=== PATIENT | male | born 1945 | race Caucasian/White ===

== ENCOUNTER 2016-04-25 13:59 | Outpatient (RCR) | payer MEDICARE, MEDICAID ==
[2016-02-29 14:20] LABS: BASOPHILS % (AUTO) 0 % (0-10); EOSINOPHILS % (AUTO) 1 % (0-10); LYMPHOCYTES # (AUTO) 0.8 X 10^3 (1.0-4.0); LYMPHOCYTES % (AUTO) 13 % (12-44); MEAN CORPUSCULAR HEMOGLOBIN 35 PG (25-34); MEAN CORPUSCULAR HGB CONC 32 G/DL (32-36); MEAN CORPUSCULAR VOLUME 110 FL (80-99); MEAN PLATELET VOLUME 10.9 FL (7.4-10.4); MONOCYTES # (AUTO) 0.7 X 10^3 (0.0-1.0); MONOCYTES % (AUTO) 12 % (0-12); NEUTROPHILS # (AUTO) 4.4 X 10^3 (1.8-7.8); NEUTROPHILS % (AUTO) 74 % (42-75); PLATELET COUNT 814 10^3/uL (130-400); RED BLOOD COUNT 3.07 10^6/uL (4.35-5.85); RED CELL DISTRIBUTION WIDTH 17.9 % (10.0-14.5); WHITE BLOOD COUNT 5.9 10^3/uL (4.3-11.0)
[2016-02-29 15:05] LABS: ALANINE AMINOTRANSFERASE 18 U/L (0-55); ALBUMIN 4.1 G/DL (3.2-4.5); ANION GAP 10 MMOL/L (5-14); ASPARTATE AMINO TRANSFERASE 18 U/L (5-34); BLOOD UREA NITROGEN 34 MG/DL (7-18); BUN/CREATININE RATIO 30; CALCIUM 8.9 MG/DL (8.5-10.1); CARBON DIOXIDE 18 MMOL/L (21-32); CHLORIDE 110 MMOL/L (98-107); CREATININE SERUM 1.13 MG/DL (0.60-1.30); GFR ESTIMATED > 60; GLUCOSE 90 MG/DL (70-105); POTASSIUM 4.2 MMOL/L (3.6-5.0); SODIUM 138 MMOL/L (135-145); TOTAL PROTEIN 7.2 G/DL (6.4-8.2)
[2016-02-29 16:43] LABS: %SAT TOTAL IRON BINDING CAPIC 33 % (15-50); TIBC 368 ug/dL (280-380)
[2016-03-01 08:08] LABS: UIBC 245 ug/dL (55-450)
[2016-03-01 08:09] LABS: FERRITIN 81 ng/mL (25-300)
[2016-03-28 14:19] LABS: BASOPHILS % (AUTO) 0 % (0-10); EOSINOPHILS % (AUTO) 0 % (0-10); LYMPHOCYTES % (AUTO) 13 % (12-44); MEAN CORPUSCULAR HEMOGLOBIN 34 PG (25-34); MEAN CORPUSCULAR HGB CONC 31 G/DL (32-36); MEAN CORPUSCULAR VOLUME 110 FL (80-99); MONOCYTES # (AUTO) 1.1 X 10^3 (0.0-1.0); MONOCYTES % (AUTO) 14 % (0-12); NEUTROPHILS # (AUTO) 5.6 X 10^3 (1.8-7.8); NEUTROPHILS % (AUTO) 72 % (42-75); PLATELET COUNT 755 10^3/uL (130-400); RED BLOOD COUNT 3.12 10^6/uL (4.35-5.85); RED CELL DISTRIBUTION WIDTH 16.7 % (10.0-14.5); WHITE BLOOD COUNT 7.8 10^3/uL (4.3-11.0)
[2016-03-28 14:58] LABS: ALBUMIN 4.1 G/DL (3.2-4.5); BILIRUBIN,TOTAL 1.1 MG/DL (0.1-1.0); CALCIUM 9.2 MG/DL (8.5-10.1); CREATININE SERUM 1.24 MG/DL (0.60-1.30); POTASSIUM 4.2 MMOL/L (3.6-5.0); TOTAL PROTEIN 7.1 G/DL (6.4-8.2)
[~2016-04-25 13:59] MED LIST: ACET650S13 PO; ALBU17AE3 IH; ANAG0.5C3 PO; ANAG1CAP2 PO; APIX2.5T PO; ASP325TEC PO; ASP81TEC PO; ASPI-892 PO; BENZ200C25 PO; CLIN300C11 PO; CPR500T PO; CYANOCOBALAMIN INJ 1000 MCG/ML (CANCER CENTER) ONE; DOXY100C42 PO; ENAL2.5T PO; ENAL5TAB PO; FAMO20TA5 PO; FOLI1TAB24 PO; FRSM20T PO; FURO20TA4 PO; HYDR118S10 PO; HYDR500C PO; HYDR500C2 PO; HYDROXUREA PO; IRON150C13 PO; KCL10CCR PO; LISI10TA2 PO; METO-270 PO; METO25TA PO; METO50TA7 PO; NF-ANAG0.5 PO; NF-HYD500C PO; OSLT75CRX PO; PANT40TA3 PO; PNT40TEC PO; POLY-IRON 150MG PO; PRD20T PO; PRM25T PO; RANI-10 PO; RANI150C11 PO; RNT150T PO; SCR1T1 PO; SENN1TAB76 PO; SUCR1TAB PO; hydro
[2016-04-25 14:25] LABS: BASOPHILS % (AUTO) 0 % (0-10); EOSINOPHILS % (AUTO) 0 % (0-10); LYMPHOCYTES # (AUTO) 0.8 X 10^3 (1.0-4.0); LYMPHOCYTES % (AUTO) 11 % (12-44); MEAN CORPUSCULAR HEMOGLOBIN 34 PG (25-34); MEAN CORPUSCULAR HGB CONC 31 G/DL (32-36); MEAN CORPUSCULAR VOLUME 107 FL (80-99); MEAN PLATELET VOLUME 10.9 FL (7.4-10.4); MONOCYTES # (AUTO) 0.7 X 10^3 (0.0-1.0); MONOCYTES % (AUTO) 11 % (0-12); NEUTROPHILS # (AUTO) 5.4 X 10^3 (1.8-7.8); NEUTROPHILS % (AUTO) 78 % (42-75); PLATELET COUNT 775 10^3/uL (130-400); RED BLOOD COUNT 3.18 10^6/uL (4.35-5.85); RED CELL DISTRIBUTION WIDTH 16.6 % (10.0-14.5)
[2016-04-25] MEDS ORDERED: CYANOCOBALAMIN INJ 1000 MCG/ML (CANCER CENTER) ONE (14:39)
[2016-04-25 15:03] LABS: CREATININE SERUM 1.2 MG/DL (0.60-1.30); POTASSIUM 4.1 MMOL/L (3.6-5.0)
[2016-04-25 16:53] LABS: %SAT TOTAL IRON BINDING CAPIC 22 % (15-50); TIBC 348 ug/dL (280-380)
[2016-04-26 08:14] LABS: FERRITIN 65 ng/mL (25-300); UIBC 270 ug/dL (55-450)
== END 2016-05-29 | disposition home or self-care (01) ==
LOC: ONC 13:59
PROVIDERS: ATTEND Internal Medicine Hematology & Oncology
DX: D69.6 Thrombocytopenia, unspecified (principal); D51.3 Other dietary vitamin B12 deficiency anemia; K58.9 Irritable bowel syndrome, unspecified; R73.9 Hyperglycemia, unspecified; K21.9 Gastro-esophageal reflux disease without esophagitis; Z79.899 Other long term (current) drug therapy; Z98.890 Other specified postprocedural states
CPT/HCPCS: 36415; 80053; 82607; 82728; 83540; 85025; 85045; 96372; 99213

== ENCOUNTER 2016-07-25 13:47 | Outpatient (RCR) | payer MEDICARE, MEDICAID ==
[2016-05-30 15:09] LABS: BASOPHILS % (AUTO) 0 % (0-10); EOSINOPHILS % (AUTO) 1 % (0-10); LYMPHOCYTES # (AUTO) 1.1 X 10^3 (1.0-4.0); LYMPHOCYTES % (AUTO) 16 % (12-44); MEAN CORPUSCULAR HEMOGLOBIN 32 PG (25-34); MEAN CORPUSCULAR HGB CONC 31 G/DL (32-36); MEAN CORPUSCULAR VOLUME 106 FL (80-99); MEAN PLATELET VOLUME 11.4 FL (7.4-10.4); MONOCYTES # (AUTO) 0.9 X 10^3 (0.0-1.0); MONOCYTES % (AUTO) 14 % (0-12); NEUTROPHILS # (AUTO) 4.6 X 10^3 (1.8-7.8); NEUTROPHILS % (AUTO) 70 % (42-75); PLATELET COUNT 624 10^3/uL (130-400); RED CELL DISTRIBUTION WIDTH 17.8 % (10.0-14.5); WHITE BLOOD COUNT 6.6 10^3/uL (4.3-11.0)
[2016-05-30 15:50] LABS: BILIRUBIN,TOTAL 1.2 MG/DL (0.1-1.0); CREATININE SERUM 1.43 MG/DL (0.60-1.30); POTASSIUM 4.5 MMOL/L (3.6-5.0); TOTAL PROTEIN 7.3 G/DL (6.4-8.2)
[2016-05-30 17:00] LABS: %SAT TOTAL IRON BINDING CAPIC 35 % (15-50); TIBC 348 ug/dL (280-380)
[2016-05-31 06:34] LABS: FERRITIN 41 ng/mL (25-300); UIBC 227 ug/dL (55-450)
[2016-06-27 14:43] LABS: BASOPHILS % (AUTO) 0 % (0-10); EOSINOPHILS % (AUTO) 0 % (0-10); LYMPHOCYTES # (AUTO) 0.9 X 10^3 (1.0-4.0); LYMPHOCYTES % (AUTO) 13 % (12-44); MEAN CORPUSCULAR HEMOGLOBIN 33 PG (25-34); MEAN CORPUSCULAR HGB CONC 32 G/DL (32-36); MEAN CORPUSCULAR VOLUME 105 FL (80-99); MEAN PLATELET VOLUME 11.7 FL (7.4-10.4); MONOCYTES # (AUTO) 0.8 X 10^3 (0.0-1.0); MONOCYTES % (AUTO) 11 % (0-12); NEUTROPHILS # (AUTO) 5.1 X 10^3 (1.8-7.8); NEUTROPHILS % (AUTO) 76 % (42-75); PLATELET COUNT 702 10^3/uL (130-400); RED BLOOD COUNT 3.31 10^6/uL (4.35-5.85); RED CELL DISTRIBUTION WIDTH 18.7 % (10.0-14.5); WHITE BLOOD COUNT 6.8 10^3/uL (4.3-11.0)
[2016-06-27 15:19] LABS: ALBUMIN 3.9 G/DL (3.2-4.5); BILIRUBIN,TOTAL 1.4 MG/DL (0.1-1.0); CALCIUM 8.8 MG/DL (8.5-10.1); CREATININE SERUM 1.42 MG/DL (0.60-1.30); TOTAL PROTEIN 7.2 G/DL (6.4-8.2)
[2016-07-25 14:11] LABS: BASOPHILS % (AUTO) 1 % (0-10); EOSINOPHILS % (AUTO) 1 % (0-10); LYMPHOCYTES # (AUTO) 1.1 X 10^3 (1.0-4.0); LYMPHOCYTES % (AUTO) 17 % (12-44); MEAN CORPUSCULAR HEMOGLOBIN 33 PG (25-34); MEAN CORPUSCULAR HGB CONC 31 G/DL (32-36); MEAN CORPUSCULAR VOLUME 107 FL (80-99); MEAN PLATELET VOLUME 11.2 FL (7.4-10.4); MONOCYTES # (AUTO) 0.9 X 10^3 (0.0-1.0); MONOCYTES % (AUTO) 16 % (0-12); NEUTROPHILS % (AUTO) 66 % (42-75); PLATELET COUNT 816 10^3/uL (130-400); RED BLOOD COUNT 3.24 10^6/uL (4.35-5.85); RED CELL DISTRIBUTION WIDTH 18.6 % (10.0-14.5); WHITE BLOOD COUNT 6.1 10^3/uL (4.3-11.0)
[2016-07-25 15:16] LABS: ALBUMIN 3.8 G/DL (3.2-4.5); BILIRUBIN,TOTAL 1.1 MG/DL (0.1-1.0); CREATININE SERUM 1.33 MG/DL (0.60-1.30); POTASSIUM 4.8 MMOL/L (3.6-5.0)
[2016-07-25] MEDS ORDERED: CYANOCOBALAMIN INJ 1000 MCG/ML (CANCER CENTER) INJ ONE (16:05)
== END 2016-08-28 | disposition home or self-care (01) ==
LOC: ONC 13:47
PROVIDERS: ATTEND Internal Medicine Hematology & Oncology
DX: D69.6 Thrombocytopenia, unspecified (principal); D51.3 Other dietary vitamin B12 deficiency anemia; K58.9 Irritable bowel syndrome, unspecified; R73.9 Hyperglycemia, unspecified; K21.9 Gastro-esophageal reflux disease without esophagitis; Z79.899 Other long term (current) drug therapy; Z98.890 Other specified postprocedural states
CPT/HCPCS: 36415; 80053; 82728; 83540; 85025; 96372; 99213

== ENCOUNTER → 2016-09-04 | Outpatient (CLI) | payer MEDICARE, MEDICAID ==
[~2016-09-04] MED LIST changes: -CYANOCOBALAMIN INJ 1000 MCG/ML (CANCER CENTER) ONE
--- NOTE | 2016-09-04 11:37 | Diagnostic Imaging Report ---
PROCEDURE: US left lower extremity venous. TECHNIQUE: Multiple real-time grayscale images were obtained over the left lower extremity in various projections. Additional duplex Doppler and color Doppler images were also obtained. INDICATION: Left leg pain and swelling. COMPARISON: 08/11/2015. TECHNIQUE: The left lower extremity deep venous system was interrogated from the common femoral vein through the popliteal vein. These images were assessed for grayscale appearance, color and spectral Doppler blood flow, compression, and augmentation. FINDINGS: There is no evidence of intraluminal filling defect. Normal compression and augmentation is noted throughout. Soft tissues are unremarkable. IMPRESSION: 1. No sonographic evidence of deep venous thrombosis in the left lower extremity. Dictated by: Dictated on workstation # [id number]
== END ==
LOC: RAD 11:04
PROVIDERS: ATTEND Internal Medicine Hematology & Oncology
DX: R22.42 Localized swelling, mass and lump, left lower limb (principal)

== ENCOUNTER 2016-11-01 14:12 | Outpatient (RCR) | payer MEDICARE, MEDICAID ==
[2016-09-04 10:39] LABS: BASOPHILS % (AUTO) 0 % (0-10); EOSINOPHILS # (AUTO) 0.1 10^3/uL (0.0-0.3); EOSINOPHILS % (AUTO) 1 % (0-10); LYMPHOCYTES # (AUTO) 0.8 X 10^3 (1.0-4.0); LYMPHOCYTES % (AUTO) 12 % (12-44); MEAN CORPUSCULAR HEMOGLOBIN 34 PG (25-34); MEAN CORPUSCULAR HGB CONC 32 G/DL (32-36); MEAN CORPUSCULAR VOLUME 106 FL (80-99); MEAN PLATELET VOLUME 11.5 FL (7.4-10.4); MONOCYTES # (AUTO) 0.6 X 10^3 (0.0-1.0); MONOCYTES % (AUTO) 8 % (0-12); NEUTROPHILS # (AUTO) 5.7 X 10^3 (1.8-7.8); NEUTROPHILS % (AUTO) 79 % (42-75); PLATELET COUNT 785 10^3/uL (130-400); RED BLOOD COUNT 3.46 10^6/uL (4.35-5.85); RED CELL DISTRIBUTION WIDTH 17.5 % (10.0-14.5); WHITE BLOOD COUNT 7.2 10^3/uL (4.3-11.0)
[2016-09-04 11:14] LABS: ALBUMIN 3.9 G/DL (3.2-4.5); BILIRUBIN,TOTAL 0.8 MG/DL (0.1-1.0); CALCIUM 9.2 MG/DL (8.5-10.1); CREATININE SERUM 1.69 MG/DL (0.60-1.30); POTASSIUM 5.2 MMOL/L (3.6-5.0); TOTAL PROTEIN 7.4 G/DL (6.4-8.2)
[2016-10-04 14:25] LABS: BASOPHILS % (AUTO) 1 % (0-10); EOSINOPHILS # (AUTO) 0.1 10^3/uL (0.0-0.3); EOSINOPHILS % (AUTO) 2 % (0-10); LYMPHOCYTES % (AUTO) 16 % (12-44); MEAN CORPUSCULAR HEMOGLOBIN 34 PG (25-34); MEAN CORPUSCULAR HGB CONC 32 G/DL (32-36); MEAN CORPUSCULAR VOLUME 106 FL (80-99); MEAN PLATELET VOLUME 11.3 FL (7.4-10.4); MONOCYTES % (AUTO) 17 % (0-12); NEUTROPHILS # (AUTO) 3.8 X 10^3 (1.8-7.8); NEUTROPHILS % (AUTO) 64 % (42-75); PLATELET COUNT 766 10^3/uL (130-400); RED BLOOD COUNT 3.12 10^6/uL (4.35-5.85); RED CELL DISTRIBUTION WIDTH 18.4 % (10.0-14.5); RETICULOCYTE % 1.72 % (0.50-2.40)
[2016-10-04 15:04] LABS: ALBUMIN 3.6 G/DL (3.2-4.5); BILIRUBIN,TOTAL 0.9 MG/DL (0.1-1.0); CALCIUM 9.2 MG/DL (8.5-10.1); CREATININE SERUM 1.74 MG/DL (0.60-1.30); POTASSIUM 5.1 MMOL/L (3.6-5.0); TOTAL PROTEIN 6.6 G/DL (6.4-8.2)
[~2016-11-01 14:12] MED LIST changes: +CYANOCOBALAMIN INJ 1000 MCG/ML (CANCER CENTER) ONE
[2016-11-01] MEDS ORDERED: CYANOCOBALAMIN INJ 1000 MCG/ML (CANCER CENTER) ONE (14:14)
[2016-11-01 14:22] LABS: BASOPHILS # (AUTO) 0.1 10^3/uL (0.0-0.1); BASOPHILS % (AUTO) 1 % (0-10); EOSINOPHILS # (AUTO) 0.2 10^3/uL (0.0-0.3); EOSINOPHILS % (AUTO) 2 % (0-10); LYMPHOCYTES % (AUTO) 13 % (12-44); MEAN CORPUSCULAR HEMOGLOBIN 34 PG (25-34); MEAN CORPUSCULAR HGB CONC 31 G/DL (32-36); MEAN CORPUSCULAR VOLUME 108 FL (80-99); MEAN PLATELET VOLUME 11.6 FL (7.4-10.4); MONOCYTES # (AUTO) 1.2 X 10^3 (0.0-1.0); MONOCYTES % (AUTO) 15 % (0-12); NEUTROPHILS # (AUTO) 5.4 X 10^3 (1.8-7.8); NEUTROPHILS % (AUTO) 69 % (42-75); PLATELET COUNT 782 10^3/uL (130-400); RED BLOOD COUNT 3.01 10^6/uL (4.35-5.85); RED CELL DISTRIBUTION WIDTH 18.4 % (10.0-14.5); WHITE BLOOD COUNT 7.9 10^3/uL (4.3-11.0)
[2016-11-01 14:40] LABS: ALBUMIN 3.6 GM/DL (3.2-4.5); BILIRUBIN,TOTAL 0.5 MG/DL (0.1-1.0); CREATININE SERUM 1.51 MG/DL (0.60-1.30); POTASSIUM 4.3 MMOL/L (3.6-5.0); TOTAL PROTEIN 7.3 GM/DL (6.4-8.2)
== END 2016-12-03 | disposition home or self-care (01) ==
LOC: ONC 14:12
PROVIDERS: ATTEND Internal Medicine Hematology & Oncology
DX: D69.6 Thrombocytopenia, unspecified (principal); D51.3 Other dietary vitamin B12 deficiency anemia; K58.9 Irritable bowel syndrome, unspecified; R73.9 Hyperglycemia, unspecified; K21.9 Gastro-esophageal reflux disease without esophagitis; Z79.899 Other long term (current) drug therapy; Z98.890 Other specified postprocedural states
CPT/HCPCS: 36415; 80053; 81270; 82728; 83540; 85025; 85045; 96372; 99213

== ENCOUNTER 2017-01-29 10:17 | Outpatient (RCR) | payer MEDICARE, MEDICAID ==
[2016-12-05 14:29] LABS: BASOPHILS % (AUTO) 1 % (0-10); EOSINOPHILS # (AUTO) 0.1 10^3/uL (0.0-0.3); EOSINOPHILS % (AUTO) 1 % (0-10); LYMPHOCYTES # (AUTO) 0.8 X 10^3 (1.0-4.0); LYMPHOCYTES % (AUTO) 10 % (12-44); MEAN CORPUSCULAR HEMOGLOBIN 34 PG (25-34); MEAN CORPUSCULAR HGB CONC 31 G/DL (32-36); MEAN CORPUSCULAR VOLUME 109 FL (80-99); MEAN PLATELET VOLUME 11.3 FL (7.4-10.4); MONOCYTES # (AUTO) 0.9 X 10^3 (0.0-1.0); MONOCYTES % (AUTO) 11 % (0-12); NEUTROPHILS # (AUTO) 5.9 X 10^3 (1.8-7.8); NEUTROPHILS % (AUTO) 77 % (42-75); PLATELET COUNT 684 10^3/uL (130-400); RED CELL DISTRIBUTION WIDTH 18.7 % (10.0-14.5); WHITE BLOOD COUNT 7.7 10^3/uL (4.3-11.0)
[2016-12-05 15:42] LABS: ALBUMIN 3.7 GM/DL (3.2-4.5); BILIRUBIN,TOTAL 0.9 MG/DL (0.1-1.0); CREATININE SERUM 1.6 MG/DL (0.60-1.30); POTASSIUM 5.1 MMOL/L (3.6-5.0); TOTAL PROTEIN 6.9 GM/DL (6.4-8.2)
[2017-01-02 15:06] LABS: BASOPHILS % (AUTO) 1 % (0-10); EOSINOPHILS % (AUTO) 1 % (0-10); LYMPHOCYTES # (AUTO) 0.8 X 10^3 (1.0-4.0); LYMPHOCYTES % (AUTO) 14 % (12-44); MEAN CORPUSCULAR HEMOGLOBIN 33 PG (25-34); MEAN CORPUSCULAR HGB CONC 31 G/DL (32-36); MEAN CORPUSCULAR VOLUME 107 FL (80-99); MEAN PLATELET VOLUME 11.9 FL (7.4-10.4); MONOCYTES # (AUTO) 0.9 X 10^3 (0.0-1.0); MONOCYTES % (AUTO) 15 % (0-12); NEUTROPHILS # (AUTO) 4.2 X 10^3 (1.8-7.8); NEUTROPHILS % (AUTO) 70 % (42-75); PLATELET COUNT 304 10^3/uL (130-400); RED BLOOD COUNT 3.01 10^6/uL (4.35-5.85); RED CELL DISTRIBUTION WIDTH 17.8 % (10.0-14.5); WHITE BLOOD COUNT 6.1 10^3/uL (4.3-11.0)
[2017-01-02 15:50] LABS: ALBUMIN 3.8 GM/DL (3.2-4.5); BILIRUBIN,TOTAL 0.9 MG/DL (0.1-1.0); CALCIUM 8.9 MG/DL (8.5-10.1); CREATININE SERUM 1.86 MG/DL (0.60-1.30); POTASSIUM 4.5 MMOL/L (3.6-5.0); TOTAL PROTEIN 6.8 GM/DL (6.4-8.2)
[2017-01-29] MEDS ORDERED: CYANOCOBALAMIN INJ 1000 MCG/ML (CANCER CENTER) ONE (10:19)
[2017-02-04] MEDS ORDERED: POTA10TA10 PO (00:04)
[2017-02-04] MEDS ORDERED: ANAG0.5C3 PO (00:04)
[2017-02-04] MEDS ORDERED: ONDA4TAB11 PO (02:08)
[2017-02-05] MEDS ORDERED: SUCR1TAB36 PO (11:58)
[2017-02-07] MEDS ORDERED: ASPI-983 PO (08:54)
[2017-02-07] MEDS ORDERED: ONDA4TAB8 PO (08:54)
[2017-02-07] MEDS ORDERED: IRON150C13 PO (10:14)
[2017-02-12] MEDS ORDERED: CIPR500T4 PO (11:17)
[2017-02-12] MEDS ORDERED: METR500T PO (11:17)
== END 2017-02-17 | disposition home or self-care (01) ==
LOC: ONC 10:17
PROVIDERS: ATTEND Internal Medicine Hematology & Oncology
DX: D69.6 Thrombocytopenia, unspecified (principal); D51.3 Other dietary vitamin B12 deficiency anemia; K58.9 Irritable bowel syndrome, unspecified; R73.9 Hyperglycemia, unspecified; K21.9 Gastro-esophageal reflux disease without esophagitis; Z79.899 Other long term (current) drug therapy; Z98.890 Other specified postprocedural states
CPT/HCPCS: 36415; 80053; 82274; 82728; 83540; 85025; 96372

== ENCOUNTER → 2017-02-01 | Outpatient (CLI) | payer MEDICARE, MEDICAID ==
[~2017-02-01] MED LIST changes: -CYANOCOBALAMIN INJ 1000 MCG/ML (CANCER CENTER) ONE
== END ==
LOC: PREOP 05:31
PROVIDERS: ATTEND Surgery
DX: Z01.818 Encounter for other preprocedural examination (principal); R10.13 Epigastric pain; K21.9 Gastro-esophageal reflux disease without esophagitis

== ENCOUNTER 2017-02-03 23:50 | Emergency (ER) | payer MEDICARE, MEDICAID ==
[~2017-02-03] VITALS: Ht 172.7 cm; Wt 59.0 kg
[2017-02-04] MEDS ORDERED: ANAG0.5C3 PO ×2 (00:04)
[2017-02-04] MEDS ORDERED: POTA10TA10 PO ×2 (00:04)
[2017-02-04] MEDS ORDERED: ONDANSETRON 4 MG (ZOFRAN) ORAL DISSOLVE TAB PO ONE (00:45)
--- NOTE | 2017-02-04 00:54 | ED GI ---
General Chief Complaint: Abdominal/GI Problems Stated Complaint: VOMITING Nursing Triage Note: NAUSEA/ABDOMINAL PAIN /P EATING TONIGHT Sepsis Screen: No Definite Risk Source of Information: Patient Exam Limitations: No Limitations History of Present Illness Time Seen By Provider: 00:38 Initial Comments Patient presents to ER by private conveyance with chief complaint that he felt good all day today within his woke up tonight and started having some epigastric pain and nausea with vomiting twice. She is no blood in the nausea or vomiting. He's had no diarrhea. No rash shortness of breath chest pain or history of coronary disease. He is not feeling numbness however he did have some sweats earlier. Allergies and Home Medications Allergies Coded Allergies: No Known Drug Allergies (Verified , 07/21/09) Home Medications Anagrelide HCl 0.5 Mg Capsule, (Reported) Aspirin 81 Mg Tabec, 81 MG PO DAILY, (Reported) Folic Acid 1 Mg Tablet, 1 MG PO DAILY, (Reported) LAST FILLED 12/13/15 #30 Furosemide 20 Mg Tablet, 20 MG PO DAILY, (Reported) Hydroxyurea 500 Mg Capsule, 500 MG PO DAILY, (Reported) Lisinopril 10 Mg Tablet, 10 MG PO DAILY, (Reported) Metoprolol Succinate 25 Mg Tab.er.24h, 25 MG PO DAILY, (Reported) Pantoprazole Sodium 40 Mg Tablet.dr, 40 MG PO DAILY, (Reported) Potassium Chloride 10 Meq Tablet.er, (Reported) Review of Systems Constitutional: No chills, diaphoresis EENTM: No Eye Pain, No Ear Pain Respiratory: Denies Cough, Denies Shortness of Air Cardiovascular: Denies Chest Pain, Denies Palpitations, Denies Syncope Gastrointestinal: See HPI, Abdominal Pain, Denies Constipated, Denies Diarrhea , Nausea Genitourinary: Denies Burning, Denies Discharge Musculoskeletal: No back pain, No joint pain Skin: No pruritus, No rash Psychiatric/Neurological: Denies Headache, Denies Numbness, Denies Paresthesia Past [id number]-[id number] Hx Patient Social History Alcohol Use: Denies Use Recreational Drug Use: No Smoking Status: Never a Smoker 2nd Hand Smoke Exposure: No Recent Foreign Travel: No Contact w/Someone Who Travel: No Recent Infectious Disease Expo: No Recent Hopitalizations: No Immunizations Up To Date Tetanus Booster (TDap): Unknown PED Vaccines UTD: No Seasonal Allergies Seasonal Allergies: No Surgeries History of Surgeries: Yes (Hip surgery 2010 Hemorrhoids, appendix, ulcers) Surgeries: Abdominal, Appendectomy, Cardiac, Joint Replacement, Orthopedic, Rectal Respiratory History of Respiratory Disorde: No Currently Using CPAP: No Currently Using BIPAP: No Cardiovascular History of Cardiac Disorders: Yes (CORONARY ARTERY DISEASE; CARDIAC CATHS --NO INTERVENTION; CHF) Cardiac Disorders: Chronic Edema/Swelling, Coronary Artery Disease, Deep Vein Thrombosis, High Cholesterol, Hypertension, Peripheral Vascular Neurological History of Neurological Disord: No Reproductive System Hx Reproductive Disorders: No Sexually Transmitted Disease: No HIV/AIDS: No Genitourinary History of Genitourinary Disor: No Gastrointestinal History of Gastrointestinal Di: Yes Gastrointestinal Disorders: Gastroesophageal Reflux, Gastrointestinal Bleed, Esophagitis, Hiatal Hernia, Ulcer Musculoskeletal History of Musculoskeletal Dis: Yes Musculoskeletal Disorders: Arthritis Endocrine History of Endocrine Disorders: No HEENT History of HEENT Disorders: No Loss of Vision: Denies Hearing Impairment: Denies Cancer History of Cancer: Yes (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) Cancer: Skin Psychosocial History of Psychiatric Problem: No Integumentary History of Skin or Integumenta: No Blood Transfusions History of Blood Disorders: Yes (ANEMIA, THROMBOCYTOPENIA) Adverse Reaction to a Blood Tr: No Family Medical History Significant Family History: No Pertinent Family Hx Physical Exam Vital Signs VS - Last 72 Hours, by Label 02/04/17 00:04 Temp 97.8 Pulse 55 Resp 18 B/P (MAP) 182/87 Pulse Ox 98 O2 Delivery Room Air Capillary Refill : Less Than 3 Seconds General Appearance: WD/WN, no apparent distress HEENT: PERRL/EOMI, TMs normal, pharynx normal Neck: non-tender, supple, normal inspection Respiratory: chest non-tender, lungs clear, normal breath sounds Cardiovascular: normal peripheral pulses, regular rate, rhythm, no edema Gastrointestinal: normal bowel sounds, soft, no organomegaly, tenderness ( epigastric) Extremities: normal range of motion, normal capillary refill Back: normal inspection, no CVA tenderness Neurologic/Psychiatric: alert, oriented x 3 Skin: normal color, warm/dry Progress/Results/Core Measures Results/Orders Lab Results Laboratory Tests Test 02/04/17 00:30 02/04/17 00:55 Range/Units White Blood Count 13.6 H 4.3-11.0 10^3/uL Red Blood Count 3.28 L 4.35-5.85 10^6/uL Hemoglobin 11.3 L 13.3-17.7 G/DL Hematocrit 35 L 40-54 % Mean Corpuscular Volume 105 H 80-99 FL Mean Corpuscular Hemoglobin 35 H 25-34 PG Mean Corpuscular Hemoglobin Concent 33 32-36 G/DL Red Cell Distribution Width 17.9 H 10.0-14.5 % Platelet Count 437 H 130-400 10^3/uL Mean Platelet Volume 11.9 H 7.4-10.4 FL Neutrophils (%) (Auto) 85 H 42-75 % Lymphocytes (%) (Auto) 5 L 12-44 % Monocytes (%) (Auto) 10 0-12 % Eosinophils (%) (Auto) 0 0-10 % Basophils (%) (Auto) 0 0-10 % Neutrophils # (Auto) 11.5 H 1.8-7.8 X 10^3 Lymphocytes # (Auto) 0.6 L 1.0-4.0 X 10^3 Monocytes # (Auto) 1.3 H 0.0-1.0 X 10^3 Eosinophils # (Auto) 0.0 0.0-0.3 10^3/uL Basophils # (Auto) 0.1 0.0-0.1 10^3/uL Sodium Level 146 H 135-145 MMOL/L Potassium Level 3.7 3.6-5.0 MMOL/L Chloride Level 110 H 98-107 MMOL/L Carbon Dioxide Level 21 21-32 MMOL/L Anion Gap 15 H 5-14 MMOL/L Blood Urea Nitrogen 24 H 7-18 MG/DL Creatinine 1.41 H 0.60-1.30 MG/DL Estimat Glomerular Filtration Rate 49 BUN/Creatinine Ratio 17 Glucose Level 144 H 70-105 MG/DL Calcium Level 9.5 8.5-10.1 MG/DL Magnesium Level 2.2 1.8-2.4 MG/DL Total Bilirubin 1.1 H 0.1-1.0 MG/DL Aspartate Amino Transf (AST/SGOT) 18 5-34 U/L Alanine Aminotransferase (ALT/SGPT) 14 0-55 U/L Alkaline Phosphatase 101 40-136 U/L Troponin I < 0.30 <0.30 NG/ML Total Protein 7.6 6.4-8.2 GM/DL Albumin 4.2 3.2-4.5 GM/DL Lipase 24 8-78 U/L Urine Color YELLOW Urine Clarity CLEAR Urine pH 6 5-9 Urine Specific Cascade 1.015 L 1.016-1.022 Urine Protein 1+ H NEGATIVE Urine Glucose (UA) NEGATIVE NEGATIVE Urine Ketones NEGATIVE NEGATIVE Urine Nitrite NEGATIVE NEGATIVE Urine Bilirubin NEGATIVE NEGATIVE Urine Urobilinogen NORMAL NORMAL MG/DL Urine Leukocyte Esterase NEGATIVE NEGATIVE Urine RBC (Auto) NEGATIVE NEGATIVE Urine RBC RARE /HPF Urine WBC NONE /HPF Urine Crystals NONE /LPF Urine Bacteria NEGATIVE /HPF Urine Casts NONE /LPF Urine Mucus NEGATIVE /LPF Urine Culture Indicated NO My Orders Orders - ALVARO JACOBS Cbc With Automated Diff (02/04/17 00:44) Comprehensive Metabolic Panel (02/04/17 00:44) Lipase (02/04/17 00:44) Magnesium (02/04/17 00:44) Troponin I (02/04/17 00:44) Ua Culture If Indicated (02/04/17 00:44) Chest 1 View, Ap/Pa Only (02/04/17 00:44) Ondansetron Oral Dissolve Tab (Zofran (02/04/17 00:45) Ekg Tracing (02/04/17 00:54) Rx-Ondansetron Po (Rx-Zofran Po) (02/04/17 02:06) Medications Given in ED Current Medications Medications Dose Ordered Sig/Sarbjit Route Start Time Stop Time Status Last Admin Dose Admin Ondansetron HCl 4 mg ONCE ONCE PO 02/04/17 00:45 02/04/17 00:49 DC 02/04/17 00:51 4 MG Vital Signs/I&O Vital Sign - Last 12Hours 02/04/17 00:04 Temp 97.8 Pulse 55 Resp 18 B/P (MAP) 182/87 Pulse Ox 98 O2 Delivery Room Air Blood Pressure Mean: 118 Progress Note : Time: 00:53 Progress Note Mild concern for atypical cardiac symptoms so we'll grab an EKG and a troponin as well however this does look like more likely to be a viral gastroenteritis. We'll check a urine and some basic labs thing about pancreas, or other worsening infections. ECG Initial ECG Impression Date: Feb 04, 2017 Initial ECG Impression Time: 01:05 Initial ECG Rate: 70 Initial ECG Rhythm: Normal Sinus Initial ECG Intervals: Normal Initial ECG Impression: Normal, Nonspecific Changes (premature ventricular contractions.) Initial ECG Comparisson: No Previous ECG Available Comment No ST wave elevation or depression Diagnostic Imaging Diagonstic Imaging: Xray Plain Films/CT/US/NM/MRI: chest Comments No acute cardiopulmonary processes noted. Reviewed: Reviewed by Me Departure Impression Impression: Primary Impression: Gastroenteritis Disposition: HOME, SELF-CARE Condition: Stable Departure-Patient Inst. Decision time for Depature: 02:07 Referrals: [facility] (PCP/Family) Primary Care Physician Patient Instructions: Viral Gastroenteritis Add. Discharge Instructions: Use the nausea medicine called Zofralessandra every 4 hours as needed by placing a tablet under your tongue and allow it to dissolve. Keep plenty of fluids on board get some rest use Tylenol or Motrin as necessary and if your symptoms get worse you can follow-up with her primary care physician. Expect this to last for about 3-5 days tops. All discharge instructions reviewed with patient and/ or family. Voiced understanding. Scripts Ondansetron (Ondansetron Odt) 4 Mg Tab.rapdis 4 MG PO Q6H Y for NAUSEA/VOMITING, #8 TAB 0 Refills Prov: ALVARO JACOBS 02/04/17 Copy Copies To 1: YUNIOR CAMPBELL DO ALVARO JACOBS Feb 04, 2017 00:53
[2017-02-04 01:02] LABS: BASOPHILS # (AUTO) 0.1 10^3/uL (0.0-0.1); BASOPHILS % (AUTO) 0 % (0-10); EOSINOPHILS % (AUTO) 0 % (0-10); LYMPHOCYTES # (AUTO) 0.6 X 10^3 (1.0-4.0); LYMPHOCYTES % (AUTO) 5 % (12-44); MEAN CORPUSCULAR HEMOGLOBIN 35 PG (25-34); MEAN CORPUSCULAR HGB CONC 33 G/DL (32-36); MEAN CORPUSCULAR VOLUME 105 FL (80-99); MEAN PLATELET VOLUME 11.9 FL (7.4-10.4); MONOCYTES # (AUTO) 1.3 X 10^3 (0.0-1.0); MONOCYTES % (AUTO) 10 % (0-12); NEUTROPHILS # (AUTO) 11.5 X 10^3 (1.8-7.8); NEUTROPHILS % (AUTO) 85 % (42-75); PLATELET COUNT 437 10^3/uL (130-400); RED BLOOD COUNT 3.28 10^6/uL (4.35-5.85); RED CELL DISTRIBUTION WIDTH 17.9 % (10.0-14.5); WHITE BLOOD COUNT 13.6 10^3/uL (4.3-11.0)
[2017-02-04 01:23] LABS: ALANINE AMINOTRANSFERASE 14 U/L (0-55); ALBUMIN 4.2 GM/DL (3.2-4.5); ANION GAP 15 MMOL/L (5-14); ASPARTATE AMINO TRANSFERASE 18 U/L (5-34); BILIRUBIN,TOTAL 1.1 MG/DL (0.1-1.0); BLOOD UREA NITROGEN 24 MG/DL (7-18); BUN/CREATININE RATIO 17; CALCIUM 9.5 MG/DL (8.5-10.1); CARBON DIOXIDE 21 MMOL/L (21-32); CHLORIDE 110 MMOL/L (98-107); CREATININE SERUM 1.41 MG/DL (0.60-1.30); GFR ESTIMATED 49; GLUCOSE 144 MG/DL (70-105); LIPASE 24 U/L (8-78); MAGNESIUM 2.2 MG/DL (1.8-2.4); POTASSIUM 3.7 MMOL/L (3.6-5.0); SODIUM 146 MMOL/L (135-145); TOTAL PROTEIN 7.6 GM/DL (6.4-8.2)
[2017-02-04 01:29] LABS: TROPONIN I < 0.30 NG/ML (<0.30)
[2017-02-04 01:54] LABS: BILIRUBIN,URINE NEGATIVE (NEGATIVE); KETONES,URINE NEGATIVE (NEGATIVE); LEUKOCYTE ESTERASE ,URINE NEGATIVE (NEGATIVE); NITRITE,URINE NEGATIVE (NEGATIVE); PH,URINE 6 (5-9); PROTEIN,URINE 1+ (NEGATIVE); UROBILINOGEN,URINE NORMAL (NORMAL)
[2017-02-04] MEDS ORDERED: RX-ONDANSETRON 4 MG ODT (ZOFRAN) PPK #4 PO STA (02:06)
[2017-02-04] MEDS ORDERED: ONDA4TAB11 PO ×2 (02:08)
[2017-02-04 02:14] VITALS: BP 181/96
--- NOTE | 2017-02-04 08:03 | Diagnostic Imaging Report ---
Portable chest. INDICATION: Nausea. Comparison made with prior examination from September 16, 2014. FINDINGS: Chronic interstitial lung changes are stable. There is no focal infiltrate or effusion. There is no pneumothorax. Heart size prominent without evidence of failure. There are multiple surgical clips within the upper abdomen. IMPRESSION: Stable radiographic appearance of the chest with chronic interstitial changes within the lungs. Cardiomegaly is stable. There is no evidence of failure or focal pulmonary infiltrate. Dictated by: Dictated on workstation # [id number]
[2017-02-05] MEDS ORDERED: SUCR1TAB36 PO ×2 (11:58)
== END 2017-02-04 02:14 | disposition home or self-care (01) ==
LOC: EDUNIT# 23:50 → ER 23:52
DX: K52.9 Noninfective gastroenteritis and colitis, unspecified (principal); I25.10 Atherosclerotic heart disease of native coronary artery without angina pectoris; E78.00 Pure hypercholesterolemia, unspecified; I11.0 Hypertensive heart disease with heart failure; I50.9 Heart failure, unspecified; I73.9 Peripheral vascular disease, unspecified; K21.9 Gastro-esophageal reflux disease without esophagitis; M19.90 Unspecified osteoarthritis, unspecified site; Z85.828 Personal history of other malignant neoplasm of skin; Z86.718 Personal history of other venous thrombosis and embolism; Z79.82 Long term (current) use of aspirin; Z87.19 Personal history of other diseases of the digestive system; Z90.49 Acquired absence of other specified parts of digestive tract
CPT/HCPCS: 36415; 71010; 80053; 81000; 83690; 83735; 84484; 85025; 93005

== ENCOUNTER 2017-02-05 09:57 | Day surgery (SDC) | payer MEDICARE, MEDICAID ==
[~2017-02-05] VITALS: Ht 172.7 cm; Wt 59.0 kg
[~2017-02-05 09:57] MED LIST changes: +ONDA4TAB11 PO; +POTA10TA10 PO
[2017-02-05] MEDS ORDERED: HURRICAINE EXT TUBE (BENZOCAINE) XX PRN (10:30)
[2017-02-05] MEDS ORDERED: NS IV 500 ML 500 ML IV PRN (10:30)
[2017-02-05 10:39] VITALS: BP 146/79
--- NOTE | 2017-02-05 11:24 | History & Physicial ---
History of Present Illness History of Present Illness Reason for visit/HPI to undergo an upper endoscopy regarding epigastric pain. Substernal pain and ruled out to be noncardiac in nature. Date of Admission Date Seen by Provider: Feb 05, 2017 Time Seen by Provider: 11:22 I consulted on this patient on 02/05/17 11:22 Attending Physician Monica Tay MD Admitting Physician [facility] Allergies and Home Medications Allergies Coded Allergies: No Known Drug Allergies (Verified , 07/21/09) Home Medications Anagrelide HCl 0.5 Mg Capsule, (Reported) Aspirin 81 Mg Tabec, 81 MG PO DAILY, (Reported) Folic Acid 1 Mg Tablet, 1 MG PO DAILY, (Reported) LAST FILLED 12/13/15 #30 Furosemide 20 Mg Tablet, 20 MG PO DAILY, (Reported) Hydroxyurea 500 Mg Capsule, 500 MG PO DAILY, (Reported) Lisinopril 10 Mg Tablet, 10 MG PO DAILY, (Reported) Metoprolol Succinate 25 Mg Tab.er.24h, 25 MG PO DAILY, (Reported) Ondansetron 4 Mg Tab.rapdis, 4 MG PO Q6H PRN for NAUSEA/VOMITING, #8 Ref 0 Prescribed by: ALVARO JACOBS on 02/04/17 0208 Pantoprazole Sodium 40 Mg Tablet.dr, 40 MG PO DAILY, (Reported) Potassium Chloride 10 Meq Tablet.er, (Reported) Past Klkscem-Erwjuu-Rzghiq Hx Patient Social History Marrital Status: single Employed/Student: unemployed Alcohol Use: Denies Use Recreational Drug Use: No Smoking Status: Never a Smoker 2nd Hand Smoke Exposure: No Recent Foreign Travel: No Contact w/other who traveled: No Recent Hopitalizations: No Recent Infectious Disease Expo: No Immunizations Up To Date Tetanus Booster (TDap): Unknown Pediatric: No Seasonal Allergies Seasonal Allergies: No Surgeries Yes (Hip surgery 2010 Hemorrhoids, appendix, ulcers) Abdominal, Appendectomy, Cardiac, Joint Replacement, Orthopedic, Rectal Respiratory No Currently Using CPAP: No Currently Using BIPAP: No Cardiovascular Yes (CORONARY ARTERY DISEASE; CARDIAC CATHS --NO INTERVENTION; CHF) Chronic Edema/Swelling, Coronary Artery Disease, Deep Vein Thrombosis, High Cholesterol, Hypertension, Peripheral Vascular Neurological No Reproductive System Hx Reproductive Disorders: No Sexually Transmitted Disease: No HIV/AIDS: No Genitourinary No Gastrointestinal Yes Gastroesophageal Reflux, Gastrointestinal Bleed, Esophagitis, Hiatal Hernia, Ulcer Musculoskeletal Yes Arthritis Endocrine History of Endocrine Disorders: No HEENT History of HEENT Disorders: No Loss of Vision: Denies Hearing Impairment: Denies Cancer Yes (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) Skin Psychosocial History of Psychiatric Problem: No Integumentary History of Skin or Integumenta: No Blood Transfusions History of Blood Disorders: Yes (ANEMIA, THROMBOCYTOPENIA) Adverse Reaction to a Blood Tr: No Family Medical History Significant Family History: No Pertinent Family Hx Constitutional: malaise, weakness EENTM: no symptoms reported Respiratory: no symptoms reported, see HPI Cardiovascular: chest pain Gastrointestinal: see HPI Genitourinary: no symptoms reported Musculoskeletal: back pain Skin: no symptoms reported Psychiatric/Neurological: Anxiety Physical Exam Vital Signs Vital Sign - Last 12Hours 02/05/17 10:39 Temp 98.7 Pulse 78 Resp 16 B/P (MAP) 146/79 Pulse Ox 97 O2 Delivery Room Air Capillary Refill : General Appearance: Anxious, Cachetic HEENT: TMs Normal Neck: Normal Inspection Respiratory: Lungs Clear Cardiovascular: Regular Rate, Rhythm Gastrointestinal: Non Tender, Soft Back: Normal Inspection Extremity: Normal Inspection Skin: Warm/Dry Assessment/Plan Assessment and Plan epigastric and substernal pain. Acute cardiac issues ruled out. For upper endoscopy. Previous distal gastrectomy with Billroth II anastomosis Problems: MONICA TAY MD Feb 05, 2017 11:24 am
--- NOTE | 2017-02-05 11:25 | Conscious Sedation/ASA ---
Conscious Sedation Pre-Proced Time Reviewed: 11:24 ASA Class: 3 Airway Mallampati Classification: ([place] appropriate class) I. II. III, IV Lungs Heart ASA score ASA 1: a normal healthy patient ASA 2: a patient with a mild systemic disease (mid diabetes, controlled hypertension, obesity ASA 3: a patient with a severe systemic disease that limits activity (angina , COPD, prior Myocardial infarction) ASA 4: a patient with an incapacitating disease that is a constant threat to life (CHF, renal failure) ASA 5: a moribund patient not expected to survive 24 hrs. (ruptured aneurysm) ASA 6: a declared brain patient whose organs are being harvested. For emergent operations, add the letter E after the classification Grade 1 Sedation Plan: Discussed options with patient/fam Note The patient is an appropriate candidate to undergo the planned procedure, sedation, and anesthesia. The patient immediately re-assessed prior to indication. MONICA TAY MD Feb 05, 2017 11:25 am
[2017-02-05] MEDS ORDERED: fentaNYL INJECTION 100 MCG/2 ML AMP ONE (11:27)
[2017-02-05] MEDS ORDERED: MIDAZOLAM 2 MG/2 ML (VERSED) VIAL ONE ×2 (11:28)
[2017-02-05] MEDS ORDERED: HURRICAINE EXT TUBE (BENZOCAINE) ONE (11:28)
[2017-02-05] MEDS: fentaNYL INJECTION 100 MCG/2 ML AMP IVP PRN ×2 (11:35→11:40)
[2017-02-05] MEDS: MIDAZOLAM 2 MG/2 ML (VERSED) VIAL IVP PRN ×2 (11:36→11:39)
--- NOTE | 2017-02-05 11:56 | Endo Procedure Record ---
Endo Procedure Report Date of Procedure Feb 05, 2017 Surgeon (s) MONICA TAY MD Post Procedure/Op Diagnosis post operative changes consistent with Billroth I reconstruction. Mild distal gastritis Procedure Performed EGD with biopsy Description of Procedure Anesthesia Type: Conscious Sedation Specimen(s) collected/removed mucosa of gastric body Description of the Procedure indication for procedure: This gentleman has been evaluated for substernal and epigastric pain. Once An acute cardiac event was ruled out, it was felt reasonable to perform an upper endoscopy. 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 Informed consent was obtained after reviewing the procedures in detail. Description of the procedure: She was placed supine on the gurney and conscious sedation achieved using Versed and fentanyl. The flexible gastroscope was introduced down the esophagus, past the gastric remnant into the small bowel. Findings: Esophagus: Mild of edematous with a short hiatal hernia Stomach: Postoperative changes consistent with a Billroth I reconstruction. There was minimal inflammation of the body of the stomach and a biopsy for H. pylori obtained. The small bowel itself looked normal. He tolerated the procedure well and was taken back to the nursing area in a stable condition. Impression:Epigastric pain. Postoperative changes in the stomach. Mild gastritis. We will try Carafate Copies To: NATASHA BILLINGSLEY MD Copies To: ANDRES ONTIVEROS MD, XAVIER M MD Feb 05, 2017 11:56 am
[2017-02-05] MEDS ORDERED: SUCR1TAB36 PO ×2 (11:58)
[2017-02-05 12:15] VITALS: BP 148/78
[2017-02-05 12:45] VITALS: BP 154/88
[2017-02-05 13:00] VITALS: BP 154/88
== END 2017-02-05 13:00 | disposition home or self-care (01) ==
LOC: ENDO 09:57
PROVIDERS: ATTEND Surgery
DX: K29.70 Gastritis, unspecified, without bleeding (principal); Z98.890 Other specified postprocedural states; I25.10 Atherosclerotic heart disease of native coronary artery without angina pectoris; I50.9 Heart failure, unspecified; E78.00 Pure hypercholesterolemia, unspecified; I10 Essential (primary) hypertension; I73.9 Peripheral vascular disease, unspecified; Z86.718 Personal history of other venous thrombosis and embolism

== ENCOUNTER 2017-02-06 21:20 | Inpatient (IN) | payer MEDICARE, MEDICAID ==
[~2017-02-06] VITALS: Ht 170.2 cm; Wt 62.3 kg
[~2017-02-06 21:20] MED LIST changes: -METO-270 PO; +METO-387 PO; +SUCR1TAB36 PO
[2017-02-06 21:52] LABS: BASOPHILS % (AUTO) 0 % (0-10); EOSINOPHILS % (AUTO) 0 % (0-10); LYMPHOCYTES # (AUTO) 0.5 X 10^3 (1.0-4.0); LYMPHOCYTES % (AUTO) 2 % (12-44); MEAN CORPUSCULAR HEMOGLOBIN 34 PG (25-34); MEAN CORPUSCULAR HGB CONC 33 G/DL (32-36); MEAN CORPUSCULAR VOLUME 103 FL (80-99); MEAN PLATELET VOLUME 12.3 FL (7.4-10.4); MONOCYTES # (AUTO) 2.1 X 10^3 (0.0-1.0); MONOCYTES % (AUTO) 9 % (0-12); NEUTROPHILS # (AUTO) 21.2 X 10^3 (1.8-7.8); NEUTROPHILS % (AUTO) 89 % (42-75); PLATELET COUNT 354 10^3/uL (130-400); RED BLOOD COUNT 3.57 10^6/uL (4.35-5.85); RED CELL DISTRIBUTION WIDTH 17.9 % (10.0-14.5); WHITE BLOOD COUNT 23.8 10^3/uL (4.3-11.0)
[2017-02-06 22:06] LABS: ALBUMIN 3.5 GM/DL (3.2-4.5); BILIRUBIN,TOTAL 2.6 MG/DL (0.1-1.0); CALCIUM 9.8 MG/DL (8.5-10.1); CREATININE SERUM 1.98 MG/DL (0.60-1.30); POTASSIUM 3.8 MMOL/L (3.6-5.0); TOTAL PROTEIN 7.4 GM/DL (6.4-8.2)
[2017-02-06 22:08] LABS: BILIRUBIN,URINE NEGATIVE (NEGATIVE); KETONES,URINE NEGATIVE (NEGATIVE); LEUKOCYTE ESTERASE ,URINE 1+ (NEGATIVE); NITRITE,URINE NEGATIVE (NEGATIVE); PH,URINE 5 (5-9); PROTEIN,URINE 2+ (NEGATIVE); UROBILINOGEN,URINE 1 MG/DL (NORMAL)
[2017-02-06 22:09] LABS: BAND NEUTROPHILS 4 %; BASOPHILS % (MANUAL) 0 %; EOSINOPHILS % (MANUAL) 0 %; LYMPHOCYTES % (MANUAL) 0 %; NEUTROPHILS % (MANUAL) 92 %; POLYCHROMASIA SLIGHT
[2017-02-06 22:10] LABS: HOWELL-JOLLY BODIES MARKED
[2017-02-06 22:16] LABS: WBC,URINE 0-2 /HPF
[2017-02-06] MEDS ORDERED: fentaNYL INJECTION 100 MCG/2 ML AMP IVP STA (23:23)
[2017-02-06] MEDS ORDERED: metroNIDAZOLE 500MG/100ML IVPB 100 ML IV ONE (23:30)
[2017-02-07] MEDS ORDERED: ONDANSETRON 4 MG/2 ML (SDV) Z0FRAN IVP ONE
[2017-02-07 00:25] VITALS: BP 149/64
[2017-02-07] MEDS ORDERED: CATHETER FLUSH 10 ML SYR IV PRN (01:15)
[2017-02-07] MEDS: fentaNYL INJECTION 100 MCG/2 ML AMP IV PRN ×3 (02:00→23:23)
[2017-02-07] MEDS: CIPROFLOXACIN 400 MG/D5W 200 ML (PRE-MIX) IV SCH ×2 (02:00→12:59)
[2017-02-07] MEDS: D5 1/2 NS W/KCL 20 MEQ/L 1,000 ML IV SCH ×4 (02:00→21:17)
[2017-02-07 04:00] VITALS: BP 139/74
--- NOTE | 2017-02-07 05:06 | ED Abdominal Pain ---
General Chief Complaint: Abdominal/GI Problems Stated Complaint: DIVERTICULITIS Nursing Triage Note: PT TO ED PER EMS FOR C/O ABD PAIN, N/V ET CONSTIPATION. PT REPORTS HE WAS SEEN IN THIS ED X2-3 DAYS AGO BUT DENIES IMPROVEMENT. ALSO REPORTS HE DID NOT F/U W / HIS PCP AFTER BEING SEEN IN THIS ED. NO OTHER C/O VOICED Sepsis Screen: No Definite Risk Source of Information: Patient, Old Records (ALL PMH IS FROM OLD RECORDS) Exam Limitations: Other (PT IS VERY POOR HISTORIAN ABOUT PMH AND DOES NOT KNOW HIS MEDICATIONS OR WHY/WHAT HE TAKES THEM FOR. ) History of Present Illness Time Seen By Provider: 21:45 Initial Comments C/O SEVERE LLQ PAIN SINCE THIS AM C/O NAUSEA AND HAS VOMITED X 8-9 TODAY NO DIARRHEA--NO BM IN 2 DAYS + SWEATS, AND POSSIBLY HAS HAD FEVER, BUT DID NOT CHECK TEMPERATURE NO URINARY SYMPTOMS PT WAS SEEN HERE 02/03/17 FOR EPIGASTRIC PAIN AND NAUSEA/VOMITING--DX WITH GASTROENTERITIS HAD EGD YESTERDAY BY DR. TAY WHICH SHOWED MILD GASTRITIS HAS HISTORY OF GI BLEEDS AND HAD STOMACH RESECTION FOR BLEEDING ULCERS IN THE PAST PCP: [facility] [place] SURGEON: DR. TAY' PICKLING TANK OPERATOR: DR. BILLINGSLEY HEMATOLOGY: DR. TALLEY Allergies and Home Medications Allergies Coded Allergies: No Known Drug Allergies (Verified , 07/21/09) Home Medications Anagrelide HCl 0.5 Mg Capsule, (Reported) Aspirin 81 Mg Tabec, 81 MG PO DAILY, (Reported) Folic Acid 1 Mg Tablet, 1 MG PO DAILY, (Reported) LAST FILLED 12/13/15 #30 Furosemide 20 Mg Tablet, 20 MG PO DAILY, (Reported) Hydroxyurea 500 Mg Capsule, 500 MG PO DAILY, (Reported) Lisinopril 10 Mg Tablet, 10 MG PO DAILY, (Reported) Metoprolol Succinate 25 Mg Tab.er.24h, 25 MG PO DAILY, (Reported) Ondansetron 4 Mg Tab.rapdis, 4 MG PO Q6H PRN for NAUSEA/VOMITING, #8 Ref 0 Prescribed by: ALVARO JACOBS on 02/04/17 0208 Pantoprazole Sodium 40 Mg Tablet.dr, 40 MG PO DAILY, (Reported) Potassium Chloride 10 Meq Tablet.er, (Reported) Sucralfate 1 Gm Tablet, 1 GM PO TID for 10 Days, #30 Ref 0 Prescribed by: MONICA TAY on 02/05/17 1158 Review of Systems Constitutional: see HPI, diaphoresis, fever EENTM: No Symptoms Reported Respiratory: No Symptoms Reported Cardiovascular: No Symptoms Reported Gastrointestinal: See HPI, Abdominal Pain, Constipated, Denies Diarrhea, Nausea , Poor Appetite, Poor Fluid Intake Genitourinary: No Symptoms Reported Musculoskeletal: no symptoms reported Skin: no symptoms reported Psychiatric/Neurological: No Symptoms Reported Endocrine: No Symptoms Reported Hematologic/Lymphatic: No Symptoms Reported Past Msfmynb-Dgozbe-Xodzlt Hx Patient Social History Alcohol Use: Denies Use Recreational Drug Use: No Smoking Status: Never a Smoker 2nd Hand Smoke Exposure: No Recent Foreign Travel: No Contact w/Someone Who Travel: No Recent Infectious Disease Expo: No Recent Hopitalizations: No Physical Abuse: No Sexual Abuse: No Mistreated: No Fear: No Immunizations Up To Date Tetanus Booster (TDap): Unknown PED Vaccines UTD: No Seasonal Allergies Seasonal Allergies: No Surgeries History of Surgeries: Yes ([facility] TOTAL HIP REPLACEMENT 2009; HEMORRHOIDECTOMY; EXPLORAROY LAP; STOMACH RESECTION FOR ULCERS/BILROTH 1; EGD'S/COLONOSCOPIES; CARDIAC CATH X 2--LAST ONE 08/2014) Surgeries: Abdominal, Appendectomy, Cardiac, Joint Replacement, Orthopedic, Rectal Respiratory History of Respiratory Disorde: Yes (ASPIRATION PNEUMONIA/SEPSIS 12/2015) Currently Using CPAP: No Currently Using BIPAP: No Cardiovascular History of Cardiac Disorders: Yes (CORONARY ARTERY DISEASE; CARDIAC CATHS --NO INTERVENTION; CHF; PVD RIGHT LEG) Cardiac Disorders: Chronic Edema/Swelling, Coronary Artery Disease, Deep Vein Thrombosis, High Cholesterol, Hypertension, Peripheral Vascular Neurological History of Neurological Disord: No Reproductive System Hx Reproductive Disorders: No Sexually Transmitted Disease: No HIV/AIDS: No Genitourinary History of Genitourinary Disor: Yes (RENAL CYSTS) Gastrointestinal History of Gastrointestinal Di: Yes Gastrointestinal Disorders: Gastroesophageal Reflux, Gastrointestinal Bleed, Esophagitis, Hiatal Hernia, Ulcer Musculoskeletal History of Musculoskeletal Dis: Yes Musculoskeletal Disorders: Arthritis Endocrine History of Endocrine Disorders: No HEENT History of HEENT Disorders: Yes (POOR DENTITION) Loss of Vision: Denies Hearing Impairment: Denies Cancer History of Cancer: Yes (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) Cancer: Skin Psychosocial History of Psychiatric Problem: No Suicide Risk Score: 0 Integumentary History of Skin or Integumenta: Yes (SKIN CANCER) Blood Transfusions History of Blood Disorders: Yes (ANEMIA, THROMBOCYTOPENIA) Adverse Reaction to a Blood Tr: No Family Medical History Significant Family History: No Pertinent Family Hx Family Medial History: Physical Exam Vital Signs VS - Last 72 Hours, by Label 02/06/17 21:20 Temp 97.5 Pulse 76 Resp 16 B/P (MAP) 149/84 Pulse Ox 95 O2 Delivery Room Air Capillary Refill : Less Than 3 Seconds General Appearance: no apparent distress, thin, other (DIRTY/UNKEMPT/MALODOROUS ; HICCUPS) HEENT: PERRL/EOMI, other (POOR DENTITION) Neck: normal inspection Respiratory: normal breath sounds, no respiratory distress, no accessory muscle use Cardiovascular: regular rate, rhythm, no murmur Gastrointestinal: normal bowel sounds, soft, no organomegaly, No distended, guarding (LLQ), rebound, tenderness (MILD EPIGASTRIC TENDERNESS; SEVERE LLQ TENDERNESS), No hernia, No mass Extremities: normal inspection, normal capillary refill Back: no CVA tenderness Neurologic/Psychiatric: job captain II-XII nml as tested, no motor/sensory deficits, alert, normal mood/affect, oriented x 3 Skin: normal color, warm/dry, No rash Focused Exam Evaluation Lactate Level Laboratory Tests 02/06/17 22:48: Lactic Acid Level 1.56 Lactic Acid Level Laboratory Tests Test 02/06/17 22:48 Lactic Acid Level 1.56 MMOL/L (0.50-2.00) Progress/Results/Core Measures Results/Orders Lab Results Laboratory Tests Test 02/06/17 21:25 02/06/17 21:55 02/06/17 22:48 Range/Units White Blood Count 23.8 H 4.3-11.0 10^3/uL Red Blood Count 3.57 L 4.35-5.85 10^6/uL Hemoglobin 12.2 L 13.3-17.7 G/DL Hematocrit 37 L 40-54 % Mean Corpuscular Volume 103 H 80-99 FL Mean Corpuscular Hemoglobin 34 25-34 PG Mean Corpuscular Hemoglobin Concent 33 32-36 G/DL Red Cell Distribution Width 17.9 H 10.0-14.5 % Platelet Count 354 130-400 10^3/uL Mean Platelet Volume 12.3 H 7.4-10.4 FL Neutrophils (%) (Auto) 89 H 42-75 % Lymphocytes (%) (Auto) 2 L 12-44 % Monocytes (%) (Auto) 9 0-12 % Eosinophils (%) (Auto) 0 0-10 % Basophils (%) (Auto) 0 0-10 % Neutrophils # (Auto) 21.2 H 1.8-7.8 X 10^3 Lymphocytes # (Auto) 0.5 L 1.0-4.0 X 10^3 Monocytes # (Auto) 2.1 H 0.0-1.0 X 10^3 Eosinophils # (Auto) 0.0 0.0-0.3 10^3/uL Basophils # (Auto) 0.0 0.0-0.1 10^3/uL Neutrophils % (Manual) 92 % Lymphocytes % (Manual) 0 % Monocytes % (Manual) 4 % Eosinophils % (Manual) 0 % Basophils % (Manual) 0 % Band Neutrophils 4 % Nucleated Red Blood Cells 1 Polychromasia SLIGHT Macrocytosis MODERATE Rob-Ashdown Bodies MARKED Sodium Level 143 135-145 MMOL/L Potassium Level 3.8 3.6-5.0 MMOL/L Chloride Level 108 H 98-107 MMOL/L Carbon Dioxide Level 23 21-32 MMOL/L Anion Gap 12 5-14 MMOL/L Blood Urea Nitrogen 44 H 7-18 MG/DL Creatinine 1.98 H 0.60-1.30 MG/DL Estimat Glomerular Filtration Rate 33 BUN/Creatinine Ratio 22 Glucose Level 128 H 70-105 MG/DL Calcium Level 9.8 8.5-10.1 MG/DL Total Bilirubin 2.6 H 0.1-1.0 MG/DL Aspartate Amino Transf (AST/SGOT) 19 5-34 U/L Alanine Aminotransferase (ALT/SGPT) 16 0-55 U/L Alkaline Phosphatase 87 40-136 U/L Total Protein 7.4 6.4-8.2 GM/DL Albumin 3.5 3.2-4.5 GM/DL Amylase Level 22 L 25-125 U/L Lipase 4 L 8-78 U/L Urine Color FREDY H Urine Clarity SLIGHTLY CLOUDY Urine pH 5 5-9 Urine Specific [place] 1.015 L 1.016-1.022 Urine Protein 2+ H NEGATIVE Urine Glucose (UA) NEGATIVE NEGATIVE Urine Ketones NEGATIVE NEGATIVE Urine Nitrite NEGATIVE NEGATIVE Urine Bilirubin NEGATIVE NEGATIVE Urine Urobilinogen 1 NORMAL MG/DL Urine Leukocyte Esterase 1+ H NEGATIVE Urine RBC (Auto) 1+ H NEGATIVE Urine RBC NONE /HPF Urine WBC 0-2 /HPF Urine Crystals NONE /LPF Urine Bacteria NONE /HPF Urine Casts NONE /LPF Urine Mucus SMALL H /LPF Urine Culture Indicated NO Lactic Acid Level 1.56 0.50-2.00 MMOL/L My Orders Orders - JAYDA MERRITT DO Saline Lock/Iv-Start (02/06/17 21:46) Amylase (02/06/17 21:46) Cbc With Automated Diff (02/06/17 21:46) Comprehensive Metabolic Panel (02/06/17 21:46) Lipase (02/06/17 21:46) Ua Culture If Indicated (02/06/17 21:46) Manual Differential (02/06/17 21:25) Ct Abdomen/Pelvis Wo (02/06/17 22:25) Lactic Acid Analyzer (02/06/17 22:40) Blood Culture (02/06/17 22:40) Vital Signs/I&O Vital Sign - Last 12Hours 02/06/17 21:20 Temp 97.5 Pulse 76 Resp 16 B/P (MAP) 149/84 Pulse Ox 95 O2 Delivery Room Air Blood Pressure Mean: 92 Progress Note : Progress Note PAIN AND NAUSEA EASED AT TIME OF ADMIT. NO DETERIORATION IN PT'S CONDITION DURING ER STAY Diagnostic Imaging Comments CT ABDOMEN/PELVIS--DIVERTICULOSIS WITH DIVERTICULITIS, REACTIVE ILEUS, OTHER NON -ACUTE FINDINGS--PER [facility] VIA FAX @ [phone] Reviewed: Reviewed by Me Departure Communication (Admissions) Progress Notes 5--SPOKE WITH DR. STOLL, SURGEON BUSINESS DEVELOPMENT ASSOCIATE. ADVISES TO ADMIT TO MEDICINE AND HAVE DR. TAY CONSULTED IN AM 2319--SPOKE WITH DR. VILLARREAL, ACCEPTS PT FOR ADMIT. Impression Impression: Primary Impression: Diverticulitis of intestine Additional Impressions: Renal insufficiency Dehydration Disposition: ADMITTED INPATIENT Condition: Improved Admissions Decision to Admit Reason: Admit from ER (General) Decision to Admit/Date: Feb 06, 2017 Time/Decision to Admit Time: 23:15 Departure-Patient Inst. Referrals: [facility] (PCP) Primary Care Physician JAYDA MERRITT DO Feb 07, 2017 05:06
[2017-02-07] MEDS: ONDANSETRON 4 MG/2 ML (SDV) Z0FRAN IV PRN ×4 (05:22→20:16)
[2017-02-07] MEDS: CATHETER FLUSH 10 ML SYR IV SCH ×3 (05:23→20:16)
[2017-02-07] MEDS: metroNIDAZOLE 500 MG/100 ML IVPB (PRE-MIX) IV SCH ×4 (05:23→23:23)
[2017-02-07 06:48] LABS: BASOPHILS % (AUTO) 0 % (0-10); EOSINOPHILS % (AUTO) 0 % (0-10); LYMPHOCYTES # (AUTO) 0.6 X 10^3 (1.0-4.0); LYMPHOCYTES % (AUTO) 3 % (12-44); MEAN CORPUSCULAR HEMOGLOBIN 34 PG (25-34); MEAN CORPUSCULAR HGB CONC 33 G/DL (32-36); MEAN CORPUSCULAR VOLUME 104 FL (80-99); MEAN PLATELET VOLUME 12.2 FL (7.4-10.4); MONOCYTES # (AUTO) 2.5 X 10^3 (0.0-1.0); MONOCYTES % (AUTO) 11 % (0-12); NEUTROPHILS # (AUTO) 19.6 X 10^3 (1.8-7.8); NEUTROPHILS % (AUTO) 86 % (42-75); PLATELET COUNT 357 10^3/uL (130-400); RED BLOOD COUNT 3.71 10^6/uL (4.35-5.85); RED CELL DISTRIBUTION WIDTH 17.9 % (10.0-14.5); WHITE BLOOD COUNT 22.7 10^3/uL (4.3-11.0)
[2017-02-07 07:09] LABS: ALBUMIN 3.5 GM/DL (3.2-4.5); BILIRUBIN,TOTAL 2.3 MG/DL (0.1-1.0); CALCIUM 9.5 MG/DL (8.5-10.1); CREATININE SERUM 1.67 MG/DL (0.60-1.30); POTASSIUM 3.8 MMOL/L (3.6-5.0); TOTAL PROTEIN 7.4 GM/DL (6.4-8.2)
[2017-02-07 08:17] VITALS: BP 146/77
[2017-02-07] MEDS: PANTOPRAZOLE 40 MG/10 ML (PROTONIX) VIAL IV SCH (08:19)
--- NOTE | 2017-02-07 08:50 | Diagnostic Imaging Report ---
PROCEDURE: CT abdomen and pelvis without contrast. TECHNIQUE: Multiple contiguous axial images were obtained through the abdomen and pelvis without the use of intravenous contrast. INDICATION: Throwing up, can't keep anything down. Lower abdominal pain. CORRELATION STUDY: 01/16/2016. FINDINGS: The lung bases are clear. Multiple surgical clips in the epigastric region. The unenhanced liver, atrophic pancreas, and adrenal glands are unremarkable. The spleen appears to be absent with perhaps a small splenule noted. Multiple hypodense masses, particularly of the left kidney, are present favoring probable cysts but could be localized cystic renal disease. No obstructive uropathy. Asymmetric atrophic changes, particularly of the left kidney, are noted. There is a hyperdense nodule in the superior pole of the left kidney present. An additional cyst with septation is noted. The abdominal aorta is normal in contour. There is diverticulosis with thickening of a segment of bowel with surrounding stranding and inflammatory change, suggestive of colonic diverticulitis of the sigmoid colon. There is the presence of moderate fluid-filled small bowel loops which may be a reactive ileus due to the diverticulitis. The possibility of enteritis or less likely obstruction is not excluded. No free air. The urinary bladder is decompressed. Significant metallic artifact owing to bilateral hip hardware obscures the pelvis. IMPRESSION: 1. The findings are compatible with likely sigmoid colon diverticulitis versus focal colitis. Fluid-filled mildly dilated loops of bowel are present, likely a reactive ileus secondary to these findings. The possibility of enteritis or less likely obstruction is not excluded. 2. Multiple renal nodules including complex cysts and hyperdense nodules are present. Correlation with a postcontrast enhanced or renal specific imaging would be recommended for followup on a nonemergent basis. Neoplasm should not be excluded at this time. 3. 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 4. A preliminary report was provided by [facility]. Dictated by: Dictated on workstation # [id number]
[2017-02-07] MEDS ORDERED: ONDA4TAB8 PO (08:54)
[2017-02-07] MEDS ORDERED: ASPI-983 PO (08:54)
[2017-02-07] MEDS ORDERED: IRON150C13 PO (10:14)
[2017-02-07 12:30] VITALS: BP 146/79
--- NOTE | 2017-02-07 13:24 | History & Physicial (CHS) ---
HPI History of Present Illness: Patient states he started having stomach problems about 3 days ago with nausea, vomiting and abdominal pain and just not feeling well. He denies diarrhea, in fact states he has had a hard time having a bowel movement and states his last BM and flatus that he recalls was about 2 days ago. He has not had fever that he knows of. He does have fairly significant difficulty in reporting his medical conditions and medications, which is typical for him. Exam Limitations: clinical condition Date seen by provider: Feb 07, 2017 Time Seen by Provider: 10:12 Attending Physician Antony San MD PCP [place],[facility] Consult Date of Admission Feb 06, 2017 at 11:20 pm Home Medications Home Medications Reviewed patient Home Medication Reconciliation Form Allergies Coded Allergies: No Known Drug Allergies (Verified , 07/21/09) PHK-Ntpuuj-Hoavbd Hx Patient Social History Alcohol Use: Denies Use Recreational Drug Use: No Smoking Status: Never a Smoker 2nd Hand Smoke Exposure: No Recent Foreign Travel: No Contact w/other who traveled: No Recent Hopitalizations: No Recent Infectious Disease Expo: No Physical Abuse Screen: No Sexual Abuse: No Immunizations Up To Date Tetanus Booster (TDap): Unknown Past Medical History PMHx: HTN Chronic non-ischemic systolic heart failure GERD Thrombocythemia Anemia Intermittent renal insufficiency BPH Posterior tibial vein thrombosis Pernicious anemia/B12 deficiency Rodrigues's esophagus PSurgHx: Right hip replacement Gastrectomy Splenectomy Appendectomy Family Medical History Significant Family History: No Pertinent Family Hx Family History: Review of Systems ([facility]) Constitutional: No dizziness, No fever, malaise EENTM: no symptoms reported Respiratory: No cough, No short of breath Cardiovascular: chest pain (intermittent brief episodes, none currently) Gastrointestinal: see HPI Genitourinary: no symptoms reported Musculoskeletal: No joint pain Skin: No rash Psychiatric/Neurological: No Symptoms Reported Reviewed Test Results Reviewed Test Results Lab Laboratory Tests Test 02/06/17 21:25 02/06/17 21:55 02/06/17 22:48 02/07/17 06:18 Range/Units White Blood Count 23.8 H 22.7 H 4.3-11.0 10^3/uL Red Blood Count 3.57 L 3.71 L 4.35-5.85 10^6/uL Hemoglobin 12.2 L 12.7 L 13.3-17.7 G/DL Hematocrit 37 L 38 L 40-54 % Mean Corpuscular Volume 103 H 104 H 80-99 FL Mean Corpuscular Hemoglobin 34 34 25-34 PG Mean Corpuscular Hemoglobin Concent 33 33 32-36 G/DL Red Cell Distribution Width 17.9 H 17.9 H 10.0-14.5 % Platelet Count 354 357 130-400 10^3/uL Mean Platelet Volume 12.3 H 12.2 H 7.4-10.4 FL Neutrophils (%) (Auto) 89 H 86 H 42-75 % Lymphocytes (%) (Auto) 2 L 3 L 12-44 % Monocytes (%) (Auto) 9 11 0-12 % Eosinophils (%) (Auto) 0 0 0-10 % Basophils (%) (Auto) 0 0 0-10 % Neutrophils # (Auto) 21.2 H 19.6 H 1.8-7.8 X 10^3 Lymphocytes # (Auto) 0.5 L 0.6 L 1.0-4.0 X 10^3 Monocytes # (Auto) 2.1 H 2.5 H 0.0-1.0 X 10^3 Eosinophils # (Auto) 0.0 0.0 0.0-0.3 10^3/uL Basophils # (Auto) 0.0 0.0 0.0-0.1 10^3/uL Neutrophils % (Manual) 92 % Lymphocytes % (Manual) 0 % Monocytes % (Manual) 4 % Eosinophils % (Manual) 0 % Basophils % (Manual) 0 % Band Neutrophils 4 % Nucleated Red Blood Cells 1 Polychromasia SLIGHT Macrocytosis MODERATE Rob-[place] Bodies MARKED Sodium Level 143 142 135-145 MMOL/L Potassium Level 3.8 3.8 3.6-5.0 MMOL/L Chloride Level 108 H 108 H 98-107 MMOL/L Carbon Dioxide Level 23 23 21-32 MMOL/L Anion Gap 12 11 5-14 MMOL/L Blood Urea Nitrogen 44 H 42 H 7-18 MG/DL Creatinine 1.98 H 1.67 H 0.60-1.30 MG/DL Estimat Glomerular Filtration Rate 33 41 BUN/Creatinine Ratio 22 25 Glucose Level 128 H 133 H 70-105 MG/DL Calcium Level 9.8 9.5 8.5-10.1 MG/DL Total Bilirubin 2.6 H 2.3 H 0.1-1.0 MG/DL Aspartate Amino Transf (AST/SGOT) 19 12 5-34 U/L Alanine Aminotransferase (ALT/SGPT) 16 14 0-55 U/L Alkaline Phosphatase 87 87 40-136 U/L Total Protein 7.4 7.4 6.4-8.2 GM/DL Albumin 3.5 3.5 3.2-4.5 GM/DL Amylase Level 22 L 25-125 U/L Lipase 4 L 8-78 U/L Urine Color FREDY H Urine Clarity SLIGHTLY CLOUDY Urine pH 5 5-9 Urine Specific [place] 1.015 L 1.016-1.022 Urine Protein 2+ H NEGATIVE Urine Glucose (UA) NEGATIVE NEGATIVE Urine Ketones NEGATIVE NEGATIVE Urine Nitrite NEGATIVE NEGATIVE Urine Bilirubin NEGATIVE NEGATIVE Urine Urobilinogen 1 NORMAL MG/DL Urine Leukocyte Esterase 1+ H NEGATIVE Urine RBC (Auto) 1+ H NEGATIVE Urine RBC NONE /HPF Urine WBC 0-2 /HPF Urine Crystals NONE /LPF Urine Bacteria NONE /HPF Urine Casts NONE /LPF Urine Mucus SMALL H /LPF Urine Culture Indicated NO Lactic Acid Level 1.56 0.50-2.00 MMOL/L Radiology CT abdomen/pelvis 02/06: "IMPRESSION: 1. The findings are compatible with likely sigmoid colon diverticulitis versus focal colitis. Fluid-filled mildly dilated loops of bowel are present, likely a reactive ileus secondary to these findings. The possibility of enteritis or less likely obstruction is not excluded. 2. Multiple renal nodules including complex cysts and hyperdense nodules are present. Correlation with a postcontrast enhanced or renal specific imaging would be recommended for followup on a nonemergent basis. Neoplasm should not be excluded at this time. 3. 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 4. A preliminary report was provided by [facility]." Physical Exam-([facility]) Physical Exam Vital Signs VS - Last 72 Hours, by Label 02/06/17 02/07/17 02/07/17 02/07/17 21:20 00:15 00:25 04:00 Temp 97.5 98.8 98.7 Pulse 76 75 78 74 Resp 16 18 18 18 B/P (MAP) 149/84 149/64 139/74 Pulse Ox 95 97 98 96 O2 Delivery Room Air Room Air Room Air Room Air 02/07/17 08:17 Temp 98.6 Pulse 76 Resp 22 B/P (MAP) 146/77 Pulse Ox 98 O2 Delivery Room Air Capillary Refill : Less Than 3 Seconds General Appearance: no apparent distress Respiratory: lungs clear, normal breath sounds Cardiovascular: regular rate, rhythm, no edema, no murmur Gastrointestinal: normal bowel sounds, distended, tenderness (diffuse) Extremities: no pedal edema Neurologic/Psychiatric: alert, normal mood/affect Skin: normal color, warm/dry Assessment/Plan Assessment/Plan Admission Dx Diverticulitis with reactive ileus Chronic macrocytic anemia Acute on chronic renal insufficiency Chronic bilirubin elevation History of thrombocythemia History of chronic systolic heart failure, stable Plan Diverticulitis with reactive ileus- with significant leukocytosis. supportive care with anti-emetics, IVF. Cipro/flagyl. Monitor status closely given report of significant time since flatus and frequent vomiting, may need NG for decompression Chronic macrocytic anemia due to vitamin B12 deficiency- on monthly B12 injections per Hematology, stable Acute on chronic renal insufficiency- appears slightly above baseline since May, chart review reveals that at 12/2016 Hematology visit plan was for referral to Nephrology; appears hypovolemic due to vomiting and poor intake, IVF and hold furosemide -Also note of renal cysts on CT scan which were present last year, may need further imaging evaluation non-emergently Chronic bilirubin elevation- unclear etiology, work-up per Hematology with no dilated bile ducts, plan for monitoring History of thrombocythemia- previously on hydroxyurea which is on home med list , but last Hematology note states that was discontinued and changed to Anagrelide due to worsening anemia. Anagrelide changed to 0.5 mg BID at last Hematology visit 12/2016 with goal of platelets less than 400 and hemoglobin over 10. Holding anagrelide for now due to nausea. History of chronic compensated systolic heart failure, stable- continue home metoprolol and aspirin, hold lisinopril d/t renal function and furosemide due to hypovolemia DVT ppx- enoxaparin Diagnosis/Problems: Clinical Quality Measures DVT/VTE Risk/Contraindication: Risk Factor Score Per Nursin RFS Level Per Nursing on Admit: 3=High Copy Copies To 1: ANDRES ONTIVEROS MD,ANTONY Mclain MD Feb 07, 2017 1:24 pm
[2017-02-07] MEDS: ENOXAPARIN 40 MG/0.4 ML (LOVENOX) SYR SQ SCH (14:06)
--- NOTE | 2017-02-07 16:01 | Consultation ---
History of Present Illness History of Present Illness Patient Consulted On(jay/time) 02/07/17 15:57 Date Seen by Provider: Feb 07, 2017 Time Seen by Provider: 15:58 Reason for Visit: LLQ pain with CT changes of sigmoid diverticulitis History of Present Illness See above Allergies and Home Medications Allergies Coded Allergies: No Known Drug Allergies (Verified , 07/21/09) Home Medications Anagrelide HCl 0.5 Mg Capsule, 0.5 MG PO BID, (Reported) Aspirin 81 Mg Tablet.dr, 81 MG PO DAILY, (Reported) Folic Acid 1 Mg Tablet, 1 MG PO DAILY, (Reported) Furosemide 20 Mg Tablet, 20 MG PO DAILY, (Reported) Hydroxyurea 500 Mg Capsule, 500 MG PO DAILY, (Reported) LAST FILLED #90 09-08-16 Iron Polysaccharide Complex 150 Mg Capsule, 150 MG PO BID, (Reported) Lisinopril 10 Mg Tablet, 10 MG PO DAILY, (Reported) LAST FILLED #30 12-19-16 Metoprolol Succinate 25 Mg Tab.er.24h, 25 MG PO DAILY, (Reported) Ondansetron 4 Mg Tab.rapdis, 4 MG PO Q6H PRN for NAUSEA/VOMITING-1ST LINE, ( Reported) Pantoprazole Sodium 40 Mg Tablet.dr, 40 MG PO DAILY, (Reported) Potassium Chloride 10 Meq Tablet.er, 10 MEQ PO DAILY, (Reported) Past Ncxujmc-Sjoxwi-Bdkwkp Hx Patient Social History Alcohol Use: Denies Use Recreational Drug Use: No Smoking Status: Never a Smoker 2nd Hand Smoke Exposure: No Recent Foreign Travel: No Contact w/Someone Who Travel: No Recent Infectious Disease Expo: No Recent Hopitalizations: No Physical Abuse: No Sexual Abuse: No Mistreated: No Fear: No Immunizations Up To Date Tetanus Booster (TDap): Unknown PED Vaccines UTD: No Seasonal Allergies Seasonal Allergies: No Surgeries History of Surgeries: Yes ([employer] TOTAL HIP REPLACEMENT 2009; HEMORRHOIDECTOMY; EXPLORAROY LAP; STOMACH RESECTION FOR ULCERS/BILROTH 1; EGD'S/COLONOSCOPIES; CARDIAC CATH X 2--LAST ONE 08/2014) Surgeries: Abdominal, Appendectomy, Cardiac, Joint Replacement, Orthopedic, Rectal Respiratory History of Respiratory Disorde: Yes (ASPIRATION PNEUMONIA/SEPSIS 12/2015) Currently Using CPAP: No Currently Using BIPAP: No Cardiovascular History of Cardiac Disorders: Yes (CORONARY ARTERY DISEASE; CARDIAC CATHS --NO INTERVENTION; CHF; PVD RIGHT LEG) Cardiac Disorders: Chronic Edema/Swelling, Coronary Artery Disease, Deep Vein Thrombosis, High Cholesterol, Hypertension, Peripheral Vascular Neurological History of Neurological Disord: No Reproductive System Hx Reproductive Disorders: No Sexually Transmitted Disease: No HIV/AIDS: No Genitourinary History of Genitourinary Disor: Yes (RENAL CYSTS) Gastrointestinal History of Gastrointestinal Di: Yes Gastrointestinal Disorders: Gastroesophageal Reflux, Gastrointestinal Bleed, Esophagitis, Hiatal Hernia, Ulcer Musculoskeletal History of Musculoskeletal Dis: Yes Musculoskeletal Disorders: Arthritis Endocrine History of Endocrine Disorders: No HEENT History of HEENT Disorders: Yes (POOR DENTITION) Loss of Vision: Denies Hearing Impairment: Denies Cancer History of Cancer: Yes (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) Cancer: Skin Psychosocial History of Psychiatric Problem: No Suicide Risk Score: 0 Integumentary History of Skin or Integumenta: Yes (SKIN CANCER) Blood Transfusions History of Blood Disorders: Yes (ANEMIA, THROMBOCYTOPENIA) Adverse Reaction to a Blood Tr: No Family Medical History Significant Family History: No Pertinent Family Hx Family Medial History: Physical Exam-General Problems Physical Exam Vital Signs Vital Sign - Last 12Hours 02/06/17 21:20 Temp 97.5 Pulse 76 Resp 16 B/P (MAP) 149/84 Pulse Ox 95 O2 Delivery Room Air Capillary Refill : Less Than 3 Seconds General Appearance: no apparent distress Neck: normal inspection Gastrointestinal: soft, other Comments Upper midline scar with no hernia. Mild LLQ tenderness Assessment/Plan Assessment/Plan Admission Diagnosis/Plan Sigmoid diverticulitis. Will manage with IV antiobiotics & observe Clinical Quality Measures DVT/VTE Risk/Contraindication: Risk Factor Score Per Nursin RFS Level Per Nursing on Admit: 3=High MONICA TAY MD Feb 07, 2017 4:01 pm
[2017-02-07 16:56] VITALS: BP 133/75
[2017-02-07 20:55] VITALS: BP 146/77
[2017-02-08] VITALS: BP 134/78
[2017-02-08] MEDS: ONDANSETRON 4 MG/2 ML (SDV) Z0FRAN IV PRN ×4 (00:04→23:19)
[2017-02-08] MEDS: CIPROFLOXACIN 400 MG/D5W 200 ML (PRE-MIX) IV SCH ×2 (01:12→12:28)
[2017-02-08] MEDS: metroNIDAZOLE 500 MG/100 ML IVPB (PRE-MIX) IV SCH ×4 (05:27→23:19)
[2017-02-08] MEDS: D5 1/2 NS W/KCL 20 MEQ/L 1,000 ML IV SCH ×4 (05:28→23:19)
[2017-02-08] MEDS: CATHETER FLUSH 10 ML SYR IV SCH ×3 (05:28→20:53)
[2017-02-08 06:00] LABS: BASOPHILS % (AUTO) 0 % (0-10); EOSINOPHILS % (AUTO) 0 % (0-10); LYMPHOCYTES # (AUTO) 0.7 X 10^3 (1.0-4.0); LYMPHOCYTES % (AUTO) 4 % (12-44); MEAN CORPUSCULAR HEMOGLOBIN 33 PG (25-34); MEAN CORPUSCULAR HGB CONC 31 G/DL (32-36); MEAN CORPUSCULAR VOLUME 106 FL (80-99); MONOCYTES # (AUTO) 2.1 X 10^3 (0.0-1.0); MONOCYTES % (AUTO) 12 % (0-12); NEUTROPHILS # (AUTO) 14.7 X 10^3 (1.8-7.8); NEUTROPHILS % (AUTO) 84 % (42-75); PLATELET COUNT 419 10^3/uL (130-400); RED BLOOD COUNT 3.35 10^6/uL (4.35-5.85); RED CELL DISTRIBUTION WIDTH 17.7 % (10.0-14.5); WHITE BLOOD COUNT 17.5 10^3/uL (4.3-11.0)
[2017-02-08 06:35] LABS: ALBUMIN 2.9 GM/DL (3.2-4.5); BILIRUBIN,TOTAL 1.3 MG/DL (0.1-1.0); CALCIUM 8.8 MG/DL (8.5-10.1); CREATININE SERUM 1.24 MG/DL (0.60-1.30); POTASSIUM 3.9 MMOL/L (3.6-5.0); TOTAL PROTEIN 6.1 GM/DL (6.4-8.2)
[2017-02-08 08:00] VITALS: BP 136/84
[2017-02-08] MEDS: ASPIRIN E.C. 81 MG (ECOTRIN) TAB PO SCH (08:21)
[2017-02-08] MEDS: PANTOPRAZOLE 40 MG/10 ML (PROTONIX) VIAL IV SCH (08:21)
[2017-02-08] MEDS: METOCLOPRAMIDE INJ 10 MG/2 ML (REGLAN) IVP PRN ×2 (11:22→20:53)
--- NOTE | 2017-02-08 11:49 | Progress Note (SOAP) ---
Subjective Date Seen by Provider: Feb 08, 2017 Time Seen by Provider: 09:15 Subjective/Events-last exam Nausea with slight decrease of pain over the left lower quadrant. Passing flatus. Poor appetite. Review of Systems General: No Chills, No Night Sweats, No Fatigue, No Malaise HEENT: No Head Aches, No Eye Pain, No Ear Pain, No Dysphasia, No Sinus Congestion, No Post Nasal Drip, No Sore Throat Pulmonary: Cough Cardiovascular: No: Chest Pain, Palpitations, Orthopnea, Paroxysmal Noc. Dyspnea, Edema, Lt Headedness Gastrointestinal: Nausea, Abdominal Pain Genitourinary: No Dysuria, No Frequency, No Incontinence, No Hematuria, No Retention Musculoskeletal: No: other, neck pain, shoulder pain, arm pain, back pain, hand pain, leg pain, foot pain Neurological: No: Weakness, Numbness, Incoordination, Change in speech, Confusion, Seizures, Other Objective Exam Vital Signs Date Time Temp Pulse Resp B/P (MAP) Pulse Ox O2 Delivery O2 Flow Rate FiO2 02/08/17 08:00 98.7 70 18 136/84 98 Room Air 02/08/17 00:00 99.2 73 16 134/78 96 Room Air 02/07/17 20:55 100.1 79 20 146/77 97 Room Air 02/07/17 16:56 98.7 76 20 133/75 98 Room Air 02/07/17 12:30 98.2 77 20 146/79 97 Room Air Capillary Refill : Less Than 3 Seconds General Appearance: Anxious HEENT: Normal ENT Inspection Neck: Normal Inspection Respiratory: Lungs Clear Gastrointestinal: non tender, soft Neurologic/Psychiatric: Alert, Oriented x3 Skin: Warm/Dry Results Lab Laboratory Tests 02/08/17 05:25: White Blood Count 17.5H, Red Blood Count 3.35L, Hemoglobin 11.1L, Hematocrit 36L , Mean Corpuscular Volume 106H, Mean Corpuscular Hemoglobin 33, Mean Corpuscular Hemoglobin Concent 31L, Red Cell Distribution Width 17.7H, Platelet Count 419H, Mean Platelet Volume 12.0H, Neutrophils (%) (Auto) 84H, Lymphocytes (%) (Auto) 4L, Monocytes (%) (Auto) 12, Eosinophils (%) (Auto) 0, Basophils (%) (Auto) 0, Neutrophils # (Auto) 14.7H, Lymphocytes # (Auto) 0.7L, Monocytes # ( Auto) 2.1H, Eosinophils # (Auto) 0.0, Basophils # (Auto) 0.0, Sodium Level 139, Potassium Level 3.9, Chloride Level 109H, Carbon Dioxide Level 21, Anion Gap 9, Blood Urea Nitrogen 26H, Creatinine 1.24, Estimat Glomerular Filtration Rate 57 , BUN/Creatinine Ratio 21, Glucose Level 149H, Calcium Level 8.8, Total Bilirubin 1.3H, Aspartate Amino Transf (AST/SGOT) 12, Alanine Aminotransferase ( ALT/SGPT) 11, Alkaline Phosphatase 65, Total Protein 6.1L, Albumin 2.9L, Smear Scan YES 02/08/17 10:09: Troponin I < 0.30 Microbiology 02/06/17 Blood Culture - Preliminary, Resulted No growth Assessment/Plan Assessment/Plan Assess & Plan/Chief Complaint Sigmoid diverticulitis. Will manage with IV antiobiotics & observe More diverticulitis. Symptomatic management and continue IV antibiotics. Clinical Quality Measures DVT/VTE Risk/Contraindication: Risk Factor Score Per Nursin RFS Level Per Nursing on Admit: 3=High MONICA TAY MD Feb 08, 2017 11:49
--- NOTE | 2017-02-08 11:53 | Progress Note (SOAP) ---
Subjective Subjective/Events-last exam Tmax 100.1. Is passing gas but still has a lot of abdominal pain and vomiting. At time of my exam this morning he reports recurrence of his left chest pain and is clutching his left chest. Review of Systems Date Seen by Provider: Feb 08, 2017 Time Seen by Provider: 09:50 Objective Exam Last Set of Vital Signs Vital Signs Date Time Temp Pulse Resp B/P (MAP) Pulse Ox O2 Delivery O2 Flow Rate FiO2 02/08/17 08:00 98.7 70 18 136/84 98 Room Air Capillary Refill : Less Than 3 Seconds I&O Intake and Output 02/09/17 00:00 Intake Total 1400 ml Output Total 450 ml Balance 950 ml Intake Oral 0 ml IV Total 1400 ml Output Urine Total 450 ml Emesis 0 ml General: Alert, Mild Distress Lungs: Clear to Auscultation, Normal Air Movement Heart: Regular Rate, No Murmurs Abdomen: Normal Bowel Sounds, Other (mildly distended, mild to moderate tenderness) Neuro: Normal Speech Psych/Mental Status: Mood NL Results/Procedures Lab Laboratory Tests 02/08/17 05:25: White Blood Count 17.5H, Red Blood Count 3.35L, Hemoglobin 11.1L, Hematocrit 36L , Mean Corpuscular Volume 106H, Mean Corpuscular Hemoglobin 33, Mean Corpuscular Hemoglobin Concent 31L, Red Cell Distribution Width 17.7H, Platelet Count 419H, Mean Platelet Volume 12.0H, Neutrophils (%) (Auto) 84H, Lymphocytes (%) (Auto) 4L, Monocytes (%) (Auto) 12, Eosinophils (%) (Auto) 0, Basophils (%) (Auto) 0, Neutrophils # (Auto) 14.7H, Lymphocytes # (Auto) 0.7L, Monocytes # ( Auto) 2.1H, Eosinophils # (Auto) 0.0, Basophils # (Auto) 0.0, Sodium Level 139, Potassium Level 3.9, Chloride Level 109H, Carbon Dioxide Level 21, Anion Gap 9, Blood Urea Nitrogen 26H, Creatinine 1.24, Estimat Glomerular Filtration Rate 57 , BUN/Creatinine Ratio 21, Glucose Level 149H, Calcium Level 8.8, Total Bilirubin 1.3H, Aspartate Amino Transf (AST/SGOT) 12, Alanine Aminotransferase ( ALT/SGPT) 11, Alkaline Phosphatase 65, Total Protein 6.1L, Albumin 2.9L, Smear Scan YES 9/21/17 10:09: Troponin I < 0.30 Microbiology 02/06/17 Blood Culture - Preliminary, Resulted No growth Radiology CT abdomen/pelvis 02/06: "IMPRESSION: 1. The findings are compatible with likely sigmoid colon diverticulitis versus focal colitis. Fluid-filled mildly dilated loops of bowel are present, likely a reactive ileus secondary to these findings. The possibility of enteritis or less likely obstruction is not excluded. 2. Multiple renal nodules including complex cysts and hyperdense nodules are present. Correlation with a postcontrast enhanced or renal specific imaging would be recommended for followup on a nonemergent basis. Neoplasm should not be excluded at this time. 3. 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 4. A preliminary report was provided by [facility]. Assessment/Plan Assessment/Plan Admission Dx Diverticulitis with reactive ileus Chronic macrocytic anemia Acute on chronic renal insufficiency Chronic bilirubin elevation History of thrombocythemia History of chronic systolic heart failure, stable Plan Diverticulitis with reactive ileus- with significant leukocytosis. supportive care with anti-emetics, IVF. Cipro/flagyl. Monitor status closely given report of significant time since flatus and frequent vomiting, may need NG for decompression 02/08- improving slightly with decreasing WBC and now passing flatus, continue antibiotics and supportive care Chronic macrocytic anemia due to vitamin B12 deficiency- on monthly B12 injections per Hematology, stable Acute on chronic renal insufficiency- appears slightly above baseline since May, chart review reveals that at 12/2016 Hematology visit plan was for referral to Nephrology; appears hypovolemic due to vomiting and poor intake, IVF and hold furosemide -Also note of renal cysts on CT scan which were present last year, may need further imaging evaluation non-emergently Chronic bilirubin elevation- unclear etiology, work-up per Hematology with no dilated bile ducts, plan for monitoring History of thrombocythemia- previously on hydroxyurea which is on home med list , but last Hematology note states that was discontinued and changed to Anagrelide due to worsening anemia. Anagrelide changed to 0.5 mg BID at last Hematology visit 12/2016 with goal of platelets less than 400 and hemoglobin over 10. Holding anagrelide for now due to nausea. History of chronic compensated systolic heart failure, stable- continue home metoprolol and aspirin, hold lisinopril d/t renal function and furosemide due to hypovolemia 02/08- recurrence of chest pain, EKG done with no ST elevation, troponin pending , will consult Cardiology as it appears from his records last visit/evaluation was in 2014 DVT ppx- enoxaparin Diagnosis/Problems: Clinical Quality Measures DVT/VTE Risk/Contraindication: Risk Factor Score Per Nursin RFS Level Per Nursing on Admit: 3=High ANTONY VILLARREAL MD Feb 08, 2017 11:53 am
--- NOTE | 2017-02-08 12:10 | Consultation-Cardiology ---
HPI-Cardiology Cardiology Consultation: Date of Consultation 02/08/17 Date of Admission Attending Physician Alisha San MD Admitting Physician Nirmala,[facility] Consulting Physician Elton MIDDLETON MD HPI: Time Seen by Provider: 12:05 Chief Complaint: Chest pain This is a 71-year-old gentleman who does not have diabetes or active smoking. He presented with abdominal pain 48 hours ago and was found to have diverticulitis. He is being treated with IV antibiotics and fluids. His condition has been improving. This morning he complained of mild substernal chest pain with no radiation. The chest pain lasted for 30 minutes. Intensity was 2/10. He's had these pains previously as well. He had an angiogram done previously which showed mild coronary artery disease in 08/2014. Normal LV function. Review of Systems-Cardiology Review of Systems Constitutional: No As described under HPI, No no symptoms reported, No chills, No fever, No lightheadedness, No malaise, No tiredness, No weight loss, No weight gain, No other Ears/Nose/Throat: No As described under HPI, No no symptoms reported, No chronic hearing loss, No epistaxis, No ear discharge, No ear pain, No loose teeth, No mouth pain, No mouth swelling, No nasal drainage, No nose pain, No recent hearing loss, No throat pain, No throat swelling, No ulcerations, No other Respiratory: No no symptoms reported, No As described under HPI, No cough, No orthopnea, No shortness of breath, No SOB with excertion, No SOB at rest, No stridor, No wheezing, No other Cardiovascular: chest pain Gastrointestinal: abdominal pain Genitourinary: No no symptoms reported, No As described under HPI, No burning, No dysuria, No discharge, No frequency, No flank pain, No hematuria, No incontinence, No pain, No urgency, No other, No urine frequency changes, No urine coloration changes Musculoskeletal: No no symptoms reported, No As describe under HPI, No back pain, No gout, No joint pain, No joint swelling, No muscle pain, No muscle stiffness, No neck pain, No other Skin: No no symptoms reported, No As described under HPI, No change in color, No change in hair/nails, No dryness, No lesions, No lumps, No rash, No other, No skin related problems, No ulcerations, No rash on exposed areas, No ulcerations on exposed areas Psychiatric/Neurological: No no symptoms reported, No As described under HPI, No anxiety, No depression, No emotional problems, No headache, No numbness, No pre-existing deficit, No seizure, No tingling, No tremors, No weakness, No other , No focal weakness, No syncope Hematologic: No no symptoms reported, No As described under HPI, No anemia, No blood clots, No easy bleeding, No easy bruising, No swollen glands, No other, No bleeding abnormalities AGV-[place]-Brvwdw Hx Patient Social History Alcohol Use: Denies Use Recreational Drug Use: No Smoking Status: Never a Smoker 2nd Hand Smoke Exposure: No Recent Foreign Travel: No Recent Infectious Disease Expo: No Hospitalization with Isolation: Denies Physical Abuse Screen: No Sexual Abuse: No Immunizations Up To Date Tetanus Booster (TDap): Unknown Past Medical History PMH As described under Assessment. Allergies and Home Medications Allergies Coded Allergies: No Known Drug Allergies (Verified , 07/21/09) Home Medications Anagrelide HCl 0.5 Mg Capsule, 0.5 MG PO BID, (Reported) Aspirin 81 Mg Tablet.dr, 81 MG PO DAILY, (Reported) Folic Acid 1 Mg Tablet, 1 MG PO DAILY, (Reported) Furosemide 20 Mg Tablet, 20 MG PO DAILY, (Reported) Hydroxyurea 500 Mg Capsule, 500 MG PO DAILY, (Reported) LAST FILLED #90 09-08-16 Iron Polysaccharide Complex 150 Mg Capsule, 150 MG PO BID, (Reported) Lisinopril 10 Mg Tablet, 10 MG PO DAILY, (Reported) LAST FILLED #30 12-19-16 Metoprolol Succinate 25 Mg Tab.er.24h, 25 MG PO DAILY, (Reported) Ondansetron 4 Mg Tab.rapdis, 4 MG PO Q6H PRN for NAUSEA/VOMITING-1ST LINE, ( Reported) Pantoprazole Sodium 40 Mg Tablet.dr, 40 MG PO DAILY, (Reported) Potassium Chloride 10 Meq Tablet.er, 10 MEQ PO DAILY, (Reported) Physical Exam-Cardiology Physical Exam Vital Signs/I&O Vital Sign - Last 12Hours 02/08/17 08:00 Temp 98.7 Pulse 70 Resp 18 B/P (MAP) 136/84 Pulse Ox 98 O2 Delivery Room Air Capillary Refill : Less Than 3 Seconds Constitutional: No appears stated age, No AAO x 3, No apparent distress, No PERRL, No well-developed, No well-nourished, No other HEENT: No PERRL, No normal ENT inspection, No TMs normal, No pharynx normal, No scleral icterus (R), No scleral icterus (L), No pale conjunctivae (R), No pale conjunctivae (L), No photophobia, No TM abnormal (R), No TM abnormal (L), No pharyngeal erythema, No tonsillar exudate, No other, No discharge, No EOMI, No hearing is well preserved, No hard of hearing, No oral hygience is good, No ulceration, No xanthelasmas are seen Neck: No non-tender, No full range of motion, No supple, No normal inspection, No carotid bruit, No limited range of motion, No lymphadenopathy (R), No lymphadenopathy (L), No tender lateral, No tender midline, No thyromegaly, No other, No carotid pulses are 2 + bilaterally, No with good upstrokes Respiratory: No accessory muscle use, No respiratory distress, No chest tender , No chest expansion is symmetric, No chest is bilaterally symmetric, No lungs clear to percussion, No lungs clear to auscultation, No crackles, No rhonchi, No rales, No stridor, No wheezing, No pleural rub, No other Cardiovascular: No regular rate-rhythm, No irregularly irregular, No extra beats, No parasternal heave is noted, No JVD, No edema, No bradycardia, No tachycardia, No point of maximal impulse, No cardiac thrills are palpable, No S1 and S2, No gallop/S3, No gallop/S4, No diastolic murmur, No systolic murmur, No friction rub, No click, No other Gastrointestinal: No tender, No soft, No round, No distended, No pulsatile mass , No organomegaly, No guarding, No rebound, No tenderness, No hernia, No mass, No audible bowel sounds, No abnormal bowel sounds, No abdominal bruits, No spleenomegaly, No other Rectal: deferred Extremities: No normal range of motion, No non-tender, No normal inspection, No pedal edema, No calf tenderness, No normal capillary refill, No pelvis stable , No calf tenderness, No inflammation, No pedal edema, No slow capillary refill , No swelling, No other, No abrasion, No clubbing, No cyanosis, No ecchymosis, No laceration, No no lower extremity edema bilateral, No significant edema, No tenderness, No wound Neurologic/Psychiatric: No product manager financial services II-XII nml as tested, No no motor/sensory deficits, No alert, No normal mood/affect, No oriented x 3, No abnormal cerebellar tests, No abnormal product manager financial services II-XII, No abnormal gait, No aphasia, No EOM palsy, No facial droop, No motor weakness, No sensory deficit, No depressed affect, No disoriented x 3, No other, No grossly intact, No power is 5/5 both on sides Skin: No normal color, No warm/dry, No cyanosis, No cool, No diaphoresis, No damp, No ecchymosis, No jaundice, No mottled, No pallor, No rash, No tattoos/ piercings, No ulcerations, No rash on exposed areas, No ulcerations on exposed areas, No other Data Review Labs Laboratory Tests 02/08/17 05:25: White Blood Count 17.5H, Red Blood Count 3.35L, Hemoglobin 11.1L, Hematocrit 36L , Mean Corpuscular Volume 106H, Mean Corpuscular Hemoglobin 33, Mean Corpuscular Hemoglobin Concent 31L, Red Cell Distribution Width 17.7H, Platelet Count 419H, Mean Platelet Volume 12.0H, Neutrophils (%) (Auto) 84H, Lymphocytes (%) (Auto) 4L, Monocytes (%) (Auto) 12, Eosinophils (%) (Auto) 0, Basophils (%) (Auto) 0, Neutrophils # (Auto) 14.7H, Lymphocytes # (Auto) 0.7L, Monocytes # ( Auto) 2.1H, Eosinophils # (Auto) 0.0, Basophils # (Auto) 0.0, Sodium Level 139, Potassium Level 3.9, Chloride Level 109H, Carbon Dioxide Level 21, Anion Gap 9, Blood Urea Nitrogen 26H, Creatinine 1.24, Estimat Glomerular Filtration Rate 57 , BUN/Creatinine Ratio 21, Glucose Level 149H, Calcium Level 8.8, Total Bilirubin 1.3H, Aspartate Amino Transf (AST/SGOT) 12, Alanine Aminotransferase ( ALT/SGPT) 11, Alkaline Phosphatase 65, Total Protein 6.1L, Albumin 2.9L, Smear Scan YES 02/08/17 10:09: Troponin I < 0.30 Microbiology 02/06/17 Blood Culture - Preliminary, Resulted No growth ECG Impression ECG Initial ECG Rhythm: Normal Sinus Comment Sinus rhythm with inferior T-wave inversions. A/P-Cardiology Assessment/Admission Diagnosis Acute diverticulitis, Chest pain, Hypertension Plan This is 71-year-old gentleman who has been admitted with acute diverticulitis. He is receiving conservative treatment with IV antibiotics and fluids. He complained of chest pain this morning. EKG showed sinus rhythm with inferior T- wave abnormality. First set of cardiac enzymes is negative. We'll repeat another set of cardiac enzymes in 4 hours. Echocardiogram is recommended. We will request another cardiac enzyme set in the morning. Likely nuclear stress test tomorrow. Thank you for your consultation. Please call me if you have any questions. Kaela Middleton MD, FACP, FACC, FSCAI, FHRS, CCDS Interventional Cardiology Cardiac Electrophysiology Vascular Medicine and Endovascular Interventions Clinical Quality Measures DVT/VTE Risk/Contraindication: Risk Factor Score Per Nursin RFS Level Per Nursing on Admit: 3=High Elton MIDDLETON MD Feb 08, 2017 12:10 pm
[2017-02-08] MEDS ORDERED: METOCLOPRAMIDE INJ 10 MG/2 ML (REGLAN) IVP SCH (14:00)
[2017-02-08] MEDS: ENOXAPARIN 40 MG/0.4 ML (LOVENOX) SYR SQ SCH (14:25)
[2017-02-08 16:56] VITALS: BP 148/68
[2017-02-09] VITALS: BP 137/75
[2017-02-09] MEDS: CIPROFLOXACIN 400 MG/D5W 200 ML (PRE-MIX) IV SCH (00:53)
[2017-02-09] MEDS: ONDANSETRON 4 MG/2 ML (SDV) Z0FRAN IV PRN (03:18)
[2017-02-09] MEDS: fentaNYL INJECTION 100 MCG/2 ML AMP IV PRN (03:22)
[2017-02-09 03:26] VITALS: BP 115/68
[2017-02-09] MEDS: metroNIDAZOLE 500 MG/100 ML IVPB (PRE-MIX) IV SCH (05:25)
[2017-02-09] MEDS: CATHETER FLUSH 10 ML SYR IV SCH ×2 (05:25→09:16)
[2017-02-09] MEDS: METOCLOPRAMIDE INJ 10 MG/2 ML (REGLAN) IVP PRN (05:26)
[2017-02-09 06:45] LABS: RED BLOOD COUNT 3.24 10^6/uL (4.35-5.85); RED CELL DISTRIBUTION WIDTH 17.6 % (10.0-14.5); WHITE BLOOD COUNT 14.8 10^3/uL (4.3-11.0)
[2017-02-09] MEDS: D5 1/2 NS W/KCL 20 MEQ/L 1,000 ML IV SCH (06:51)
[2017-02-09 07:06] LABS: ALANINE AMINOTRANSFERASE 9 U/L (0-55); ALBUMIN 2.7 GM/DL (3.2-4.5); ANION GAP 8 MMOL/L (5-14); ASPARTATE AMINO TRANSFERASE 11 U/L (5-34); BILIRUBIN,TOTAL 1.1 MG/DL (0.1-1.0); BLOOD UREA NITROGEN 15 MG/DL (7-18); BUN/CREATININE RATIO 14; CALCIUM 8.6 MG/DL (8.5-10.1); CARBON DIOXIDE 22 MMOL/L (21-32); CHLORIDE 109 MMOL/L (98-107); CREATININE SERUM 1.11 MG/DL (0.60-1.30); GFR ESTIMATED > 60; GLUCOSE 122 MG/DL (70-105); POTASSIUM 3.9 MMOL/L (3.6-5.0); SODIUM 139 MMOL/L (135-145); TOTAL PROTEIN 5.8 GM/DL (6.4-8.2)
[2017-02-09 08:00] VITALS: BP 159/71
[2017-02-09] MEDS ORDERED: REGADENOSON 0.4 MG/5 ML SYR (LEXISCAN) IV ONE ×2 (08:59→09:15)
[2017-02-09 09:12] VITALS: BP 140/79
--- NOTE | 2017-02-09 09:41 | Cardiology Progress Note ---
Cardiology SOAP Progress Note Subjective: mild chest discomfort overnight. Objective: I&O/Vital Signs Vital Sign - Last 12Hours 02/09/17 02/09/17 02/09/17 02/09/17 00:00 00:58 03:26 08:00 Temp 99.3 98.7 98.0 Pulse 70 70 72 76 Resp 17 18 24 B/P (MAP) 137/75 115/68 159/71 Pulse Ox 96 93 98 O2 Delivery Room Air Room Air Room Air 02/09/17 09:12 Pulse 78 Resp 16 B/P (MAP) 140/79 Pulse Ox 98 O2 Delivery Room Air Weight (Pounds): 137 Weight (Ounces): 6.0 Weight (Calculated Kilograms): [id number] Constitutional: No appears stated age, No AAO x 3, No apparent distress, No PERRL, No well-developed, No well-nourished, No other Respiratory: No accessory muscle use, No respiratory distress, No chest tender , No chest expansion is symmetric, No chest is bilaterally symmetric, No lungs clear to percussion, No lungs clear to auscultation, No crackles, No rhonchi, No rales, No stridor, No wheezing, No pleural rub, No other Cardiovascular: No regular rate-rhythm, No irregularly irregular, No extra beats, No parasternal heave is noted, No JVD, No edema, No bradycardia, No tachycardia, No point of maximal impulse, No cardiac thrills are palpable, No S1 and S2, No gallop/S3, No gallop/S4, No diastolic murmur, No systolic murmur, No friction rub, No click, No other Gastrointestional: No tender, No soft, No round, No distended, No pulsatile mass, No organomegaly, No guarding, No rebound, No tenderness, No hernia, No mass, No audible bowel sounds, No abnormal bowel sounds, No abdominal bruits, No spleenomegaly, No other Extremities: No normal range of motion, No non-tender, No normal inspection, No pedal edema, No calf tenderness, No normal capillary refill, No pelvis stable , No calf tenderness, No inflammation, No pedal edema, No slow capillary refill , No swelling, No other, No abrasion, No clubbing, No cyanosis, No ecchymosis, No laceration, No no lower extremity edema bilateral, No significant edema, No tenderness, No wound Neurologic/Psychiatric: No pelts skinner II-XII nml as tested, No no motor/sensory deficits, No alert, No normal mood/affect, No oriented x 3, No abnormal cerebellar tests, No abnormal pelts skinner II-XII, No abnormal gait, No aphasia, No EOM palsy, No facial droop, No motor weakness, No sensory deficit, No depressed affect, No disoriented x 3, No other, No grossly intact, No power is 5/5 both on sides Skin: No normal color, No warm/dry, No cyanosis, No cool, No diaphoresis, No damp, No ecchymosis, No jaundice, No mottled, No pallor, No rash, No tattoos/ piercings, No ulcerations, No rash on exposed areas, No ulcerations on exposed areas, No other Results/Procedures: Labs Laboratory Tests 02/08/17 10:09: Troponin I < 0.30 02/08/17 14:30: Troponin I < 0.30 02/09/17 05:37: White Blood Count 14.8H, Red Blood Count 3.24L, Hemoglobin 10.9L, Hematocrit 34L , Mean Corpuscular Volume 106H, Mean Corpuscular Hemoglobin 34, Mean Corpuscular Hemoglobin Concent 32, Red Cell Distribution Width 17.6H, Platelet Count 452H, Mean Platelet Volume 12.0H, Sodium Level 139, Potassium Level 3.9, Chloride Level 109H, Carbon Dioxide Level 22, Anion Gap 8, Blood Urea Nitrogen 15, Creatinine 1.11, Estimat Glomerular Filtration Rate > 60, BUN/Creatinine Ratio 14, Glucose Level 122H, Calcium Level 8.6, Total Bilirubin 1.1H, Aspartate Amino Transf (AST/SGOT) 11, Alanine Aminotransferase (ALT/SGPT) 9, Alkaline Phosphatase 61, Total Protein 5.8L, Albumin 2.7L Microbiology 02/06/17 Blood Culture - Preliminary, Resulted No growth A/P: Assessment/Dx: Acute diverticulitis, Chest pain, Hypertension Plan: This is 71-year-old gentleman who has been admitted with acute diverticulitis. He is receiving conservative treatment with IV antibiotics and fluids. Chest pain yesterday: EKG showed sinus rhythm with inferior T-wave abnormality. Acute coronary syndrome ruled out with 2 sets of negative serial cardiac enzymes. Echocardiogram shows normal ejection fraction with mild inferior hypokinesis. Nuclear stress test result pending. Thank you for your consultation. Please call me if you have any questions. Kaela Middleton MD, FACP, FACC, FSCAI, FHRS, CCDS Interventional Cardiology Cardiac Electrophysiology Vascular Medicine and Endovascular Interventions Elton MIDDLETON MD Feb 09, 2017 9:41 am
[2017-02-09] MEDS: ASPIRIN E.C. 81 MG (ECOTRIN) TAB PO SCH (10:03)
[2017-02-09] MEDS: PANTOPRAZOLE 40 MG/10 ML (PROTONIX) VIAL IV SCH (10:05)
--- NOTE | 2017-02-09 10:56 | Discharge Summary ---
Diagnosis/Chief Complaint Date of Admission Feb 06, 2017 at 11:20 pm Date of Discharge Feb 09, 2017 at 10:51 am Admission Diagnosis Admission Diagnosis Diverticulitis with reactive ileus Chronic macrocytic anemia Acute on chronic renal insufficiency Chronic bilirubin elevation History of thrombocythemia History of chronic systolic heart failure, stable Discharge Diagnosis Diverticulitis with reactive ileus- with significant leukocytosis. supportive care with anti-emetics, IVF. Cipro/flagyl. Monitor status closely given report of significant time since flatus and frequent vomiting, may need NG for decompression 02/08- improving slightly with decreasing WBC and now passing flatus, continue antibiotics and supportive care 02/09- passed stool since yesterday and feeling slightly improved, but still vomiting frequently, not yet able to tolerate oral antibiotics, transferred to swing bed status for further IV antibiotics Chronic macrocytic anemia due to vitamin B12 deficiency- on monthly B12 injections per Hematology, stable Acute on chronic renal insufficiency- appears slightly above baseline since May, chart review reveals that at 12/2016 Hematology visit plan was for referral to Nephrology; appears hypovolemic due to vomiting and poor intake, IVF and hold furosemide -Also note of renal cysts on CT scan which were present last year, may need further imaging evaluation non-emergently Chronic bilirubin elevation- unclear etiology, work-up per Hematology with no dilated bile ducts, plan for monitoring History of thrombocythemia- previously on hydroxyurea which is on home med list , but last Hematology note states that was discontinued and changed to Anagrelide due to worsening anemia. Anagrelide changed to 0.5 mg BID at last Hematology visit 12/2016 with goal of platelets less than 400 and hemoglobin over 10. Holding anagrelide for now due to nausea. History of chronic compensated systolic heart failure, stable- continue home metoprolol and aspirin, hold lisinopril d/t renal function and furosemide due to hypovolemia 02/08- recurrence of chest pain, EKG done with no ST elevation, troponin pending , will consult Cardiology as it appears from his records last visit/evaluation was in 02/09- seen by Cardiology, echocardiogram with normal EF, some inferior hypokinesis, stress test results pending. Chief Complaint/HPI Chief Complaint/HPI Patient states he started having stomach problems about 3 days ago with nausea, vomiting and abdominal pain and just not feeling well. He denies diarrhea, in fact states he has had a hard time having a bowel movement and states his last BM and flatus that he recalls was about 2 days ago. He has not had fever that he knows of. He does have fairly significant difficulty in reporting his medical conditions and medications, which is typical for him. Discharge Summary-Simple/Stand Consultations Discharge Physical Examination Allergies: Coded Allergies: No Known Drug Allergies (Verified , 07/21/09) Vitals & I&Os Vital Sign - Last 12Hours Date Time Temp Pulse Resp B/P (MAP) Pulse Ox O2 Delivery O2 Flow Rate FiO2 02/09/17 09:12 78 16 140/79 98 Room Air 02/09/17 08:00 98.0 General Appearance: Alert, No Acute Distress Respiratory: Clear to Auscultation, Normal Air Movement Cardiovascular: Regular Rate, No Murmurs Abdominal: Other (hypoactive bowel sounds, distended, moderate diffuse tenderness) Hospital Course See final discharge diagnosis. Labs Laboratory Tests Test 02/08/17 05:25 02/08/17 10:09 02/08/17 14:30 02/09/17 05:37 Range/Units White Blood Count 17.5 H 14.8 H 4.3-11.0 10^3/uL Red Blood Count 3.35 L 3.24 L 4.35-5.85 10^6/uL Hemoglobin 11.1 L 10.9 L 13.3-17.7 G/DL Hematocrit 36 L 34 L 40-54 % Mean Corpuscular Volume 106 H 106 H 80-99 FL Mean Corpuscular Hemoglobin 33 34 25-34 PG Mean Corpuscular Hemoglobin Concent 31 L 32 32-36 G/DL Red Cell Distribution Width 17.7 H 17.6 H 10.0-14.5 % Platelet Count 419 H 452 H 130-400 10^3/uL Mean Platelet Volume 12.0 H 12.0 H 7.4-10.4 FL Neutrophils (%) (Auto) 84 H 42-75 % Lymphocytes (%) (Auto) 4 L 12-44 % Monocytes (%) (Auto) 12 0-12 % Eosinophils (%) (Auto) 0 0-10 % Basophils (%) (Auto) 0 0-10 % Neutrophils # (Auto) 14.7 H 1.8-7.8 X 10^3 Lymphocytes # (Auto) 0.7 L 1.0-4.0 X 10^3 Monocytes # (Auto) 2.1 H 0.0-1.0 X 10^3 Eosinophils # (Auto) 0.0 0.0-0.3 10^3/uL Basophils # (Auto) 0.0 0.0-0.1 10^3/uL Sodium Level 139 139 135-145 MMOL/L Potassium Level 3.9 3.9 3.6-5.0 MMOL/L Chloride Level 109 H 109 H 98-107 MMOL/L Carbon Dioxide Level 21 22 21-32 MMOL/L Anion Gap 9 8 5-14 MMOL/L Blood Urea Nitrogen 26 H 15 7-18 MG/DL Creatinine 1.24 1.11 0.60-1.30 MG/DL Estimat Glomerular Filtration Rate 57 > 60 BUN/Creatinine Ratio 21 14 Glucose Level 149 H 122 H 70-105 MG/DL Calcium Level 8.8 8.6 8.5-10.1 MG/DL Total Bilirubin 1.3 H 1.1 H 0.1-1.0 MG/DL Aspartate Amino Transf (AST/SGOT) 12 11 5-34 U/L Alanine Aminotransferase (ALT/SGPT) 11 9 0-55 U/L Alkaline Phosphatase 65 61 40-136 U/L Total Protein 6.1 L 5.8 L 6.4-8.2 GM/DL Albumin 2.9 L 2.7 L 3.2-4.5 GM/DL Smear Scan YES Troponin I < 0.30 < 0.30 <0.30 NG/ML Radiology Reviewed CT abdomen/pelvis 02/06: "IMPRESSION: 1. The findings are compatible with likely sigmoid colon diverticulitis versus focal colitis. Fluid-filled mildly dilated loops of bowel are present, likely a reactive ileus secondary to these findings. The possibility of enteritis or less likely obstruction is not excluded. 2. Multiple renal nodules including complex cysts and hyperdense nodules are present. Correlation with a postcontrast enhanced or renal specific imaging would be recommended for followup on a nonemergent basis. Neoplasm should not be excluded at this time. 3. 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 4. A preliminary report was provided by [facility]. Discharge Instructions to patient/family Please see electronic discharge instructions given to patient. Discharge Medications Reviewed and agree with Discharge Medication list on patient's Discharge Instruction sheet Clinical Quality Measures DVT/VTE Risk/Contraindication: Risk Factor Score Per Nursin RFS Level Per Nursing on Admit: 3=High Copy Copies To 1: ANDRES ONTIVEROS MD, BETHANY N MD Feb 09, 2017 10:56
--- NOTE | 2017-02-12 07:27 | STRESS TEST ---
DATE OF SERVICE: 02/09/2017 REPORT TITLE: Pharmacological Nuclear Stress Test Report PRIMARY CARE PHYSICIAN: Dr. Sergio Middleton ATTENDING PHYSICIAN: Dr. Alisha San DIAGNOSIS: Chest pain, EKG changes. PROCEDURE DETAILS: This patient was brought to the stress lab after informed consent was taken. A stress test was performed according to the Lexiscan protocol. A 0.4 mg of Lexiscan was given IV. Low intensity exercise was performed. Baseline EKG shows sinus rhythm with heart rate of 78 BPM. Maximum heart rate was 103 BPM. Blood pressure was 150/69 mmHg. There was no chest pain, EKG changes, arrhythmias noted. A 10.13 mCi of Myoview were given for rest imaging and 31.0 mCi of Myoview were given for stress imaging. TID 1.07. EF 49%. There is a predominantly fixed apical defect with mild reversibility. Normal wall motion. SSS4, SRS1, SDS3. IMPRESSION AND CONCLUSION: 1. Pharmacological stress test negative for ischemia. 2. There is a predominantly fixed apical defect with mild reversibility. Clinical correlation is recommended. 3. Low normal LV function is noted. Job ID: [id number] DocumentID: [id number] Dictated Date: 02/09/2017 13:01:20 Clinical Pharmacy Technician Date: 02/09/2017 15:35:42 Dictated By: SERGIO MIDDLETON MD [facility]
[2017-02-12] MEDS ORDERED: METR500T PO ×2 (11:17)
[2017-02-12] MEDS ORDERED: CIPR500T4 PO ×2 (11:17)
[2017-04-06] MEDS ORDERED: DOCU-143 PO (11:43)
[2017-04-06] MEDS ORDERED: AMOX-358 PO (11:43)
[2017-04-06] MEDS ORDERED: FLUC100T PO (11:43)
[2017-04-06] MEDS ORDERED: APIX5TAB PO (11:43)
== END 2017-02-09 10:51 | disposition swing bed (61) | DRG 392 ==
LOC: EDUNIT# 21:22 → ER 21:23 → 4TH 23:20
PROVIDERS: ADMIT Family Medicine; ATTEND Family Medicine
DX: K57.32 Diverticulitis of large intestine without perforation or abscess without bleeding (principal); K56.7 Ileus, unspecified; D53.9 Nutritional anemia, unspecified; E53.8 Deficiency of other specified B group vitamins; N28.9 Disorder of kidney and ureter, unspecified; I12.9 Hypertensive chronic kidney disease with stage 1 through stage 4 chronic kidney disease, or unspecified chronic kidney disease; N18.9 Chronic kidney disease, unspecified; I50.22 Chronic systolic (congestive) heart failure; I25.10 Atherosclerotic heart disease of native coronary artery without angina pectoris; I73.9 Peripheral vascular disease, unspecified; K21.9 Gastro-esophageal reflux disease without esophagitis; R07.2 Precordial pain
CPT/HCPCS: 36415; 71010; 74176; 78452; 80053; 81000; 82150; 83605; 83690; 83735; 84484; 85007; 85025; 85027; 87040; 88305; 93005; 93017; 93306; 96365; 96375

== ENCOUNTER 2017-02-09 10:26 | Inpatient (IN) | payer MEDICARE, MEDICAID ==
[~2017-02-09] VITALS: Ht 170.2 cm; Wt 62.3 kg
[~2017-02-09 10:26] MED LIST changes: +ASPI-983 PO; +METO-270 PO; -METO-387 PO; +ONDA4TAB8 PO
[2017-02-09] MEDS ORDERED: ENOXAPARIN 40 MG/0.4 ML (LOVENOX) SYR SQ SCH (11:02)
[2017-02-09] MEDS ORDERED: CATHETER FLUSH 10 ML SYR IV PRN (11:02)
[2017-02-09] MEDS ORDERED: CIPROFLOXACIN 400 MG/D5W 200 ML (PRE-MIX) IV SCH (11:02)
[2017-02-09] MEDS: ONDANSETRON 4 MG/2 ML (SDV) Z0FRAN IV PRN ×2 (11:17→17:28)
[2017-02-09] MEDS: metroNIDAZOLE 500 MG/100 ML IVPB (PRE-MIX) IV SCH ×3 (12:01→23:01)
[2017-02-09] MEDS: D5 1/2 NS W/KCL 20 MEQ/L 1,000 ML IV SCH ×3 (12:26→20:04)
--- NOTE | 2017-02-09 13:05 | Progress Note (SOAP) ---
Subjective Date Seen by Provider: Feb 09, 2017 Time Seen by Provider: 13:04 Subjective/Events-last exam nausea improved. Left lower quadrant abdominal pain slightly better. Review of Systems General: No Chills, No Night Sweats, No Fatigue, No Malaise HEENT: No Head Aches, No Eye Pain, No Ear Pain, No Dysphasia, No Sinus Congestion, No Post Nasal Drip, No Sore Throat Pulmonary: No Dyspnea, No Cough, No Pleuritic Chest Pain Cardiovascular: No: Chest Pain, Palpitations, Orthopnea, Paroxysmal Noc. Dyspnea, Edema, Lt Headedness Gastrointestinal: Abdominal Pain Genitourinary: No Dysuria, No Frequency, No Incontinence, No Hematuria, No Retention Neurological: No: Weakness, Numbness, Incoordination, Change in speech, Confusion, Seizures, Other Objective Exam Capillary Refill : General Appearance: No Apparent Distress HEENT: Normal ENT Inspection Neck: Normal Inspection Respiratory: Lungs Clear Gastrointestinal: non tender, soft Neurologic/Psychiatric: Alert, Oriented x3 Skin: Warm/Dry Assessment/Plan Assessment/Plan Assess & Plan/Chief Complaint resolving sigmoid diverticulitis. We'll continue IV antibiotics. Encouraged to use incentive spirometry to avoid atelectasis and pneumonia. Final Diagnosis sigmoid diverticulitis Clinical Quality Measures DVT/VTE Risk/Contraindication: Risk Factor Score Per Nursin MONICA TAY MD Feb 09, 2017 1:05 pm
[2017-02-09] MEDS: CATHETER FLUSH 10 ML SYR IV SCH ×2 (13:26→21:37)
[2017-02-09] MEDS: CIPROFLOXACIN 400 MG/D5W 200 ML (PRE-MIX) IV SCH (13:26)
[2017-02-09] MEDS: ENOXAPARIN 40 MG/0.4 ML (LOVENOX) SYR SQ SCH (13:33)
--- NOTE | 2017-02-09 14:08 | Physical Therapy Evaluation ---
PT Evaluation-General Medical Diagnosis Admission Date Feb 09, 2017 at 10:54 Medical Diagnosis: diverticulitis with reactive ileus Onset Date: Feb 06, 2017 Therapy Diagnosis Therapy Diagnosis: debility Height/Weight Height (Feet): 5 Height (Inches): 7.00 Weight (Pounds): 137 Weight (Ounces): 6.0 Precautions Precautions/Isolations: Standard Precautions Referral Physician: Jaswinder Reason for Referral: Evaluation/Treatment Medical History Pertinent Medical History: CAD, GERD, Heart Failure, HTN, PVD, Renal Insufficiency Current History abdominal pain with N&V Reviewed History: Yes Social History Home: Apartment Current Living Status: Other Family Entry Into Home: Level Entry Prior/Core FIM Prior Level of Function Functional [place] Measure 0=Not Assessed/NA 4=Minimal Assistance 1=Total Assistance 5=Supervision or Setup 2=Maximal Assistance 6=Modified [place] 3=Moderate Assistance 7=Complete [place] Bed Mobility: 7 Transfers (B,C,W/C) (FIM): 7 Gait: 7 Locomotion: 7 PT Evaluation-Current Subjective Patient agrees to PT. Pain Numeric Pain Scale: 5-Moderate Pain Location: Lower Location Body Site: Abdomen Pain Description: Ache, Pressure Objective Patient Orientation: Normal For Age Problem Solving: Good Attachments: IV ROM/Strength ROM Lower Extremities bilateral LE WNL Strenght Lower Extremities 5/5 bilateral LE grossly Integumentary/Posture Integumentary refer to nursing notes Bowel Incontinence: No Bladder Incontinence: No Posture WNL Neuromuscular (Tone, Coordination, Reflexes) grossly intact Sensory Vision: Functional Hearing: Functional Sensation Right Lower Extremit: Intact Sensation Left Lower Extremity: Intact Transfers Functional [place] Measure 0=Not Assessed/NA 4=Minimal Assistance 1=Total Assistance 5=Supervision or Setup 2=Maximal Assistance 6=Modified [place] 3=Moderate Assistance 7=Complete [place] Transfers (B, C, W/C) (FIM): 7 Scootin Rollin Supine to/from Sit: 7 Sit to/from Stand: 7 Sit to Lying (QC): 6 Lying to Sitting/Side of Bed(Q: 6 Sit to Stand (QC): 6 Chair/[id number]-[id number] Xfer(QC): 6 Gait Does the Patient Walk?: Yes Mode of Locomotion: Walk Anticipated Mode of Locomotion: Walk Gait (FIM): 7 Distance (FIM): 3=150 ft Distance: 600' Walk 50 ft with 2 Turns(QC): 6 Walk 150 ft (QC): 6 Gait Level of Assist: 7 Gait Assistive Device: None Comments/Gait Description safe and functional Balance Sitting Static: Normal Sitting Dynamic: Normal Standing Static: Normal Standing Dynamic: Normal Treatment Patient performed bilateral LE exercises 25 reps each AP, LAQ, SLR, QS, HS Assessment/Needs 71 y.o. male, is currently at independent LOF with all gross motor skills safely and does not require skilled PT at this time. Patient is safe to ambulate PRN with staff or independently if not attached to IV. Rehab Potential: Good PT Plan Treatment/Plan Treatment Plan: Discontinue PT, goals met Treatment Plan: Education Treatment Duration: Feb 09, 2017 Frequency: 1 time per week Estimated Hrs Per Day: .5 hour per day Patient and/or Family Agrees t: Yes Discharge Recommendations Therapy D/C Recommendations: Home w/ Family Support Time/GCodes Time In: 1245 Time Out: 1315 Total Billed Treatment Time: 30 Total Billed Treatment 1 visit EVLowC 15 min FA 15 min KAITLYN KAISER PT Feb 09, 2017 14:08
--- NOTE | 2017-02-09 15:15 | Occupational Therapy Eval ---
OT Evaluation-General/PLF Medical Diagnosis Admission Date Feb 09, 2017 at 10:54 Medical Diagnosis: diverticulitis with reactive ileus Onset Date: Feb 06, 2017 Therapy Diagnosis Therapy Diagnosis: Decreased self care skills Height/Weight Height (Feet): 5 Height (Inches): 7.00 Weight (Pounds): 137 Weight (Ounces): 6.0 Precautions Precautions/Isolations: Standard Precautions Referral Physician: Jaswinder Medical History Pertinent Medical History: CAD, GERD, Heart Failure, HTN, PVD, Renal Insufficiency Additional Medical History right hip replacement, anemia Reviewed History: Yes Social History Home: Apartment Current Living Status: Other Family Entry Into Home: Level Entry Pt states son and grandson live with him, but he is often alone while they are at work ADL-Prior Level of Function ADL PLOF Comments Pt reports being independent with basic self care and mobility.Has a cane that he uses as needed. DME/Equipment: Tub/Shower Drive Self: Yes OT Current Status Subjective Pt in bed, agrees to treatment. Pt has no c/o pain during session. Mental Status/Objective Patient Orientation: Person, Place, Situation Attachments: IV Current Glasses/Contacts: Yes Hearing Aids: No Dentures/Partials: No Hand Dominance: Right Upper Extremity ROM Grossly WFL Upper Extremity Coordination Intact Upper Extremity Sensation Intact per pt report Upper Extremity Strength Grossly 4/5 ADL-Treatment ADL-Current Pt supine to sit without assistance. Pt is on liquid diet and states he has no difficulty feeding self or managing containers. Pt doffed socks without assistance, but has difficulty donning socks. Pt states this has been difficult for him since he hasn't been feeling well. Pt completes task with minimal assistance and increased time. Pt combed hair with modified independence. Sit to stand with modified independence. Gait to restroom without assistive device. Pt does not have any LOB, but is unsteady at times and holds onto wall or furniture. Pt demonstrated ability to complete toilet transfer with supervision. Pt states he has taken a shower, but had some assistance from nursing. Pt returned to bed with needs met after session. Functional [place] Measure 0=Not Assessed/NA 4=Minimal Assistance 1=Total Assistance 5=Supervision or Setup 2=Maximal Assistance 6=Modified [place] 3=Moderate Assistance 7=Complete IndependenceIRFPAI Quality Coding Scale 6 Independent with activity with or without an assistive device 5 Patient requires set up or clean up by helper. Patient completes activity by themselves 4 Supervision or touching assist (CGA). [place] provide cues , steadying assist 3 The helper provides less than half the effort to complete the activity 2 The helper provides more than half the effort to complete the activity 1 Dependent. The helper does all the effort to complete an activity 7 Patient refused to complete or attempt activity 9 The patient did not perform the activity before the current illness or injury 88 Not attempted due to Medical conditions or safety concerns Eating (FIM): 7 Eating (QC): 6 Grooming (FIM): 6 Lower Body Dressing (FIM): 4 (socks only) Toilet/Commode Transfer (FIM): 5 Toilet Transfer (QC): 5 Education OT Patient Education: Rehab process Teaching Recipient: Patient Teaching Methods: Discussion Response to Teaching: Verbalize Understanding OT Short Term Goals Short Term Goals 1=Demonstrate adherence to instructed precautions during ADL tasks. 2=Patient will verbalize/demonstrate understanding of assistive devices/ modifications for ADL. 3=Patient will improve strength/tolerance for activity to enable patient to perform ADL's. OT Alf Goals Cnc Operator Machinist Goals Time Frame: Feb 16, 2017 Eating (FIM): 7 Eating (QC): 6 Groomin Oral Hygiene (QC): 6 Bathing(FIM): 6 Upper Body Dressing(FIM): 6 Lower Body Dressing(FIM): 6 Toileting(FIM): 6 Toileting Hygiene (QC): 6 Toilet/Commode Transfer(FIM): 6 Toilet/Commode Transfer (QC): 6 Additional Goals: 1-Demonstrate ADL Tasks, 2-Verbalize Understanding, 3- ImproveStrength/Perri 1=Demonstrate adherence to instructed precautions during ADL tasks. 2=Patient will verbalize/demonstrate understanding of assistive devices/ modifications for ADL. 3=Patient will improve strength/tolerance for activity to enable patient to perform ADL's. OT Education/Plan Problem List/Assessment Assessment: Decreased Activ Tolerance, Dependent Transfers, Impaired Self-Care Skills Pt to benefit from skilled OT intervention for ADL training, transfers, and home safety education to improve level of independence and allow safe return home. Discharge Recommendations Plan/Recommendations: Continue POC Treatment Plan/Plan of Care Treatment,Training & Education: Yes Patient would benefit from OT for education, treatment and training to promote independence in ADL's, mobility, safety and/or upper extremity function for ADL' s. Plan of Care: ADL Retraining, Functional Mobility, UE Funct Exercise/Act Treatment Duration: Feb 16, 2017 Frequency: 5 times per week Estimated Hrs Per Day: .5 hour per day Rehab Potential: Good Time/GCodes Start Time: 14:05 Stop Time: 14:29 Total Time Billed (hr/min): 24 Billed Treatment Time 1 visit, EVL(9minutes), ADL(15minutes) CHERRI BAUER OT Feb 09, 2017 15:15
[2017-02-09 17:31] VITALS: BP 121/71
[2017-02-09] MEDS: METOCLOPRAMIDE INJ 10 MG/2 ML (REGLAN) IVP PRN (20:03)
[2017-02-10] MEDS: CIPROFLOXACIN 400 MG/D5W 200 ML (PRE-MIX) IV SCH ×2 (00:05→12:25)
[2017-02-10] MEDS: ONDANSETRON 4 MG/2 ML (SDV) Z0FRAN IV PRN ×3 (00:14→21:27)
[2017-02-10] MEDS: HYDROcodone/APAP 5 MG/325 MG (LORTAB) TAB PO PRN (00:14)
[2017-02-10] MEDS: D5 1/2 NS W/KCL 20 MEQ/L 1,000 ML IV SCH ×4 (05:02→23:32)
[2017-02-10] MEDS: metroNIDAZOLE 500 MG/100 ML IVPB (PRE-MIX) IV SCH ×4 (05:02→23:32)
[2017-02-10] MEDS: CATHETER FLUSH 10 ML SYR IV SCH ×3 (05:02→19:36)
[2017-02-10 06:00] VITALS: BP 127/66
[2017-02-10 06:51] LABS: MEAN PLATELET VOLUME 12.1 FL (7.4-10.4); RED BLOOD COUNT 3.04 10^6/uL (4.35-5.85); RED CELL DISTRIBUTION WIDTH 17.5 % (10.0-14.5); WHITE BLOOD COUNT 19.5 10^3/uL (4.3-11.0)
[2017-02-10 07:08] LABS: ALANINE AMINOTRANSFERASE 8 U/L (0-55); ALBUMIN 2.6 GM/DL (3.2-4.5); ANION GAP 7 MMOL/L (5-14); ASPARTATE AMINO TRANSFERASE 13 U/L (5-34); BILIRUBIN,TOTAL 0.9 MG/DL (0.1-1.0); BLOOD UREA NITROGEN 9 MG/DL (7-18); BUN/CREATININE RATIO 9; CALCIUM 8.5 MG/DL (8.5-10.1); CARBON DIOXIDE 22 MMOL/L (21-32); CHLORIDE 108 MMOL/L (98-107); CREATININE SERUM 1.02 MG/DL (0.60-1.30); GFR ESTIMATED > 60; GLUCOSE 107 MG/DL (70-105); SODIUM 137 MMOL/L (135-145); TOTAL PROTEIN 5.4 GM/DL (6.4-8.2)
[2017-02-10] MEDS: PANTOPRAZOLE 40 MG/10 ML (PROTONIX) VIAL IV SCH (08:53)
[2017-02-10] MEDS: ASPIRIN E.C. 81 MG (ECOTRIN) TAB PO SCH (08:53)
--- NOTE | 2017-02-10 10:52 | Progress Note (SOAP) ---
Subjective Date Seen by Provider: Feb 10, 2017 Time Seen by Provider: 10:40 Subjective/Events-last exam Patient seen with Dr. Contreras. Patient reports doing well today. No BM or flatus today. Reports nausea with breakfast this AM but no vomiting. Patient sitting in bedside chair. Does report LLQ abdominal tenderness/pain. No sweats/chills. Review of Systems General: No Chills, No Night Sweats Gastrointestinal: Nausea, Abdominal Pain, No: Vomiting Objective Exam Vital Signs Date Time Temp Pulse Resp B/P (MAP) Pulse Ox O2 Delivery O2 Flow Rate FiO2 02/10/17 06:00 97.5 63 18 127/66 95 Room Air 02/09/17 17:31 99.9 71 20 121/71 97 Room Air Capillary Refill : General Appearance: No Apparent Distress, WD/WN HEENT: PERRL/EOMI, TMs Normal, Normal ENT Inspection, Pharynx Normal Neck: Full Range of Motion, Normal Inspection, Non Tender, Supple Respiratory: Chest Non Tender, Lungs Clear, Normal Breath Sounds, No Accessory Muscle Use, No Respiratory Distress Cardiovascular: Regular Rate, Rhythm, No Edema Gastrointestinal: soft, tenderness (LLQ) Extremity: Normal Capillary Refill, Normal Inspection, Normal Range of Motion, Non Tender, No Calf Tenderness, No Pedal Edema Neurologic/Psychiatric: Alert, Oriented x3 Skin: Normal Color, Warm/Dry Results Lab Laboratory Tests 02/10/17 06:29: White Blood Count 19.5H, Red Blood Count 3.04L, Hemoglobin 10.1L, Hematocrit 32L , Mean Corpuscular Volume 106H, Mean Corpuscular Hemoglobin 33, Mean Corpuscular Hemoglobin Concent 31L, Red Cell Distribution Width 17.5H, Platelet Count 529H, Mean Platelet Volume 12.1H, Sodium Level 137, Potassium Level 4.0, Chloride Level 108H, Carbon Dioxide Level 22, Anion Gap 7, Blood Urea Nitrogen 9 , Creatinine 1.02, Estimat Glomerular Filtration Rate > 60, BUN/Creatinine Ratio 9, Glucose Level 107H, Calcium Level 8.5, Total Bilirubin 0.9, Aspartate Amino Transf (AST/SGOT) 13, Alanine Aminotransferase (ALT/SGPT) 8, Alkaline Phosphatase 56, Total Protein 5.4L, Albumin 2.6L Assessment/Plan Assessment/Plan Assess & Plan/Chief Complaint A 71 year old male with Sigmoid diverticulitis. WBC increased to 19, no fevers. Continue IV abx, pain, nausea meds. Clear liquid diet. Will await more bowel function before increasing diet. Clinical Quality Measures DVT/VTE Risk/Contraindication: Risk Factor Score Per Nursin RAIMUNDO BONILLA APRN Feb 10, 2017 10:52
--- NOTE | 2017-02-10 13:43 | Cardiology Progress Note ---
Cardiology SOAP Progress Note Subjective: No further chest pain Objective: I&O/Vital Signs Vital Sign - Last 12Hours 02/10/17 02/10/17 06:00 09:00 Temp 97.5 Pulse 63 Resp 18 B/P (MAP) 127/66 Pulse Ox 95 O2 Delivery Room Air Room Air Weight (Pounds): 137 Weight (Ounces): 6.0 Weight (Calculated Kilograms): 62.983749 Constitutional: No appears stated age, No AAO x 3, No apparent distress, No PERRL, No well-developed, No well-nourished, No other Respiratory: No accessory muscle use, No respiratory distress, No chest tender , No chest expansion is symmetric, No chest is bilaterally symmetric, No lungs clear to percussion, No lungs clear to auscultation, No crackles, No rhonchi, No rales, No stridor, No wheezing, No pleural rub, No other Cardiovascular: No regular rate-rhythm, No irregularly irregular, No extra beats, No parasternal heave is noted, No JVD, No edema, No bradycardia, No tachycardia, No point of maximal impulse, No cardiac thrills are palpable, No S1 and S2, No gallop/S3, No gallop/S4, No diastolic murmur, No systolic murmur, No friction rub, No click, No other Gastrointestional: tender Extremities: No normal range of motion, No non-tender, No normal inspection, No pedal edema, No calf tenderness, No normal capillary refill, No pelvis stable , No calf tenderness, No inflammation, No pedal edema, No slow capillary refill , No swelling, No other, No abrasion, No clubbing, No cyanosis, No ecchymosis, No laceration, No no lower extremity edema bilateral, No significant edema, No tenderness, No wound Neurologic/Psychiatric: No buyer agent II-XII nml as tested, No no motor/sensory deficits, No alert, No normal mood/affect, No oriented x 3, No abnormal cerebellar tests, No abnormal buyer agent II-XII, No abnormal gait, No aphasia, No EOM palsy, No facial droop, No motor weakness, No sensory deficit, No depressed affect, No disoriented x 3, No other, No grossly intact, No power is 5/5 both on sides Results/Procedures: Labs Laboratory Tests 9/23/17 06:29: White Blood Count 19.5H, Red Blood Count 3.04L, Hemoglobin 10.1L, Hematocrit 32L , Mean Corpuscular Volume 106H, Mean Corpuscular Hemoglobin 33, Mean Corpuscular Hemoglobin Concent 31L, Red Cell Distribution Width 17.5H, Platelet Count 529H, Mean Platelet Volume 12.1H, Sodium Level 137, Potassium Level 4.0, Chloride Level 108H, Carbon Dioxide Level 22, Anion Gap 7, Blood Urea Nitrogen 9 , Creatinine 1.02, Estimat Glomerular Filtration Rate > 60, BUN/Creatinine Ratio 9, Glucose Level 107H, Calcium Level 8.5, Total Bilirubin 0.9, Aspartate Amino Transf (AST/SGOT) 13, Alanine Aminotransferase (ALT/SGPT) 8, Alkaline Phosphatase 56, Total Protein 5.4L, Albumin 2.6L A/P: Assessment/Dx: Chest pain, acute diverticulitis Plan: Negative myocardial perfusion imaging. Chest pain is very unlikely due to obstructive coronary artery disease. Cardiology will sign off. Thank you for your consultation. Please call me if you have any questions. Kaela Middleton MD, FACP, FACC, FSCAI, FHRS, CCDS Interventional Cardiology Cardiac Electrophysiology Vascular Medicine and Endovascular Interventions Elton MIDDLETON MD Feb 10, 2017 1:43 pm
[2017-02-10] MEDS: ENOXAPARIN 40 MG/0.4 ML (LOVENOX) SYR SQ SCH (14:46)
[2017-02-10 17:45] VITALS: BP 143/75
[2017-02-11] MEDS: CIPROFLOXACIN 400 MG/D5W 200 ML (PRE-MIX) IV SCH ×2 (00:52→13:40)
[2017-02-11] MEDS: ONDANSETRON 4 MG/2 ML (SDV) Z0FRAN IV PRN ×2 (01:05→09:51)
[2017-02-11] MEDS: HYDROcodone/APAP 5 MG/325 MG (LORTAB) TAB PO PRN (03:33)
[2017-02-11] MEDS: CATHETER FLUSH 10 ML SYR IV SCH ×3 (04:43→19:43)
[2017-02-11] MEDS: metroNIDAZOLE 500 MG/100 ML IVPB (PRE-MIX) IV SCH ×4 (05:28→23:19)
[2017-02-11 05:33] VITALS: BP 137/71
[2017-02-11 06:22] LABS: MEAN PLATELET VOLUME 11.5 FL (7.4-10.4); RED BLOOD COUNT 2.88 10^6/uL (4.35-5.85); RED CELL DISTRIBUTION WIDTH 17.5 % (10.0-14.5); WHITE BLOOD COUNT 16.9 10^3/uL (4.3-11.0)
[2017-02-11] MEDS: ASPIRIN E.C. 81 MG (ECOTRIN) TAB PO SCH (08:11)
[2017-02-11] MEDS: PANTOPRAZOLE 40 MG/10 ML (PROTONIX) VIAL IV SCH ×2 (08:11→20:01)
[2017-02-11] MEDS: D5 1/2 NS W/KCL 20 MEQ/L 1,000 ML IV SCH ×3 (09:51→19:43)
--- NOTE | 2017-02-11 10:24 | Progress Note (SOAP) ---
Subjective Date Seen by Provider: Feb 11, 2017 Time Seen by Provider: 10:00 Subjective/Events-last exam doing slightly better. still has nausea however improving. abd pain improving as well. no fever/chills. having BM's. Objective Exam Vital Signs Date Time Temp Pulse Resp B/P (MAP) Pulse Ox O2 Delivery O2 Flow Rate FiO2 02/11/17 05:33 96.6 70 20 137/71 95 Room Air 02/10/17 17:45 98.3 72 18 143/75 96 Room Air I & O 02/12/17 07:00 Intake Total 1000 ml Balance 1000 ml Capillary Refill : Less Than 3 Seconds General Appearance: No Apparent Distress HEENT: PERRL/EOMI Neck: Full Range of Motion Respiratory: Chest Non Tender, Lungs Clear, Normal Breath Sounds Cardiovascular: Regular Rate, Rhythm Gastrointestinal: normal bowel sounds, soft Extremity: Normal Capillary Refill Neurologic/Psychiatric: Alert, Oriented x3 Skin: Normal Color Lymphatic: No Adenopathy Results Lab Laboratory Tests 02/11/17 05:55: White Blood Count 16.9H, Red Blood Count 2.88L, Hemoglobin 9.6L, Hematocrit 31L , Mean Corpuscular Volume 107H, Mean Corpuscular Hemoglobin 33, Mean Corpuscular Hemoglobin Concent 31L, Red Cell Distribution Width 17.5H, Platelet Count 634H, Mean Platelet Volume 11.5H Assessment/Plan Assessment/Plan Assess & Plan/Chief Complaint uncomplicated diverticulitis. advance to DYS3 diet. continue abx. abx likely source of nausea. Clinical Quality Measures DVT/VTE Risk/Contraindication: Risk Factor Score Per Nursin MIKE OTOOLE MD Feb 11, 2017 10:24 am
[2017-02-11] MEDS: ENOXAPARIN 40 MG/0.4 ML (LOVENOX) SYR SQ SCH (13:53)
[2017-02-11 17:18] VITALS: BP 164/80
[2017-02-12] MEDS: CIPROFLOXACIN 400 MG/D5W 200 ML (PRE-MIX) IV SCH (00:38)
[2017-02-12] MEDS: ONDANSETRON 4 MG/2 ML (SDV) Z0FRAN IV PRN (00:42)
[2017-02-12] MEDS: METOCLOPRAMIDE INJ 10 MG/2 ML (REGLAN) IVP PRN (04:30)
[2017-02-12] MEDS: CATHETER FLUSH 10 ML SYR IV SCH (05:15)
[2017-02-12] MEDS: metroNIDAZOLE 500 MG/100 ML IVPB (PRE-MIX) IV SCH (05:15)
[2017-02-12 05:28] VITALS: BP 162/77
[2017-02-12] MEDS: D5 1/2 NS W/KCL 20 MEQ/L 1,000 ML IV SCH (06:22)
[2017-02-12] MEDS: PANTOPRAZOLE 40 MG/10 ML (PROTONIX) VIAL IV SCH (08:35)
[2017-02-12] MEDS: ASPIRIN E.C. 81 MG (ECOTRIN) TAB PO SCH (08:35)
--- NOTE | 2017-02-12 09:28 | Cardiology Progress Note ---
Cardiology SOAP Progress Note Subjective: No further chest pain Objective: I&O/Vital Signs Vital Sign - Last 12Hours 02/12/17 05:28 Temp 97.8 Pulse 74 Resp 20 B/P (MAP) 162/77 Pulse Ox 96 O2 Delivery Room Air Weight (Pounds): 137 Weight (Ounces): 6.0 Weight (Calculated Kilograms): [id number] Constitutional: No appears stated age, No AAO x 3, No apparent distress, No PERRL, No well-developed, No well-nourished, No other Respiratory: No accessory muscle use, No respiratory distress, No chest tender , No chest expansion is symmetric, No chest is bilaterally symmetric, No lungs clear to percussion, No lungs clear to auscultation, No crackles, No rhonchi, No rales, No stridor, No wheezing, No pleural rub, No other Cardiovascular: No regular rate-rhythm, No irregularly irregular, No extra beats, No parasternal heave is noted, No JVD, No edema, No bradycardia, No tachycardia, No point of maximal impulse, No cardiac thrills are palpable, No S1 and S2, No gallop/S3, No gallop/S4, No diastolic murmur, No systolic murmur, No friction rub, No click, No other Gastrointestional: tender Extremities: No normal range of motion, No non-tender, No normal inspection, No pedal edema, No calf tenderness, No normal capillary refill, No pelvis stable , No calf tenderness, No inflammation, No pedal edema, No slow capillary refill , No swelling, No other, No abrasion, No clubbing, No cyanosis, No ecchymosis, No laceration, No no lower extremity edema bilateral, No significant edema, No tenderness, No wound Neurologic/Psychiatric: No cath laboratory technician II-XII nml as tested, No no motor/sensory deficits, No alert, No normal mood/affect, No oriented x 3, No abnormal cerebellar tests, No abnormal cath laboratory technician II-XII, No abnormal gait, No aphasia, No EOM palsy, No facial droop, No motor weakness, No sensory deficit, No depressed affect, No disoriented x 3, No other, No grossly intact, No power is 5/5 both on sides A/P: Assessment/Dx: Chest pain, acute diverticulitis Plan: Small fixed apical defect on myocardial perfusion imaging. Mild reversibility noted. This is a low risk nuclear scan. Cardiology follow-up is recommended as an outpatient. I have discussed with the patient as well as the nurse. My office information will be given to the patient. Follow-up in one to 2 weeks after discharge. Thank you for your consultation. Please call me if you have any questions. Kaela Middleton MD, FACP, FACC, FSCAI, FHRS, CCDS Interventional Cardiology Cardiac Electrophysiology Vascular Medicine and Endovascular Interventions Elton MIDDLETON MD Feb 12, 2017 9:28 am
[2017-02-12] MEDS ORDERED: METR500T PO (11:17)
[2017-02-12] MEDS ORDERED: CIPR500T4 PO (11:17)
--- NOTE | 2017-02-12 11:23 | D/C HH Face to Face Order ---
D/C Face to Face Orders Instructions for Patient Patient Instructions/FollowUp: DR ONTIVEROS 02/19 AT 9:40 Physician to follow Patient: DR ONTIVEROS Discharge Diet for Home: Soft Diet Patient Problems: DIVERTICULITIS WITH REACTIVE ILEUS, NOW RESOLVED ACUTE ON CHRONIC KIDNEY INJURY Goals for Patient: FULL DIET RETURN TO ADL'S Patient Data-Allergies,Ht & Wt Patient Allergies: Coded Allergies: No Known Drug Allergies (Verified , 07/21/09) Height (Feet): 5 Height (Inches): 7.00 Weight (Pounds): 137 Weight (Ounces): 6.0 Home Health Need/Face to Face Date of Face to Face: Feb 12, 2017 Clinical Findings: Generalized weakness and fatigue, Muscle weakness, Unsteady gait I have seen Pt [id number]: Yes Discharged To: Home Diagnosis/Conditions: DIVERTICULITIS REACTIVE ILEUS ACUTE ON CHRONIC KIDNEY INJURY Problems/Diagnosis/Condition: Patient is Homebound due to: Karla fall risk due to instabilty Homebound Status Due to the above stated illness, injury or surgical procedure (medical condition or diagnosis) and associated clinical findings, the patient is homebound because of his/her inability to leave home except with aid of a supportive device and/or person AND leaving the home requires a considerable and taxing effort or is medically contraindicated. Pt req the following assistanc: Aid of another person Home Health Nursing Orders Home Health Services Order: Nursing Services, Rn Radiation Oncology-Evaluate & Treat, Physical Therapy-Evaluate & Treat Home Health Infusion Therapy Line Type: NONE Site Location: Therapy Orders Therapy Orders: Physical Therapy, PT to assess for OT Therapy Specific Orders: Eval assistive deivces, Teach enviro modifications/ safety, Gait training, Increase strength/endurance Certify Stmt I certify that this patient is under my care and that I, a nurse practitioner or a physician; a plumber's assistant working with me, had a face to face encounter that - meets the physician face to face encounter requirements with this patient as dated. Copy Copies To 1: ANDRES ONTIVEROS MD,KRISTIN Tuttle MD Feb 12, 2017 11:17 am
--- NOTE | 2017-02-12 11:24 | Discharge Summary ---
Diagnosis/Chief Complaint Date of Admission Feb 09, 2017 at 10:54 am Date of Discharge February 12, 2017 Admission Diagnosis Admission Diagnosis SEE BELOW Discharge Diagnosis Diverticulitis with reactive ileus- with significant leukocytosis. supportive care with anti-emetics, IVF. Cipro/flagyl. Monitor status closely given report of significant time since flatus and frequent vomiting, may need NG for decompression 02/08- improving slightly with decreasing WBC and now passing flatus, continue antibiotics and supportive care 02/09- passed stool since yesterday and feeling slightly improved, but still vomiting frequently, not yet able to tolerate oral antibiotics, transferred to swing bed status for further IV antibiotics 02/12 - patient tolerated orals over the weekend. Will arrange for him to go home on cipro and flagyl orally. the leukocytosis is reactive and should probably be checked at his follow up visi tnext week with Dr Ontiveros. Chronic macrocytic anemia due to vitamin B12 deficiency- on monthly B12 injections per Hematology, stable Acute on chronic renal insufficiency- appears slightly above baseline since May, chart review reveals that at 12/2016 Hematology visit plan was for referral to Nephrology; appears hypovolemic due to vomiting and poor intake, IVF and hold furosemide -Also note of renal cysts on CT scan which were present last year, may need further imaging evaluation non-emergently Chronic bilirubin elevation- unclear etiology, work-up per Hematology with no dilated bile ducts, plan for monitoring History of thrombocythemia- previously on hydroxyurea which is on home med list , but last Hematology note states that was discontinued and changed to Anagrelide due to worsening anemia. Anagrelide changed to 0.5 mg BID at last Hematology visit 12/2016 with goal of platelets less than 400 and hemoglobin over 10. Holding anagrelide for now due to nausea. History of chronic compensated systolic heart failure, stable- continue home metoprolol and aspirin, hold lisinopril d/t renal function and furosemide due to hypovolemia 02/08- recurrence of chest pain, EKG done with no ST elevation, troponin pending , will consult Cardiology as it appears from his records last visit/evaluation was in 02/09- seen by Cardiology, echocardiogram with normal EF, some inferior hypokinesis, stress test results pending. DISCHARGE - will go home on oral antibiotics and soft diet - to follow up wt Dr Middleton regarding his CAD in 2 weeks - will follow up with Dr Ontiveros in 2 weeks regarding primary issues and the diverticulitis - will order home health to work on strengthening/gait Chief Complaint/HPI Chief Complaint/HPI Patient states he started having stomach problems about 3 days ago with nausea, vomiting and abdominal pain and just not feeling well. He denies diarrhea, in fact states he has had a hard time having a bowel movement and states his last BM and flatus that he recalls was about 2 days ago. He has not had fever that he knows of. He does have fairly significant difficulty in reporting his medical conditions and medications, which is typical for him. Discharge Summary-Simple/Stand Discharge Physical Examination Allergies: Coded Allergies: No Known Drug Allergies (Verified , 07/21/09) Vitals & I&Os Vital Sign - Last 12Hours Date Time Temp Pulse Resp B/P (MAP) Pulse Ox O2 Delivery O2 Flow Rate FiO2 02/12/17 05:28 97.8 74 20 162/77 96 Room Air General Appearance: Alert, Oriented X3, Cooperative, No Acute Distress Respiratory: Clear to Auscultation, Normal Air Movement Cardiovascular: Regular Rate, Normal S1, Normal S2, No Murmurs, Gallops, Rubs Abdominal: Normal Bowel Sounds, Soft, No Tenderness, No Hepatosplenomegaly, No Masses Extremities: No Clubbing, No Cyanosis, No Edema Skin: No Rashes, No Breakdown, No Significant Lesion Hospital Course See final discharge diagnosis. Labs Laboratory Tests Test 02/10/17 06:29 02/11/17 05:55 Range/Units White Blood Count 19.5 H 16.9 H 4.3-11.0 10^3/uL Red Blood Count 3.04 L 2.88 L 4.35-5.85 10^6/uL Hemoglobin 10.1 L 9.6 L 13.3-17.7 G/DL Hematocrit 32 L 31 L 40-54 % Mean Corpuscular Volume 106 H 107 H 80-99 FL Mean Corpuscular Hemoglobin 33 33 25-34 PG Mean Corpuscular Hemoglobin Concent 31 L 31 L 32-36 G/DL Red Cell Distribution Width 17.5 H 17.5 H 10.0-14.5 % Platelet Count 529 H 634 H 130-400 10^3/uL Mean Platelet Volume 12.1 H 11.5 H 7.4-10.4 FL Sodium Level 137 135-145 MMOL/L Potassium Level 4.0 3.6-5.0 MMOL/L Chloride Level 108 H 98-107 MMOL/L Carbon Dioxide Level 22 21-32 MMOL/L Anion Gap 7 5-14 MMOL/L Blood Urea Nitrogen 9 7-18 MG/DL Creatinine 1.02 0.60-1.30 MG/DL Estimat Glomerular Filtration Rate > 60 BUN/Creatinine Ratio 9 Glucose Level 107 H 70-105 MG/DL Calcium Level 8.5 8.5-10.1 MG/DL Total Bilirubin 0.9 0.1-1.0 MG/DL Aspartate Amino Transf (AST/SGOT) 13 5-34 U/L Alanine Aminotransferase (ALT/SGPT) 8 0-55 U/L Alkaline Phosphatase 56 40-136 U/L Total Protein 5.4 L 6.4-8.2 GM/DL Albumin 2.6 L 3.2-4.5 GM/DL Discharge Instructions to patient/family Please see electronic discharge instructions given to patient. Discharge Medications Reviewed and agree with Discharge Medication list on patient's Discharge Instruction sheet Clinical Quality Measures DVT/VTE Risk/Contraindication: Risk Factor Score Per Nursin Copy Copies To 1: ANDRES ONTIVEROS MD, JULIE A MD Feb 12, 2017 11:24
--- NOTE | 2017-02-12 15:44 | Therapy Team Discharge Summary ---
Therapy Discharge Summary Discharge Recommendations Date of Discharge Feb 12, 2017 at 13:45 Therapy D/C Recommendations: Home w/ Family Support, Occupational Therapy Home Care Occupational Therapy Pt. seen on swing bed for OT evaluation. Pt. required assistance to don socks. Able to perform transfers with SBA and some concern for safety. Pt. has discharged today home with home care to continue with strengthening and independence for all tasks. Social work to complete equipment needs. PT Patent Clerk Goals Patent Clerk Goals Rollin OT Patent Clerk Goals Jail Goals Time Frame: Feb 16, 2017 Eating (FIM): 7 (met) Eating (QC): 6 (met) Groomin (not met) Oral Hygiene (QC): 6 (not met) Bathing(FIM): 6 Upper Body Dressing(FIM): 6 (not met) Lower Body Dressing(FIM): 6 (not met) Toileting(FIM): 6 (not met) Toileting Hygiene (QC): 6 (not met) Toilet/Commode Transfer(FIM): 6 (not met) Toilet/Commode Transfer (QC): 6 (not met) Additional Goals: 1-Demonstrate ADL Tasks, 2-Verbalize Understanding, 3- ImproveStrength/Perri 1=Demonstrate adherence to instructed precautions during ADL tasks. 2=Patient will verbalize/demonstrate understanding of assistive devices/ modifications for ADL. 3=Patient will improve strength/tolerance for activity to enable patient to perform ADL's. MEGAN HERNANDEZ OT Feb 12, 2017 15:44
== END 2017-02-12 13:45 | disposition home health service (06) | DRG 392 ==
LOC: 4TH 10:54
PROVIDERS: ADMIT Family Medicine; ATTEND Family Medicine
DX: K57.32 Diverticulitis of large intestine without perforation or abscess without bleeding (principal); K56.7 Ileus, unspecified; I12.9 Hypertensive chronic kidney disease with stage 1 through stage 4 chronic kidney disease, or unspecified chronic kidney disease; N17.9 Acute kidney failure, unspecified; D53.9 Nutritional anemia, unspecified; N18.9 Chronic kidney disease, unspecified; I50.22 Chronic systolic (congestive) heart failure; R07.2 Precordial pain; I25.10 Atherosclerotic heart disease of native coronary artery without angina pectoris; I73.9 Peripheral vascular disease, unspecified; E53.8 Deficiency of other specified B group vitamins; K21.9 Gastro-esophageal reflux disease without esophagitis
CPT/HCPCS: 36415; 80053; 85027; 94664

== ENCOUNTER 2017-03-25 02:22 | Inpatient (IN) | payer MEDICARE, MEDICAID ==
[~2017-03-25] VITALS: Ht 170.2 cm; Wt 70.9 kg
[~2017-03-25 02:22] MED LIST changes: +CIPR500T4 PO; -METO-270 PO; +METO-387 PO; +METR500T PO
[2017-03-25 03:15] LABS: BASOPHILS % (AUTO) 0 % (0-10); BILIRUBIN,URINE NEGATIVE (NEGATIVE); EOSINOPHILS % (AUTO) 0 % (0-10); KETONES,URINE NEGATIVE (NEGATIVE); LEUKOCYTE ESTERASE ,URINE 1+ (NEGATIVE); LYMPHOCYTES # (AUTO) 0.9 X 10^3 (1.0-4.0); LYMPHOCYTES % (AUTO) 7 % (12-44); MEAN CORPUSCULAR HEMOGLOBIN 33 PG (25-34); MEAN CORPUSCULAR HGB CONC 31 G/DL (32-36); MEAN CORPUSCULAR VOLUME 107 FL (80-99); MEAN PLATELET VOLUME 10.9 FL (7.4-10.4); MONOCYTES % (AUTO) 8 % (0-12); NEUTROPHILS # (AUTO) 10.9 X 10^3 (1.8-7.8); NEUTROPHILS % (AUTO) 85 % (42-75); NITRITE,URINE NEGATIVE (NEGATIVE); PH,URINE 5 (5-9); PROTEIN,URINE 1+ (NEGATIVE); RED BLOOD COUNT 3.32 10^6/uL (4.35-5.85); RED CELL DISTRIBUTION WIDTH 18.8 % (10.0-14.5); UROBILINOGEN,URINE 1 MG/DL (NORMAL); WHITE BLOOD COUNT 12.8 10^3/uL (4.3-11.0)
[2017-03-25 03:18] LABS: PLATELET COUNT 1051 10^3/uL (130-400)
[2017-03-25 03:23] LABS: WBC,URINE RARE /HPF
--- NOTE | 2017-03-25 03:29 | ED Abdominal Pain ---
General Chief Complaint: Abdominal/GI Problems Stated Complaint: AB PAIN Nursing Triage Note: ABDOMINAL CRAMPING X3 DAYS Sepsis Screen: No Definite Risk Source of Information: Patient, Old Records (ALL PMH IS FROM OLD RECORDS) Exam Limitations: Other (PT IS AN EXTREMELY POOR HISTORIAN ABOUT CURRENT COMPLAINT AND KNOWS VERY MINIMAL PAST MEDICAL HISTORY) History of Present Illness Time Seen By Provider: 02:42 Initial Comments PT ARRIVES VIA POV FROM HOME--PT STATES HE LIVES WITH HIS SON AND GRANDSON PT C/O ABDOMINAL CRAMPING X 3 DAYS PT STATES "I COULDN'T STAND IT NO MORE" + NAUSEA, NO VOMITING THINKS HIS LAST BM WAS ON SUNDAY AND WAS LOOSE AND DARK PT DOES NOT KNOW IF HE HAS HAD FEVER OR NOT NO URINARY SYMPTOMS PT STATES HE HAS BEEN EATING AND DRINKING NORMALLY NO OTHER INFORMATION IS OBTAINABLE FROM PT PER OLD CHART, PT HAS HISTORY OF DIVERTICULITIS AND WAS ADMITTED IN JAN FOR THAT PROBLEM PT ALSO HAS HISTORY OF ULCERS AND GI BLEEDS AND HAS HAD A STOMACH RESECTION FOR BLEEDING ULCERS PCP: DR. ONTIVEROS/ [facility] HEMATOLOGY: DR. TALLEY MEDIA DEVELOPER: DR BILLINGSLEY SURGEON: DR. TAY Allergies and Home Medications Allergies Coded Allergies: No Known Drug Allergies (Verified , 07/21/09) Home Medications Anagrelide HCl 0.5 Mg Capsule, 0.5 MG PO BID, (Reported) Aspirin 81 Mg Tablet.dr, 81 MG PO DAILY, (Reported) Folic Acid 1 Mg Tablet, 1 MG PO DAILY, (Reported) Furosemide 20 Mg Tablet, 20 MG PO DAILY, (Reported) Hydroxyurea 500 Mg Capsule, 500 MG PO DAILY, (Reported) LAST FILLED #90 09-08-16 Iron Polysaccharide Complex 150 Mg Capsule, 150 MG PO BID, (Reported) Lisinopril 10 Mg Tablet, 10 MG PO DAILY, (Reported) LAST FILLED #30 17 Metoprolol Succinate 25 Mg Tab.er.24h, 25 MG PO DAILY, (Reported) Pantoprazole Sodium 40 Mg Tablet.dr, 40 MG PO DAILY, (Reported) Potassium Chloride 10 Meq Tablet.er, 10 MEQ PO DAILY, (Reported) Review of Systems Constitutional: no symptoms reported, other (VERY LIMITED HISTORIAN) Respiratory: No Symptoms Reported Cardiovascular: No Symptoms Reported Gastrointestinal: See HPI, Abdominal Pain, Nausea, Denies Vomiting Genitourinary: No Symptoms Reported Past Fnrjxqs-Jmxskx-Zhvjmy Hx Patient Social History Alcohol Use: Denies Use Recreational Drug Use: No Smoking Status: Never a Smoker 2nd Hand Smoke Exposure: No Recent Foreign Travel: No Contact w/Someone Who Travel: No Recent Infectious Disease Expo: No Recent Hopitalizations: No Immunizations Up To Date Tetanus Booster (TDap): Unknown PED Vaccines UTD: No Seasonal Allergies Seasonal Allergies: No Surgeries History of Surgeries: Yes (EGD'S / COLONOSCOPIES; STOMACH RESECTION FOR BLEEDING ULCERS/BILROTH 1; RIGHT TOTAL HIP REPLACEMENT 2009; HEMORRHOIDECTOMY; EXPLORATORY LAP; SPLENECTOMY; CARDIAC CATH X 2-LAST ONE 08/2014; ) Surgeries: Abdominal, Appendectomy, Cardiac, Joint Replacement, Orthopedic, Rectal Respiratory History of Respiratory Disorde: Yes (ASPIRATION PNEUMONIA/SEPSIS 12/2015) Currently Using CPAP: No Currently Using BIPAP: No Cardiovascular History of Cardiac Disorders: Yes (CAD, CARDIAC CATHS-NO INTERVENTION; CHF; PVD RIGHT LEG) Cardiac Disorders: Chronic Edema/Swelling, Coronary Artery Disease, Deep Vein Thrombosis, High Cholesterol, Hypertension, Peripheral Vascular Neurological History of Neurological Disord: Yes Reproductive System Hx Reproductive Disorders: No Sexually Transmitted Disease: No HIV/AIDS: No Genitourinary History of Genitourinary Disor: Yes (RENAL CYSTS; INTRERMITTENT RENAL INSUFFICIENCY) Genitourinary Disorders: Benign Prostatic Hyperpl Gastrointestinal History of Gastrointestinal Di: Yes (DIVERTICULITIS 01/2017; CHRONIC BILIRUBIN ELEVATION) Gastrointestinal Disorders: Gastroesophageal Reflux, Rodrigues's Esophagus, Gastrointestinal Bleed, Diverticulosis, Esophagitis, Hiatal Hernia, Ulcer Musculoskeletal History of Musculoskeletal Dis: Yes Musculoskeletal Disorders: Arthritis Endocrine History of Endocrine Disorders: No HEENT History of HEENT Disorders: Yes (POOR DENTITION) Loss of Vision: Denies Hearing Impairment: Denies Cancer History of Cancer: Yes (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) Cancer: Skin Psychosocial History of Psychiatric Problem: No Integumentary History of Skin or Integumenta: Yes (SKIN CANCER) Blood Transfusions History of Blood Disorders: Yes (PERNICIOUS ANEMIA; B12 DEFICIENCY; THROMBOCYTOPENIA; THROMBOCYTOSIS 03/25/2017) Adverse Reaction to a Blood Tr: No Physical Exam Vital Signs VS - Last 72 Hours, by Label 03/25/17 02:32 Temp 98.1 Pulse 85 Resp 18 B/P (MAP) 120/66 Pulse Ox 95 O2 Delivery Room Air Capillary Refill : Less Than 3 Seconds General Appearance: WD/WN, no apparent distress, other (UMKMEPT, DIRTY, MALODOROUS) HEENT: PERRL/EOMI, other (POOR DENTITION) Neck: normal inspection Respiratory: normal breath sounds, no respiratory distress, no accessory muscle use Cardiovascular: regular rate, rhythm, no murmur Gastrointestinal: normal bowel sounds, no organomegaly, no pulsatile mass, distended (SLIGHTLY DISTENDED AND FIRM), tenderness (MILD DIFFUSE TENDERNESS), No hernia, No mass Extremities: normal inspection, no pedal edema, no calf tenderness, normal capillary refill Back: normal inspection, no CVA tenderness Neurologic/Psychiatric: financial administrative assistant II-XII nml as tested, no motor/sensory deficits, alert, normal mood/affect, oriented x 3 (BUT VERY POOR MEMORY) Skin: normal color, warm/dry, No rash Progress/Results/Core Measures Results/Orders Lab Results Laboratory Tests Test 03/25/17 03:05 Range/Units White Blood Count 12.8 H 4.3-11.0 10^3/uL Red Blood Count 3.32 L 4.35-5.85 10^6/uL Hemoglobin 10.9 L 13.3-17.7 G/DL Hematocrit 36 L 40-54 % Mean Corpuscular Volume 107 H 80-99 FL Mean Corpuscular Hemoglobin 33 25-34 PG Mean Corpuscular Hemoglobin Concent 31 L 32-36 G/DL Red Cell Distribution Width 18.8 H 10.0-14.5 % Platelet Count 1051 *H 130-400 10^3/uL Mean Platelet Volume 10.9 H 7.4-10.4 FL Neutrophils (%) (Auto) 85 H 42-75 % Lymphocytes (%) (Auto) 7 L 12-44 % Monocytes (%) (Auto) 8 0-12 % Eosinophils (%) (Auto) 0 0-10 % Basophils (%) (Auto) 0 0-10 % Neutrophils # (Auto) 10.9 H 1.8-7.8 X 10^3 Lymphocytes # (Auto) 0.9 L 1.0-4.0 X 10^3 Monocytes # (Auto) 1.0 0.0-1.0 X 10^3 Eosinophils # (Auto) 0.0 0.0-0.3 10^3/uL Basophils # (Auto) 0.0 0.0-0.1 10^3/uL Urine Color YELLOW Urine Clarity CLEAR Urine pH 5 5-9 Urine Specific Gary 1.020 1.016-1.022 Urine Protein 1+ H NEGATIVE Urine Glucose (UA) NEGATIVE NEGATIVE Urine Ketones NEGATIVE NEGATIVE Urine Nitrite NEGATIVE NEGATIVE Urine Bilirubin NEGATIVE NEGATIVE Urine Urobilinogen 1 NORMAL MG/DL Urine Leukocyte Esterase 1+ H NEGATIVE Urine RBC (Auto) NEGATIVE NEGATIVE Urine RBC NONE /HPF Urine WBC RARE /HPF Urine Squamous Epithelial Cells 2-5 /HPF Urine Crystals NONE /LPF Urine Bacteria NEGATIVE /HPF Urine Casts NONE /LPF Urine Mucus LARGE H /LPF Urine Culture Indicated NO Sodium Level 145 135-145 MMOL/L Potassium Level 4.5 3.6-5.0 MMOL/L Chloride Level 112 H 98-107 MMOL/L Carbon Dioxide Level 21 21-32 MMOL/L Anion Gap 12 5-14 MMOL/L Blood Urea Nitrogen 20 H 7-18 MG/DL Creatinine 1.12 0.60-1.30 MG/DL Estimat Glomerular Filtration Rate > 60 BUN/Creatinine Ratio 18 Glucose Level 142 H 70-105 MG/DL Calcium Level 9.4 8.5-10.1 MG/DL Total Bilirubin 0.8 0.1-1.0 MG/DL Aspartate Amino Transf (AST/SGOT) 15 5-34 U/L Alanine Aminotransferase (ALT/SGPT) 12 0-55 U/L Alkaline Phosphatase 82 40-136 U/L Total Protein 7.6 6.4-8.2 GM/DL Albumin 3.7 3.2-4.5 GM/DL Amylase Level 44 25-125 U/L Lipase 16 8-78 U/L My Orders Orders - JAYDA MERRITT DO Saline Lock/Iv-Start (03/25/17 02:44) Amylase (03/25/17 02:44) Cbc With Automated Diff (03/25/17 02:44) Comprehensive Metabolic Panel (03/25/17 02:44) Lipase (03/25/17 02:44) Ua Culture If Indicated (03/25/17 02:44) Ct Abdomen/Pelvis W (03/25/17 03:48) Vital Signs/I&O Vital Sign - Last 12Hours 03/25/17 02:32 Temp 98.1 Pulse 85 Resp 18 B/P (MAP) 120/66 Pulse Ox 95 O2 Delivery Room Air Blood Pressure Mean: 84 Progress Note : Progress Note VOMITED X 1 ON RETURN FROM XRAY DEPT Diagnostic Imaging Comments CT ABDOMEN/PELVIS--DIVERTICULITIS HAS RESOLVED, BILATERAL RENAL LESIONS-SOME CYSTIC, SOME SOLID--CANNOT R/O CARCINOMA; STRICTURE OF MID SIGMOID COLON WITH TETHERING OF SEVERAL ADJACENT SMALL BOWEL LOOPS SUGGESTING ADHESIONS AND/OR FISTULA FORMATION; NEW FINDING OF COLONIC OBSTRUCTION WITH TRANSITION IN ANTERIOR LLQ, RELATED TO ADDITIONAL STRICTURE OF PROXIMAL SIGMOID., WITH SOMEWHAT OF AN APPLE CORE TYPE APPEARANCE, CANNOT R/O NEOPLASTIC PROCESS. PER [facility] VIA FAX @ [phone] Reviewed: Reviewed by Me Departure Communication (Admissions) Family Conversation DISCUSSED WITH PT'S SON THE CT FINDINGS AND CONCERN FOR NEOPLASTIC PROCESS, AND HE APPEARS TO UNDERSTAND. HE OPTS TO WAIT UNTIL FURTHER EVALUATION BY SURGEON / DEFINITIVE DIAGNOSIS BEFORE INFORMING PT OF POSSIBILITY OF NEOPLASM. Progress Notes 0510--SPOKE WITH DR. OTOOLE, ACCEPTS PT FOR ADMIT Impression Impression: Primary Impression: Bowel obstruction Disposition: ADMITTED INPATIENT Condition: Stable Admissions Decision to Admit Reason: Admit from ER (General) Decision to Admit/Date: Mar 25, 2017 Time/Decision to Admit Time: 05:10 Departure-Patient Inst. Referrals: [facility] (PCP/Family) Primary Care Physician JAYDA MERRITT DO Mar 25, 2017 03:29
[2017-03-25 03:36] LABS: ALANINE AMINOTRANSFERASE 12 U/L (0-55); ALBUMIN 3.7 GM/DL (3.2-4.5); AMYLASE 44 U/L (25-125); ANION GAP 12 MMOL/L (5-14); ASPARTATE AMINO TRANSFERASE 15 U/L (5-34); BILIRUBIN,TOTAL 0.8 MG/DL (0.1-1.0); BLOOD UREA NITROGEN 20 MG/DL (7-18); BUN/CREATININE RATIO 18; CALCIUM 9.4 MG/DL (8.5-10.1); CARBON DIOXIDE 21 MMOL/L (21-32); CHLORIDE 112 MMOL/L (98-107); CREATININE SERUM 1.12 MG/DL (0.60-1.30); GFR ESTIMATED > 60; GLUCOSE 142 MG/DL (70-105); LIPASE 16 U/L (8-78); POTASSIUM 4.5 MMOL/L (3.6-5.0); SODIUM 145 MMOL/L (135-145); TOTAL PROTEIN 7.6 GM/DL (6.4-8.2)
[2017-03-25] MEDS ORDERED: fentaNYL INJECTION 100 MCG/2 ML AMP IVP STA (05:16)
[2017-03-25] MEDS ORDERED: PANTOPRAZOLE 40 MG/10 ML (PROTONIX) VIAL IV ONE (05:30)
[2017-03-25] MEDS ORDERED: ONDANSETRON 4 MG/2 ML (SDV) Z0FRAN IVP ONE (05:30)
[2017-03-25] MEDS ORDERED: D5 1/2 NS 1000 ML IV SOLUTION 1,000 ML IV ONE (05:41)
[2017-03-25] MEDS: D5 1/2 NS 1000 ML IV SOLUTION 1,000 ML IV SCH ×3 (06:55→23:20)
--- NOTE | 2017-03-25 07:57 | Diagnostic Imaging Report ---
PROCEDURE: CT abdomen and pelvis with contrast. TECHNIQUE: Multiple contiguous axial images were obtained through the abdomen and pelvis after administration of intravenous contrast. INDICATION: Abdominal distention. COMPARISON: 02/06/17 and 11/11/14 FINDINGS: There is stable mild cardiac enlargement. The lung bases are clear. The gallbladder is surgically absent. Stable cystic change is seen involving both kidneys. These findings appear stable compared to the 2015 examination suggesting benignity. There is no hydronephrosis. The liver, pancreas and adrenal glands are normal. The spleen is surgically absent. Postoperative changes are seen involving the GE junction. Vascular structures are grossly normal. There is moderate distention of the entire colon and minimal distention of the terminal small bowel. There is a focal stricture involving the descending sigmoid junction. This could be secondary to adhesions, neoplasm or chronic inflammatory change. No distinct mass is identified. There is no free air free fluid. No bowel necrosis is seen. There is no abscess. Distal ureters and urinary bladder are grossly normal. There is slight prostate enlargement. Osseous structures are age-appropriate. IMPRESSION: 1. Mild to moderate colonic obstruction due to a lesion in the descending colon sigmoid junction. Direct visualization is recommended. This could represent neoplasm, adhesion and/or infection. 2. No free air, free fluid or abscess. 3. Stable benign-appearing renal cysts compared to a 2015 examination. There is no solid mass identified. 4. Surgically absent spleen and gallbladder. 5. Slight prostate enlargement. Dictated by: Dictated on workstation # [id number]
[2017-03-25 08:00] VITALS: BP 160/73
[2017-03-25] MEDS ORDERED: INFLUENZA TRIvalent 2017-2018 0.5 ML/45 MCG SYR IM ONE (08:00)
--- NOTE | 2017-03-25 09:43 | History & Physicial ---
History of Present Illness History of Present Illness Reason for visit/HPI This is a 71 year old male who was seen with Dr. Otoole. Patient reports that he started developing lower crampy abdominal pain 3-4 days ago. He reports that last night it became severe enough that he presented to the ER. He does report nausea as well as an episode of vomiting with his pain. He reports that his last BM was 2-3 days ago. He says his bowel movements have been more soft and darker but denies any tarry stool or bright red blood. He does have a history of diverticulitis. His last colonoscopy was last year and a polyp was found and was benign. He was not certain if he had been running a fever or not. Date of Admission Mar 25, 2017 at 05:10 Date Seen by Provider: Mar 25, 2017 Time Seen by Provider: 09:25 I consulted on this patient on 03/25/17 09:38 Attending Physician Mike Otoole MD Admitting Physician [place]irm[place],[facility] Allergies and Home Medications Allergies Coded Allergies: No Known Drug Allergies (Verified , 07/21/09) Home Medications Anagrelide HCl 0.5 Mg Capsule, 0.5 MG PO BID, (Reported) Aspirin 81 Mg Tablet.dr, 81 MG PO DAILY, (Reported) Folic Acid 1 Mg Tablet, 1 MG PO DAILY, (Reported) Furosemide 20 Mg Tablet, 20 MG PO DAILY, (Reported) Hydroxyurea 500 Mg Capsule, 500 MG PO DAILY, (Reported) LAST FILLED #90 09-08-16 Iron Polysaccharide Complex 150 Mg Capsule, 150 MG PO BID, (Reported) Lisinopril 10 Mg Tablet, 10 MG PO DAILY, (Reported) LAST FILLED #30 12-19-16 Metoprolol Succinate 25 Mg Tab.er.24h, 25 MG PO DAILY, (Reported) Pantoprazole Sodium 40 Mg Tablet.dr, 40 MG PO DAILY, (Reported) Potassium Chloride 10 Meq Tablet.er, 10 MEQ PO DAILY, (Reported) Past Pnwjhhs-Pmotmq-Ecnoss Hx Patient Social History Alcohol Use: Denies Use Recreational Drug Use: No Smoking Status: Never a Smoker 2nd Hand Smoke Exposure: No Physical Abuse Screen: No Sexual Abuse: No Recent Foreign Travel: No Contact w/other who traveled: No Recent Hopitalizations: No Recent Infectious Disease Expo: No Immunizations Up To Date Tetanus Booster (TDap): Unknown Pediatric: No Seasonal Allergies Seasonal Allergies: No Surgeries Yes Abdominal, Appendectomy, Cardiac, Joint Replacement, Orthopedic, Rectal Respiratory Yes (ASPIRATION PNEUMONIA/SEPSIS 12/2015) Currently Using CPAP: No Currently Using BIPAP: No Cardiovascular Yes (CAD, CARDIAC CATHS-NO INTERVENTION; CHF; PVD RIGHT LEG) Chronic Edema/Swelling, Coronary Artery Disease, Deep Vein Thrombosis, High Cholesterol, Hypertension, Peripheral Vascular Neurological Yes Reproductive System Hx Reproductive Disorders: No Sexually Transmitted Disease: No HIV/AIDS: No Genitourinary Yes (RENAL CYSTS; INTRERMITTENT RENAL INSUFFICIENCY) Benign Prostatic Hyperpl Gastrointestinal Yes (DIVERTICULITIS 01/2017; CHRONIC BILIRUBIN ELEVATION) Gastroesophageal Reflux, Rodrigues's Esophagus, Gastrointestinal Bleed, Diverticulosis, Esophagitis, Hiatal Hernia, Ulcer Musculoskeletal Yes Arthritis Endocrine History of Endocrine Disorders: No HEENT History of HEENT Disorders: Yes (POOR DENTITION) Loss of Vision: Denies Hearing Impairment: Denies Cancer Yes (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) Skin Psychosocial History of Psychiatric Problem: No Integumentary History of Skin or Integumenta: Yes (SKIN CANCER) Blood Transfusions History of Blood Disorders: Yes Adverse Reaction to a Blood Tr: No Constitutional: no symptoms reported EENTM: no symptoms reported Respiratory: no symptoms reported Cardiovascular: no symptoms reported Gastrointestinal: abdominal pain (Lower crampy abdominal pain), nausea, vomiting Genitourinary: no symptoms reported Musculoskeletal: no symptoms reported Skin: no symptoms reported Psychiatric/Neurological: No Symptoms Reported Physical Exam Vital Signs Vital Sign - Last 12Hours 03/25/17 02:32 Temp 98.1 Pulse 85 Resp 18 B/P (MAP) 120/66 Pulse Ox 95 O2 Delivery Room Air Capillary Refill : Less Than 3 Seconds General Appearance: No Apparent Distress, WD/WN HEENT: PERRL/EOMI Neck: Full Range of Motion, Normal Inspection, Non Tender, Supple Respiratory: Chest Non Tender, Lungs Clear, Normal Breath Sounds, No Accessory Muscle Use, No Respiratory Distress Cardiovascular: Regular Rate, Rhythm, No Edema Gastrointestinal: Soft, Tenderness (Lower abdomen) Extremity: Normal Capillary Refill, Normal Inspection, Normal Range of Motion, Non Tender, No Calf Tenderness, No Pedal Edema Neurologic/Psychiatric: Alert, Oriented x3 Skin: Normal Color, Warm/Dry Assessment/Plan Assessment and Plan A 71 year old male with recurrent diverticulitis WBC 12 VSS IV fluids, pain and nausea medications. IV abx. clear liquid diet. Problems: Clinical Quality Measures DVT/VTE Risk/Contraindication: Risk Factor Score Per Nursin RFS Level Per Nursing on Admit: 2=Moderate Copy Copies To 1: MIKE OTOOLE MD, DUSTIN L APRN Mar 25, 2017 09:43
[2017-03-25] MEDS ORDERED: CATHETER FLUSH 10 ML SYR IV PRN (10:15)
[2017-03-25] MEDS: PANTOPRAZOLE 40 MG/10 ML (PROTONIX) VIAL IV SCH (11:30)
[2017-03-25] MEDS: CIPROFLOXACIN IV 400MG/200ML 200 ML IV SCH ×2 (11:30→20:07)
[2017-03-25] MEDS: ONDANSETRON 4 MG/2 ML (SDV) Z0FRAN IV PRN (11:37)
[2017-03-25 12:00] VITALS: BP 157/76
[2017-03-25] MEDS: metroNIDAZOLE 500MG/100ML IVPB 100 ML IV SCH ×2 (13:13→22:12)
[2017-03-25] MEDS: HYDROcodone/APAP 7.5 MG/325 MG (LORTAB, LORCET PLUS) TABLET PO PRN (13:52)
[2017-03-25 16:00] VITALS: BP 129/63
[2017-03-25 20:00] VITALS: BP 134/70
[2017-03-25] MEDS: fentaNYL INJECTION 100 MCG/2 ML AMP IV PRN ×2 (20:10→23:19)
[2017-03-26 00:10] VITALS: BP 136/66
[2017-03-26 04:20] VITALS: BP 156/76
[2017-03-26] MEDS: metroNIDAZOLE 500MG/100ML IVPB 100 ML IV SCH ×3 (05:10→21:47)
[2017-03-26] MEDS: fentaNYL INJECTION 100 MCG/2 ML AMP IV PRN ×5 (05:10→16:11)
[2017-03-26 05:43] LABS: BASOPHILS % (AUTO) 0 % (0-10); EOSINOPHILS % (AUTO) 1 % (0-10); LYMPHOCYTES % (AUTO) 11 % (12-44); MEAN CORPUSCULAR HEMOGLOBIN 32 PG (25-34); MEAN CORPUSCULAR HGB CONC 31 G/DL (32-36); MEAN CORPUSCULAR VOLUME 106 FL (80-99); MEAN PLATELET VOLUME 11.2 FL (7.4-10.4); MONOCYTES # (AUTO) 1.2 X 10^3 (0.0-1.0); MONOCYTES % (AUTO) 14 % (0-12); NEUTROPHILS # (AUTO) 6.6 X 10^3 (1.8-7.8); NEUTROPHILS % (AUTO) 75 % (42-75); PLATELET COUNT 905 10^3/uL (130-400); RED BLOOD COUNT 2.93 10^6/uL (4.35-5.85); RED CELL DISTRIBUTION WIDTH 18.1 % (10.0-14.5); WHITE BLOOD COUNT 8.8 10^3/uL (4.3-11.0)
[2017-03-26 06:11] LABS: ALANINE AMINOTRANSFERASE 7 U/L (0-55); ALBUMIN 2.9 GM/DL (3.2-4.5); ANION GAP 8 MMOL/L (5-14); ASPARTATE AMINO TRANSFERASE 27 U/L (5-34); BILIRUBIN,TOTAL 1.1 MG/DL (0.1-1.0); BLOOD UREA NITROGEN 12 MG/DL (7-18); BUN/CREATININE RATIO 14; CALCIUM 8.4 MG/DL (8.5-10.1); CARBON DIOXIDE 23 MMOL/L (21-32); CHLORIDE 108 MMOL/L (98-107); CREATININE SERUM 0.84 MG/DL (0.60-1.30); GFR ESTIMATED > 60; GLUCOSE 130 MG/DL (70-105); POTASSIUM 4.3 MMOL/L (3.6-5.0); SODIUM 139 MMOL/L (135-145); TOTAL PROTEIN 5.5 GM/DL (6.4-8.2)
[2017-03-26 08:00] VITALS: BP 156/88
[2017-03-26] MEDS: PANTOPRAZOLE 40 MG/10 ML (PROTONIX) VIAL IV SCH ×2 (08:17→20:06)
[2017-03-26] MEDS: CIPROFLOXACIN IV 400MG/200ML 200 ML IV SCH ×2 (08:18→20:06)
[2017-03-26] MEDS: D5 1/2 NS 1000 ML IV SOLUTION 1,000 ML IV SCH ×3 (10:14→21:47)
[2017-03-26] MEDS: ONDANSETRON 4 MG/2 ML (SDV) Z0FRAN IV PRN ×2 (10:23→21:47)
[2017-03-26 12:00] VITALS: BP 172/83
[2017-03-26 16:00] VITALS: BP 173/86
--- NOTE | 2017-03-26 17:05 | Progress Note (SOAP) ---
Subjective Date Seen by Provider: Mar 26, 2017 Time Seen by Provider: 17:00 Subjective/Events-last exam doing better. still has pain in lower abd quadrants. had nausea/vomiting earlier today however none since having BM. no fever/chills. Objective Exam Vital Signs Date Time Temp Pulse Resp B/P (MAP) Pulse Ox O2 Delivery O2 Flow Rate FiO2 03/26/17 16:00 97.8 75 20 173/86 94 Room Air 03/26/17 12:00 98.7 76 16 172/83 94 Room Air 03/26/17 08:15 Room Air 03/26/17 08:00 98.4 72 18 156/88 94 Room Air 03/26/17 04:20 97.7 68 16 156/76 96 Room Air 03/26/17 00:10 97.9 64 18 136/66 94 Room Air 03/25/17 20:10 Room Air 03/25/17 20:00 98.7 73 18 134/70 96 Room Air I & O 03/27/17 07:00 Intake Total 200 ml Output Total 825 ml Balance -625 ml Capillary Refill : Less Than 3 Seconds General Appearance: No Apparent Distress HEENT: PERRL/EOMI Neck: Full Range of Motion Respiratory: Chest Non Tender, Lungs Clear, Normal Breath Sounds Cardiovascular: Regular Rate, Rhythm Gastrointestinal: normal bowel sounds, soft, tenderness Extremity: Normal Capillary Refill Neurologic/Psychiatric: Alert, Oriented x3 Skin: Normal Color Lymphatic: No Adenopathy Results Lab Laboratory Tests 03/26/17 05:33: White Blood Count 8.8, Red Blood Count 2.93L, Hemoglobin 9.5L, Hematocrit 31L, Mean Corpuscular Volume 106H, Mean Corpuscular Hemoglobin 32, Mean Corpuscular Hemoglobin Concent 31L, Red Cell Distribution Width 18.1H, Platelet Count 905H, Mean Platelet Volume 11.2H, Neutrophils (%) (Auto) 75, Lymphocytes (%) (Auto) 11L, Monocytes (%) (Auto) 14H, Eosinophils (%) (Auto) 1, Basophils (%) (Auto) 0 , Neutrophils # (Auto) 6.6, Lymphocytes # (Auto) 1.0, Monocytes # (Auto) 1.2H, Eosinophils # (Auto) 0.0, Basophils # (Auto) 0.0, Sodium Level 139, Potassium Level 4.3, Chloride Level 108H, Carbon Dioxide Level 23, Anion Gap 8, Blood Urea Nitrogen 12, Creatinine 0.84, Estimat Glomerular Filtration Rate > 60, BUN/ Creatinine Ratio 14, Glucose Level 130H, Calcium Level 8.4L, Total Bilirubin 1.1H, Aspartate Amino Transf (AST/SGOT) 27, Alanine Aminotransferase (ALT/SGPT) 7, Alkaline Phosphatase 61, Total Protein 5.5L, Albumin 2.9L Assessment/Plan Assessment/Plan Assess & Plan/Chief Complaint diverticulitis. continue bowel rest and IV abx. continue clear liquid diet for now. increase ambulation. Clinical Quality Measures DVT/VTE Risk/Contraindication: Risk Factor Score Per Nursin RFS Level Per Nursing on Admit: 2=Moderate MIKE OTOOLE MD Mar 26, 2017 5:05 pm
[2017-03-26 19:56] VITALS: BP 158/87
[2017-03-27] VITALS: BP 133/66
[2017-03-27 03:20] VITALS: BP 154/80
[2017-03-27] MEDS: metroNIDAZOLE 500MG/100ML IVPB 100 ML IV SCH ×3 (05:03→22:16)
[2017-03-27 07:51] VITALS: BP 148/81
[2017-03-27] MEDS: D5 1/2 NS 1000 ML IV SOLUTION 1,000 ML IV SCH ×3 (07:52→20:17)
[2017-03-27] MEDS: CIPROFLOXACIN IV 400MG/200ML 200 ML IV SCH ×2 (08:15→20:09)
[2017-03-27] MEDS: PANTOPRAZOLE 40 MG/10 ML (PROTONIX) VIAL IV SCH ×2 (08:15→20:09)
[2017-03-27] MEDS: lisINopril 10 MG (PRINIVIL) TAB PO SCH (08:15)
[2017-03-27] MEDS: HYDROcodone/APAP 7.5 MG/325 MG (LORTAB, LORCET PLUS) TABLET PO PRN ×3 (09:01→23:57)
[2017-03-27 11:57] VITALS: BP 127/66
[2017-03-27] MEDS ORDERED: POLYETHYLENE GLYCOL 17 GM (MIRALAX) PACK PO ONE ×2 (13:14→14:00)
--- NOTE | 2017-03-27 13:14 | Progress Note (SOAP) ---
Subjective Date Seen by Provider: Mar 27, 2017 Time Seen by Provider: 13:00 Subjective/Events-last exam doing slightly better. reports pain improved. still has nausea however no vomiting. may be related to abx secondary rxn. hx PUD as well. Objective Exam Vital Signs Date Time Temp Pulse Resp B/P (MAP) Pulse Ox O2 Delivery O2 Flow Rate FiO2 03/27/17 11:57 97.7 63 20 127/66 96 Room Air 03/27/17 08:00 95 Room Air 03/27/17 07:51 99.4 82 18 148/81 95 Room Air 03/27/17 03:20 99.1 79 16 154/80 94 Room Air 03/27/17 00:00 98.3 76 16 133/66 95 Room Air 03/26/17 20:00 Room Air 03/26/17 19:56 99.1 73 18 158/87 94 Room Air 03/26/17 16:00 97.8 75 20 173/86 94 Room Air Capillary Refill : Less Than 3 Seconds General Appearance: No Apparent Distress HEENT: PERRL/EOMI Neck: Full Range of Motion Respiratory: Chest Non Tender, Lungs Clear, Normal Breath Sounds Cardiovascular: Regular Rate, Rhythm Gastrointestinal: soft, tenderness Extremity: Normal Capillary Refill Neurologic/Psychiatric: Alert, Oriented x3 Skin: Normal Color Lymphatic: No Adenopathy Assessment/Plan Assessment/Plan Assess & Plan/Chief Complaint diverticulitis and PUD continue bowel rest and IV abx. continue clear liquid diet for now. when appetite improves, increase diet. Clinical Quality Measures DVT/VTE Risk/Contraindication: Risk Factor Score Per Nursin RFS Level Per Nursing on Admit: 2=Moderate MIKE OTOOLE MD Mar 27, 2017 1:14 pm
--- NOTE | 2017-03-27 13:25 | Progress Note-Standard ---
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 pain more episodic and intermittent. did have BM on this admission. no focal tenderness LLQ. will plan for EGD and colonoscopy tomorrow. if no significant finding and continued symptoms, then UGI with SBFT. MIKE OTOOLE MD Mar 27, 2017 1:25 pm
[2017-03-27 15:54] VITALS: BP 118/57
[2017-03-27] MEDS: ONDANSETRON 4 MG/2 ML (SDV) Z0FRAN IV PRN ×2 (17:13→23:58)
[2017-03-27 19:50] VITALS: BP 150/75
[2017-03-27] MEDS: METOCLOPRAMIDE INJ 10 MG/2 ML (REGLAN) IVP PRN (20:09)
[2017-03-27] MEDS ORDERED: POLYETHYLENE GLYCOL 17 GM (MIRALAX) PACK PO NR (21:00)
[2017-03-27] MEDS: fentaNYL INJECTION 100 MCG/2 ML AMP IV PRN (23:58)
[2017-03-28] VITALS: BP 148/75
[2017-03-28] MEDS: D5 1/2 NS 1000 ML IV SOLUTION 1,000 ML IV SCH ×4 (01:32→21:27)
[2017-03-28 04:00] VITALS: BP 172/86
[2017-03-28] MEDS: fentaNYL INJECTION 100 MCG/2 ML AMP IV PRN (04:31)
[2017-03-28] MEDS: METOCLOPRAMIDE INJ 10 MG/2 ML (REGLAN) IVP PRN (04:53)
[2017-03-28] MEDS: metroNIDAZOLE 500MG/100ML IVPB 100 ML IV SCH (05:42)
[2017-03-28] MEDS ORDERED: FLEET ENEMA ADULT 1 EA BTL PR NR (06:48)
[2017-03-28 08:00] VITALS: BP 167/82
[2017-03-28] MEDS: lisINopril 10 MG (PRINIVIL) TAB PO SCH (08:10)
[2017-03-28] MEDS: CIPROFLOXACIN IV 400MG/200ML 200 ML IV SCH (08:11)
[2017-03-28] MEDS: PANTOPRAZOLE 40 MG/10 ML (PROTONIX) VIAL IV SCH ×2 (08:11→21:26)
--- NOTE | 2017-03-28 11:18 | Conscious Sedation/ASA ---
Conscious Sedation Pre-Proced Time Reviewed: 11:00 ASA Class: 2 Airway Mallampati Classification: ([place] appropriate class) I. II. III, IV Lungs Heart ASA score ASA 1: a normal healthy patient ASA 2: a patient with a mild systemic disease (mid diabetes, controlled hypertension, obesity ASA 3: a patient with a severe systemic disease that limits activity (angina , COPD, prior Myocardial infarction) ASA 4: a patient with an incapacitating disease that is a constant threat to life (CHF, renal failure) ASA 5: a moribund patient not expected to survive 24 hrs. (ruptured aneurysm) ASA 6: a declared brain patient whose organs are being harvested. For emergent operations, add the letter E after the classification Grade 2 Sedation Plan: Analgesia, Amnesia, Plan communicated to team members, Discussed options with patient/fam, Discussed risks with patient/fam Note The patient is an appropriate candidate to undergo the planned procedure, sedation, and anesthesia. The patient immediately re-assessed prior to indication. MIKE OTOOLE MD Mar 28, 2017 11:18
--- NOTE | 2017-03-28 11:19 | Progress Note-Pre Operative ---
Pre-Operative Progress Note H&P Reviewed The H&P was reviewed, patient examined and no changes noted. Date Seen by Provider: Mar 28, 2017 Time Seen by Provider: 11:00 Date H&P Reviewed: Mar 28, 2017 Time H&P Reviewed: 11:00 Pre-Operative Diagnosis: recurrent nausea/vomiting/abd pain, weight loss MIKE OTOOLE MD Mar 28, 2017 11:19
[2017-03-28 12:00] VITALS: BP 141/74
[2017-03-28] MEDS ORDERED: LIDOCAINE JELLY 2% (XYLOCAINE) 5 ML TUBE ONE (12:13)
[2017-03-28] MEDS ORDERED: fentaNYL INJECTION 100 MCG/2 ML AMP ONE (12:13)
[2017-03-28] MEDS ORDERED: MIDAZOLAM 2 MG/2 ML (VERSED) VIAL ONE ×4 (12:13→12:14)
[2017-03-28] MEDS ORDERED: HURRICAINE EXT TUBE (BENZOCAINE) ONE (12:14)
[2017-03-28] MEDS ORDERED: NS IV 500 ML 500 ML ONE (12:18)
[2017-03-28] MEDS ORDERED: NS IV 500 ML 500 ML IV PRN (12:25)
[2017-03-28] MEDS: MIDAZOLAM 2 MG/2 ML (VERSED) VIAL IVP PRN ×5 (12:30→13:37)
[2017-03-28] MEDS ORDERED: LIDOCAINE JELLY 2% (XYLOCAINE) 5 ML TUBE MM PRN (12:45)
[2017-03-28] MEDS ORDERED: HURRICAINE EXT TUBE (BENZOCAINE) XX PRN (12:45)
[2017-03-28] MEDS: fentaNYL INJECTION 100 MCG/2 ML AMP IVP PRN ×2 (12:46→13:06)
--- NOTE | 2017-03-28 14:02 | Progress Note-Post Operative ---
Post-Operative Progess Note Surgeon (s)/Technical Business Systems Analyst (s) Surgeon MIKE OTOOLE MD Technical Business Systems Analyst: none Pre-Operative Diagnosis recurrent nausea/vomiting/abd pain, weight loss Post-Operative Diagnosis reflux esophagitis(class C), esophageal candidiasis, small HH(1.5cm), patent gastro-jejunal anastomosis. chronic stage 1 ext and int hemorrhoids, rectosigmoid near-obstructing lesion(neoplasm v. severe diverticulitits) Procedure & Operative Findings Date of Procedure 03/28/17 Procedure Performed/Findings EGD with bx. Sigmoidoscopy with bx and submucosal injection Anesthesia Type CS Estimated Blood Loss Estimated blood loss (mL): minimal Specimens/Packing Specimens Removed Rectosigmoid mass, GE jxn, antrum, distal esophageal brushings. MIKE OTOOLE MD Mar 28, 2017 2:02 pm
[2017-03-28] MEDS ORDERED: FLUCONAZOLE 200 MG/100 ML 100 ML IV NR (14:15)
[2017-03-28] MEDS ORDERED: PIPERACILLIN/TAZOBACTAM 4.5 GM/NS100 ML IVPB IV NR ×2 (14:15)
[2017-03-28] MEDS ORDERED: PIPERACILLIN SODIUM/TAZOBACTAM 4.5 GM in NS (IVPB) 100 ML IV SCH (14:15)
[2017-03-28 16:00] VITALS: BP 165/86
[2017-03-28 20:00] VITALS: BP 159/77
[2017-03-28] MEDS: PIPERACILLIN/TAZOBACTAM 4.5 GM/NS 100 ML IVPB IV SCH ×2 (21:27)
--- NOTE | 2017-03-28 22:40 | OPERATIVE REPORT ---
DATE OF SERVICE: 03/28/2017 ATTENDING PRIMARY CARE PHYSICIAN: [facility]. PREOPERATIVE DIAGNOSES: Recurrent nausea, vomiting, abdominal pain and weight loss. POSTOPERATIVE DIAGNOSES: Reflux esophagitis class C, esophageal candidiasis, small hiatal hernia approximately 1.5 cm in size, intact gastric pouch with widely patent Billroth II gastrojejunal anastomosis. Chronic stage I external and internal hemorrhoids, near-obstructing lesion of the rectosigmoid junction, which may indicate neoplasm versus severe diverticulosis. PROCEDURE: EGD with biopsy and brushings, colonoscopy with biopsies and submucosal injection. SURGEON: Dr. Otoole. ANESTHESIA: Conscious sedation. ESTIMATED BLOOD LOSS: Minimal. FINDINGS: EGD reflux esophagitis class C, distal esophageal candidiasis, small hiatal hernia approximately 1.5 cm in size, mild gastritis, intact gastric pouch with what appears to be a Billroth II gastrojejunal anastomosis, which is widely patent and no strictures. COLONOSCOPY: Chronic stage I external and internal hemorrhoids, not actively edematous nor inflamed and no bleeding. There was a near-obstructing lesion approximately at the rectosigmoid junction, approximately 30 cm from the anal verge. This is white and edematous and this may indicate a neoplastic process versus severe diverticulitis. This was biopsied and injected with black ink. DISPOSITION: The patient tolerated the procedure well. INDICATIONS FOR PROCEDURE: The patient is a 71-year-old male who developed crampy abdominal pain for approximately 3 to 4 days. He reported that this increased in severity and he presented to the Emergency Department. He also had reported nausea as well as an episode of vomiting with the pain. He reports that he is having bowel movements, which had been softer lately. He does have a history of diverticulitis. His last colonoscopy was approximately one year ago where a polyp was identified and found to be benign. A CT scan was performed, which did show thickening of the wall of the sigmoid colon, which may have indicated the diverticulitis; however, a neoplasm could not be ruled out. There were also dilated loops of small bowel consistent with a potential partial small bowel obstruction. He was admitted and treated for diverticulitis; however, he had continued episodes of nausea and anorexia. He was able to pass gas and did have a bowel movement. He continued to have episodic episodes of crampy abdominal pain as well. 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 DESCRIPTION OF PROCEDURE: The patient was brought to the endoscopy suite, laid in the left lateral decubitus position. After adequate IV pain and sedating medications and conscious sedation anesthesia, the mouthpiece was applied. Endoscope was placed in the mouth, visualizing the pharynx and hypopharyngeal region. Vocal cords, epiglottis and vallecula identified and appeared to be normal. The endoscope was then gently intubated at the esophageal opening and esophagus insufflated. The endoscope was then advanced to the first, second and third portions of the esophagus. At the level of the GE junction, a reflux esophagitis class C identified. There was also a yellowish-whitish plaque consistent with an esophageal candidiasis. A biopsy was taken of the GE junction using forceps with visualization of good hemostasis. The plaque-like coating was brushed and sent for fungus. The endoscope was then easily advanced into the gastric pouch and endoscope retroflexed. A small hiatal hernia approximately 1.5 cm in size was identified. There was a small gastric pouch, which was intact. There was a mild gastritis. The gastrojejunal anastomosis appeared normal. The previous surgery appeared to be a Billroth II with the afferent and efferent limbs identified and widely patent. A biopsy was taken of the gastric pouch with forceps for H. pylori with visualization of good hemostasis. Endoscope was then slowly withdrawn while taking a second look and suctioning of residual air with no additional findings. The patient tolerated this portion of the procedure well. For now, we will keep him on Protonix and recommend the necessary lifestyle and diet accommodation including avoidance of caffeinated beverages, spicy, greasy and acidic foods as well as smaller, more frequent meals and avoidance of eating at night. Under the same conscious sedation anesthesia, we then proceeded with the colonoscopy portion of the procedure. A digital rectal examination was performed, which revealed mild chronic stage I external and internal hemorrhoids, not actively edematous nor inflamed and no bleeding. Prostate gland was palpable and appeared normal. The endoscope was then intubated to the anus, rectum and gently insufflated. The endoscope was then advanced to the [facility] [place] in the rectum with no polyps or any neoplasms identified. We then came across what appeared to be the rectosigmoid junction with a near-obstructing lesion identified. This was edematous with a white overlying layer. There were liquid contents coming through this, indicating no complete obstruction. We could not differentiate if this was a neoplastic process versus severe diverticulitis. Multiple biopsies were taken using forceps with visualization of good hemostasis. We also proceeded with submucosal injection around the lesion with black ink. The endoscope was slowly withdrawn while taking a second look and suctioning of residual air with no additional findings. The patient tolerated the procedure well. We will admit him back to the floor and can start Zosyn 4.5 g q.8h. in the event that this is a severe form of diverticulitis. We will also await the biopsy results. We will also restart a clear liquid diet and advance as tolerated for now. Job ID: [id number] DocumentID: [id number] Dictated Date: 03/28/2017 14:14:31 Retail Office Manager Date: 03/28/2017 19:53:49 Dictated By: MIKE OTOOLE MD
[2017-03-29 00:23] VITALS: BP 146/79
[2017-03-29] MEDS: PIPERACILLIN/TAZOBACTAM 4.5 GM/NS 100 ML IVPB IV SCH ×6 (04:23→20:03)
[2017-03-29] MEDS: D5 1/2 NS 1000 ML IV SOLUTION 1,000 ML IV SCH ×2 (04:23→13:19)
[2017-03-29 04:30] VITALS: BP 149/79
[2017-03-29 08:00] VITALS: BP 150/84
[2017-03-29] MEDS: lisINopril 10 MG (PRINIVIL) TAB PO SCH (08:58)
[2017-03-29] MEDS: PANTOPRAZOLE 40 MG/10 ML (PROTONIX) VIAL IV SCH ×2 (08:59→20:03)
[2017-03-29] MEDS: HYDROcodone/APAP 7.5 MG/325 MG (LORTAB, LORCET PLUS) TABLET PO PRN (09:01)
[2017-03-29] MEDS: FLUCONAZOLE 100 MG/50 ML 50 ML IV SCH (10:12)
[2017-03-29 12:00] VITALS: BP 156/75
--- NOTE | 2017-03-29 15:41 | Progress Note-Post Operative ---
Post-Operative Progess Note Surgeon (s)/Development Technologist (s) Surgeon MIKE OTOOLE MD Development Technologist: none Pre-Operative Diagnosis recurrent nausea/vomiting/abd pain, weight loss Post-Operative Diagnosis sigmoid mass/stricture Procedure & Operative Findings Date of Procedure 03/29/17 Procedure Performed/Findings left subclavian central venous cath Anesthesia Type local Estimated Blood Loss Estimated blood loss (mL): minimal Specimens/Packing Specimens Removed none MIKE OTOOLE MD Mar 29, 2017 3:41 pm
[2017-03-29 16:14] VITALS: BP 178/89
--- NOTE | 2017-03-29 16:30 | Diagnostic Imaging Report ---
INDICATION: Status post central line placement. COMPARISON: 02/04/17. FINDINGS: Left subclavian central venous catheter has tip at the superior cavoatrial junction. Right basilar patchy reticular and nodular opacities are present. No pneumothorax. Stable cardiomegaly. Unchanged mild pulmonary vascular redistribution. IMPRESSION: 1. Left subclavian central venous catheter has tip appropriately positioned and there is no pneumothorax. Dictated by: Dictated on workstation # [id number]
[2017-03-29 20:09] VITALS: BP 154/78
--- NOTE | 2017-03-29 22:01 | OPERATIVE REPORT ---
DATE OF SERVICE: 03/29/2017 ATTENDING PRIMARY CARE PHYSIC[facility]. 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 PROCEDURE: Placement of left subclavian central venous catheter. SURGEON: Mike Otoole MD. AUTOMOTIVE ACCESSORY INSTALLER: Sherwin Sosa APRN. ANESTHESIA: Local. ESTIMATED BLOOD LOSS: Minimal. DISPOSITION: The patient tolerated the procedure well. INDICATIONS: The patient is a 71-year-old male with crampy abdominal pain on recurrent basis. He was admitted again for a 3 to 4 day history of crampy abdominal pain as well as vomiting. He has a history of diverticulitis. His last colonoscopy was approximately 1 year ago where a polyp was identified and it found to be benign. A CT scan was performed, which did show a thickening of the wall of sigmoid colon, which may have indicated diverticulitis; however, neoplasm cannot be ruled out. There was also dilated loops of small bowel and consistent with a partial small-bowel obstruction. He was admitted and treated for diverticulitis; however, continued to have episodes of nausea and anorexia. He underwent a colonoscopy, which did show a near obstructing mass versus stricture at the sigmoid colon. This gentleman has not eaten any significant fluid for some amount of time and has lost a significant amount of weight. We will await the biopsy results; however, due to a potential surgery as well as potential greater than 7 days of no alimentation and we will proceed with a placement of the central venous catheter and TPN along with it, but however he can take p.o. at this time. DESCRIPTION OF PROCEDURE: The chest and neck were prepped and draped in standard surgical fashion. A 1% lidocaine was used to anesthetize the overlying skin in the left subclavian region. The left subclavian vein was then cannulated with drawing of venous blood. The guidewire was then inserted without any resistance. The cannulating needle removed and a transverse skin incision made using a #11 blade. A dilator was then introduced over the guidewire. The triple lumen central venous catheter was then placed over the guidewire using the Seldinger technique. The guidewire was then removed. All 3 ports kevyn venous blood and flushed pristine without any resistance. The catheter was then sutured to the skin using 3-0 silk interrupted sutures. The catheter was then cleaned and covered with sterile gauze followed by Op-Site. The patient tolerated the procedure well. We will get a post-procedure chest x-ray and once placement was confirmed, the catheter may be accessed and used at any time. Job ID: [id number] DocumentID: [id number] Dictated Date: 03/29/2017 15:46:24 Railroad Supervisor Of Engines Date: 03/29/2017 22:00:46 Dictated By: MIKE OTOOLE MD MTDD
[2017-03-30] VITALS (7 sets, daily range): BP systolic 116–155; BP diastolic 67–87
[2017-03-30] MEDS: D5 1/2 NS 1000 ML IV SOLUTION 1,000 ML IV SCH ×2 (00:30→09:21)
[2017-03-30] MEDS: PIPERACILLIN/TAZOBACTAM 4.5 GM/NS 100 ML IVPB IV SCH ×6 (04:07→20:57)
[2017-03-30 05:55] LABS: INR 1.1 (0.8-1.4); PROTHROMBIN TIME PATIENT 14.1 SEC (12.2-14.7)
[2017-03-30 06:05] LABS: ALANINE AMINOTRANSFERASE 33 U/L (0-55); ALBUMIN 2.9 GM/DL (3.2-4.5); ANION GAP 10 MMOL/L (5-14); ASPARTATE AMINO TRANSFERASE 22 U/L (5-34); BILIRUBIN,TOTAL 1.6 MG/DL (0.1-1.0); BLOOD UREA NITROGEN 7 MG/DL (7-18); BUN/CREATININE RATIO 7; CALCIUM 8.5 MG/DL (8.5-10.1); CARBON DIOXIDE 22 MMOL/L (21-32); CHLORIDE 105 MMOL/L (98-107); CREATININE SERUM 0.97 MG/DL (0.60-1.30); GFR ESTIMATED > 60; GLUCOSE 124 MG/DL (70-105); MAGNESIUM 1.3 MG/DL (1.8-2.4); PHOSPHORUS 2.9 MG/DL (2.3-4.7); POTASSIUM 3.6 MMOL/L (3.6-5.0); SODIUM 137 MMOL/L (135-145); TOTAL PROTEIN 5.9 GM/DL (6.4-8.2); TRIGLYCERIDES 56 MG/DL (<150)
[2017-03-30] MEDS ORDERED: TPN IV SCH (08:00)
[2017-03-30] MEDS: PANTOPRAZOLE 40 MG/10 ML (PROTONIX) VIAL IV SCH ×2 (09:25→20:57)
[2017-03-30] MEDS: FLUCONAZOLE 100 MG/50 ML 50 ML IV SCH (09:25)
[2017-03-30] MEDS: lisINopril 10 MG (PRINIVIL) TAB PO SCH (09:25)
[2017-03-30] MEDS ORDERED: RT-ALBUTEROL SULF 2.5 MG/3 ML PRE-MIX VIAL IH PRN (10:00)
[2017-03-30] MEDS: MAGNESIUM 1 GM/100 ML IVPB 100 ML IV SCH ×4 (11:05→15:01)
[2017-03-30] MEDS: RT-ALBUTEROL SULF 2.5 MG/3 ML PRE-MIX VIAL IH SCH ×3 (14:36→22:36)
--- NOTE | 2017-03-30 14:42 | Progress Note (SOAP) ---
Subjective Date Seen by Provider: Mar 30, 2017 Time Seen by Provider: 14:30 Subjective/Events-last exam Patient reports doing well. Tolerating diet, but reports he is not eating much and has not had much to eat for approx 1 week. No N/V. Having BMs. No fever/ chills. LLQ abdominal pain. RN reports that O2 stats were in the 80s this AM, otherwise doing well. Review of Systems General: No Chills, No Night Sweats Gastrointestinal: Abdominal Pain, No: Nausea, Vomiting Objective Exam Vital Signs Date Time Temp Pulse Resp B/P (MAP) Pulse Ox O2 Delivery O2 Flow Rate FiO2 03/30/17 12:00 98.5 100 16 138/77 96 Nasal Cannula 2.00 03/30/17 10:18 97 98 36 03/30/17 08:38 98.6 106 16 151/87 84 Room Air 03/30/17 08:00 Nasal Cannula 4.00 03/30/17 04:00 99.0 90 16 155/76 91 Room Air 03/30/17 00:00 99.3 89 18 153/75 90 Room Air 03/29/17 20:09 99.3 89 18 154/78 90 Room Air 03/29/17 20:00 Room Air 03/29/17 16:14 98.5 82 18 178/89 92 Room Air I & O 03/31/17 07:00 Intake Total 400 ml Balance 400 ml Capillary Refill : Less Than 3 SecondsLess Than 3 Seconds General Appearance: No Apparent Distress, WD/WN HEENT: PERRL/EOMI Neck: Full Range of Motion, Normal Inspection, Non Tender, Supple Respiratory: Chest Non Tender, Lungs Clear, Normal Breath Sounds, No Accessory Muscle Use, No Respiratory Distress Cardiovascular: Regular Rate, Rhythm, No Edema Gastrointestinal: normal bowel sounds, soft, tenderness (LLQ) Extremity: Normal Capillary Refill, Normal Inspection, Normal Range of Motion, Non Tender, No Calf Tenderness, No Pedal Edema Neurologic/Psychiatric: Alert, Oriented x3 Skin: Normal Color, Warm/Dry Results Lab Laboratory Tests 03/30/17 05:30: Prothrombin Time 14.1, INR Comment 1.1, Sodium Level 137, Potassium Level 3.6, Chloride Level 105, Carbon Dioxide Level 22, Anion Gap 10, Blood Urea Nitrogen 7 , Creatinine 0.97, Estimat Glomerular Filtration Rate > 60, BUN/Creatinine Ratio 7, Glucose Level 124H, Calcium Level 8.5, Phosphorus Level 2.9, Magnesium Level 1.3L, Total Bilirubin 1.6H, Aspartate Amino Transf (AST/SGOT) 22, Alanine Aminotransferase (ALT/SGPT) 33, Alkaline Phosphatase 136, Total Protein 5.9L, Albumin 2.9L, Prealbumin 11.8L, Triglycerides Level 56 Assessment/Plan Assessment/Plan Assess & Plan/Chief Complaint A 71 year old male with 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 Will continue with medical management. [facility] physican consulted for medical management. IV fluids, pain, nausea meds. TPN to start today. Awaiting biopsy results from endoscopy. Clinical Quality Measures DVT/VTE Risk/Contraindication: Risk Factor Score Per Nursin RFS Level Per Nursing on Admit: 2=Moderate RAIMUNDO BONILLA TEST MANAGER Mar 30, 2017 2:42 pm
--- NOTE | 2017-03-30 16:10 | Diagnostic Imaging Report ---
INDICATION: Hypoxia. Frontal chest obtained at 3:54 p.m. and compared to 03/29/17. FINDINGS: There is cardiomegaly and central vascular congestion. There is infiltrate in the medial portion of both lung bases similar to the prior study. There is no pneumothorax or pleural fluid. IMPRESSION: Cardiomegaly. Unchanged bibasilar infiltrates. No pneumothorax or pleural fluid. Dictated by: Dictated on workstation # [id number]
[2017-03-30] MEDS ORDERED: [UNRECOGNIZED DRUG - OTHER] IV SCH ×11 (17:00)
[2017-03-30] MEDS ORDERED: SODIUM ACETATE IV SCH ×11 (17:00)
[2017-03-30] MEDS ORDERED: SODIUM CHLORIDE IV SCH ×11 (17:00)
[2017-03-30] MEDS: 1/2 NS IV SOLUTION 1,000 ML IV SCH (17:24)
[2017-03-30] MEDS ORDERED: FUROSEMIDE 40 MG/4 ML INJ (LASIX) IVP ONE (21:30)
[2017-03-31] VITALS: BP 116/73
[2017-03-31] MEDS ORDERED: FUROSEMIDE 40 MG/4 ML INJ (LASIX) IVP ONE (02:00)
[2017-03-31] MEDS: RT-ALBUTEROL SULF 2.5 MG/3 ML PRE-MIX VIAL IH SCH ×6 (02:07→22:54)
[2017-03-31] MEDS: HYDROcodone/APAP 7.5 MG/325 MG (LORTAB, LORCET PLUS) TABLET PO PRN (02:36)
[2017-03-31 04:00] VITALS: BP 101/66
[2017-03-31] MEDS: PIPERACILLIN/TAZOBACTAM 4.5 GM/NS 100 ML IVPB IV SCH ×6 (04:23→22:04)
[2017-03-31 06:05] LABS: ALBUMIN 2.8 GM/DL (3.2-4.5); BILIRUBIN,TOTAL 1.2 MG/DL (0.1-1.0); CALCIUM 8.3 MG/DL (8.5-10.1); CREATININE SERUM 1.22 MG/DL (0.60-1.30); MAGNESIUM 2.4 MG/DL (1.8-2.4); PHOSPHORUS 3.2 MG/DL (2.3-4.7); POTASSIUM 3.5 MMOL/L (3.6-5.0)
[2017-03-31 08:00] VITALS: BP 102/67
[2017-03-31] MEDS: POTASSIUM CL 10MEQ/50ML IVPB 50 ML IV SCH ×4 (08:35→10:55)
[2017-03-31] MEDS: FLUCONAZOLE 100 MG/50 ML 50 ML IV SCH (08:41)
[2017-03-31] MEDS: lisINopril 10 MG (PRINIVIL) TAB PO SCH (08:42)
[2017-03-31] MEDS: PANTOPRAZOLE 40 MG/10 ML (PROTONIX) VIAL IV SCH ×2 (08:42→22:03)
--- NOTE | 2017-03-31 10:52 | Progress Note (SOAP) ---
Subjective Subjective/Events-last exam Mr Brown is a 71yo gentleman who presented with recurrent nausea and vomiting. He was taken to endoscopy and found to have a sigmoid mass and stricture. He also has recurrent diverticulitis/diverticulosis. Medicine is consulted due to continued shortness of breath and desats quickly with movement. He does not complain of SOB while sitting in bed when using the Vapotherm. He is eating and drinking well, passing flatus. We gave him some lasix doses last night in the event that fluid overload was an issue, but this has shown minimal improvement in saturations. Review of Systems Date Seen by Provider: Mar 31, 2017 Time Seen by Provider: 10:00 Pulmonary: Dyspnea Cardiovascular: No: Chest Pain Objective Exam Last Set of Vital Signs Vital Signs Date Time Temp Pulse Resp B/P (MAP) Pulse Ox O2 Delivery O2 Flow Rate FiO2 03/31/17 10:24 96 Vapotherm 40.00 75 03/31/17 08:00 99.1 88 20 102/67 Capillary Refill : Less Than 3 SecondsLess Than 3 Seconds I&O Intake and Output 04/01/17 00:00 Intake Total 200 ml Output Total 2025 ml Balance -1825 ml Intake Oral 100 ml IV Total 100 ml Output Urine Total 2025 ml # Bowel Movements 1 General: Alert, Oriented X3, Cooperative, No Acute Distress Lungs: Clear to Auscultation, Normal Air Movement Heart: Regular Rate, Normal S1, Normal S2, No Murmurs, Gallops, Rubs Abdomen: Normal Bowel Sounds, Soft, No Tenderness, No Hepatosplenomegaly, No Masses Extremities: No Clubbing, No Cyanosis, No Edema Psych/Mental Status: Mental Status NL, Mood NL Results/Procedures Lab Laboratory Tests 03/31/17 00:04: Glucometer 214H 03/31/17 04:39: Sodium Level 135, Potassium Level 3.5L, Chloride Level 102, Carbon Dioxide Level 21, Anion Gap 12, Blood Urea Nitrogen 16, Creatinine 1.22, Estimat Glomerular Filtration Rate 58, BUN/Creatinine Ratio 13, Glucose Level 218H, Calcium Level 8.3L, Phosphorus Level 3.2, Magnesium Level 2.4, Total Bilirubin 1.2H, Aspartate Amino Transf (AST/SGOT) 27, Alanine Aminotransferase (ALT/SGPT) 26, Alkaline Phosphatase 106, Total Protein 6.0L, Albumin 2.8L Assessment/Plan Assessment/Plan Plan SUBSEGMENTAL PE'S POSTOPERATIVELY SHORTNESS OF BREATH -CTA positive for PEs - will start lovenox 60mg q12h as treatment -can change to Eliquis or other PO anticoagulant when tolerating PO convincingly -volume overload is minimal, so no further doses of lasix -CXR and CTA not concerning for infection - pt on Zosyn for bowel coverage SIGMOID MASS -awaiting path results MALNUTRITIONAL WEIGHT LOSS, NONINTENTIONAL -on TPN per surgical team HTN -on home meds THROMBOCYTOSIS -likely acute phase reactant, increases risk for stroke GI PROPH: IV Protonix Clinical Quality Measures DVT/VTE Risk/Contraindication: Risk Factor Score Per Nursin RFS Level Per Nursing on Admit: 2=Moderate KRISTIN FAJARDO MD Mar 31, 2017 10:52 am
[2017-03-31] MEDS ORDERED: IOHEXOL 350 MG/ML 150 ML (OMNIPAQUE 350) VIAL IV ONE (11:15)
[2017-03-31] MEDS ORDERED: NS 100 ML (IVPB) BAG IV ONE (11:15)
[2017-03-31 12:00] VITALS: BP 112/74
--- NOTE | 2017-03-31 12:08 | Progress Note ---
Subjective Date Seen by Provider: Mar 31, 2017 Time Seen by Provider: 11:15 Subjective/Events-last exam Patient tolerating diet. Patient having some difficulty breathing and maintaining o2 saturation. He is on Vapotherm at this time. He is having shortness of breath which is not improving. He states he is not having any abdominal pain at this time. He is passing flatus. No other complaints at this time. Objective Exam Vital Signs Date Time Temp Pulse Resp B/P (MAP) Pulse Ox O2 Delivery O2 Flow Rate FiO2 03/31/17 10:24 96 Vapotherm 40.00 75 03/31/17 08:00 99.1 88 20 102/67 94 Vapotherm 75.00 40.00 03/31/17 07:00 95 Vapotherm 40.00 75 03/31/17 04:00 99.2 92 20 101/66 95 Vapotherm 03/31/17 02:07 95 Vapotherm 40.00 75 03/31/17 00:00 98.6 96 20 116/73 95 Vapotherm 03/30/17 22:36 94 Vapotherm 40.00 75 03/30/17 20:44 93 Vapotherm 40.00 75 03/30/17 20:09 93 OxyMask 12.00 03/30/17 20:00 Nasal Cannula 6.00 03/30/17 19:48 91 OxyMask 12.00 03/30/17 19:47 90 High Flow N/C 12.00 03/30/17 19:38 98.6 104 22 116/67 79 High Flow N/C 6.00 03/30/17 18:16 95 Nasal Cannula 8.00 03/30/17 15:43 92 High Flow N/C 10.00 03/30/17 15:39 74 Nasal Cannula 2.00 03/30/17 15:35 99.6 108 16 134/75 Nasal Cannula 2.00 03/30/17 14:36 93 Nasal Cannula 2.00 Capillary Refill : Less Than 3 SecondsLess Than 3 Seconds General Appearance: No Apparent Distress, WD/WN HEENT: PERRL/EOMI Neck: Full Range of Motion, Normal Inspection, Non Tender, Supple Respiratory: Chest Non Tender, Other (slightly labored breathing on vapotherm) Cardiovascular: Regular Rate, Rhythm, No Edema Gastrointestinal: normal bowel sounds, soft (no significant tenderness on exam) Extremity: Normal Capillary Refill, Normal Inspection, Normal Range of Motion, Non Tender, No Calf Tenderness, No Pedal Edema Neurologic/Psychiatric: Alert, Oriented x3 Skin: Normal Color, Warm/Dry Lymphatic: No Adenopathy Results Lab Laboratory Tests 03/31/17 00:04: Glucometer 214H 03/31/17 04:39: Sodium Level 135, Potassium Level 3.5L, Chloride Level 102, Carbon Dioxide Level 21, Anion Gap 12, Blood Urea Nitrogen 16, Creatinine 1.22, Estimat Glomerular Filtration Rate 58, BUN/Creatinine Ratio 13, Glucose Level 218H, Calcium Level 8.3L, Phosphorus Level 3.2, Magnesium Level 2.4, Total Bilirubin 1.2H, Aspartate Amino Transf (AST/SGOT) 27, Alanine Aminotransferase (ALT/SGPT) 26, Alkaline Phosphatase 106, Total Protein 6.0L, Albumin 2.8L Assessment/Plan Assessment/Plan Assessment/Plan A 71 year old male with 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 Hypoxia maintaining adequate oxygenation on vapotherm, cta chest already ordered [facility] physican consulteded for medical management. IV fluids, pain, nausea meds. TPN Awaiting biopsy results from endoscopy. Clinical Quality Measures DVT/VTE Risk/Contraindication: Risk Factor Score Per Nursin RFS Level Per Nursing on Admit: 2=Moderate JULISA STOLL DO Mar 31, 2017 12:08
--- NOTE | 2017-03-31 12:19 | Diagnostic Imaging Report ---
PROCEDURE: CT angiography of the chest with contrast. TECHNIQUE: Multiple contiguous axial images were obtained through the chest after uneventful bolus administration of intravenous contrast. Reconstructed CTA MIP acquisitions were also performed. INDICATION: Severe shortness of air and hypoxia. Postoperative patient. Exam confirms the presence of relatively mild burden of lower greater than upper lobe and right greater than left pulmonary arterial emboli. The intraluminal filling defects are largely nonocclusive; however, within right lower lobe subsegmental branches, much of the clot does appear to be occlusive. Left and right main pulmonary arteries were without thrombus and the undivided pulmonary segment unremarkable. There is no intracardiac chamber mass or thrombus. No abnormal reflux of venous contrast media. There is a small left pleural effusion without evidence for its loculation. There is no pericardial effusion. There is mild aortic ectasia without focal dilatation, dissection, or rupture. There is mild basilar atelectasis. No focal alveolar consolidation. Visualized upper abdomen reveals chronic renal cysts and air and fluid distending the visualized upper bowel loops improved in magnitude from the prior. We note while not protocoled for optimal evaluation of the pulmonary arterial branches the previous study of 03/25/2007, shows the vessels today occluded in the right lower lobe to have been patent, confirming new clot. IMPRESSION: Exam confirms relatively mild burden of acute PE right greater than left, lower greater than upper lobe branches. No central clot or saddle embolus. Small left effusion. No findings of pulmonary hemorrhage or lung infarct. Mild basilar atelectasis. Cardiomegaly without pericardial fluid. Results discussed with the ordering physician. Dictated by: Dictated on workstation # [id number]
[2017-03-31] MEDS: ENOXAPARIN 60 MG/0.6 ML (LOVENOX) SYR SC SCH (12:21)
[2017-03-31 15:38] VITALS: BP 101/63
[2017-03-31] MEDS: 1/2 NS IV SOLUTION 1,000 ML IV SCH (16:36)
[2017-03-31] MEDS ORDERED: SODIUM CHLORIDE IV SCH ×12 (17:00)
[2017-03-31] MEDS ORDERED: [UNRECOGNIZED DRUG - OTHER] IV SCH ×12 (17:00)
[2017-03-31] MEDS ORDERED: SODIUM ACETATE IV SCH ×12 (17:00)
[2017-03-31 19:21] VITALS: BP 108/67
[2017-03-31] MEDS: NS IV 1000 ML 1,000 ML IV SCH (23:21)
[2017-04-01 00:13] VITALS: BP 104/66
[2017-04-01] MEDS: ENOXAPARIN 60 MG/0.6 ML (LOVENOX) SYR SC SCH ×2 (00:16→11:23)
[2017-04-01] MEDS: HYDROcodone/APAP 7.5 MG/325 MG (LORTAB, LORCET PLUS) TABLET PO PRN (00:33)
[2017-04-01 04:59] VITALS: BP 97/61
[2017-04-01] MEDS: PIPERACILLIN/TAZOBACTAM 4.5 GM/NS 100 ML IVPB IV SCH ×6 (05:01→20:08)
[2017-04-01] MEDS: RT-ALBUTEROL SULF 2.5 MG/3 ML PRE-MIX VIAL IH SCH ×6 (05:31→22:07)
[2017-04-01 05:43] LABS: CALCIUM 8.4 MG/DL (8.5-10.1); CREATININE SERUM 1.41 MG/DL (0.60-1.30); PHOSPHORUS 3.8 MG/DL (2.3-4.7); POTASSIUM 4.2 MMOL/L (3.6-5.0)
[2017-04-01 07:55] VITALS: BP 108/61
[2017-04-01] MEDS: FLUCONAZOLE 100 MG/50 ML 50 ML IV SCH (08:09)
[2017-04-01] MEDS: PANTOPRAZOLE 40 MG/10 ML (PROTONIX) VIAL IV SCH ×2 (08:09→20:08)
[2017-04-01] MEDS: NS IV 1000 ML 1,000 ML IV SCH ×3 (08:09→16:57)
[2017-04-01 09:24] LABS: BASOPHILS % (AUTO) 0 % (0-10); EOSINOPHILS % (AUTO) 0 % (0-10); LYMPHOCYTES # (AUTO) 0.8 X 10^3 (1.0-4.0); LYMPHOCYTES % (AUTO) 4 % (12-44); MEAN CORPUSCULAR HEMOGLOBIN 32 PG (25-34); MEAN CORPUSCULAR HGB CONC 31 G/DL (32-36); MEAN CORPUSCULAR VOLUME 103 FL (80-99); MONOCYTES # (AUTO) 2.9 X 10^3 (0.0-1.0); MONOCYTES % (AUTO) 15 % (0-12); NEUTROPHILS # (AUTO) 15.6 X 10^3 (1.8-7.8); NEUTROPHILS % (AUTO) 80 % (42-75); PLATELET COUNT 668 10^3/uL (130-400); RED BLOOD COUNT 2.75 10^6/uL (4.35-5.85); RED CELL DISTRIBUTION WIDTH 17.9 % (10.0-14.5); WHITE BLOOD COUNT 19.4 10^3/uL (4.3-11.0)
[2017-04-01] MEDS: lisINopril 10 MG (PRINIVIL) TAB PO SCH (09:29)
[2017-04-01] MEDS ORDERED: NS IV 1000 ML 1,000 ML IV SCH (09:45)
[2017-04-01 09:50] LABS: HYPOCHROMASIA SLIGHT; LYMPHOCYTES % (MANUAL) 4 %; NEUTROPHILS % (MANUAL) 82 %; POIKILOCYTOSIS MODERATE
[2017-04-01 09:51] LABS: BURR CELLS MODERATE; CRENATED RBC SLIGHT
--- NOTE | 2017-04-01 11:02 | Progress Note (SOAP) ---
Subjective Subjective/Events-last exam Patient states his breathing is about the same today. He is still requiring Vapotherm. He is eating and drinking well, also stooling. Review of Systems Date Seen by Provider: Apr 01, 2017 Time Seen by Provider: 09:30 Pulmonary: Dyspnea Cardiovascular: No: Chest Pain Objective Exam Last Set of Vital Signs Vital Signs Date Time Temp Pulse Resp B/P (MAP) Pulse Ox O2 Delivery O2 Flow Rate FiO2 04/01/17 08:00 99 Vapotherm 30.00 04/01/17 07:55 98.9 95 20 108/61 04/01/17 06:57 70 Capillary Refill : Less Than 3 SecondsLess Than 3 Seconds I&O Intake and Output 04/02/17 00:00 Intake Total 1050 ml Output Total 300 ml Balance 750 ml Intake Oral 100 ml IV Total 950 ml Output Urine Total 300 ml General: Alert, Oriented X3, Cooperative, No Acute Distress Lungs: Clear to Auscultation, Normal Air Movement Heart: Regular Rate, Normal S1, Normal S2, No Murmurs, Gallops, Rubs Abdomen: Normal Bowel Sounds, Soft, No Tenderness Extremities: No Clubbing, No Cyanosis, No Edema Results/Procedures Lab Laboratory Tests 03/31/17 12:06: Glucometer 184H 03/31/17 17:45: Glucometer 188H 03/31/17 22:58: Glucometer 140H 04/01/17 01:23: Glucometer 127H 04/01/17 04:58: White Blood Count 19.4H, Red Blood Count 2.75L, Hemoglobin 8.8L, Hematocrit 28L , Mean Corpuscular Volume 103H, Mean Corpuscular Hemoglobin 32, Mean Corpuscular Hemoglobin Concent 31L, Red Cell Distribution Width 17.9H, Platelet Count 668H, Mean Platelet Volume 12.0H, Neutrophils (%) (Auto) 80H, Lymphocytes (%) (Auto) 4L, Monocytes (%) (Auto) 15H, Eosinophils (%) (Auto) 0, Basophils (% ) (Auto) 0, Neutrophils # (Auto) 15.6H, Lymphocytes # (Auto) 0.8L, Monocytes # ( Auto) 2.9H, Eosinophils # (Auto) 0.0, Basophils # (Auto) 0.0, Neutrophils % ( Manual) 82, Lymphocytes % (Manual) 4, Monocytes % (Manual) 14, Hypochromasia SLIGHT, Poikilocytosis MODERATE, [place] Cells MODERATE, Crenated Cell SLIGHT, Elliptocytes MODERATE, Acanthocytes MODERATE, Sodium Level 137, Potassium Level 4.2, Chloride Level 106, Carbon Dioxide Level 22, Anion Gap 9, Blood Urea Nitrogen 27H, Creatinine 1.41H, Estimat Glomerular Filtration Rate 49, BUN/ Creatinine Ratio 19, Glucose Level 116H, Calcium Level 8.4L, Phosphorus Level 3.8, Magnesium Level 2.0 Microbiology 03/28/17 Fungal Culture - Preliminary, Resulted Yeast Species Assessment/Plan Assessment/Plan Plan SUBSEGMENTAL PE'S POSTOPERATIVELY SHORTNESS OF BREATH -CTA positive for PEs - will start lovenox 60mg q12h as treatment -can change to Eliquis or other PO anticoagulant when tolerating PO convincingly -volume overload is minimal, so no further doses of lasix -CXR and CTA not concerning for infection - pt on Zosyn for bowel coverage 04/01 - continue lovenox for now, can discuss bridging therapy with pharmacy tomorrow SIGMOID MASS -awaiting path results MALNUTRITIONAL WEIGHT LOSS, NONINTENTIONAL -on TPN per surgical team 04/01 - pt pulled his central line. do not believe TPN is indicated in patient taking total PO. ALLISON 04/01 - GFR down, will replace fluids. NS 500ml x2 h, then increase fluids to 150ml/h. recheck BMP at 1600. HTN -on home meds 04/01 - BP down today, could be volume depletio. holding antihypertensives for now. THROMBOCYTOSIS -likely acute phase reactant, increases risk for stroke 04/01 - improved LEUKOCYTOSIS 04/01 - likely related to PE's and stress, no fever to indicate continued infection, no left shift GI PROPH: IV Protonix Clinical Quality Measures DVT/VTE Risk/Contraindication: Risk Factor Score Per Nursin RFS Level Per Nursing on Admit: 2=Moderate KRISTIN FAJARDO MD Apr 01, 2017 11:02 am
[2017-04-01 12:00] VITALS: BP 111/73
--- NOTE | 2017-04-01 13:23 | Progress Note ---
Subjective Date Seen by Provider: Apr 01, 2017 Time Seen by Provider: 13:17 Subjective/Events-last exam Patient states his breathing is maybe a little bit better. She is still on Vapotherm. He had a CTA demonstrating acute pulmonary embolism. He was started on Lovenox. Patient pulled out central line last evening. He is tolerating diet and had bowel movement. He has not had any fever. Patient with no other complaints at this time. Denies nausea vomiting fever sweats chills or chest pain Objective Exam Vital Signs Date Time Temp Pulse Resp B/P (MAP) Pulse Ox O2 Delivery O2 Flow Rate FiO2 04/01/17 12:00 98.9 94 20 111/73 100 Vapotherm 70.00 30.00 04/01/17 11:19 99 Vapotherm 30.00 70 04/01/17 08:00 99 Vapotherm 30.00 04/01/17 07:55 98.9 95 20 108/61 99 Vapotherm 70.00 30.00 04/01/17 06:57 100 Vapotherm 40.00 70 04/01/17 04:59 97.7 87 18 97/61 100 Vapotherm 70.00 40.00 04/01/17 00:16 98.2 04/01/17 00:13 98.2 92 20 104/66 100 Vapotherm 70.00 40.00 03/31/17 22:55 98 Vapotherm 40.00 70 03/31/17 20:45 Vapotherm 70 03/31/17 19:21 98.2 99 24 108/67 99 Vapotherm 65.00 40.00 03/31/17 18:54 90 Vapotherm 40.00 65 03/31/17 15:38 98.0 94 28 101/63 96 Vapotherm 65.00 40.00 03/31/17 14:17 93 Vapotherm 40.00 70 I & O 04/02/17 07:00 Intake Total 1950 ml Balance 1950 ml Capillary Refill : Less Than 3 SecondsLess Than 3 Seconds General Appearance: No Apparent Distress, WD/WN HEENT: PERRL/EOMI Neck: Full Range of Motion, Normal Inspection, Non Tender, Supple Respiratory: Chest Non Tender, Other (slightly labored breathing on vapotherm) Cardiovascular: Regular Rate, Rhythm, No Edema Gastrointestinal: normal bowel sounds, soft (no significant tenderness on exam) Extremity: Normal Capillary Refill, Normal Inspection, Normal Range of Motion, Non Tender, No Calf Tenderness, No Pedal Edema Neurologic/Psychiatric: Alert, Oriented x3 Skin: Normal Color, Warm/Dry Lymphatic: No Adenopathy Results Lab Laboratory Tests 03/31/17 17:45: Glucometer 188H 03/31/17 22:58: Glucometer 140H 04/01/17 01:23: Glucometer 127H 04/01/17 04:58: White Blood Count 19.4H, Red Blood Count 2.75L, Hemoglobin 8.8L, Hematocrit 28L , Mean Corpuscular Volume 103H, Mean Corpuscular Hemoglobin 32, Mean Corpuscular Hemoglobin Concent 31L, Red Cell Distribution Width 17.9H, Platelet Count 668H, Mean Platelet Volume 12.0H, Neutrophils (%) (Auto) 80H, Lymphocytes (%) (Auto) 4L, Monocytes (%) (Auto) 15H, Eosinophils (%) (Auto) 0, Basophils (% ) (Auto) 0, Neutrophils # (Auto) 15.6H, Lymphocytes # (Auto) 0.8L, Monocytes # ( Auto) 2.9H, Eosinophils # (Auto) 0.0, Basophils # (Auto) 0.0, Neutrophils % ( Manual) 82, Lymphocytes % (Manual) 4, Monocytes % (Manual) 14, Hypochromasia SLIGHT, Poikilocytosis MODERATE, [place] Cells MODERATE, Crenated Cell SLIGHT, Elliptocytes MODERATE, Acanthocytes MODERATE, Sodium Level 137, Potassium Level 4.2, Chloride Level 106, Carbon Dioxide Level 22, Anion Gap 9, Blood Urea Nitrogen 27H, Creatinine 1.41H, Estimat Glomerular Filtration Rate 49, BUN/ Creatinine Ratio 19, Glucose Level 116H, Calcium Level 8.4L, Phosphorus Level 3.8, Magnesium Level 2.0 04/01/17 12:38: Glucometer 98 Microbiology 03/28/17 Fungal Culture - Preliminary, Resulted Yeast Species Assessment/Plan Assessment/Plan Assessment/Plan A 71 year old male with 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 Pulmonary embolism on Lovenox [facility] physican consulteded for medical management. IV fluids, pain, nausea meds. Tripple lumen catheter pulled out, patient is eating full meals. Will hold off on replacing at this time and hold tpn. Awaiting biopsy results from endoscopy. Clinical Quality Measures DVT/VTE Risk/Contraindication: Risk Factor Score Per Nursin RFS Level Per Nursing on Admit: 2=Moderate JULISA STOLL DO Apr 01, 2017 13:23
[2017-04-01 15:40] VITALS: BP 113/74
[2017-04-01 16:27] LABS: CALCIUM 8.3 MG/DL (8.5-10.1); CREATININE SERUM 1.4 MG/DL (0.60-1.30); POTASSIUM 4.3 MMOL/L (3.6-5.0)
[2017-04-01] MEDS ORDERED: SODIUM ACETATE IV SCH ×12 (17:00)
[2017-04-01] MEDS ORDERED: [UNRECOGNIZED DRUG - OTHER] IV SCH ×12 (17:00)
[2017-04-01] MEDS ORDERED: SODIUM CHLORIDE IV SCH ×12 (17:00)
[2017-04-01 19:29] VITALS: BP 100/66
[2017-04-02] MEDS: NS IV 1000 ML 1,000 ML IV SCH ×2 (00:15→06:19)
[2017-04-02 00:35] VITALS: BP 96/58
[2017-04-02] MEDS: ENOXAPARIN 60 MG/0.6 ML (LOVENOX) SYR SC SCH ×2 (01:08→12:02)
[2017-04-02] MEDS: RT-ALBUTEROL SULF 2.5 MG/3 ML PRE-MIX VIAL IH SCH ×4 (02:48→13:48)
[2017-04-02] MEDS: PIPERACILLIN/TAZOBACTAM 4.5 GM/NS 100 ML IVPB IV SCH ×6 (03:46→20:26)
[2017-04-02 03:47] VITALS: BP 108/64
[2017-04-02 07:12] LABS: ALBUMIN 2.4 GM/DL (3.2-4.5); BILIRUBIN,TOTAL 0.9 MG/DL (0.1-1.0); CALCIUM 8.2 MG/DL (8.5-10.1); CREATININE SERUM 1.36 MG/DL (0.60-1.30); MAGNESIUM 1.7 MG/DL (1.8-2.4); PHOSPHORUS 3.5 MG/DL (2.3-4.7); TOTAL PROTEIN 5.4 GM/DL (6.4-8.2)
[2017-04-02 08:00] VITALS: BP 106/58
[2017-04-02 08:47] LABS: BASOPHILS % (AUTO) 0 % (0-10); EOSINOPHILS % (AUTO) 0 % (0-10); LYMPHOCYTES # (AUTO) 0.9 X 10^3 (1.0-4.0); LYMPHOCYTES % (AUTO) 6 % (12-44); MEAN CORPUSCULAR HEMOGLOBIN 32 PG (25-34); MEAN CORPUSCULAR HGB CONC 31 G/DL (32-36); MEAN CORPUSCULAR VOLUME 105 FL (80-99); MEAN PLATELET VOLUME 12.1 FL (7.4-10.4); MONOCYTES # (AUTO) 2.2 X 10^3 (0.0-1.0); MONOCYTES % (AUTO) 13 % (0-12); NEUTROPHILS % (AUTO) 82 % (42-75); PLATELET COUNT 758 10^3/uL (130-400); RED BLOOD COUNT 2.67 10^6/uL (4.35-5.85); RED CELL DISTRIBUTION WIDTH 18.4 % (10.0-14.5); WHITE BLOOD COUNT 17.2 10^3/uL (4.3-11.0)
[2017-04-02] MEDS: PANTOPRAZOLE 40 MG/10 ML (PROTONIX) VIAL IV SCH ×2 (08:49→20:26)
[2017-04-02] MEDS: lisINopril 10 MG (PRINIVIL) TAB PO SCH (08:51)
[2017-04-02] MEDS: FLUCONAZOLE 100 MG/50 ML 50 ML IV SCH (08:51)
--- NOTE | 2017-04-02 09:28 | Progress Note (SOAP) ---
Subjective Subjective/Events-last exam Afebrile, no acute events. He states his pain is minimal. He is continuing to require supplemental oxygen, but at decreasing amount. He is more swollen today and his weight is up. Review of Systems Date Seen by Provider: Apr 02, 2017 Time Seen by Provider: 09:00 Objective Exam Last Set of Vital Signs Vital Signs Date Time Temp Pulse Resp B/P (MAP) Pulse Ox O2 Delivery O2 Flow Rate FiO2 04/02/17 09:17 94 Vapotherm 10.00 55 04/02/17 08:00 98.6 95 20 106/58 Capillary Refill : Less Than 3 SecondsLess Than 3 Seconds I&O Intake and Output 04/03/17 00:00 Intake Total 550 ml Output Total 300 ml Balance 250 ml Intake Oral 200 ml IV Total 350 ml Output Urine Total 300 ml General: Alert, No Acute Distress Lungs: Clear to Auscultation Heart: Regular Rate, No Murmurs Abdomen: Normal Bowel Sounds, Other (distended, mild to moderate LLQ ttp) Extremities: Other (1+ edema to lower legs) Neuro: Normal Speech Psych/Mental Status: Mental Status NL Results/Procedures Lab Laboratory Tests 04/01/17 12:38: Glucometer 98 04/01/17 16:02: Sodium Level 137, Potassium Level 4.3, Chloride Level 107, Carbon Dioxide Level 21, Anion Gap 9, Blood Urea Nitrogen 26H, Creatinine 1.40H, Estimat Glomerular Filtration Rate 50, BUN/Creatinine Ratio 19, Glucose Level 101, Calcium Level 8.3L 04/02/17 05:30: Glucometer 137H 04/02/17 06:03: Sodium Level 140, Potassium Level 4.0, Chloride Level 111H, Carbon Dioxide Level 20L, Anion Gap 9, Blood Urea Nitrogen 25H, Creatinine 1.36H, Estimat Glomerular Filtration Rate 52, BUN/Creatinine Ratio 18, Glucose Level 90, Calcium Level 8.2L, White Blood Count 17.2H, Red Blood Count 2.67L, Hemoglobin 8.6L, Hematocrit 28L, Mean Corpuscular Volume 105H, Mean Corpuscular Hemoglobin 32, Mean Corpuscular Hemoglobin Concent 31L, Red Cell Distribution Width 18.4H, Platelet Count 758H, Mean Platelet Volume 12.1H, Neutrophils (%) (Auto) 82H, Lymphocytes (%) (Auto) 6L, Monocytes (%) (Auto) 13H, Eosinophils (%) (Auto) 0, Basophils (%) (Auto) 0, Neutrophils # (Auto) 14.0H, Lymphocytes # (Auto) 0.9L, Monocytes # (Auto) 2.2H, Eosinophils # (Auto) 0.0, Basophils # (Auto) 0.0, Phosphorus Level 3.5, Magnesium Level 1.7L, Total Bilirubin 0.9, Aspartate Amino Transf (AST/SGOT) 38H, Alanine Aminotransferase (ALT/SGPT) 30, Alkaline Phosphatase 71, Total Protein 5.4L, Albumin 2.4L Microbiology 03/28/17 Fungal Culture - Preliminary, Resulted Yeast Species Assessment/Plan Assessment/Plan Plan SUBSEGMENTAL PE'S POSTOPERATIVELY SHORTNESS OF BREATH -CTA positive for PEs - will start lovenox 60mg q12h as treatment -can change to Eliquis or other PO anticoagulant when tolerating PO convincingly -volume overload is minimal, so no further doses of lasix -CXR and CTA not concerning for infection - pt on Zosyn for bowel coverage 04/01 - continue lovenox for now, can discuss bridging therapy with pharmacy tomorrow 04/02- given history of thrombocytosis and following with Hematology outpatient , will consult Heme for recommendations SIGMOID MASS -awaiting path results MALNUTRITIONAL WEIGHT LOSS, NONINTENTIONAL -on TPN per surgical team 04/01 - pt pulled his central line. do not believe TPN is indicated in patient taking total PO. ALLISON 04/01 - GFR down, will replace fluids. NS 500ml x2 h, then increase fluids to 150ml/h. recheck BMP at 1600. 04/02 - Creatinine trending down, increasing swelling, will hold IVF for now and monitor closely HTN -on home meds 04/01 - BP down today, could be volume depletion. holding antihypertensives for now. THROMBOCYTOSIS -likely acute phase reactant, increases risk for stroke 04/01 - improved 04/02- consult Heme as noted above LEUKOCYTOSIS 04/01 - likely related to PE's and stress, no fever to indicate continued infection, no left shift 04/02 - labs pending this am GI PROPH: IV Protonix Clinical Quality Measures DVT/VTE Risk/Contraindication: Risk Factor Score Per Nursin RFS Level Per Nursing on Admit: 2=Moderate ANTONY VILLARREAL MD Apr 02, 2017 9:28 am
[2017-04-02 09:34] LABS: ANISOCYTOSIS SLIGHT; EOSINOPHILS % (MANUAL) 1 %; LYMPHOCYTES % (MANUAL) 1 %; MICROCYTOSIS SLIGHT; NEUTROPHILS % (MANUAL) 85 %; POIKILOCYTOSIS SLIGHT; POLYCHROMASIA SLIGHT; SPHEROCYTES SLIGHT
--- NOTE | 2017-04-02 11:04 | Physical Therapy Evaluation ---
PT Evaluation-General Medical Diagnosis Admission Date Mar 25, 2017 at 05:10 Medical Diagnosis: Bowel Obstruction, Thrombosis Onset Date: Mar 25, 2017 Therapy Diagnosis Therapy Diagnosis: Debility Height/Weight Height (Feet): 5 Height (Inches): 7.00 Weight (Pounds): 150 Weight (Ounces): 0.0 Precautions Precautions/Isolations: Fall Prevention, Standard Precautions Weight Bear Status Right Lower Extremity: Right Full Weight Bearing Left Lower Extremity: Left Full Weight Bearing Referral Physician: Jaswinder Reason for Referral: Evaluation/Treatment Medical History Pertinent Medical History: CAD, Diverticulitis, GERD, Heart Failure, HTN, PVD, Renal Insufficiency Additional Medical History GI bleeding, GI ulcers, stomach resection Social History Home: Apartment Current Living Status: Other Family Entry Into Home: Stairs With Railing PT Steps Into Home: 2 Prior/Core FIM Prior Level of Function Functional [place] Measure 0=Not Assessed/NA 4=Minimal Assistance 1=Total Assistance 5=Supervision or Setup 2=Maximal Assistance 6=Modified [place] 3=Moderate Assistance 7=Complete [place] Bed Mobility: 7 Transfers (B,C,W/C) (FIM): 7 Gait: 7 Locomotion: 7 PT Evaluation-Current Subjective Patient states he is feeling better today. He repeatedly speaks about the Vapotherm being used to help him with breathing. He reports some inability to tell when he is having bowel movements. He states he is still feeling weak. Pain Numeric Pain Scale: 0-No Pain Location: No Pain Reported Pt/Family Goals Patient reports he wants to get whatever is wrong with him figured out so he can go back home. Objective Patient Orientation: Person, Place, Situation Problem Solving: Fair Attachments: Oxygen, Cheng Catheter 10.0 L of O2 ROM/Strength ROM Upper Extremities WNL ROM Lower Extremities WNL Strength Upper Extremities WNL Strength Lower Extremities 4/5 all LE muscle groups; he states that legs are noticeably weaker than normal Integumentary/Posture Integumentary intact Bowel Incontinence: Yes Bladder Incontinence: Cheng Cath Neuromuscular (Tone, Coordination, Reflexes) Tone, coordination, and reflexes are all normal. Sensory Vision: Wears Glasses Hearing: Functional Hand Dominance: Right Sensation Right Upper Extremit: Intact Sensation Left Upper Extremity: Intact Sensation Right Lower Extremit: Intact Sensation Left Lower Extremity: Intact Transfers Functional [place] Measure 0=Not Assessed/NA 4=Minimal Assistance 1=Total Assistance 5=Supervision or Setup 2=Maximal Assistance 6=Modified [place] 3=Moderate Assistance 7=Complete [place] Transfers (B, C, W/C) (FIM): 5 Scootin Rollin Supine to/from Sit: 5 Sit to/from Stand: 5 Patient performed all observed transfers with SBA from PT. Gait Mode of Locomotion: Walk Anticipated Mode of Locomotion: Walk Gait (FIM): 1 Distance (FIM): 1=up to 49 ft Distance: 10' Gait Level of Assist: 5 Gait Persons Needed: 1 Gait Assistive Device: FWW Comments/Gait Description Patient ambulated from bed to chair. He is currently limited by pulmonary issues as well as weakness. Balance Sitting Static: Normal Sitting Dynamic: Normal Standing Static: Normal Standing Dynamic: Normal Assessment/Needs Patient currently limited by LE weakness and aerobic capacity issues. Pt will progress patient activity tolerance as current status improves. Rehab Potential: Good PT Usp Goals Side Panel Padder Goals PT Usp Goals Time Frame: Apr 09, 2017 Transfers (B,C,W/C) (FIM): 6 Gait (FIM): 2 Gait distance (FIM): 1=945-74 ft Distance: 100' Gait Level of Assist: 6 Gait Assistive Device: FWW PT Plan Problem List Problem List: Activity Tolerance, Functional Strength, Safety, Balance, Gait, Bed Mobility Treatment/Plan Treatment Plan: Continue Plan of Care Treatment Plan: Functional Activity Perri, Functional Strength, Gait, Therapeutic Exercise Treatment Duration: Apr 09, 2017 Frequency: 6 times per week Estimated Hrs Per Day: .25 hour per day Patient and/or Family Agrees t: Yes Safety Risks/Education Patient Education: Gait Training, Safety Issues Teaching Recipient: Patient Teaching Methods: Demonstration, Discussion Response to Teaching: Verbalize Understanding, Return Demonstration Discharge Recommendations Therapy D/C Recommendations: Home w/ Family Support Equpiment Recommendations-D/C: Front Wheeled Walker Time/GCodes Time In: 1035 Time Out: 1051 Total Billed Treatment Time: 16 Total Billed Treatment 1 visit EVM 16 min KAITLYN KAISER PT Apr 02, 2017 11:04
--- NOTE | 2017-04-02 11:12 | Oncology Consultation ---
Visit Information Visit Information Date of Admission Mar 25, 2017 at 05:10 Attending Physician Anish Contreras MD Admitting Physician Nirmala,[facility] Chief Complaint Pulmonary emboli (PE) during hospital stay. h/o essential thrombocytosis (ET) and superficial thrombosis of the lower extremity Recent diagnosis of colon mass with nausea and dehydration Interval History Mr. Brown is a 71 year old while man known to me for this ET on Hydrea treatment. He also had chronic anemia at the clinic but stool occult blood tests were negative in the past. He was admitted this time due to lower abdominal pain, nausea vomiting and dehydration. Dr Contreras did GI scope work up which showed a colon mass, biopsy result pending at this point. Over the weekend , he developed hypoxia O2 sat 70s and CTA showed bilateral PE. He was put on Lovenox 60mg bid. We are called to help manage his hypercoagulopathy. Pt has no fever. He is able to eat some and had bowel movement yesterday. Abdominal pain is also better. Last colonoscopy was a year ago and small polyps removed. H/o diverticulitis in the past. I consulted the patient on: 04/02/17 11:05 Time Seen by Provider: 10:30 Constitutional: weakness, weight loss EENTM: see HPI Respiratory: short of breath Cardiovascular: see HPI Gastrointestinal: see HPI Genitourinary: no symptoms reported Musculoskeletal: no symptoms reported Health Status Allergies Coded Allergies: No Known Drug Allergies (Verified , 07/21/09) Home Medications Aspirin (Aspirin EC) 81 Mg Tablet., 81 MG PO DAILY, (Reported) Folic Acid (Folic Acid) 1 Mg Tablet, 1 MG PO DAILY, (Reported) Iron Polysaccharide Complex (Poly-Iron) 150 Mg Capsule, 150 MG PO BID, (Reported ) Lisinopril (Lisinopril) 10 Mg Tablet, 10 MG PO DAILY, (Reported) Metoprolol Succinate (Metoprolol Succinate) 25 Mg Tab.er.24h, 25 MG PO DAILY, ( Reported) Pantoprazole Sodium (Pantoprazole Sodium) 40 Mg Tablet., 40 MG PO DAILY, ( Reported) QHW-Mnzyph-Lgnuka Hx Patient Social History Alcohol Use: Denies Use Recreational Drug Use: No Smoking Status: Never a Smoker 2nd Hand Smoke Exposure: No Recent Foreign Travel: No Contact w/other who traveled: No Recent Infectious Disease Expo: No Recent Hopitalizations: No Physical Abuse Screen: No Sexual Abuse: No Immunizations Up To Date Tetanus Booster (TDap): Unknown Physical Exam Vital Signs Vital Sign - Last 12Hours 03/28/17 03/30/17 03/30/17 00:00 08:00 10:18 Temp 97.6 Pulse 63 Resp 19 B/P (MAP) 148/75 Pulse Ox 94 O2 Delivery Room Air O2 Flow Rate 4.00 FiO2 36 Capillary Refill : Less Than 3 SecondsLess Than 3 Seconds General Appearance: No Apparent Distress, Chronically ill, Thin HEENT: PERRL/EOMI Neck: Non Tender, Supple Respiratory: Chest Non Tender, No Accessory Muscle Use, No Respiratory Distress Cardiovascular: Regular Rate, Rhythm Gastrointestinal: Soft, Tenderness Extremity: Non Tender, No Calf Tenderness, Pedal Edema Neurologic/Psychiatric: Alert, Oriented x3 Data Review Labs Laboratory Tests 04/03/17 05:40 Laboratory Tests 03/31/17 12:06: Glucometer 184H 03/31/17 17:45: Glucometer 188H 03/31/17 22:58: Glucometer 140H 04/01/17 01:23: Glucometer 127H 04/01/17 04:58: White Blood Count 19.4H, Red Blood Count 2.75L, Hemoglobin 8.8L, Hematocrit 28L , Mean Corpuscular Volume 103H, Mean Corpuscular Hemoglobin Concent 31L, Red Cell Distribution Width 17.9H, Platelet Count 668H, Mean Platelet Volume 12.0H, Neutrophils (%) (Auto) 80H, Lymphocytes (%) (Auto) 4L, Monocytes (%) (Auto) 15H , Neutrophils # (Auto) 15.6H, Lymphocytes # (Auto) 0.8L, Monocytes # (Auto) 2.9H , Blood Urea Nitrogen 27H, Creatinine 1.41H, Glucose Level 116H, Calcium Level 8.4L 04/01/17 12:38: 04/01/17 16:02: Blood Urea Nitrogen 26H, Creatinine 1.40H, Calcium Level 8.3L 04/02/17 05:30: Glucometer 137H 04/02/17 06:03: White Blood Count 17.2H, Red Blood Count 2.67L, Hemoglobin 8.6L, Hematocrit 28L , Mean Corpuscular Volume 105H, Mean Corpuscular Hemoglobin Concent 31L, Red Cell Distribution Width 18.4H, Platelet Count 758H, Mean Platelet Volume 12.1H, Neutrophils (%) (Auto) 82H, Lymphocytes (%) (Auto) 6L, Monocytes (%) (Auto) 13H , Neutrophils # (Auto) 14.0H, Lymphocytes # (Auto) 0.9L, Monocytes # (Auto) 2.2H , Chloride Level 111H, Carbon Dioxide Level 20L, Blood Urea Nitrogen 25H, Creatinine 1.36H, Calcium Level 8.2L, Magnesium Level 1.7L, Aspartate Amino Transf (AST/SGOT) 38H, Total Protein 5.4L, Albumin 2.4L 04/02/17 06:52: 04/03/17 05:40: White Blood Count 14.7H, Red Blood Count 2.60L, Hemoglobin 8.4L, Hematocrit 27L , Mean Corpuscular Volume 104H, Mean Corpuscular Hemoglobin Concent 31L, Red Cell Distribution Width 17.6H, Platelet Count 791H, Mean Platelet Volume 11.8H, Neutrophils (%) (Auto) 81H, Lymphocytes (%) (Auto) 7L, Neutrophils # (Auto) 11.8H, Monocytes # (Auto) 1.8H, Chloride Level 109H, Carbon Dioxide Level 20L, Blood Urea Nitrogen 23H, Creatinine 1.32H, Calcium Level 8.3L, Magnesium Level 1.7L, Glucose Level 110H Impression & Plan Impression & Plan IMP: 1. Bilateral PE on Lovenox 60mg bid, clinical improving. 2. Essential thrombocytosis, Plt in 800k ranges. 3. Colon mass, biopsy pending 4. N/V dehydration on IVF. Pt is no longer on TPN due to his confusion and pulled out the central line while he was hypoxia and confusion. 5. Leukocytosis, reactive. His WBC was 8.8 3 days ago. 6. BP low. 7. Renal insufficiency, acute. Plan: 1. If you do plan to take him to surgery, then change Lovenox to Heparin drip. Since he had Lovenox now, I would load him with half loading dose at 40units/kg then 18unit/kg/hr CI, adjust dose according to his PTT levels. If you want to medically treat him and wait for him to be more stabilized from PE and his overall performance, you can keep him on current dose of Lovenox, then convert to Eliquis (in consideration of renal insufficiency) 10mg PO bid then 5mg bid on discharge. 2. I will f/u colon mass biopsy result 3. I would stop Lisinopril since his BP is on the low side. 4. We can watch his Hb. No indication for transfusion at this point. 5. Hold off Hydrea for now. ANNE TALLEY MD Apr 02, 2017 11:12
[2017-04-02 12:00] VITALS: BP 115/64
[2017-04-02 15:44] VITALS: BP 113/70
--- NOTE | 2017-04-02 16:20 | Progress Note (SOAP) ---
Subjective Date Seen by Provider: Apr 02, 2017 Time Seen by Provider: 16:00 Subjective/Events-last exam previous events noted. small bilateral PE. improving considerably on bid lovenox. hx essential thrombocytosis. 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 will eventually need sigmoidectomy vs. LAR. most likely wait 6-12 weeks. Objective Exam Vital Signs Date Time Temp Pulse Resp B/P (MAP) Pulse Ox O2 Delivery O2 Flow Rate FiO2 04/02/17 15:44 98.0 92 18 113/70 100 High Flow N/C 5.00 04/02/17 13:48 High Flow N/C 5.00 04/02/17 12:00 99.1 94 20 115/64 95 Vapotherm 70.00 30.00 04/02/17 09:17 94 Vapotherm 10.00 55 04/02/17 08:00 98.6 95 20 106/58 95 Vapotherm 70.00 30.00 04/02/17 08:00 Vapotherm 10.00 04/02/17 03:47 99.1 92 16 108/64 98 Vapotherm 55.00 10.00 04/02/17 02:48 94 Vapotherm 10.00 60 04/02/17 00:35 98.2 90 18 96/58 98 Vapotherm 70.00 30.00 04/01/17 22:07 96 Vapotherm 10.00 65 04/01/17 20:09 Vapotherm 10.00 65 04/01/17 19:29 99.8 95 18 100/66 100 Vapotherm 70.00 30.00 04/01/17 19:11 98 Vapotherm 10.00 70 I & O 04/03/17 07:00 Intake Total 1070 ml Output Total 300 ml Balance 770 ml Capillary Refill : Less Than 3 SecondsLess Than 3 Seconds General Appearance: No Apparent Distress HEENT: PERRL/EOMI Neck: Full Range of Motion Respiratory: Chest Non Tender, Decreased Breath Sounds, Rhonci Cardiovascular: Regular Rate, Rhythm Gastrointestinal: normal bowel sounds, soft Extremity: Normal Capillary Refill Neurologic/Psychiatric: Alert, Oriented x3 Skin: Normal Color Lymphatic: No Adenopathy Results Lab Laboratory Tests 04/02/17 05:30: Glucometer 137H 04/02/17 06:03: White Blood Count 17.2H, Red Blood Count 2.67L, Hemoglobin 8.6L, Hematocrit 28L , Mean Corpuscular Volume 105H, Mean Corpuscular Hemoglobin 32, Mean Corpuscular Hemoglobin Concent 31L, Red Cell Distribution Width 18.4H, Platelet Count 758H, Mean Platelet Volume 12.1H, Neutrophils (%) (Auto) 82H, Lymphocytes (%) (Auto) 6L, Monocytes (%) (Auto) 13H, Eosinophils (%) (Auto) 0, Basophils (% ) (Auto) 0, Neutrophils # (Auto) 14.0H, Lymphocytes # (Auto) 0.9L, Monocytes # ( Auto) 2.2H, Eosinophils # (Auto) 0.0, Basophils # (Auto) 0.0, Neutrophils % ( Manual) 85, Lymphocytes % (Manual) 1, Monocytes % (Manual) 13, Eosinophils % ( Manual) 1, Nucleated Red Blood Cells 1, Polychromasia SLIGHT, Poikilocytosis SLIGHT, Anisocytosis SLIGHT, Microcytosis SLIGHT, Macrocytosis SLIGHT, Spherocytes SLIGHT, Elliptocytes SLIGHT, Acanthocytes SLIGHT, Sodium Level 140, Potassium Level 4.0, Chloride Level 111H, Carbon Dioxide Level 20L, Anion Gap 9 , Blood Urea Nitrogen 25H, Creatinine 1.36H, Estimat Glomerular Filtration Rate 52, BUN/Creatinine Ratio 18, Glucose Level 90, Calcium Level 8.2L, Phosphorus Level 3.5, Magnesium Level 1.7L, Total Bilirubin 0.9, Aspartate Amino Transf ( AST/SGOT) 38H, Alanine Aminotransferase (ALT/SGPT) 30, Alkaline Phosphatase 71, Total Protein 5.4L, Albumin 2.4L Microbiology 03/28/17 Fungal Culture - Preliminary, Resulted Yeast Species Assessment/Plan Assessment/Plan Assess & Plan/Chief Complaint 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 continue lovenox. allow hematology to decide on mcc anticoagulation. SWB evaluation. while in SWB will plan for central line and TPN. Clinical Quality Measures DVT/VTE Risk/Contraindication: Risk Factor Score Per Nursin RFS Level Per Nursing on Admit: 2=Moderate MIKE OTOOLE MD Apr 02, 2017 16:20
[2017-04-02] MEDS: RT-ALBUTEROL/IPRATROPIUM 3 ML (DUONEB) VIAL INH SCH (19:16)
[2017-04-02 21:00] VITALS: BP 120/77
[2017-04-03] VITALS: BP 118/68
[2017-04-03] MEDS: ENOXAPARIN 60 MG/0.6 ML (LOVENOX) SYR SC SCH ×2 (00:23→13:29)
[2017-04-03] MEDS: RT-ALBUTEROL/IPRATROPIUM 3 ML (DUONEB) VIAL INH SCH ×2 (02:04→09:58)
[2017-04-03 04:15] VITALS: BP 120/64
[2017-04-03] MEDS: PIPERACILLIN/TAZOBACTAM 4.5 GM/NS 100 ML IVPB IV SCH ×4 (04:18→13:30)
[2017-04-03 06:13] LABS: BASOPHILS # (AUTO) 0.1 10^3/uL (0.0-0.1); BASOPHILS % (AUTO) 0 % (0-10); EOSINOPHILS % (AUTO) 0 % (0-10); LYMPHOCYTES % (AUTO) 7 % (12-44); MEAN CORPUSCULAR HEMOGLOBIN 32 PG (25-34); MEAN CORPUSCULAR HGB CONC 31 G/DL (32-36); MEAN CORPUSCULAR VOLUME 104 FL (80-99); MEAN PLATELET VOLUME 11.8 FL (7.4-10.4); MONOCYTES # (AUTO) 1.8 X 10^3 (0.0-1.0); MONOCYTES % (AUTO) 12 % (0-12); NEUTROPHILS # (AUTO) 11.8 X 10^3 (1.8-7.8); NEUTROPHILS % (AUTO) 81 % (42-75); PLATELET COUNT 791 10^3/uL (130-400); RED CELL DISTRIBUTION WIDTH 17.6 % (10.0-14.5); WHITE BLOOD COUNT 14.7 10^3/uL (4.3-11.0)
[2017-04-03 06:36] LABS: CALCIUM 8.3 MG/DL (8.5-10.1); CREATININE SERUM 1.32 MG/DL (0.60-1.30); MAGNESIUM 1.7 MG/DL (1.8-2.4)
[2017-04-03 08:00] VITALS: BP 119/72
[2017-04-03] MEDS: FLUCONAZOLE 100 MG/50 ML 50 ML IV SCH (09:07)
[2017-04-03] MEDS: PANTOPRAZOLE 40 MG/10 ML (PROTONIX) VIAL IV SCH (09:07)
[2017-04-03] MEDS: lisINopril 10 MG (PRINIVIL) TAB PO SCH (09:07)
--- NOTE | 2017-04-03 11:59 | Physical Therapy Daily Note ---
PT Daily Note-Current Subjective Pt sitting in recliner upon arrival. Pt agrees to PT. Pain Numeric Pain Scale: 3 Location Body Site: Abdomen Pain Description: Ache, Tightness Mental Status Patient Orientation: Person, Place, Situation Attachments: Oxygen (1L), Cheng Catheter Transfers Functional [place] Measure 0=Not Assessed/NA 4=Minimal Assistance 1=Total Assistance 5=Supervision or Setup 2=Maximal Assistance 6=Modified [place] 3=Moderate Assistance 7=Complete IndependenceIRFPAI Quality Coding Scale 6 Independent with activity with or without an assistive device 5 Patient requires set up or clean up by helper. Patient completes activity by themselves 4 Supervision or touching assist (CGA). [place] provide cues , steadying assist 3 The helper provides less than half the effort to complete the activity 2 The helper provides more than half the effort to complete the activity 1 Dependent. The helper does all the effort to complete an activity 7 Patient refused to complete or attempt activity 9 The patient did not perform the activity before the current illness or injury 88 Not attempted due to Medical conditions or safety concerns Scootin Sit to/from Stand: 5 Weight Bearing Right Lower Extremity: Right Full Weight Bearing Left Lower Extremity: Left Full Weight Bearing Gait Training Distance (FIM): 3=150 ft Distance: 150' Gait Level of Assist: 5 Gait Persons Needed: 1 Gait Assistive Device: FWW Pt has slow but steady catrina, no LOB. Exercises Seated Therapy Exercises: Ankle pumps, Long arc quads, Hip flexion, Kicking activity Seated Reps: 20 Treatments Pt transfers from recliner to standing using FWW at SBA. Pt ambulates in hallway using FWW at SBA. Pt returns to room to rest in recliner followed by Seated Ex in recliner. Pt rests at end of tx with all needs met. Assessment Current Status: Good Progress Pt suffers from moments of confusion and fatigue. Pts strength and endurance is improving. PT Sensor Technician Goals Sensor Technician Goals PT Sensor Technician Goals Time Frame: Apr 09, 2017 Transfers (B,C,W/C) (FIM): 6 Gait (FIM): 2 Gait distance (FIM): 1=353-17 ft Distance: 100' Gait Level of Assist: 6 Gait Assistive Device: FWW PT Plan Problem List Problem List: Activity Tolerance, Functional Strength, Safety, Balance, Gait, Transfer Treatment/Plan Treatment Plan: Continue Plan of Care Treatment Plan: Functional Activity Perri, Functional Strength, Gait, Therapeutic Exercise Treatment Duration: Apr 09, 2017 Frequency: 6 times per week Estimated Hrs Per Day: .25 hour per day Patient and/or Family Agrees t: Yes Safety Risks/Education Patient Education: Gait Training, Transfer Techniques, Correct Positioning, Safety Issues Teaching Recipient: Patient Teaching Methods: Discussion Response to Teaching: Verbalize Understanding Time/GCodes Time In: 1123 Time Out: 1146 Total Billed Treatment Time: 23 Total Billed Treatment 1, GT (12m), EX (11m) G Codes Necessary: JENNIFER Ellis RELIEF DRILLER Apr 03, 2017 11:59
[2017-04-03 12:00] VITALS: BP 120/67
[2017-04-03] MEDS ORDERED: TPN IV SCH (13:00)
--- NOTE | 2017-04-03 13:15 | Progress Note-Post Operative ---
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 Anesthesia Type local Estimated Blood Loss Estimated blood loss (mL): minimal Specimens/Packing Specimens Removed none MIKE OTOOLE MD Apr 03, 2017 1:15 pm
--- NOTE | 2017-04-03 13:18 | Progress Note (SOAP) ---
Subjective Date Seen by Provider: Apr 03, 2017 Time Seen by Provider: 13:00 Subjective/Events-last exam doing ok. tolerating liquids and small amounts solids. having BM's. pain controlled. Objective Exam Vital Signs Date Time Temp Pulse Resp B/P (MAP) Pulse Ox O2 Delivery O2 Flow Rate FiO2 04/03/17 09:58 98 Nasal Cannula 3.00 04/03/17 08:00 Vapotherm 10.00 04/03/17 08:00 98.7 76 18 119/72 99 High Flow N/C 4.00 04/03/17 04:15 98.2 75 18 120/64 99 High Flow N/C 4.00 04/03/17 02:04 97 High Flow N/C 4.00 04/03/17 00:00 97.4 86 19 118/68 99 High Flow N/C 4.00 04/02/17 21:00 97.9 86 20 120/77 99 High Flow N/C 4.00 04/02/17 20:00 Nasal Cannula 5.00 04/02/17 19:17 98 High Flow N/C 5.00 04/02/17 16:13 95 100 04/02/17 15:44 98.0 92 18 113/70 100 High Flow N/C 5.00 04/02/17 13:48 High Flow N/C 5.00 I & O 04/04/17 07:00 Intake Total 100 ml Balance 100 ml Capillary Refill : Less Than 3 SecondsLess Than 3 Seconds General Appearance: No Apparent Distress HEENT: PERRL/EOMI Neck: Full Range of Motion Respiratory: Chest Non Tender, Lungs Clear Cardiovascular: Regular Rate, Rhythm Gastrointestinal: normal bowel sounds, non tender, soft Extremity: Normal Capillary Refill Neurologic/Psychiatric: Alert, Oriented x3 Skin: Normal Color Lymphatic: No Adenopathy Results Lab Laboratory Tests 04/03/17 05:40: White Blood Count 14.7H, Red Blood Count 2.60L, Hemoglobin 8.4L, Hematocrit 27L , Mean Corpuscular Volume 104H, Mean Corpuscular Hemoglobin 32, Mean Corpuscular Hemoglobin Concent 31L, Red Cell Distribution Width 17.6H, Platelet Count 791H, Mean Platelet Volume 11.8H, Neutrophils (%) (Auto) 81H, Lymphocytes (%) (Auto) 7L, Monocytes (%) (Auto) 12, Eosinophils (%) (Auto) 0, Basophils (%) (Auto) 0, Neutrophils # (Auto) 11.8H, Lymphocytes # (Auto) 1.0, Monocytes # ( Auto) 1.8H, Eosinophils # (Auto) 0.0, Basophils # (Auto) 0.1, Sodium Level 138, Potassium Level 4.0, Chloride Level 109H, Carbon Dioxide Level 20L, Anion Gap 9 , Blood Urea Nitrogen 23H, Creatinine 1.32H, Estimat Glomerular Filtration Rate 53, BUN/Creatinine Ratio 17, Glucose Level 110H, Calcium Level 8.3L, Magnesium Level 1.7L Microbiology 03/28/17 Fungal Culture - Preliminary, Resulted Erica Glabrata Assessment/Plan Assessment/Plan Assess & Plan/Chief Complaint 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 continue lovenox. 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 SWB evaluation. while in SWB will plan for central line and TPN. Clinical Quality Measures DVT/VTE Risk/Contraindication: Risk Factor Score Per Nursin RFS Level Per Nursing on Admit: 2=Moderate MIKE OTOOLE MD Apr 03, 2017 1:18 pm
--- NOTE | 2017-04-03 13:37 | Diagnostic Imaging Report ---
EXAMINATION: Portable upright radiograph of the chest. INDICATION: Central line placement. COMPARISON: 03/30/17. FINDINGS: There is a left subclavian central line with the tip at the upper SVC level. There is no pneumothorax. There is moderate left pleural effusion with left basilar infiltrates or atelectasis. There is moderate cardiomegaly with minimal vascular congestion. The mediastinum and tang appear unremarkable. There are surgical clips seen in the upper abdomen. IMPRESSION: Left basilar infiltrate or atelectasis and moderate left pleural effusion. Cardiomegaly with minimal vascular congestion. Dictated by: Dictated on workstation # [id number]
[2017-04-03 13:40] LABS: INR 1.1 (0.8-1.4); PROTHROMBIN TIME PATIENT 14.1 SEC (12.2-14.7)
[2017-04-03 13:51] LABS: PHOSPHORUS 2.6 MG/DL (2.3-4.7)
--- NOTE | 2017-04-03 15:20 | Occupational Therapy Eval ---
OT Evaluation-General/PLF Medical Diagnosis Admission Date Apr 03, 2017 Medical Diagnosis: Bowel Obstruction, Thrombosis Onset Date: Mar 25, 2017 Therapy Diagnosis Therapy Diagnosis: decr self care, weakness, decr act tolerance, decr funct mobility Height/Weight Height (Feet): 5 Height (Inches): 7.00 Weight (Pounds): 156 Weight (Ounces): 4.8 Precautions Precautions/Isolations: Fall Prevention, Standard Precautions Safety Interventions: Bed Exit Alarm Referral Physician: Jaswinder Referral Reason: Evaluation/Treatment Medical History Pertinent Medical History: Arthritis, CAD, Diverticulitis, GERD, Heart Failure , HTN, PVD, Renal Insufficiency Additional Medical History Ulcers and GI bleeds, stomach resection for ulcers. R THR. Pneumonia. Chronic edema. BPH. Rodrigues's esophagus. Anemia. Hiatal hernia. Skin cancer Current History Pt admitted to acute care with abdominal pain and cramping. Found to have bowel obstruction and diverticulitis. Also PE Reviewed History: Yes Social History Home: Apartment Current Living Status: Other Family (son and grandson) Entry Into Home: Stairs With Railing Steps Into Home: 2 ADL-Prior Level of Function ADL PLOF Comments Pt reported that he was previously able to manage his basic self care. He is retired and still drives. OT Current Status Subjective Pt seen in room, up in bed, agreeable to OT. Pt reported some discomfort in L upper arm from IV inserted today but did not rate pain Appearance Alert, cooperative Mental Status/Objective Attachments: Central Line, Rivera Catheter, IV, Oxygen (1L/min nc) Current Glasses/Contacts: Yes Hearing Aids: No Dentures/Partials: Yes Hand Dominance: Right Upper Extremity ROM Grossly WFL but pt reluctant to move at L shoulder due to recent procedure Upper Extremity Sensation Pt reported no problems Upper Extremity Strength Grossly 4/5 bilat ADL-Treatment ADL-Current Pt was reluctant to get up today because he had a procedure on L upper arm this morning and it was sore. Functional [place] Measure 0=Not Assessed/NA 4=Minimal Assistance 1=Total Assistance 5=Supervision or Setup 2=Maximal Assistance 6=Modified [place] 3=Moderate Assistance 7=Complete IndependenceIRFPAI Quality Coding Scale 6 Independent with activity with or without an assistive device 5 Patient requires set up or clean up by helper. Patient completes activity by themselves 4 Supervision or touching assist (CGA). [place] provide cues , steadying assist 3 The helper provides less than half the effort to complete the activity 2 The helper provides more than half the effort to complete the activity 1 Dependent. The helper does all the effort to complete an activity 7 Patient refused to complete or attempt activity 9 The patient did not perform the activity before the current illness or injury 88 Not attempted due to Medical conditions or safety concerns Eating (FIM): 5 (Per pt report) Eating (QC): 5 Grooming (FIM): 5 (Per pt report) Oral Hygiene (QC): 5 (dentures. per pt report) Toileting (FIM): 1 (Pt dependant with [facility]. Reported he tries to wipe but has nurses finish) Toileting Hygiene (QC): 1 Toilet/Commode Transfer (FIM): 4 (CGA to BSC per pt report) Toilet Transfer (QC): 4 (CGA per pt report) Pt left up in bed, all needs met. Education OT Patient Education: Purpose of tx/functional activities, Rehab process Teaching Recipient: Patient Teaching Methods: Discussion Response to Teaching: Verbalize Understanding OT Senior Care Goals [place] Consultant Goals Time Frame: Apr 17, 2017 Eating (FIM): 6 Eating (QC): 6 Groomin Oral Hygiene (QC): 6 Bathing(FIM): 5 Upper Body Dressing(FIM): 5 Lower Body Dressing(FIM): 5 Toileting(FIM): 6 Toileting Hygiene (QC): 6 Toilet/Commode Transfer(FIM): 6 Toilet/Commode Transfer (QC): 6 Shower Transfer(FIM): 5 Additional Goals: 1-Demonstrate ADL Tasks, 2-Verbalize Understanding, 3- ImproveStrength/Perri 1=Demonstrate adherence to instructed precautions during ADL tasks. 2=Patient will verbalize/demonstrate understanding of assistive devices/ modifications for ADL. 3=Patient will improve strength/tolerance for activity to enable patient to perform ADL's. OT Education/Plan Problem List/Assessment Assessment: Decreased Activ Tolerance, Decreased UE Strength, Dependent Transfers, Impaired Self-Care Skills, Restricted Funct UE ROM Pt would benefit from skilled OT to increase his independence in basic self care and to decrease caregiver burden Discharge Recommendations Plan/Recommendations: Continue POC Treatment Plan/Plan of Care Treatment,Training & Education: Yes Patient would benefit from OT for education, treatment and training to promote independence in ADL's, mobility, safety and/or upper extremity function for ADL' s. Plan of Care: ADL Retraining, Functional Mobility, UE Funct Exercise/Act Treatment Duration: Apr 17, 2017 Frequency: 5 times per week Estimated Hrs Per Day: .5 hour per day Agreement: Yes Rehab Potential: Good Time/GCodes Start Time: 14:45 Stop Time: 15:00 Total Time Billed (hr/min): 15 Billed Treatment Time visit, 15 minutes evaluation moderate intensity SRIDEVI LIVE OT Apr 03, 2017 15:20
--- NOTE | 2017-04-03 23:30 | OPERATIVE REPORT ---
DATE OF SERVICE: 04/03/2017 ATTENDING PRIMARY CARE PHYSICIAN: [facility]. PREPROCEDURE DIAGNOSIS: Near obstructing sigmoid colonic stricture versus neoplasm. POSTPROCEDURE DIAGNOSIS: Near obstructing sigmoid colonic stricture versus neoplasm. PROCEDURE: Placement of left subclavian central venous catheter. SURGEON: Mike Otoole MD ANESTHESIA: Local. ESTIMATED BLOOD LOSS: Minimal. DISPOSITION: The patient tolerated the procedure well. INDICATIONS: The patient is a 71-year-old male with crampy abdominal pain on a recurrent basis. He has been having this issue over the past year. At this time around he was admitted due to this pain as well as nausea and vomiting. He does have a history of diverticulitis. Last colonoscopy was one year ago where a polyp was identified and found to be benign. A CT scan was performed on this admission, which did show thickening of the wall of the sigmoid colon which may indicate diverticulitis; however, due to the characteristics of the lesion, neoplasm could not be ruled out as well. There are also dilated loops of small bowel consistent with a partial small-bowel obstruction most likely secondary to large bowel partial obstruction. A central venous catheter was placed. He was placed on TPN; however, he also does have history of essential thrombocytosis and did develop shortness of breath and a CT scan of the chest was performed, which did show small bilateral pulmonary emboli. During this time frame, he did have an episode of delirium and he did inadvertently removed his central venous catheter. He continues to be weak and required nutrition. We will hold off on colonic resection right now, for he is not completely obstructed as well as a recent pulmonary embolism. He is currently on anticoagulation with therapeutic Lovenox. He will continue with anticoagulation for the next 3 months and in the time being we will place another central venous catheter and continue with antibiotics as well as continue nutritional support with TPN. DESCRIPTION OF PROCEDURE: The chest and neck were prepped and draped in standard surgical fashion. A 1% lidocaine was used to anesthetize the overlying skin in the left subclavian region. The left subclavian vein was then cannulated withdrawing the venous blood. A guidewire was then inserted without any resistance. The needle was then removed and a small incision made using an 11 blade. A track was then created using a venous dilator. A triple lumen central venous catheter was then placed over the guidewire using the Seldinger technique. The guidewire was removed and all three ports kevyn venous blood and flushed and saline pushed in without any resistance. The catheter was then sutured to the skin using 3-0 silk sutures. The catheter was then cleaned and covered with sterile gauze followed by Op-Site. The patient tolerated the procedure well. We will get a post-procedure chest x-ray. Job ID: [id number] DocumentID: [id number] Dictated Date: 04/03/2017 13:24:42 Hardware Developer Date: 04/03/2017 22:55:17 Dictated By: MIKE OTOOLE MD
--- NOTE | 2017-04-04 08:01 | DISCHARGE SUMMARY ---
DATE OF SERVICE: ATTENDING PRIMARY CARE PHYSICIAN: [facility]. ADMISSION DIAGNOSES: Abdominal pain and nausea and vomiting. DISCHARGE DIAGNOSES: Diverticular stricture, pulmonary embolism. OTHER DIAGNOSES: Coronary artery disease, congestive heart failure, peripheral vascular disease, essential thrombocytosis, history of deep venous thrombosis, hypercholesterolemia, hypertension, renal insufficiency, history of diverticulosis and diverticulitis, history of peptic ulcer disease, history of Rodrigues's esophagus. PRINCIPAL PROCEDURE: EGD with biopsy sigmoidoscopy with biopsy. COMPLICATIONS: Pulmonary embolism. DISPOSITION: Swing bed status in stable condition. INDICATIONS: The patient is a 71-year-old male who we have seen before in the past. He has had intermittent episodes of lower quadrant abdominal pain and he did undergo a colonoscopy by us in the past and was found to have diverticulosis. He did have another colonoscopy by another surgeon and a polyp was identified and biopsied and found to be benign. He also was admitted for diverticulitis identified by physical examination history as well as CT scan 2 months previous. He developed similar symptoms of left lower quadrant abdominal pain followed by nausea and vomiting and dehydration. PAST MEDICAL HISTORY: Coronary artery disease, CHF, peripheral vascular disease, history of DVT, hypercholesterolemia, hypertension, renal insufficiency, history of peptic ulcer disease, history of gastroesophageal reflux disease and Rodrigues's esophagus, history of diverticulosis and diverticulitis. PAST SURGERIES: Exploratory laparotomy, gastrectomy, and Billroth II reconstruction, and cardiac catheterization. ALLERGIES: No known drug allergies. MEDICATIONS: Anagrelide 0.5 mg b.i.d., aspirin 81 mg daily, folic acid 1 mg daily, furosemide 20 mg daily, hydroxyurea 500 mg daily, iron 150 mg b.i.d., lisinopril 10 mg daily, metoprolol 25 mg daily, Protonix 40 mg daily, and potassium 10 mEq daily. SOCIAL HISTORY: Negative smoke. Negative alcohol. FAMILY HISTORY: Noncontributory. The patient was admitted and managed conservatively with bowel rest as well as IV antibiotics. His white count normalized and he was afebrile. CT scan was again performed on this admission, which did show thickening of the sigmoid colon, which may represent a chronic diverticulitis; however, neoplastic process could not be ruled out. He also continued to have nausea and vomiting. On 03/29/2017, he underwent an EGD as well as a sigmoidoscopy and biopsy. FINDINGS: An EGD included a reflux esophagitis class C, esophageal candidiasis as well as a small hiatal hernia approximately 1.5 cm in size. There was an intact gastric pouch with a widely patent what appeared to be Billroth II gastrojejunal anastomosis. Colonoscopy showed chronic stage I external and internal hemorrhoids. There was a near obstructing lesion at the rectosigmoid junction, which may have indicated chronic diverticular stricture versus a neoplastic process. Multiple biopsies were taken, which were benign. We continued with the conservative management. Because he had not eaten appropriately for the past 2 months, his nutritional status was poor and we decided to proceed with TPN. A left subclavian central venous catheter was placed. He was started on TPN. While in the hospital, he did develop a mild shortness of breath and his oxygen saturations were checked, which were low at approximately 70%. A chest CT scan was performed, which did show bilateral small pulmonary emboli. He was treated with anticoagulation with Lovenox b.i.d. as well as high flow humidified oxygen. He responded with this conservative therapy and his oxygen weaned to a minimal amount. He was also ambulating well. His nausea and vomiting also improved while on antibiotics and he was able to tolerate liquids and some solids as well as have bowel movements. At this time, we will proceed with transfer to swing bed status. We will continue with supplementing his nutritional status, especially his protein stores with the TPN. He may also continue diet as tolerated as well as incorporate a high-protein liquid shakes. We will also continue with Lovenox therapy for now. Oncology was consulted with recommendation to proceed with Eliquis 10 mg b.i.d. which we will also start. We will also continue to wean his oxygen to off. This documentation will also serve as a history and physical for his swing bed status history and physical. Job ID: [id number] DocumentID: [id number] Dictated Date: 04/03/2017 18:30:24 Construction Engineer Date: 04/04/2017 08:00:30 Dictated By: MIKE OTOOLE MD
[2017-04-04] MEDS ORDERED: RT-ALBUTEROL/IPRATROPIUM 3 ML (DUONEB) VIAL ONE (14:17)
[2017-04-04] MEDS ORDERED: PIPERACILLIN/TAZO 4.5 GM VIAL (ZOSYN) IV ONE (21:12)
[2017-04-04] MEDS ORDERED: NS (IVPB) 100 ML ONE (21:12)
== END 2017-04-03 13:53 | disposition swing bed (61) | DRG 388 ==
LOC: EDUNIT# 02:22 → ER 02:25 → 4TH 05:10
PROVIDERS: ADMIT Surgery; ATTEND Surgery
PROC: 0DB48ZX Excision of Esophagogastric Junction, Via Natural or Artificial Opening Endoscopic, Diagnostic (ICD-10-PCS; 2017-03-28 12:15)
PROC: 0D5N8ZZ Destruction of Sigmoid Colon, Via Natural or Artificial Opening Endoscopic (ICD-10-PCS; 2017-03-28 12:15)
PROC: 0DBN8ZX Excision of Sigmoid Colon, Via Natural or Artificial Opening Endoscopic, Diagnostic (ICD-10-PCS; 2017-03-28 12:15)
PROC: 02HV33Z Insertion of Infusion Device into Superior Vena Cava, Percutaneous Approach (ICD-10-PCS; principal; 2017-03-29)
PROC: 0JH60XZ Insertion of Tunneled Vascular Access Device into Chest Subcutaneous Tissue and Fascia, Open Approach (ICD-10-PCS; principal; 2017-03-29)
PROC: 02HV33Z Insertion of Infusion Device into Superior Vena Cava, Percutaneous Approach (ICD-10-PCS; 2017-04-03)
PROC: 0JH60XZ Insertion of Tunneled Vascular Access Device into Chest Subcutaneous Tissue and Fascia, Open Approach (ICD-10-PCS; 2017-04-03)
DX: K56.609 Unspecified intestinal obstruction, unspecified as to partial versus complete obstruction (principal); K57.92 Diverticulitis of intestine, part unspecified, without perforation or abscess without bleeding; I26.99 Other pulmonary embolism without acute cor pulmonale; B37.81 Candidal esophagitis; E46 Unspecified protein-calorie malnutrition; N17.9 Acute kidney failure, unspecified; I13.0 Hypertensive heart and chronic kidney disease with heart failure and stage 1 through stage 4 chronic kidney disease, or unspecified chronic kidney disease; I50.9 Heart failure, unspecified; N18.9 Chronic kidney disease, unspecified; K21.0 Gastro-esophageal reflux disease with esophagitis; I25.10 Atherosclerotic heart disease of native coronary artery without angina pectoris; I73.9 Peripheral vascular disease, unspecified; E78.00 Pure hypercholesterolemia, unspecified; Z23 Encounter for immunization; N40.0 Benign prostatic hyperplasia without lower urinary tract symptoms; K22.70 Barrett's esophagus without dysplasia; M19.91 Primary osteoarthritis, unspecified site; D47.3 Essential (hemorrhagic) thrombocythemia; D51.0 Vitamin B12 deficiency anemia due to intrinsic factor deficiency; K64.0 First degree hemorrhoids; K44.9 Diaphragmatic hernia without obstruction or gangrene; R41.0 Disorientation, unspecified; Z90.81 Acquired absence of spleen; Z90.3 Acquired absence of stomach [part of]; Z87.11 Personal history of peptic ulcer disease; Z86.718 Personal history of other venous thrombosis and embolism; Z96.641 Presence of right artificial hip joint; Z86.010 Personal history of colon polyps
CPT/HCPCS: 36415; 71010; 71275; 74177; 80048; 80053; 81000; 82150; 82378; 82962; 83690; 83735; 84100; 84134; 84478; 85007; 85025; 85027; 85610; 87101; 87106; 94640; 94664; 94760; 96374; 96375

== ENCOUNTER 2017-04-03 09:28 | Inpatient (IN) | payer MEDICARE, MEDICAID ==
[~2017-04-03] VITALS: Ht 170.2 cm; Wt 70.9 kg
[~2017-04-03 09:28] MED LIST changes: +ENOXAPARIN 60 MG/0.6 ML (LOVENOX) SYR SC SCH
[2017-04-03] MEDS ORDERED: PIPERACILLIN SODIUM/TAZOBACTAM 4.5 GM in NS (IVPB) 100 ML IV SCH (14:00)
[2017-04-03] MEDS ORDERED: ONDANSETRON 4 MG/2 ML (SDV) Z0FRAN IV PRN (14:00)
[2017-04-03] MEDS ORDERED: HYDROcodone/APAP 7.5 MG/325 MG (LORTAB, LORCET PLUS) TABLET PO PRN (14:00)
[2017-04-03] MEDS ORDERED: fentaNYL INJECTION 100 MCG/2 ML AMP IV PRN (14:00)
[2017-04-03] MEDS ORDERED: METOCLOPRAMIDE INJ 10 MG/2 ML (REGLAN) IVP PRN (14:00)
[2017-04-03] MEDS ORDERED: TPN IV SCH (14:00)
[2017-04-03] MEDS ORDERED: RT-ALBUTEROL SULF 2.5 MG/3 ML PRE-MIX VIAL IH PRN (14:00)
[2017-04-03] MEDS ORDERED: INFLUENZA TRIvalent 2017-2018 0.5 ML/45 MCG SYR IM ONE (14:45)
--- NOTE | 2017-04-03 15:35 | Progress Note (SOAP) ---
Subjective Subjective/Events-last exam Afebrile, no acute events. Oxygen weaned to 4 lpm nasal cannula. He is sitting up in chair this morning and reports continued improvement in pain and breathing. Review of Systems Date Seen by Provider: Apr 03, 2017 Time Seen by Provider: 10:45 Objective Exam Last Set of Vital Signs Capillary Refill : I&O Intake and Output 04/04/17 00:00 Intake Total 480 ml Output Total 400 ml Balance 80 ml Intake Oral 480 ml Output Urine Total 400 ml Daily Weight Change Yes, Unsure # of pounds Yes, Unsure # of pounds General: Alert, No Acute Distress Lungs: Clear to Auscultation, Normal Air Movement Heart: Regular Rate Abdomen: Normal Bowel Sounds, Other (distended, tender) Neuro: Normal Speech Assessment/Plan Assessment/Plan Admission Dx Sigmoid mass s/p biopsy and subsegmental PE, transferred to swing bed for continued therapy. Plan Plan SUBSEGMENTAL PE'S POSTOPERATIVELY SHORTNESS OF BREATH -CTA positive for PEs - will start lovenox 60mg q12h as treatment -can change to Eliquis or other PO anticoagulant when tolerating PO convincingly -volume overload is minimal, so no further doses of lasix -CXR and CTA not concerning for infection - pt on Zosyn for bowel coverage 04/01 - continue lovenox for now, can discuss bridging therapy with pharmacy tomorrow 04/02- given history of thrombocytosis and following with Hematology outpatient , will consult Heme for recommendations 04/03- appreciate Hematology recommendations SIGMOID MASS -awaiting path results MALNUTRITIONAL WEIGHT LOSS, NONINTENTIONAL -on TPN per surgical team 04/01 - pt pulled his central line. do not believe TPN is indicated in patient taking total PO. 04/[address] Diane COOPER 04/01 - GFR down, will replace fluids. NS 500ml x2 h, then increase fluids to 150ml/h. recheck BMP at 1600. 04/02 - Creatinine trending down, increasing swelling, will hold IVF for now and monitor closely 04/03- continues to trend toward normal HTN -on home meds 04/01 - BP down today, could be volume depletion. holding antihypertensives for now. THROMBOCYTOSIS -likely acute phase reactant, increases risk for stroke 04/01 - improved 04/02- consult Heme as noted above LEUKOCYTOSIS 04/01 - likely related to PE's and stress, no fever to indicate continued infection, no left shift 04/02 - labs pending this am 04/03- improving, antimicrobials per Dr. Contreras- on zosyn and fluconazole Clinical Quality Measures DVT/VTE Risk/Contraindication: Risk Factor Score Per Nursin ANTONY VILLARREAL MD Apr 03, 2017 3:35 pm
[2017-04-03] MEDS: RT-ALBUTEROL/IPRATROPIUM 3 ML (DUONEB) VIAL INH SCH ×2 (15:44→19:44)
--- NOTE | 2017-04-03 16:03 | Physical Therapy Evaluation ---
PT Evaluation-General Medical Diagnosis Admission Date Apr 03, 2017 at 13:54 Medical Diagnosis: Diverticular Stricture, Malnutrition Onset Date: Apr 02, 2017 Therapy Diagnosis Therapy Diagnosis: weakness Height/Weight Height (Feet): 5 Height (Inches): 7.00 Weight (Pounds): 156 Weight (Ounces): 4.8 Precautions Precautions/Isolations: Fall Prevention, Standard Precautions Weight Bear Status Right Lower Extremity: Right Full Weight Bearing Left Lower Extremity: Left Full Weight Bearing Referral Reason for Referral: Evaluation/Treatment Medical History Pertinent Medical History: CAD, Diverticulitis, GERD, Heart Failure, HTN, PVD, Renal Insufficiency Social History Home: Single Level Current Living Status: Other Family Entry Into Home: Stairs With Railing PT Steps Into Home: 2 Prior/Core FIM Prior Level of Function Functional [place] Measure 0=Not Assessed/NA 4=Minimal Assistance 1=Total Assistance 5=Supervision or Setup 2=Maximal Assistance 6=Modified [place] 3=Moderate Assistance 7=Complete [place] Bed Mobility: 7 Transfers (B,C,W/C) (FIM): 7 Gait: 7 Locomotion: 7 PT Evaluation-Current Subjective Patient is on the toilet upon PT entering the room. He states he is doing well and agrees to PT. Pain Numeric Pain Scale: 0-No Pain Location: No Pain Reported Pt/Family Goals Patient wishes to return to good health and return home. Objective Patient Orientation: Normal For Age Problem Solving: Good Attachments: Oxygen, Cheng Catheter, IV 2.0 L of O2 ROM/Strength ROM Upper Extremities WNL ROM Lower Extremities WNL Strength Upper Extremities WNL Strenght Lower Extremities L LE- 4/5 gross movements of L LE R LE -5/5 all gross movements Integumentary/Posture Integumentary intact Bladder Incontinence: Cheng Cath Neuromuscular (Tone, Coordination, Reflexes) Tone, coordination, reflexes all normal Sensory Vision: Wears Glasses Hearing: Functional Sensation Right Upper Extremit: Intact Sensation Left Upper Extremity: Intact Sensation Right Lower Extremit: Intact Sensation Left Lower Extremity: Intact Transfers Functional [place] Measure 0=Not Assessed/NA 4=Minimal Assistance 1=Total Assistance 5=Supervision or Setup 2=Maximal Assistance 6=Modified [place] 3=Moderate Assistance 7=Complete [place] Transfers (B, C, W/C) (FIM): 5 Scootin Rollin Supine to/from Sit: 5 Sit to/from Stand: 5 Sit to Lying (QC): 5 Sit to Stand (QC): 5 Patient can perform all transfers with SBA from PT. Gait Does the Patient Walk?: Yes Mode of Locomotion: Walk Anticipated Mode of Locomotion: Walk Gait (FIM): 5 Distance: 200' Walk 50 ft with 2 Turns(QC): 5 Walk 150 ft (QC): 5 Gait Level of Assist: 5 Gait Persons Needed: 1 Gait Assistive Device: FWW Comments/Gait Description Patient walks with normal gait pattern with SBA from PT. Balance Sitting Static: Normal Sitting Dynamic: Normal Standing Static: Normal Standing Dynamic: Normal Assessment/Needs Patient health status has improved over the past day or so. He shows good tolerance for therapeutic exercise and gait. PT will progress patient per his health and tolerance. Rehab Potential: Good PT Police Artist Goals Police Artist Goals PT [facility] Goals Time Frame: Apr 10, 2017 Transfers (B,C,W/C) (FIM): 6 Sit to Lying (QC): 6 Lying-Sitting on Side/Bed(QC): 6 Sit to Stand (QC): 6 Rollin Does the Patient Walk: Yes Gait (FIM): 6 Distance: >300 ft Walk 50ft with 2 Turns (QC): 6 Walk 150 ft (QC): 6 Gait Level of Assist: 6 Gait Assistive Device: FWW PT Plan Problem List Problem List: Activity Tolerance, Functional Strength, Safety, Balance, Gait Treatment/Plan Treatment Plan: Continue Plan of Care Treatment Plan: Functional Activity Perri, Functional Strength, Gait, Safety, Therapeutic Exercise Treatment Duration: Apr 10, 2017 Frequency: 6 times per week Estimated Hrs Per Day: .25 hour per day Patient and/or Family Agrees t: Yes Safety Risks/Education Patient Education: Gait Training, Safety Issues Teaching Recipient: Patient Teaching Methods: Demonstration, Discussion Response to Teaching: Verbalize Understanding, Return Demonstration Discharge Recommendations Therapy D/C Recommendations: Home w/ Family Support Time/GCodes Time In: 1530 Time Out: 1550 Total Billed Treatment Time: 20 Total Billed Treatment 1 visit EVMod 20 min KAITLYN KAISER PT Apr 03, 2017 16:03
--- NOTE | 2017-04-03 16:18 | Oncology Progress Note ---
Subjective Time Seen by Provider: 16:00 Subjective/Events-last exam Pt is feeling better. He is up to chair. He had triple lumen central line placed for TPN today. Dr Contreras decided to hold off any surgery and wait for 10-12 weeks. Pathology of colon mass showed inflammation. NO malignancy He is in swing bed. Physical Exam Vital Signs Capillary Refill : General Appearance: No Apparent Distress, Thin HEENT: PERRL/EOMI Neck: Non Tender, Supple Respiratory: No Accessory Muscle Use, No Respiratory Distress Cardiovascular: Regular Rate, Rhythm Gastrointestinal: Soft Extremity: Non Tender Neurologic/Psychiatric: Alert, Oriented x3 Impression & Plan Impression & Plan A/P: 1. Bilateral PE on Lovenox 60mg bid for 4 days now, clinical improving. He was started on Eliquis 10mg bid today for 3 more days then 5mg bid for 6 months. D/ C Lovenox tomorrow. 2. 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 Hold off Hydrea for now. 3. Colon mass, biopsy showed no malignancy. He may be OK for just medical management. But Dr Contreras will make the final call. 4. N/V dehydration on IVF. Better. However, his I/O showed only 400-500 input every day. He has significant weight loss. I agree with Dr Contreras that Pt needs to be on TPN before he losses more weight and hard to regain back. 5. Leukocytosis, reactive. His WBC is better. 6. Renal insufficiency, acute. Improving. Clinical Quality Measures DVT/VTE Risk/Contraindication: Risk Factor Score Per Nursin ANNE TALLEY MD Apr 03, 2017 16:18
[2017-04-03] MEDS ORDERED: [UNRECOGNIZED DRUG - OTHER] IV SCH ×12 (17:00)
[2017-04-03] MEDS ORDERED: SODIUM ACETATE IV SCH ×12 (17:00)
[2017-04-03] MEDS ORDERED: SODIUM CHLORIDE IV SCH ×12 (17:00)
[2017-04-03] MEDS: AA 4.25% W/LYTES IN D5W IV SOL 1,000 ML IV SCH (17:09)
[2017-04-03 18:02] VITALS: BP 123/67
[2017-04-03] MEDS: PANTOPRAZOLE 40 MG/10 ML (PROTONIX) VIAL IV SCH (19:39)
[2017-04-03] MEDS: PIPERACILLIN SODIUM/TAZOBACTAM 4.5 GM in NS (IVPB) 100 ML IV SCH (19:39)
[2017-04-03] MEDS: CATHETER FLUSH 10 ML SYR IV PRN (19:40)
[2017-04-03] MEDS ORDERED: APIXABAN 5 MG (ELIQUIS) TABLET PO SCH (21:00)
[2017-04-03] MEDS: ENOXAPARIN 60 MG/0.6 ML (LOVENOX) SYR SC SCH (23:15)
[2017-04-04] MEDS: RT-ALBUTEROL/IPRATROPIUM 3 ML (DUONEB) VIAL INH SCH ×4 (03:09→21:57)
[2017-04-04] MEDS: PIPERACILLIN SODIUM/TAZOBACTAM 4.5 GM in NS (IVPB) 100 ML IV SCH ×3 (04:11→21:38)
[2017-04-04 05:54] VITALS: BP 140/86
[2017-04-04 06:15] LABS: BASOPHILS # (AUTO) 0.1 10^3/uL (0.0-0.1); BASOPHILS % (AUTO) 0 % (0-10); EOSINOPHILS # (AUTO) 0.1 10^3/uL (0.0-0.3); EOSINOPHILS % (AUTO) 1 % (0-10); LYMPHOCYTES % (AUTO) 8 % (12-44); MEAN CORPUSCULAR HEMOGLOBIN 32 PG (25-34); MEAN CORPUSCULAR HGB CONC 31 G/DL (32-36); MEAN CORPUSCULAR VOLUME 104 FL (80-99); MEAN PLATELET VOLUME 11.4 FL (7.4-10.4); MONOCYTES # (AUTO) 1.5 X 10^3 (0.0-1.0); MONOCYTES % (AUTO) 12 % (0-12); NEUTROPHILS % (AUTO) 79 % (42-75); PLATELET COUNT 818 10^3/uL (130-400); RED CELL DISTRIBUTION WIDTH 16.9 % (10.0-14.5); WHITE BLOOD COUNT 12.6 10^3/uL (4.3-11.0)
[2017-04-04 06:29] LABS: CALCIUM 8.1 MG/DL (8.5-10.1); CREATININE SERUM 1.21 MG/DL (0.60-1.30); MAGNESIUM 1.7 MG/DL (1.8-2.4); POTASSIUM 3.8 MMOL/L (3.6-5.0)
[2017-04-04] MEDS: FLUCONAZOLE 100 MG/50 ML 50 ML IV SCH (08:59)
[2017-04-04] MEDS: MAGNESIUM 1 GM/100 ML IVPB 100 ML IV SCH ×3 (08:59→10:33)
[2017-04-04] MEDS: lisINopril 10 MG (PRINIVIL) TAB PO SCH (08:59)
[2017-04-04] MEDS: PANTOPRAZOLE 40 MG/10 ML (PROTONIX) VIAL IV SCH ×2 (09:00→21:38)
[2017-04-04] MEDS ORDERED: APIXABAN 5 MG (ELIQUIS) TABLET PO SCH (09:00)
[2017-04-04] MEDS: ENOXAPARIN 60 MG/0.6 ML (LOVENOX) SYR SC SCH (12:09)
--- NOTE | 2017-04-04 12:09 | Physical Therapy Daily Note ---
PT Daily Note-Current Subjective Pt sitting in recliner ending with OT tx. Pt agrees to tx. Pain Numeric Pain Scale: 0-No Pain Mental Status Patient Orientation: Person, Place, Time, Situation Attachments: Oxygen (1L), Cheng Catheter, IV Transfers Functional Bryan Measure 0=Not Assessed/NA 4=Minimal Assistance 1=Total Assistance 5=Supervision or Setup 2=Maximal Assistance 6=Modified [place] 3=Moderate Assistance 7=Complete IndependenceIRFPAI Quality Coding Scale 6 Independent with activity with or without an assistive device 5 Patient requires set up or clean up by helper. Patient completes activity by themselves 4 Supervision or touching assist (CGA). [place] provide cues , steadying assist 3 The helper provides less than half the effort to complete the activity 2 The helper provides more than half the effort to complete the activity 1 Dependent. The helper does all the effort to complete an activity 7 Patient refused to complete or attempt activity 9 The patient did not perform the activity before the current illness or injury 88 Not attempted due to Medical conditions or safety concerns Sit to/from Stand: 4 Sit to Stand (QC): 4 Weight Bearing Right Lower Extremity: Right Full Weight Bearing Left Lower Extremity: Left Full Weight Bearing Gait Training Does the Patient Walk?: Yes Distance (FIM): 3=150 ft Distance: 150' Walk 50 ft with 2 Turns(QC): 5 Walk 150 ft (QC): 5 Gait Level of Assist: 5 Gait Persons Needed: 1 Gait Assistive Device: FWW Slow, but steady gait. Didn't need a rest break. Treatments Pt transitioned to standing using FWW. Pt then ambulated hallways using FWW at SBA. Pt returned to room to rest in recliner at end of tx with all needs met. Assessment Current Status: Good Progress Pt fatigued by end of walk, but is improving with strength and endurance. PT Impregnation Operator Goals Fci Goals PT [facility]ci Goals Time Frame: Apr 10, 2017 Transfers (B,C,W/C) (FIM): 6 Sit to Lying (QC): 6 Lying-Sitting on Side/Bed(QC): 6 Sit to Stand (QC): 6 Rollin Does the Patient Walk: Yes Gait (FIM): 6 Distance: >300 ft Walk 50ft with 2 Turns (QC): 6 Walk 150 ft (QC): 6 Gait Level of Assist: 6 Gait Assistive Device: FWW PT Plan Problem List Problem List: Activity Tolerance, Functional Strength, Safety, Gait, Transfer Treatment/Plan Treatment Plan: Continue Plan of Care Treatment Plan: Functional Activity Perri, Functional Strength, Gait, Safety, Therapeutic Exercise Treatment Duration: Apr 10, 2017 Frequency: 6 times per week Estimated Hrs Per Day: .25 hour per day Patient and/or Family Agrees t: Yes Safety Risks/Education Patient Education: Gait Training, Transfer Techniques, Correct Positioning, Safety Issues Teaching Recipient: Patient Teaching Methods: Discussion Response to Teaching: Verbalize Understanding Time/GCodes Time In: 1143 Time Out: 1159 Total Billed Treatment Time: 16 Total Billed Treatment 1 visit, GT (16m) JENNIFER AREVALO TRACK LAYER HEAD Apr 04, 2017 12:09
--- NOTE | 2017-04-04 13:12 | Occupational Ther Daily Note ---
OT Current Status-Daily Note Subjective Pt sitting in chair, agrees to treatment. Pt has no c/o pain. Mental Status/Objective Functional Circle Measure 0=Not Assessed/NA 4=Minimal Assistance 1=Total Assistance 5=Supervision or Setup 2=Maximal Assistance 6=Modified Circle 3=Moderate Assistance 7=Complete Circle ADL-Treatment Pt agrees to ADLs this am. Sponge bath completed while seated in chair. Pt able to bathe upper body with set up and increased time. Pt washes upper legs with set up, but requires assist to wash lower legs and feet. Pt unable to reach feet to doff/don socks, requires total assist to complete. Pt donned clean hospital gown with minimal assistance secondary to IV. Pt combed hair with minimal assistance to reach back of head. Pt sitting in chair with needs met and PUMP TECHNICIAN present after session. Functional Circle Measure 0=Not Assessed/NA 4=Minimal Assistance 1=Total Assistance 5=Supervision or Setup 2=Maximal Assistance 6=Modified Circle 3=Moderate Assistance 7=Complete IndependenceIRFPAI Quality Coding Scale 6 Independent with activity with or without an assistive device 5 Patient requires set up or clean up by helper. Patient completes activity by themselves 4 Supervision or touching assist (CGA). [place] provide cues , steadying assist 3 The helper provides less than half the effort to complete the activity 2 The helper provides more than half the effort to complete the activity 1 Dependent. The helper does all the effort to complete an activity 7 Patient refused to complete or attempt activity 9 The patient did not perform the activity before the current illness or injury 88 Not attempted due to Medical conditions or safety concerns SWB evaluation has been completed, but was documented on the acute chart. Will transition to SWB chart when evaluating therapist is available. OT Short Term Goals Short Term Goals 1=Demonstrate adherence to instructed precautions during ADL tasks. 2=Patient will verbalize/demonstrate understanding of assistive devices/ modifications for ADL. 3=Patient will improve strength/tolerance for activity to enable patient to perform ADL's. OT Mcc Goals Mcc Goals 1=Demonstrate adherence to instructed precautions during ADL tasks. 2=Patient will verbalize/demonstrate understanding of assistive devices/ modifications for ADL. 3=Patient will improve strength/tolerance for activity to enable patient to perform ADL's. OT Education/Plan Discharge Recommendations Plan/Recommendations: Continue POC Treatment Plan/Plan of Care Patient would benefit from OT for education, treatment and training to promote independence in ADL's, mobility, safety and/or upper extremity function for ADL' s. Treatment Duration: Apr 17, 2017 Frequency: 5 times per week Estimated Hrs Per Day: .5 hour per day Rehab Potential: Good Time/GCodes Start Time: 11:27 Stop Time: 11:43 Total Time Billed (hr/min): 16 Billed Treatment Time 1 visit, ADL(16minutes) CHERRI BAUER OT Apr 04, 2017 13:11
[2017-04-04 17:14] VITALS: BP 109/70
[2017-04-04] MEDS: AA 4.25% W/LYTES IN D5W IV SOL 1,000 ML IV SCH (17:24)
[2017-04-04] MEDS: APIXABAN 5 MG (ELIQUIS) TABLET PO SCH (21:39)
[2017-04-05] MEDS: RT-ALBUTEROL/IPRATROPIUM 3 ML (DUONEB) VIAL INH SCH ×4 (03:03→22:00)
[2017-04-05] MEDS: PIPERACILLIN SODIUM/TAZOBACTAM 4.5 GM in NS (IVPB) 100 ML IV SCH ×3 (04:10→19:49)
[2017-04-05 05:04] VITALS: BP 125/84
[2017-04-05] MEDS: CATHETER FLUSH 10 ML SYR IV PRN (09:18)
[2017-04-05] MEDS: PANTOPRAZOLE 40 MG/10 ML (PROTONIX) VIAL IV SCH ×2 (09:19→19:50)
[2017-04-05] MEDS: APIXABAN 5 MG (ELIQUIS) TABLET PO SCH ×2 (09:19→19:50)
[2017-04-05] MEDS: lisINopril 10 MG (PRINIVIL) TAB PO SCH (09:19)
[2017-04-05] MEDS: FLUCONAZOLE 100 MG/50 ML 50 ML IV SCH (09:22)
--- NOTE | 2017-04-05 11:31 | Physical Therapy Daily Note ---
PT Daily Note-Current Subjective Patient is standing up with nursing as he had just toileted upon PT entering the room. He states he is feeling pretty good today and agrees to PT. Pain Numeric Pain Scale: 0-No Pain Location: No Pain Reported Appearance Patient appears healthy on this date. He is left post tx seated in his chair with call light and phone in reach. Mental Status Patient Orientation: Normal For Age Attachments: IV Transfers Functional Mobile Measure 0=Not Assessed/NA 4=Minimal Assistance 1=Total Assistance 5=Supervision or Setup 2=Maximal Assistance 6=Modified [place] 3=Moderate Assistance 7=Complete IndependenceIRFPAI Quality Coding Scale 6 Independent with activity with or without an assistive device 5 Patient requires set up or clean up by helper. Patient completes activity by themselves 4 Supervision or touching assist (CGA). [place] provide cues , steadying assist 3 The helper provides less than half the effort to complete the activity 2 The helper provides more than half the effort to complete the activity 1 Dependent. The helper does all the effort to complete an activity 7 Patient refused to complete or attempt activity 9 The patient did not perform the activity before the current illness or injury 88 Not attempted due to Medical conditions or safety concerns Transfers (B, C, W/C) (FIM): 5 Sit to/from Stand: 5 Patient sits back into chair safely with SBA from PT. Weight Bearing Right Lower Extremity: Right Full Weight Bearing Left Lower Extremity: Left Full Weight Bearing Gait Training Does the Patient Walk?: Yes Gait (FIM): 6 Distance: >600' Gait Level of Assist: 6 Gait Assistive Device: FWW Patient ambulates safely with FWW and mod I assistance. Exercises Seated Therapy Exercises: Long arc quads, Hip flexion Seated Reps: 25 Assessment Current Status: Good Progress Patient continues to progress his tolerance for gait distance and exercise. He is reporting feeling healthier with every visit. PT will continue to progress interventions per patient tolerance. PT Correction Goals Permastone Applicator Goals PT Correction Goals Time Frame: Apr 10, 2017 Transfers (B,C,W/C) (FIM): 6 Sit to Lying (QC): 6 Lying-Sitting on Side/Bed(QC): 6 Sit to Stand (QC): 6 Rollin Does the Patient Walk: Yes Gait (FIM): 6 Distance: >300 ft Walk 50ft with 2 Turns (QC): 6 Walk 150 ft (QC): 6 Gait Level of Assist: 6 Gait Assistive Device: FWW PT Plan Problem List Problem List: Activity Tolerance, Functional Strength, Safety, Balance, Gait, Transfer Treatment/Plan Treatment Plan: Continue Plan of Care Treatment Plan: Functional Activity Perri, Functional Strength, Gait, Safety, Therapeutic Exercise Treatment Duration: Apr 10, 2017 Frequency: 6 times per week Estimated Hrs Per Day: .25 hour per day Patient and/or Family Agrees t: Yes Time/GCodes Time In: 1044 Time Out: 1103 Total Billed Treatment Time: 19 Total Billed Treatment 1 visit FA 19 min KAITLYN KAISER PT Apr 05, 2017 11:31
[2017-04-05 15:14] VITALS: BP 125/84
--- NOTE | 2017-04-05 15:37 | Occupational Ther Daily Note ---
OT Current Status-Daily Note Subjective Pt sleeping in bed. Woke to name. Pt agreed to therapy. Pt stated that he had been up walking with therapy and was tired out. Mental Status/Objective Functional Saline Measure 0=Not Assessed/NA 4=Minimal Assistance 1=Total Assistance 5=Supervision or Setup 2=Maximal Assistance 6=Modified Saline 3=Moderate Assistance 7=Complete Saline Attachments: IV ADL-Treatment Functional Saline Measure 0=Not Assessed/NA 4=Minimal Assistance 1=Total Assistance 5=Supervision or Setup 2=Maximal Assistance 6=Modified Saline 3=Moderate Assistance 7=Complete IndependenceIRFPAI Quality Coding Scale 6 Independent with activity with or without an assistive device 5 Patient requires set up or clean up by helper. Patient completes activity by themselves 4 Supervision or touching assist (CGA). [place] provide cues , steadying assist 3 The helper provides less than half the effort to complete the activity 2 The helper provides more than half the effort to complete the activity 1 Dependent. The helper does all the effort to complete an activity 7 Patient refused to complete or attempt activity 9 The patient did not perform the activity before the current illness or injury 88 Not attempted due to Medical conditions or safety concerns Other Treatment Pt completed 6 UE exercises while lying in supine. Pt tolerated well though decreased ROM with shldr extension. Pt fatigued during exercises and kept closing eyes. After therapy, pt lying in bed with respiratory in room. Call light/phone in reach. All needs met in room. OT Short Term Goals Short Term Goals 1=Demonstrate adherence to instructed precautions during ADL tasks. 2=Patient will verbalize/demonstrate understanding of assistive devices/ modifications for ADL. 3=Patient will improve strength/tolerance for activity to enable patient to perform ADL's. OT Penitentiary Goals Cabin Cleaner Goals 1=Demonstrate adherence to instructed precautions during ADL tasks. 2=Patient will verbalize/demonstrate understanding of assistive devices/ modifications for ADL. 3=Patient will improve strength/tolerance for activity to enable patient to perform ADL's. OT Education/Plan Discharge Recommendations Plan/Recommendations: Continue POC Treatment Plan/Plan of Care Patient would benefit from OT for education, treatment and training to promote independence in ADL's, mobility, safety and/or upper extremity function for ADL' s. Treatment Duration: Apr 17, 2017 Frequency: 5 times per week Estimated Hrs Per Day: .5 hour per day Rehab Potential: Good Time/GCodes Start Time: 15:00 Stop Time: 15:15 Total Time Billed (hr/min): 15 Billed Treatment Time 1 visit-EX 1 (15 min) MISSY MARCUM Apr 05, 2017 15:37
[2017-04-05] MEDS: AA 4.25% W/LYTES IN D5W IV SOL 1,000 ML IV SCH (16:07)
[2017-04-05 18:00] VITALS: BP 124/68
[2017-04-06] MEDS: RT-ALBUTEROL/IPRATROPIUM 3 ML (DUONEB) VIAL INH SCH ×2 (02:55→09:09)
[2017-04-06] MEDS: PIPERACILLIN SODIUM/TAZOBACTAM 4.5 GM in NS (IVPB) 100 ML IV SCH (04:06)
[2017-04-06 06:11] VITALS: BP 135/65
--- NOTE | 2017-04-06 10:07 | Physician Progress Note ---
Progress Note Assessment/Plan Time Seen by Provider: 10:00 Events since last exam Pt is doing better, possible going home today. Assessment/Plan A/P: 1. Bilateral PE on Lovenox 60mg bid for 4 days now, clinical improving. He was started on Eliquis 10mg bid. Please change to 5mg bid on discharge. You can start tomorrow for 6 months. 2. 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 Hold off Hydrea for now. See me at the cancer center after Thanksgi Holiday. Please call [facility] for f/u appointment. 3. Colon mass, biopsy showed no malignancy. He may be OK for just medical management. But Dr Contreras will make the final call. 4. N/V dehydration, improved. 5. Leukocytosis, reactive. His WBC is better. Watch for now. 6. Renal insufficiency, acute. Improving. Vitals Last set of Vitals Signs Vital Signs Date Time Temp Pulse Resp B/P (MAP) Pulse Ox O2 Delivery O2 Flow Rate FiO2 04/06/17 09:09 92 Room Air 04/06/17 06:11 97.7 87 16 135/65 04/05/17 15:14 21 04/05/17 09:00 0.50 I&O I&O Intake and Output 04/07/17 00:00 Intake Total 100 ml Output Total 800 ml Balance -700 ml Intake Oral 0 ml IV Total 100 ml Output Urine Total 800 ml # Bowel Movements 1 Clinical Quality Measures DVT/VTE Risk/Contraindication: Risk Factor Score Per Nursin ANNE TALLEY MD Apr 06, 2017 10:07
[2017-04-06] MEDS: APIXABAN 5 MG (ELIQUIS) TABLET PO SCH (10:44)
[2017-04-06] MEDS: PANTOPRAZOLE 40 MG/10 ML (PROTONIX) VIAL IV SCH (10:44)
[2017-04-06] MEDS: lisINopril 10 MG (PRINIVIL) TAB PO SCH (10:44)
[2017-04-06] MEDS: FLUCONAZOLE 100 MG/50 ML 50 ML IV SCH (10:45)
--- NOTE | 2017-04-06 11:09 | Progress Note (SOAP) ---
Subjective Date Seen by Provider: Apr 05, 2017 Time Seen by Provider: 18:00 Subjective/Events-last exam doing well. no complaints. tolerating diet having BM's. no SOB Objective Exam Vital Signs Date Time Temp Pulse Resp B/P (MAP) Pulse Ox O2 Delivery O2 Flow Rate FiO2 04/06/17 09:09 92 Room Air 04/06/17 06:11 97.7 87 16 135/65 95 Room Air 04/06/17 02:55 92 Room Air 04/05/17 22:00 92 Room Air 04/05/17 20:54 Room Air 04/05/17 18:00 98.4 90 18 124/68 95 Room Air 04/05/17 15:14 85 94 21 04/05/17 15:08 94 Room Air Capillary Refill : General Appearance: No Apparent Distress HEENT: PERRL/EOMI Neck: Full Range of Motion Respiratory: Chest Non Tender, Lungs Clear, Normal Breath Sounds Cardiovascular: Regular Rate, Rhythm Gastrointestinal: normal bowel sounds, non tender, soft Extremity: Normal Capillary Refill Neurologic/Psychiatric: Alert, Oriented x3 Skin: Normal Color Lymphatic: No Adenopathy Assessment/Plan Assessment/Plan Assess & Plan/Chief Complaint diverticular stricture. diet as tolerated. stool softener. increase ambulation. continue TPN for now. Clinical Quality Measures DVT/VTE Risk/Contraindication: Risk Factor Score Per Nursin MIKE OTOOLE MD Apr 06, 2017 11:09 am
--- NOTE | 2017-04-06 11:11 | Progress Note (SOAP) ---
Subjective Date Seen by Provider: Apr 06, 2017 Time Seen by Provider: 11:00 Subjective/Events-last exam doing well. ambulating better. tolerating diet and having BM's. no SOB. Objective Exam Vital Signs Date Time Temp Pulse Resp B/P (MAP) Pulse Ox O2 Delivery O2 Flow Rate FiO2 04/06/17 09:09 92 Room Air 04/06/17 06:11 97.7 87 16 135/65 95 Room Air 04/06/17 02:55 92 Room Air 04/05/17 22:00 92 Room Air 04/05/17 20:54 Room Air 04/05/17 18:00 98.4 90 18 124/68 95 Room Air 04/05/17 15:14 85 94 21 04/05/17 15:08 94 Room Air Capillary Refill : General Appearance: No Apparent Distress HEENT: PERRL/EOMI Neck: Full Range of Motion Respiratory: Chest Non Tender, Lungs Clear, Normal Breath Sounds Cardiovascular: Regular Rate, Rhythm Gastrointestinal: normal bowel sounds, non tender, soft Extremity: Normal Capillary Refill Neurologic/Psychiatric: Alert, Oriented x3 Skin: Normal Color Lymphatic: No Adenopathy Assessment/Plan Assessment/Plan Assess & Plan/Chief Complaint diverticular stricture. diet as tolerated. stool softener. increase ambulation. home with home health. Clinical Quality Measures DVT/VTE Risk/Contraindication: Risk Factor Score Per Nursin MIKE OTOOLE MD Apr 06, 2017 11:11 am
--- NOTE | 2017-04-06 11:25 | Occupational Ther Daily Note ---
OT Current Status-Daily Note Subjective Pt sitting in chair, agrees to treatment. Pt states he might be going home today. Mental Status/Objective Functional Green Measure 0=Not Assessed/NA 4=Minimal Assistance 1=Total Assistance 5=Supervision or Setup 2=Maximal Assistance 6=Modified Green 3=Moderate Assistance 7=Complete Green Attachments: IV ADL-Treatment Pt would like a sponge bath this morning. Pt completed sponge bath while seated in chair. Upper body bathing completed with set up. Pt able to wash tracy area and bilateral upper legs with SBA. Pt requires assist to doff/don socks and wash lower legs/feet. Don hospital gown with assist secondary to IVs. Pt performed sit to stand with supervision for repositioning in chair. Pt brushed hair with setup. Pt sitting in chair with PT present for treatment after session. Functional Green Measure 0=Not Assessed/NA 4=Minimal Assistance 1=Total Assistance 5=Supervision or Setup 2=Maximal Assistance 6=Modified Green 3=Moderate Assistance 7=Complete IndependenceIRFPAI Quality Coding Scale 6 Independent with activity with or without an assistive device 5 Patient requires set up or clean up by helper. Patient completes activity by themselves 4 Supervision or touching assist (CGA). [place] provide cues , steadying assist 3 The helper provides less than half the effort to complete the activity 2 The helper provides more than half the effort to complete the activity 1 Dependent. The helper does all the effort to complete an activity 7 Patient refused to complete or attempt activity 9 The patient did not perform the activity before the current illness or injury 88 Not attempted due to Medical conditions or safety concerns Grooming (FIM): 5 Bathing (FIM): 4 OT Short Term Goals Short Term Goals 1=Demonstrate adherence to instructed precautions during ADL tasks. 2=Patient will verbalize/demonstrate understanding of assistive devices/ modifications for ADL. 3=Patient will improve strength/tolerance for activity to enable patient to perform ADL's. OT Mcfp Goals Cement Mason Goals 1=Demonstrate adherence to instructed precautions during ADL tasks. 2=Patient will verbalize/demonstrate understanding of assistive devices/ modifications for ADL. 3=Patient will improve strength/tolerance for activity to enable patient to perform ADL's. OT Education/Plan Discharge Recommendations Plan/Recommendations: Continue POC Treatment Plan/Plan of Care Patient would benefit from OT for education, treatment and training to promote independence in ADL's, mobility, safety and/or upper extremity function for ADL' s. Treatment Duration: Apr 17, 2017 Frequency: 5 times per week Estimated Hrs Per Day: .5 hour per day Rehab Potential: Good Time/GCodes Start Time: 10:53 Stop Time: 11:15 Total Time Billed (hr/min): 22 Billed Treatment Time 1 visit, ADL(22minutes) CHERRI BAUER OT Apr 06, 2017 11:25
[2017-04-06] MEDS ORDERED: APIX5TAB PO (11:43)
[2017-04-06] MEDS ORDERED: AMOX-358 PO (11:43)
[2017-04-06] MEDS ORDERED: FLUC100T PO (11:43)
[2017-04-06] MEDS ORDERED: DOCU-143 PO (11:43)
--- NOTE | 2017-04-06 11:49 | Physical Therapy Daily Note ---
PT Daily Note-Current Subjective Patient is seated in chair upon PT entering the room. He states he is leaving this afternoon when someone gets here to pick him up. He agrees to PT. Pain Numeric Pain Scale: 0-No Pain Location: No Pain Reported Appearance Patient appears healthy. He is left seated in chair post tx with call light and phone in reach. Mental Status Patient Orientation: Normal For Age Attachments: IV Transfers Functional Oliver Measure 0=Not Assessed/NA 4=Minimal Assistance 1=Total Assistance 5=Supervision or Setup 2=Maximal Assistance 6=Modified [place] 3=Moderate Assistance 7=Complete IndependenceIRFPAI Quality Coding Scale 6 Independent with activity with or without an assistive device 5 Patient requires set up or clean up by helper. Patient completes activity by themselves 4 Supervision or touching assist (CGA). [place] provide cues , steadying assist 3 The helper provides less than half the effort to complete the activity 2 The helper provides more than half the effort to complete the activity 1 Dependent. The helper does all the effort to complete an activity 7 Patient refused to complete or attempt activity 9 The patient did not perform the activity before the current illness or injury 88 Not attempted due to Medical conditions or safety concerns Transfers (B, C, W/C) (FIM): 6 Scootin Roll Left to Right (QC): 6 Supine to/from Sit: 6 Sit to/from Stand: 6 Sit to Lying (QC): 6 Sit to Stand (QC): 6 Chair/[id number]-Bwfpt Xfer(QC): 6 Bed to/from Chair: 6 Patient can perform all transfers independently. Weight Bearing Right Lower Extremity: Right Full Weight Bearing Left Lower Extremity: Left Full Weight Bearing Gait Training Does the Patient Walk?: Yes Gait (FIM): 6 Distance: >500' Walk 50 ft with 2 Turns(QC): 6 Walk 150 ft (QC): 6 Gait Level of Assist: 6 Gait Assistive Device: FWW Patient ambulates mod I with FWW. Assessment Current Status: Good Progress Patient has improved significantly since admission to the hospital. He performs transfers and walks safely. PT intervention is no longer necessary at this point. PT Long-Term Goals Long-Term Goals PT Long-Term Goals Time Frame: Apr 10, 2017 Transfers (B,C,W/C) (FIM): 6 Sit to Lying (QC): 6 Lying-Sitting on Side/Bed(QC): 6 Sit to Stand (QC): 6 Rollin Does the Patient Walk: Yes Gait (FIM): 6 Distance: >300 ft Walk 50ft with 2 Turns (QC): 6 Walk 150 ft (QC): 6 Gait Level of Assist: 6 Gait Assistive Device: FWW PT Plan Problem List Problem List: Activity Tolerance, Functional Strength, Safety, Balance, Gait, Transfer Treatment/Plan Treatment Plan: Discontinue PT, goals met Treatment Plan: Functional Activity Perri, Functional Strength, Gait, Safety, Therapeutic Exercise Treatment Duration: Apr 10, 2017 Frequency: 6 times per week Estimated Hrs Per Day: .25 hour per day Patient and/or Family Agrees t: Yes Discontinue PT Safety Risks/Education Patient Education: Gait Training, Reviewed Precautions, Safety Issues Teaching Recipient: Patient Teaching Methods: Demonstration, Discussion Response to Teaching: Verbalize Understanding, Return Demonstration Discharge Recommendations Therapy D/C Recommendations: Home w/ Family Support Equpiment Recommendations-D/C: Front Wheeled Walker Time/GCodes Time In: 1117 Time Out: 1133 Total Billed Treatment Time: 16 Total Billed Treatment 1 visit GT 16 min KAITLYN KAISER PT Apr 06, 2017 11:49
--- NOTE | 2017-04-06 11:49 | D/C HH Face to Face Order ---
D/C Face to Face Orders Instructions for Patient Patient Instructions/FollowUp: yolanda 2 weeks. willian 2 weeks. loan 04/16/17 3pm. Physician to follow Patient: willian otoole xun Discharge Diet for Home: Low Residue, Soft Diet Patient Problems: diverticular stricture. PE. protein-jo malnutrition. Patient Data-Allergies,Ht & Wt Patient Allergies: Coded Allergies: No Known Drug Allergies (Verified , 07/21/09) Height (Feet): 5 Height (Inches): 7.00 Weight (Pounds): 156 Weight (Ounces): 4.8 Home Health Need/Face to Face Date of Face to Face: Apr 06, 2017 Clinical Findings: Generalized weakness and fatigue, Instability, Muscle weakness, Shortness of breath I have seen Pt [id number]: Yes Discharged To: Home Diagnosis/Conditions: diverticular stricture. PE. protein-jo malnutrition. Problems/Diagnosis/Condition: Patient is Homebound due to: Muscle weakness, Shortness of breath/distress Homebound Status Due to the above stated illness, injury or surgical procedure (medical condition or diagnosis) and associated clinical findings, the patient is homebound because of his/her inability to leave home except with aid of a supportive device and/or person AND leaving the home requires a considerable and taxing effort or is medically contraindicated. Pt req the following assistanc: Walker Home Health Nursing Orders Home Health Services Order: Nursing Services, Physical Therapy-Evaluate & Treat Home Health Infusion Therapy Line Type: Saline Lock Site Location: Forearm Therapy Orders Therapy Orders: Physical Therapy Certify Stmt I certify that this patient is under my care and that I, a nurse practitioner or a physician; a facilities assistant working with me, had a face to face encounter that - meets the physician face to face encounter requirements with this patient as dated. MIKE OTOOLE MD Apr 06, 2017 11:49 am
--- NOTE | 2017-04-06 12:03 | Therapy Team Discharge Summary ---
Therapy Discharge Summary Discharge Recommendations Date of Discharge Therapy D/C Recommendations: Home w/ Family Support Physical Therapy Patient was admitted to [facility] due to diverticular stricture and malnutrition. Upon admission, patient was on 2.0 L of oxygen and had a rivera catheter inserted. Patient performed all transfers with SBA from PT. Patient was able to ambulate 200 ft with SBA from PT for safe ambulation. Ambulation distance was limited to 200' due to weakness and exhaustion. Patient is expecting to discharge from the hospital on this date. Patient has improved significantly since admission. Patient has met all goals for PT. He can perform all transfers and bed mobility with mod I. Patient walks with a safe gait pattern with a FWW. He is no longer limited in ambulation distance by weakness or exhaustion. Patient no longer uses O2 through a nasal cannula and no toilets and performs all bowel movements independently. This patient lives at home with his son and grandson. PT determines that this patient is safe to discharge home with family support. PT Fdc Goals Fdc Goals PT Rabbit Fancier Goals Time Frame: Apr 10, 2017 Transfers (B,C,W/C) (FIM): 6 (met 04/06/17) Sit to Lying (QC): 6 (met 04/06/17) Lying-Sitting on Side/Bed(QC): 6 (met 04/06/17) Sit to Stand (QC): 6 (met 04/06/17) Rollin (met 04/06/17) Does the Patient Walk: Yes Gait (FIM): 6 (met 04/06/17) Distance: >300 ft Walk 50ft with 2 Turns (QC): 6 (met 04/06/17) Walk 150 ft (QC): 6 (met 04/06/17) Gait Level of Assist: 6 (met 04/06/17) Gait Assistive Device: FWW OT Rabbit Fancier Goals Rabbit Fancier Goals 1=Demonstrate adherence to instructed precautions during ADL tasks. 2=Patient will verbalize/demonstrate understanding of assistive devices/ modifications for ADL. 3=Patient will improve strength/tolerance for activity to enable patient to perform ADL's. KAITLYN KAISER PT Apr 06, 2017 12:03
--- NOTE | 2017-04-06 13:19 | Occupational Therapy Eval ---
OT Evaluation-General/PLF Medical Diagnosis Admission Date Apr 03, 2017 at 13:54 Medical Diagnosis: Bowel Obstruction, Thrombosis Onset Date: Mar 25, 2017 Therapy Diagnosis Therapy Diagnosis: decr self care, weakness, decr act tolerance, decr funct mobility Height/Weight Height (Feet): 5 Height (Inches): 7.00 Weight (Pounds): 156 Weight (Ounces): 4.8 Precautions Precautions/Isolations: Fall Prevention, Standard Precautions Safety Interventions: Bed Exit Alarm Referral Physician: Diane Referral Reason: Evaluation/Treatment Medical History Pertinent Medical History: Arthritis, CAD, Diverticulitis, GERD, Heart Failure , HTN, PVD, Renal Insufficiency Additional Medical History Ulcers and GI bleeds, stomach resection for ulcers. R THR. Pneumonia. Chronic edema. BPH. Rodrigues's esophagus. Anemia. Hiatal hernia. Skin cancer. Current History Pt admitted to acute care with abdominal pain and cramping. Found to have bowel obstruction and diverticulitis. Also PE Reviewed History: Yes Social History Home: Single Level Current Living Status: Other Family (son and grandson) Entry Into Home: Stairs With Railing Steps Into Home: 2 ADL-Prior Level of Function ADL PLOF Comments Pt reported that he was previously able to manage his basic self care. He is retired and still drives OT Current Status Subjective Pt seen in room, up in bed, agreeable to OT. Pt reported some discomfort in L upper arm from IV inserted today but did not rate pain Appearance Alert, cooperative Mental Status/Objective Attachments: Central Line, Rivera Catheter, IV, Oxygen (1L/min nc) Current Glasses/Contacts: Yes Hearing Aids: No Dentures/Partials: Yes Hand Dominance: Right Upper Extremity ROM Grossly WFL but pt reluctant to move at L shoulder due to recent procedure Upper Extremity Sensation Pt reported no problems Upper Extremity Strength Grossly 4/5 bilat ADL-Treatment ADL-Current Pt was reluctant to get up today because he had a procedure on L upper arm this morning and it was sore Functional [place] Measure 0=Not Assessed/NA 4=Minimal Assistance 1=Total Assistance 5=Supervision or Setup 2=Maximal Assistance 6=Modified [place] 3=Moderate Assistance 7=Complete IndependenceIRFPAI Quality Coding Scale 6 Independent with activity with or without an assistive device 5 Patient requires set up or clean up by helper. Patient completes activity by themselves 4 Supervision or touching assist (CGA). [place] provide cues , steadying assist 3 The helper provides less than half the effort to complete the activity 2 The helper provides more than half the effort to complete the activity 1 Dependent. The helper does all the effort to complete an activity 7 Patient refused to complete or attempt activity 9 The patient did not perform the activity before the current illness or injury 88 Not attempted due to Medical conditions or safety concerns Eating (QC): 5 (Per pt report) Grooming (FIM): 5 Oral Hygiene (QC): 5 (Per pt report) Bathing (FIM): 5 (dentures, per pt report) Toileting (FIM): 1 (Pt dependant with rivera care. Reports he tries to wipe but has nurses finish) Toileting Hygiene (QC): 1 Toilet/Commode Transfer (FIM): 4 (CGA to BSC per pt report) Toilet Transfer (QC): 4 (CGA per pt report) Pt left up in bed, all needs met Education OT Patient Education: Purpose of tx/functional activities, Rehab process Teaching Recipient: Patient Teaching Methods: Discussion Response to Teaching: Verbalize Understanding OT Leasing Director Goals Leasing Director Goals Time Frame: Apr 17, 2017 Eating (FIM): 6 Eating (QC): 6 Groomin Oral Hygiene (QC): 6 Bathing(FIM): 5 Upper Body Dressing(FIM): 5 Lower Body Dressing(FIM): 5 Toileting(FIM): 6 Toileting Hygiene (QC): 6 Toilet/Commode Transfer(FIM): 6 Toilet/Commode Transfer (QC): 6 Additional Goals: 1-Demonstrate ADL Tasks, 2-Verbalize Understanding, 3- ImproveStrength/Perri 1=Demonstrate adherence to instructed precautions during ADL tasks. 2=Patient will verbalize/demonstrate understanding of assistive devices/ modifications for ADL. 3=Patient will improve strength/tolerance for activity to enable patient to perform ADL's. OT Education/Plan Problem List/Assessment Assessment: Decreased Activ Tolerance, Decreased UE Strength, Dependent Transfers, Impaired Self-Care Skills Pt would benefit from skilled OT to increase his independence in basic self care and to decrease caregiver burden Discharge Recommendations Plan/Recommendations: Continue POC Treatment Plan/Plan of Care Treatment,Training & Education: Yes Patient would benefit from OT for education, treatment and training to promote independence in ADL's, mobility, safety and/or upper extremity function for ADL' s. Plan of Care: ADL Retraining, Functional Mobility, UE Funct Exercise/Act Treatment Duration: Apr 17, 2017 Frequency: 5 times per week Estimated Hrs Per Day: .5 hour per day Rehab Potential: Good Time/GCodes Start Time: 14:45 Stop Time: 15:00 Total Time Billed (hr/min): 15 Billed Treatment Time visit, 15 minutes evaluation moderate intensity This evaluation was completed on April 03, 2017 at 15:20 and was saved in the acute care chart instead of swing bed chart SRIDEVI LIVE OT Apr 06, 2017 13:19
[2017-04-06 14:30] VITALS: BP 135/65
--- NOTE | 2017-04-07 05:05 | DISCHARGE SUMMARY ---
DATE OF SERVICE: ATTENDING PRIMARY CARE PHYSICIAN: [facility]. ADMISSION DIAGNOSES: Symptomatic diverticular stricture, pulmonary embolism. DISCHARGE DIAGNOSES: Symptomatic diverticular stricture, pulmonary embolism. OTHER DIAGNOSES: Coronary artery disease, congestive heart failure, peripheral vascular disease, essential thrombocytosis, history of deep vein thrombosis, hypercholesterolemia, hypertension, renal insufficiency, history of diverticulosis and diverticulitis, history of peptic ulcer disease, history of Rodrigues's esophagus. PRINCIPAL PROCEDURE: None. COMPLICATIONS: None. DISPOSITION: To home with home health care. HISTORY OF PRESENT ILLNESS: The patient is a 71-year-old male who we have seen before in the past. He has had intermittent episodes of left lower quadrant abdominal pain and has undergone a colonoscopy by us in the past and was found to have diverticulosis. He underwent another colonoscopy by another surgeon. A polyp was identified, biopsied and found to be benign. He was admitted for diverticulitis identified on physical examination as well as a CT scan 2 months previous. He has had similar episodes of left lower abdominal quadrant pain followed by nausea and vomiting. He was admitted and started on IV hydration as well as IV antibiotics. He continued to have persistent nausea and vomiting as well as dilated loops of small bowel consistent with some form of partial obstruction. He underwent an EGD and colonoscopy on 03/29/2017 which showed a reflux esophagitis class C, esophageal candidiasis as well as a small hiatal hernia approximately 1.5 cm in size. There is an intact pouch with a widely patent Billroth II gastrojejunal anastomosis. Colonoscopy showed a chronic mild stage I external and internal hemorrhoids; however, there was a near obstructing lesion of the rectosigmoid junction. This was biopsied and found to be benign. During that hospital stay, he did develop hypoxemia and a CT scan was performed which did show a bilateral small pulmonary emboli. He was treated appropriately with anticoagulation and improved, and his oxygen saturations had improved significantly. PAST MEDICAL HISTORY: Coronary artery disease, CHF, peripheral vascular disease, history of DVT, hypercholesterolemia, hypertension, renal insufficiency, history of peptic ulcer disease, history of GERD and Rodrigues's esophagus, history of diverticulosis and diverticulitis. PAST SURGICAL HISTORY: Exploratory laparotomy, gastrectomy and Billroth II reconstruction, cardiac catheterization. ALLERGIES: No known drug allergies. MEDICATIONS: Anagrelide 0.5 mg b.i.d., aspirin 81 mg daily, folic acid 1 mg daily, furosemide 20 mg daily, hydroxyurea 500 mg daily, iron 150 mg daily, lisinopril 10 mg daily, metoprolol 25 mg daily, Protonix 40 mg daily, potassium 10 mEq daily. SOCIAL HISTORY: Negative for smoking, negative alcohol. FAMILY HISTORY: Noncontributory. The patient was admitted to swing bed status and managed conservatively. His gastrointestinal tract had improved and he was able to tolerate soft foods as well as liquids without any nausea nor vomiting and was having normal bowel movements. During the swing bed status we also bolstered his protein stores with TPN. We also continued to treat his pulmonary emboli with therapeutic Lovenox as well as switching him to Eliquis 10 mg b.i.d. He is now doing well and ambulating well. He does not have any shortness of breath. He does live alone and he was evaluated for home health care. HOMEGOING INSTRUCTIONS: Home with home health care. DIET: Soft low residue diet. MEDICATIONS: Resume previous home medications: Eliquis 5 mg b.i.d., Augmentin 875 mg p.o. b.i.d. 7 days, fluconazole 100 mg p.o. daily for 7 days. We will have him follow up in the office in approximately 2 weeks. Job ID: [id number] DocumentID: [id number] Dictated Date: 04/06/2017 11:18:19 Structural Engineering Project Manager Date: 04/07/2017 05:04:53 Dictated By: MIKE OTOOLE MD
--- NOTE | 2017-04-09 16:09 | Therapy Team Discharge Summary ---
Therapy Discharge Summary Discharge Recommendations Date of Discharge Apr 06, 2017 at 14:30 Therapy D/C Recommendations: Home w/ Family Support, Occupational Therapy Home Care Occupational Therapy Pt was seen for skilled OT to increase his independence in basic self care to allow him to safely return home to live with family. He was admitted to [facility] after acute hospitalization for abdominal pain and PE. He needed a lot of help with toileting initially but could transfer on/off toilet with min assist. He needed setup for eating and grooming. By discharge he needed min assist with bathing and lower body dressing and setup with grooming. He was discharged home with home health OT. See tx plan for goals met. DC OT Decreased Activ Tolerance, Decreased UE Strength, Dependent Transfers, Impaired Self-Care Skills PT Alf Goals Accredited Farm Manager Goals PT Accredited Farm Manager Goals Time Frame: Apr 10, 2017 Transfers (B,C,W/C) (FIM): 6 (met 04/06/17) Sit to Lying (QC): 6 (met 04/06/17) Lying-Sitting on Side/Bed(QC): 6 (met 04/06/17) Sit to Stand (QC): 6 (met 04/06/17) Rollin (met 04/06/17) Does the Patient Walk: Yes Gait (FIM): 6 (met 04/06/17) Distance: >300 ft Walk 50ft with 2 Turns (QC): 6 (met 04/06/17) Walk 150 ft (QC): 6 (met 04/06/17) Gait Level of Assist: 6 (met 04/06/17) Gait Assistive Device: FWW OT Accredited Farm Manager Goals Accredited Farm Manager Goals Time Frame: Apr 17, 2017 Eating (FIM): 6 (not met) Eating (QC): 6 (not met) Groomin (not met) Oral Hygiene (QC): 6 (not met) Bathing(FIM): 5 (not met) Upper Body Dressing(FIM): 5 Lower Body Dressing(FIM): 5 (not met) Toileting(FIM): 6 (not met) Toileting Hygiene (QC): 6 (not met) Toilet/Commode Transfer(FIM): 6 (not met) Toilet/Commode Transfer (QC): 6 (not met) Additional Goals: 1-Demonstrate ADL Tasks, 2-Verbalize Understanding, 3- ImproveStrength/Perri 1=Demonstrate adherence to instructed precautions during ADL tasks. 2=Patient will verbalize/demonstrate understanding of assistive devices/ modifications for ADL. 3=Patient will improve strength/tolerance for activity to enable patient to perform ADL's. SRIDEVI LIVE OT Apr 09, 2017 16:09
== END 2017-04-06 14:30 | disposition home health service (06) | DRG 949 ==
LOC: 4TH 13:54
PROVIDERS: ADMIT Surgery; ATTEND Surgery
DX: Z48.815 Encounter for surgical aftercare following surgery on the digestive system (principal); I26.99 Other pulmonary embolism without acute cor pulmonale; E46 Unspecified protein-calorie malnutrition; K63.9 Disease of intestine, unspecified; I13.0 Hypertensive heart and chronic kidney disease with heart failure and stage 1 through stage 4 chronic kidney disease, or unspecified chronic kidney disease; I50.9 Heart failure, unspecified; N18.9 Chronic kidney disease, unspecified; D47.3 Essential (hemorrhagic) thrombocythemia; B37.81 Candidal esophagitis; K21.0 Gastro-esophageal reflux disease with esophagitis; I25.10 Atherosclerotic heart disease of native coronary artery without angina pectoris; I73.9 Peripheral vascular disease, unspecified; E78.00 Pure hypercholesterolemia, unspecified; N40.0 Benign prostatic hyperplasia without lower urinary tract symptoms; K22.70 Barrett's esophagus without dysplasia; M19.91 Primary osteoarthritis, unspecified site; D51.0 Vitamin B12 deficiency anemia due to intrinsic factor deficiency; K64.0 First degree hemorrhoids; K44.9 Diaphragmatic hernia without obstruction or gangrene; Z90.81 Acquired absence of spleen; Z90.3 Acquired absence of stomach [part of]; Z87.11 Personal history of peptic ulcer disease; Z86.718 Personal history of other venous thrombosis and embolism; Z96.641 Presence of right artificial hip joint; Z86.010 Personal history of colon polyps
CPT/HCPCS: 36415; 80048; 83735; 85025; 94640; 94760

== ENCOUNTER 2017-05-03 14:58 | Outpatient (RCR) | payer MEDICARE, MEDICAID ==
[2017-02-26 15:26] LABS: ABSOLUTE RETIC # 36 10e9/L (24-90); BASOPHILS % (AUTO) 0 % (0-10); EOSINOPHILS # (AUTO) 0.1 10^3/uL (0.0-0.3); EOSINOPHILS % (AUTO) 1 % (0-10); HEMATOCRIT 34 % (40-54); HEMOGLOBIN 10.7 G/DL (13.3-17.7); LYMPHOCYTES # (AUTO) 1.3 X 10^3 (1.0-4.0); LYMPHOCYTES % (AUTO) 11 % (12-44); MEAN CORPUSCULAR HEMOGLOBIN 33 PG (25-34); MEAN CORPUSCULAR HGB CONC 31 G/DL (32-36); MEAN CORPUSCULAR VOLUME 105 FL (80-99); MONOCYTES # (AUTO) 1.8 X 10^3 (0.0-1.0); MONOCYTES % (AUTO) 16 % (0-12); NEUTROPHILS # (AUTO) 8.4 X 10^3 (1.8-7.8); NEUTROPHILS % (AUTO) 73 % (42-75); PLATELET COUNT 216 10^3/uL (130-400); RED BLOOD COUNT 3.28 10^6/uL (4.35-5.85); RED CELL DISTRIBUTION WIDTH 17.1 % (10.0-14.5); RETICULOCYTE % 1.11 % (0.50-2.40); WHITE BLOOD COUNT 11.6 10^3/uL (4.3-11.0)
[2017-02-26 15:47] LABS: ALBUMIN 3.5 GM/DL (3.2-4.5); BILIRUBIN,TOTAL 0.7 MG/DL (0.1-1.0); CALCIUM 9.7 MG/DL (8.5-10.1); CREATININE SERUM 1.47 MG/DL (0.60-1.30); POTASSIUM 4.3 MMOL/L (3.6-5.0)
[2017-03-12 15:10] LABS: BASOPHILS # (AUTO) 0.1 10^3/uL (0.0-0.1); BASOPHILS % (AUTO) 1 % (0-10); EOSINOPHILS % (AUTO) 0 % (0-10); HEMATOCRIT 30 % (40-54); HEMOGLOBIN 9.2 G/DL (13.3-17.7); LYMPHOCYTES # (AUTO) 1.5 X 10^3 (1.0-4.0); LYMPHOCYTES % (AUTO) 13 % (12-44); MEAN CORPUSCULAR HEMOGLOBIN 33 PG (25-34); MEAN CORPUSCULAR HGB CONC 31 G/DL (32-36); MEAN CORPUSCULAR VOLUME 106 FL (80-99); MEAN PLATELET VOLUME 12.2 FL (7.4-10.4); MONOCYTES # (AUTO) 1.3 X 10^3 (0.0-1.0); MONOCYTES % (AUTO) 12 % (0-12); NEUTROPHILS # (AUTO) 8.1 X 10^3 (1.8-7.8); NEUTROPHILS % (AUTO) 74 % (42-75); PLATELET COUNT 489 10^3/uL (130-400); RED BLOOD COUNT 2.82 10^6/uL (4.35-5.85); RED CELL DISTRIBUTION WIDTH 18.5 % (10.0-14.5); WHITE BLOOD COUNT 10.9 10^3/uL (4.3-11.0)
[2017-03-12 15:29] LABS: ALBUMIN 3.2 GM/DL (3.2-4.5); BILIRUBIN,TOTAL 0.6 MG/DL (0.1-1.0); CREATININE SERUM 1.31 MG/DL (0.60-1.30); POTASSIUM 4.3 MMOL/L (3.6-5.0); TOTAL PROTEIN 6.7 GM/DL (6.4-8.2)
[2017-04-16 15:47] LABS: BASOPHILS % (AUTO) 0 % (0-10); EOSINOPHILS % (AUTO) 0 % (0-10); HEMATOCRIT 30 % (40-54); HEMOGLOBIN 9.6 G/DL (13.3-17.7); LYMPHOCYTES # (AUTO) 0.5 X 10^3 (1.0-4.0); LYMPHOCYTES % (AUTO) 3 % (12-44); MEAN CORPUSCULAR HEMOGLOBIN 32 PG (25-34); MEAN CORPUSCULAR HGB CONC 32 G/DL (32-36); MEAN CORPUSCULAR VOLUME 101 FL (80-99); MEAN PLATELET VOLUME 11.3 FL (7.4-10.4); MONOCYTES # (AUTO) 1.2 X 10^3 (0.0-1.0); MONOCYTES % (AUTO) 7 % (0-12); NEUTROPHILS # (AUTO) 14.6 X 10^3 (1.8-7.8); NEUTROPHILS % (AUTO) 89 % (42-75); WHITE BLOOD COUNT 16.4 10^3/uL (4.3-11.0)
[2017-04-16 15:57] LABS: PLATELET COUNT 1224 10^3/uL (130-400)
[2017-04-16 16:19] LABS: ALBUMIN 3.3 GM/DL (3.2-4.5); BILIRUBIN,TOTAL 1.1 MG/DL (0.1-1.0); CALCIUM 9.5 MG/DL (8.5-10.1); CREATININE SERUM 1.47 MG/DL (0.60-1.30); POTASSIUM 2.9 MMOL/L (3.6-5.0); TOTAL PROTEIN 7.3 GM/DL (6.4-8.2)
[2017-04-26 15:14] LABS: BASOPHILS % (AUTO) 0 % (0-10); EOSINOPHILS % (AUTO) 1 % (0-10); HEMATOCRIT 33 % (40-54); HEMOGLOBIN 10.5 G/DL (13.3-17.7); LYMPHOCYTES # (AUTO) 0.9 X 10^3 (1.0-4.0); LYMPHOCYTES % (AUTO) 10 % (12-44); MEAN CORPUSCULAR HEMOGLOBIN 31 PG (25-34); MEAN CORPUSCULAR HGB CONC 32 G/DL (32-36); MEAN CORPUSCULAR VOLUME 99 FL (80-99); MEAN PLATELET VOLUME 11.7 FL (7.4-10.4); MONOCYTES # (AUTO) 0.9 X 10^3 (0.0-1.0); MONOCYTES % (AUTO) 11 % (0-12); NEUTROPHILS # (AUTO) 6.8 X 10^3 (1.8-7.8); NEUTROPHILS % (AUTO) 78 % (42-75); RED BLOOD COUNT 3.34 10^6/uL (4.35-5.85); RED CELL DISTRIBUTION WIDTH 18.2 % (10.0-14.5); WHITE BLOOD COUNT 8.7 10^3/uL (4.3-11.0)
[2017-04-26 15:18] LABS: PLATELET COUNT 1092 10^3/uL (130-400)
[2017-04-26 15:32] LABS: ALANINE AMINOTRANSFERASE 11 U/L (0-55); ALBUMIN 3.3 GM/DL (3.2-4.5); ALKALINE PHOSPHATASE 78 U/L (40-136); BUN/CREATININE RATIO 12; CALCIUM 9.1 MG/DL (8.5-10.1); CARBON DIOXIDE 30 MMOL/L (21-32); CHLORIDE 101 MMOL/L (98-107); CREATININE SERUM 1.12 MG/DL (0.60-1.30); GFR ESTIMATED > 60; GLUCOSE 140 MG/DL (70-105); SODIUM 142 MMOL/L (135-145); TOTAL PROTEIN 7.7 GM/DL (6.4-8.2)
[2017-04-26 15:37] LABS: POTASSIUM 2.1 MMOL/L (3.6-5.0)
[~2017-05-03 14:58] MED LIST changes: +AMOX-358 PO; +APIX5TAB PO; +CYANOCOBALAMIN INJ 1000 MCG/ML (CANCER CENTER) ONE; +DOCU-143 PO; -ENOXAPARIN 60 MG/0.6 ML (LOVENOX) SYR SC SCH; +FERRIC CARBOXYMALTOSE (CANCER) 750 MG in NS (IVPB) CANCER CENTER 250 ML IV SCH; +FLUC100T PO; +NS IV 500 ML (CANCER CENTER) 500 ML ONE
[2017-05-03 15:30] LABS: BASOPHILS % (AUTO) 0 % (0-10); EOSINOPHILS % (AUTO) 0 % (0-10); HEMATOCRIT 31 % (40-54); HEMOGLOBIN 9.7 G/DL (13.3-17.7); LYMPHOCYTES # (AUTO) 0.8 X 10^3 (1.0-4.0); LYMPHOCYTES % (AUTO) 8 % (12-44); MEAN CORPUSCULAR HEMOGLOBIN 32 PG (25-34); MEAN CORPUSCULAR HGB CONC 32 G/DL (32-36); MEAN CORPUSCULAR VOLUME 99 FL (80-99); MEAN PLATELET VOLUME 11.3 FL (7.4-10.4); MONOCYTES % (AUTO) 10 % (0-12); NEUTROPHILS # (AUTO) 8.2 X 10^3 (1.8-7.8); NEUTROPHILS % (AUTO) 81 % (42-75); RED BLOOD COUNT 3.08 10^6/uL (4.35-5.85); RED CELL DISTRIBUTION WIDTH 18.7 % (10.0-14.5)
[2017-05-03 15:35] LABS: PLATELET COUNT 1071 10^3/uL (130-400)
[2017-05-03 15:56] LABS: ALANINE AMINOTRANSFERASE 8 U/L (0-55); ALKALINE PHOSPHATASE 80 U/L (40-136); BILIRUBIN,TOTAL 1.6 MG/DL (0.1-1.0); BUN/CREATININE RATIO 11; CALCIUM 8.3 MG/DL (8.5-10.1); CARBON DIOXIDE 32 MMOL/L (21-32); CHLORIDE 103 MMOL/L (98-107); CREATININE SERUM 0.98 MG/DL (0.60-1.30); GFR ESTIMATED > 60; GLUCOSE 131 MG/DL (70-105); SODIUM 142 MMOL/L (135-145); TOTAL PROTEIN 6.6 GM/DL (6.4-8.2)
[2017-05-03 16:14] LABS: POTASSIUM 2.1 MMOL/L (3.6-5.0)
[2017-05-03] MEDS ORDERED: POTASSIUM CHL IV ONE (16:23)
[2017-05-03] MEDS ORDERED: MAGNESIUM SULFATE IV ONE (16:23)
[2017-05-03] MEDS ORDERED: [UNRECOGNIZED DRUG - OTHER] IV ONE (16:23)
== END 2017-05-27 | disposition home or self-care (01) ==
LOC: ONC 14:58
PROVIDERS: ATTEND Internal Medicine Hematology & Oncology
DX: D69.6 Thrombocytopenia, unspecified (principal); D51.3 Other dietary vitamin B12 deficiency anemia; K58.9 Irritable bowel syndrome, unspecified; R73.9 Hyperglycemia, unspecified; K21.9 Gastro-esophageal reflux disease without esophagitis; Z79.899 Other long term (current) drug therapy; Z98.890 Other specified postprocedural states
CPT/HCPCS: 36415; 80053; 82728; 83540; 85025; 85045; 96360; 96361; 96365; 96372; 99213

== ENCOUNTER 2017-06-14 14:56 | Inpatient (IN) | payer MEDICARE, MEDICAID ==
[~2017-06-14] VITALS: Ht 175.3 cm; Wt 64.9 kg
[~2017-06-14 14:56] MED LIST changes: -CYANOCOBALAMIN INJ 1000 MCG/ML (CANCER CENTER) ONE; -FERRIC CARBOXYMALTOSE (CANCER) 750 MG in NS (IVPB) CANCER CENTER 250 ML IV SCH; -NS IV 500 ML (CANCER CENTER) 500 ML ONE
[2017-06-14 15:10] VITALS: BP 139/67
[2017-06-14] MEDS ORDERED: diphenhydrAMINE 25 MG TAB (BENADRYL) PO PRN (15:15)
[2017-06-14] MEDS ORDERED: ALPRAZolam 0.25 MG (XANAX) TAB PO PRN (15:15)
[2017-06-14] MEDS ORDERED: MILK OF MAGNESIA 400 MG/5 ML 30 ML UDC PO PRN (15:15)
[2017-06-14] MEDS ORDERED: SENNA W/DOCUSATE (SENOKOT S) TABLET PO PRN (15:15)
[2017-06-14] MEDS ORDERED: ONDANSETRON 4 MG/2 ML (SDV) Z0FRAN IV PRN (15:15)
[2017-06-14] MEDS ORDERED: PATIENT MAY USE OWN MEDS, ALL PO SCH (15:15)
[2017-06-14] MEDS ORDERED: ACETAMINOPHEN 325 MG TABLET/CAPLET (TYLENOL) PO PRN (15:15)
[2017-06-14] MEDS ORDERED: HYDR500C2 PO (15:45)
[2017-06-14] MEDS ORDERED: APIX5TAB PO (15:45)
[2017-06-14] MEDS ORDERED: DOCU-143 PO (15:55)
--- NOTE | 2017-06-14 15:57 | Oncology History & Physical ---
Visit Information Visit Information Date of Admission Jun 14, 2017 at 15:00 Attending Physician Vahid Talley MD Admitting Physician [facility] Chief Complaint Weak, both leg swelling, not able to eat much at home, loose stools Interval History Mr. Brown is a 71 year old while man came to the cancer center for f/u thrombocythemia on Hydrea treatment. He also has colonic stricture and required two in-pt admissions over last 2 months due to n/v and dehydration. We noticed his potassium was low in the cancer center clinic 2.4 and told his grandson ( his nurse behavioral health care) to cotton picker the potassium medication last month but he did not do it. When he came to the clinic today, his potassium was 1.9. He is weak and has both leg swelling. He also has loose stools. He has not been eat much at home. His grandson was not able to take adequate care for the patient. He was living on meals on wheels. He is in poor personal hygiene. I consulted the patient on: 06/14/17 15:48 Time Seen by Provider: 15:15 Constitutional: weakness EENTM: blurred vision Respiratory: no symptoms reported Cardiovascular: edema Gastrointestinal: constipation, diarrhea, nausea Genitourinary: no symptoms reported Musculoskeletal: muscle weakness Skin: no symptoms reported Psychiatric/Neurological: No Symptoms Reported Health Status Allergies Coded Allergies: No Known Drug Allergies (Verified , 06/14/17) Home Medications Apixaban (Eliquis) 5 Mg Tablet, 5 MG PO BID, (Reported) LAST FILLED #60 05-11-17 Aspirin (Aspirin EC) 81 Mg Tablet.dr, 81 MG PO DAILY, (Reported) Docusate Sodium (Colace) 100 Mg Capsule, 100 MG PO DAILY PRN for CONSTIPATION- 1ST LINE, (Reported) Folic Acid (Folic Acid) 1 Mg Tablet, 1 MG PO DAILY, (Reported) LAST FILLED #30 05-11-17 Hydroxyurea (Hydroxyurea) 500 Mg Capsule, 500 MG PO BID, (Reported) LAST FILLED #90 04-25-17 Iron Polysaccharide Complex (Poly-Iron) 150 Mg Capsule, 150 MG PO BID, (Reported ) Metoprolol Succinate (Metoprolol Succinate) 25 Mg Tab.er.24h, 25 MG PO DAILY, ( Reported) Pantoprazole Sodium (Pantoprazole Sodium) 40 Mg Tablet.dr, 40 MG PO DAILY, ( Reported) Potassium Chloride (Potassium Chloride) 10 Meq Tablet.er, 10 MEQ PO BID, ( Reported) [id number]-[id number] Hx Patient Social History Marrital Status: single Alcohol Use: Denies Use Smoking Status: Former Smoker 2nd Hand Smoke Exposure: No Recent Hopitalizations: No Immunizations Up To Date Tetanus Booster (TDap): Unknown Data Review Labs Laboratory Tests 06/15/17 05:40 Laboratory Tests 06/15/17 05:40: Potassium Level 2.2*L, Chloride Level 109H, Blood Urea Nitrogen 31H, Glucose Level 112H, Calcium Level 7.9L, Total Protein 5.1L, Albumin 2.6L Physical Exam Vital Signs Vital Sign - Last 12Hours 06/14/17 15:10 Temp 97.6 Pulse 66 Resp 18 B/P (MAP) 139/67 (91) Pulse Ox 99 O2 Delivery Room Air Capillary Refill : General Appearance: No Apparent Distress, Thin Neck: Non Tender, Supple Respiratory: Chest Non Tender, Lungs Clear, No Accessory Muscle Use, No Respiratory Distress Cardiovascular: Regular Rate, Rhythm, No Gallop, No JVD, Bradycardia Gastrointestinal: Non Tender, Soft Extremity: Non Tender, No Calf Tenderness, Pedal Edema, Swelling Neurologic/Psychiatric: Alert, Oriented x3 Lymphatic: No Adenopathy Impression & Plan Impression & Plan IMP: 1. Severe hypokalemia serum K 1.9 2. Hypomagnesemia 3. Colonic stricture, not a surgical candidate for surgery per Dr Contreras last evaluation due patient poor nutrition and performance status. 4. Home/social issues. Pt does not have adequate care for his needs at home 5. 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 6. Thrombocythemia on Hydrea 7. h/o splenectomy 8. Malnutrition, low serum albumin and protein Plan: 1. Admit to in-pt for IV potassium as well as PO potassium 2. Telemetry monitoring 3. receiving worker consultation for his home situation and placement 4. Replace Mg++ IV 5. Anticipate to stay in-pt for 3 days. VAHID TALLEY MD Jun 14, 2017 15:57
[2017-06-14] MEDS: D5 1/2 NS 1000 ML IV SOLUTION 1,000 ML IV SCH (16:00)
[2017-06-14] MEDS: MAGNESIUM 1 GM/100 ML IVPB 100 ML IV SCH ×3 (16:02→18:03)
[2017-06-14] MEDS: KCL 10 MEQ TAB (MICRO K) PO SCH (16:02)
[2017-06-14] MEDS: POTASSIUM CL 10MEQ/50ML IVPB 50 ML IV SCH ×4 (16:02→18:09)
[2017-06-14] MEDS ORDERED: POTA10TA10 PO (16:04)
[2017-06-14] MEDS ORDERED: DOCUSATE SODIUM 100 MG (COLACE) CAP PO PRN (16:30)
[2017-06-14] MEDS ORDERED: KCL 10 MEQ TAB (MICRO K) PO SCH (17:30)
[2017-06-14] MEDS ORDERED: INFLUENZA TRIvalent 2017-2018 0.5 ML/45 MCG SYR IM ONE (17:45)
[2017-06-14] MEDS: IRON POLYSAC 150 MG CAP (NIFEREX) PO SCH (18:03)
[2017-06-14 20:00] VITALS: BP 122/71
[2017-06-14] MEDS: APIXABAN 5 MG (ELIQUIS) TABLET PO SCH (20:52)
[2017-06-14] MEDS ORDERED: HYDROXYUREA 500 MG CAP (HYDREA) PO SCH (21:00)
[2017-06-14] MEDS ORDERED: KCL 20 MEQ TAB (K-DUR) PO SCH (21:00)
[2017-06-15] VITALS: BP 139/76
[2017-06-15 04:00] VITALS: BP 116/59
[2017-06-15] MEDS: D5 1/2 NS 1000 ML IV SOLUTION 1,000 ML IV SCH (05:30)
[2017-06-15] MEDS: IRON POLYSAC 150 MG CAP (NIFEREX) PO SCH (05:31)
[2017-06-15] MEDS: KCL 10 MEQ TAB (MICRO K) PO SCH (05:31)
[2017-06-15 06:41] LABS: ALANINE AMINOTRANSFERASE 11 U/L (0-55); ALBUMIN 2.6 GM/DL (3.2-4.5); ALKALINE PHOSPHATASE 75 U/L (40-136); BILIRUBIN,TOTAL 0.8 MG/DL (0.1-1.0); BUN/CREATININE RATIO 28; CALCIUM 7.9 MG/DL (8.5-10.1); CARBON DIOXIDE 21 MMOL/L (21-32); CHLORIDE 109 MMOL/L (98-107); CREATININE SERUM 1.09 MG/DL (0.60-1.30); GFR ESTIMATED > 60; GLUCOSE 112 MG/DL (70-105); SODIUM 141 MMOL/L (135-145); TOTAL PROTEIN 5.1 GM/DL (6.4-8.2)
[2017-06-15 06:44] LABS: POTASSIUM 2.2 MMOL/L (3.6-5.0)
[2017-06-15] MEDS ORDERED: INFLUENZA TRIvalent 2017-2018 0.5 ML/45 MCG SYR IM ONE (07:00)
[2017-06-15] MEDS ORDERED: PANTOPRAZOLE 40 MG (PROTONIX) TAB PO SCH (07:00)
[2017-06-15 07:20] VITALS: BP 113/63
[2017-06-15] MEDS ORDERED: D5 1/2 NS 1000 ML IV SOLUTION 1,000 ML IV SCH (08:15)
[2017-06-15] MEDS: APIXABAN 5 MG (ELIQUIS) TABLET PO SCH (08:35)
[2017-06-15] MEDS: POTASSIUM CL 10MEQ/50ML IVPB 50 ML IV SCH ×6 (08:35→14:33)
[2017-06-15] MEDS ORDERED: ASPIRIN E.C. 81 MG (ECOTRIN) TAB PO SCH (09:00)
[2017-06-15] MEDS ORDERED: FOLIC ACID 1 MG TAB PO SCH (09:00)
[2017-06-15 11:57] VITALS: BP 107/66
--- NOTE | 2017-06-15 13:09 | Oncology Progress Note ---
Subjective Time Seen by Provider: 09:00 Subjective/Events-last exam Pt is feeling better. Wants to go home. 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 Data Review Labs Physical Exam Vital Signs Vital Sign - Last 12Hours 06/14/17 15:10 Temp 97.6 Pulse 66 Resp 18 B/P (MAP) 139/67 (91) Pulse Ox 99 O2 Delivery Room Air Capillary Refill : General Appearance: No Apparent Distress HEENT: PERRL/EOMI Neck: Non Tender, Supple Respiratory: No Accessory Muscle Use, No Respiratory Distress Cardiovascular: Regular Rate, Rhythm Gastrointestinal: Non Tender, Soft Extremity: Pedal Edema Neurologic/Psychiatric: Alert, Oriented x3 Impression & Plan Impression & Plan IMP: 1. Severe hypokalemia serum K. Slowly improving. Will need 6 more runs today. 2. Hypomagnesemia, s/p 3 g replacement yesterday. 3. Colonic stricture, not a surgical candidate for surgery per Dr Contreras last evaluation due patient poor nutrition and performance status. 4. Home/social issues. Pt does not have adequate care for his needs at home 5. 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 6. Thrombocythemia on Hydrea 7. h/o splenectomy 8. Malnutrition, low serum albumin and protein Plan: 1. Possible home today with home health care if social research assistant can figure out a solution at home. 2. Telemetry monitoring for now. 3. Slow down IVF. 4. see me at cancer center in 1-2 weeks. Clinical Quality Measures DVT/VTE Risk/Contraindication: Risk Factor Score Per Nursin RFS Level Per Nursing on Admit: 3=High ANNE TALLEY MD Jun 15, 2017 13:09
[2017-06-15 16:29] VITALS: BP 107/66
--- NOTE | 2017-06-18 16:56 | Oncology Discharge Summary ---
Diagnosis/Chief Complaint Date of Admission Jun 14, 2017 at 15:00 Date of Discharge Jun 15, 2017 at 16:32 Discharge Diagnosis 1. Severe hypokalemia serum K 1.9. s/p IV replacement. 2. Hypomagnesemia, s/p 3 g replacement 3. Colonic stricture, not a surgical candidate for surgery per Dr Contreras last evaluation due patient poor nutrition and performance status. 4. Home/social issues. 5. 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 6. Thrombocythemia on Hydrea 7. h/o splenectomy 8. Malnutrition, low serum albumin and protein Reason Hospital Visit Mr. Brown is a 71 year old while man came to the [facility] for f/u thrombocythemia on Hydrea treatment. He also has colonic stricture and required two in-pt admissions over last 2 months due to n/v and dehydration. We noticed his potassium was low in the [facility] clinic 2.4 and told his grandson ( his housekeeper child care) to roller picker the potassium medication last month but he did not do it. When he came to the clinic again, his potassium was 1.9. He is weak and has both leg swelling. He also has loose stools. He has not been eat much at home. His grandson was not able to take adequate care for the patient. He was living on meals on wheels. He was in poor personal hygiene. We admitted him for IV K and Mg++ replacement. He had 100meq IV KCI and 40mg oral KCL. He also got 3g magnesium IV. He was feeling good next day and wanted to go home. breakdown worker set up home health for him on discharge. Discharge condition: Stable and improved. F/u with Dr Talley at [facility] in 2 weeks. Discharge Summary Discharge Instructions to patient/family Please see electronic discharge instructions given to patient. Discharge Medications Reviewed and agree with Discharge Medication list on patient's Discharge Instruction sheet Clinical Quality Measures DVT/VTE Risk/Contraindication: Risk Factor Score Per Nursin RFS Level Per Nursing on Admit: 3=High ANNE TALLEY MD Jun 18, 2017 16:56
== END 2017-06-15 16:32 | disposition home health service (06) | DRG 641 ==
LOC: 4TH 15:00
PROVIDERS: ADMIT Internal Medicine Hematology & Oncology; ATTEND Internal Medicine Hematology & Oncology
DX: E87.6 Hypokalemia (principal); E83.42 Hypomagnesemia; E46 Unspecified protein-calorie malnutrition; K56.690 Other partial intestinal obstruction; D47.3 Essential (hemorrhagic) thrombocythemia; R00.1 Bradycardia, unspecified; R19.7 Diarrhea, unspecified; D51.0 Vitamin B12 deficiency anemia due to intrinsic factor deficiency; R60.0 Localized edema; Z79.899 Other long term (current) drug therapy; Z90.3 Acquired absence of stomach [part of]; Z90.81 Acquired absence of spleen; Z87.891 Personal history of nicotine dependence; Z74.1 Need for assistance with personal care
CPT/HCPCS: 36415; 80053

== ENCOUNTER 2017-10-18 13:45 | Emergency (ER) | payer MEDICARE, MEDICAID ==
[~2017-10-18] VITALS: Ht 167.6 cm; Wt 63.5 kg
[~2017-10-18 13:45] MED LIST changes: +POTA-51 PO; +POTA10CA43 PO; +SODI650T PO
[2017-10-18] MEDS ORDERED: RX-MUPIROCIN (BACTROBAN) 2% OINT 22 GM TUBE TOP STA (14:31)
[2017-10-18 14:44] VITALS: BP 103/65
[2017-10-18] MEDS ORDERED: DOXY100T2 PO (14:45)
--- NOTE | 2017-10-18 14:45 | ED Integumentary General ---
General Chief Complaint: Bite-Animal/Human/Insect Stated Complaint: SPIDER BITE Nursing Triage Note: patient here for a spider bite that he has had for 3 days History of Present Illness Date Seen by Provider: October 18, 2017 Time Seen by Provider: 14:15 Initial Comments 72-year-old male comes by ambulance for concerns over a spider bite on his left posterior shoulder. The patient and his family reports that it has been present for the last 3 days but has grown substantially in size. He's had no pre-arrival treatment. The patient and family deny seeing a spider. Noted to have poor personal hygiene with strong body and urine odor present. Discussed with grandchildren that he may need assistance in bathing. Timing/Duration: getting worse Location: torso (Left upper back) Possible Cause: insect sting Associated Symptoms: denies symptoms Allergies and Home Medications Allergies Coded Allergies: No Known Drug Allergies (Verified , 06/14/17) Home Medications Apixaban 5 Mg Tablet, 5 MG PO BID, (Reported) Aspirin 81 Mg Tablet.dr, 81 MG PO DAILY, (Reported) Docusate Sodium 100 Mg Capsule, 100 MG PO DAILY PRN for CONSTIPATION-1ST LINE, ( Reported) Doxycycline Hyclate 100 Mg Tablet, 100 MG PO BID Prescribed by: JANELLE CONTRERAS on 10/18/17 1445 Folic Acid 1 Mg Tablet, 1 MG PO DAILY, (Reported) LAST FILLED #30 05-11-17 Hydroxyurea 500 Mg Capsule, 500 MG PO BID, (Reported) LAST FILLED #90 04-25-17 Iron Polysaccharide Complex 150 Mg Capsule, 150 MG PO BID, (Reported) Metoprolol Succinate 25 Mg Tab.er.24h, 25 MG PO DAILY, (Reported) Pantoprazole Sodium 40 Mg Tablet.dr, 40 MG PO DAILY, (Reported) Potassium Chloride 20 Meq Tablet.er, 20 MEQ PO BID Prescribed by: EVELYN KONG on 06/24/17 152 Sodium Bicarbonate 650 Mg Tablet, 650 MG PO QIDACHS Prescribed by: EVELYN KONG on 06/24/17 1529 Patient Home Medication List Home Medication List Reviewed: Yes Constitutional: no symptoms reported, see HPI Skin: see HPI, change in color, lesions All Other Systems Reviewed Negative Unless Noted: Yes Past Infxlvr-Lwoqvp-Sqmcpo Hx Past Med/Social Hx: Reviewed Nursing Past Med/Soc Hx Patient Social History 2nd Hand Smoke Exposure: No Recent Foreign Travel: No Contact w/Someone Who Travel: No Recent Infectious Disease Expo: No Recent Hopitalizations: No Immunizations Up To Date Tetanus Booster (TDap): Unknown PED Vaccines UTD: No Seasonal Allergies Seasonal Allergies: No Past Medical History Surgeries: Yes Abdominal, Appendectomy, Cardiac, Joint Replacement, Orthopedic, Rectal Respiratory: Yes (ASPIRATION PNEUMONIA/SEPSIS 12/2015) Currently Using CPAP: No Currently Using BIPAP: No Cardiac: Yes (CAD, CARDIAC CATHS-NO INTERVENTION; CHF; PVD RIGHT LEG) Chronic Edema/Swelling, Coronary Artery Disease, Deep Vein Thrombosis, High Cholesterol, Hypertension, Peripheral Vascular Neurological: Yes Reproductive Disorders: No Sexually Transmitted Disease: No HIV/AIDS: No Genitourinary: Yes (RENAL CYSTS; INTRERMITTENT RENAL INSUFFICIENCY) Benign Prostatic Hyperpl Gastrointestinal: Yes (DIVERTICULITIS 01/2017; CHRONIC BILIRUBIN ELEVATION) Gastroesophageal Reflux, Rodrigues's Esophagus, Gastrointestinal Bleed, Diverticulosis, Esophagitis, Hiatal Hernia, Ulcer Musculoskeletal: Yes Arthritis Endocrine: No HEENT: Yes (POOR DENTITION) Loss of Vision: Denies Hearing Impairment: Denies Cancer: Yes (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) Skin Psychosocial: No Integumentary: Yes (SKIN CANCER) Blood Disorders: Yes Adverse Reaction/Blood Tranf: No Family Medical History No Pertinent Family Hx Physical Exam Vital Signs Vital Signs - First Documented 10/18/17 13:45 Temp 97.9 Pulse 65 Resp 18 B/P (MAP) 103/65 (78) Pulse Ox 94 Capillary Refill : Less Than 3 Seconds General Appearance: WD/WN, no apparent distress Cardiovascular: normal peripheral pulses, regular rate, rhythm Respiratory: chest non-tender, lungs clear Gastrointestinal: normal bowel sounds, non tender, soft, distended Extremities: normal range of motion, non-tender Neurologic/Psychiatric: no motor/sensory deficits, alert, normal mood/affect Skin: normal color, warm/dry, other (2 cm x 2 cm excoriated lesion to the left posterior shoulder. Mild erythema and surrounding area. No induration or fluctuance noted. No active drainage or odor from wound site.) Progress/Results/Core Measures Results/Orders My Orders Orders - JANELLE CONTRERAS Rx-Mupirocin 2% Oint (Rx-Bactroban) (10/18/17 14:31) Vital Signs/I&O 10/18/17 10/18/17 13:45 14:44 Temp 97.9 97.9 Pulse 65 65 Resp 18 18 B/P (MAP) 103/65 (78) 103/65 (78) Pulse Ox 94 94 Blood Pressure Mean: 78 Progress Progress Note : Time: 14:15 Progress Note Initial evaluation completed. 1430 wound cleansed with peroxide and Bactroban ointment applied. Covered with sterile Band-Aid. Discharge instructions and return precautions reviewed. Departure Impression Primary Impression: Spider bite wound Qualified Codes: T63.301A - Toxic effect of unspecified spider venom, accidental (unintentional), initial encounter Disposition: HOME, SELF-CARE Condition: Improved Departure-Patient Inst. Decision time for Depature: 14:35 Referrals: [facility] [place] Primary Care Physician Patient Instructions: Insect Bites and Stings (DC) Add. Discharge Instructions: Clean area to left upper back with peroxide after showering. Apply antibiotic ointment 3 times a day and keep covered with Band-Aid. Take antibiotic as prescribed. Keep pressure off this area Return to the emergency department for urgent health care needs All discharge instructions reviewed with patient and/or family. Voiced understanding. Scripts Doxycycline Hyclate (Doxycycline Hyclate) 100 Mg Tablet 100 MG PO BID, #14 TAB 0 Refills Prov: JANELLE CONTRERAS 10/18/17 JANELLE CONTRERAS October 18, 2017 14:45
--- OUTSIDE RECORDS SUMMARY | 2017-10-18 17:38 | XMS REPORT ---
Author Author ANDRES ONTIVEROS [facility] Address [address] [place] [address] Care Team Providers Care Engineering Scientist Name Role Phone ANDRES ONTIVEROS Unavailable PROBLEMS Type Condition ICD9-CM Code NUG79-VS Code Onset Dates Condition Status SNOMED Code Problem Acute deep vein thrombosis (DVT) of tibial vein of right lower extremity I82.441 Active 899682683717982 Problem GERD (gastroesophageal reflux disease) K21.9 Active 229937119 Problem Renal insufficiency N28.9 Active 088440325 Problem BPH (benign prostatic hyperplasia) N40.0 Active 280456463 Problem Chronic systolic congestive heart failure I50.22 Active 386682657 Problem Thrombocythemia D47.3 Active 5527000 Problem Peripheral vascular disease I73.9 Active 205248488 Problem Diverticulitis of large intestine without perforation or abscess without bleeding K57.32 Active 3019606 Problem Sprain of foot, left, initial encounter S93.602A Active 95248477 Problem Anemia D64.9 Active 034595846 Problem 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 438168979 Problem Arthritis M19.90 Active 6005885 ALLERGIES No Known Allergies ENCOUNTERS Encounter Location Date Diagnosis [facility] [address] [address] September, Medicare annual wellness visit, initial Z00.00 ; Peripheral vascular disease I73.9 ; Chronic systolic congestive heart failure I50.22 ; GERD (gastroesophageal reflux disease) K21.9 ; Thrombocythemia D47.3 ; Renal insufficiency N28.9 ; Arthritis M19.90 and BPH (benign prostatic hyperplasia) N40.0 [facility] [id number] [address] Aug, [facility] [id number] [place] [address] Jul, Injury of chest wall, initial encounter S29.9XXA ; Hypokalemia E87.6 ; Thrombocythemia D47.3 ; Peripheral vascular disease I73.9 and Chronic systolic congestive heart failure I50.22 [place] [id number] [place] [address] Jul, [place] [address] [address] Jul, [place] [address] [address] Jun, [address] [address] Jun, Chronic systolic congestive heart failure I50.22 and BPH ( benign prostatic hyperplasia) N40.[address] [address] Apr, Weight loss, abnormal R63.[address] [address] Feb, Diverticulitis of large intestine without perforation or abscess without bleeding K57.32 [place] [id number] [place] [address] Jan, [place] [id number] [place] [address] Oct, Leg edema, right R60.[address] [address] 02 Oct, 2016 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 [address] September, 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 [place] [id number] [place] [address] Aug, Arthritis M19.90 [address] [address] Aug, [facility] [id number] [place] [address] Aug, Osteopenia of left foot M85.872 [facility] [id number] [place] [address] 14 Jun, 2016 Chronic systolic congestive heart failure I50.22 [facility] [id number] [place] [address] May, Left foot pain M79.672 and Sprain of foot, left, initial encounter S93.602A [place] [id number] [place] [address] Feb, Chronic systolic congestive heart failure I50.22 [facility] [id number] [place] [address] Jan, [facility] [id number] [place] [address]- [address] Dec, [facility] [id number] [place] [address] September, Chronic systolic congestive heart failure I50.22 and Acute deep vein thrombosis (DVT) of tibial vein of right lower extremity I82.441 [place] [address] [place] [address] Aug, Acute deep vein thrombosis (DVT) of tibial vein of right lower extremity I82.441 and Chronic systolic congestive heart failure I50.22 [facility] [address] [place] [address] Jul, DVT (deep venous thrombosis) I82.409 [facility] [address] [place] [address]- [address] Jul, Acute deep vein thrombosis (DVT) of tibial vein of right lower extremity I82.441 and Thrombocythemia D47.3 [place] [address] [place] [address] Jul, Acute deep vein thrombosis (DVT) of tibial vein of right lower extremity I82.441 and Renal insufficiency N28.9 [facility] [id number] [place] [address] Jul, Right ankle pain M25.571 and Leg edema, right R60.0 [facility] [id number] [place] [address]- [address] Jul, Gastroenteritis K52.9 [facility] [id number] [place] [address]- [address] September, Neuropathy 355.9 ; Onychomycosis 110.1 and Xerosis of skin 706.8 [facility] [id number] [place] [address]- [address] Aug, [facility] [id number] [place] [address]- [address] Aug, [facility] [id number] [place] [address]- [address] Aug, [facility] [id number] [place] [address]- [address] Jun, [facility] [id number] [address] Jun, [facility] [id number] [place] [address]- [address] Jun, [facility] [id number] [place] [address] 315794- 18[address] Jun, [facility] [id number] [place] [address] 678163- [address] Mar, [facility] [id number] Mar, [facility] [id number] [place] [address] Dec, [facility] [place] [facility] [address] [id number] [place] [address] Dec, [facility] [place] [facility] [address] [id number] [place] [address] Nov, [facility] [place] [facility] [address] [id number] [place] [address] Nov, [facility] [place] [facility] [address] [id number] [place] [address] Nov, [facility] [place] [facility] [address] [id number] [place] [address] Nov, [facility] [place] [facility] [address] [id number] [place] [address] Nov, [facility] [place] [facility] [address] [id number] [place] [address] Nov, [facility] [place] [facility] [address] [id number] [place] [address] Oct, [facility] [place] [facility] [address] [id number] [place] [address] Oct, [facility] [place] [facility] [address] [id number] [place] [address]- [address] Oct, [facility] [place] [facility] [address] [id number] [place] [address] Oct, [facility] [place] [facility] [address] [id number] [place] [address] September, [facility] [place] [facility] [address] [id number] [place] [address] September, [facility] [place] [facility] [address] [id number] [place] [address] September, [facility] [place] [facility] [address] [id number] [place] [address] Dec, [facility] [place] [facility] [address] [id number] [address] Dec, [facility] [address] [address] Nov, [facility] [id number] [address] Mar, [facility] [address] [address] Mar, [facility] [address] [address] Mar, [facility] [address], [place] [address] Apr, [facility] [address] [address] Mar, [facility] [id number] [address] Nov, IMMUNIZATIONS No Known Immunizations SOCIAL HISTORY Never Assessed REASON FOR VISIT [facility] follow [facility] - state he had an infection in his abdomen was in hospital for 1 week- Muna Vasquez RN PLAN OF CARE Activity Details Follow Up 4 Weeks Reason: VITAL SIGNS Height 68 in 2017-02-19 Weight 134 lbs 2017-02-19 Temperature 97.8 degrees Fahrenheit 2017-02-19 Heart Rate 62 bpm 2017-02-19 Respiratory Rate 16 2017-02-19 BMI 20.37 kg/m2 2017-02-19 Blood pressure systolic 102 mmHg 2017-02-19 Blood pressure diastolic 72 mmHg 2017-02-19 MEDICATIONS Medication Instructions Dosage Frequency Start Date End Date Duration Status Lasix 20 MG Orally Once a day 1 tablet 24h Active Poly Iron PN by oral route 2 times a day 150 mg 12h Active Anagrelide HCl 0.5 MG Orally Twice a day 1 capsule 12h Active Folic Acid 1 MG Orally Once a day 1 tablet 24h Active Klor-Con 10 10 MEQ Orally Once a day 1 tablet with food 24h Active Toprol XL 25 MG Orally Once a day 1 tablet 24h Active Lisinopril 10 MG Orally Once a day 1 tablet 24h Active Hydroxyurea 500 MG Orally Once a day 1 capsule 24h Active Protonix 40 MG Orally Once a day 1 tablet 24h Active Aspirin 81 mg 1 Tablet by Oral route 1 time per day September, Active RESULTS Name Result Date Reference Range CBC 2017-02-19 WBC 14.1 3.4-10.8 RBC 3.11 4.14-5.80 Hemoglobin 10.1 12.6-17.7 Hematocrit 32.2 37.5-51.0 MCV 104 79-97 MCH 32.5 26.6-33.0 MCHC 31.4 31.5-35.7 RDW 18.5 12.3-15.4 Platelets 925 150-379 Neutrophils 77 Not Estab. Lymphs 9 Not Estab. Monocytes 13 Not Estab. Eos 0 Not Estab. Basos 0 Not Estab. Immature Cells Neutrophils (Absolute) 10.9 1.4-7.0 Lymphs (Absolute) 1.2 0.7-3.1 Monocytes(Absolute) 1.9 0.1-0.9 Eos (Absolute) 0.0 0.0-0.4 Baso (Absolute) 0.0 0.0-0.2 Immature Granulocytes 1 Not Estab. Immature Grans (Abs) 0.1 0.0-0.1 NRBC 1 0 - 0 Hematology Comments: Note: BMP 2017-02-19 Glucose, Serum 96 65-99 BUN 18 8-27 Creatinine, Serum 1.22 0.76-1.27 eGFR If NonAfricn Am 59 >59 eGFR If Africn Am 68 >59 BUN/Creatinine Ratio 15 10-24 Sodium, Serum 139 134-144 Potassium, Serum 4.7 3.5-5.2 Chloride, Serum 96 96-106 Carbon Dioxide, Total 26 18-29 Calcium, Serum 9.3 8.6-10.2 PROCEDURES Procedure Date Ordered Result Body Site LAB NOT BILLED BY [facility] Feb 19, 2017 VENIPUNCT, ROUTINE* Feb 19, 2017 [facility] VISIT ESTABLISHED PATIENT Feb 19, 2017 INSTRUCTIONS MEDICATIONS ADMINISTERED No Known Medications MEDICAL (GENERAL) HISTORY Type Description Date Medical History stress test 09/14/14 Dr Ayala EF 48% Medical History acid reflux Medical History Thrombocythemia Medical History Anemia Medical History Rodrigues's esophagus Surgical History right hip replacement Surgical History pins placed in left hip(thigh) Surgical History gastrectomy Surgical History splenectomy Hospitalization History GI Bleed, aspiration pneumonia--[facility] 01/17/16 Hospitalization History diverticulitis 03/2017 Hospitalization History low potassium 06/2017
--- OUTSIDE RECORDS SUMMARY | 2017-10-18 17:39 | XMS REPORT ---
Author Author ANDRES ONTIVEROS Organization [facility] Address [address] [place] [address] Care Team Providers Care Channel Sales Director Name Role Phone ANDRES ONTIVEROS Unavailable PROBLEMS Type Condition ICD9-CM Code [id number] Code Onset Dates Condition Status SNOMED Code Problem Thrombocythemia D47.3 Active 3457751 Problem Renal insufficiency N28.9 Active 565111589 Problem Acute deep vein thrombosis (DVT) of tibial vein of right lower extremity I82.441 Active 332306173397335 Problem Chronic systolic congestive heart failure I50.22 Active 467530359 Problem BPH (benign prostatic hyperplasia) N40.0 Active 030990758 Problem Diverticulitis of large intestine without perforation or abscess without bleeding K57.32 Active 1196684 Problem 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 109105819 Problem Anemia D64.9 Active 597498907 Problem GERD (gastroesophageal reflux disease) K21.9 Active 060052023 Problem Arthritis M19.90 Active 6443057 Problem Sprain of foot, left, initial encounter S93.602A Active 49387106 ALLERGIES No Information ENCOUNTERS Encounter Location Date Diagnosis [facility] [id number] [place] [address] 40777- 2753 Aug, Medicare annual wellness visit, initial Z00.00 [facility] [id number] [place] [address] 07183- 7611 Jul, [facility] [id number] [place] [address] 43864- 5836 Jul, [facility] [id number] [place] [address] 09578- 5148 Jun, [facility] [id number] [place] [address] 61521- 0112 Jun, Chronic systolic congestive heart failure I50.22 and BPH ( benign prostatic hyperplasia) N40.0 [place] [id number] [place] [address] 72397- 9856 Apr, Weight loss, abnormal R63.4 [place] [id number] [place] [address] 00629- 5585 Feb, Diverticulitis of large intestine without perforation or abscess without bleeding K57.32 [place] [id number] [place] [address] 70533- 9013 Jan, [place] [id number] [place] [address] 73631- 5628 Oct, Leg edema, right R60.0 [place] [address] [address]- 2120 Oct, 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 [place] [address] 79667- 0200 September, 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 [place] [id number] [place] [address] 72480- 7346 Aug, Arthritis M19.90 [place] [id number] [place] [address] 46591- 0698 Aug, [facility] [place] [id number] [place] [address] 77367 -1032 Aug, Osteopenia of left foot M85.872 [place] [id number] [place] [address] 57970- 8547 14 Jun, 2016 Chronic systolic congestive heart failure I50.22 [facility] [place] [id number] [place] [address] 73021 -2924 May, Left foot pain M79.672 and Sprain of foot, left, initial encounter S93.602A [place] [id number] [place] [address] 94874- 6637 Feb, Chronic systolic congestive heart failure I50.22 [facility] [address] [address] Jan, [facility] [id number] [place] [address] 81853- 9624 Dec, [facility] [id number] [place] [address] 02193- 8166 September, Chronic systolic congestive heart failure I50.22 and Acute deep vein thrombosis (DVT) of tibial vein of right lower extremity I82.441 [facility] [id number] [place] [address] 32981- 0768 Aug, Acute deep vein thrombosis (DVT) of tibial vein of right lower extremity I82.441 and Chronic systolic congestive heart failure I50.22 [place] [id number] [place] [address] 58592- 3649 Jul, DVT (deep venous thrombosis) I82.409 [place] [id number] [place] [address] 70252- 1232 Jul, Acute deep vein thrombosis (DVT) of tibial vein of right lower extremity I82.441 and Thrombocythemia D47.3 [place] [id number] [place] [address] 21429- 2590 Jul, Acute deep vein thrombosis (DVT) of tibial vein of right lower extremity I82.441 and Renal insufficiency N28.9 [facility] [id number] [place] [address] 82147 -6123 Jul, Right ankle pain M25.571 and Leg edema, right R60.0 [facility] [id number] [place] [address] 11478- 7997 Jul, Gastroenteritis K52.9 [facility] [id number] [place] [address] 96885- 1310 September, Neuropathy 355.9 ; Onychomycosis 110.1 and Xerosis of skin 706.8 [place] [id number] [id number] [place] [address]- [address]858 29 Aug, 2014 [facility] [place] [facility] [address] [id number] [place] [address]- 2466 Aug, 2014 [facility] [place] [facility] [address] [id number] [place] [address]- 2546 Aug, [facility] [place] [facility] [address] [id number] [place] [address]- 5796 Jun, 2014 [facility] [place] [facility] [address] [id number] [place] [address]- 0126 Jun, 2014 [facility] [place] [facility] [address] [id number] [place] [address]- 5866 Jun, [facility] [place] [facility] [address] [id number] [place] [address]- 4516 Jun, [facility] [place] [facility] [address] [id number] [place] [address]- 7610 Mar, [facility] [place] [facility] [address] [id number] [place] [address]- 2033 Mar, [facility] [place] [facility] [address] [id number] [place] [address]- 1854 Dec, [facility] [place] [facility] [address] [id number] [place] [address]- 1156 Dec, [facility] [place] [facility] [address] [id number] [place] [address]- 0326 Nov, [facility] [place] [facility] [address] [id number] [place] [address]- 2546 Nov, [facility] [place] [facility] [address] [id number] [place] [address]- 2546 Nov, [facility] [place] [facility] [address] [id number] [place] [address]- 7166 Nov, [facility] [place] [facility] [address] [id number] [place] [address]- 6205 Nov, [facility] [place] [facility] [address] [id number] [place] [address]- 9758 Nov, [facility] [place] [facility] [address] [id number] [place] [address]- 9949 Oct, [facility] [place] [facility] [address] [id number] [place] [address]- 2462 Oct, [facility] [place] [facility] [address] [id number] [place] [address]- 9714 Oct, [facility] [place] [facility] [address] [id number] [place] [address]- 3461 Oct, [facility] [place] [facility] [address] [id number] [place] [address]- 8021 September, [facility] [place] [facility] [address] [id number] [place] [address]- 2298 September, [facility] [place] [facility] [address] [id number] [place] [address]- 9254 September, [facility] [place] [facility] [address] [id number] [place] [address]- 5819 Dec, [facility] [place] [facility] [address] [id number] [place] [address]- 3314 Dec, [facility] [place] [facility] [address] [id number] [place] [address]- 8541 Nov, [facility] [place] [facility] [address] [id number] [place] [address]- 4093 Mar, [facility] [place] [facility] [address] [id number] [place] [address]- 2689 Mar, [facility] [place] [facility] [address] [id number] [place] [address]- 8271 Mar, [facility] [place] [facility] [address] [id number] [place] [address]- 1068 Apr, [facility] [place] [facility] [address] [id number] [place] [address]- 4711 Mar, [facility] [address] [facility] [id number] [address] Nov, IMMUNIZATIONS No Known Immunizations SOCIAL HISTORY Never Assessed REASON FOR VISIT PLAN OF CARE VITAL SIGNS MEDICATIONS Medication Instructions Dosage Frequency Start Date End Date Duration Status Naprosyn 500 mg Orally Twice a day 1 tablet 12h September, 30 days Active RESULTS No Results PROCEDURES No Known procedures INSTRUCTIONS MEDICATIONS ADMINISTERED No Known Medications MEDICAL (GENERAL) HISTORY Type Description Date Medical History stress test 09/14/14 Dr Ayala EF 48% Medical History acid reflux Medical History Thrombocythemia Medical History Anemia Medical History Rodrigues's esophagus Surgical History right hip replacement Surgical History pins placed in left hip(thigh) Surgical History gastrectomy Surgical History splenectomy Hospitalization History GI Bleed, aspiration pneumonia--[facility] 01/17/16 Hospitalization History diverticulitis 03/2017
--- OUTSIDE RECORDS SUMMARY | 2017-10-18 17:39 | XMS REPORT ---
Author KALPESH Rudolph [facility] eClinicalWorks Address Unknown Phone Unavailable Care Team Providers Care Spanish Linguist Name Role Phone KALPESH IZAGUIRRE CP Unavailable Allergies No Known Allergies Problems Problem Type Condition Code Onset Dates Condition Status Problem Acute deep vein thrombosis (DVT) of tibial vein of right lower extremity I82.441 Active Problem Thrombocythemia D47.3 Active Problem GERD (gastroesophageal reflux disease) K21.9 Active Problem BPH (benign prostatic hyperplasia) N40.0 Active Problem Chronic systolic congestive heart failure I50.22 Active Problem Anemia D64.9 Active Problem Renal insufficiency N28.9 Active Medications No Known Medications Results No Known Results Summary Purpose eClinicalWorks Submission
--- OUTSIDE RECORDS SUMMARY | 2017-10-18 17:39 | XMS REPORT ---
Author Author ANDRES ONTIVEROS [facility] Address [address] [place] [address] Care Team Providers Care Tire Layer Name Role Phone ANDRES ONTIVEROS Unavailable PROBLEMS Type Condition ICD9-CM Code [id number] Code Onset Dates Condition Status SNOMED Code Problem Thrombocythemia D47.3 Active 5205073 Problem Renal insufficiency N28.9 Active 636785543 Problem Acute deep vein thrombosis (DVT) of tibial vein of right lower extremity I82.441 Active 035967441773994 Problem Chronic systolic congestive heart failure I50.22 Active 698958709 Problem BPH (benign prostatic hyperplasia) N40.0 Active 169680039 Problem Diverticulitis of large intestine without perforation or abscess without bleeding K57.32 Active 9674043 Problem 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 777771982 Problem Anemia D64.9 Active 584638001 Problem GERD (gastroesophageal reflux disease) K21.9 Active 578507590 Problem Arthritis M19.90 Active 1302684 Problem Sprain of foot, left, initial encounter S93.602A Active 69644021 ALLERGIES No Known Allergies SOCIAL HISTORY Never Assessed PLAN OF CARE Activity Details Follow Up 4 Weeks, prn Reason: VITAL SIGNS Height 68 in 2016-09-22 Weight 148 lbs 2016-09-22 Temperature 97.6 degrees Fahrenheit 2016-09-22 Heart Rate 58 bpm 2016-09-22 Respiratory Rate 18 2016-09-22 BMI 22.50 kg/m2 2016-09-22 Blood pressure systolic 110 mmHg 2016-09-22 Blood pressure diastolic 66 mmHg 2016-09-22 MEDICATIONS Medication Instructions Dosage Frequency Start Date End Date Duration Status Lisinopril 10 MG Orally Once a day 1 tablet 24h Active Allopurinol 100 mg Orally Once a day 1 tablet 24h September, Jan, 30 day(s) Active Folic Acid 1 MG Orally Once a day 1 tablet 24h Active Naprosyn 500 mg Orally 2 times a day, pc 1 September, September, 14 days Active Aspirin 81 mg 1 Tablet by Oral route 1 time per day September, Active Lasix 20 MG Orally Once a day 1 tablet 24h Active Toprol XL 25 MG Orally Once a day 1 tablet 24h Active Poly Iron PN by oral route 2 times a day 150 mg 12h Active Protonix 40 MG Orally Once a day 1 tablet 24h Active RESULTS No Results PROCEDURES Procedure Date Ordered Result Body Site [facility] VISIT ESTABLISHED PATIENT September 22, 2016 IMMUNIZATIONS No Known Immunizations MEDICAL (GENERAL) HISTORY Type Description Date Medical History stress test 09/14/14 Dr Ayala EF 48% Medical History acid reflux Medical History Thrombocythemia Medical History Anemia Medical History Rodrigues's esophagus Surgical History right hip replacement Surgical History pins placed in left hip(thigh) Surgical History gastrectomy Surgical History splenectomy Hospitalization History GI Bleed, aspiration pneumonia--[facility] 01/17/16
--- OUTSIDE RECORDS SUMMARY | 2017-10-18 17:39 | XMS REPORT ---
Author Author ANDRES ONTIVEROS [facility] eClinicalWorks Address Unknown Phone Unavailable Care Team Providers Care Nuclear Medicine Chief Technologist Name Role Phone ANDRES ONTIVEROS CP Unavailable Allergies, Adverse Reactions, Alerts Substance Reaction Event Type N.K.D.A. Info Not Available Non Drug Allergy Problems Problem Type Condition Code Onset Dates Condition Status Assessment Chronic systolic congestive heart failure I50.22 Active Problem Acute deep vein thrombosis (DVT) of tibial vein of right lower extremity I82.441 Active Problem Thrombocythemia D47.3 Active Problem GERD (gastroesophageal reflux disease) K21.9 Active Problem BPH (benign prostatic hyperplasia) N40.0 Active Problem Chronic systolic congestive heart failure I50.22 Active Problem Anemia D64.9 Active Problem Renal insufficiency N28.9 Active Medications Medication Code System Code Instructions Start Date End Date Status Dosage Aspirin [facility] [address]-96 81 mg October 17, 2013 1 Tablet by Oral route 1 time per day Protonix [facility] [address]-94 40 MG Orally Once a day 1 tablet Lasix [facility] [address]-89 20 MG Orally Once a day 1 tablet Poly Iron PN NDC 0 by oral route 2 times a day 150 mg Toprol XL [facility] [address]-17 25 MG Orally Once a day 1 tablet Lisinopril [facility] [address]-04 10 MG Orally Once a day 1 tablet Folic Acid [facility] [address]-40 1 MG Orally Once a day 1 tablet Procedures Procedure Coding System Code Date Office Visit, Est Pt., Level 2 CPT-4 85122 Mar 14, 2016 [facility] VISIT ESTABLISHED PATIENT CPT-4 G0467 Mar 14, 2016 Vital Signs Date/Time: Mar 14, 2016 Cardiac Monitoring Heart Rate 64 bpm Weight 148.4 lbs Height 68 in BMI 22.56 Index Blood Pressure Diastolic 72 mmHg Blood Pressure Systolic 142 mmHg Results No Known Results Summary Purpose eClinicalWorks Submission
--- OUTSIDE RECORDS SUMMARY | 2017-10-18 17:40 | XMS REPORT ---
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 Unknown Non Drug Allergy May, Unknown SOCIAL HISTORY No smoking Hx information available PLAN OF CARE Activity Details Follow Up prn Reason: VITAL SIGNS Height 68 in 2016-06-05 Weight 156.0 lbs 2016-06-05 Temperature 98.1 degrees Fahrenheit 2016-06-05 Heart Rate 64 bpm 2016-06-05 Respiratory Rate 18 2016-06-05 BMI 23.72 kg/m2 2016-06-05 Blood pressure systolic 130 mmHg 2016-06-05 Blood pressure diastolic 72 mmHg 2016-06-05 MEDICATIONS Medication Instructions Dosage Frequency Start Date End Date Duration Status Lasix 20 MG Orally Once a day 1 tablet 24h Active Toprol XL 25 MG Orally Once a day 1 tablet 24h Active Aspirin 81 mg 1 Tablet by Oral route 1 time per day September, Active Poly Iron PN by oral route 2 times a day 150 mg 12h Active Protonix 40 MG Orally Once a day 1 tablet 24h Active Lisinopril 10 MG Orally Once a day 1 tablet 24h Active Folic Acid 1 MG Orally Once a day 1 tablet 24h Active RESULTS Name Result Date Reference Range Xray : Foot, Left 3 views (IN HOUSE) 2016-06-05 PROCEDURES Procedure Date Ordered Related Diagnosis Body Site X-RAY EXAM OF FOOT Jun 05, 2016 [facility] VISIT ESTABLISHED PATIENT Jun 05, 2016 Office Visit, Est Pt., Level 3 Jun 05, 2016 IMMUNIZATIONS No Known Immunizations
--- OUTSIDE RECORDS SUMMARY | 2017-10-18 17:40 | XMS REPORT ---
Author Author YUNIOR CAMPBELL [facility] Address [address] [place] [address] Care Team Providers Care Board Certified Family Physician Name Role Phone YUNIOR CAMPBELL Unavailable PROBLEMS Type Condition ICD9-CM Code [id number] Code Onset Dates Condition Status SNOMED Code Problem Chronic systolic congestive heart failure I50.22 Active 055375455 Problem GERD (gastroesophageal reflux disease) K21.9 Active 500665263 Problem Acute deep vein thrombosis (DVT) of tibial vein of right lower extremity I82.441 Active 807849023807769 Problem Renal insufficiency N28.9 Active 488960291 Problem BPH (benign prostatic hyperplasia) N40.0 Active 758573384 Problem Thrombocythemia D47.3 Active 7595709 Problem Anemia D64.9 Active 258832929 ALLERGIES No Known Allergies SOCIAL HISTORY No smoking Hx information available PLAN OF CARE VITAL SIGNS MEDICATIONS Medication Instructions Dosage Frequency Start Date End Date Duration Status Aspirin 81 mg 1 Tablet by Oral route 1 time per day September, Active Toprol XL 25 MG Orally Once a day 1 tablet 24h Active Lisinopril 10 MG Orally Once a day 1 tablet 24h Active Protonix 40 MG Orally Once a day 1 tablet 24h Active Folic Acid 1 MG Orally Once a day 1 tablet 24h Active Clindamycin HCl 300 MG Orally every 6 hrs for 5 days 1 capsule Active Lasix 20 MG Orally Once a day 1 tablet 24h Active Hydroxyurea 500 MG Orally Once a day 1 tablet 24h Active Poly Iron PN by oral route 2 times a day 150 mg 12h Active RESULTS No Results PROCEDURES No Known procedures IMMUNIZATIONS No Known Immunizations
--- OUTSIDE RECORDS SUMMARY | 2017-10-18 17:40 | XMS REPORT ---
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 571234447 Problem Arthritis M19.90 Active 8800606 Problem GERD (gastroesophageal reflux disease) K21.9 Active 072649533 Problem Renal insufficiency N28.9 Active 713555949 Problem Sprain of foot, left, initial encounter S93.602A Active 53028620 Problem Anemia D64.9 Active 050519241 ALLERGIES No Known Allergies SOCIAL HISTORY Never Assessed PLAN OF CARE Activity Details Follow Up 4 Months Reason: VITAL SIGNS Height 68 in 2016-07-04 Weight 154.4 lbs 2016-07-04 Temperature 98.1 degrees Fahrenheit 2016-07-04 Heart Rate 64 bpm 2016-07-04 Respiratory Rate 18 2016-07-04 BMI 23.47 kg/m2 2016-07-04 Blood pressure systolic 132 mmHg 2016-07-04 Blood pressure diastolic 72 mmHg 2016-07-04 MEDICATIONS Medication Instructions Dosage Frequency Start Date End Date Duration Status Lasix 20 MG Orally Once a day 1 tablet 24h Active Toprol XL 25 MG Orally Once a day 1 tablet 24h Active Protonix 40 MG Orally Once a day 1 tablet 24h Active Aspirin 81 mg 1 Tablet by Oral route 1 time per day September, Active Lisinopril 10 MG Orally Once a day 1 tablet 24h Active Folic Acid 1 MG Orally Once a day 1 tablet 24h Active Poly Iron PN by oral route 2 times a day 150 mg 12h Active RESULTS No Results PROCEDURES Procedure Date Ordered Result Body [facility] ESTABL[facility] PATIENT Jul 04, 2016 IMMUNIZATIONS No Known Immunizations MEDICAL (GENERAL) HISTORY Type Description Date Medical History stress test 09/14/14 Dr Ayala EF 48% Medical History acid reflux Medical History Thrombocythemia Medical History Anemia Medical History Rodrigues's esophagus Surgical History right hip replacement Surgical History pins placed in left hip(thigh) Surgical History gastrectomy Surgical History splenectomy Hospitalization History GI Bleed, aspiration pneumonia--[facility] 01/17/16
--- OUTSIDE RECORDS SUMMARY | 2017-10-18 17:41 | XMS REPORT ---
Author Author ANDRES ONTIVEROS Organization [facility] [place] Address [address] [place] [address] Care Team Providers Care Product Director Name Role Phone ANDRES ONTIVEROS Unavailable PROBLEMS Type Condition ICD9-CM Code [id number] Code Onset Dates Condition Status SNOMED Code Problem Thrombocythemia D47.3 Active 0506358 Problem Renal insufficiency N28.9 Active 312598315 Problem Acute deep vein thrombosis (DVT) of tibial vein of right lower extremity I82.441 Active 979737903149899 Problem Chronic systolic congestive heart failure I50.22 Active 293904175 Problem BPH (benign prostatic hyperplasia) N40.0 Active 585881429 Problem Diverticulitis of large intestine without perforation or abscess without bleeding K57.32 Active 6361390 Problem 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 045700907 Problem Anemia D64.9 Active 926700540 Problem GERD (gastroesophageal reflux disease) K21.9 Active 559542559 Problem Arthritis M19.90 Active 0517080 Problem Sprain of foot, left, initial encounter S93.602A Active 46653783 ALLERGIES No Known Allergies ENCOUNTERS Encounter Location Date Diagnosis [place] [id number] [place] [address]000- 1765 Aug, Medicare annual wellness visit, initial Z00.00 [facility] [place] [address] [place] [address] 47471- 4322 Jul, [facility] [place] [address] [place] [id number] [place] [address] 51985- 8296 Jul, [facility] [place] [address] [place] [address] 13758- 8564 Jun, [facility] [place] [address] [place] [address] 43742- 6222 Jun, Chronic systolic congestive heart failure I50.22 and BPH ( benign prostatic hyperplasia) N40.0 [place] [address] [place] [id number] [place] [address] 80583- 8587 Apr, Weight loss, abnormal R63.4 [place] [address] [place] [id number] [place] [address] 21692- 8302 Feb, Diverticulitis of large intestine without perforation or abscess without bleeding K57.32 [place] [address] 53567- 7583 Jan, [place] [address] 81048- 0414 Oct, Leg edema, right R60.0 [place] [address] 84897- 7784 Oct, 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 [place] [address] [address] [place] [id number] [place] [address] 99625 -4528 Aug, Osteopenia of left foot M85.872 [place] [address] [place] [id number] [place] [address] 81358- 2743 14 Jun, 2016 Chronic systolic congestive heart failure I50.[address] [facility] [address] [address] -[address] May, Left foot pain M79.672 and Sprain of foot, left, initial encounter S93.602A [place] [address] 22245- 2232 Feb, Chronic systolic congestive heart failure I50.22 [facility] [place] [address] [place] [id number] [place] [address] 84443- 4973 Jan, [facility] [place] [address] [place] [address] [id number] [place] [address] 40268- 9570 Dec, [facility] [place] [address] [place] [id number] [place] [address] 88273- 9084 September, Chronic systolic congestive heart failure I50.22 and Acute deep vein thrombosis (DVT) of tibial vein of right lower extremity I82.441 [facility] [place] [address] [place] [id number] [place] [address] 42968- 1565 Aug, Acute deep vein thrombosis (DVT) of tibial vein of right lower extremity I82.441 and Chronic systolic congestive heart failure I50.22 [facility] [place] [address] [place] [id number] [place] [address] 61215- 4931 Jul, DVT (deep venous thrombosis) I82.409 [place] [address] [place] [id number] [place] [address] 82410- 6558 Jul, Acute deep vein thrombosis (DVT) of tibial vein of right lower extremity I82.441 and Thrombocythemia D47.3 [facility] [place] [address] [place] [id number] [place] [address] 14311- 5195 Jul, Acute deep vein thrombosis (DVT) of tibial vein of right lower extremity I82.441 and Renal insufficiency N28.9 [facility] [address] [place] [id number] [place] [address] 90792 -2243 Jul, Right ankle pain M25.571 and Leg edema, right R60.0 [facility] [place] [address] [address] [id number] [place] [address] 07777- 6417 Jul, Gastroenteritis K52.9 [facility] [place] [address] [address] [id number] [place] [address] 23593- 3495 September, Neuropathy 355.9 ; Onychomycosis 110.1 and Xerosis of skin 706.8 [facility] [place] [facility] [address] [id number] [place] [address]- 9093 Aug, [facility] [place] [facility] [address] [id number] [place] [address]- 2958 Aug, [facility] [place] [facility] [address] [id number] [place] [address]- 3941 Aug, [facility] [place] [facility] [address] [id number] [place] [address]- 3212 Jun, [facility] [place] [facility] [address] [id number] [place] [address]- 9333 Jun, 2014 [facility] [place] [facility] [address] [id number] [place] [address]- 3458 Jun, [facility] [place] [facility] [address] [id number] [place] [address]- 5202 Jun, [facility] [place] [facility] [address] [id number] [place] [address]- 6746 Mar, [facility] [place] [facility] [address] [id number] [place] [address]- 4085 Mar, [facility] [place] [facility] [address] [id number] [place] [address]- 5763 Dec, [facility] [place] [facility] [address] [id number] [place] [address]- 6934 Dec, [facility] [place] [facility] [address] [id number] [place] [address]- 3719 Nov, [facility] [place] [facility] [address] [id number] [place] [address]- 0908 Nov, [facility] [place] [facility] [address] [id number] [place] [address]- 6462 Nov, [facility] [place] [facility] [address] [id number] [place] 8267 Nov, [facility] [place] [facility] [address] [id number] [place] [address]- 0803 Nov, [facility] [place] [facility] [address] [id number] [place] [address]- 2407 Nov, [facility] [place] [facility] [address] [id number] [place] [address]- 9292 Oct, [facility] [place] [facility] [address] [id number] [place] [address]- 4495 Oct, [facility] [place] [facility] [address] [id number] [place] [address]- 9373 Oct, [facility] [place] [facility] [address] [id number] [place] [address]- 0565 Oct, [facility] [place] [facility] [address] [id number] [place] [address]- 2349 September, [facility] [place] [facility] [address] [id number] [place] [address]- 6338 September, [facility] [place] [facility] [address] [id number] [place] [address]- 3577 September, [facility] [place] [facility] [address] [id number] [place] [address]- 3357 Dec, [facility] [place] [facility] [address] [id number] [place] [address]- 4920 Dec, [facility] [place] [facility] [address] [id number] [place] [address]- 5429 Nov, [facility] [place] [facility] [address] [id number] [place] [address]- 8068 Mar, [facility] [place] [facility] [address] [id number] [place] [address]- 8131 Mar, [facility] [place] [facility] [address] [id number] [place] [address]- 2062 Mar, [facility] [place] [facility] [address] [id number] [place] [address]- 7073 Apr, [facility] [place] [facility] [address] [id number] [place] [address]- 6730 Mar, [facility] [place] [address] [id number] [address]- 9207 Nov, IMMUNIZATIONS No Known Immunizations SOCIAL HISTORY Never Assessed REASON FOR VISIT ankle pain f/u, left, reports pain with swelling. Swelling up to just below knee 2-3+. CBrumback RN PLAN OF CARE Activity Details Follow Up prn Reason: VITAL SIGNS Height 68 in 2016-10-20 Weight 146.6 lbs 2016-10-20 Temperature 97.9 degrees Fahrenheit 2016-10-20 Heart Rate 70 bpm 2016-10-20 Respiratory Rate 18 2016-10-20 BMI 22.29 kg/m2 2016-10-20 Blood pressure systolic 110 mmHg 2016-10-20 Blood pressure diastolic 62 mmHg 2016-10-20 MEDICATIONS Medication Instructions Dosage Frequency Start Date End Date Duration Status Poly Iron PN by oral route 2 times a day 150 mg 12h Active Toprol XL 25 MG Orally Once a day 1 tablet 24h Active Lasix 20 MG Orally Once a day 1 tablet 24h Active Allopurinol 100 mg Orally Once a day 1 tablet 24h September, 2 Jan, 2017 30 day(s) Active Aspirin 81 mg 1 Tablet by Oral route 1 time per day September, Active Folic Acid 1 MG Orally Once a day 1 tablet 24h Active Lisinopril 10 MG Orally Once a day 1 tablet 24h Active Protonix 40 MG Orally Once a day 1 tablet 24h Active RESULTS Name Result Date Reference Range URIC ACID, SERUM 2016-10-20 Uric Acid, Serum 7.7 3.7-8.6 BMP 2016-10-20 Glucose, Serum 68 65-99 BUN 29 8-27 Creatinine, Serum 1.21 0.76-1.27 eGFR If NonAfricn Am 59 >59 eGFR If Africn Am 69 >59 BUN/Creatinine Ratio 24 10-24 Sodium, Serum 142 134-144 Potassium, Serum 5.2 3.5-5.2 Chloride, Serum 106 96-106 Carbon Dioxide, Total 20 18-29 Calcium, Serum 9.2 8.6-10.2 PROCEDURES Procedure Date Ordered Result Body Site LAB NOT BILLED BY [facility] October 20, 2016 [facility] VISIT ESTABLISHED PATIENT October 20, 2016 VENLUCIA, ROUTINE* October 20, 2016 INSTRUCTIONS MEDICATIONS ADMINISTERED No Known Medications MEDICAL (GENERAL) HISTORY Type Description Date Medical History stress test 09/14/14 Dr Ayala EF 48% Medical History acid reflux Medical History Thrombocythemia Medical History Anemia Medical History Rodrigues's esophagus Surgical History right hip replacement Surgical History pins placed in left hip(thigh) Surgical History gastrectomy Surgical History splenectomy Hospitalization History GI Bleed, aspiration pneumonia--[facility] 01/17/16 Hospitalization History diverticulitis 03/2017
--- OUTSIDE RECORDS SUMMARY | 2017-10-18 17:42 | XMS REPORT ---
Author ANDRES Rutherford [facility] [place] eClinicalWorks Address Unknown Phone Unavailable Care Team Providers Care Command And Control Specialist Name Role Phone ANDRES ONTIVEROS Unavailable Allergies, Adverse Reactions, Alerts Substance Reaction Event Type N.K.D.A. Info Not Available Non Drug Allergy Problems Problem Type Condition Code Onset Dates Condition Status Assessment Acute deep vein thrombosis (DVT) of tibial vein of right lower extremity I82.441 Active Assessment Chronic systolic congestive heart failure I50.22 [...] Instructions Start Date End Date Status Dosage Lisinopril [facility] [address]-00 10 MG Orally Once a day 1 tablet Hydroxyurea [facility] [address]-51 500 MG Orally Once a day 1 tablet Folic Acid [facility] [address]-03 1 MG Orally Once a day 1 tablet Toprol XL [facility] [address]-07 25 MG Orally Once a day 1 tablet Protonix [facility] [address]-04 40 MG Orally Once a day 1 tablet Poly Iron PN ND 0 by oral route 2 times a day 150 mg Cyanocobalamin [facility] [address]-75 1000 MCG/ML Injection once monthly 1 Potassium Chloride Neha ER [facility] [address]-01 10 MEQ Orally Once a day 1 tablet Lasix [facility] [address]-66 20 MG Orally Once a day 1 tablet Eliquis [facility] [address]-68 2.5 MG Orally 2 times a day 1 tablet Procedures Procedure Coding System Code Date Office Visit, Est Pt., Level 3 CPT-4 86752 August 23, 2015 [facility] VISIT ESTABLISHED PATIENT CPT-4 G0467 August 23, 2015 Vital Signs Date/Time: August 23, 2015 Temperature 98.1 F Weight 149.2 lbs Height 68 in BMI 22.68 Index Blood Pressure Diastolic 82 mmHg Blood Pressure Systolic 142 mmHg Cardiac Monitoring Heart Rate 72 bpm Results No Known Results Summary Purpose eClinicalWorks Submission
== END 2017-10-18 14:54 | disposition home or self-care (01) ==
LOC: EDUNIT# 13:45 → ER 13:47
DX: T63.301A Toxic effect of unspecified spider venom, accidental (unintentional), initial encounter (principal); I25.10 Atherosclerotic heart disease of native coronary artery without angina pectoris; I11.0 Hypertensive heart disease with heart failure; I50.9 Heart failure, unspecified; E78.00 Pure hypercholesterolemia, unspecified; I73.9 Peripheral vascular disease, unspecified; K21.9 Gastro-esophageal reflux disease without esophagitis; Z85.828 Personal history of other malignant neoplasm of skin; Z90.89 Acquired absence of other organs; Z79.82 Long term (current) use of aspirin; Z86.718 Personal history of other venous thrombosis and embolism; Z87.19 Personal history of other diseases of the digestive system; Z79.01 Long term (current) use of anticoagulants
CPT/HCPCS: 99283

== ENCOUNTER 2017-10-22 13:40 | Outpatient (RCR) | payer MEDICARE, MEDICAID ==
[~2017-10-22 13:40] MED LIST changes: +DOXY100T2 PO
[2017-10-22 14:02] LABS: BASOPHILS % (AUTO) 0 % (0-10); EOSINOPHILS % (AUTO) 0 % (0-10); HEMATOCRIT 25 % (40-54); LYMPHOCYTES # (AUTO) 0.7 X 10^3 (1.0-4.0); LYMPHOCYTES % (AUTO) 5 % (12-44); MEAN CORPUSCULAR HEMOGLOBIN 37 PG (25-34); MEAN CORPUSCULAR HGB CONC 36 G/DL (32-36); MEAN CORPUSCULAR VOLUME 104 FL (80-99); MEAN PLATELET VOLUME 13.1 FL (7.4-10.4); MONOCYTES # (AUTO) 0.5 X 10^3 (0.0-1.0); MONOCYTES % (AUTO) 4 % (0-12); NEUTROPHILS # (AUTO) 12.1 X 10^3 (1.8-7.8); NEUTROPHILS % (AUTO) 91 % (42-75); PLATELET COUNT 202 10^3/uL (130-400); RED BLOOD COUNT 2.41 10^6/uL (4.35-5.85); WHITE BLOOD COUNT 13.3 10^3/uL (4.3-11.0)
[2017-10-22 14:20] LABS: ALBUMIN 1.9 GM/DL (3.2-4.5); BILIRUBIN,TOTAL 0.7 MG/DL (0.1-1.0); CREATININE SERUM 1.71 MG/DL (0.60-1.30); TOTAL PROTEIN 5.2 GM/DL (6.4-8.2)
[2017-10-22 14:23] LABS: CALCIUM 5.2 MG/DL (8.5-10.1); POTASSIUM 1.6 MMOL/L (3.6-5.0)
[2017-10-22] MEDS ORDERED: CYANOCOBALAMIN INJ 1000 MCG/ML (CANCER CENTER) ONE (14:31)
[2017-10-22 14:47] LABS: SMEAR SCAN COMMENT YES
[2017-10-30] MEDS ORDERED: POTA20LI3 PO (15:08)
[2017-11-16] MEDS ORDERED: QUET25TA73 PO (11:04)
[2017-11-16] MEDS ORDERED: HYDR-34 PO (11:04)
[2017-11-16] MEDS ORDERED: IRON150C3 PO (11:04)
[2017-11-16] MEDS ORDERED: ACID1TAB PO (11:04)
[2017-11-16] MEDS ORDERED: CHOL4PAC3 PO (11:04)
[2017-11-16] MEDS ORDERED: METR500T21 PO (11:04)
[2017-11-16] MEDS ORDERED: ZINC28PA TOP (11:04)
[2017-11-16] MEDS ORDERED: ENOX40DI8 SC (11:04)
[2017-12-03] MEDS ORDERED: DONE5TAB30 PO (08:45)
[2017-12-03] MEDS ORDERED: QUET25TA PO (08:45)
[2017-12-03] MEDS ORDERED: ENOX40DI13 SQ (08:45)
== END 2017-12-03 | disposition home or self-care (01) ==
LOC: ONC 13:40
PROVIDERS: ATTEND Internal Medicine Hematology & Oncology
DX: D69.6 Thrombocytopenia, unspecified (principal); D51.3 Other dietary vitamin B12 deficiency anemia; K58.9 Irritable bowel syndrome, unspecified; K21.9 Gastro-esophageal reflux disease without esophagitis; I25.10 Atherosclerotic heart disease of native coronary artery without angina pectoris; I11.0 Hypertensive heart disease with heart failure; I50.9 Heart failure, unspecified; E78.5 Hyperlipidemia, unspecified; Z79.899 Other long term (current) drug therapy
CPT/HCPCS: 36415; 80053; 85025; 96372

== ENCOUNTER 2017-10-30 06:37 | Inpatient (IN) | payer MEDICARE, MEDICAID ==
[~2017-10-30] VITALS: Ht 167.6 cm; Wt 72.3 kg
[2017-10-30] VITALS (22 sets, daily range): BP systolic 83–112; BP diastolic 60–86
--- OUTSIDE RECORDS SUMMARY | 2017-10-30 06:54 | XMS REPORT ---
Author Author ANDRES ONTIVEROS Organization [facility] Address [address] [place] [address] Care Team Providers Care Real Estate Broker Associate Name Role Phone ANDRES ONTIVEROS Unavailable PROBLEMS Type Condition ICD9-CM Code QPO91-MW Code Onset Dates Condition Status SNOMED Code Problem Acute deep vein thrombosis (DVT) of tibial vein of right lower extremity I82.441 Active 311437951852559 Problem GERD (gastroesophageal reflux disease) K21.9 Active 819710964 Problem Renal insufficiency N28.9 Active 509141034 Problem BPH (benign prostatic hyperplasia) N40.0 Active 375995209 Problem Chronic systolic congestive heart failure I50.22 Active 493721720 Problem Thrombocythemia D47.3 Active 9656252 Problem Peripheral vascular disease I73.9 Active 630546490 Problem Diverticulitis of large intestine without perforation or abscess without bleeding K57.32 Active 4667821 Problem Sprain of foot, left, initial encounter S93.602A Active 57712822 Problem Anemia D64.9 Active 564529321 Problem 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 481425883 Problem Arthritis M19.90 Active 0067628 ALLERGIES No Known Allergies ENCOUNTERS Encounter Location Date Diagnosis [facility] [address] [address]- [address] Oct, Medicare annual wellness visit, initial Z00.00 ; Peripheral vascular disease I73.9 ; Chronic systolic congestive heart failure I50.22 ; GERD (gastroesophageal reflux disease) K21.9 ; Thrombocythemia D47.3 ; Renal insufficiency N28.9 ; Arthritis M19.90 and BPH (benign prostatic hyperplasia) N40.0 [facility] [address] [place] [id number] [address]- 1624 Oct, [facility] [address] [place] [address] 01785- 8922 Aug, [place] [address] [place] [id number] [place] [address] 53283- 8129 Jul, Injury of chest wall, initial encounter S29.9XXA ; Hypokalemia E87.6 ; Thrombocythemia D47.3 ; Peripheral vascular disease I73.9 and Chronic systolic congestive heart failure I50.22 [place] [address] [address]- [address]12 Jul, [place] [address] 15165- 3642 Jul, [place] [address] 60262- 4264 Jun, [place] [address] 51993- 8199 Jun, Chronic systolic congestive heart failure I50.22 and BPH ( benign prostatic hyperplasia) N40.0 [place] [address] 0[address]40- 2021 Apr, Weight loss, abnormal R63.4 [place] [address] 37265- 4686 02 Feb, 2017 Diverticulitis of large intestine without perforation or abscess without bleeding K57.32 [place] [address] 84734- 7271 Jan, [place] [address] 67385- 6841 Oct, Leg edema, right R60.[address] [address]- 9124 Oct, 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 [address] [place] [address] 80175 -9916 Aug, Osteopenia of left foot M85.872 [facility] [address] [place] [id number] [place] [address] 70876- 8636 Jun, Chronic systolic congestive heart failure I50.22 [facility] [address] [address] May, Left foot pain M79.672 and Sprain of foot, left, initial encounter S93.602A [place] [address] [address]- 1656 Feb, Chronic systolic congestive heart failure I50.22 [place] [address] [address]- 2022 Jan, [facility] [address] [place] [address] 71138- 0069 Dec, [facility] [address] [address]- 6171 September, Chronic systolic congestive heart failure I50.22 and Acute deep vein thrombosis (DVT) of tibial vein of right lower extremity I82.441 [place] [address] [address]- 6780 Aug, Acute deep vein thrombosis (DVT) of tibial vein of right lower extremity I82.441 and Chronic systolic congestive heart failure I50.22 [place] [address] [address]- 2021 Jul, DVT (deep venous thrombosis) I82.409 [facility] [address] [address]- 7295 Jul, Acute deep vein thrombosis (DVT) of tibial vein of right lower extremity I82.441 and Thrombocythemia D47.3 [facility] [address] [place] [id number] [place] [address] 14385- 5357 Jul, Acute deep vein thrombosis (DVT) of tibial vein of right lower extremity I82.441 and Renal insufficiency N28.9 [facility] [address] [address] Jul, Right ankle pain M25.571 and Leg edema, right R60.0 [facility] [address] [place] [id number] [place] [address] 94725- 0078 Jul, Gastroenteritis K52.9 [facility] [address] [place] [id number] [place] [address] 10861- 0259 September, Neuropathy 355.9 ; Onychomycosis 110.1 and Xerosis of skin 706.8 [facility] [address] [place] [id number] [place] [address] 23744- 9759 Aug, [facility] [id number] [place] [address] 83056- 9427 Aug, [facility] [address] [id number] [place] [address] 61819- 7784 Aug, [facility] [address] [place] [id number] [address]- 0615 Jun, [facility] [address] [id number] [place] [address] 54497- 6940 Jun, [facility] [address] [address] 2544 Jun, [facility] [address] [id number] [place] [address] 66014- 7056 Jun, [facility] [address] [address]- 7[address] Mar, [facility] [address] [id number] [place] [address] 37404- 7692 Mar, [facility] [place] [facility] [address] [id number] [place] [address]- 0345 Dec, [facility] [place] [facility] [address] [id number] [place] [address]- 6403 Dec, [facility] [place] [facility] [address] [id number] [place] [address]- 0689 Nov, [facility] [place] [facility] [address] [id number] [place] [address]- 5284 Nov, [facility] [place] [facility] [address] [id number] [place] [address]- 9149 Nov, [facility] [place] [facility] [address] [id number] [place] [address]- 7648 Nov, [facility] [place] [facility] [address] [id number] [place] [address]- 0907 Nov, [facility] [place] [facility] [address] [id number] [place] [address]- 0967 Nov, [facility] [place] [facility] [address] [id number] [place] [address]- 1008 Oct, [facility] [place] [facility] [address] [id number] [place] [address]- 3551 Oct, [facility] [place] [facility] [address] [id number] [place] [address]- 8176 Oct, [facility] [place] [facility] [address] [id number] [place] [address]- 9905 Oct, [facility] [place] [facility] [address] [id number] [place] [address]- 4967 September, [facility] [place] [facility] [address] [id number] [place] [address]- 6085 September, [facility] [place] [facility] [address] [id number] [place] [address]- 2721 September, [facility] [place] [facility] [address] [place] [id number] [address]- 0152 Dec, [facility] [address] [address]- 9584 Dec, [facility] [address] [address]- 7426 Nov, [facility] [address] [address]- 6432 Mar, [facility] [address] [address]- 0170 Mar, [facility] [address] [address]- 7260 Mar, [facility] [address] [address]- 0187 Apr, [facility] [address] [address]- 3469 Mar, [facility] [id number] [address]- 5191 Nov, IMMUNIZATIONS No Known Immunizations SOCIAL HISTORY Never Assessed REASON FOR VISIT Hospital f/u from at for Diverticulitus-Trice REBOLLAR PLAN OF CARE Activity Details Follow Up prn Reason: VITAL SIGNS Height 68 in 2017-04-30 Weight 121.4 lbs 2017-04-30 Temperature 98.0 degrees Fahrenheit 2017-04-30 Heart Rate 78 bpm 2017-04-30 Respiratory Rate 16 2017-04-30 BMI 18.46 kg/m2 2017-04-30 Blood pressure systolic 98 mmHg 2017-04-30 Blood pressure diastolic 62 mmHg 2017-04-30 MEDICATIONS Medication Instructions Dosage Frequency Start Date End Date Duration Status Klor-Con 10 10 MEQ Orally Once a day 1 tablet with food 24h Unknown Anagrelide HCl 0.5 MG Orally Twice a day 1 capsule 12h Unknown Hydroxyurea 500 MG Orally Once a day 1 capsule 24h Active Protonix 40 MG Orally Once a day 1 tablet 24h Active Stool Softener Active Lisinopril 10 MG Orally Once a day 1 tablet 24h Active Aspirin 81 mg 1 Tablet by Oral route 1 time per day September, Active Lasix 20 MG Orally Once a day 1 tablet 24h Unknown Poly Iron PN by oral route 2 times a day 150 mg 12h Active Folic Acid 1 MG Orally Once a day 1 tablet 24h Active Naprosyn 500 mg Orally Twice a day 1 tablet 12h September, 30 days Not-Taking Toprol XL 25 MG Orally Once a day 1 tablet 24h Unknown RESULTS No Results PROCEDURES Procedure Date Ordered Result Body Site [facility] VISIT ESTABLISHED PATIENT Apr 30, 2017 INSTRUCTIONS MEDICATIONS ADMINISTERED No Known Medications MEDICAL (GENERAL) HISTORY Type Description Date Medical History stress test 09/14/14 Dr Ayala EF 48% Medical History acid reflux Medical History Thrombocythemia Medical History Anemia Medical History Rodrigues's esophagus Surgical History right hip replacement Surgical History pins placed in left hip(thigh) Surgical History gastrectomy Surgical History splenectomy Hospitalization History GI Bleed, aspiration pneumonia--[facility] 01/17/16 Hospitalization History diverticulitis 03/2017 Hospitalization History low potassium 06/2017
--- NOTE | 2017-10-30 07:07 | ED General ---
General Chief Complaint: Trauma-Non Activation Stated Complaint: FALL Nursing Triage Note: patient brought in by ems after he fell in bathroom. patietn was found to be altered mentally and have a distented abdomen Nursing Sepsis Screen: No Definite Risk Source of Information: Patient, Family, Old Records Exam Limitations: No Limitations History of Present Illness Date Seen by Provider: Oct 30, 2017 Time Seen by Provider: 06:38 Initial Comments This 72-year-old gentleman presents to the emergency room via EMS after having difficulty ambulating in the home. EMS was under the impression that the patient had a fall but he denies falling. He states he would have fallen if his family hadn't helped support him. He is alert to person, place and age. He is disoriented to month. He is alert but appears weak and somewhat lethargic. He was hypotensive for EMS with a blood pressure of 76/52. Mucous membranes are dry. Blood pressure responded well to IV fluids. Blood pressure was 92/55 after 300 mL of normal saline. Patient has a distended abdomen and reported nausea area and EMS gave Zofran 4 mg IV. Patient thinks he may have been vomiting at home recently. Patient has been weak lately and has been requiring full assist assistance for ambulation from family. He has had multiple admissions within the last year for various problems including bowel obstruction from a colonic stricture and hypokalemia. [facility]. Documentation reviewed noted that patient has poor hygiene and inability to care for himself. However, he refused placement in a nursing or assisted care facility. It was noted that family also is unable to care for his needs. Patient arrives disheveled and infested with bedbugs and other bugs. Patient was seen the end of September in the ER for a suspected spider bite on the posterior left shoulder. Allergies and Home Medications Allergies Coded Allergies: No Known Drug Allergies (Verified , 06/14/17) Home Medications Apixaban 5 Mg Tablet, 5 MG PO BID, (Reported) Aspirin 81 Mg Tablet.dr, 81 MG PO DAILY, (Reported) Docusate Sodium 100 Mg Capsule, 100 MG PO DAILY PRN for CONSTIPATION-1ST LINE, ( Reported) Doxycycline Hyclate 100 Mg Tablet, 100 MG PO BID Prescribed by: JANELLE CONTRERAS on 10/18/17 8281 Folic Acid 1 Mg Tablet, 1 MG PO DAILY, (Reported) LAST FILLED #30 05-11-17 Hydroxyurea 500 Mg Capsule, 500 MG PO BID, (Reported) LAST FILLED #90 04-25-17 Iron Polysaccharide Complex 150 Mg Capsule, 150 MG PO BID, (Reported) Metoprolol Succinate 25 Mg Tab.er.24h, 25 MG PO DAILY, (Reported) Pantoprazole Sodium 40 Mg Tablet.dr, 40 MG PO DAILY, (Reported) Potassium Chloride 20 Meq Tablet.er, 20 MEQ PO BID Prescribed by: EVELYN KONG on 06/24/17 1529 Sodium Bicarbonate 650 Mg Tablet, 650 MG PO QIDACHS Prescribed by: EVELYN KONG on 06/24/17 1529 Patient Home Medication List Home Medication List Reviewed: Yes Review of Systems Constitutional: see HPI EENTM: see HPI Respiratory: no symptoms reported Cardiovascular: no symptoms reported Gastrointestinal: see HPI Genitourinary: no symptoms reported Musculoskeletal: see HPI Skin: see HPI Psychiatric/Neurological: No Symptoms Reported Hematologic/Lymphatic: No Symptoms Reported Past Zptmmpe-Pqhugx-Oowpov Hx Patient Social History Alcohol Use: Denies Use Recreational Drug Use: No 2nd Hand Smoke Exposure: No Recent Foreign Travel: No Contact w/Someone Who Travel: No Recent Infectious Disease Expo: No Recent Hopitalizations: No Physical Abuse: No Sexual Abuse: No Immunizations Up To Date Tetanus Booster (TDap): Unknown PED Vaccines UTD: No Seasonal Allergies Seasonal Allergies: No Past Medical History Surgeries: Yes Abdominal, Appendectomy, Cardiac, Joint Replacement, Orthopedic, Rectal Respiratory: Yes (ASPIRATION PNEUMONIA/SEPSIS 12/2015) Currently Using CPAP: No Currently Using BIPAP: No Cardiac: Yes (CAD, CARDIAC CATHS-NO INTERVENTION; CHF; PVD RIGHT LEG) Chronic Edema/Swelling, Coronary Artery Disease, Deep Vein Thrombosis, High Cholesterol, Hypertension, Peripheral Vascular Neurological: Yes Reproductive Disorders: No Sexually Transmitted Disease: No HIV/AIDS: No Genitourinary: Yes (RENAL CYSTS; INTRERMITTENT RENAL INSUFFICIENCY) Benign Prostatic Hyperpl Gastrointestinal: Yes (DIVERTICULITIS 01/2017; CHRONIC BILIRUBIN ELEVATION, colonic stricture with obstruction) Gastroesophageal Reflux, Rodrigues's Esophagus, Gastrointestinal Bleed, Diverticulosis, Esophagitis, Hiatal Hernia, Ulcer Musculoskeletal: Yes Arthritis Endocrine: No HEENT: Yes (POOR DENTITION) Loss of Vision: Denies Hearing Impairment: Denies Cancer: Yes (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) Skin Did You Recieve Any Treatments: Yes What Type of Treatment Did You: Surgical Intervention Psychosocial: No Nursing Suicide Risk Score: 0 Integumentary: Yes (SKIN CANCER) Blood Disorders: Yes (thrombocythemia) Adverse Reaction/Blood Tranf: No Family Medical History No Pertinent Family Hx Physical Exam-Suspected Sepsis Physical Exam Vital Signs Vital Signs - First Documented 10/30/17 10/30/17 10/30/17 06:41 06:53 07:25 Temp 98.2 Pulse 67 Resp 16 B/P (MAP) 82/57 (65) Pulse Ox 92 O2 Delivery Nasal Cannula O2 Flow Rate 2.00 Capillary Refill : Less Than 3 Seconds Blood Pressure Mean: 65 General Appearance: No Apparent Distress, WD/WN, Cachetic, Obese (disheveled and infested with bedbugs) HEENT: PERRL/EOMI, Normal ENT Inspection, Other (mucous membranes dry) Neck: Normal Inspection, Supple Respiratory: Lungs Clear, Normal Breath Sounds, No Accessory Muscle Use, No Respiratory Distress Cardiovascular: Regular Rate, Rhythm, Diastolic Murmur, Other (diffuse pitting edema of the hands and lower extremities bilaterally) Gastrointestinal: Non Tender, Soft, Abnormal Bowel Sounds (tympanic bowel sounds), Distended Extremity: Normal Capillary Refill, Pedal Edema Neurologic/Psychiatric: Alert, Oriented x3, No Motor/Sensory Deficits, Normal Mood/Affect, customer assistant II-XII Norm as Tested Skin: normal color, warm/dry Focused Exam Lactate Level 10/30/17 06:50: Lactic Acid Level 2.44*H Lactic Acid Level Laboratory Tests Test 10/30/17 06:50 Lactic Acid Level 2.44 MMOL/L (0.50-2.00) *H Progress/Results/Core Measures Suspected Sepsis Recent Fever Within 48 Hours: No Infection Criteria Present: None New/Unexplained Altered Menta: No Sepsis Screen: No Definite Risk SIRS Temperature:98.2 Pulse: 67 Respiratory Rate: 16 Laboratory Tests 10/30/17 06:50: White Blood Count 6.2 Blood Pressure 82 /57 Mean: 65 10/30/17 06:50: Lactic Acid Level 2.44*H Laboratory Tests 10/30/17 06:50: Creatinine 2.54H, INR Comment 1.3, Platelet Count 101L, Total Bilirubin 0.8 Results/Orders Lab Results Laboratory Tests Test 10/30/17 06:50 10/30/17 08:05 Range/Units White Blood Count 6.2 4.3-11.0 10^3/uL Red Blood Count 1.69 L 4.35-5.85 10^6/uL Hemoglobin 6.4 *L 13.3-17.7 G/DL Hematocrit 18 *L 40-54 % Mean Corpuscular Volume 104 H 80-99 FL Mean Corpuscular Hemoglobin 38 H 25-34 PG Mean Corpuscular Hemoglobin Concent 36 32-36 G/DL Red Cell Distribution Width 18.0 H 10.0-14.5 % Platelet Count 101 L 130-400 10^3/uL Mean Platelet Volume 7.4-10.4 FL Neutrophils (%) (Auto) 84 H 42-75 % Lymphocytes (%) (Auto) 8 L 12-44 % Monocytes (%) (Auto) 8 0-12 % Eosinophils (%) (Auto) 0 0-10 % Basophils (%) (Auto) 0 0-10 % Neutrophils # (Auto) 5.2 1.8-7.8 X 10^3 Lymphocytes # (Auto) 0.5 L 1.0-4.0 X 10^3 Monocytes # (Auto) 0.5 0.0-1.0 X 10^3 Eosinophils # (Auto) 0.0 0.0-0.3 10^3/uL Basophils # (Auto) 0.0 0.0-0.1 10^3/uL Neutrophils % (Manual) 88 % Lymphocytes % (Manual) 6 % Monocytes % (Manual) 4 % Eosinophils % (Manual) 0 % Basophils % (Manual) 0 % Band Neutrophils 2 % Poikilocytosis SLIGHT Anisocytosis SLIGHT Macrocytosis SLIGHT Rob-Gramling Bodies SLIGHT Prothrombin Time 16.3 H 12.2-14.7 SEC INR Comment 1.3 0.8-1.4 Activated Partial Thromboplast Time 28 24-35 SEC Sodium Level 147 H 135-145 MMOL/L Potassium Level 1.5 *L 3.6-5.0 MMOL/L Chloride Level 106 98-107 MMOL/L Carbon Dioxide Level 25 21-32 MMOL/L Anion Gap 16 H 5-14 MMOL/L Blood Urea Nitrogen 60 H 7-18 MG/DL Creatinine 2.54 H 0.60-1.30 MG/DL Estimat Glomerular Filtration Rate 25 BUN/Creatinine Ratio 24 Glucose Level 109 H 70-105 MG/DL Lactic Acid Level 2.44 *H 0.50-2.00 MMOL/L Calcium Level 4.4 *L 8.5-10.1 MG/DL Magnesium Level < 0.7 *L 1.8-2.4 MG/DL Total Bilirubin 0.8 0.1-1.0 MG/DL Aspartate Amino Transf (AST/SGOT) 51 H 5-34 U/L Alanine Aminotransferase (ALT/SGPT) 39 0-55 U/L Alkaline Phosphatase 89 40-136 U/L Ammonia 21 11-32 UMOL/L C-Reactive Protein High Sensitivity 2.22 H 0.00-0.50 MG/DL B-Type Natriuretic Peptide 904.5 H <100.0 PG/ML Total Protein 4.6 L 6.4-8.2 GM/DL Albumin 1.8 L 3.2-4.5 GM/DL My Orders Orders - KYLIE MOREJON MD Cbc With Automated Diff (10/30/17 06:47) Comprehensive Metabolic Panel (10/30/17 06:47) Lactic Acid Analyzer (10/30/17 06:47) Blood Culture (10/30/17 06:47) Sputum Culture (10/30/17 06:47) Ua Culture If Indicated (10/30/17 06:47) Protime With Inr (10/30/17 06:47) Partial Thromboplastin Time (10/30/17 06:47) Chest 1 View, Ap/Pa Only (10/30/17 06:47) O2 (10/30/17 06:47) Saline Lock/Iv-Start (10/30/17 06:47) Saline Lock/Iv-Start (10/30/17 06:47) Vital Signs Adult Sepsis Patie Q1H (10/30/17 06:47) Remove Rings In Anticipation O (10/30/17 06:47) Saline Lock/Iv-Start (10/30/17 06:47) Ammonia (10/30/17 06:47) BNP (10/30/17 06:47) Hs C Reactive Protein (10/30/17 06:47) Saline Lock/Iv-Start (10/30/17 07:23) Ns Iv 1000 Ml (Sodium Chloride 0.9%) (10/30/17 07:23) Manual Differential (10/30/17 06:50) Red Cells Leukocytes Reduced (10/30/17 07:36) Type And Screen (10/30/17 07:36) Potassium Cl 10meq/50ml Ivpb (Kcl 10 Meq (10/30/17 08:15) Magnesium (10/30/17 08:16) Piperacillin Sodium/Tazobactam (Zosyn Vi (10/30/17 08:30) Medications Given in ED Current Medications Medications Dose Ordered Sig/Sarbjit Route Start Time Stop Time Status Last Admin Dose Admin Potassium Chloride 50 ml @ 50 mls/hr ONCE ONCE IV 10/30/17 08:15 10/30/17 09:14 10/30/17 08:19 50 MLS/HR Sodium Chloride 1,000 ml @ 0 mls/hr Q0M ONCE IV 10/30/17 07:23 10/30/17 07:25 DC 10/30/17 07:29 1,000 MLS/HR Vital Signs/I&O 10/30/17 10/30/17 10/30/17 06:41 06:53 07:25 Temp 98.2 Pulse 67 72 Resp 16 16 B/P (MAP) 82/57 (65) 83/60 (68) Pulse Ox 92 100 O2 Delivery Nasal Cannula Nasal Cannula O2 Flow Rate 2.00 Capillary Refill : Less Than 3 Seconds Blood Pressure Mean: 65 Progress Note #1: Time: 07:15 Progress Note Patient seen and examined. Septic workup is underway as he was initially hypotensive. The remaining portion of the 1 L normal saline bolus started by EMS is infusing. CT of the abdomen and pelvis is anticipated after review of creatinine. Progress Note #2: Time: 08:03 Progress Note Patient's labs have been reviewed. He has severe anemia. He reports no loss of blood, hematochezia, or melena recently. He states his last bowel movement was last night. 2 units of blood have been ordered to give with 2 to hold. Patient received 2 L of IV normal saline boluses. Patient was also found to be severely hypokalemic. Potassium replacement will be started in the ER. Abdomen is distended but does not appear tender and patient reports bowel movements. I will allow the primary care team to assess him and determine if imaging is appropriate. Patient will be admitted to the ICU for his severe electrolyte abnormalities and anemia. I did address CODE STATUS with the patient and he wishes to be a full code at this time. Case has been reviewed with Dr. Hernandez who requested Hydrea be held but requested no other orders at this time. She agrees with transfusion. Dr. Kong excepts admission. UA was collected and results pending at the time of admission. Progress Note #3: Time: 08:40 Progress Note Patient was found to have a significantly low magnesium as well. Magnesium orders were added to the admission set. A PICC line was also ordered. Dr. Kong was provided with an update. UA was still pending. Diagnostic Imaging Diagonstic Imaging: Xray Plain Films/CT/US/NM/MRI: chest Comments Chest x-ray viewed by me and report reviewed. Compared with prior. See report below: NAME: TERI DUGAN [facility] REC#: [id number] PT STATUS: DIS IN : 1945 PHYSICIAN: MIKE OTOOLE MD ADMIT DATE: 03/25/17 Signed Date of Exam:04/03/17 CHEST 1 VIEW, AP/PA ONLY EXAMINATION: Portable upright radiograph of the chest. INDICATION: Central line placement. COMPARISON: 03/30/17. FINDINGS: There is a left subclavian central line with the tip at the upper SVC level. There is no pneumothorax. There is moderate left pleural effusion with left basilar infiltrates or atelectasis. There is moderate cardiomegaly with minimal vascular congestion. The mediastinum and tang appear unremarkable. There are surgical clips seen in the upper abdomen. IMPRESSION: Left basilar infiltrate or atelectasis and moderate left pleural effusion. Cardiomegaly with minimal vascular congestion. Dictated by: Dictated on workstation # [id number] Dict: 04/03/17 1313 Trans: 04/03/17 1425 [facility] [id number] Interpreted by: AMANDA MICHAEL MD Electronically signed by: AMANDA MICHAEL MD 04/03/17 1429 Departure Communication (Admissions) Time/Spoke to Admitting Phy: 08:05 Dr. Hernandez Time/Spoke to Consulting Phy: 07:50 Dr. Kogn Impression Primary Impression: Severe anemia Additional Impressions: Acute hypokalemia Hypocalcemia Generalized weakness Thrombocytopenia Hypotension Qualified Codes: I95.9 - Hypotension, unspecified Hypoalbuminemia Acute renal failure Qualified Codes: N17.9 - Acute kidney failure, unspecified bedbug infestation Hypomagnesemia Disposition: 09 ADMITTED INPATIENT Condition: Improved Admissions Decision to Admit Reason: Admit from ER (General) Decision to Admit/Date: Oct 30, 2017 Time/Decision to Admit Time: 06:45 Departure-Patient Inst. Referrals: [facility] (PCP/Family) Primary Care Physician KYLIE MOREJON MD Oct 30, 2017 07:07
--- NOTE | 2017-10-30 07:12 | Diagnostic Imaging Report ---
INDICATION: Fall Portable upright AP view of the chest is obtained. Since 04/03/2017, there is continued mild cardiomegaly. There is blunting of left costophrenic sulcus similar to previous study. There is no evidence of pneumothorax or new infiltrate. IMPRESSION: Small amount of pleural fluid and/or thickening is similar to previous study. No definite acute abnormality or adverse change is appreciated. Dictated by: Dictated on workstation # [id number]
[2017-10-30 07:23] LABS: BASOPHILS % (AUTO) 0 % (0-10); EOSINOPHILS % (AUTO) 0 % (0-10); LYMPHOCYTES # (AUTO) 0.5 X 10^3 (1.0-4.0); LYMPHOCYTES % (AUTO) 8 % (12-44); MEAN CORPUSCULAR HEMOGLOBIN 38 PG (25-34); MEAN CORPUSCULAR HGB CONC 36 G/DL (32-36); MEAN CORPUSCULAR VOLUME 104 FL (80-99); MONOCYTES # (AUTO) 0.5 X 10^3 (0.0-1.0); MONOCYTES % (AUTO) 8 % (0-12); NEUTROPHILS # (AUTO) 5.2 X 10^3 (1.8-7.8); NEUTROPHILS % (AUTO) 84 % (42-75); PLATELET COUNT 101 10^3/uL (130-400); RED BLOOD COUNT 1.69 10^6/uL (4.35-5.85); WHITE BLOOD COUNT 6.2 10^3/uL (4.3-11.0)
[2017-10-30] MEDS ORDERED: NS IV 1000 ML 1,000 ML IV ONE (07:23)
[2017-10-30 07:26] LABS: INR 1.3 (0.8-1.4); PROTHROMBIN TIME PATIENT 16.3 SEC (12.2-14.7)
[2017-10-30 07:30] LABS: HEMATOCRIT 18 % (40-54); HEMOGLOBIN 6.4 G/DL (13.3-17.7)
[2017-10-30 07:50] LABS: ALBUMIN 1.8 GM/DL (3.2-4.5); BILIRUBIN,TOTAL 0.8 MG/DL (0.1-1.0); CREATININE SERUM 2.54 MG/DL (0.60-1.30); TOTAL PROTEIN 4.6 GM/DL (6.4-8.2)
[2017-10-30 07:54] LABS: CALCIUM 4.4 MG/DL (8.5-10.1); POTASSIUM 1.5 MMOL/L (3.6-5.0)
[2017-10-30] MEDS ORDERED: POTASSIUM CL 10MEQ/50ML IVPB 50 ML IV ONE (08:15)
[2017-10-30 08:23] LABS: ANISOCYTOSIS SLIGHT; BAND NEUTROPHILS 2 %; BASOPHILS % (MANUAL) 0 %; EOSINOPHILS % (MANUAL) 0 %; HOWELL-JOLLY BODIES SLIGHT; LYMPHOCYTES % (MANUAL) 6 %; MONOCYTES % (MANUAL) 4 %; NEUTROPHILS % (MANUAL) 88 %; POIKILOCYTOSIS SLIGHT
[2017-10-30] MEDS ORDERED: PIPERACILLIN SODIUM/TAZOBACTAM 4.5 GM in D5W 100 ML IVPB 100 ML IV ONE (08:30)
[2017-10-30 08:36] LABS: BILIRUBIN,URINE NEGATIVE (NEGATIVE); CLARITY,URINE CLEAR; COLOR,URINE YELLOW; GLUCOSE, URINE (UA) NEGATIVE (NEGATIVE); KETONES,URINE NEGATIVE (NEGATIVE); LEUKOCYTE ESTERASE ,URINE NEGATIVE (NEGATIVE); NITRITE,URINE NEGATIVE (NEGATIVE); PH,URINE 6 (5-9); PROTEIN,URINE 2+ (NEGATIVE); UROBILINOGEN,URINE NORMAL (NORMAL)
[2017-10-30 08:44] LABS: BACTERIA,URINE TRACE /HPF; WBC,URINE 0-2 /HPF
[2017-10-30] MEDS ORDERED: ONDANSETRON 4 MG/2 ML (SDV) Z0FRAN IVP PRN (09:15)
[2017-10-30] MEDS: POTASSIUM CL 10 MEQ/50 ML IVPB (PRE-MIX) IV SCH ×8 (10:07→16:45)
[2017-10-30] MEDS: MAGNESIUM 1 GM/100 ML IVPB IV SCH ×4 (10:07→14:15)
--- NOTE | 2017-10-30 11:54 | History & Physicial ([facility]) ---
HPI History of Present Illness: This 72-year-old gentleman presents to the emergency room via EMS after having difficulty ambulating in the home. EMS was under the impression that the patient had a fall but he denies falling. He states he would have fallen if his family hadn't helped support him. He is alert to person, place and age. He is disoriented to month. He is alert but appears weak and somewhat lethargic. He was hypotensive for EMS with a blood pressure of 76/52. Mucous membranes are dry. Blood pressure responded well to IV fluids. Blood pressure was 92/55 after 300 mL of normal saline. Patient has a distended abdomen and reported nausea area and EMS gave Zofran 4 mg IV. Patient thinks he may have been vomiting at home recently. Patient has been weak lately and has been requiring full assist assistance for ambulation from family. He has had multiple admissions within the last year for various problems including bowel obstruction from a colonic stricture and hypokalemia. [facility]. Documentation reviewed noted that patient has poor hygiene and inability to care for himself. However, he refused placement in a nursing or assisted care facility. It was noted that family also is unable to care for his needs. Patient arrives disheveled and infested with bedbugs and other bugs. Patient was seen the end of September in the ER for a suspected spider bite on the posterior left shoulder. Pt admitted to the ICU for further treatment. Source: patient, family, RN/MD, RN notes reviewed, old records Exam Limitations: clinical condition Date seen by provider: Oct 30, 2017 Time Seen by Provider: 16:30 Attending Physician Nadia Rodriguez DO [facility] [place] Consult Hematology Date of Admission Oct 30, 2017 at 08:18 Home Medications Home Medications Reviewed patient Home Medication Reconciliation performed by pharmacy medication reconciliations photographic equipment technician and/or nursing. Patients Allergies have been reviewed. Allergies Coded Allergies: No Known Drug Allergies (Verified , 06/14/17) SXL-Xfsawx-Sqhiwe Hx Patient Social History Marrital Status: single Living Status: lives with son and grandson Employed/Student: unemployed Alcohol Use: Denies Use Recreational Drug Use: No Smoking Status: Never a Smoker 2nd Hand Smoke Exposure: No Recent Foreign Travel: No Contact w/other who traveled: No Recent Hopitalizations: No Recent Infectious Disease Expo: No Physical Abuse Screen: No Sexual Abuse: No Immunizations Up To Date Tetanus Booster (TDap): Unknown Past Medical History PMHx: HTN Chronic non-ischemic systolic heart failure GERD Thrombocythemia Anemia Intermittent renal insufficiency BPH Posterior tibial vein thrombosis Pernicious anemia/B12 deficiency Rodrigues's esophagus Pulmonary embolism Sigmoid lesion nearly obstructive, biopsied 03/2017 PSurgHx: Right hip replacement Gastrectomy Splenectomy Appendectomy Multiple EGD/colonoscopies Sigmoid lesion biopsy Family Medical History Significant Family History: No Pertinent Family Hx Review of Systems ([facility]) Constitutional: see HPI EENTM: see HPI Respiratory: no symptoms reported Cardiovascular: no symptoms reported Gastrointestinal: see HPI Genitourinary: see HPI Musculoskeletal: no symptoms reported Skin: see HPI Psychiatric/Neurological: See HPI, Weakness Reviewed Test Results Reviewed Test Results Lab Microbiology 10/30/17 Blood Culture - Preliminary, Resulted No growth 10/30/17 Blood Culture - Preliminary, Resulted No growth 10/30/17 MRSA Screen - Final, Complete MRSA not isolated 10/30/17 06:50: Lactic Acid Level 2.44*H 10/30/17 09:04: Lactic Acid Level 1.41 Laboratory Tests Test 10/30/17 06:50 10/30/17 08:05 10/30/17 09:04 10/30/17 10:45 Range/Units White Blood Count 6.2 4.3-11.0 10^3/uL Red Blood Count 1.69 L 4.35-5.85 10^6/uL Hemoglobin 6.4 *L 13.3-17.7 G/DL Hematocrit 18 *L 40-54 % Mean Corpuscular Volume 104 H 80-99 FL Mean Corpuscular Hemoglobin 38 H 25-34 PG Mean Corpuscular Hemoglobin Concent 36 32-36 G/DL Red Cell Distribution Width 18.0 H 10.0-14.5 % Platelet Count 101 L 130-400 10^3/uL Mean Platelet Volume 7.4-10.4 FL Neutrophils (%) (Auto) 84 H 42-75 % Lymphocytes (%) (Auto) 8 L 12-44 % Monocytes (%) (Auto) 8 0-12 % Eosinophils (%) (Auto) 0 0-10 % Basophils (%) (Auto) 0 0-10 % Neutrophils # (Auto) 5.2 1.8-7.8 X 10^3 Lymphocytes # (Auto) 0.5 L 1.0-4.0 X 10^3 Monocytes # (Auto) 0.5 0.0-1.0 X 10^3 Eosinophils # (Auto) 0.0 0.0-0.3 10^3/uL Basophils # (Auto) 0.0 0.0-0.1 10^3/uL Neutrophils % (Manual) 88 % Lymphocytes % (Manual) 6 % Monocytes % (Manual) 4 % Eosinophils % (Manual) 0 % Basophils % (Manual) 0 % Band Neutrophils 2 % Poikilocytosis SLIGHT Anisocytosis SLIGHT Macrocytosis SLIGHT [place] Bodies SLIGHT Prothrombin Time 16.3 H 12.2-14.7 SEC INR Comment 1.3 0.8-1.4 Activated Partial Thromboplast Time 28 24-35 SEC Sodium Level 147 H 135-145 MMOL/L Potassium Level 1.5 *L 3.6-5.0 MMOL/L Chloride Level 106 98-107 MMOL/L Carbon Dioxide Level 25 21-32 MMOL/L Anion Gap 16 H 5-14 MMOL/L Blood Urea Nitrogen 60 H 7-18 MG/DL Creatinine 2.54 H 0.60-1.30 MG/DL Estimat Glomerular Filtration Rate 25 BUN/Creatinine Ratio 24 Glucose Level 109 H 70-105 MG/DL Lactic Acid Level 2.44 *H 1.41 0.50-2.00 MMOL/L Calcium Level 4.4 *L 8.5-10.1 MG/DL Magnesium Level < 0.7 *L 1.8-2.4 MG/DL Total Bilirubin 0.8 0.1-1.0 MG/DL Aspartate Amino Transf (AST/SGOT) 51 H 5-34 U/L Alanine Aminotransferase (ALT/SGPT) 39 0-55 U/L Alkaline Phosphatase 89 40-136 U/L Ammonia 21 11-32 UMOL/L C-Reactive Protein High Sensitivity 2.22 H 0.00-0.50 MG/DL B-Type Natriuretic Peptide 904.5 H <100.0 PG/ML Total Protein 4.6 L 6.4-8.2 GM/DL Albumin 1.8 L 3.2-4.5 GM/DL Urine Color YELLOW Urine Clarity CLEAR Urine pH 6 5-9 Urine Specific [place] 1.010 L 1.016-1.022 Urine Protein 2+ H NEGATIVE Urine Glucose (UA) NEGATIVE NEGATIVE Urine Ketones NEGATIVE NEGATIVE Urine Nitrite NEGATIVE NEGATIVE Urine Bilirubin NEGATIVE NEGATIVE Urine Urobilinogen NORMAL NORMAL MG/DL Urine Leukocyte Esterase NEGATIVE NEGATIVE Urine RBC (Auto) 4+ H NEGATIVE Urine RBC 2-5 H /HPF Urine WBC 0-2 /HPF Urine Squamous Epithelial Cells 2-5 /HPF Urine Crystals NONE /LPF Urine Bacteria TRACE /HPF Urine Casts NONE /LPF Urine Mucus NEGATIVE /LPF Urine Culture Indicated NO Stool Occult Blood Immunoassay POSITIVE H NEGATIVE Test 10/30/17 16:45 10/31/17 03:20 10/31/17 15:30 Range/Units Phosphorus Level 5.9 H 5.8 H 2.3-4.7 MG/DL White Blood Count 5.8 4.3-11.0 10^3/uL Red Blood Count 2.63 L 4.35-5.85 10^6/uL Hemoglobin 8.9 #L 13.3-17.7 G/DL Hematocrit 25 L 40-54 % Mean Corpuscular Volume 96 80-99 FL Mean Corpuscular Hemoglobin 34 25-34 PG Mean Corpuscular Hemoglobin Concent 35 32-36 G/DL Red Cell Distribution Width 19.0 H 10.0-14.5 % Platelet Count 98 L 130-400 10^3/uL Mean Platelet Volume 7.4-10.4 FL Neutrophils (%) (Auto) 82 H 42-75 % Lymphocytes (%) (Auto) 10 L 12-44 % Monocytes (%) (Auto) 8 0-12 % Eosinophils (%) (Auto) 0 0-10 % Basophils (%) (Auto) 0 0-10 % Neutrophils # (Auto) 4.8 1.8-7.8 X 10^3 Lymphocytes # (Auto) 0.6 L 1.0-4.0 X 10^3 Monocytes # (Auto) 0.5 0.0-1.0 X 10^3 Eosinophils # (Auto) 0.0 0.0-0.3 10^3/uL Basophils # (Auto) 0.0 0.0-0.1 10^3/uL Sodium Level 149 H 146 H 135-145 MMOL/L Potassium Level 1.3 *L 1.7 *L 3.6-5.0 MMOL/L Chloride Level 109 H 109 H 98-107 MMOL/L Carbon Dioxide Level 24 24 21-32 MMOL/L Anion Gap 16 H 13 5-14 MMOL/L Blood Urea Nitrogen 63 H 62 H 7-18 MG/DL Creatinine 2.43 H 2.37 H 0.60-1.30 MG/DL Estimat Glomerular Filtration Rate 26 27 BUN/Creatinine Ratio 26 26 Glucose Level 82 156 H 70-105 MG/DL Calcium Level 4.5 *L 4.8 *L 8.5-10.1 MG/DL Magnesium Level 1.1 L 1.8-2.4 MG/DL Radiology Date of Exam: 10/30/17 CHEST 1 VIEW, AP/PA ONLY INDICATION: Fall Portable upright AP view of the chest is obtained. Since 04/03/2017, there is continued mild cardiomegaly. There is blunting of left costophrenic sulcus similar to previous study. There is no evidence of pneumothorax or new infiltrate. IMPRESSION: Small amount of pleural fluid and/or thickening is similar to previous study. No definite acute abnormality or adverse change is appreciated. Date of Exam: 10/30/17 CHEST 1 VIEW, AP/PA ONLY INDICATION: Line placement. TECHNIQUE: Single view chest 1:46 PM. CORRELATION STUDY: 10/30/2017 FINDINGS: Since prior study, right-sided central line has been placed tip projects near the cavoatrial junction. Heart size and mediastinum remain enlarged and prominent. Vasculature appears slightly increased. Continued pleural effusions along with consolidation in the lung bases left greater than right. Likely component of interstitial edema as well. Prominent gas-distended bowel in the upper abdomen. Multiple surgical clips are present. IMPRESSION: 1. Right-sided central line has been placed tip projected over the expected location of the cavoatrial junction. 2. Vasculature appears perhaps slightly increased from earlier in the day. Physical Exam-([facility]) Physical Exam Vital Signs VS - Last 72 Hours, by Label 10/30/17 10/30/17 10/30/17 10/30/17 06:41 06:53 07:25 09:00 Temp 98.2 Pulse 67 72 70 Resp 16 16 18 B/P (MAP) 82/57 (65) 83/60 (68) 100/65 Pulse Ox 92 100 98 O2 Delivery Nasal Cannula Nasal Cannula Room Air O2 Flow Rate 2.00 10/30/17 10/30/17 10/30/17 10/30/17 09:29 09:30 10:00 11:00 Temp 95.5 Pulse 68 72 65 Resp 12 11 10 B/P (MAP) 92/60 (71) 112/83 (93) 100/75 (83) Pulse Ox 100 O2 Delivery Nasal Cannula Nasal Cannula Nasal Cannula Nasal Cannula O2 Flow Rate 2.00 2.00 2.00 2.00 10/30/17 10/30/17 10/30/17 10/30/17 11:08 11:32 13:00 13:00 Temp 97.2 Pulse 69 68 71 Resp 12 10 B/P (MAP) 100/72 (81) 104/86 (92) Pulse Ox 99 97 O2 Delivery Nasal Cannula Nasal Cannula Nasal Cannula O2 Flow Rate 2.00 2.00 2.00 10/30/17 10/30/17 10/30/17 10/30/17 14:00 14:13 14:13 14:29 Temp 97.2 97.2 97.0 Pulse 70 63 63 67 Resp 01 30 12 12 B/P (MAP) 99/81 (87) 97/70 (79) 97/70 93/69 Pulse Ox 90 95 95 98 O2 Delivery Nasal Cannula Room Air Room Air Room Air O2 Flow Rate 2.00 95.00 10/30/17 10/30/17 10/30/17 10/30/17 15:00 15:04 16:00 16:43 Temp 97.2 Pulse 68 58 73 Resp 10 13 12 B/P (MAP) 93/79 (84) 98/74 (82) 94/65 Pulse Ox 89 98 95 96 O2 Delivery Room Air Room Air Room Air Room Air 10/30/17 10/30/17 10/30/17 10/30/17 17:00 17:12 17:27 18:00 Temp 97.2 97.3 Pulse 65 67 63 57 Resp 10 12 12 14 B/P (MAP) 95/75 (82) 103/65 101/67 96/66 (76) Pulse Ox 98 97 98 97 O2 Delivery Room Air Room Air Room Air Room Air 10/30/17 10/30/17 10/30/17 10/30/17 19:00 19:00 19:52 20:00 Temp 97.6 97.6 Pulse 58 60 59 Resp 7 13 B/P (MAP) 96/61 (73) 97/69 Pulse Ox 97 98 O2 Delivery Room Air Room Air Room Air 10/30/17 10/30/17 10/30/17 10/30/17 20:00 20:00 21:00 22:00 Pulse 61 68 63 Resp 8 12 8 B/P (MAP) 99/63 (75) 100/68 (79) 106/71 (83) Pulse Ox 95 98 96 96 O2 Delivery Room Air Room Air Room Air Room Air 10/30/17 10/31/17 10/31/17 10/31/17 23:10 00:00 00:00 00:15 Temp 97.8 Pulse 6 65 Resp 10 9 B/P (MAP) 98/66 (77) 94/61 (72) Pulse Ox 97 98 97 O2 Delivery Room Air Room Air Room Air 10/31/17 10/31/17 10/31/17 10/31/17 01:00 01:00 02:00 03:00 Pulse 65 65 65 60 Resp 11 11 8 B/P (MAP) 87/55 (66) 99/62 (74) 94/61 (72) Pulse Ox 97 96 94 O2 Delivery Room Air Room Air Room Air 10/31/17 10/31/17 10/31/17 10/31/17 04:00 04:00 04:00 05:00 Temp 97.3 Pulse 58 69 Resp 9 17 B/P (MAP) 104/67 (79) 107/69 (82) Pulse Ox 98 92 95 O2 Delivery Room Air Room Air Room Air 10/31/17 10/31/17 10/31/17 10/31/17 06:00 07:00 07:00 07:59 Temp 97.0 Pulse 57 60 68 Resp 9 9 B/P (MAP) 103/65 (78) 95/67 (76) Pulse Ox 94 92 96 O2 Delivery Room Air Room Air Room Air 10/31/17 10/31/17 10/31/17 10/31/17 08:00 08:00 09:00 10:24 Pulse 62 105 69 Resp 11 14 15 B/P (MAP) 96/68 (77) 105/69 (81) 88/64 (72) Pulse Ox 95 98 98 O2 Delivery Room Air Room Air Room Air Room Air 10/31/17 10/31/17 10/31/17 10/31/17 11:00 11:20 12:10 13:00 Pulse 58 59 56 Resp 10 8 8 B/P (MAP) 92/59 (70) 96/62 (73) 99/60 (73) Pulse Ox 96 96 96 O2 Delivery Room Air Room Air Room Air Room Air 10/31/17 10/31/17 10/31/17 10/31/17 13:00 13:16 14:00 15:00 Temp 97.0 Pulse 56 64 68 Resp 14 14 B/P (MAP) 96/68 (77) 90/63 (72) Pulse Ox 99 96 O2 Delivery Room Air Room Air 10/31/17 10/31/17 10/31/17 10/31/17 16:00 16:27 16:39 17:00 Temp 96.8 Pulse 56 55 Resp 9 9 B/P (MAP) 96/61 (73) 82/51 (61) Pulse Ox 90 95 O2 Delivery Room Air Room Air Room Air 10/31/17 10/31/17 10/31/17 10/31/17 18:00 19:00 20:00 20:32 Temp 97.5 Pulse 63 72 Resp 14 B/P (MAP) 95/65 (75) Pulse Ox 96 O2 Delivery Room Air Capillary Refill : Less Than 3 Seconds General Appearance: WD/WN, no apparent distress Eyes: Bilateral Eye EOMI, Bilateral Eye Conjunctivae Pale HEENT: normal ENT inspection; No scleral icterus (R), No scleral icterus (L); pale conjunctivae (R), pale conjunctivae (L); No photophobia Neck: non-tender, full range of motion, supple, normal inspection Respiratory: chest non-tender, no accessory muscle use, decreased breath sounds , rhonchi Cardiovascular: regular rate, rhythm, no gallop, systolic murmur, other ( peripheral edema) Gastrointestinal: normal bowel sounds, non tender, soft, no pulsatile mass, distended Rectal: heme positive stool Back: no CVA tenderness, no vertebral tenderness Extremities: normal range of motion, non-tender, no calf tenderness, slow capillary refill, swelling Neurologic/Psychiatric: medical scientist II-XII nml as tested, alert, normal mood/affect, oriented x 3, motor weakness Skin: warm/dry, pallor Assessment/Plan Assessment/Plan Admission Dx Hypokalemia Hypomagnesemia Severe Anemia Sepsis Bilateral PNA Hypocalcemia Acute Renal Insufficiency GI Bleed Sigmoid Stricture Thrombocythemia Personal Hx of PE Protein Calorie Malnutrition Chronic Combined Systolic and Diastolic Heart Failure, without evidence of decompensation Risk for Falls Generalized Weakness Admission Status: Inpatient Order (span 2 midnights) Reason for Inpatient Admission: treatment and stabilization of admission conditions (1) GI bleed Status: Chronic Assessment & Plan: 10/30 -heme positive stools -known hx of gastric bleed and colon stricture -no active bleeding noted, will hold on imaging for now due to acute renal failure Qualifiers: Qualified Codes: K92.2 - Gastrointestinal hemorrhage, unspecified (2) Sepsis Status: Acute Assessment & Plan: suspected secondary to PNA Qualifiers: Qualified Codes: A41.9 - Sepsis, unspecified organism (3) PNA (pneumonia) Status: Acute Qualifiers: (4) Hypokalemia Status: Acute Assessment & Plan: 10/30 1.5 on admission -replace aggressively with IV replacement -recheck in AM (5) Hypomagnesemia Status: Acute Assessment & Plan: 10/30 -<0.5 on admission -replace and recheck in AM (6) Hypocalcemia Status: Acute Assessment & Plan: 10/30 -4.4 on admission (7) Acute renal failure Status: Acute Assessment & Plan: 10/30 -Cr 2.54 on admission -GFR 25 -BUN 60 -fluid resuscitation, recheck in AM, avoid nephrotoxic medications when possible Qualifiers: Qualified Codes: N17.9 - Acute kidney failure, unspecified (8) Severe anemia Status: Acute Assessment & Plan: 10/30 -6.4 on admission -transfuse 2 units and recheck in AM (9) Hypotension Status: Acute Assessment & Plan: 10/30 -responding to fluid resuscitation -will utilize pressors if needed Qualifiers: Qualified Codes: I95.9 - Hypotension, unspecified (10) Hypoalbuminemia Status: Acute Assessment & Plan: 10/30 -1.8 on admission (11) Generalized weakness Status: Chronic Assessment & Plan: 10/30 -family reports that he is getting harder to take care of at home and they don' t feel that they can do it anymore, but patient does not want to go to a [facility] per family report and pt's previous chart notes -based on pt's condition at admission, he cannot appropriately be taken care of at home, and placement will need to be pursued at discharge (12) Thrombocythemia Status: Chronic Assessment & Plan: 10/30 -[facility] -consult to Dr. Hernandez (13) History of pulmonary embolism Status: Chronic Permanent Comment: 03/2017 Last Edited By: Alisha San on Jun 22, 2017 14: 28 (14) Chronic combined systolic and diastolic CHF (congestive heart failure) Status: Chronic Permanent Comment: Cardiac Cath 2014 with nonischemic cardiomyopathy and EF 40% Echocardiogram 01/2017 with aortic root mildly dilated, grade 1 diastolic dysfunction, EF 55-65% and hypokinesis inferior myocardium Stress test 01/2017 negative for ischemia, had predominantly fixed apical defect with mild reversability and low normal LV function Last Edited By: Alisha San on Jun 22, 2017 14:23 (15) At risk for falls Status: Chronic (16) Sigmoid stricture Status: Chronic Assessment & Plan: -pt not a surgical candidate until more medically stable, which he has been unable to achieve (17) Protein calorie malnutrition Status: Chronic Assessment & Plan: 10/30 -prealbumin 10 in Jun -will recheck Qualifiers: Qualified Codes: E44.0 - Moderate protein-calorie malnutrition (18) DVT prophylaxis Status: Acute Assessment & Plan: 10/30 -hold anticoagulation today, pt with significant anemia and receiving transfusion Clinical Quality Measures DVT/VTE Risk/Contraindication: Risk Factor Score Per Nursin RFS Level Per Nursing on Admit: 4+=Very High Copy Copies To 1: [facility]/NADIA FOY DO Oct 30, 2017 11:54
[2017-10-30] MEDS ORDERED: NS (IVPB) 250 ML IV ONE (13:00)
--- NOTE | 2017-10-30 14:02 | Diagnostic Imaging Report ---
INDICATION: Line placement. TECHNIQUE: Single view chest 1:46 PM. CORRELATION STUDY: 10/30/2017 FINDINGS: Since prior study, right-sided central line has been placed tip projects near the cavoatrial junction. Heart size and mediastinum remain enlarged and prominent. Vasculature appears slightly increased. Continued pleural effusions along with consolidation in the lung bases left greater than right. Likely component of interstitial edema as well. Prominent gas-distended bowel in the upper abdomen. Multiple surgical clips are present. IMPRESSION: 1. Right-sided central line has been placed tip projected over the expected location of the cavoatrial junction. 2. Vasculature appears perhaps slightly increased from earlier in the day. Dictated by: Dictated on workstation # [id number]
[2017-10-30] MEDS ORDERED: POTA20LI3 PO (15:08)
--- NOTE | 2017-10-30 16:28 | Oncology Consultation ---
Visit Information Visit Information Date of Admission Oct 30, 2017 at 08:18 Attending Physician Nadia Rodriguez DO [facility] Chief Complaint Anemia Hb 6.8. general weakness. Interval History This 72-year-old gentleman know to me at the cancer center for treatment of thrombocythemia on Hydrea and pernicious anemia on B12 injection. He presents to the emergency room via EMS after having difficulty ambulating in the home. He is alert but appears weak and somewhat lethargic. He was hypotensive with a blood pressure of 76/52. Patient has a distended abdomen and reported nausea. He has had multiple admissions within the last year for various problems including bowel obstruction from a colonic stricture and hypokalemia. We have tried multiple times to help patient poor hygiene and inability to care for himself. However, he refused placement in a nursing or assisted care facility. It was noted that family also is unable to care for his needs. Patient infested with bedbugs and other bugs. At ER, he was noticed Hb 6.8, acute elevated Cr and BUN. His stool occult blood was positive. I consulted the patient on: 10/30/17 16:26 Time Seen by Provider: 15:30 Constitutional: weakness EENTM: see HPI Respiratory: no symptoms reported Gastrointestinal: nausea, vomiting Skin: dryness Psychiatric/Neurological: No Symptoms Reported Health Status Allergies Coded Allergies: No Known Drug Allergies (Verified , 06/14/17) Home Medications Aspirin (Aspirin EC) 81 Mg Tablet.dr, 81 MG PO DAILY, (Reported) Hydroxyurea (Hydroxyurea) 500 Mg Capsule, 500 MG PO DAILY, (Reported) Iron Polysaccharide Complex (Poly-Iron) 150 Mg Capsule, 150 MG PO BID, (Reported ) Pantoprazole Sodium (Pantoprazole Sodium) 40 Mg Tablet.dr, 40 MG PO DAILY, ( Reported) LAST FILLED 06-14-17 #90 Potassium Chloride (Potassium Chloride) 20 Meq/15 Ml Liquid, 15 ML PO DAILY, ( Reported) LAST FILLED 08-22-17 #473 DILUTE IN GLASS OF WATER AND DRINK DAILY [id number] Hx Patient Social History Alcohol Use: Denies Use Recreational Drug Use: No Smoking Status: Never a Smoker 2nd Hand Smoke Exposure: No Recent Foreign Travel: No Contact w/other who traveled: No Recent Infectious Disease Expo: No Recent Hopitalizations: No Physical Abuse Screen: No Sexual Abuse: No Immunizations Up To Date Tetanus Booster (TDap): Unknown Family Medical History Significant Family History: No Pertinent Family Hx Physical Exam Vital Signs Vital Signs - First Documented 10/30/17 10/30/17 10/30/17 06:41 06:53 07:25 Temp 98.2 Pulse 67 Resp 16 B/P (MAP) 82/57 (65) Pulse Ox 92 O2 Delivery Nasal Cannula O2 Flow Rate 2.00 Capillary Refill : Less Than 3 Seconds General Appearance: No Apparent Distress, Thin HEENT: PERRL/EOMI Neck: Non Tender, Supple Respiratory: Lungs Clear Cardiovascular: Regular Rate, Rhythm, No Edema Gastrointestinal: Soft, Distended Extremity: Non Tender, No Calf Tenderness, No Pedal Edema Neurologic/Psychiatric: Alert, Oriented x3 Data Review Labs Laboratory Tests 10/31/17 03:20 10/31/17 15:30 Laboratory Tests 10/30/17 06:50: Red Blood Count 1.69L, Hemoglobin 6.4*L, Hematocrit 18*L, Mean Corpuscular Volume 104H, Mean Corpuscular Hemoglobin 38H, Red Cell Distribution Width 18.0H , Platelet Count 101L, Neutrophils (%) (Auto) 84H, Lymphocytes (%) (Auto) 8L, Lymphocytes # (Auto) 0.5L, Prothrombin Time 16.3H, Sodium Level 147H, Potassium Level 1.5*L, Anion Gap 16H, Blood Urea Nitrogen 60H, Creatinine 2.54H, Glucose Level 109H, Lactic Acid Level 2.44*H, Calcium Level 4.4*L, Magnesium Level < 0.7 *L, Aspartate Amino Transf (AST/SGOT) 51H, C-Reactive Protein High Sensitivity 2.22H, B-Type Natriuretic Peptide 904.5H, Total Protein 4.6L, Albumin 1.8L 10/30/17 08:05: Urine Specific [place] 1.010L, Urine Protein 2+H, Urine RBC (Auto) 4+H, Urine RBC 2-5H 10/30/17 09:04: 10/30/17 10:45: Stool Occult Blood Immunoassay POSITIVEH 10/30/17 16:45: Phosphorus Level 5.9H 10/31/17 03:20: Phosphorus Level 5.8H, Red Blood Count 2.63L, Hemoglobin 8.9#L, Hematocrit 25L, Red Cell Distribution Width 19.0H, Platelet Count 98L, Neutrophils (%) (Auto) 82H, Lymphocytes (%) (Auto) 10L, Lymphocytes # (Auto) 0.6L, Sodium Level 149H, Potassium Level 1.3*L, Chloride Level 109H, Anion Gap 16H, Blood Urea Nitrogen 63H, Creatinine 2.43H, Calcium Level 4.5*L, Magnesium Level 1.1L 10/31/17 15:30: Sodium Level 146H, Potassium Level 1.7*L, Chloride Level 109H, Blood Urea Nitrogen 62H, Creatinine 2.37H, Calcium Level 4.8*L, Glucose Level 156H Impression & Plan Impression & Plan IMP: 1. Severe hypokalemia on IV replacement 2. Anemia, multi-factorials, GI bleeding, bug infection, Hydrea, 3. h/o partial gastrectomy, pernicious anemia 4. bedbug infection 5. colonic strictures, s/p multiple biopsies no malignancy 6. Malnutrition 7. Thrombocythemia in the past Plt over 1 million. Now becoming thrombocytopenia Plt 101,000. Watch for now. Plan: 1. Protonix and Carafate 2. Transfuse 2 units of RBC. Hold of Hydrea unless Plt above 500,000 3. A dose of B12 injection 4. Replace electrolytes 5. Disinfection of bugs 6. 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 ANNE TALLEY MD Oct 30, 2017 16:28
[2017-10-31] VITALS (24 sets, daily range): BP systolic 82–107; BP diastolic 51–77
[2017-10-31 03:48] LABS: BASOPHILS % (AUTO) 0 % (0-10); EOSINOPHILS % (AUTO) 0 % (0-10); HEMATOCRIT 25 % (40-54); HEMOGLOBIN 8.9 G/DL (13.3-17.7); LYMPHOCYTES # (AUTO) 0.6 X 10^3 (1.0-4.0); LYMPHOCYTES % (AUTO) 10 % (12-44); MEAN CORPUSCULAR HEMOGLOBIN 34 PG (25-34); MEAN CORPUSCULAR HGB CONC 35 G/DL (32-36); MEAN CORPUSCULAR VOLUME 96 FL (80-99); MONOCYTES # (AUTO) 0.5 X 10^3 (0.0-1.0); MONOCYTES % (AUTO) 8 % (0-12); NEUTROPHILS # (AUTO) 4.8 X 10^3 (1.8-7.8); NEUTROPHILS % (AUTO) 82 % (42-75); PLATELET COUNT 98 10^3/uL (130-400); RED BLOOD COUNT 2.63 10^6/uL (4.35-5.85); WHITE BLOOD COUNT 5.8 10^3/uL (4.3-11.0)
[2017-10-31 04:37] LABS: CREATININE SERUM 2.43 MG/DL (0.60-1.30); MAGNESIUM 1.1 MG/DL (1.8-2.4); PHOSPHORUS 5.8 MG/DL (2.3-4.7)
[2017-10-31 05:01] LABS: CALCIUM 4.5 MG/DL (8.5-10.1); POTASSIUM 1.3 MMOL/L (3.6-5.0)
[2017-10-31] MEDS: MAGNESIUM 1 GM/100 ML IVPB 100 ML IV SCH ×5 (05:15→16:28)
[2017-10-31] MEDS ORDERED: CALCIUM GLUC. 10% 4.65 MEQ/10 ML VIAL ONE (05:32)
[2017-10-31] MEDS ORDERED: NS (IVPB) 50 ML ONE (05:33)
[2017-10-31] MEDS ORDERED: CALCIUM GLUC. 10% 4.65 MEQ/10 ML VIAL IV ONE (05:45)
[2017-10-31] MEDS: POTASSIUM CL 10MEQ/50ML IVPB 50 ML IV SCH ×7 (05:48→22:34)
[2017-10-31] MEDS: KCL 20 MEQ TAB (K-DUR) PO SCH (05:49)
[2017-10-31] MEDS: POTASSIUM CL 10 MEQ/50 ML IVPB (PRE-MIX) IV SCH ×6 (05:55→13:15)
[2017-10-31] MEDS: PANTOPRAZOLE 40 MG (PROTONIX) TAB PO SCH (07:13)
--- NOTE | 2017-10-31 08:54 | Diagnostic Imaging Report ---
INDICATION: Anemia and renal failure and hypokalemia. Frontal chest obtained at 3:41 a.m. and compared to 10/30/2017 FINDINGS: The heart is enlarged and appears similar to the prior study. The right-sided PICC line is unchanged. There is bibasilar infiltrate which is unchanged compared to the prior study. There is a small amount of pleural fluid in the left costophrenic angle. This appears mildly decreased compared to yesterday. IMPRESSION: Cardiomegaly. Unchanged bibasilar infiltrates. Mild decrease in left pleural fluid compared to the prior study. Dictated by: Dictated on workstation # [id number]
[2017-10-31] MEDS: CEFEPIME INJECTION 2,000 MG in NS (IVPB) 50 ML IV SCH (13:14)
[2017-10-31 15:53] LABS: CREATININE SERUM 2.37 MG/DL (0.60-1.30)
[2017-10-31 15:56] LABS: CALCIUM 4.8 MG/DL (8.5-10.1); POTASSIUM 1.7 MMOL/L (3.6-5.0)
[2017-10-31] MEDS ORDERED: CATHETER FLUSH 10 ML SYR IV PRN (16:30)
--- NOTE | 2017-10-31 16:31 | Physician Progress Note ---
Progress Note Assessment/Plan Time Seen by Provider: 16:00 Events since last exam Pt had two units of RBC transfusion yesterday and Hb is up properly from 6.4 to 8.9. Still severe electrolytes abnormality despite of IV replacement of K+, Mg++. CXR showed bilateral pneumonia. He is still very weak but alert orientated. He wants to go home. Assessment/Plan IMP: 1. Severe hypokalemia on IV replacement 2. Anemia, multi-factorials, GI bleeding, bug infection, Hydrea, 3. h/o partial gastrectomy, pernicious anemia 4. bedbug infection 5. colonic strictures, s/p multiple biopsies no malignancy 6. Malnutrition 7. Thrombocythemia in the past Plt over 1 million. Now becoming thrombocytopenia Plt 91k today. Most likely due to the infection, acute renal failure 8. Bilateral pneumonia. Plan: 1. Continue Protonix and Carafate 2. Hold of Hydrea unless Plt above 500,000 3. A dose of B12 injection 4. Replace electrolytes 5. Disinfection of bugs 6. drug worker consult. Vitals Last set of Vitals Signs Vital Signs Date Time Temp Pulse Resp B/P (MAP) Pulse Ox O2 Delivery O2 Flow Rate FiO2 10/31/17 13:16 97.0 10/31/17 13:00 56 10/31/17 12:10 8 96/62 (73) 96 Room Air 10/30/17 14:13 95.00 I&O I&O Intake and Output 10/31/17 00:00 Intake Total 1887 ml Output Total 775 ml Balance 1112 ml Intake Oral 537 ml IV Total 1350 ml Output Urine Total 775 ml # Bowel Movements 2 Daily Weight Change Unsure Labs Laboratory Tests 10/30/17 16:45: Phosphorus Level 5.9H 10/31/17 03:20: Phosphorus Level 5.8H, White Blood Count 5.8, Red Blood Count 2.63L, Hemoglobin 8.9#L, Hematocrit 25L, Mean Corpuscular Volume 96, Mean Corpuscular Hemoglobin 34, Mean Corpuscular Hemoglobin Concent 35, Red Cell Distribution Width 19.0H, Platelet Count 98L, Mean Platelet Volume , Neutrophils (%) (Auto) 82H, Lymphocytes (%) (Auto) 10L, Monocytes (%) (Auto) 8, Eosinophils (%) (Auto) 0, Basophils (%) (Auto) 0, Neutrophils # (Auto) 4.8, Lymphocytes # (Auto) 0.6L, Monocytes # (Auto) 0.5, Eosinophils # (Auto) 0.0, Basophils # (Auto) 0.0, Sodium Level 149H, Potassium Level 1.3*L, Chloride Level 109H, Carbon Dioxide Level 24, Anion Gap 16H, Blood Urea Nitrogen 63H, Creatinine 2.43H, Estimat Glomerular Filtration Rate 26, BUN/Creatinine Ratio 26, Glucose Level 82, Calcium Level 4.5*L, Magnesium Level 1.1L 10/31/17 15:30: Sodium Level 146H, Potassium Level 1.7*L, Chloride Level 109H, Carbon Dioxide Level 24, Anion Gap 13, Blood Urea Nitrogen 62H, Creatinine 2.37H, Estimat Glomerular Filtration Rate 27, BUN/Creatinine Ratio 26, Glucose Level 156H, Calcium Level 4.8*L Microbiology 10/30/17 Blood Culture - Preliminary, Resulted No growth 10/30/17 MRSA Screen - Final, Complete MRSA not isolated Focused Exam Lactate Level 10/30/17 06:50: Lactic Acid Level 2.44*H 10/30/17 09:04: Lactic Acid Level 1.41 Clinical Quality Measures DVT/VTE Risk/Contraindication: Risk Factor Score Per Nursin RFS Level Per Nursing on Admit: 4+=Very High ANNE TALLEY MD Oct 31, 2017 16:31
[2017-10-31] MEDS ORDERED: KCL 20 MEQ POWDER FOR ORAL SOLUTION PO NR (18:30)
--- NOTE | 2017-10-31 22:22 | Progress Note (SOAP) ---
Subjective Subjective/Events-last exam No acute events overnight. Pt's electrolytes remain extremely unbalanced. His hemoglobin has risen nicely after transfusion of 2 units yesterday. Review of Systems Date Seen by Provider: Oct 31, 2017 Time Seen by Provider: 11:00 General: No Chills, No Night Sweats HEENT: No Head Aches, No Dysphasia Pulmonary: Dyspnea; No Cough Cardiovascular: Edema; No: Chest Pain, Palpitations Gastrointestinal: No: Nausea, Vomiting, Abdominal Pain Genitourinary: No Hematuria Musculoskeletal: No: neck pain, back pain Neurological: Weakness; No: Numbness, Incoordination, Change in speech, Seizures Focused Exam Lactate Level 10/30/17 06:50: Lactic Acid Level 2.44*H 10/30/17 09:04: Lactic Acid Level 1.41 Objective Exam Last Set of Vital Signs Vital Signs Date Time Temp Pulse Resp B/P (MAP) Pulse Ox O2 Delivery O2 Flow Rate FiO2 10/31/17 20:32 97.5 10/31/17 20:00 Room Air 10/31/17 19:00 72 10/31/17 18:00 14 95/65 (75) 96 10/30/17 14:13 95.00 Capillary Refill : Less Than 3 Seconds I&O Intake and Output 10/31/17 00:00 Intake Total 1887 ml Output Total 775 ml Balance 1112 ml Intake Oral 537 ml IV Total 1350 ml Output Urine Total 775 ml # Bowel Movements 2 Daily Weight Change Unsure General: Alert, Oriented X3, Cooperative, No Acute Distress HEENT: Atraumatic, EOMI, Mucous Memb Moist/[place] Neck: Supple, No Thyromegaly Lungs: Other (diminished, coarse) Heart: Regular Rate, Normal S1, Normal S2, Other (systolic murmur) Abdomen: Normal Bowel Sounds, Soft, No Tenderness Extremities: No Clubbing, No Cyanosis Skin: No Rashes, No Significant Lesion, Other (scattered bites from bed bugs) Neuro: Normal Speech, Normal Tone, Sensation Intact, Cranial Nerves 3-12 NL Psych/Mental Status: Mental Status NL, Mood NL Results/Procedures Lab Laboratory Tests 10/31/17 03:20: White Blood Count 5.8, Red Blood Count 2.63L, Hemoglobin 8.9#L, Hematocrit 25L, Mean Corpuscular Volume 96, Mean Corpuscular Hemoglobin 34, Mean Corpuscular Hemoglobin Concent 35, Red Cell Distribution Width 19.0H, Platelet Count 98L, Mean Platelet Volume , Neutrophils (%) (Auto) 82H, Lymphocytes (%) (Auto) 10L, Monocytes (%) (Auto) 8, Eosinophils (%) (Auto) 0, Basophils (%) (Auto) 0, Neutrophils # (Auto) 4.8, Lymphocytes # (Auto) 0.6L, Monocytes # (Auto) 0.5, Eosinophils # (Auto) 0.0, Basophils # (Auto) 0.0, Sodium Level 149H, Potassium Level 1.3*L, Chloride Level 109H, Carbon Dioxide Level 24, Anion Gap 16H, Blood Urea Nitrogen 63H, Creatinine 2.43H, Estimat Glomerular Filtration Rate 26, BUN/ Creatinine Ratio 26, Glucose Level 82, Calcium Level 4.5*L, Phosphorus Level 5.8H, Magnesium Level 1.1L 10/31/17 15:30: Sodium Level 146H, Potassium Level 1.7*L, Chloride Level 109H, Carbon Dioxide Level 24, Anion Gap 13, Blood Urea Nitrogen 62H, Creatinine 2.37H, Estimat Glomerular Filtration Rate 27, BUN/Creatinine Ratio 26, Glucose Level 156H, Calcium Level 4.8*L Microbiology 10/30/17 Blood Culture - Preliminary, Resulted No growth 10/30/17 MRSA Screen - Final, Complete MRSA not isolated Radiology Date of Exam: 10/31/17 CHEST 1 VIEW, AP/PA ONLY INDICATION: Anemia and renal failure and hypokalemia. Frontal chest obtained at 3:41 a.m. and compared to 10/30/2017 FINDINGS: The heart is enlarged and appears similar to the prior study. The right-sided PICC line is unchanged. There is bibasilar infiltrate which is unchanged compared to the prior study. There is a small amount of pleural fluid in the left costophrenic angle. This appears mildly decreased compared to yesterday. IMPRESSION: Cardiomegaly. Unchanged bibasilar infiltrates. Mild decrease in left pleural fluid compared to the prior study. Assessment/Plan Assessment/Plan (1) Hypokalemia Status: Acute Assessment & Plan: 10/30 -1.5 -replaced with 80 mEq 10/31 -1.3 this AM -replace with additional 80 mEq -recheck this afternoon (2) Hypomagnesemia Status: Acute Assessment & Plan: 10/30 -undetectable on admission -4 grams 10/31 -1.1 this AM -2 grams IVPB -recheck in AM (3) Hypocalcemia Status: Acute Assessment & Plan: 10/30 -4.4 on admission 10/31 -4.5 this AM -difficult to replace based on pt's other severe electrolyte abnormalities, mainly his potassium -will likely need to aggressively replace his potassium and bring it to a more normal level before attempting additional calcium replacement, as it is counterproductive to attempt replacement of both at once (4) Acute renal failure Status: Acute Assessment & Plan: 10/30 -Cr 2.54 on admission -GFR 25 -BUN 60 10/31 -Cr 2.54 --> 2.43 -GFR 25 --> 26 -BUN 60 --> 63 Qualifiers: Qualified Codes: N17.9 - Acute kidney failure, unspecified (5) Hypoalbuminemia Status: Acute Assessment & Plan: 10/30 1.8 (6) Hypotension Status: Acute Assessment & Plan: 10/30 -responded to fluid boluses 10/31 -maintaining his pressure today Qualifiers: Qualified Codes: I95.9 - Hypotension, unspecified (7) Severe anemia Status: Acute Assessment & Plan: 10/30 6.4 on admission transfused 2 units PRBC 10/31 -6.4 -->8.9 (8) Thrombocythemia Status: Chronic Assessment & Plan: Consult to Dr. Hernandez (9) History of pulmonary embolism Status: Chronic Permanent Comment: 03/2017 Last Edited By: Alisha San on Jun 22, 2017 14: 28 Assessment & Plan: 10/31 -home eliquis on hold today -will likely restart tomorrow if Hgb remains stable (10) At risk for falls Status: Chronic Assessment & Plan: 10/31 -pt's living conditions not suitable for him to return home; will need placement at discharge (11) Sigmoid stricture Status: Chronic Assessment & Plan: 10/31 -biopsied by Dr. Contreras in Nov -not a surgical candidate given his overall poor health -consider CT scan to evaluate if stricture has become obstructing (12) Chronic combined systolic and diastolic CHF (congestive heart failure) Status: Chronic Permanent Comment: Cardiac Cath 2014 with nonischemic cardiomyopathy and EF 40% Echocardiogram 01/2017 with aortic root mildly dilated, grade 1 diastolic dysfunction, EF 55-65% and hypokinesis inferior myocardium Stress test 01/2017 negative for ischemia, had predominantly fixed apical defect with mild reversability and low normal LV function Last Edited By: Alisha San on Jun 22, 2017 14:23 (13) Generalized weakness Status: Chronic (14) Sepsis Status: Acute Assessment & Plan: 10/31 -likely secondary to bilateral PNA Qualifiers: Qualified Codes: A41.9 - Sepsis, unspecified organism (15) Protein calorie malnutrition Status: Chronic Assessment & Plan: 10/30 -prealbumin 10 in Jun 26 -will recheck in AM Qualifiers: Qualified Codes: E44.0 - Moderate protein-calorie malnutrition (16) GI bleed Status: Chronic Assessment & Plan: 10/31 -heme positive stools on admission -n chi bleeding noted -CT abd/pelvis in AM Qualifiers: Qualified Codes: K92.2 - Gastrointestinal hemorrhage, unspecified (17) DVT prophylaxis Status: Acute Assessment & Plan: 10/31 -chemical prophylaxis currently on hold due to need for transfusion on admission -will likely restart in AM if Hgb remains stable (18) PNA (pneumonia) Status: Acute Assessment & Plan: 10/31 -CXR this AM reports bibasilar infiltrates -Cefepime, Vanc Qualifiers: Clinical Quality Measures DVT/VTE Risk/Contraindication: Risk Factor Score Per Nursin RFS Level Per Nursing on Admit: 4+=Very High Copy Copies To 1: [facility]/EVELYN FOY DO Oct 31, 2017 22:22
[2017-10-31] MEDS: CATHETER FLUSH 10 ML SYR IV SCH (22:34)
[2017-11-01] VITALS (22 sets, daily range): BP systolic 94–149; BP diastolic 65–107
[2017-11-01] MEDS: POTASSIUM CL 10MEQ/50ML IVPB 50 ML IV SCH ×8 (00:11→23:58)
[2017-11-01] MEDS: KCL 20 MEQ TAB (K-DUR) PO SCH (03:35)
[2017-11-01] MEDS: MAGNESIUM 1 GM/100 ML IVPB 100 ML IV SCH (03:35)
[2017-11-01 03:44] LABS: BASOPHILS % (AUTO) 0 % (0-10); EOSINOPHILS % (AUTO) 0 % (0-10); HEMATOCRIT 26 % (40-54); HEMOGLOBIN 9.2 G/DL (13.3-17.7); LYMPHOCYTES # (AUTO) 0.5 X 10^3 (1.0-4.0); LYMPHOCYTES % (AUTO) 6 % (12-44); MEAN CORPUSCULAR HEMOGLOBIN 35 PG (25-34); MEAN CORPUSCULAR HGB CONC 36 G/DL (32-36); MEAN CORPUSCULAR VOLUME 96 FL (80-99); MONOCYTES # (AUTO) 0.6 X 10^3 (0.0-1.0); MONOCYTES % (AUTO) 8 % (0-12); NEUTROPHILS # (AUTO) 7.2 X 10^3 (1.8-7.8); NEUTROPHILS % (AUTO) 87 % (42-75); PLATELET COUNT 88 10^3/uL (130-400); RED BLOOD COUNT 2.66 10^6/uL (4.35-5.85); RED CELL DISTRIBUTION WIDTH 20.4 % (10.0-14.5); WHITE BLOOD COUNT 8.3 10^3/uL (4.3-11.0)
[2017-11-01 04:00] LABS: CREATININE SERUM 2.3 MG/DL (0.60-1.30); MAGNESIUM 1.9 MG/DL (1.8-2.4); PHOSPHORUS 5.3 MG/DL (2.3-4.7)
[2017-11-01 04:02] LABS: POTASSIUM 2.2 MMOL/L (3.6-5.0)
[2017-11-01 04:13] LABS: CALCIUM 5.1 MG/DL (8.5-10.1)
[2017-11-01] MEDS ORDERED: KCL 20 MEQ POWDER FOR ORAL SOLUTION ONE (05:11)
[2017-11-01] MEDS ORDERED: CALCIUM GLUC. 10% 4.65 MEQ/10 ML VIAL ONE ×2 (05:12→05:32)
[2017-11-01] MEDS ORDERED: CALCIUM GLUCONATE 10% INJ 4.65 MEQ in NS (IVPB) 50 ML IV ONE ×2 (05:30→06:00)
[2017-11-01] MEDS ORDERED: KCL 20 MEQ POWDER FOR ORAL SOLUTION PO ONE ×2 (05:30→09:00)
[2017-11-01] MEDS ORDERED: MAGNESIUM 1 GM/100 ML IVPB 100 ML IV ONE (05:30)
[2017-11-01] MEDS ORDERED: NS (IVPB) 100 ML ONE (05:33)
[2017-11-01] MEDS: CATHETER FLUSH 10 ML SYR IV SCH ×3 (05:59→20:42)
[2017-11-01] MEDS: PANTOPRAZOLE 40 MG (PROTONIX) TAB PO SCH ×2 (06:00→08:05)
[2017-11-01 07:20] LABS: CHLORIDE URINE RANDOM 34 MMOL/L (110-250); POTASSIUM URINE RANDOM 11 MMOL/L (25-125); SODIUM URINE RANDOM 35 MMOL/L (50-200)
[2017-11-01] MEDS: ASPIRIN E.C. 81 MG (ECOTRIN) TAB PO SCH (08:05)
[2017-11-01] MEDS: IRON POLYSAC 150 MG CAP (NIFEREX) PO SCH ×2 (08:05→20:41)
--- NOTE | 2017-11-01 08:59 | Diagnostic Imaging Report ---
INDICATION: Severe anemia, hyperkalemia, renal failure.. TECHNIQUE: Single view chest 3:30 AM. CORRELATION STUDY: 10/31/2017 FINDINGS: Right-sided central line unchanged, tip over the low SVC. Bilateral pulmonary infiltrates at the lung base along with effusion overall slightly increased. Heart size is enlarged. Vascular stable. Prominent gas distention in the visualized bowel in the upper abdomen. IMPRESSION: 1. There appears to be slight progressing severity of consolidation of the lung base along with bilateral pleural effusions. Dictated by: Dictated on workstation # [id number]
[2017-11-01] MEDS ORDERED: IRON POLYSACCHARIDE COMPLEX 150 MG PO SCH (09:00)
--- NOTE | 2017-11-01 11:34 | Progress Note (SOAP) ---
Subjective Subjective/Events-last exam Pt is without complaints today. Resting in bed. Right arm noted to be red and swollen near where PICC is inserted, although no redness at actual insertion site is observed. Pt reports he isn't sure when that happened, denies pain. Nurse noted it this AM on assessment, no abnormalities of right arm previously documented or noted. Review of Systems Date Seen by Provider: Nov 01, 2017 Time Seen by Provider: 10:52 General: No Chills, No Night Sweats, No Fatigue, No Malaise, No Appetite, No Other HEENT: No Head Aches, No Visual Changes, No Dysphasia Pulmonary: Dyspnea, Cough; No Pleuritic Chest Pain Cardiovascular: Edema; No: Chest Pain, Palpitations, Orthopnea, Paroxysmal Noc. Dyspnea Gastrointestinal: Abdominal Pain, Diarrhea; No: Nausea, Vomiting, Constipation Musculoskeletal: No: neck pain, back pain Neurological: No: Numbness, Incoordination, Change in speech, Confusion, Seizures Focused Exam Lactate Level 10/30/17 06:50: Lactic Acid Level 2.44*H 10/30/17 09:04: Lactic Acid Level 1.41 Objective Exam Last Set of Vital Signs Vital Signs Date Time Temp Pulse Resp B/P (MAP) Pulse Ox O2 Delivery O2 Flow Rate FiO2 11/01/17 10:00 68 29 94/68 (77) 96 Room Air 11/01/17 08:00 97.1 10/30/17 14:13 95.00 Capillary Refill : Less Than 3 Seconds I&O Intake and Output 10/31/17 23:59 Intake Total 1830 ml Output Total 1125 ml Balance 705 ml Intake Oral 930 ml IV Total 900 ml Output Urine Total 1125 ml # Bowel Movements 1 General: Alert, Oriented X3, Cooperative, No Acute Distress HEENT: Atraumatic, EOMI, Mucous Memb Moist/[place] Neck: Supple, No Thyromegaly Lungs: Other (diminished bilaterally) Heart: Regular Rate, Normal S1, Normal S2 Abdomen: Normal Bowel Sounds, Soft, Other (mild distension and tenderness) Extremities: No Clubbing, No Cyanosis, Other (edema in bilateral lower extremities, right arm with redness and edema at elbow, extending up to the PICC insertion site) Skin: Other (scattered bites, coccyx wound covered, stage one wound on left shoulder healing well, cellulitis as noted above at right elbow) Neuro: Normal Speech, Normal Tone, Sensation Intact, Cranial Nerves 3-12 NL Psych/Mental Status: Mental Status NL, Mood NL Results/Procedures Lab Laboratory Tests 10/31/17 15:30: Sodium Level 146H, Potassium Level 1.7*L, Chloride Level 109H, Carbon Dioxide Level 24, Anion Gap 13, Blood Urea Nitrogen 62H, Creatinine 2.37H, Estimat Glomerular Filtration Rate 27, BUN/Creatinine Ratio 26, Glucose Level 156H, Calcium Level 4.8*L 11/01/17 03:30: Sodium Level 145, Potassium Level 2.2*L, Chloride Level 110H, Carbon Dioxide Level 21, Anion Gap 14, Blood Urea Nitrogen 62H, Creatinine 2.30H, Estimat Glomerular Filtration Rate 28, BUN/Creatinine Ratio 27, Glucose Level 120H, Calcium Level 5.1*L, White Blood Count 8.3, Red Blood Count 2.66L, Hemoglobin 9.2L, Hematocrit 26L, Mean Corpuscular Volume 96, Mean Corpuscular Hemoglobin 35H, Mean Corpuscular Hemoglobin Concent 36, Red Cell Distribution Width 20.4H, Platelet Count 88L, Mean Platelet Volume , Neutrophils (%) (Auto) 87H, Lymphocytes (%) (Auto) 6L, Monocytes (%) (Auto) 8, Eosinophils (%) (Auto) 0, Basophils (%) (Auto) 0, Neutrophils # (Auto) 7.2, Lymphocytes # (Auto) 0.5L, Monocytes # (Auto) 0.6, Eosinophils # (Auto) 0.0, Basophils # (Auto) 0.0, Phosphorus Level 5.3H, Magnesium Level 1.9 11/01/17 06:45: Urine Random Sodium 35L, Urine Random Potassium 11L, Urine Random Chloride 34L Microbiology 10/30/17 Blood Culture - Preliminary, Resulted No growth 10/30/17 MRSA Screen - Final, Complete MRSA not isolated Radiology Date of Exam: 10/31/17 CHEST 1 VIEW, AP/PA ONLY INDICATION: Anemia and renal failure and hypokalemia. Frontal chest obtained at 3:41 a.m. and compared to 10/30/2017 FINDINGS: The heart is enlarged and appears similar to the prior study. The right-sided PICC line is unchanged. There is bibasilar infiltrate which is unchanged compared to the prior study. There is a small amount of pleural fluid in the left costophrenic angle. This appears mildly decreased compared to yesterday. IMPRESSION: Cardiomegaly. Unchanged bibasilar infiltrates. Mild decrease in left pleural fluid compared to the prior study. Assessment/Plan Assessment/Plan (1) Hypokalemia Status: Acute Assessment & Plan: 10/30 -1.5 -replaced with 80 mEq 10/31 -1.3 this AM -replace with additional 80 mEq -recheck this afternoon 11/01 -2.2 this AM -continue replacement -consider renal tubular acidosis as potential cause; possibly secondary to autoimmune hepatitis as pt has elevated liver enzymes and no other obvious cause , but clearly is spilling potassium at the renal level; will add sodium bicarb to see if this helps to correct potassium further -recheck this afternoon and continue replacement as needed (2) Hypomagnesemia Status: Resolved Assessment & Plan: 10/30 -undetectable on admission -4 grams 10/31 -1.1 this AM -2 grams IVPB -recheck in AM 11/01 1.9 --> resolved (3) Hypocalcemia Status: Acute Assessment & Plan: 10/30 -4.4 on admission 10/31 -4.5 this AM -difficult to replace based on pt's other severe electrolyte abnormalities, mainly his potassium -will likely need to aggressively replace his potassium and bring it to a more normal level before attempting additional calcium replacement, as it is counterproductive to attempt replacement of both at once 11/01 -5.1 this AM -continue to feel that it is more imperative that pt's potassium be replaced before attempting to correct his calcium, and doing both at once is counterproductive -given 1 dose overnight by eICU -will continue to aggressively attempt to bring potassium to a more normal range , then attempt calcium correction with continued potassium replacement, as correcting one before the other seems like it may be more successful in the long run, and the previous efforts to correct both at once have led to minimal success in correction of either at this point (4) Acute renal failure Status: Acute Assessment & Plan: 10/30 -Cr 2.54 on admission -GFR 25 -BUN 60 10/31 -Cr 2.54 --> 2.43 -GFR 25 --> 26 -BUN 60 --> 63 11/01 -Cr 2.54 --> 2.43 --> 2.30 -GFR 25 --> 26 -BUN 60 --> 63 --> 63 Qualifiers: Qualified Codes: N17.9 - Acute kidney failure, unspecified (5) Hypoalbuminemia Status: Acute Assessment & Plan: 10/30 1.8 (6) Hypotension Status: Resolved Assessment & Plan: 10/30 -responded to fluid boluses 10/31 -maintaining his pressure today Qualifiers: Qualified Codes: I95.9 - Hypotension, unspecified (7) Severe anemia Status: Acute Assessment & Plan: 10/30 6.4 on admission transfused 2 units PRBC 10/31 -6.4 -->8.9 11/01 -6.4 --> 8.9 --> 9.2 -s/p 2 units PRBC on 10/30 -heme positive stool -CT abd pending -maintaining Hgb (8) Thrombocythemia Status: Chronic Assessment & Plan: Consult to Dr. Hernandez 11/01 -plan is to hold hydroxyurea for some time -will continue to attempt to correct electrolytes -Dr. Hernadnez availble if needed, will check on patient on Sunday -platelets 101 --> 98 --> 88 (9) History of pulmonary embolism Status: Chronic Permanent Comment: 03/2017 Last Edited By: Alisha San on Jun 22, 2017 14: 28 Assessment & Plan: 10/31 -home eliquis on hold today -will likely restart tomorrow if Hgb remains stable 11/01 -pt appears not to have been taking his eliquis at home -renal dosing lovenox started today (10) At risk for falls Status: Chronic Assessment & Plan: 10/31 -pt's living conditions not suitable for him to return home; will need placement at discharge 11/01 -pt spoke with social work and reported is willing to go to facility at discharge; they have begun seeking potential placement -pt reports his biggest goal is "to be clean" -expect that patient will do quite well with placement in a skilled facility where he is taken care of -family informed at admission that patient would not be able to return home, as he was not being adequately cared for, they were - for the most part - in agreement, son had some reservations because he did not think patient would be willing to go; discussed with son that patient would require placement at discharge and could not return home (11) Sigmoid stricture Status: Chronic Assessment & Plan: 10/31 -biopsied by Dr. Contreras in Nov -not a surgical candidate given his overall poor health -consider CT scan to evaluate if stricture has become obstructing 11/01 -some abd distension and discomfort, passing loose stool -CT abd/pelvis ordered for today; no contrast due to renal function (12) Chronic combined systolic and diastolic CHF (congestive heart failure) Status: Chronic Permanent Comment: Cardiac Cath 2014 with nonischemic cardiomyopathy and EF 40% Echocardiogram 01/2017 with aortic root mildly dilated, grade 1 diastolic dysfunction, EF 55-65% and hypokinesis inferior myocardium Stress test 01/2017 negative for ischemia, had predominantly fixed apical defect with mild reversability and low normal LV function Last Edited By: Alisha San on Jun 22, 2017 14:23 Assessment & Plan: 11/01 -appears stable, may consider repeat echo depending on pt's clinical course (13) Generalized weakness Status: Chronic Assessment & Plan: 11/01 -see above under "at risk for falls" (14) Sepsis Status: Acute Assessment & Plan: 10/31 -likely secondary to bilateral PNA Qualifiers: Qualified Codes: A41.9 - Sepsis, unspecified organism (15) Protein calorie malnutrition Status: Chronic Assessment & Plan: 10/30 -prealbumin 10 in Jun 26 -will recheck in AM 11/01 -prealbumin pending Qualifiers: Qualified Codes: E44.0 - Moderate protein-calorie malnutrition (16) GI bleed Status: Chronic Assessment & Plan: 10/31 -heme positive stools on admission -n chi bleeding noted -CT abd/pelvis in AM Qualifiers: Qualified Codes: K92.2 - Gastrointestinal hemorrhage, unspecified (17) DVT prophylaxis Status: Acute Assessment & Plan: 10/31 -chemical prophylaxis currently on hold due to need for transfusion on admission -will likely restart in AM if Hgb remains stable 11/01 -stable Hgb -lovenox with renal dosing (18) PNA (pneumonia) Status: Acute Assessment & Plan: 10/31 -CXR this AM reports bibasilar infiltrates -Cefepime, Vanc 11/01 -above in error -- Cefepime and Levaquin, with renal dosing -abx day 2 Qualifiers: (19) Hyperphosphatemia Status: Acute Assessment & Plan: 11/01 5.9 --> 5.8 --> 5.3 -continue to trend (20) Cellulitis of right upper extremity Status: Acute Assessment & Plan: 11/01 -right elbow with significant edema and redness that was not previously noted -near, but does not appear to include, PICC insertion site -bruising noted and PICC team reports that there was a first attempt made in right arm for PICC placement and that it could be hematoma formation from that; this is certainly a reasonable consideration, however given pt's precarious state overall, will have right PICC pulled, as risk for spread of infection is too high and bacteremia would likely cause significant deterioration, which pt would very likely not recover from -pt with multiple superficial bites from bed bug infestation, and easily could have gotten wound infection from this, as pt was brought in covered in feces and dirt -will have PICC pulled and cultured as a precaution, and placed in other arm -will continue with cefepime for now; if signs of worsening infection noted, will add vancomycin Clinical Quality Measures DVT/VTE Risk/Contraindication: Risk Factor Score Per Nursin RFS Level Per Nursing on Admit: 4+=Very High Copy Copies To 1: [facility]/EVELYN FOY DO Nov 01, 2017 11:34
[2017-11-01] MEDS: SODIUM BICARBONATE 650 MG TABLET (NON-FORMULARY) PO SCH ×4 (11:58→20:41)
[2017-11-01] MEDS: ENOXAPARIN 30 MG/0.3 ML (LOVENOX) SYR SC SCH (11:59)
[2017-11-01] MEDS: CEFEPIME INJECTION 2,000 MG in NS (IVPB) 50 ML IV SCH (11:59)
[2017-11-01 13:36] LABS: CREATININE SERUM 2.29 MG/DL (0.60-1.30); POTASSIUM 2.7 MMOL/L (3.6-5.0)
[2017-11-01 13:40] LABS: CALCIUM 5.5 MG/DL (8.5-10.1)
[2017-11-01] MEDS ORDERED: KCL 20 MEQ TAB (K-DUR) PO NR (14:00)
--- NOTE | 2017-11-01 15:39 | Diagnostic Imaging Report ---
INDICATION: PICC line placement. EXAMINATION: Single view of the chest was obtained at 3:12 p.m. COMPARISON: Correlation is made with prior study from earlier the same day. FINDINGS: The right upper extremity PICC line remains in place with tip overlying the SVC. A new left-sided PICC line has been placed. It appears to be entering the upper portion of the right atrium. This could be pulled back approximately 2 cm. No pneumothorax is seen. Bilateral infiltrates and effusions persist. IMPRESSION: Left upper extremity PICC line placement, as described. Dictated by: Dictated on workstation # [id number]
--- NOTE | 2017-11-01 16:30 | Diagnostic Imaging Report ---
INDICATION: PICC line adjustment. EXAMINATION: Single view of the chest was obtained. FINDINGS: The distal tips of both PICC catheters in the lower SVC are in good position. Bilateral infiltrates and pleural fluid unchanged. IMPRESSION: The tips of both PICC lines are in good position in lower SVC. No adverse change. Bilateral infiltrates and effusions noted. Dictated by: Dictated on workstation # [id number]
[2017-11-01] MEDS: LEVOFLOXACIN 750 MG/150 ML IV 150 ML IV SCH (17:42)
--- NOTE | 2017-11-01 19:56 | Diagnostic Imaging Report ---
INDICATION: GI bleed, known stricture, rule out obstruction, abdomen distended, no known cancer. EXAMINATION: CT abdomen and pelvis without contrast, 11/01/2017. COMPARISON: . FINDINGS: There are moderate to large bilateral pleural effusions. Bibasilar atelectasis or infiltrate is also noted. Tiny nodules in the visualized right middle lobe are also seen and too small to characterize. These could be followed as warranted. Within the abdomen, examination is very limited due to lack of contrast.. Multiple foci of air in the upper abdomen are noted, Some of which are suspicious for free air. Others are similar in appearance to previous CT imaging and could lie within small bowel loops. This is very difficult to ascertain given the lack of contrast but some foci do appear to likely represent free air and clinical exclusion of visceral rupture would be recommended. The colon is markedly distended other foci of air in the mid and lower abdomen into the pelvis could lie within bowel loops; however, it is very difficult to ascertain given the diffuse haziness in the peritoneum and lack of enteric contrast. Other foci of free air are difficult to exclude. The abdominal viscera are poorly evaluated. Spleen is not seen but wasn't visualized on previous imaging. Left kidney appears atrophied with the anterior aspect of the left kidney not seen at all compared to prior, likely Obscured by the ascites and lack of contrast. Atherosclerotic disease is noted. There is diffuse degenerative disease with postoperative changes in both hips. Hyperdense material noted in the distal esophagus likely recently swallowed material but of uncertain etiology. There are hyperdense areas in the upper abdomen consistent with likely prior surgery. IMPRESSION: 1. Ascites possible although fat stranding throughout the peritoneum is more likely. With possible tiny foci of free air in the upper abdomen difficult to ascertain, as noted above. Clinical correlation with symptoms and history recommended. If clinically warranted post-enteric contrast imaging or perhaps lateral decubitus imaging of the abdomen would provide better characterization of this finding. 2. Abdominal viscera are very limited in evaluation. 3. Other findings as above with likely anasarca, not mentioned above. 4. Bilateral pleural effusions and bibasilar dependent atelectasis. 5. Diffusely dilated loops of large bowel which could be due to an obstructive process although the very distal colon is decompressed, correlate with clinical symptoms. 6. Large amount of stool throughout the colon consistent with constipation. Findings called to Dr. Rodriguez by Dr. Reed at 11/01/2017 at 7:35 p.m. Dictated by: Dictated on workstation # [id number]
[2017-11-01 23:02] LABS: CREATININE SERUM 2.13 MG/DL (0.60-1.30); MAGNESIUM 2.1 MG/DL (1.8-2.4); POTASSIUM 2.7 MMOL/L (3.6-5.0)
[2017-11-01 23:11] LABS: CALCIUM 5.4 MG/DL (8.5-10.1)
[2017-11-01] MEDS ORDERED: CALCIUM CHLORIDE 1 GM/10 ML (IMS) SYR ONE (23:31)
[2017-11-01] MEDS ORDERED: CALCIUM CHLORIDE 1 GM/10 ML (IMS) SYR INJ ONE (23:45)
[2017-11-02] VITALS (23 sets, daily range): BP systolic 90–151; BP diastolic 54–112
[2017-11-02] MEDS: POTASSIUM CL 10MEQ/50ML IVPB 50 ML IV SCH ×10 (00:30→04:30)
[2017-11-02 04:10] LABS: BASOPHILS % (AUTO) 0 % (0-10); EOSINOPHILS % (AUTO) 0 % (0-10); HEMATOCRIT 25 % (40-54); HEMOGLOBIN 8.7 G/DL (13.3-17.7); LYMPHOCYTES # (AUTO) 0.4 X 10^3 (1.0-4.0); LYMPHOCYTES % (AUTO) 5 % (12-44); MEAN CORPUSCULAR HEMOGLOBIN 34 PG (25-34); MEAN CORPUSCULAR HGB CONC 35 G/DL (32-36); MEAN CORPUSCULAR VOLUME 98 FL (80-99); MONOCYTES # (AUTO) 0.6 X 10^3 (0.0-1.0); MONOCYTES % (AUTO) 8 % (0-12); NEUTROPHILS # (AUTO) 7.4 X 10^3 (1.8-7.8); NEUTROPHILS % (AUTO) 87 % (42-75); PLATELET COUNT 91 10^3/uL (130-400); RED BLOOD COUNT 2.55 10^6/uL (4.35-5.85); RED CELL DISTRIBUTION WIDTH 21.5 % (10.0-14.5); WHITE BLOOD COUNT 8.4 10^3/uL (4.3-11.0)
[2017-11-02 04:27] LABS: CALCIUM 6.5 MG/DL (8.5-10.1); CREATININE SERUM 2.05 MG/DL (0.60-1.30); PHOSPHORUS 4.4 MG/DL (2.3-4.7); POTASSIUM 3.6 MMOL/L (3.6-5.0)
[2017-11-02] MEDS: MAGNESIUM 1 GM/100 ML IVPB 100 ML IV SCH (04:31)
[2017-11-02] MEDS: KCL 20 MEQ TAB (K-DUR) PO SCH (04:31)
[2017-11-02] MEDS: CATHETER FLUSH 10 ML SYR IV SCH ×3 (06:29→21:10)
[2017-11-02] MEDS: PANTOPRAZOLE 40 MG (PROTONIX) TAB PO SCH ×2 (06:29→08:20)
--- NOTE | 2017-11-02 07:10 | Progress Note (SOAP) ---
Subjective Subjective/Events-last exam No complaints today. Reports he is doing pretty well. Had 2 large stools last night. Mild abdominal tenderness with palpation, but eating well. Denies chest pain or shortness of breath. No acute events overnight. Review of Systems Date Seen by Provider: Nov 02, 2017 Time Seen by Provider: 10:36 General: No Chills, No Night Sweats, No Fatigue, No Malaise, No Appetite, No Other HEENT: No Head Aches, No Visual Changes, No Eye Pain, No Ear Pain, No Dysphasia , No Sinus Congestion, No Post Nasal Drip, No Sore Throat, No Other Pulmonary: No Dyspnea, No Cough, No Pleuritic Chest Pain, No Other Cardiovascular: Edema; No: Chest Pain, Palpitations, Orthopnea, Paroxysmal Noc. Dyspnea, Lt Headedness, Other Gastrointestinal: Abdominal Pain, Diarrhea Musculoskeletal: No: other, neck pain, shoulder pain, arm pain, back pain, hand pain, leg pain, foot pain Neurological: No: Weakness, Numbness, Incoordination, Change in speech, Confusion, Seizures, Other Focused Exam Lactate Level 10/30/17 09:04: Lactic Acid Level 1.41 11/01/17 22:30: Lactic Acid Level 1.39 Objective Exam Last Set of Vital Signs Vital Signs Date Time Temp Pulse Resp B/P (MAP) Pulse Ox O2 Delivery O2 Flow Rate FiO2 11/02/17 06:00 80 13 110/82 (91) 98 Room Air 11/01/17 19:39 98.0 10/30/17 14:13 95.00 Capillary Refill : Less Than 3 Seconds I&O Intake and Output 11/02/17 00:00 Intake Total 2130 ml Output Total 1150 ml Balance 980 ml Intake Oral 1400 ml IV Total 730 ml Output Urine Total 1150 ml General: Alert, Oriented X3, Cooperative, No Acute Distress HEENT: Atraumatic, EOMI, Mucous Memb Moist/[place] Neck: Supple, No Thyromegaly Lungs: Other (diminished) Heart: Normal S1, Normal S2, Other (irregularly irregular) Abdomen: Normal Bowel Sounds, Soft, Other (distended with mild tenderness on palpation) Extremities: No Clubbing, No Cyanosis Skin: Other (bruising and edema at left elbow, hematoma vs cellulitis; wounds as previously documented covered with mepilex) Neuro: Normal Speech, Normal Tone, Sensation Intact, Cranial Nerves 3-12 NL Psych/Mental Status: Mental Status NL, Mood NL Results/Procedures Lab Laboratory Tests 11/01/17 13:07: Sodium Level 147H, Potassium Level 2.7L, Chloride Level 113H, Carbon Dioxide Level 25, Anion Gap 9, Blood Urea Nitrogen 60H, Creatinine 2.29H, Estimat Glomerular Filtration Rate 28, BUN/Creatinine Ratio 26, Glucose Level 125H, Calcium Level 5.5*L, Magnesium Level 2.0 11/01/17 22:30: Sodium Level 146H, Potassium Level 2.7L, Chloride Level 113H, Carbon Dioxide Level 21, Anion Gap 12, Blood Urea Nitrogen 62H, Creatinine 2.13H, Estimat Glomerular Filtration Rate 31, BUN/Creatinine Ratio 29, Glucose Level 106H, Calcium Level 5.4*L, Magnesium Level 2.1, Lactic Acid Level 1.39 11/02/17 03:50: Sodium Level 146H, Potassium Level 3.6, Chloride Level 114H, Carbon Dioxide Level 21, Anion Gap 11, Blood Urea Nitrogen 60H, Creatinine 2.05H, Estimat Glomerular Filtration Rate 32, BUN/Creatinine Ratio 29, Glucose Level 88, Calcium Level 6.5L, Magnesium Level 2.0, White Blood Count 8.4, Red Blood Count 2.55L, Hemoglobin 8.7L, Hematocrit 25L, Mean Corpuscular Volume 98, Mean Corpuscular Hemoglobin 34, Mean Corpuscular Hemoglobin Concent 35, Red Cell Distribution Width 21.5H, Platelet Count 91L, Mean Platelet Volume , Neutrophils (%) (Auto) 87H, Lymphocytes (%) (Auto) 5L, Monocytes (%) (Auto) 8, Eosinophils (%) (Auto) 0, Basophils (%) (Auto) 0, Neutrophils # (Auto) 7.4, Lymphocytes # (Auto) 0.4L, Monocytes # (Auto) 0.6, Eosinophils # (Auto) 0.0, Basophils # (Auto) 0.0, Phosphorus Level 4.4 Microbiology 10/30/17 Blood Culture - Preliminary, Resulted No growth 10/30/17 MRSA Screen - Final, Complete MRSA not isolated Radiology Date of Exam: 10/31/17 CHEST 1 VIEW, AP/PA ONLY INDICATION: Anemia and renal failure and hypokalemia. Frontal chest obtained at 3:41 a.m. and compared to 10/30/2017 FINDINGS: The heart is enlarged and appears similar to the prior study. The right-sided PICC line is unchanged. There is bibasilar infiltrate which is unchanged compared to the prior study. There is a small amount of pleural fluid in the left costophrenic angle. This appears mildly decreased compared to yesterday. IMPRESSION: Cardiomegaly. Unchanged bibasilar infiltrates. Mild decrease in left pleural fluid compared to the prior study. Assessment/Plan Assessment/Plan (1) Hypokalemia Status: Resolved Assessment & Plan: 10/30 -1.5 -replaced with 80 mEq 10/31 -1.3 this AM -replace with additional 80 mEq -recheck this afternoon 11/01 -2.2 this AM -continue replacement -consider renal tubular acidosis as potential cause; possibly secondary to autoimmune hepatitis as pt has elevated liver enzymes and no other obvious cause , but clearly is spilling potassium at the renal level; will add sodium bicarb to see if this helps to correct potassium further -recheck this afternoon and continue replacement as needed 11/02 3.6 -- RESOLVED -will continue to need daily supplementation, and additional replacement if calcium is going to be administered (2) Hypomagnesemia Status: Resolved Assessment & Plan: 10/30 -undetectable on admission -4 grams 10/31 -1.1 this AM -2 grams IVPB -recheck in AM 11/01 1.9 --> resolved 11/02 2.0, remains WNL (3) Hypocalcemia Status: Acute Assessment & Plan: 10/30 -4.4 on admission 10/31 -4.5 this AM -difficult to replace based on pt's other severe electrolyte abnormalities, mainly his potassium -will likely need to aggressively replace his potassium and bring it to a more normal level before attempting additional calcium replacement, as it is counterproductive to attempt replacement of both at once 11/01 -5.1 this AM -continue to feel that it is more imperative that pt's potassium be replaced before attempting to correct his calcium, and doing both at once is counterproductive -given 1 dose overnight by eICU -will continue to aggressively attempt to bring potassium to a more normal range , then attempt calcium correction with continued potassium replacement, as correcting one before the other seems like it may be more successful in the long run, and the previous efforts to correct both at once have led to minimal success in correction of either at this point 11/02 -improved, now 6.5 -now that potassium has normalized, calcium can be corrected more easily, but additional potassium will be needed if calcium is supplemented to keep him in normal range (4) Acute renal failure Status: Acute Assessment & Plan: 10/30 -Cr 2.54 on admission -GFR 25 -BUN 60 10/31 -Cr 2.54 --> 2.43 -GFR 25 --> 26 -BUN 60 --> 63 11/01 -Cr 2.54 --> 2.43 --> 2.30 -GFR 25 --> 26 -BUN 60 --> 63 --> 63 11/02 -improving slowly -Cr 2.54 --> 2.43 --> 2.30 --> 2.05 Qualifiers: Qualified Codes: N17.9 - Acute kidney failure, unspecified (5) Hypoalbuminemia Status: Acute Assessment & Plan: 10/30 1.8 11/02 -will replace q8h x24 hours (6) Hypotension Status: Resolved Assessment & Plan: 10/30 -responded to fluid boluses 10/31 -maintaining his pressure today Qualifiers: Qualified Codes: I95.9 - Hypotension, unspecified (7) Severe anemia Status: Acute Assessment & Plan: 10/30 6.4 on admission transfused 2 units PRBC 10/31 -6.4 -->8.9 11/01 -6.4 --> 8.9 --> 9.2 -s/p 2 units PRBC on 10/30 -heme positive stool -CT abd pending -maintaining Hgb 11/02 -6.4 --> 8.9 --> 9.2 --> 8.7 -s/p 2 units PRBC on 10/30 (8) Thrombocythemia Status: Chronic Assessment & Plan: Consult to Dr. Hernandez 11/01 -plan is to hold hydroxyurea for some time -will continue to attempt to correct electrolytes -Dr. Hernandez availble if needed, will check on patient on Sunday -platelets 101 --> 98 --> 88 11/02 -platelets 101 --> 98 --> 88 --> 91 (9) History of pulmonary embolism Status: Chronic Permanent Comment: 03/2017 Last Edited By: Alisha San on Jun 22, 2017 14: 28 Assessment & Plan: 10/31 -home eliquis on hold today -will likely restart tomorrow if Hgb remains stable 11/01 -pt appears not to have been taking his eliquis at home -renal dosing lovenox started today (10) At risk for falls Status: Chronic Assessment & Plan: 10/31 -pt's living conditions not suitable for him to return home; will need placement at discharge 11/01 -pt spoke with social work and reported is willing to go to facility at discharge; they have begun seeking potential placement -pt reports his biggest goal is "to be clean" -expect that patient will do quite well with placement in a skilled facility where he is taken care of -family informed at admission that patient would not be able to return home, as he was not being adequately cared for, they were - for the most part - in agreement, son had some reservations because he did not think patient would be willing to go; discussed with son that patient would require placement at discharge and could not return home 11/02 -PT to eval and treat (11) Sigmoid stricture Status: Chronic Assessment & Plan: 10/31 -biopsied by Dr. Contreras in Nov -not a surgical candidate given his overall poor health -consider CT scan to evaluate if stricture has become obstructing 11/01 -some abd distension and discomfort, passing loose stool -CT abd/pelvis ordered for today; no contrast due to renal function 11/02 -abnormal CT abd/pelvis although difficulty defining many structures due to lack of contrast -consult to Dr. Contreras, who has seen pt in the past for this -if CT with contrast needed for further evaluation, will buffer renal function with steroids, fluid and sodium bicarb (12) Chronic combined systolic and diastolic CHF (congestive heart failure) Status: Chronic Permanent Comment: Cardiac Cath 2014 with nonischemic cardiomyopathy and EF 40% Echocardiogram 01/2017 with aortic root mildly dilated, grade 1 diastolic dysfunction, EF 55-65% and hypokinesis inferior myocardium Stress test 01/2017 negative for ischemia, had predominantly fixed apical defect with mild reversability and low normal LV function Last Edited By: Alisha San on Jun 22, 2017 14:23 Assessment & Plan: 11/01 -appears stable, may consider repeat echo depending on pt's clinical course (13) Generalized weakness Status: Chronic Assessment & Plan: 11/01 -see above under "at risk for falls (14) Sepsis Status: Acute Assessment & Plan: 10/31 -likely secondary to bilateral PNA Qualifiers: Qualified Codes: A41.9 - Sepsis, unspecified organism (15) Protein calorie malnutrition Status: Chronic Assessment & Plan: 10/30 -prealbumin 10 in Feb 10/31 -will recheck in AM 11/01 -prealbumin pending 11/02 prealbumin now 7.5; consider TPN for additional nutrition Qualifiers: Qualified Codes: E44.0 - Moderate protein-calorie malnutrition (16) GI bleed Status: Chronic Assessment & Plan: 10/31 -heme positive stools on admission -n chi bleeding noted -CT abd/pelvis in AM 11/02 -abnormal CT, consult to Dr. Contreras Qualifiers: Qualified Codes: K92.2 - Gastrointestinal hemorrhage, unspecified (17) DVT prophylaxis Status: Acute Assessment & Plan: 10/31 -chemical prophylaxis currently on hold due to need for transfusion on admission -will likely restart in AM if Hgb remains stable 11/01 -stable Hgb -lovenox with renal dosing (18) PNA (pneumonia) Status: Acute Assessment & Plan: 10/31 -CXR this AM reports bibasilar infiltrates -Cefepime, Vanc 11/01 -above in error -- Cefepime and Levaquin, with renal dosing -abx day 2 11/02 -Cefepime and Levaquin day 3 -bilateral pleural effusions per CT Qualifiers: (19) Hyperphosphatemia Status: Resolved Assessment & Plan: 11/01 5.9 --> 5.8 --> 5.3 -continue to trend 11/02 4.4 today - RESOLVED (20) Cellulitis of right upper extremity Status: Acute Assessment & Plan: 11/01 -right elbow with significant edema and redness that was not previously noted -near, but does not appear to include, PICC insertion site -bruising noted and PICC team reports that there was a first attempt made in right arm for PICC placement and that it could be hematoma formation from that; this is certainly a reasonable consideration, however given pt's precarious state overall, will have right PICC pulled, as risk for spread of infection is too high and bacteremia would likely cause significant deterioration, which pt would very likely not recover from -pt with multiple superficial bites from bed bug infestation, and easily could have gotten wound infection from this, as pt was brought in covered in feces and dirt -will have PICC pulled and cultured as a precaution, and placed in other arm -will continue with cefepime for now; if signs of worsening infection noted, will add vancomycin 11/02 -no change in abx for now, pt maintaining on current regimen and no spreading of cellulitis noted; more bruising, favoring possible hematoma from original PICC attempt (21) Bilateral pleural effusion Status: Acute Assessment & Plan: 11/02 -noted on CT done yesterday evening -pt stable on room air -Dr. Contreras consulted, will get his opinion on drainage vs diuretic management. Clinical Quality Measures DVT/VTE Risk/Contraindication: Risk Factor Score Per Nursin RFS Level Per Nursing on Admit: 4+=Very High Copy Copies To 1: [facility]/EVELYN FOY DO Nov 02, 2017 07:10
[2017-11-02] MEDS: SODIUM BICARBONATE 650 MG TABLET (NON-FORMULARY) PO SCH ×4 (08:20→21:10)
[2017-11-02] MEDS: ASPIRIN E.C. 81 MG (ECOTRIN) TAB PO SCH (08:20)
[2017-11-02] MEDS: IRON POLYSAC 150 MG CAP (NIFEREX) PO SCH ×2 (08:20→21:10)
--- NOTE | 2017-11-02 08:21 | Diagnostic Imaging Report ---
INDICATION: Hypokalemia, renal failure. Portable chest 3:48 AM FINDINGS: Left upper extremity PICC line tip projects over the SVC. There is some infiltrate or atelectasis at both lung bases with small effusions. IMPRESSION: Basilar consolidations and effusions appear unchanged from the previous day. Dictated by: Dictated on workstation # [id number]
[2017-11-02] MEDS ORDERED: TPN IV SCH (11:15)
--- NOTE | 2017-11-02 13:05 | Physical Therapy Evaluation ---
PT Evaluation-General Medical Diagnosis Admission Date Oct 30, 2017 at 08:18 Medical Diagnosis: hypokalemia, severe anemia and acute renal failure Onset Date: Oct 30, 2017 Therapy Diagnosis Therapy Diagnosis: impaired mobility, strength, endurance Height/Weight Height (Feet): 5 Height (Inches): 6.00 Weight (Pounds): 155 Weight (Ounces): 0.0 Precautions Precautions/Isolations: Contact Isolation, Fall Prevention Referral Physician: Nadia Rodriguez DO Reason for Referral: Evaluation/Treatment Medical History Pertinent Medical History: Arthritis, CAD, Diverticulitis, GERD, Heart Failure , HTN, PVD, Renal Insufficiency Additional Medical History Past Medical History PMHx: HTN Chronic non-ischemic systolic heart failure GERD Thrombocythemia Anemia Intermittent renal insufficiency BPH Posterior tibial vein thrombosis Pernicious anemia/B12 deficiency Rodrigues's esophagus Pulmonary embolism Sigmoid lesion nearly obstructive, biopsied 03/2017 PSurgHx: Right hip replacement Gastrectomy Splenectomy Appendectomy Multiple EGD/colonoscopies Sigmoid lesion biopsy Current History went to ER via EMS after having difficulty ambulating at home Social History Home: Single Level Current Living Status: Entry Into Home: Stairs Without Railing PT Steps Into Home: 2 patient lives with his son and grandson Prior/Core FIM Prior Level of Function Functional [place] Measure 0=Not Assessed/NA 4=Minimal Assistance 1=Total Assistance 5=Supervision or Setup 2=Maximal Assistance 6=Modified [place] 3=Moderate Assistance 7=Complete [place] Bed Mobility: 6 Transfers (B,C,W/C) (FIM): 6 Gait: 6 PT Evaluation-Current Subjective Patient in bed pre tx, agrees to PT, no complaints of pain. Pt/Family Goals "to get stronger and be able to walk better" Objective Patient Orientation: Person, Place, Situation Attachments: Cheng Catheter, IV ROM/Strength ROM Lower Extremities WNL Strength Lower Extremities 3/5 gross bilateral lower extremities Integumentary/Posture Integumentary Patient has swelling/edema in both upper and lower extremities. Neuromuscular (Tone, Coordination, Reflexes) NT Sensory Vision: Functional Hearing: Functional Sensation Right Lower Extremit: Impaired Sensation Left Lower Extremity: Impaired Sensation Lower Extremities Patient has decreased light touch sensation in toes both sides. Transfers Functional [place] Measure 0=Not Assessed/NA 4=Minimal Assistance 1=Total Assistance 5=Supervision or Setup 2=Maximal Assistance 6=Modified [place] 3=Moderate Assistance 7=Complete [place] Transfers (B, C, W/C) (FIM): 2 Scootin Rollin Supine to/from Sit: 2 Sit to/from Stand: 3 bed t/f WC(FIM only if WC use): 3 Patient needs max assist for bed mobility and supine to sit. Mod assist for sit to stand and stand pivot . Patient was able to take a few steps over to chair. Gait Mode of Locomotion: Walk Anticipated Mode of Locomotion: Walk Gait (FIM): 1 Distance: 3' Gait Level of Assist: 3 Gait Persons Needed: 1 Gait Assistive Device: Handheld Assist Balance Sitting Static: Fair Sitting Dynamic: Fair Standing Static: Poor Standing Dynamic: Poor Treatment seated exercises x15 (AP, LAQ) Assessment/Needs Patient has impaired mobility, strength, endurance. He was able to take a few steps to a chair with CAN [employer]PER. Rehab Potential: Fair PT Short Term Goals Short Term Goals Time Frame: Nov 09, 2017 Transfers (B,C,W/C) (FIM): 4 Gait (FIM): 1 Gait Distance Comment: 20' Gait Level of Assist: 4 Gait Assistive Device: FWW PT Plan Problem List Problem List: Activity Tolerance, Functional Strength, Safety, Balance, Gait, Transfer, Bed Mobility Treatment/Plan Treatment Plan: Continue Plan of Care Treatment Plan: Bed Mobility, Education, Functional Activity Perri, Functional Strength, Gait, Safety, Therapeutic Exercise, Transfers Treatment Duration: Nov 09, 2017 Frequency: 6 times per week Estimated Hrs Per Day: .25 hour per day (15-30') Patient and/or Family Agrees t: Yes Safety Risks/Education Patient Education: Gait Training, Transfer Techniques, Correct Positioning, Safety Issues Teaching Recipient: Patient Teaching Methods: Demonstration, Discussion Response to Teaching: Reinforcement Needed Discharge Recommendations Plan Patient will perform bed mobility and transfer training, balance and endurance training, functional strengthening, gait training, and education, to improve functional mobility and independence at home. Therapy D/C Recommendations: Home w/ Family Support, Fdc (TCU/NH) Time/GCodes Time In: 1140 Time Out: 1157 Total Billed Treatment Time: 17 Total Billed Treatment 1 visit MARCELINO 17' ALISON LAUREANO PT Nov 02, 2017 13:05
[2017-11-02] MEDS: ENOXAPARIN 30 MG/0.3 ML (LOVENOX) SYR SC SCH (13:39)
[2017-11-02] MEDS: CEFEPIME INJECTION 2,000 MG in NS (IVPB) 50 ML IV SCH (13:40)
[2017-11-02] MEDS: ALBUMIN 25% 25 GM/100 ML 100 ML IV SCH ×2 (13:51→21:10)
--- NOTE | 2017-11-02 15:49 | CONSULTATION REPORT ---
DATE OF SERVICE: 11/02/2017 ATTENDING ASTRONOMY DEPARTMENT CHAIR: [facility]. HISTORY OF PRESENT ILLNESS: The patient is a 72-year-old male known to us. He has had episodes of abdominal distention as well as intermittent episodes of left lower quadrant abdominal pain. He did undergo colonoscopy by us and was found to have diverticulosis. He had another colonoscopy done by another surgeon where a polyp was identified, biopsied and found to be benign. He was admitted for diverticulitis in 03/2017 as well as partial colonic obstruction. A CT scan was performed which did show similar findings. He also had developed abdominal distention as well as nausea and vomiting and dehydration. He was medically managed at that time. He did undergo an EGD and a sigmoidoscopy on that admission. The EGD showed a reflux esophagitis class C, esophageal candidiasis and small hiatal hernia 1.5 cm in size. There was an intact gastric pouch and a widely patent what appeared to be Billroth II gastrojejunal anastomosis. Colonoscopy showed chronic stage I external and internal hemorrhoids and there was a near obstructing lesion at the rectosigmoid junction which may have indicated a chronic diverticular stricture versus a neoplastic process. Multiple biopsies were taken which were benign. We continued conservative management as well as TPN. While in the hospital, he did develop shortness of breath and was found to have bilateral small pulmonary emboli. He was treated with Lovenox. Due to his recent pulmonary embolism as well as anticoagulation, we decided to proceed with conservative therapy for now and await approximately 3 months for reevaluation and then elective colonic sigmoid resection. He presented again with feelings of fatigue and abdominal distention. CT scan again showed dilatation of the colon as well as an area of stricture of the sigmoid colon. He was admitted, started on IV fluids and antibiotics as well as treated for his other medical problems. Since being admitted, he has felt better and has had multiple loose bowel movements and was started on a diet, which he is tolerating without any difficulty. In lieu of his previous history and the progression of this strictured portion of the colon, he will need exploration and removal of the segment and either reanastomosis versus a colostomy versus a decompressive loop colostomy depending on what his medical condition will permit. PAST MEDICAL HISTORY: Coronary artery disease, CHF, peripheral vascular disease, history of DVT, hypercholesterolemia, hypertension, renal insufficiency, history of peptic ulcer disease, history of gastroesophageal reflux disease and Rodrigues's esophagus, history of diverticulosis and diverticulitis, history of pulmonary embolism in 03/2017. PAST SURGICAL HISTORY: Exploratory laparotomy, gastrectomy, Billroth II reconstruction, cardiac catheterization. ALLERGIES: No known drug allergies. MEDICATIONS: Anagrelide 0.5 mg b.i.d., aspirin 81 mg daily, folic acid 1 mg daily, furosemide 20 mg daily, hydroxyurea 500 mg daily, iron 150 mg b.i.d., lisinopril 10 mg daily, metoprolol 25 mg daily, Protonix 40 mg daily, potassium 10 mEq daily. SOCIAL HISTORY: Negative smoke, negative alcohol. FAMILY HISTORY: Noncontributory. REVIEW OF SYSTEMS: This is a thin-appearing male who is awake and alert and answers all questions appropriately. He is not experiencing any shortness of breath or difficulty breathing. He is tolerating diet; however, does have abdominal distention; however, states that his abdomen is mostly all the time distended. He does not have any abdominal pain. No nausea, vomiting with multiple episodes of diarrhea since admission. No red blood or coffee or dark liquid stools. No fever, chills with continued weight loss that has been occurring now for the past year. All other review of systems negative. PHYSICAL EXAMINATION: VITAL SIGNS: Temperature 97.7, blood pressure 112/81, pulse 76, respirations 20, pulse ox 96% on room air. CHEST: A few scattered rales and rhonchi bilaterally. HEART: Regular, no murmurs. EXTREMITIES: No lower extremity edema, negative Homans sign. He does have a slight upper extremity swelling. HEENT: No scleral icterus. NECK: No cervical lymphadenopathy. ABDOMEN: Distended; however, soft and no abdominal pain or peritoneal signs. SKIN: Warm, dry. LABORATORY DATA: WBC 8.4, hemoglobin 8.7, hematocrit 25, platelets 91. BUN 60, creatinine 2.05. ASSESSMENT AND PLAN: A 72-year-old male with near obstructing diverticular stricture. We have tried conservative management and he does have multiple medical comorbidities as well as history of a deep venous thrombosis as well as pulmonary embolism. He also does have a history of coronary artery disease as well as other pulmonary problems and renal insufficiency. He is a high risk for surgery; however, due to his current status and a potential for large bowel obstruction, he will need a surgery, which may encompass resection and anastomosis if feasible in a timely manner versus a resection and colostomy versus a decompressive loop colostomy which will all depend on this overall medical condition and the duration of the procedure that his body can tolerate. We will try to bolster his nutritional status with p.o. intake as well as TPN and proceed with the surgery after proper clearances early next week. Job ID: [id number] DocumentID: [id number] Dictated Date: 11/02/2017 14:34:54 [employer] Date: 11/02/2017 15:15:18 Dictated By: MIKE OTOOLE MD MTDD
[2017-11-02] MEDS: POTASSIUM CHLORIDE IV SCH ×9 (17:10)
[2017-11-02] MEDS: [UNRECOGNIZED DRUG - OTHER] IV SCH ×9 (17:10)
[2017-11-02] MEDS: SODIUM ACETATE IV SCH ×9 (17:10)
[2017-11-03] VITALS (24 sets, daily range): BP systolic 103–138; BP diastolic 46–99
[2017-11-03 03:56] LABS: BASOPHILS % (AUTO) 0 % (0-10); EOSINOPHILS % (AUTO) 0 % (0-10); HEMATOCRIT 22 % (40-54); HEMOGLOBIN 7.4 G/DL (13.3-17.7); LYMPHOCYTES # (AUTO) 0.7 X 10^3 (1.0-4.0); LYMPHOCYTES % (AUTO) 9 % (12-44); MEAN CORPUSCULAR HEMOGLOBIN 35 PG (25-34); MEAN CORPUSCULAR HGB CONC 34 G/DL (32-36); MEAN CORPUSCULAR VOLUME 101 FL (80-99); MONOCYTES # (AUTO) 0.7 X 10^3 (0.0-1.0); MONOCYTES % (AUTO) 9 % (0-12); NEUTROPHILS # (AUTO) 6.3 X 10^3 (1.8-7.8); NEUTROPHILS % (AUTO) 82 % (42-75); PLATELET COUNT 87 10^3/uL (130-400); RED BLOOD COUNT 2.13 10^6/uL (4.35-5.85); RED CELL DISTRIBUTION WIDTH 20.9 % (10.0-14.5); WHITE BLOOD COUNT 7.7 10^3/uL (4.3-11.0)
[2017-11-03 04:17] LABS: ALBUMIN 2.2 GM/DL (3.2-4.5); BILIRUBIN,TOTAL 1.4 MG/DL (0.1-1.0); CALCIUM 6.9 MG/DL (8.5-10.1); CREATININE SERUM 1.81 MG/DL (0.60-1.30); PHOSPHORUS 4.1 MG/DL (2.3-4.7); POTASSIUM 2.6 MMOL/L (3.6-5.0); TOTAL PROTEIN 4.5 GM/DL (6.4-8.2)
[2017-11-03] MEDS: ZINC OXIDE 16% OINT (BUTT PASTE) 113 GM TUBE TOP PRN (04:37)
[2017-11-03] MEDS: KCL 20 MEQ TAB (K-DUR) PO SCH (05:07)
[2017-11-03] MEDS: MAGNESIUM 1 GM/100 ML IVPB 100 ML IV SCH (05:07)
[2017-11-03] MEDS: POTASSIUM CL 10MEQ/50ML IVPB 50 ML IV SCH ×7 (05:08→16:58)
[2017-11-03] MEDS: ALBUMIN 25% 25 GM/100 ML 100 ML IV SCH (05:19)
[2017-11-03] MEDS: CATHETER FLUSH 10 ML SYR IV SCH ×3 (05:19→20:00)
[2017-11-03] MEDS: PANTOPRAZOLE 40 MG (PROTONIX) TAB PO SCH ×2 (05:21→10:48)
--- NOTE | 2017-11-03 08:14 | Diagnostic Imaging Report ---
Indication: Dyspnea, acute renal failure, severe anemia, hypokalemia. Discussion: Single portable upright view of the chest was obtained, comparison 11/02/2017. Small to moderate bilateral pleural effusions are stable. Bibasilar opacities are unchanged, atelectasis and/or pneumonia. Left upper extremity PICC line is stable. Stable mild cardiomegaly. Prominent gas filled colonic bowel loops are incompletely viewed. Impression: 1. Stable bilateral pleural effusions and associated opacities. Dictated by: Dictated on workstation # [id number]
--- NOTE | 2017-11-03 09:48 | Progress Note (SOAP) ---
Subjective Date Seen by Provider: Nov 03, 2017 Time Seen by Provider: 09:25 Subjective/Events-last exam Hypokalemia continues with a potassium level of 2.6. Hemoglobin decreased to 7.7, blood transfusion anticipated. Pulmonary infiltrates improving. On IV antibiotics Review of Systems General: No Chills, No Night Sweats, No Fatigue, No Malaise HEENT: No Head Aches, No Eye Pain, No Ear Pain, No Dysphasia, No Sinus Congestion, No Post Nasal Drip, No Sore Throat Pulmonary: Cough Cardiovascular: No: Chest Pain, Palpitations, Orthopnea, Paroxysmal Noc. Dyspnea, Edema, Lt Headedness Gastrointestinal: Diarrhea, Other Genitourinary: No Dysuria, No Frequency, No Incontinence, No Hematuria, No Retention Musculoskeletal: back pain Neurological: Weakness Focused Exam Lactate Level 11/01/17 22:30: Lactic Acid Level 1.39 Objective Exam Vital Signs Date Time Temp Pulse Resp B/P (MAP) Pulse Ox O2 Delivery O2 Flow Rate FiO2 11/03/17 08:00 97.2 11/03/17 06:00 90 9 119/85 (96) 97 Room Air 11/03/17 05:00 91 22 116/81 (93) 86 Room Air 11/03/17 04:15 98.1 11/03/17 04:00 69 12 126/90 (102) 92 Room Air 11/03/17 04:00 Room Air 11/03/17 03:00 92 13 122/83 (96) 92 Room Air 11/03/17 02:00 97 22 117/80 (92) 94 Room Air 11/03/17 01:00 90 11 121/73 (89) 93 Room Air 11/03/17 01:00 90 11/03/17 00:00 88 10 118/84 (95) 98 Room Air 11/03/17 00:00 Room Air 11/02/17 23:45 98.0 11/02/17 23:00 85 10 122/82 (95) 93 Room Air 11/02/17 22:00 99 18 111/84 (93) 98 Room Air 11/02/17 21:00 87 10 112/74 (87) 95 Room Air 11/02/17 20:00 94 13 121/81 (94) 92 Room Air 11/02/17 20:00 97.6 6/15/18 20:00 Room Air 11/02/17 19:00 91 11/02/17 19:00 94 17 120/85 (97) 95 Room Air 11/02/17 18:00 76 12 115/96 (102) 95 Room Air 11/02/17 17:00 75 10 115/91 (99) 96 Room Air 11/02/17 16:00 98.1 11/02/17 16:00 99 19 124/85 (98) 96 Room Air 11/02/17 16:00 Room Air 11/02/17 15:00 80 10 103/86 (92) 95 Room Air 11/02/17 14:00 81 18 107/79 (88) 95 Room Air 11/02/17 13:00 83 11/02/17 13:00 82 13 90/68 (75) 96 Room Air 11/02/17 12:00 98.0 11/02/17 12:00 79 36 95/80 (85) 96 Room Air 11/02/17 12:00 Room Air 11/02/17 11:00 71 11 98/77 (84) 96 Room Air 11/02/17 10:00 76 20 96 Room Air I & O 11/03/17 07:00 Intake Total 1980 ml Output Total 2500 ml Balance -520 ml Capillary Refill : Less Than 3 Seconds General Appearance: Chronically ill Neck: Normal Inspection Respiratory: Decreased Breath Sounds Cardiovascular: Regular Rate, Rhythm Gastrointestinal: soft, distended, other Neurologic/Psychiatric: Alert, Oriented x3 Skin: Pallor Other comments Conjunctiva pale consistent with decreased hemoglobin. Abdomen distended but soft. Upper midline scar resulting from gastric surgery for complicated peptic ulcer disease. Results Lab Laboratory Tests 11/02/17 13:17: Prealbumin 7.3L 11/02/17 15:16: Glucometer 131H 11/02/17 23:42: Glucometer 164H 11/03/17 03:30: White Blood Count 7.7, Red Blood Count 2.13L, Hemoglobin 7.4L, Hematocrit 22L, Mean Corpuscular Volume 101H, Mean Corpuscular Hemoglobin 35H, Mean Corpuscular Hemoglobin Concent 34, Red Cell Distribution Width 20.9H, Platelet Count 87L, Mean Platelet Volume , Neutrophils (%) (Auto) 82H, Lymphocytes (%) (Auto) 9L, Monocytes (%) (Auto) 9, Eosinophils (%) (Auto) 0, Basophils (%) (Auto) 0, Neutrophils # (Auto) 6.3, Lymphocytes # (Auto) 0.7L, Monocytes # (Auto) 0.7, Eosinophils # (Auto) 0.0, Basophils # (Auto) 0.0, Sodium Level 149H, Potassium Level 2.6L, Chloride Level 117H, Carbon Dioxide Level 21, Anion Gap 11, Blood Urea Nitrogen 56H, Creatinine 1.81H, Estimat Glomerular Filtration Rate 37, BUN/ Creatinine Ratio 31, Glucose Level 140H, Calcium Level 6.9L, Phosphorus Level 4.1, Magnesium Level 2.0, Total Bilirubin 1.4H, Aspartate Amino Transf (AST/SGOT ) 22, Alanine Aminotransferase (ALT/SGPT) 27, Alkaline Phosphatase 95, Total Protein 4.5L, Albumin 2.2L Microbiology 11/01/17 Blood Culture - Preliminary, Resulted No growth 11/02/17 C. difficile GDH Antigen & Toxins - Final, Complete 10/30/17 MRSA Screen - Final, Complete MRSA not isolated Assessment/Plan Assessment/Plan Assess & Plan/Chief Complaint Gentleman with a sigmoid stricture and proximal bowel dilatation. Risk of cecal perforation high. Electrolyte abnormalities and malnutrition. Anemia, awaiting blood transfusion. Cardiac evaluation in progress Final Diagnosis Sigmoid stricture. Pneumonia. Hypokalemia. Debilitation. Clinical Quality Measures DVT/VTE Risk/Contraindication: Risk Factor Score Per Nursin RFS Level Per Nursing on Admit: 4+=Very High MONICA TAY MD Nov 03, 2017 09:48
[2017-11-03] MEDS: SODIUM BICARBONATE 650 MG TABLET (NON-FORMULARY) PO SCH ×4 (10:48→20:00)
[2017-11-03] MEDS: ASPIRIN E.C. 81 MG (ECOTRIN) TAB PO SCH (10:48)
[2017-11-03] MEDS: IRON POLYSAC 150 MG CAP (NIFEREX) PO SCH ×2 (10:48→20:00)
[2017-11-03] MEDS: ENOXAPARIN 30 MG/0.3 ML (LOVENOX) SYR SC SCH (11:00)
[2017-11-03] MEDS: CEFEPIME INJECTION 2,000 MG in NS (IVPB) 50 ML IV SCH (13:07)
--- NOTE | 2017-11-03 13:41 | Progress Note (SOAP) ---
Subjective Subjective/Events-last exam Patient has no new complaints. Taking po and receiving TPN. Review of Systems Date Seen by Provider: Nov 03, 2017 Time Seen by Provider: 09:10 Focused Exam Lactate Level 11/01/17 22:30: Lactic Acid Level 1.39 Objective Exam Last Set of Vital Signs Vital Signs Date Time Temp Pulse Resp B/P (MAP) Pulse Ox O2 Delivery O2 Flow Rate FiO2 11/03/17 12:04 Room Air 11/03/17 12:00 96.8 11/03/17 12:00 87 13 138/93 (108) 98 10/30/17 14:13 95.00 Capillary Refill : Less Than 3 Seconds I&O Intake and Output 11/03/17 00:00 Intake Total 1730 ml Output Total 2125 ml Balance -395 ml Intake Oral 1630 ml IV Total 100 ml Output Urine Total 2125 ml # Bowel Movements 6 General: Alert, Cooperative, Other (cachetic) Lungs: Clear to Auscultation Heart: Regular Rate Abdomen: Other (distended) Psych/Mental Status: Mood NL Results/Procedures Lab Laboratory Tests 11/02/17 15:16: Glucometer 131H 11/02/17 23:42: Glucometer 164H 11/03/17 03:30: White Blood Count 7.7, Red Blood Count 2.13L, Hemoglobin 7.4L, Hematocrit 22L, Mean Corpuscular Volume 101H, Mean Corpuscular Hemoglobin 35H, Mean Corpuscular Hemoglobin Concent 34, Red Cell Distribution Width 20.9H, Platelet Count 87L, Mean Platelet Volume , Neutrophils (%) (Auto) 82H, Lymphocytes (%) (Auto) 9L, Monocytes (%) (Auto) 9, Eosinophils (%) (Auto) 0, Basophils (%) (Auto) 0, Neutrophils # (Auto) 6.3, Lymphocytes # (Auto) 0.7L, Monocytes # (Auto) 0.7, Eosinophils # (Auto) 0.0, Basophils # (Auto) 0.0, Sodium Level 149H, Potassium Level 2.6L, Chloride Level 117H, Carbon Dioxide Level 21, Anion Gap 11, Blood Urea Nitrogen 56H, Creatinine 1.81H, Estimat Glomerular Filtration Rate 37, BUN/ Creatinine Ratio 31, Glucose Level 140H, Calcium Level 6.9L, Phosphorus Level 4.1, Magnesium Level 2.0, Total Bilirubin 1.4H, Aspartate Amino Transf (AST/SGOT ) 22, Alanine Aminotransferase (ALT/SGPT) 27, Alkaline Phosphatase 95, Total Protein 4.5L, Albumin 2.2L Microbiology 11/01/17 Blood Culture - Preliminary, Resulted No growth 11/02/17 C. difficile GDH Antigen & Toxins - Final, Complete 10/30/17 MRSA Screen - Final, Complete MRSA not isolated Radiology Date of Exam: 10/31/17 CHEST 1 VIEW, AP/PA ONLY INDICATION: Anemia and renal failure and hypokalemia. Frontal chest obtained at 3:41 a.m. and compared to 10/30/2017 FINDINGS: The heart is enlarged and appears similar to the prior study. The right-sided PICC line is unchanged. There is bibasilar infiltrate which is unchanged compared to the prior study. There is a small amount of pleural fluid in the left costophrenic angle. This appears mildly decreased compared to yesterday. IMPRESSION: Cardiomegaly. Unchanged bibasilar infiltrates. Mild decrease in left pleural fluid compared to the prior study. Assessment/Plan Assessment/Plan (1) Hypokalemia Status: Resolved Assessment & Plan: 10/30 -1.5 -replaced with 80 mEq 10/31 -1.3 this AM -replace with additional 80 mEq -recheck this afternoon 11/01 -2.2 this AM -continue replacement -consider renal tubular acidosis as potential cause; possibly secondary to autoimmune hepatitis as pt has elevated liver enzymes and no other obvious cause , but clearly is spilling potassium at the renal level; will add sodium bicarb to see if this helps to correct potassium further -recheck this afternoon and continue replacement as needed 11/02 3.6 -- RESOLVED -will continue to need daily supplementation, and additional replacement if calcium is going to be administered 11/03 - K down to 2.6 - replaced w/ 50mEq KCL (2) Hypomagnesemia Status: Resolved Assessment & Plan: 10/30 -undetectable on admission -4 grams 10/31 -1.1 this AM -2 grams IVPB -recheck in AM 11/01 1.9 --> resolved 11/02 2.0, remains WNL (3) Hypocalcemia Status: Acute Assessment & Plan: 10/30 -4.4 on admission 10/31 -4.5 this AM -difficult to replace based on pt's other severe electrolyte abnormalities, mainly his potassium -will likely need to aggressively replace his potassium and bring it to a more normal level before attempting additional calcium replacement, as it is counterproductive to attempt replacement of both at once 11/01 -5.1 this AM -continue to feel that it is more imperative that pt's potassium be replaced before attempting to correct his calcium, and doing both at once is counterproductive -given 1 dose overnight by eICU -will continue to aggressively attempt to bring potassium to a more normal range , then attempt calcium correction with continued potassium replacement, as correcting one before the other seems like it may be more successful in the long run, and the previous efforts to correct both at once have led to minimal success in correction of either at this point 11/02 -improved, now 6.5 -now that potassium has normalized, calcium can be corrected more easily, but additional potassium will be needed if calcium is supplemented to keep him in normal range 11/03/17 - Ca 6.9 (4) Acute renal failure Status: Acute Assessment & Plan: 10/30 -Cr 2.54 on admission -GFR 25 -BUN 60 10/31 -Cr 2.54 --> 2.43 -GFR 25 --> 26 -BUN 60 --> 63 11/01 -Cr 2.54 --> 2.43 --> 2.30 -GFR 25 --> 26 -BUN 60 --> 63 --> 63 11/02 -improving slowly -Cr 2.54 --> 2.43 --> 2.30 --> 2.05 11/03/17 - continues to improve; today Cr 1.81 Qualifiers: Qualified Codes: N17.9 - Acute kidney failure, unspecified (5) Hypoalbuminemia Status: Acute Assessment & Plan: 10/30 1.8 11/02 -will replace q8h x24 hours (6) Severe anemia Status: Acute Assessment & Plan: 10/30 6.4 on admission transfused 2 units PRBC 10/31 -6.4 -->8.9 11/01 -6.4 --> 8.9 --> 9.2 -s/p 2 units PRBC on 10/30 -heme positive stool -CT abd pending -maintaining Hgb 11/02 -6.4 --> 8.9 --> 9.2 --> 8.7 -s/p 2 units PRBC on 10/3011/03/17 - Hb continues to trend down - 7.4 today - plan to transfuse tomorrow prior to surgery (7) Thrombocythemia Status: Chronic Assessment & Plan: Consult to Dr. Hernandez 11/01 -plan is to hold hydroxyurea for some time -will continue to attempt to correct electrolytes -Dr. Hernandez availble if needed, will check on patient on Sunday -platelets 101 --> 98 --> 88 11/02 -platelets 101 --> 98 --> 88 --> 91 11/03/17 - plt 87 (8) History of pulmonary embolism Status: Chronic Permanent Comment: 03/2017 Last Edited By: Alisha San on Jun 22, 2017 14: 28 Assessment & Plan: 10/31 -home eliquis on hold today -will likely restart tomorrow if Hgb remains stable 11/01 -pt appears not to have been taking his eliquis at home -renal dosing lovenox started today (9) At risk for falls Status: Chronic Assessment & Plan: 10/31 -pt's living conditions not suitable for him to return home; will need placement at discharge 11/01 -pt spoke with social work and reported is willing to go to facility at discharge; they have begun seeking potential placement -pt reports his biggest goal is "to be clean" -expect that patient will do quite well with placement in a skilled facility where he is taken care of -family informed at admission that patient would not be able to return home, as he was not being adequately cared for, they were - for the most part - in agreement, son had some reservations because he did not think patient would be willing to go; discussed with son that patient would require placement at discharge and could not return home 11/02 -PT to eval and treat (10) Sigmoid stricture Status: Chronic Assessment & Plan: 10/31 -biopsied by Dr. Contreras in Nov -not a surgical candidate given his overall poor health -consider CT scan to evaluate if stricture has become obstructing 11/01 -some abd distension and discomfort, passing loose stool -CT abd/pelvis ordered for today; no contrast due to renal function 11/02 -abnormal CT abd/pelvis although difficulty defining many structures due to lack of contrast -consult to Dr. Contreras, who has seen pt in the past for this -if CT with contrast needed for further evaluation, will buffer renal function with steroids, fluid and sodium bicarb 11/03/17 - Dr. Contreras plans to take patient to OR Sunday or Sunday; Dr. Oglesby covering this weekend. (11) Chronic combined systolic and diastolic CHF (congestive heart failure) Status: Chronic Permanent Comment: Cardiac Cath 2014 with nonischemic cardiomyopathy and EF 40% Echocardiogram 01/2017 with aortic root mildly dilated, grade 1 diastolic dysfunction, EF 55-65% and hypokinesis inferior myocardium Stress test 01/2017 negative for ischemia, had predominantly fixed apical defect with mild reversability and low normal LV function Last Edited By: Alisha San on Jun 22, 2017 14:23 Assessment & Plan: 11/01 -appears stable, may consider repeat echo depending on pt's clinical course (12) Generalized weakness Status: Chronic Assessment & Plan: 11/01 -see above under "at risk for falls (13) Sepsis Status: Acute Assessment & Plan: 10/31 -likely secondary to bilateral PNA Qualifiers: Qualified Codes: A41.9 - Sepsis, unspecified organism (14) Protein calorie malnutrition Status: Chronic Assessment & Plan: 10/30 -prealbumin 10 in Jun 26 -will recheck in AM 11/01 -prealbumin pending 11/02 prealbumin now 7.5; consider TPN for additional nutrition 11/03/17 - pt has been started on TPN Qualifiers: Qualified Codes: E44.0 - Moderate protein-calorie malnutrition (15) GI bleed Status: Chronic Assessment & Plan: 10/31 -heme positive stools on admission -n chi bleeding noted -CT abd/pelvis in AM 11/02 -abnormal CT, consult to Dr. Contreras Qualifiers: Qualified Codes: K92.2 - Gastrointestinal hemorrhage, unspecified (16) DVT prophylaxis Status: Acute Assessment & Plan: 10/31 -chemical prophylaxis currently on hold due to need for transfusion on admission -will likely restart in AM if Hgb remains stable 11/01 -stable Hgb -lovenox with renal dosing (17) PNA (pneumonia) Status: Acute Assessment & Plan: 10/31 -CXR this AM reports bibasilar infiltrates -Cefepime, Vanc 11/01 -above in error -- Cefepime and Levaquin, with renal dosing -abx day 2 11/02 -Cefepime and Levaquin day 3 -bilateral pleural effusions per CT Qualifiers: (18) Cellulitis of right upper extremity Status: Acute Assessment & Plan: 11/01 -right elbow with significant edema and redness that was not previously noted -near, but does not appear to include, PICC insertion site -bruising noted and PICC team reports that there was a first attempt made in right arm for PICC placement and that it could be hematoma formation from that; this is certainly a reasonable consideration, however given pt's precarious state overall, will have right PICC pulled, as risk for spread of infection is too high and bacteremia would likely cause significant deterioration, which pt would very likely not recover from -pt with multiple superficial bites from bed bug infestation, and easily could have gotten wound infection from this, as pt was brought in covered in feces and dirt -will have PICC pulled and cultured as a precaution, and placed in other arm -will continue with cefepime for now; if signs of worsening infection noted, will add vancomycin 11/02 -no change in abx for now, pt maintaining on current regimen and no spreading of cellulitis noted; more bruising, favoring possible hematoma from original PICC attempt (19) Bilateral pleural effusion Status: Acute Assessment & Plan: 11/02 -noted on CT done yesterday evening -pt stable on room air -Dr. Contreras consulted, will get his opinion on drainage vs diuretic management. (20) Hypotension Status: Resolved Assessment & Plan: 10/30 -responded to fluid boluses 10/31 -maintaining his pressure today Qualifiers: Qualified Codes: I95.9 - Hypotension, unspecified (21) Hyperphosphatemia Status: Resolved Assessment & Plan: 11/01 5.9 --> 5.8 --> 5.3 -continue to trend 11/02 4.4 today - RESOLVED Clinical Quality Measures DVT/VTE Risk/Contraindication: Risk Factor Score Per Nursin RFS Level Per Nursing on Admit: 4+=Very High YUNIOR CAMPBELL DO Nov 03, 2017 13:41
--- NOTE | 2017-11-03 13:43 | Physical Therapy Daily Note ---
PT Daily Note-Current Subjective Pt in bed without c/o. Agreeable to up to chair. Mental Status Patient Orientation: Person, Place, Time, Situation multiple lines Transfers Functional [place] Measure 0=Not Assessed/NA 4=Minimal Assistance 1=Total Assistance 5=Supervision or Setup 2=Maximal Assistance 6=Modified [place] 3=Moderate Assistance 7=Complete IndependenceIRFPAI Quality Coding Scale 6 Independent with activity with or without an assistive device 5 Patient requires set up or clean up by helper. Patient completes activity by themselves 4 Supervision or touching assist (CGA). [place] provide cues , steadying assist 3 The helper provides less than half the effort to complete the activity 2 The helper provides more than half the effort to complete the activity 1 Dependent. The helper does all the effort to complete an activity 7 Patient refused to complete or attempt activity 9 The patient did not perform the activity before the current illness or injury 88 Not attempted due to Medical conditions or safety concerns Supine to/from Sit: 3 Sit to/from Stand: 4 Bed to/from Chair: 4 Mod assist to get to EOB. Bed height up to ease sit->stand. Max VCS for sequencing, safety with bed->chair. Weight Bearing Right Lower Extremity: Right Full Weight Bearing Left Lower Extremity: Left Full Weight Bearing Treatments Transfer training, up to chair with FWW. Pt in chair with needs met, nursing addressing IV. Assessment Current Status: Good Progress Pt tolerated very well. Skilled VCS for safe use of FWW. PT Short Term Goals Short Term Goals Time Frame: Nov 09, 2017 Transfers (B,C,W/C) (FIM): 4 Gait (FIM): 1 Gait Distance Comment: 20' Gait Level of Assist: 4 Gait Assistive Device: FWW PT Plan Problem List Problem List: Activity Tolerance, Functional Strength, Safety, Balance, Gait, Transfer, Bed Mobility Treatment/Plan Treatment Plan: Continue Plan of Care Treatment Plan: Bed Mobility, Education, Functional Activity Perri, Functional Strength, Gait, Safety, Therapeutic Exercise, Transfers Treatment Duration: Nov 09, 2017 Frequency: 6 times per week Estimated Hrs Per Day: .25 hour per day (15-30') Patient and/or Family Agrees t: Yes Safety Risks/Education Patient Education: Transfer Techniques Teaching Recipient: Patient Teaching Methods: Discussion Response to Teaching: Reinforcement Needed Time/GCodes Time In: 1303 Time Out: 1320 Total Billed Treatment Time: 17 Total Billed Treatment 1, FA x 17' G Codes Necessary: VICKIE Sinha DPFifi Nov 03, 2017 13:43
[2017-11-03] MEDS ORDERED: KCL 20 MEQ TAB (K-DUR) PO ONE (15:30)
[2017-11-03] MEDS: LEVOFLOXACIN 750 MG/150 ML IV 150 ML IV SCH (15:33)
[2017-11-03] MEDS: SODIUM ACETATE IV SCH ×9 (17:46)
[2017-11-03] MEDS: POTASSIUM CHLORIDE IV SCH ×9 (17:46)
[2017-11-03] MEDS: [UNRECOGNIZED DRUG - OTHER] IV SCH ×9 (17:46)
[2017-11-04] VITALS (30 sets, daily range): BP systolic 101–143; BP diastolic 58–98
[2017-11-04 04:51] LABS: BASOPHILS % (AUTO) 0 % (0-10); EOSINOPHILS % (AUTO) 0 % (0-10); HEMATOCRIT 23 % (40-54); HEMOGLOBIN 7.6 G/DL (13.3-17.7); LYMPHOCYTES # (AUTO) 0.6 X 10^3 (1.0-4.0); LYMPHOCYTES % (AUTO) 7 % (12-44); MEAN CORPUSCULAR HEMOGLOBIN 34 PG (25-34); MEAN CORPUSCULAR HGB CONC 33 G/DL (32-36); MEAN CORPUSCULAR VOLUME 103 FL (80-99); MONOCYTES # (AUTO) 1.1 X 10^3 (0.0-1.0); MONOCYTES % (AUTO) 12 % (0-12); NEUTROPHILS # (AUTO) 7.1 X 10^3 (1.8-7.8); NEUTROPHILS % (AUTO) 80 % (42-75); PLATELET COUNT 105 10^3/uL (130-400); RED BLOOD COUNT 2.22 10^6/uL (4.35-5.85); RED CELL DISTRIBUTION WIDTH 21.6 % (10.0-14.5); WHITE BLOOD COUNT 8.9 10^3/uL (4.3-11.0)
[2017-11-04 05:13] LABS: ALBUMIN 2.2 GM/DL (3.2-4.5); BILIRUBIN,TOTAL 1.3 MG/DL (0.1-1.0); CALCIUM 7.8 MG/DL (8.5-10.1); CREATININE SERUM 1.45 MG/DL (0.60-1.30); MAGNESIUM 1.7 MG/DL (1.8-2.4); PHOSPHORUS 3.3 MG/DL (2.3-4.7); POTASSIUM 3.2 MMOL/L (3.6-5.0); TOTAL PROTEIN 4.6 GM/DL (6.4-8.2)
[2017-11-04] MEDS: POTASSIUM CL 10MEQ/50ML IVPB 50 ML IV SCH ×5 (05:19→07:12)
[2017-11-04] MEDS: KCL 20 MEQ TAB (K-DUR) PO SCH (05:19)
[2017-11-04] MEDS: MAGNESIUM 1 GM/100 ML IVPB 100 ML IV SCH ×3 (05:19→06:34)
[2017-11-04] MEDS: CATHETER FLUSH 10 ML SYR IV SCH ×3 (05:27→20:15)
[2017-11-04] MEDS: PANTOPRAZOLE 40 MG (PROTONIX) TAB PO SCH (05:29)
[2017-11-04] MEDS: ZINC OXIDE 16% OINT (BUTT PASTE) 113 GM TUBE TOP PRN (05:33)
--- NOTE | 2017-11-04 07:29 | Diagnostic Imaging Report ---
Indication: Dyspnea, severe anemia, hypokalemia. Discussion: Single portable upright view of the chest was obtained, comparison 11/03/2017. Heart borders remain obscured. Left PICC line is stable. Small bilateral pleural effusions with associated opacities are stable. No pneumothorax. Low lung volumes overall. Gas-filled colon is again partially visualized. Impression: 1. Stable chest including bilateral pleural effusions and bibasilar opacities. Dictated by: Dictated on workstation # [id number]
[2017-11-04] MEDS: ASPIRIN E.C. 81 MG (ECOTRIN) TAB PO SCH (08:44)
[2017-11-04] MEDS: SODIUM BICARBONATE 650 MG TABLET (NON-FORMULARY) PO SCH ×4 (08:45→20:15)
[2017-11-04] MEDS: IRON POLYSAC 150 MG CAP (NIFEREX) PO SCH ×2 (08:45→20:15)
--- NOTE | 2017-11-04 09:34 | Progress Note (SOAP) ---
Subjective Subjective/Events-last exam Pt has no new complaints. Abdomen continues to be distended. Review of Systems Date Seen by Provider: Nov 04, 2017 Time Seen by Provider: 09:10 Focused Exam Lactate Level 11/01/17 22:30: Lactic Acid Level 1.39 Objective Exam Last Set of Vital Signs Vital Signs Date Time Temp Pulse Resp B/P (MAP) Pulse Ox O2 Delivery O2 Flow Rate FiO2 11/04/17 08:44 98.0 11/04/17 07:00 97 11/04/17 06:00 11 118/89 (99) 96 Room Air 10/30/17 14:13 95.00 Capillary Refill : Less Than 3 Seconds I&O Intake and Output 11/04/17 00:00 Intake Total 2350 ml Output Total 2600 ml Balance -250 ml Intake Oral 1650 ml IV Total 700 ml Output Urine Total 2600 ml # Bowel Movements 3 General: Alert, Oriented X3, Cooperative Lungs: Clear to Auscultation Heart: Regular Rate Abdomen: Other (distended) Psych/Mental Status: Mood NL Results/Procedures Lab Laboratory Tests 11/03/17 13:33: Glucometer 199H 11/03/17 13:55: Potassium Level 2.9L 11/03/17 18:27: Glucometer 156H 11/03/17 23:23: Glucometer 142H 11/04/17 04:45: White Blood Count 8.9, Red Blood Count 2.22L, Hemoglobin 7.6L, Hematocrit 23L, Mean Corpuscular Volume 103H, Mean Corpuscular Hemoglobin 34, Mean Corpuscular Hemoglobin Concent 33, Red Cell Distribution Width 21.6H, Platelet Count 105L, Mean Platelet Volume , Neutrophils (%) (Auto) 80H, Lymphocytes (%) (Auto) 7L, Monocytes (%) (Auto) 12, Eosinophils (%) (Auto) 0, Basophils (%) (Auto) 0, Neutrophils # (Auto) 7.1, Lymphocytes # (Auto) 0.6L, Monocytes # (Auto) 1.1H, Eosinophils # (Auto) 0.0, Basophils # (Auto) 0.0, Sodium Level 151H, Potassium Level 3.2L, Chloride Level 120H, Carbon Dioxide Level 22, Anion Gap 9, Blood Urea Nitrogen 56H, Creatinine 1.45H, Estimat Glomerular Filtration Rate 48, BUN/ Creatinine Ratio 39, Glucose Level 135H, Calcium Level 7.8L, Phosphorus Level 3.3, Magnesium Level 1.7L, Total Bilirubin 1.3H, Aspartate Amino Transf (AST/ SGOT) 19, Alanine Aminotransferase (ALT/SGPT) 24, Alkaline Phosphatase 90, Total Protein 4.6L, Albumin 2.2L Microbiology 11/01/17 Blood Culture - Preliminary, Resulted No growth 11/02/17 C. difficile GDH Antigen & Toxins - Final, Complete 10/30/17 MRSA Screen - Final, Complete MRSA not isolated Radiology Date of Exam: 10/31/17 CHEST 1 VIEW, AP/PA ONLY INDICATION: Anemia and renal failure and hypokalemia. Frontal chest obtained at 3:41 a.m. and compared to 10/30/2017 FINDINGS: The heart is enlarged and appears similar to the prior study. The right-sided PICC line is unchanged. There is bibasilar infiltrate which is unchanged compared to the prior study. There is a small amount of pleural fluid in the left costophrenic angle. This appears mildly decreased compared to yesterday. IMPRESSION: Cardiomegaly. Unchanged bibasilar infiltrates. Mild decrease in left pleural fluid compared to the prior study. Assessment/Plan Assessment/Plan (1) Sigmoid stricture Status: Chronic Assessment & Plan: 10/31 -biopsied by Dr. Contreras in Nov -not a surgical candidate given his overall poor health -consider CT scan to evaluate if stricture has become obstructing 11/01 -some abd distension and discomfort, passing loose stool -CT abd/pelvis ordered for today; no contrast due to renal function 11/02 -abnormal CT abd/pelvis although difficulty defining many structures due to lack of contrast -consult to Dr. Contreras, who has seen pt in the past for this -if CT with contrast needed for further evaluation, will buffer renal function with steroids, fluid and sodium bicarb 11/03/17 - Dr. Contreras plans to take patient to OR Sunday or Sunday; Dr. Oglesby covering this weekend. (2) Hypokalemia Status: Acute Assessment & Plan: 10/30 -1.5 -replaced with 80 mEq 10/31 -1.3 this AM -replace with additional 80 mEq -recheck this afternoon 11/01 -2.2 this AM -continue replacement -consider renal tubular acidosis as potential cause; possibly secondary to autoimmune hepatitis as pt has elevated liver enzymes and no other obvious cause , but clearly is spilling potassium at the renal level; will add sodium bicarb to see if this helps to correct potassium further -recheck this afternoon and continue replacement as needed 11/02 3.6 -- NORMALIZED -will continue to need daily supplementation, and additional replacement if calcium is going to be administered 11/03 - K down to 2.6 - replaced w/ 50mEq KCL 11/04 - K 3.2 - replaced this am (3) Hypomagnesemia Status: Acute Assessment & Plan: 10/30 -undetectable on admission -4 grams 10/31 -1.1 this AM -2 grams IVPB -recheck in AM 11/01 1.9 --> resolved 11/02 2.0, remains WNL 11/04 - Mg 1.7 - replaced w/ 2g IV (4) Hypocalcemia Status: Acute Assessment & Plan: 10/30 -4.4 on admission 10/31 -4.5 this AM -difficult to replace based on pt's other severe electrolyte abnormalities, mainly his potassium -will likely need to aggressively replace his potassium and bring it to a more normal level before attempting additional calcium replacement, as it is counterproductive to attempt replacement of both at once 11/01 -5.1 this AM -continue to feel that it is more imperative that pt's potassium be replaced before attempting to correct his calcium, and doing both at once is counterproductive -given 1 dose overnight by eICU -will continue to aggressively attempt to bring potassium to a more normal range , then attempt calcium correction with continued potassium replacement, as correcting one before the other seems like it may be more successful in the long run, and the previous efforts to correct both at once have led to minimal success in correction of either at this point 11/02 -improved, now 6.5 -now that potassium has normalized, calcium can be corrected more easily, but additional potassium will be needed if calcium is supplemented to keep him in normal range 11/03/17 - Ca 6.9 11/04 - Ca improved to 7.3 (5) Acute renal failure Status: Acute Assessment & Plan: 10/30 -Cr 2.54 on admission -GFR 25 -BUN 60 10/31 -Cr 2.54 --> 2.43 -GFR 25 --> 26 -BUN 60 --> 63 11/01 -Cr 2.54 --> 2.43 --> 2.30 -GFR 25 --> 26 -BUN 60 --> 63 --> 63 11/02 -improving slowly -Cr 2.54 --> 2.43 --> 2.30 --> 2.05 11/03/17 - continues to improve; today Cr 1.81 11/04/17 - continues to improve; today Cr. 1.45 Qualifiers: Qualified Codes: N17.9 - Acute kidney failure, unspecified (6) Hypoalbuminemia Status: Acute Assessment & Plan: 10/30 1.8 11/02 -will replace q8h x24 hours 10/30 1.8 11/02 -will replace q8h x24 hours (7) Severe anemia Status: Acute Assessment & Plan: 10/30 6.4 on admission transfused 2 units PRBC 10/31 -6.4 -->8.9 11/01 -6.4 --> 8.9 --> 9.2 -s/p 2 units PRBC on 10/30 -heme positive stool -CT abd pending -maintaining Hgb 11/02 -6.4 --> 8.9 --> 9.2 --> 8.7 -s/p 2 units PRBC on 10/3011/03/17 - Hb continues to trend down - 7.4 today - plan to transfuse tomorrow prior to surgery 11/04/17 - 2 U prbc ordered for today; Hb 7.6 (8) Thrombocythemia Status: Chronic Assessment & Plan: Consult to Dr. Hernandez 11/01 -plan is to hold hydroxyurea for some time -will continue to attempt to correct electrolytes -Dr. Hernandez availble if needed, will check on patient on Sunday -platelets 101 --> 98 --> 88 11/04 -platelets 101 --> 98 --> 88 --> 91 -->87 -->105 (9) History of pulmonary embolism Status: Chronic Permanent Comment: 03/2017 Last Edited By: Alisha San on Jun 22, 2017 14: 28 Assessment & Plan: 10/31 -home eliquis on hold today -will likely restart tomorrow if Hgb remains stable 11/01 -pt appears not to have been taking his eliquis at home -renal dosing lovenox started today (10) At risk for falls Status: Chronic Assessment & Plan: 10/31 -pt's living conditions not suitable for him to return home; will need placement at discharge 11/01 -pt spoke with social work and reported is willing to go to facility at discharge; they have begun seeking potential placement -pt reports his biggest goal is "to be clean" -expect that patient will do quite well with placement in a skilled facility where he is taken care of -family informed at admission that patient would not be able to return home, as he was not being adequately cared for, they were - for the most part - in agreement, son had some reservations because he did not think patient would be willing to go; discussed with son that patient would require placement at discharge and could not return home 11/02 -PT to eval and treat (11) Chronic combined systolic and diastolic CHF (congestive heart failure) Status: Chronic Permanent Comment: Cardiac Cath 2014 with nonischemic cardiomyopathy and EF 40% Echocardiogram 01/2017 with aortic root mildly dilated, grade 1 diastolic dysfunction, EF 55-65% and hypokinesis inferior myocardium Stress test 01/2017 negative for ischemia, had predominantly fixed apical defect with mild reversability and low normal LV function Echo 11/03/17 - EF 40-45%; Pulmonary hypertension w/ pulm pressure 60-65mmHg Last Edited By: Yunior Currie on Nov 04, 2017 09:36 Assessment & Plan: 11/01 -appears stable, may consider repeat echo depending on pt's clinical course 11/04/17 - Echo completed; results as above (12) Generalized weakness Status: Chronic Assessment & Plan: 11/01 -see above under "at risk for falls (13) Sepsis Status: Acute Assessment & Plan: 10/31 -likely secondary to bilateral PNA Qualifiers: Qualified Codes: A41.9 - Sepsis, unspecified organism (14) Protein calorie malnutrition Status: Chronic Assessment & Plan: 10/30 -prealbumin 10 in b 10/31 -will recheck in AM 11/01 -prealbumin pending 11/02 prealbumin now 7.5; consider TPN for additional nutrition 11/03/17 - pt has been started on TPN Qualifiers: Qualified Codes: E44.0 - Moderate protein-calorie malnutrition (15) GI bleed Status: Chronic Assessment & Plan: 10/31 -heme positive stools on admission -n chi bleeding noted -CT abd/pelvis in AM 11/02 -abnormal CT, consult to Dr. Contreras 11/04 - Hb generally stable at 7.6; transfuse 2U prbc in anticipation of surgery. Qualifiers: Qualified Codes: K92.2 - Gastrointestinal hemorrhage, unspecified (16) DVT prophylaxis Status: Acute Assessment & Plan: 10/31 -chemical prophylaxis currently on hold due to need for transfusion on admission -will likely restart in AM if Hgb remains stable 11/01 -stable Hgb -lovenox with renal dosing (17) PNA (pneumonia) Status: Acute Assessment & Plan: 10/31 -CXR this AM reports bibasilar infiltrates -Cefepime, Vanc 11/01 -above in error -- Cefepime and Levaquin, with renal dosing -abx day 2 11/02 -Cefepime and Levaquin day 3 -bilateral pleural effusions per CT Qualifiers: (18) Cellulitis of right upper extremity Status: Acute Assessment & Plan: 11/01 -right elbow with significant edema and redness that was not previously noted -near, but does not appear to include, PICC insertion site -bruising noted and PICC team reports that there was a first attempt made in right arm for PICC placement and that it could be hematoma formation from that; this is certainly a reasonable consideration, however given pt's precarious state overall, will have right PICC pulled, as risk for spread of infection is too high and bacteremia would likely cause significant deterioration, which pt would very likely not recover from -pt with multiple superficial bites from bed bug infestation, and easily could have gotten wound infection from this, as pt was brought in covered in feces and dirt -will have PICC pulled and cultured as a precaution, and placed in other arm -will continue with cefepime for now; if signs of worsening infection noted, will add vancomycin 11/02 -no change in abx for now, pt maintaining on current regimen and no spreading of cellulitis noted; more bruising, favoring possible hematoma from original PICC attempt (19) Bilateral pleural effusion Status: Acute (20) Hypotension Status: Resolved Qualifiers: Qualified Codes: I95.9 - Hypotension, unspecified (21) Hyperphosphatemia Status: Resolved Assessment & Plan: 11/01 5.9 --> 5.8 --> 5.3 -continue to trend 11/02 4.4 today - RESOLVED (22) Hypernatremia Status: Acute Assessment & Plan: 11/04/17 - electrolyte adjustment in TPN Clinical Quality Measures DVT/VTE Risk/Contraindication: Risk Factor Score Per Nursin RFS Level Per Nursing on Admit: 4+=Very High YUNIOR CURRIE DO Nov 04, 2017 09:34
[2017-11-04] MEDS: CEFEPIME INJECTION 2,000 MG in NS (IVPB) 50 ML IV SCH (12:05)
[2017-11-04] MEDS: ENOXAPARIN 30 MG/0.3 ML (LOVENOX) SYR SC SCH (12:05)
[2017-11-04] MEDS ORDERED: NS IV 500 ML 500 ML ONE (12:35)
--- NOTE | 2017-11-04 13:05 | Progress Note (SOAP) ---
Subjective Date Seen by Provider: Nov 04, 2017 Time Seen by Provider: 13:03 Subjective/Events-last exam Hypokalemia and anemis of blood loss continue. Transfusion to be initiated. Passing liquid stools. Review of Systems General: Malaise HEENT: No Head Aches, No Eye Pain, No Ear Pain, No Dysphasia, No Sinus Congestion, No Post Nasal Drip, No Sore Throat Pulmonary: Cough Cardiovascular: No: Chest Pain, Palpitations, Orthopnea, Paroxysmal Noc. Dyspnea, Edema, Lt Headedness Gastrointestinal: Diarrhea Genitourinary: No Dysuria, No Frequency, No Incontinence, No Hematuria, No Retention Musculoskeletal: No: other, neck pain, shoulder pain, arm pain, back pain, hand pain, leg pain, foot pain Neurological: Weakness Focused Exam Lactate Level 11/01/17 22:30: Lactic Acid Level 1.39 Objective Exam Vital Signs Date Time Temp Pulse Resp B/P (MAP) Pulse Ox O2 Delivery O2 Flow Rate FiO2 11/04/17 12:56 97.9 100 12 115/76 97 Room Air 11/04/17 08:44 98.0 11/04/17 08:00 Room Air 11/04/17 07:00 97 11/04/17 06:00 96 11 118/89 (99) 96 Room Air 11/04/17 05:00 100 16 129/90 (103) 95 Room Air 11/04/17 04:00 Room Air 11/04/17 04:00 101 20 123/80 (94) 96 Room Air 11/04/17 03:00 93 12 113/82 (92) 95 Room Air 11/04/17 02:00 86 13 112/79 (90) 98 Room Air 11/04/17 01:00 108 24 143/88 (106) 92 Room Air 11/04/17 01:00 108 11/04/17 00:00 Room Air 11/04/17 00:00 98 19 101/71 (81) 95 Room Air 11/03/17 23:23 97.8 11/03/17 23:00 92 16 116/79 (91) 97 Room Air 11/03/17 22:00 93 22 109/76 (87) 94 Room Air 11/03/17 21:00 93 18 103/64 (77) 98 Room Air 11/03/17 20:00 88 17 106/76 (86) 98 Room Air 11/03/17 20:00 Room Air 11/03/17 19:00 96 11/03/17 19:00 96 15 111/73 (86) 93 Room Air 11/03/17 18:00 89 26 120/98 (105) 94 Room Air 11/03/17 17:00 88 17 106/85 (92) 99 Room Air 11/03/17 16:58 Room Air 11/03/17 16:58 97.7 11/03/17 16:00 92 20 120/76 (91) 97 Room Air 11/03/17 15:00 82 27 110/91 (97) 95 Room Air 11/03/17 14:00 93 21 127/90 (102) 96 Room Air I & O 11/04/17 07:00 Intake Total 2250 ml Output Total 2300 ml Balance -50 ml Capillary Refill : Less Than 3 Seconds General Appearance: No Apparent Distress HEENT: Normal ENT Inspection Neck: Normal Inspection Respiratory: Lungs Clear Cardiovascular: Regular Rate, Rhythm Gastrointestinal: non tender, soft Extremity: Non Tender Neurologic/Psychiatric: Oriented x3 Results Lab Laboratory Tests 11/03/17 13:33: Glucometer 199H 11/03/17 13:55: Potassium Level 2.9L 11/03/17 18:27: Glucometer 156H 11/03/17 23:23: Glucometer 142H 11/04/17 04:45: White Blood Count 8.9, Red Blood Count 2.22L, Hemoglobin 7.6L, Hematocrit 23L, Mean Corpuscular Volume 103H, Mean Corpuscular Hemoglobin 34, Mean Corpuscular Hemoglobin Concent 33, Red Cell Distribution Width 21.6H, Platelet Count 105L, Mean Platelet Volume , Neutrophils (%) (Auto) 80H, Lymphocytes (%) (Auto) 7L, Monocytes (%) (Auto) 12, Eosinophils (%) (Auto) 0, Basophils (%) (Auto) 0, Neutrophils # (Auto) 7.1, Lymphocytes # (Auto) 0.6L, Monocytes # (Auto) 1.1H, Eosinophils # (Auto) 0.0, Basophils # (Auto) 0.0, Sodium Level 151H, Potassium Level 3.2L, Chloride Level 120H, Carbon Dioxide Level 22, Anion Gap 9, Blood Urea Nitrogen 56H, Creatinine 1.45H, Estimat Glomerular Filtration Rate 48, BUN/ Creatinine Ratio 39, Glucose Level 135H, Calcium Level 7.8L, Phosphorus Level 3.3, Magnesium Level 1.7L, Total Bilirubin 1.3H, Aspartate Amino Transf (AST/ SGOT) 19, Alanine Aminotransferase (ALT/SGPT) 24, Alkaline Phosphatase 90, Total Protein 4.6L, Albumin 2.2L Microbiology 11/01/17 Blood Culture - Preliminary, Resulted No growth 11/02/17 C. difficile GDH Antigen & Toxins - Final, Complete 10/30/17 MRSA Screen - Final, Complete MRSA not isolated Assessment/Plan Assessment/Plan Assess & Plan/Chief Complaint Gentleman with a sigmoid stricture and proximal bowel dilatation. Risk of cecal perforation high. Electrolyte abnormalities and malnutrition. Anemia, awaiting blood transfusion. Cardiac evaluation in progress Sigmoid stricture, awaiting resection. Final Diagnosis Sigmoid stricture Clinical Quality Measures DVT/VTE Risk/Contraindication: Risk Factor Score Per Nursin RFS Level Per Nursing on Admit: 4+=Very High MONICA TAY MD Nov 04, 2017 1:05 pm
[2017-11-04] MEDS: SODIUM ACETATE IV SCH ×9 (16:47)
[2017-11-04] MEDS: POTASSIUM CHLORIDE IV SCH ×9 (16:47)
[2017-11-04] MEDS: [UNRECOGNIZED DRUG - OTHER] IV SCH ×9 (16:47)
[2017-11-05] VITALS (23 sets, daily range): BP systolic 107–122; BP diastolic 77–105
[2017-11-05 03:38] LABS: BASOPHILS % (AUTO) 0 % (0-10); EOSINOPHILS # (AUTO) 0.1 10^3/uL (0.0-0.3); EOSINOPHILS % (AUTO) 1 % (0-10); HEMATOCRIT 29 % (40-54); HEMOGLOBIN 10.1 G/DL (13.3-17.7); LYMPHOCYTES # (AUTO) 0.6 X 10^3 (1.0-4.0); LYMPHOCYTES % (AUTO) 9 % (12-44); MEAN CORPUSCULAR HEMOGLOBIN 32 PG (25-34); MEAN CORPUSCULAR HGB CONC 35 G/DL (32-36); MEAN CORPUSCULAR VOLUME 93 FL (80-99); MONOCYTES # (AUTO) 1.4 X 10^3 (0.0-1.0); MONOCYTES % (AUTO) 19 % (0-12); NEUTROPHILS # (AUTO) 5.2 X 10^3 (1.8-7.8); NEUTROPHILS % (AUTO) 72 % (42-75); PLATELET COUNT 107 10^3/uL (130-400); RED BLOOD COUNT 3.15 10^6/uL (4.35-5.85); RED CELL DISTRIBUTION WIDTH 26.6 % (10.0-14.5); WHITE BLOOD COUNT 7.3 10^3/uL (4.3-11.0)
[2017-11-05 03:56] LABS: CALCIUM 7.8 MG/DL (8.5-10.1); CREATININE SERUM 1.2 MG/DL (0.60-1.30); MAGNESIUM 1.9 MG/DL (1.8-2.4)
[2017-11-05] MEDS: POTASSIUM CL 10MEQ/50ML IVPB 50 ML IV SCH ×8 (04:02→18:33)
[2017-11-05] MEDS: MAGNESIUM 1 GM/100 ML IVPB 100 ML IV SCH (04:02)
[2017-11-05] MEDS: KCL 20 MEQ TAB (K-DUR) PO SCH (04:03)
[2017-11-05] MEDS: CATHETER FLUSH 10 ML SYR IV SCH ×3 (04:18→20:02)
[2017-11-05] MEDS: PANTOPRAZOLE 40 MG (PROTONIX) TAB PO SCH (04:24)
--- NOTE | 2017-11-05 08:30 | Diagnostic Imaging Report ---
Clinical indication: Patient with severe anemia and hypokalemia and acute renal failure. Exam: Portable chest x-ray upright view. Comparison: Portable chest x-ray dated 11/04/2017. Findings: There is no significant change to the bilateral lung infiltrates and consolidation in the left lung base. There are stable bilateral pleural effusions. There is no significant pneumothorax. Pulmonary vasculature and cardiac silhouette within normal limits for portable projection. Again seen left PICC line with tip overlying the superior vena cava in its midportion. Surgical clips are again seen overlying the upper abdominal region. Again seen nonspecific air distended loops of colon overlying the upper abdomen. Impression: 1: Stable chest x-ray exam with bilateral lung infiltrate/consolidation (left side more than the right) and bilateral pleural effusions. 2: The remainder of this exam shows no significant interval change compared to the prior study of comparison. Dictated by: Dictated on workstation # [id number]
[2017-11-05] MEDS: SODIUM BICARBONATE 650 MG TABLET (NON-FORMULARY) PO SCH ×4 (09:21→20:02)
[2017-11-05] MEDS: IRON POLYSAC 150 MG CAP (NIFEREX) PO SCH ×2 (09:21→20:02)
[2017-11-05] MEDS: ASPIRIN E.C. 81 MG (ECOTRIN) TAB PO SCH (09:21)
[2017-11-05] MEDS: POLYETHYLENE GLYCOL 17 GM (MIRALAX) PACK PO SCH ×2 (09:22→20:02)
[2017-11-05] MEDS ORDERED: POTASSIUM CL 10MEQ/50ML IVPB 50 ML IV ONE (09:30)
[2017-11-05] MEDS ORDERED: ENOXAPARIN 40 MG/0.4 ML (LOVENOX) SYR SC SCH (11:00)
--- NOTE | 2017-11-05 11:33 | Physical Therapy Daily Note ---
PT Daily Note-Current Subjective Patient incontinent BM requiring dependent assist to cleanse. Pain Numeric Pain Scale: 0-No Pain Location: No Pain Reported Mental Status Patient Orientation: Normal For Age Attachments: Cheng Catheter, IV Transfers Functional [place] Measure 0=Not Assessed/NA 4=Minimal Assistance 1=Total Assistance 5=Supervision or Setup 2=Maximal Assistance 6=Modified [place] 3=Moderate Assistance 7=Complete IndependenceIRFPAI Quality Coding Scale 6 Independent with activity with or without an assistive device 5 Patient requires set up or clean up by helper. Patient completes activity by themselves 4 Supervision or touching assist (CGA). [place] provide cues , steadying assist 3 The helper provides less than half the effort to complete the activity 2 The helper provides more than half the effort to complete the activity 1 Dependent. The helper does all the effort to complete an activity 7 Patient refused to complete or attempt activity 9 The patient did not perform the activity before the current illness or injury 88 Not attempted due to Medical conditions or safety concerns Transfers (B, C, W/C) (FIM): 2 Scootin Rollin Supine to/from Sit: 2 Sit to/from Stand: 2 Bed to/from Chair: 2 Patient is very weak and unsafe with all mobility. Sit to stand x 3 sets to assist with cleanse and to improve strength and mobility Weight Bearing Right Lower Extremity: Right Full Weight Bearing Left Lower Extremity: Left Full Weight Bearing Assessment Patient is very weak and unsafe with all mobility. Incontinent BM multiple times/day. Patient to have surgery this week for colon resection. PT Short Term Goals Short Term Goals Time Frame: Nov 09, 2017 Transfers (B,C,W/C) (FIM): 4 Gait (FIM): 1 Gait Distance Comment: 20' Gait Level of Assist: 4 Gait Assistive Device: FWW PT Plan Treatment/Plan Treatment Plan: Continue Plan of Care Treatment Plan: Bed Mobility, Education, Functional Activity Perri, Functional Strength, Gait, Safety, Therapeutic Exercise, Transfers Treatment Duration: Nov 09, 2017 Frequency: 6 times per week Estimated Hrs Per Day: .25 hour per day (15-30') Patient and/or Family Agrees t: Yes Time/GCodes Time In: 1055 Time Out: 1120 Total Billed Treatment Time: 25 Total Billed Treatment 1 visit FA x 2 25 min KAITLYN KAISER PT Nov 05, 2017 11:33
[2017-11-05] MEDS: CEFEPIME INJECTION 2,000 MG in NS (IVPB) 50 ML IV SCH (12:39)
--- NOTE | 2017-11-05 13:40 | Physician Progress Note ---
Progress Note Assessment/Plan Date Seen by Provider: Nov 05, 2017 Time Seen by Provider: 15:00 Events since last exam Pt had 2 more units of RBC and Hb is up to from 7.910.7 today, proper response. He may go to OR today or tomorrow per Dr Contreras for symptomatic colonic stricture. Plt is slowly coming up to 102k today. He has chronic diarrhea but worse since the admission and antibiotics Assessment/Plan IMP: 1. Severe hypokalemia on IV replacement 2. Anemia, multi-factorials, GI bleeding, bug infection, Hydrea, 3. h/o partial gastrectomy, pernicious anemia 4. bedbug infection 5. colonic strictures, s/p multiple biopsies no malignancy. symptomatic, awaiting for Dr Contreras OR [facility]. 6. Malnutrition, low albumin. 7. Thrombocythemia in the past Plt over 1 million. Now becoming thrombocytopenia , most likely due to the infection, acute renal failure and history of Hydrea treatment. Hydrea is on hold now. 8. Bilateral pneumonia. 9. Bilateral large pleural effusion per recent CT scan Plan: 1. Pt blood counts are good enough to surgery as long as HB above 10 and Plt above 100k. Transfusion support if needed. 2. Hold off Hydrea. 3. Please check PT INR before the surgery. 4. Replace electrolytes 5. I will be on vacation starting 11/06-11/11/2017. Please contact cancer center if you have any more questions. 6. stool O+P and C.diff Vitals Last set of Vitals Signs Vital Signs Date Time Temp Pulse Resp B/P (MAP) Pulse Ox O2 Delivery O2 Flow Rate FiO2 11/05/17 12:00 98.9 Room Air 11/05/17 12:00 99 11/05/17 07:00 101 11/05/17 06:00 14 10/30/17 14:13 95.00 I&O I&O Intake and Output 11/05/17 00:00 Intake Total 1700 ml Output Total 2600 ml Balance -900 ml Intake Oral 1050 ml IV Total 450 ml Other 200 ml Output Urine Total 2600 ml # Bowel Movements 6 Labs Laboratory Tests 11/05/17 03:25: White Blood Count 7.3, Red Blood Count 3.15L, Hemoglobin 10.1#L, Hematocrit 29L , Mean Corpuscular Volume 93, Mean Corpuscular Hemoglobin 32, Mean Corpuscular Hemoglobin Concent 35, Red Cell Distribution Width 26.6H, Platelet Count 107L, Mean Platelet Volume , Neutrophils (%) (Auto) 72, Lymphocytes (%) (Auto) 9L, Monocytes (%) (Auto) 19H, Eosinophils (%) (Auto) 1, Basophils (%) (Auto) 0, Neutrophils # (Auto) 5.2, Lymphocytes # (Auto) 0.6L, Monocytes # (Auto) 1.4H, Eosinophils # (Auto) 0.1, Basophils # (Auto) 0.0, Sodium Level 152H, Potassium Level 3.0L, Chloride Level 121H, Carbon Dioxide Level 21, Anion Gap 10, Blood Urea Nitrogen 50H, Creatinine 1.20, Estimat Glomerular Filtration Rate 59, BUN/ Creatinine Ratio 42, Glucose Level 120H, Calcium Level 7.8L, Phosphorus Level 3.0, Magnesium Level 1.9, Triglycerides Level 37 11/05/17 12:00: Potassium Level 3.1L Microbiology 11/01/17 Blood Culture - Preliminary, Resulted No growth 11/02/17 C. difficile GDH Antigen & Toxins - Final, Complete 10/30/17 MRSA Screen - Final, Complete MRSA not isolated Clinical Quality Measures DVT/VTE Risk/Contraindication: Risk Factor Score Per Nursin RFS Level Per Nursing on Admit: 4+=Very High ANNE TALLEY MD Nov 05, 2017 13:39
--- NOTE | 2017-11-05 13:50 | Progress Note (SOAP) ---
Subjective Date Seen by Provider: Nov 05, 2017 Time Seen by Provider: 13:00 Subjective/Events-last exam doing ok. status unchanged. still has abd distention but copious diarrhea. overall poor nutritional status. will get cardiology clearance. will need decompressive surgery either way. Objective Exam Vital Signs Date Time Temp Pulse Resp B/P (MAP) Pulse Ox O2 Delivery O2 Flow Rate FiO2 11/05/17 12:00 98.9 Room Air 11/05/17 12:00 99 Room Air 11/05/17 08:18 99 Room Air 11/05/17 08:18 99.3 Room Air 11/05/17 07:00 101 11/05/17 06:00 96 14 116/80 (92) 97 Room Air 11/05/17 05:00 97 11 116/83 (94) 98 Room Air 11/05/17 04:00 98.0 97 17 111/89 (96) 99 Room Air 11/05/17 03:55 99 Room Air 11/05/17 03:00 103 13 120/88 (99) 97 Room Air 11/05/17 02:00 97 13 113/80 (91) 97 Room Air 11/05/17 01:00 98 14 113/84 (94) 98 Room Air 11/05/17 01:00 101 11/05/17 00:00 98.3 94 12 107/81 (90) 99 Room Air 11/05/17 00:00 96 Room Air 11/04/17 23:00 99 13 114/83 (93) 95 Room Air 11/04/17 22:00 103 15 130/90 (103) 97 Room Air 11/04/17 21:00 96 17 107/80 (89) 97 Room Air 11/04/17 20:00 97 14 126/98 (107) 97 Room Air 11/04/17 19:50 97 Room Air 11/04/17 19:00 100 11/04/17 19:00 98.2 101 14 104/75 (85) 100 Room Air 11/04/17 18:00 92 13 117/58 (77) 97 Room Air 11/04/17 17:00 102 16 112/81 (91) 100 Room Air 11/04/17 16:47 98.2 101 20 110/73 98 Room Air 11/04/17 16:00 104 30 110/73 (85) 99 Room Air 11/04/17 16:00 Room Air 11/04/17 15:40 99.3 96 16 111/77 96 Room Air 11/04/17 15:25 98.8 96 16 101/76 95 Room Air 11/04/17 15:17 98.6 96 16 101/76 96 Room Air 11/04/17 15:00 101 19 101/76 (84) 96 Room Air 11/04/17 14:00 88 12 117/88 (98) 97 Room Air I & O 11/05/17 07:00 Intake Total 1440 ml Output Total 3050 ml Balance -1610 ml Capillary Refill : Less Than 3 Seconds General Appearance: No Apparent Distress HEENT: PERRL/EOMI Neck: Full Range of Motion Respiratory: Chest Non Tender, Lungs Clear, Normal Breath Sounds Cardiovascular: Regular Rate, Rhythm Gastrointestinal: normal bowel sounds, non tender, soft, distended Extremity: Normal Capillary Refill Neurologic/Psychiatric: Alert, Oriented x3 Skin: Normal Color Lymphatic: No Adenopathy Results Lab Laboratory Tests 11/05/17 03:25: White Blood Count 7.3, Red Blood Count 3.15L, Hemoglobin 10.1#L, Hematocrit 29L , Mean Corpuscular Volume 93, Mean Corpuscular Hemoglobin 32, Mean Corpuscular Hemoglobin Concent 35, Red Cell Distribution Width 26.6H, Platelet Count 107L, Mean Platelet Volume , Neutrophils (%) (Auto) 72, Lymphocytes (%) (Auto) 9L, Monocytes (%) (Auto) 19H, Eosinophils (%) (Auto) 1, Basophils (%) (Auto) 0, Neutrophils # (Auto) 5.2, Lymphocytes # (Auto) 0.6L, Monocytes # (Auto) 1.4H, Eosinophils # (Auto) 0.1, Basophils # (Auto) 0.0, Sodium Level 152H, Potassium Level 3.0L, Chloride Level 121H, Carbon Dioxide Level 21, Anion Gap 10, Blood Urea Nitrogen 50H, Creatinine 1.20, Estimat Glomerular Filtration Rate 59, BUN/ Creatinine Ratio 42, Glucose Level 120H, Calcium Level 7.8L, Phosphorus Level 3.0, Magnesium Level 1.9, Triglycerides Level 37 11/05/17 12:00: Potassium Level 3.1L Microbiology 11/01/17 Blood Culture - Preliminary, Resulted No growth 11/02/17 C. difficile GDH Antigen & Toxins - Final, Complete 10/30/17 MRSA Screen - Final, Complete MRSA not isolated Assessment/Plan Assessment/Plan Assess & Plan/Chief Complaint sigmoid diverticular stricture. not fully obstructed but worsening. poor nutritional status and surgical candidate however will need colonic decompessive surgery. Clinical Quality Measures DVT/VTE Risk/Contraindication: Risk Factor Score Per Nursin RFS Level Per Nursing on Admit: 4+=Very High MIKE OTOOLE MD Nov 05, 2017 1:50 pm
[2017-11-05] MEDS: LEVOFLOXACIN 750 MG/150 ML IV 150 ML IV SCH (15:39)
[2017-11-05] MEDS ORDERED: KCL 20 MEQ TAB (K-DUR) PO ONE (16:45)
[2017-11-05] MEDS ORDERED: KCL 20 MEQ TAB (K-DUR) PO NR (16:45)
[2017-11-05] MEDS: POTASSIUM ACETATE IV SCH ×9 (16:49)
[2017-11-05] MEDS: POTASSIUM CHLORIDE IV SCH ×9 (16:49)
[2017-11-05] MEDS: [UNRECOGNIZED DRUG - OTHER] IV SCH ×9 (16:49)
--- NOTE | 2017-11-05 17:28 | Consultation-Cardiology ---
HPI-Cardiology Cardiology Consultation Date of Consultation 11/05/17 Date of Admission Time Seen by Provider: 17:22 Indication: Congestive heart failure HPI 72 years old gentleman with history of mild coronary artery disease, congestive heart failure with chronic left ventricular systolic dysfunction nonischemic cardiomyopathy, admitted to the hospital with generalized weakness, sigmoid stricture. Had rectal tube, still complaining of abdominal distention, seen by Dr. CONTRERAS, he is scheduled for surgery for tomorrow and I was called for preoperative cardiac evaluation. He still reporting occasional episodes of chest pain. Peripheral edema. Shortness of breath on exertion, very limited exercise ability was generalized weakness. Home Medications & Allergies Allergies: Coded Allergies: No Known Drug Allergies (Verified , 06/14/17) Home Medication List Reviewed: Yes QLQ-[id number]-Dvnjsr Hx Patient Social History Marital Status: single Living Status: lives with son and grandson Employed/Student: unemployed Alcohol Use: Denies Use Recreational Drug Use: No Smoking Status: Never a Smoker 2nd Hand Smoke Exposure: No Recent Foreign Travel: No Recent Infectious Disease Expo: No Recent Hopitalizations: No Physical Abuse Screen: No Sexual Abuse: No Immunizations Up To Date Tetanus Booster (TDap): Unknown Past Medical History Past medical history as described below Family Medical History Significant Family History: No Pertinent Family Hx Family Medical Hx Noncontributory to his current condition Constitutional: see HPI, malaise, weakness, weight loss EENTM: see HPI, no symptoms reported Respiratory: see HPI; No cough; dyspnea on exertion; No hemoptysis; orthopnea; No phlegm; short of breath; No stridor, No wheezing, No other Cardiovascular: see HPI, chest pain, edema; No Hx of Intervention, No palpitations, No syncope, No vascular heart diseas, No other Gastrointestinal: see HPI, other (Rectal tube) Genitourinary: see HPI, other (Cheng catheter) Musculoskeletal: see HPI, muscle weakness Skin: see HPI Psychiatric/Neurological: No Symptoms Reported, See HPI Reviewed Test Results Reviewed Test Results Lab Laboratory Tests Test 11/05/17 03:25 11/05/17 12:00 11/05/17 13:47 11/05/17 13:52 Range/Units White Blood Count 7.3 4.3-11.0 10^3/uL Red Blood Count 3.15 L 4.35-5.85 10^6/uL Hemoglobin 10.1 #L 13.3-17.7 G/DL Hematocrit 29 L 40-54 % Mean Corpuscular Volume 93 80-99 FL Mean Corpuscular Hemoglobin 32 25-34 PG Mean Corpuscular Hemoglobin Concent 35 32-36 G/DL Red Cell Distribution Width 26.6 H 10.0-14.5 % Platelet Count 107 L 130-400 10^3/uL Mean Platelet Volume 7.4-10.4 FL Neutrophils (%) (Auto) 72 42-75 % Lymphocytes (%) (Auto) 9 L 12-44 % Monocytes (%) (Auto) 19 H 0-12 % Eosinophils (%) (Auto) 1 0-10 % Basophils (%) (Auto) 0 0-10 % Neutrophils # (Auto) 5.2 1.8-7.8 X 10^3 Lymphocytes # (Auto) 0.6 L 1.0-4.0 X 10^3 Monocytes # (Auto) 1.4 H 0.0-1.0 X 10^3 Eosinophils # (Auto) 0.1 0.0-0.3 10^3/uL Basophils # (Auto) 0.0 0.0-0.1 10^3/uL Sodium Level 152 H 135-145 MMOL/L Potassium Level 3.0 L 3.1 L 3.6-5.0 MMOL/L Chloride Level 121 H 98-107 MMOL/L Carbon Dioxide Level 21 21-32 MMOL/L Anion Gap 10 5-14 MMOL/L Blood Urea Nitrogen 50 H 7-18 MG/DL Creatinine 1.20 0.60-1.30 MG/DL Estimat Glomerular Filtration Rate 59 BUN/Creatinine Ratio 42 Glucose Level 120 H 70-105 MG/DL Calcium Level 7.8 L 8.5-10.1 MG/DL Phosphorus Level 3.0 2.3-4.7 MG/DL Magnesium Level 1.9 1.8-2.4 MG/DL Triglycerides Level 37 <150 MG/DL Lab Scanned Report Transfusion Reaction Form [id number] Radiology Date of Exam: 10/31/17 CHEST 1 VIEW, AP/PA ONLY INDICATION: Anemia and renal failure and hypokalemia. Frontal chest obtained at 3:41 a.m. and compared to 10/30/2017 FINDINGS: The heart is enlarged and appears similar to the prior study. The right-sided PICC line is unchanged. There is bibasilar infiltrate which is unchanged compared to the prior study. There is a small amount of pleural fluid in the left costophrenic angle. This appears mildly decreased compared to yesterday. IMPRESSION: Cardiomegaly. Unchanged bibasilar infiltrates. Mild decrease in left pleural fluid compared to the prior study. Physical Exam Vital Signs Vital Signs - First Documented 10/30/17 10/30/17 10/30/17 06:41 06:53 07:25 Temp 98.2 Pulse 67 Resp 16 B/P (MAP) 82/57 (65) Pulse Ox 92 O2 Delivery Nasal Cannula O2 Flow Rate 2.00 Capillary Refill : Less Than 3 Seconds General Appearance: WD/WN, Moderate Distress Eyes: Bilateral Eye Normal Inspection, Bilateral Eye PERRL, Bilateral Eye EOMI HEENT: PERRL/EOMI, TMs Normal, Normal ENT Inspection, Pharynx Normal Neck: Full Range of Motion, Normal Inspection, Non Tender, Supple Respiratory: Chest Non Tender, No Accessory Muscle Use, No Respiratory Distress , Crackles Cardiovascular: No Gallop, No JVD, No Murmur, Normal Peripheral Pulses, Systolic Murmur, Gallop/S3 Gastrointestinal: Soft, Abnormal Bowel Sounds, Distended Back: Normal Inspection Extremity: Normal Capillary Refill, Normal Inspection, Normal Range of Motion, Non Tender, No Calf Tenderness, Pedal Edema Neurologic/Psychiatric: Alert, Oriented x3, Normal Mood/Affect Skin: Normal Color, Warm/Dry Lymphatic: No Adenopathy A/P-Cardiology Admission Diagnosis Colon Stricture Chest pain nonspecific etiology Coronary artery disease Congestive heart failure Assessment/Plan Colonic/sigmoid stricture, abdominal distention, symptomatic, had multiple biopsies in the past, no malignancy was reported. Managed by Dr. Contreras and scheduled for surgery possibly tomorrow Chest pain nonspecific etiology, still having occasional episodes on and off, cardiac catheterization was done in August 2014 showing mild disease nonobstructive disease. Unlikely to be cardiac in nature. had a stress test done on February 09, 2017 showing no significant ischemia Coronary artery disease, last cardiac catheterization was done on September 16, 2014 which showed mild coronary artery disease nonobstructive disease. Continue medical therapy Congestive heart failure, last echocardiogram was done yesterday showing ejection fraction 40-45 percent. Anasarca with poor nutritional state. Electrolyte imbalance with hypokalemia, hypomagnesemia, hypo-calcemic, followed and managed by primary care physician Anemia, multifactorial, followed and managed by Dr. Hernandez, better today. History of Superficial venous thrombosis Mild bilateral carotid stenosis, last ultrasound was done in March 2016. Continue to monitor. Hypertension, continue to monitor blood pressure Hyperlipidemia, at this time he is at poor nutritional status. Followed and managed by primary care physician Bedbug infestation Generalized weakness and debility, poor oral intake. Bilateral pulmonary infiltrate and bilateral pulmonary edema, followed and managed by primary care physician Preoperative cardiac evaluation, patient is considered at intermediate risk for perioperative cardiovascular complications, decision regarding the surgery, risks versus benefit is deferred to the surgeon Clinical Quality Measures DVT/VTE Risk/Contraindication: Risk Factor Score Per Nursin RFS Level Per Nursing on Admit: 4+=Very High NATASHA BILLINGSLEY MD Nov 05, 2017 17:28
[2017-11-05] MEDS: POTASSIUM CHLORIDE INJ 20 MEQ in LACTATED RINGERS 1,000 ML IV SCH (18:33)
--- NOTE | 2017-11-05 19:46 | Progress Note-Pre Operative ---
Pre-Operative Progress Note H&P Reviewed The H&P was reviewed, patient examined and no changes noted. Date Seen by Provider: Nov 05, 2017 Time Seen by Provider: 18:00 Date H&P Reviewed: Nov 05, 2017 Time H&P Reviewed: 18:00 Pre-Operative Diagnosis: Near obstructing sigmoid diverticular stricture MIKE OTOOLE MD Nov 05, 2017 19:46
--- NOTE | 2017-11-05 21:51 | Progress Note (SOAP) ---
Subjective Subjective/Events-last exam Remains tachycardic and hypokalemic. He states he is feeling fairly well and is wanting to eat pancakes this morning. Review of Systems Date Seen by Provider: Nov 05, 2017 Time Seen by Provider: 10:10 Objective Exam Last Set of Vital Signs Vital Signs Date Time Temp Pulse Resp B/P (MAP) Pulse Ox O2 Delivery O2 Flow Rate FiO2 11/05/17 20:00 102 12 113/77 (89) 94 Room Air 11/05/17 19:00 99.8 10/30/17 14:13 95.00 Capillary Refill : Less Than 3 Seconds I&O Intake and Output 11/05/17 00:00 Intake Total 1700 ml Output Total 2600 ml Balance -900 ml Intake Oral 1050 ml IV Total 450 ml Other 200 ml Output Urine Total 2600 ml # Bowel Movements 6 General: Alert, No Acute Distress Lungs: Clear to Auscultation, Normal Air Movement Heart: Regular Rate (frequent PVC) Abdomen: Other (distended, mild ttp, hypoactive, high pitched bowel sounds) Neuro: Normal Speech Psych/Mental Status: Mood NL Results/Procedures Lab Laboratory Tests 11/05/17 03:25: White Blood Count 7.3, Red Blood Count 3.15L, Hemoglobin 10.1#L, Hematocrit 29L , Mean Corpuscular Volume 93, Mean Corpuscular Hemoglobin 32, Mean Corpuscular Hemoglobin Concent 35, Red Cell Distribution Width 26.6H, Platelet Count 107L, Mean Platelet Volume , Neutrophils (%) (Auto) 72, Lymphocytes (%) (Auto) 9L, Monocytes (%) (Auto) 19H, Eosinophils (%) (Auto) 1, Basophils (%) (Auto) 0, Neutrophils # (Auto) 5.2, Lymphocytes # (Auto) 0.6L, Monocytes # (Auto) 1.4H, Eosinophils # (Auto) 0.1, Basophils # (Auto) 0.0, Sodium Level 152H, Potassium Level 3.0L, Chloride Level 121H, Carbon Dioxide Level 21, Anion Gap 10, Blood Urea Nitrogen 50H, Creatinine 1.20, Estimat Glomerular Filtration Rate 59, BUN/ Creatinine Ratio 42, Glucose Level 120H, Calcium Level 7.8L, Phosphorus Level 3.0, Magnesium Level 1.9, Triglycerides Level 37 11/05/17 12:00: Potassium Level 3.1L 6/18/18 13:47: Lab Scanned Report Transfusion Reaction Form 11/05/17 13:52: Microbiology 11/01/17 Blood Culture - Preliminary, Resulted No growth 11/02/17 C. difficile GDH Antigen & Toxins - Final, Complete 10/30/17 MRSA Screen - Final, Complete MRSA not isolated Radiology Date of Exam: 10/31/17 CHEST 1 VIEW, AP/PA ONLY INDICATION: Anemia and renal failure and hypokalemia. Frontal chest obtained at 3:41 a.m. and compared to 10/30/2017 FINDINGS: The heart is enlarged and appears similar to the prior study. The right-sided PICC line is unchanged. There is bibasilar infiltrate which is unchanged compared to the prior study. There is a small amount of pleural fluid in the left costophrenic angle. This appears mildly decreased compared to yesterday. IMPRESSION: Cardiomegaly. Unchanged bibasilar infiltrates. Mild decrease in left pleural fluid compared to the prior study. Assessment/Plan Assessment/Plan (1) Sigmoid stricture Status: Chronic Assessment & Plan: 10/31 -biopsied by Dr. Contreras in Nov -not a surgical candidate given his overall poor health -consider CT scan to evaluate if stricture has become obstructing 11/01 -some abd distension and discomfort, passing loose stool -CT abd/pelvis ordered for today; no contrast due to renal function 11/02 -abnormal CT abd/pelvis although difficulty defining many structures due to lack of contrast -consult to Dr. Contreras, who has seen pt in the past for this -if CT with contrast needed for further evaluation, will buffer renal function with steroids, fluid and sodium bicarb 11/03/17 - Dr. Contreras plans to take patient to OR Sunday or Sunday; Dr. Oglesby covering this weekend. (2) Hypokalemia Status: Acute Assessment & Plan: 10/30 -1.5 -replaced with 80 mEq 10/31 -1.3 this AM -replace with additional 80 mEq -recheck this afternoon 11/01 -2.2 this AM -continue replacement -consider renal tubular acidosis as potential cause; possibly secondary to autoimmune hepatitis as pt has elevated liver enzymes and no other obvious cause , but clearly is spilling potassium at the renal level; will add sodium bicarb to see if this helps to correct potassium further -recheck this afternoon and continue replacement as needed 11/02 3.6 -- NORMALIZED -will continue to need daily supplementation, and additional replacement if calcium is going to be administered 11/03 - K down to 2.6 - replaced w/ 50mEq KCL 11/04 - K 3.2 - replaced this am 11/05 - Replaced again this am, recheck mid-day to try to catch drop sooner (3) Hypomagnesemia Status: Acute Assessment & Plan: 10/30 -undetectable on admission -4 grams 10/31 -1.1 this AM -2 grams IVPB -recheck in AM 11/01 1.9 --> resolved 11/02 2.0, remains WNL 11/04 - Mg 1.7 - replaced w/ 2g IV (4) Hypocalcemia Status: Acute Assessment & Plan: 10/30 -4.4 on admission 10/31 -4.5 this AM -difficult to replace based on pt's other severe electrolyte abnormalities, mainly his potassium -will likely need to aggressively replace his potassium and bring it to a more normal level before attempting additional calcium replacement, as it is counterproductive to attempt replacement of both at once 11/01 -5.1 this AM -continue to feel that it is more imperative that pt's potassium be replaced before attempting to correct his calcium, and doing both at once is counterproductive -given 1 dose overnight by eICU -will continue to aggressively attempt to bring potassium to a more normal range , then attempt calcium correction with continued potassium replacement, as correcting one before the other seems like it may be more successful in the long run, and the previous efforts to correct both at once have led to minimal success in correction of either at this point 11/02 -improved, now 6.5 -now that potassium has normalized, calcium can be corrected more easily, but additional potassium will be needed if calcium is supplemented to keep him in normal range 11/03/17 - Ca 6.9 11/04 - Ca improved to 7.3 (5) Acute renal failure Status: Acute Assessment & Plan: 10/30 -Cr 2.54 on admission -GFR 25 -BUN 60 10/31 -Cr 2.54 --> 2.43 -GFR 25 --> 26 -BUN 60 --> 63 11/01 -Cr 2.54 --> 2.43 --> 2.30 -GFR 25 --> 26 -BUN 60 --> 63 --> 63 11/02 -improving slowly -Cr 2.54 --> 2.43 --> 2.30 --> 2.05 11/03/17 - continues to improve; today Cr 1.81 11/04/17 - continues to improve; today Cr. 1.45 Qualifiers: Qualified Codes: N17.9 - Acute kidney failure, unspecified (6) Hypoalbuminemia Status: Acute Assessment & Plan: 10/30 1.8 11/02 -will replace q8h x24 hours 10/30 1.8 11/02 -will replace q8h x24 hours (7) Severe anemia Status: Acute Assessment & Plan: 10/30 6.4 on admission transfused 2 units PRBC 10/31 -6.4 -->8.9 11/01 -6.4 --> 8.9 --> 9.2 -s/p 2 units PRBC on 10/30 -heme positive stool -CT abd pending -maintaining Hgb 11/02 -6.4 --> 8.9 --> 9.2 --> 8.7 -s/p 2 units PRBC on 10/3011/03/17 - Hb continues to trend down - 7.4 today - plan to transfuse tomorrow prior to surgery 11/04/17 - 2 U prbc ordered for today; Hb 7.6 (8) Thrombocythemia Status: Chronic Assessment & Plan: Consult to Dr. Hernandez 11/01 -plan is to hold hydroxyurea for some time -will continue to attempt to correct electrolytes -Dr. Hernandez availble if needed, will check on patient on Sunday -platelets 101 --> 98 --> 88 11/04 -platelets 101 --> 98 --> 88 --> 91 -->87 -->105 (9) History of pulmonary embolism Status: Chronic Permanent Comment: 03/2017 Last Edited By: Antony Villarreal on Jun 22, 2017 2: 28 pm Assessment & Plan: 10/31 -home eliquis on hold today -will likely restart tomorrow if Hgb remains stable 11/01 -pt appears not to have been taking his eliquis at home -renal dosing lovenox started today (10) At risk for falls Status: Chronic Assessment & Plan: 10/31 -pt's living conditions not suitable for him to return home; will need placement at discharge 11/01 -pt spoke with social work and reported is willing to go to facility at discharge; they have begun seeking potential placement -pt reports his biggest goal is "to be clean" -expect that patient will do quite well with placement in a skilled facility where he is taken care of -family informed at admission that patient would not be able to return home, as he was not being adequately cared for, they were - for the most part - in agreement, son had some reservations because he did not think patient would be willing to go; discussed with son that patient would require placement at discharge and could not return home 11/02 -PT to eval and treat (11) Chronic combined systolic and diastolic CHF (congestive heart failure) Status: Chronic Permanent Comment: Cardiac Cath 2014 with nonischemic cardiomyopathy and EF 40% Echocardiogram 01/2017 with aortic root mildly dilated, grade 1 diastolic dysfunction, EF 55-65% and hypokinesis inferior myocardium Stress test 01/2017 negative for ischemia, had predominantly fixed apical defect with mild reversability and low normal LV function Echo 11/03/17 - EF 40-45%; Pulmonary hypertension w/ pulm pressure 60-65mmHg Last Edited By: Nicole Currie on Nov 04, 2017 9:36 am Assessment & Plan: 11/01 -appears stable, may consider repeat echo depending on pt's clinical course 11/05/17- Cardiology consult preop (12) Generalized weakness Status: Chronic Assessment & Plan: 11/01 -see above under "at risk for falls (13) Sepsis Status: Acute Assessment & Plan: 10/31 -likely secondary to bilateral PNA Qualifiers: Qualified Codes: A41.9 - Sepsis, unspecified organism (14) Protein calorie malnutrition Status: Chronic Assessment & Plan: 10/30 -prealbumin 10 in Jun 26 -will recheck in AM 11/01 -prealbumin pending 11/02 prealbumin now 7.5; consider TPN for additional nutrition 11/03/17 - pt has been started on TPN Qualifiers: Qualified Codes: E44.0 - Moderate protein-calorie malnutrition (15) GI bleed Status: Chronic Assessment & Plan: 10/31 -heme positive stools on admission -n chi bleeding noted -CT abd/pelvis in AM 11/02 -abnormal CT, consult to Dr. Contreras 11/04 - Hb generally stable at 7.6; transfuse 2U prbc in anticipation of surgery. Qualifiers: Qualified Codes: K92.2 - Gastrointestinal hemorrhage, unspecified (16) DVT prophylaxis Status: Acute Assessment & Plan: 10/31 -chemical prophylaxis currently on hold due to need for transfusion on admission -will likely restart in AM if Hgb remains stable 11/01 -stable Hgb -lovenox with renal dosing (17) PNA (pneumonia) Status: Acute Qualifiers: (18) Cellulitis of right upper extremity Status: Acute Assessment & Plan: 11/01 -right elbow with significant edema and redness that was not previously noted -near, but does not appear to include, PICC insertion site -bruising noted and PICC team reports that there was a first attempt made in right arm for PICC placement and that it could be hematoma formation from that; this is certainly a reasonable consideration, however given pt's precarious state overall, will have right PICC pulled, as risk for spread of infection is too high and bacteremia would likely cause significant deterioration, which pt would very likely not recover from -pt with multiple superficial bites from bed bug infestation, and easily could have gotten wound infection from this, as pt was brought in covered in feces and dirt -will have PICC pulled and cultured as a precaution, and placed in other arm -will continue with cefepime for now; if signs of worsening infection noted, will add vancomycin 11/02 -no change in abx for now, pt maintaining on current regimen and no spreading of cellulitis noted; more bruising, favoring possible hematoma from original PICC attempt (19) Bilateral pleural effusion Status: Acute (20) Hypotension Status: Resolved Qualifiers: Qualified Codes: I95.9 - Hypotension, unspecified (21) Hyperphosphatemia Status: Resolved Assessment & Plan: 11/01 5.9 --> 5.8 --> 5.3 -continue to trend 11/02 4.4 today - RESOLVED (22) Hypernatremia Status: Acute Assessment & Plan: 11/04/17 - electrolyte adjustment in TPN Clinical Quality Measures DVT/VTE Risk/Contraindication: Risk Factor Score Per Nursin RFS Level Per Nursing on Admit: 4+=Very High ANTONY VILLARREAL MD Nov 05, 2017 9:51 pm
[2017-11-06] VITALS (20 sets, daily range): BP systolic 92–133; BP diastolic 61–93
[2017-11-06] MEDS: POTASSIUM CHLORIDE INJ 20 MEQ in LACTATED RINGERS 1,000 ML IV SCH ×2 (04:25→06:19)
[2017-11-06] MEDS: CATHETER FLUSH 10 ML SYR IV SCH ×3 (04:26→22:05)
[2017-11-06] MEDS: POTASSIUM CL 10MEQ/50ML IVPB 50 ML IV SCH ×6 (06:19→15:30)
[2017-11-06] MEDS: MAGNESIUM 1 GM/100 ML IVPB 100 ML IV SCH ×3 (06:19→10:03)
[2017-11-06] MEDS: KCL 20 MEQ TAB (K-DUR) PO SCH (06:19)
[2017-11-06] MEDS: PANTOPRAZOLE 40 MG (PROTONIX) TAB PO SCH (06:19)
[2017-11-06 07:24] LABS: BASOPHILS % (AUTO) 0 % (0-10); EOSINOPHILS % (AUTO) 1 % (0-10); HEMATOCRIT 29 % (40-54); HEMOGLOBIN 9.6 G/DL (13.3-17.7); LYMPHOCYTES # (AUTO) 0.7 X 10^3 (1.0-4.0); LYMPHOCYTES % (AUTO) 11 % (12-44); MEAN CORPUSCULAR HEMOGLOBIN 31 PG (25-34); MEAN CORPUSCULAR HGB CONC 33 G/DL (32-36); MEAN CORPUSCULAR VOLUME 95 FL (80-99); MONOCYTES # (AUTO) 1.2 X 10^3 (0.0-1.0); MONOCYTES % (AUTO) 20 % (0-12); NEUTROPHILS % (AUTO) 68 % (42-75); PLATELET COUNT 126 10^3/uL (130-400); RED BLOOD COUNT 3.06 10^6/uL (4.35-5.85); RED CELL DISTRIBUTION WIDTH 26.9 % (10.0-14.5); WHITE BLOOD COUNT 5.9 10^3/uL (4.3-11.0)
[2017-11-06 07:48] LABS: BUN/CREATININE RATIO 43; CALCIUM 7.9 MG/DL (8.5-10.1); CARBON DIOXIDE 21 MMOL/L (21-32); CHLORIDE 124 MMOL/L (98-107); CREATININE SERUM 1.03 MG/DL (0.60-1.30); GFR ESTIMATED > 60; GLUCOSE 66 MG/DL (70-105); MAGNESIUM 1.6 MG/DL (1.8-2.4); PHOSPHORUS 2.8 MG/DL (2.3-4.7); SODIUM 154 MMOL/L (135-145)
[2017-11-06] MEDS: ASPIRIN E.C. 81 MG (ECOTRIN) TAB PO SCH (08:17)
[2017-11-06] MEDS: IRON POLYSAC 150 MG CAP (NIFEREX) PO SCH ×2 (08:17→20:25)
[2017-11-06] MEDS: POLYETHYLENE GLYCOL 17 GM (MIRALAX) PACK PO SCH ×2 (08:17→20:20)
[2017-11-06] MEDS: SODIUM BICARBONATE 650 MG TABLET (NON-FORMULARY) PO SCH (08:17)
[2017-11-06 08:42] LABS: BAND NEUTROPHILS 2 %; NEUTROPHILS % (MANUAL) 69 %
[2017-11-06 08:43] LABS: BASOPHILS % (MANUAL) 0 %; EOSINOPHILS % (MANUAL) 0 %; LYMPHOCYTES % (MANUAL) 15 %; MONOCYTES % (MANUAL) 14 %
[2017-11-06 08:44] LABS: ANISOCYTOSIS MODERATE; HOWELL-JOLLY BODIES SLIGHT; PAPPENHEIMER BODIES MODERATE
--- NOTE | 2017-11-06 08:49 | Diagnostic Imaging Report ---
INDICATION: Severe anemia, hypokalemia, acute renal failure. TECHNIQUE: Single view chest at 3:01 AM. CORRELATION STUDY: 11/05/2017. FINDINGS: The heart size is enlarged with the presence of vascular congestion, less severe from the prior study. Bilateral pleural effusions along with consolidation and/or edema about the mid and lower lung montero persists, generally stable. The previously noted left-sided central line has been removed. There is rather pronounced gaseous distention of what appears to be predominantly colon in the upper abdomen. There are surgical clips in the epigastric region. IMPRESSION: Cardiac enlargement and vascular congestion but overall less severe than on the prior study. Continued combination of infiltrate and/or edema along with effusions at the lung bases, left greater than right. Dictated by: Dictated on workstation # [id number]
--- NOTE | 2017-11-06 10:07 | Physical Therapy Progress Note ---
Therapy Progress Note Patient to have surgery on this date. Hold PT until further orders. KAITLYN KAISER PT Nov 06, 2017 10:07
[2017-11-06] MEDS ORDERED: ONDANSETRON 4 MG/2 ML (SDV) Z0FRAN ONE (10:33)
[2017-11-06] MEDS ORDERED: LIDOCAINE PF 2% 5 ML (XYLOCAINE) VIAL ONE ×2 (10:33→14:04)
[2017-11-06] MEDS ORDERED: LACTATED RINGERS 0 ML IV ONE (10:33)
[2017-11-06] MEDS ORDERED: fentaNYL INJECTION 100 MCG/2 ML AMP ONE (10:33)
[2017-11-06] MEDS ORDERED: SUCCINYLCHOLINE INJ 100 MG/5 ML SYR ONE (10:33)
[2017-11-06] MEDS ORDERED: ROCURONIUM 10 MG/ML 5 ML SYRINGE IV ONE ×2 (10:33→12:51)
[2017-11-06] MEDS ORDERED: proPOfol 200 MG/20 ML (DIPRIVAN) VIAL IV ONE (10:33)
[2017-11-06] MEDS ORDERED: MIDAZOLAM 2 MG/2 ML (VERSED) VIAL ONE (10:34)
--- NOTE | 2017-11-06 11:20 | Progress Note (SOAP) ---
Subjective Subjective/Events-last exam Afebrile, no acute events. He states he is feeling okay and denies significant abdominal pain. Continues to have liquid stools. Review of Systems Date Seen by Provider: Nov 06, 2017 Time Seen by Provider: 08:00 Objective Exam Last Set of Vital Signs Vital Signs Date Time Temp Pulse Resp B/P (MAP) Pulse Ox O2 Delivery O2 Flow Rate FiO2 11/06/17 09:00 94 18 111/86 (94) 11/06/17 08:20 98.0 11/06/17 08:00 100 11/06/17 07:00 Room Air Capillary Refill : Less Than 3 Seconds I&O Intake and Output 11/06/17 00:00 Intake Total 2590 ml Output Total 2600 ml Balance -10 ml Intake Oral 1190 ml IV Total 1400 ml Output Urine Total 2600 ml # Bowel Movements 7 General: Alert, No Acute Distress Psych/Mental Status: Mental Status NL Results/Procedures Lab Laboratory Tests 11/05/17 12:00: Potassium Level 3.1L 11/05/17 13:47: Lab Scanned Report Transfusion Reaction Form 11/05/17 13:52: Transferrin 88L, Prealbumin 9.5L 11/06/17 07:01: Potassium Level 3.0L, White Blood Count 5.9, Red Blood Count 3.06L, Hemoglobin 9.6L, Hematocrit 29L, Mean Corpuscular Volume 95, Mean Corpuscular Hemoglobin 31 , Mean Corpuscular Hemoglobin Concent 33, Red Cell Distribution Width 26.9H, Platelet Count 126L, Mean Platelet Volume , Neutrophils (%) (Auto) 68, Lymphocytes (%) (Auto) 11L, Monocytes (%) (Auto) 20H, Eosinophils (%) (Auto) 1, Basophils (%) (Auto) 0, Neutrophils # (Auto) 4.0, Lymphocytes # (Auto) 0.7L, Monocytes # (Auto) 1.2H, Eosinophils # (Auto) 0.0, Basophils # (Auto) 0.0, Neutrophils % (Manual) 69, Lymphocytes % (Manual) 15, Monocytes % (Manual) 14, Eosinophils % (Manual) 0, Basophils % (Manual) 0, Band Neutrophils 2, Anisocytosis MODERATE, Pappenheimer Bodies MODERATE, Rob-[place] Bodies SLIGHT , Sodium Level 154H, Chloride Level 124H, Carbon Dioxide Level 21, Anion Gap 9, Blood Urea Nitrogen 44H, Creatinine 1.03, Estimat Glomerular Filtration Rate > 60, BUN/Creatinine Ratio 43, Glucose Level 66L, Calcium Level 7.9L, Phosphorus Level 2.8, Magnesium Level 1.6L Microbiology 11/01/17 Blood Culture - Preliminary, Resulted No growth 11/05/17 C. difficile GDH Antigen & Toxins - Final, Complete 10/30/17 MRSA Screen - Final, Complete MRSA not isolated Radiology Date of Exam: 10/31/17 CHEST 1 VIEW, AP/PA ONLY INDICATION: Anemia and renal failure and hypokalemia. Frontal chest obtained at 3:41 a.m. and compared to 10/30/2017 FINDINGS: The heart is enlarged and appears similar to the prior study. The right-sided PICC line is unchanged. There is bibasilar infiltrate which is unchanged compared to the prior study. There is a small amount of pleural fluid in the left costophrenic angle. This appears mildly decreased compared to yesterday. IMPRESSION: Cardiomegaly. Unchanged bibasilar infiltrates. Mild decrease in left pleural fluid compared to the prior study. Assessment/Plan Assessment/Plan (1) Sigmoid stricture Status: Chronic Assessment & Plan: 10/31 -biopsied by Dr. Contreras in Nov -not a surgical candidate in past given his overall poor health -consider CT scan to evaluate if stricture has become obstructing 11/02 -abnormal CT abd/pelvis although difficulty defining many structures due to lack of contrast -consult to Dr. Contreras, who has seen pt in the past for this 11/03/17 - Dr. Contreras plans to take patient to OR Sunday or Sunday; Dr. Oglesby covering this weekend. 11/06/17- plan for surgery today (2) Hypokalemia Status: Acute Assessment & Plan: 10/30- 1.5 on admission, aggressive replacement 10/31 -1.3 this AM -replace with additional 80 mEq -recheck this afternoon 11/01 -2.2 this AM -continue replacement -consider renal tubular acidosis as potential cause; possibly secondary to autoimmune hepatitis as pt has elevated liver enzymes and no other obvious cause , but clearly is spilling potassium at the renal level; will add sodium bicarb to see if this helps to correct potassium further -recheck this afternoon and continue replacement as needed 11/02 3.6 -- NORMALIZED -will continue to need daily supplementation, and additional replacement if calcium is going to be administered 11/03 - K down to 2.6 - replaced w/ 50mEq KCL 11/04 - K 3.2 - replaced this am 11/05 - Replaced again this am, recheck mid-day to try to catch drop sooner 11/06- low again this am, in spite of over 100 mEq yesterday. Suspect due to lower GI losses and poor intake. RTA less likely given he has not had anion gap acidosis and sodium bicarb has not helped, will d/c for now and continue to replace K. (3) Hypomagnesemia Status: Acute Assessment & Plan: 10/30 -undetectable on admission -4 grams 11/05 replacing daily as needed (4) Hypocalcemia Status: Acute Assessment & Plan: 10/30 -4.4 on admission 10/31 -4.5 this AM -difficult to replace based on pt's other severe electrolyte abnormalities, mainly his potassium -will likely need to aggressively replace his potassium and bring it to a more normal level before attempting additional calcium replacement, as it is counterproductive to attempt replacement of both at once 11/01 -5.1 this AM -continue to feel that it is more imperative that pt's potassium be replaced before attempting to correct his calcium, and doing both at once is counterproductive -given 1 dose overnight by eICU -will continue to aggressively attempt to bring potassium to a more normal range , then attempt calcium correction with continued potassium replacement, as correcting one before the other seems like it may be more successful in the long run, and the previous efforts to correct both at once have led to minimal success in correction of either at this point 11/02 -improved, now 6.5 -now that potassium has normalized, calcium can be corrected more easily, but additional potassium will be needed if calcium is supplemented to keep him in normal range 11/05/17 continues to improve (5) Acute renal failure Status: Acute Assessment & Plan: 10/30 -Cr 2.54 on admission -GFR 25 -BUN 60 11/06- continues to improve with fluids Qualifiers: Qualified Codes: N17.9 - Acute kidney failure, unspecified (6) Hypoalbuminemia Status: Acute Assessment & Plan: 10/30 1.8 11/02 -will replace q8h x24 hours 10/30 1.8 11/02 -will replace q8h x24 hours 11/06 chronic poor nutrition, on TPN now and taking oral (7) Severe anemia Status: Acute Assessment & Plan: 10/30 6.4 on admission transfused 2 units PRBC 10/31 -6.4 -->8.9 11/01 -6.4 --> 8.9 --> 9.2 -s/p 2 units PRBC on 10/30 -heme positive stool -CT abd pending -maintaining Hgb 11/02 -6.4 --> 8.9 --> 9.2 --> 8.7 -s/p 2 units PRBC on 10/3011/03/17 - Hb continues to trend down - 7.4 today - plan to transfuse tomorrow prior to surgery 11/04/17 - 2 U prbc ordered for today; Hb 7.6 (8) Thrombocythemia Status: Chronic Assessment & Plan: Consult to Dr. Hernandez 11/01- platelets currently low -plan is to hold hydroxyurea for some time -will continue to attempt to correct electrolytes -Dr. Hernandez availble if needed, will check on patient on Sunday (9) History of pulmonary embolism Status: Chronic Permanent Comment: 03/2017 Last Edited By: Antony Villarreal on Jun 22, 2017 2: 28 pm Assessment & Plan: 10/31 -home eliquis on hold today -will likely restart tomorrow if Hgb remains stable 11/01 -pt appears not to have been taking his eliquis at home -renal dosing lovenox started today (10) At risk for falls Status: Chronic Assessment & Plan: 10/31 -pt's living conditions not suitable for him to return home; will need placement at discharge 11/01 -pt spoke with social work and reported is willing to go to facility at discharge; they have begun seeking potential placement -pt reports his biggest goal is "to be clean" -expect that patient will do quite well with placement in a skilled facility where he is taken care of -family informed at admission that patient would not be able to return home, as he was not being adequately cared for, they were - for the most part - in agreement, son had some reservations because he did not think patient would be willing to go; discussed with son that patient would require placement at discharge and could not return home 11/02 -PT to eval and treat (11) Chronic combined systolic and diastolic CHF (congestive heart failure) Status: Chronic Permanent Comment: Cardiac Cath 2014 with nonischemic cardiomyopathy and EF 40% Echocardiogram 01/2017 with aortic root mildly dilated, grade 1 diastolic dysfunction, EF 55-65% and hypokinesis inferior myocardium Stress test 01/2017 negative for ischemia, had predominantly fixed apical defect with mild reversability and low normal LV function Echo 11/03/17 - EF 40-45%; Pulmonary hypertension w/ pulm pressure 60-65mmHg Last Edited By: Nicole Currie on Nov 04, 2017 9:36 am Assessment & Plan: 11/01 -appears stable, may consider repeat echo depending on pt's clinical course 11/05/17- Cardiology consult preop (12) Generalized weakness Status: Chronic Assessment & Plan: 11/01 -see above under "at risk for falls (13) Sepsis Status: Acute Assessment & Plan: 10/31 -likely secondary to bilateral PNA 11/06- afebrile, unclear if true pneumonia, 7 day course of antibiotics will be completed, continue if desired after surgery based on surgery recommendations Qualifiers: Qualified Codes: A41.9 - Sepsis, unspecified organism (14) Protein calorie malnutrition Status: Chronic Assessment & Plan: 10/30 -prealbumin 10 in b 10/31 -will recheck in AM 11/01 -prealbumin pending 11/02 prealbumin now 7.5; consider TPN for additional nutrition 11/03/17 - pt has been started on TPN Qualifiers: Qualified Codes: E44.0 - Moderate protein-calorie malnutrition (15) GI bleed Status: Chronic Assessment & Plan: 10/31 -heme positive stools on admission -n chi bleeding noted -CT abd/pelvis in AM 11/02 -abnormal CT, consult to Dr. Contreras 11/04 - Hb generally stable at 7.6; transfuse 2U prbc in anticipation of surgery. Qualifiers: Qualified Codes: K92.2 - Gastrointestinal hemorrhage, unspecified (16) PNA (pneumonia) Status: Acute Qualifiers: (17) Cellulitis of right upper extremity Status: Resolved Assessment & Plan: 11/01 -right elbow with significant edema and redness that was not previously noted -near, but does not appear to include, PICC insertion site -bruising noted and PICC team reports that there was a first attempt made in right arm for PICC placement and that it could be hematoma formation from that; this is certainly a reasonable consideration, however given pt's precarious state overall, will have right PICC pulled, as risk for spread of infection is too high and bacteremia would likely cause significant deterioration, which pt would very likely not recover from -pt with multiple superficial bites from bed bug infestation, and easily could have gotten wound infection from this, as pt was brought in covered in feces and dirt -will have PICC pulled and cultured as a precaution, and placed in other arm -will continue with cefepime for now; if signs of worsening infection noted, will add vancomycin 11/02 -no change in abx for now, pt maintaining on current regimen and no spreading of cellulitis noted; more bruising, favoring possible hematoma from original PICC attempt (18) Bilateral pleural effusion Status: Acute (19) Hypotension Status: Resolved Qualifiers: Qualified Codes: I95.9 - Hypotension, unspecified (20) Hyperphosphatemia Status: Resolved (21) Hypernatremia Status: Acute Assessment & Plan: 11/04/17 - electrolyte adjustment in TPN 11/06- persistent worsening, will stop sodium bicarb and start D5W at 100 mls/hr , recheck in 4 hours (22) DVT prophylaxis Status: Acute Assessment & Plan: 10/31 -chemical prophylaxis currently on hold due to need for transfusion on admission -will likely restart in AM if Hgb remains stable 11/01 -stable Hgb -lovenox with renal dosing Clinical Quality Measures DVT/VTE Risk/Contraindication: Risk Factor Score Per Nursin RFS Level Per Nursing on Admit: 4+=Very High ANTONY VILLARREAL MD Nov 06, 2017 11:20 am
[2017-11-06] MEDS ORDERED: HEParin (CENTRAL IV FLUSH) 500 UNIT/5 ML SYR ONE (11:27)
[2017-11-06] MEDS ORDERED: ceFAZolin 1,000 MG (ANCEF) VIAL ONE (11:47)
[2017-11-06] MEDS ORDERED: PHENYLEPHRINE 100 MCG/ML 10 ML (ANESTHESIA) SYR ONE (11:55)
[2017-11-06] MEDS ORDERED: SEVOFLURANE (ULTANE) 15 ML INHAL SOLN ONE ×13 (11:56→14:28)
[2017-11-06] MEDS ORDERED: metroNIDAZOLE 500MG/100ML IVPB 100 ML IV ONE (12:00)
[2017-11-06] MEDS ORDERED: ceFAZolin INJECTION 1,000 MG in NS (IVPB) 50 ML IV ONE (12:00)
[2017-11-06] MEDS ORDERED: metroNIDAZOLE 500MG/100ML IVPB 100 ML ONE (12:20)
[2017-11-06] MEDS: LACTATED RINGERS 1,000 ML IV PRN ×2 (13:10→14:10)
[2017-11-06] MEDS ORDERED: PHENYLEPHRINE INJ 10 MG/ML (NEO-SYNEPHRINE 1%) ONE (13:59)
--- NOTE | 2017-11-06 14:01 | Progress Note-Post Operative ---
Post-Operative Progess Note Surgeon (s)/Dial Marker (s) Surgeon MIKE OTOOLE MD Dial Marker: dakota helton [employer] PUNCHER Pre-Operative Diagnosis Near obstructing sigmoid diverticular stricture Post-Operative Diagnosis same with adherent small bowel Procedure & Operative Findings Date of Procedure 11/06/17 Procedure Performed/Findings exploratory laparotomy, sigmoid colon and en-block small bowel resection with primary anastamosis, lysis of adhesions(90 minutes), enterorraphy, right subclavian central venous catheter placement. Anesthesia Type GET Estimated Blood Loss Estimated blood loss (mL): 250ml Specimens/Packing Specimens Removed sigmoid colon and en-bloc small bowel. MIKE OTOOLE MD Nov 06, 2017 2:01 pm
[2017-11-06] MEDS ORDERED: GLYCOPYRROLATE 0.2 MG/ML (ROBINUL) 2 ML VIAL ONE (14:07)
[2017-11-06] MEDS ORDERED: NEOSTIGMINE 1 MG/ML 5 ML SYRINGE ONE (14:07)
[2017-11-06] MEDS ORDERED: ROPIVACAINE 5MG/ML 30ML VIAL ONE (14:10)
[2017-11-06] MEDS ORDERED: fentaNYL INJECTION 100 MCG/2 ML AMP IVP PRN (14:15)
[2017-11-06] MEDS ORDERED: ONDANSETRON 4 MG/2 ML (SDV) Z0FRAN IVP PRN ×2 (14:15→15:00)
[2017-11-06] MEDS ORDERED: HYDROcodone/APAP 7.5 MG/325 MG (LORTAB, LORCET PLUS) TABLET PO PRN (14:15)
[2017-11-06] MEDS ORDERED: MEPERIDINE (DEMEROL) INJ 50 MG/ML IVP PRN (15:00)
[2017-11-06] MEDS ORDERED: morphine INJ 10 MG/ML 1ML (SYR OR VIAL) IVP PRN (15:00)
--- NOTE | 2017-11-06 15:17 | Diagnostic Imaging Report ---
INDICATION: Line placement. COMPARISON: 11/06/2017. FINDINGS: There is a right subclavian central venous catheter in place with its tip in the superior vena cava. There is cardiomegaly and moderate central pulmonary venous congestion. There are bibasilar infiltrates and bilateral pleural effusions. There is no pneumothorax. Nasogastric tube is also in place. IMPRESSION: Interval placement of a right subclavian central venous catheter which is in satisfactory position. Bibasilar infiltrates and bilateral pleural effusions. Cardiomegaly and some venous congestion. Dictated by: Dictated on workstation # [id number]
[2017-11-06] MEDS: POTASSIUM ACETATE IV SCH ×9 (16:23)
[2017-11-06] MEDS: LEVOFLOXACIN 750 MG/150 ML IV 150 ML IV SCH (16:23)
[2017-11-06] MEDS: POTASSIUM CHLORIDE IV SCH ×9 (16:23)
[2017-11-06] MEDS: CEFEPIME INJECTION 2,000 MG in NS (IVPB) 50 ML IV SCH (16:23)
[2017-11-06] MEDS: [UNRECOGNIZED DRUG - OTHER] IV SCH ×9 (16:23)
[2017-11-06 16:29] LABS: BUN/CREATININE RATIO 44; CALCIUM 7.5 MG/DL (8.5-10.1); CARBON DIOXIDE 22 MMOL/L (21-32); CHLORIDE 123 MMOL/L (98-107); CREATININE SERUM 0.94 MG/DL (0.60-1.30); GFR ESTIMATED > 60; GLUCOSE 82 MG/DL (70-105); POTASSIUM 4.8 MMOL/L (3.6-5.0); SODIUM 150 MMOL/L (135-145)
[2017-11-06] MEDS: D5W 1000 ML IV SOLUTION 1,000 ML IV SCH ×2 (17:04→23:57)
[2017-11-06] MEDS ORDERED: TPN IV SCH (20:45)
[2017-11-06 22:19] LABS: BUN/CREATININE RATIO 43; CALCIUM 7.6 MG/DL (8.5-10.1); CARBON DIOXIDE 20 MMOL/L (21-32); CHLORIDE 121 MMOL/L (98-107); CREATININE SERUM 1.03 MG/DL (0.60-1.30); GFR ESTIMATED > 60; GLUCOSE 201 MG/DL (70-105); POTASSIUM 4.8 MMOL/L (3.6-5.0); SODIUM 148 MMOL/L (135-145)
[2017-11-07] VITALS (23 sets, daily range): BP systolic 88–122; BP diastolic 56–89
--- NOTE | 2017-11-07 01:47 | OPERATIVE REPORT ---
DATE OF SERVICE: 11/06/2017 ATTENDING PRIMARY GREEN INSPECTOR: [facility]. PREOPERATIVE DIAGNOSIS: Near obstructing diverticular stricture. POSTOPERATIVE DIAGNOSIS: Near obstructing diverticular stricture with encroaching and adherent small bowel, extensive adhesions, reducible ventral abdominal incisional hernia, ascites. No obvious malignancy identified. PROCEDURE: Exploratory laparotomy, lysis of adhesions, sigmoid colon resection with en bloc, small bowel resection with anastomosis, enterorrhaphy, primary repair ventral abdominal incisional hernia, placement of right subclavian central venous catheter. SURGEON: Anish Contreras MD. NUCLEAR DESIGN ENGINEER: Sherwin Sosa APRN. ANESTHESIA: General endotracheal. ESTIMATED BLOOD LOSS: 250 mL. FINDINGS: Extensive adhesions from previous midline laparotomy incision. The cause of his obstruction was identified from previous black ink marking; however, this was also palpable. It appeared to be benign diverticular stricture, which may or may not have perforated at some point with adherent small bowel. The sigmoid colon as well as small bowel segment was excised and reanastomosed. Small reducible ventral abdominal incisional hernia. DISPOSITION: The patient tolerated the procedure well. INDICATIONS: The patient is a 72-year-old male known to us. He has had episodes of abdominal distention and intermittent episodes of left lower quadrant abdominal pain. He underwent a colonoscopy and was found to have diverticulosis. He had another colonoscopy done by another surgeon where a polyp was identified, biopsied and found to be benign. He was admitted for diverticulitis in 03/2017 as well as partial colonic obstruction. A CT scan was performed, which did show similar findings. He also developed abdominal distention and nausea and vomiting as well as dehydration. He was medically managed at that time and he did undergo an EGD as well as a repeat attempted colonoscopy. EGD showed reflux esophagitis class C, esophageal candidiasis and a small hiatal hernia approximately 1.5 cm in size. There was an intact gastric pouch and a widely patent Billroth II gastrojejunal anastomosis. Colonoscopy showed chronic stage I external and internal hemorrhoids and there was a near obstructing lesion of the rectosigmoid junction and we were unable to pass the scope through this area. Multiple biopsies were taken which were benign. We can continue conservative management and TPN; however, during that hospital admission, he did develop shortness of breath and was found to have bilateral small pulmonary emboli and treated with Lovenox. Due to his recent pulmonary embolism as well as anticoagulation as well as multiple medical comorbidities, the patient elected to proceed with conservative therapy and await for reevaluation and elective colon, sigmoid resection. He presented again with feelings of fatigue and abdominal distention. Again, a CT scan was performed, which did show dilatation of the colon and the area of stricture of the sigmoid colon. He was again admitted, placed on IV antibiotics and treated for his other medical conditions and correction of electrolytes. After admission, he did feel better and did have multiple loose bowel movements and he was able to also tolerate a diet. Due to the progression and history of a strictured portion of his colon as well as inability to rule out malignancy and pending full colonic obstruction, the risks and benefits of surgery explained to the patient as well as the high risk nature. The family was in full understanding as well as the patient wanted to proceed with surgery. DESCRIPTION OF PROCEDURE: The patient was brought to the operating room, laid supine on the table. After adequate IV pain and sedative medications and general endotracheal intubation, the chest and neck were prepped and draped in standard surgical fashion. We first proceeded with placement of right subclavian central venous catheter. The right subclavian vein was then cannulated with drawing of venous blood. The guidewire was then inserted without any resistance. The cannulating needle removed and a small skin incision made using a 11 blade. A tract was then created using a venous dilator. A triple lumen central venous catheter was then placed over the guidewire using Seldinger technique. The guidewire removed and all three ports kevyn venous blood and saline pushed in without any resistance. The catheter was then sutured to the skin using 3-0 silk sutures and then covered with a sterile Op-Site. We then proceeded with placing the patient in modified lithotomy position and the abdomen and perineum were prepped and draped in standard surgical fashion. We first proceeded with a lower midline laparotomy incision using a 10 blade. The subcutaneous tissue was then opened using electrocautery. The fascia was then opened using electrocautery and the peritoneal lining was then opened using Metzenbaum scissors entering the peritoneal cavity. The peritoneal lining and fascia were then opened to the length of the skin incision using electrocautery under direct visualization. A 4-quadrant abdominal exploration was performed. There was a significant amount of clear ascites identified, which was suctioned out. There was no obvious adenopathy. There were also extensive adhesions from his previous laparotomy. There were no ischemic changes throughout the small bowel or colon. Upon further exploration, it appeared that he did have a diverticular stricture, which may have perforated at some point with adherent omentum as well as densely adherent small bowel loops. We then proceeded with extensive lysis of adhesions which took approximately 90 minutes to free up some of the small bowel loops, which were adherent to the diverticular stricture. A small enterotomy was identified and enterorrhaphy was performed using full thickness 3-0 nylon interrupted sutures. One loop of small bowel was densely adherent and that could not be dissected off of the diverticular stricture. We then proceeded with en bloc resection of this loop of small bowel. The mesentery was scored proximally, distally with electrocautery. We then proceeded with a staple and transection of the bowel using a SHEILA 360 mm stapler with 3.5 mm thickness loads. The mesentery was then cut and cauterized using Sonicision. The proximal and distal ends were then tagged. We then proceeded with sigmoid colon resection. We first proceeded with distal resection using the same SHEILA stapler and proceeded proximally to an area that appeared to be well perfused as well as the least amount of edema of the descending colon and proceeded to staple and transect with a SHEILA stapler. The specimen was then removed and sent to pathology. Before this, the mesoappendix was dissected using Sonicision identifying and sparing the left ureter. Good hemostasis was also observed. We then proceeded with small bowel anastomosis. We proceeded with a [id number]-jw-[id number] anastomosis using the same SHEILA 60 stapler with 3.5 mm thickness loads. The small bowel loops were aligned and sutured on the antimesenteric border using 3-0 silk sutures. The staple ends were then cut with Sarah scissors and we proceeded with the staple anastomosis. The open end was then reapproximated using 3-0 silk interrupted sutures. This end was then stapled using the same stapler with visualization of good hemostasis. The mesentery was then reapproximated using running 3-0 Vicryl suture. In a similar manner, we then proceeded with a stapled [id number]-rz-wlld anastomosis of the descending colon to the sigmoid colon remnant. The two ends were placed side to side and sutured along the antimesenteric border for stabilization using 3-0 silk sutures. The staple ends were then cut at the corners using Sarah scissors and through these openings we proceeded with our stapled anastomosis using the SHEILA 60 stapler. The open end was then reapproximated using interrupted 3-0 silk sutures and stapled together with the same stapler. Good hemostasis was observed. The peritoneal cavity and the pelvis was then copiously irrigated with 2 liters of warm saline. Good hemostasis was observed. A 19-Kinyarwanda Josias-Castaneda drain was then placed into the pelvis and near the anastomosis and brought up along the small incision of the left upper abdominal quadrant. The fascia and peritoneal lining were then closed proximally and distally using #1 looped PDS suture and tied in the middle. During this process the subcutaneous tissue was dissected off the area of the hernia to good strong fascia. The fascia was when sutured together vertically with the the running #1PDS suture. The skin edges were then approximated using morales. The wound was then cleaned and covered with a sterile island dressing. The patient tolerated the procedure well. We will send him back to the ICU and await bowel function before oral alimentation. We will continue with the TPN. He will also need to proceed with strict DVT prophylaxis with calf SCDs, early ambulation as well as restarting Lovenox later today. Job ID: [id number] DocumentID: [id number] Dictated Date: 11/06/2017 14:23:07 Civil Engineering Director Date: 11/07/2017 01:46:39 Dictated By: ANISH CONTRERAS MD [facility]
[2017-11-07] MEDS ORDERED: ALBUMIN 5% 12.5 GM/250 ML 250 ML IV SCH (02:00)
[2017-11-07] MEDS ORDERED: ALBUMIN 5% 12.5 GM/250 ML 500 ML IV ONE (02:45)
[2017-11-07 04:41] LABS: BASOPHILS % (AUTO) 0 % (0-10); EOSINOPHILS % (AUTO) 0 % (0-10); HEMATOCRIT 25 % (40-54); HEMOGLOBIN 8.1 G/DL (13.3-17.7); LYMPHOCYTES # (AUTO) 0.3 X 10^3 (1.0-4.0); LYMPHOCYTES % (AUTO) 4 % (12-44); MEAN CORPUSCULAR HEMOGLOBIN 32 PG (25-34); MEAN CORPUSCULAR HGB CONC 33 G/DL (32-36); MEAN CORPUSCULAR VOLUME 98 FL (80-99); MONOCYTES # (AUTO) 1.4 X 10^3 (0.0-1.0); MONOCYTES % (AUTO) 14 % (0-12); NEUTROPHILS # (AUTO) 8.1 X 10^3 (1.8-7.8); NEUTROPHILS % (AUTO) 82 % (42-75); PLATELET COUNT 108 10^3/uL (130-400); RED BLOOD COUNT 2.54 10^6/uL (4.35-5.85); RED CELL DISTRIBUTION WIDTH 27.3 % (10.0-14.5); WHITE BLOOD COUNT 9.8 10^3/uL (4.3-11.0)
[2017-11-07 04:50] LABS: BUN/CREATININE RATIO 44; CALCIUM 7.9 MG/DL (8.5-10.1); CARBON DIOXIDE 18 MMOL/L (21-32); CHLORIDE 121 MMOL/L (98-107); CREATININE SERUM 1.09 MG/DL (0.60-1.30); GFR ESTIMATED > 60; GLUCOSE 249 MG/DL (70-105); MAGNESIUM 1.8 MG/DL (1.8-2.4); PHOSPHORUS 3.7 MG/DL (2.3-4.7); POTASSIUM 4.5 MMOL/L (3.6-5.0); SODIUM 149 MMOL/L (135-145)
[2017-11-07] MEDS: POTASSIUM CL 10MEQ/50ML IVPB 50 ML IV SCH (04:57)
[2017-11-07] MEDS: MAGNESIUM 1 GM/100 ML IVPB 100 ML IV SCH (04:58)
[2017-11-07] MEDS: CATHETER FLUSH 10 ML SYR IV SCH ×3 (04:59→22:31)
[2017-11-07] MEDS: KCL 20 MEQ TAB (K-DUR) PO SCH (04:59)
--- NOTE | 2017-11-07 08:34 | Diagnostic Imaging Report ---
INDICATION: Severe anemia. Hypokalemia. COMPARISON: 11/06/2017. FINDINGS: A single frontal radiographic view of the chest was obtained and again demonstrates large bilateral pleural effusions and associated bibasilar airspace disease, left greater than right. There is no pneumothorax. Overall, the aeration appears stable. The cardiac silhouette is stable. The pulmonary vasculature is mildly prominent. A right-sided subclavian central venous catheter is seen with the tip in the low SVC. The gastric tube has since been removed. The bony structures are stable. IMPRESSION: 1. Stable large bilateral effusions with associated bibasilar airspace disease, left greater than right. 2. Pulmonary vascular congestion. Dictated by: Dictated on workstation # [id number]
[2017-11-07] MEDS: POLYETHYLENE GLYCOL 17 GM (MIRALAX) PACK PO SCH ×2 (09:34→21:17)
[2017-11-07] MEDS: PANTOPRAZOLE 40 MG/10 ML (PROTONIX) VIAL IV SCH (09:34)
[2017-11-07] MEDS: IRON POLYSAC 150 MG CAP (NIFEREX) PO SCH ×2 (09:34→21:27)
[2017-11-07] MEDS: ASPIRIN E.C. 81 MG (ECOTRIN) TAB PO SCH (09:34)
[2017-11-07] MEDS: LEVOFLOXACIN 750 MG/150 ML IV 150 ML IV SCH (09:34)
[2017-11-07] MEDS: D5W 1000 ML IV SOLUTION 1,000 ML IV SCH (12:12)
[2017-11-07] MEDS: CEFEPIME INJECTION 2,000 MG in NS (IVPB) 50 ML IV SCH (12:12)
--- NOTE | 2017-11-07 14:03 | Cardiology Progress Note ---
Subjective Date Seen by Provider: Nov 07, 2017 Time Seen by Provider: 14:01 Subjective/Events-last exam Patient is laying down in bed, denied any chest pain or shortness of breath. Denied any palpitation, still complaining of fatigue and loss of energy recovering from surgery Review of Systems General: No Chills, No Night Sweats; Fatigue, Malaise; No Appetite, No Other HEENT: No Head Aches, No Visual Changes, No Eye Pain, No Ear Pain, No Dysphasia , No Sinus Congestion, No Post Nasal Drip, No Sore Throat, No Other Pulmonary: No Dyspnea, No Cough, No Pleuritic Chest Pain, No Other Cardiovascular: Edema; No: Chest Pain, Palpitations, Orthopnea, Paroxysmal Noc. Dyspnea, Lt Headedness, Other Objective-Cardiology Exam Last Set of Vital Signs Vital Signs 11/07/17 11/07/17 12:13 13:00 Temp 99.0 Pulse 93 Resp 18 B/P (MAP) 99/78 (85) Pulse Ox 94 O2 Delivery Room Air Capillary Refill : Less Than 3 Seconds I&O Intake and Output 11/07/17 00:00 Intake Total 5620 ml Output Total 1815 ml Balance 3805 ml Intake Oral 50 ml IV Total 5570 ml Output Urine Total 1505 ml Drainage Total 310 ml # Bowel Movements 2 General: Alert, No Acute Distress HEENT: Atraumatic, EOMI, Mucous Memb Moist/Parole Neck: Supple, No Thyromegaly Lungs: Clear to Auscultation, Normal Air Movement Heart: Regular Rate (frequent PVC), Normal S1, Normal S2 Abdomen: Other (recovering from surgery) Extremities: No Clubbing, No Cyanosis Skin: Other (upper and lower extremity edema) Neuro: Normal Speech Psych/Mental Status: Mental Status NL Results Lab Laboratory Tests 11/06/17 16:00 11/06/17 21:45 11/07/17 04:20 A/P-Cardiology Admission Diagnosis Colon Stricture Chest pain nonspecific etiology Coronary artery disease Congestive heart failure Assessment/Plan Colonic/sigmoid stricture, abdominal distention, symptomatic, had multiple biopsies in the past, status post surgical repair and lysis of adhesions. Recovering slowly. Chest pain nonspecific etiology, still having occasional episodes on and off, cardiac catheterization was done in August 2014 showing mild disease nonobstructive disease. Unlikely to be cardiac in nature. had a stress test done on February 09, 2017 showing no significant ischemia Coronary artery disease, last cardiac catheterization was done on September 16, 2014 which showed mild coronary artery disease nonobstructive disease. Continue medical therapy Congestive heart failure, last echocardiogram showed ejection fraction 40-45 percent. Anasarca with poor nutritional state. Borderline hypotensive, cannot tolerate aggressive diuresis at this time. Electrolyte imbalance with hypokalemia, hypomagnesemia, hypo-calcemic, followed and managed by primary care physician Anemia, multifactorial, followed and managed by Dr. Hernandez History of Superficial venous thrombosis Mild bilateral carotid stenosis, last ultrasound was done in March 2016. Continue to monitor. Hypertension, continue to monitor blood pressure Hyperlipidemia, at this time he is at poor nutritional status. Followed and managed by primary care physician Bedbug infestation Generalized weakness and debility, poor oral intake. Bilateral pulmonary infiltrate and bilateral pulmonary edema, followed and managed by primary care physician Preoperative cardiac evaluation, patient is considered at intermediate risk for perioperative cardiovascular complications, decision regarding the surgery, risks versus benefit is deferred to the surgeon Clinical Quality Measures DVT/VTE Risk/Contraindication: Risk Factor Score Per Nursin RFS Level Per Nursing on Admit: 4+=Very High NATASHA BILLINGSLEY MD Nov 07, 2017 14:03
--- NOTE | 2017-11-07 14:08 | Physical Therapy Daily Note ---
PT Daily Note-Current Subjective Pt laying Supine in bed upon arrival. Pt reports feeling a little better today. Pt agrees to PT for Supine Ex. Pain Comment: Pt shows through facial grimaces during Ex but not rated. Mental Status Patient Orientation: Person, Place, Situation Attachments: Cheng Catheter, IV Transfers Functional [place] Measure 0=Not Assessed/NA 4=Minimal Assistance 1=Total Assistance 5=Supervision or Setup 2=Maximal Assistance 6=Modified [place] 3=Moderate Assistance 7=Complete IndependenceIRFPAI Quality Coding Scale 6 Independent with activity with or without an assistive device 5 Patient requires set up or clean up by helper. Patient completes activity by themselves 4 Supervision or touching assist (CGA). Cable provide cues , steadying assist 3 The helper provides less than half the effort to complete the activity 2 The helper provides more than half the effort to complete the activity 1 Dependent. The helper does all the effort to complete an activity 7 Patient refused to complete or attempt activity 9 The patient did not perform the activity before the current illness or injury 88 Not attempted due to Medical conditions or safety concerns Weight Bearing Right Lower Extremity: Right Full Weight Bearing Left Lower Extremity: Left Full Weight Bearing Exercises Supine Ex: Ankle pumps, Quad Set, Glut sets, Heel Slides, Hip abd/add Supine Reps: 15 Treatments Pt completes Supine Ex in bed. Pt takes a couple rest breaks as needed. Dr Ayala checks on pt during tx. Pt resting at end of tx with all needs met, including call light in hand. Assessment Current Status: Good Progress Pt will continue to improve as pt heals. PT Short Term Goals Short Term Goals Time Frame: Nov 09, 2017 Transfers (B,C,W/C) (FIM): 4 Gait (FIM): 1 Gait Distance Comment: 20' Gait Level of Assist: 4 Gait Assistive Device: FWW PT Plan Problem List Problem List: Activity Tolerance, Functional Strength, Safety, Balance, Gait, Transfer Treatment/Plan Treatment Plan: Continue Plan of Care Treatment Plan: Bed Mobility, Education, Functional Activity Perri, Functional Strength, Gait, Safety, Therapeutic Exercise, Transfers Treatment Duration: Nov 09, 2017 Frequency: 6 times per week Estimated Hrs Per Day: .25 hour per day (15-30') Patient and/or Family Agrees t: Yes Safety Risks/Education Patient Education: Transfer Techniques, Correct Positioning, Safety Issues Teaching Recipient: Patient Teaching Methods: Discussion Response to Teaching: Verbalize Understanding Time/GCodes Time In: 1310 Time Out: 1333 Total Billed Treatment Time: 23 Total Billed Treatment 1, EX x2 (23m) G Codes Necessary: JENNIFER Ellis TACTICAL DEBRIEFER Nov 07, 2017 14:08
--- NOTE | 2017-11-07 14:42 | Progress Note (SOAP) ---
Subjective Subjective/Events-last exam Afebrile. Blood pressure lower after surgery. He states he is feeling okay, but tired. Review of Systems Date Seen by Provider: Nov 07, 2017 Time Seen by Provider: 11:50 Objective Exam Last Set of Vital Signs Vital Signs Date Time Temp Pulse Resp B/P (MAP) Pulse Ox O2 Delivery O2 Flow Rate FiO2 11/07/17 13:00 93 18 99/78 (85) 94 Room Air 11/07/17 12:13 99.0 Capillary Refill : Less Than 3 Seconds I&O Intake and Output 11/07/17 00:00 Intake Total 5620 ml Output Total 1815 ml Balance 3805 ml Intake Oral 50 ml IV Total 5570 ml Output Urine Total 1505 ml Drainage Total 310 ml # Bowel Movements 2 General: No Acute Distress, Other (drowsy) Lungs: Clear to Auscultation, Normal Air Movement Heart: Regular Rate, No Murmurs Abdomen: Normal Bowel Sounds Neuro: Normal Speech Results/Procedures Lab Laboratory Tests 11/06/17 16:00: Sodium Level 150H, Potassium Level 4.8, Chloride Level 123H, Carbon Dioxide Level 22, Anion Gap 5, Blood Urea Nitrogen 41H, Creatinine 0.94, Estimat Glomerular Filtration Rate > 60, BUN/Creatinine Ratio 44, Glucose Level 82, Calcium Level 7.5L 11/06/17 21:45: Sodium Level 148H, Potassium Level 4.8, Chloride Level 121H, Carbon Dioxide Level 20L, Anion Gap 7, Blood Urea Nitrogen 44H, Creatinine 1.03, Estimat Glomerular Filtration Rate > 60, BUN/Creatinine Ratio 43, Glucose Level 201H, Calcium Level 7.6L 11/07/17 04:20: Sodium Level 149H, Potassium Level 4.5, Chloride Level 121H, Carbon Dioxide Level 18L, Anion Gap 10, Blood Urea Nitrogen 48H, Creatinine 1.09, Estimat Glomerular Filtration Rate > 60, BUN/Creatinine Ratio 44, Glucose Level 249H, Calcium Level 7.9L, White Blood Count 9.8, Red Blood Count 2.54L, Hemoglobin 8.1L, Hematocrit 25L, Mean Corpuscular Volume 98, Mean Corpuscular Hemoglobin 32 , Mean Corpuscular Hemoglobin Concent 33, Red Cell Distribution Width 27.3H, Platelet Count 108L, Mean Platelet Volume , Neutrophils (%) (Auto) 82H, Lymphocytes (%) (Auto) 4L, Monocytes (%) (Auto) 14H, Eosinophils (%) (Auto) 0, Basophils (%) (Auto) 0, Neutrophils # (Auto) 8.1H, Lymphocytes # (Auto) 0.3L, Monocytes # (Auto) 1.4H, Eosinophils # (Auto) 0.0, Basophils # (Auto) 0.0, Phosphorus Level 3.7, Magnesium Level 1.8 Microbiology 11/01/17 Blood Culture - Final, Complete No growth 11/05/17 C. difficile GDH Antigen & Toxins - Final, Complete 10/30/17 MRSA Screen - Final, Complete MRSA not isolated Radiology Date of Exam: 10/31/17 CHEST 1 VIEW, AP/PA ONLY INDICATION: Anemia and renal failure and hypokalemia. Frontal chest obtained at 3:41 a.m. and compared to 10/30/2017 FINDINGS: The heart is enlarged and appears similar to the prior study. The right-sided PICC line is unchanged. There is bibasilar infiltrate which is unchanged compared to the prior study. There is a small amount of pleural fluid in the left costophrenic angle. This appears mildly decreased compared to yesterday. IMPRESSION: Cardiomegaly. Unchanged bibasilar infiltrates. Mild decrease in left pleural fluid compared to the prior study. Assessment/Plan Assessment/Plan (1) Sigmoid stricture Status: Chronic Assessment & Plan: 10/31 -biopsied by Dr. Contreras in Nov -not a surgical candidate in past given his overall poor health -consider CT scan to evaluate if stricture has become obstructing 11/02 -abnormal CT abd/pelvis although difficulty defining many structures due to lack of contrast -consult to Dr. Contreras, who has seen pt in the past for this 11/03/17 - Dr. Contreras plans to take patient to OR Sunday or Sunday; Dr. Oglesby covering this weekend. 11/06/17- plan for surgery today 11/07/17- POD#1 post sigmoid resection, small bowel resection with anastomosis, enterorraphy (2) Hypokalemia Status: Resolved Assessment & Plan: 10/30- 1.5 on admission, aggressive replacement 10/31 -1.3 this AM -replace with additional 80 mEq -recheck this afternoon 11/01 -2.2 this AM -continue replacement -consider renal tubular acidosis as potential cause; possibly secondary to autoimmune hepatitis as pt has elevated liver enzymes and no other obvious cause , but clearly is spilling potassium at the renal level; will add sodium bicarb to see if this helps to correct potassium further -recheck this afternoon and continue replacement as needed 11/02 3.6 -- NORMALIZED -will continue to need daily supplementation, and additional replacement if calcium is going to be administered 11/03 - K down to 2.6 - replaced w/ 50mEq KCL 11/04 - K 3.2 - replaced this am 11/05 - Replaced again this am, recheck mid-day to try to catch drop sooner 11/06- low again this am, in spite of over 100 mEq yesterday. Suspect due to lower GI losses and poor intake. RTA less likely given he has not had anion gap acidosis and sodium bicarb has not helped, will d/c for now and continue to replace K. (3) Hypomagnesemia Status: Resolved Assessment & Plan: 10/30 -undetectable on admission -4 grams 11/05 replacing daily as needed (4) Hypocalcemia Status: Resolved Assessment & Plan: 10/30 -4.4 on admission 10/31 -4.5 this AM -difficult to replace based on pt's other severe electrolyte abnormalities, mainly his potassium -will likely need to aggressively replace his potassium and bring it to a more normal level before attempting additional calcium replacement, as it is counterproductive to attempt replacement of both at once 11/01 -5.1 this AM -continue to feel that it is more imperative that pt's potassium be replaced before attempting to correct his calcium, and doing both at once is counterproductive -given 1 dose overnight by eICU -will continue to aggressively attempt to bring potassium to a more normal range , then attempt calcium correction with continued potassium replacement, as correcting one before the other seems like it may be more successful in the long run, and the previous efforts to correct both at once have led to minimal success in correction of either at this point 11/02 -improved, now 6.5 -now that potassium has normalized, calcium can be corrected more easily, but additional potassium will be needed if calcium is supplemented to keep him in normal range 11/05/17 continues to improve- normal based on correction for albumin (5) Acute renal failure Status: Resolved Assessment & Plan: 10/30 -Cr 2.54 on admission -GFR 25 -BUN 60 6/19- continues to improve with fluids Qualifiers: Qualified Codes: N17.9 - Acute kidney failure, unspecified (6) Hypoalbuminemia Status: Acute Assessment & Plan: 10/30 1.8 11/02 -will replace q8h x24 hours 10/30 1.8 11/02 -will replace q8h x24 hours 11/06 chronic poor nutrition, on TPN now and taking oral (7) Severe anemia Status: Acute Assessment & Plan: 10/30 6.4 on admission transfused 2 units PRBC 11/04/17 - 2 U prbc ordered for today; Hb 7.6 (8) Thrombocythemia Status: Chronic Assessment & Plan: Consult to Dr. Hernandez 11/01- platelets currently low -plan is to hold hydroxyurea for some time -will continue to attempt to correct electrolytes -Dr. Hernandez availble if needed, will check on patient on Sunday (9) History of pulmonary embolism Status: Chronic Permanent Comment: 03/2017 Last Edited By: Antony Villarreal on Jun 22, 2017 2: 28 pm Assessment & Plan: 10/31 -home eliquis on hold today -will likely restart tomorrow if Hgb remains stable 11/01 -pt appears not to have been taking his eliquis at home -renal dosing lovenox started today (10) At risk for falls Status: Chronic Assessment & Plan: 10/31 -pt's living conditions not suitable for him to return home; will need placement at discharge 11/01 -pt spoke with social work and reported is willing to go to facility at discharge; they have begun seeking potential placement -pt reports his biggest goal is "to be clean" -expect that patient will do quite well with placement in a skilled facility where he is taken care of -family informed at admission that patient would not be able to return home, as he was not being adequately cared for, they were - for the most part - in agreement, son had some reservations because he did not think patient would be willing to go; discussed with son that patient would require placement at discharge and could not return home 11/02 -PT to eval and treat (11) Chronic combined systolic and diastolic CHF (congestive heart failure) Status: Chronic Permanent Comment: Cardiac Cath 2014 with nonischemic cardiomyopathy and EF 40% Echocardiogram 01/2017 with aortic root mildly dilated, grade 1 diastolic dysfunction, EF 55-65% and hypokinesis inferior myocardium Stress test 01/2017 negative for ischemia, had predominantly fixed apical defect with mild reversability and low normal LV function Echo 11/03/17 - EF 40-45%; Pulmonary hypertension w/ pulm pressure 60-65mmHg Last Edited By: Nicole Currie on Nov 04, 2017 9:36 am Assessment & Plan: 11/01 -appears stable, may consider repeat echo depending on pt's clinical course 11/05/17- Cardiology consult preop (12) Generalized weakness Status: Chronic Assessment & Plan: 11/01 -see above under at risk for falls (13) Sepsis Status: Acute Assessment & Plan: 10/31 -likely secondary to bilateral PNA 11/06- afebrile, unclear if true pneumonia, 7 day course of antibiotics will be completed, continue if desired after surgery based on surgery recommendations Qualifiers: Qualified Codes: A41.9 - Sepsis, unspecified organism (14) Protein calorie malnutrition Status: Chronic Assessment & Plan: 10/30 -prealbumin 10 in Jun 26 -will recheck in AM 11/01 -prealbumin pending 11/02 prealbumin now 7.5; consider TPN for additional nutrition 11/03/17 - pt has been started on TPN Qualifiers: Qualified Codes: E44.0 - Moderate protein-calorie malnutrition (15) GI bleed Status: Chronic Assessment & Plan: 10/31 -heme positive stools on admission -n chi bleeding noted -CT abd/pelvis in AM 11/02 -abnormal CT, consult to Dr. Contreras 11/04 - Hb generally stable at 7.6; transfuse 2U prbc in anticipation of surgery. Qualifiers: Qualified Codes: K92.2 - Gastrointestinal hemorrhage, unspecified (16) PNA (pneumonia) Status: Acute Qualifiers: (17) Cellulitis of right upper extremity Status: Resolved Assessment & Plan: 11/01 -right elbow with significant edema and redness that was not previously noted -near, but does not appear to include, PICC insertion site -bruising noted and PICC team reports that there was a first attempt made in right arm for PICC placement and that it could be hematoma formation from that; this is certainly a reasonable consideration, however given pt's precarious state overall, will have right PICC pulled, as risk for spread of infection is too high and bacteremia would likely cause significant deterioration, which pt would very likely not recover from -pt with multiple superficial bites from bed bug infestation, and easily could have gotten wound infection from this, as pt was brought in covered in feces and dirt -will have PICC pulled and cultured as a precaution, and placed in other arm -will continue with cefepime for now; if signs of worsening infection noted, will add vancomycin 11/02 -no change in abx for now, pt maintaining on current regimen and no spreading of cellulitis noted; more bruising, favoring possible hematoma from original PICC attempt (18) Bilateral pleural effusion Status: Acute (19) Hypotension Status: Resolved Qualifiers: Qualified Codes: I95.9 - Hypotension, unspecified (20) Hyperphosphatemia Status: Resolved (21) Hypernatremia Status: Acute Assessment & Plan: 11/04/17 - electrolyte adjustment in TPN 11/06- persistent worsening, will stop sodium bicarb and start D5W at 100 mls/hr , recheck in 4 hours 11/07- improved to 149 with D5W yesterday, per pharmacy will add free water at 50 ml/hr in TPN (22) DVT prophylaxis Status: Acute Assessment & Plan: 10/31 -chemical prophylaxis currently on hold due to need for transfusion on admission -will likely restart in AM if Hgb remains stable 11/01 -stable Hgb -lovenox with renal dosing Clinical Quality Measures DVT/VTE Risk/Contraindication: Risk Factor Score Per Nursin RFS Level Per Nursing on Admit: 4+=Very High ANTONY VILLARREAL MD Nov 07, 2017 2:42 pm
--- NOTE | 2017-11-07 16:57 | Progress Note (SOAP) ---
Subjective Date Seen by Provider: Nov 07, 2017 Time Seen by Provider: 16:00 Subjective/Events-last exam doing ok. pain controlled. NGT pulled last night. no abdominal distention, no nausea/vomiting. having multiple loose stools. Objective Exam Vital Signs Date Time Temp Pulse Resp B/P (MAP) Pulse Ox O2 Delivery O2 Flow Rate FiO2 11/07/17 16:16 98.1 11/07/17 16:00 93 12 114/79 (91) 94 Room Air 11/07/17 15:00 94 13 122/81 (95) 95 Room Air 11/07/17 14:00 91 15 108/72 (84) 96 Room Air 11/07/17 13:00 93 18 99/78 (85) 94 Room Air 11/07/17 13:00 89 11/07/17 12:13 99.0 Room Air 11/07/17 12:00 82 13 104/89 (94) 92 Room Air 11/07/17 11:00 93 28 109/88 (95) 97 Room Air 11/07/17 10:00 90 13 97/63 (74) 96 Room Air 11/07/17 09:00 106 24 113/62 (79) 100 Room Air 11/07/17 08:12 99.1 Room Air 11/07/17 08:00 85 15 98/56 (70) 98 Room Air 11/07/17 07:01 80 11/07/17 07:00 77 11 101/63 (76) 99 Room Air 11/07/17 06:00 89 18 91/66 (74) Room Air 11/07/17 05:00 78 17 98/61 (73) Room Air 11/07/17 04:00 70 13 97/58 (71) 99 Room Air 11/07/17 04:00 99 Room Air 11/07/17 03:00 65 13 102/62 (75) 99 Room Air 11/07/17 02:00 72 10 88/57 (67) 100 Room Air 11/07/17 01:00 78 11/07/17 01:00 78 10 88/70 (76) 98 Room Air 11/07/17 00:00 99 Room Air 11/07/17 00:00 69 15 97/65 (76) 100 Room Air 11/06/17 23:00 70 15 96/78 (84) 97 Room Air 11/06/17 22:00 71 15 92/61 (71) 97 Room Air 11/06/17 21:00 66 14 105/72 (83) 100 Room Air 11/06/17 20:00 67 14 109/78 (88) 97 Room Air 11/06/17 20:00 99 Room Air 11/06/17 19:00 97.3 68 16 109/87 (94) 98 Room Air 11/06/17 19:00 66 11/06/17 18:00 67 14 102/72 (82) 100 Room Air 11/06/17 17:00 53 8 105/64 (78) 97 Room Air I & O 11/07/17 07:00 Intake Total 4560 ml Output Total 1875 ml Balance 2685 ml Capillary Refill : Less Than 3 Seconds General Appearance: No Apparent Distress HEENT: PERRL/EOMI Neck: Full Range of Motion Respiratory: Chest Non Tender, Normal Breath Sounds Cardiovascular: Regular Rate, Rhythm Gastrointestinal: soft, tenderness, other (wound clean/dry, minimal SS drain output) Extremity: Normal Capillary Refill Neurologic/Psychiatric: Alert, Oriented x3 Skin: Normal Color Lymphatic: No Adenopathy Results Lab Laboratory Tests 11/06/17 21:45: Sodium Level 148H, Potassium Level 4.8, Chloride Level 121H, Carbon Dioxide Level 20L, Anion Gap 7, Blood Urea Nitrogen 44H, Creatinine 1.03, Estimat Glomerular Filtration Rate > 60, BUN/Creatinine Ratio 43, Glucose Level 201H, Calcium Level 7.6L 11/07/17 04:20: Sodium Level 149H, Potassium Level 4.5, Chloride Level 121H, Carbon Dioxide Level 18L, Anion Gap 10, Blood Urea Nitrogen 48H, Creatinine 1.09, Estimat Glomerular Filtration Rate > 60, BUN/Creatinine Ratio 44, Glucose Level 249H, Calcium Level 7.9L, White Blood Count 9.8, Red Blood Count 2.54L, Hemoglobin 8.1L, Hematocrit 25L, Mean Corpuscular Volume 98, Mean Corpuscular Hemoglobin 32 , Mean Corpuscular Hemoglobin Concent 33, Red Cell Distribution Width 27.3H, Platelet Count 108L, Mean Platelet Volume , Neutrophils (%) (Auto) 82H, Lymphocytes (%) (Auto) 4L, Monocytes (%) (Auto) 14H, Eosinophils (%) (Auto) 0, Basophils (%) (Auto) 0, Neutrophils # (Auto) 8.1H, Lymphocytes # (Auto) 0.3L, Monocytes # (Auto) 1.4H, Eosinophils # (Auto) 0.0, Basophils # (Auto) 0.0, Phosphorus Level 3.7, Magnesium Level 1.8 Microbiology 11/01/17 Blood Culture - Final, Complete No growth 11/05/17 C. difficile GDH Antigen & Toxins - Final, Complete 10/30/17 MRSA Screen - Final, Complete MRSA not isolated Assessment/Plan Assessment/Plan Assess & Plan/Chief Complaint sigmoid diverticular stricture s/p sigmoid colectomy and en-bloc small bowel resection with anastomosis. having bowel function. no nausea/vomiting or abd distention. clear liquid diet. restart lovenox. PT and ambulate as much as possible. continue TPN due to significant malnutrition. Clinical Quality Measures DVT/VTE Risk/Contraindication: Risk Factor Score Per Nursin RFS Level Per Nursing on Admit: 4+=Very High MIKE OTOOLE MD Nov 07, 2017 4:57 pm
[2017-11-07] MEDS ORDERED: [UNRECOGNIZED DRUG - OTHER] IV SCH ×10 (17:00)
[2017-11-07] MEDS ORDERED: POTASSIUM CHLORIDE IV SCH ×10 (17:00)
[2017-11-07] MEDS ORDERED: POTASSIUM ACETATE IV SCH ×10 (17:00)
[2017-11-07] MEDS: ENOXAPARIN 40 MG/0.4 ML (LOVENOX) SYR SC SCH (21:27)
[2017-11-07 22:10] LABS: BUN/CREATININE RATIO 49; CALCIUM 8.2 MG/DL (8.5-10.1); CARBON DIOXIDE 21 MMOL/L (21-32); CHLORIDE 122 MMOL/L (98-107); CREATININE SERUM 0.97 MG/DL (0.60-1.30); GFR ESTIMATED > 60; GLUCOSE 138 MG/DL (70-105); SODIUM 150 MMOL/L (135-145)
[2017-11-08] VITALS (20 sets, daily range): BP systolic 100–139; BP diastolic 60–102
[2017-11-08 04:35] LABS: BASOPHILS % (AUTO) 0 % (0-10); EOSINOPHILS % (AUTO) 0 % (0-10); HEMATOCRIT 23 % (40-54); HEMOGLOBIN 7.5 G/DL (13.3-17.7); LYMPHOCYTES # (AUTO) 0.9 X 10^3 (1.0-4.0); LYMPHOCYTES % (AUTO) 8 % (12-44); MEAN CORPUSCULAR HEMOGLOBIN 32 PG (25-34); MEAN CORPUSCULAR HGB CONC 32 G/DL (32-36); MEAN CORPUSCULAR VOLUME 99 FL (80-99); MONOCYTES # (AUTO) 1.7 X 10^3 (0.0-1.0); MONOCYTES % (AUTO) 15 % (0-12); NEUTROPHILS # (AUTO) 8.9 X 10^3 (1.8-7.8); NEUTROPHILS % (AUTO) 78 % (42-75); PLATELET COUNT 138 10^3/uL (130-400); RED BLOOD COUNT 2.35 10^6/uL (4.35-5.85); RED CELL DISTRIBUTION WIDTH 27.5 % (10.0-14.5); WHITE BLOOD COUNT 11.4 10^3/uL (4.3-11.0)
[2017-11-08 04:50] LABS: BUN/CREATININE RATIO 51; CALCIUM 8.1 MG/DL (8.5-10.1); CARBON DIOXIDE 20 MMOL/L (21-32); CHLORIDE 121 MMOL/L (98-107); CREATININE SERUM 0.94 MG/DL (0.60-1.30); GFR ESTIMATED > 60; GLUCOSE 120 MG/DL (70-105); MAGNESIUM 1.7 MG/DL (1.8-2.4); PHOSPHORUS 3.5 MG/DL (2.3-4.7); POTASSIUM 3.7 MMOL/L (3.6-5.0); SODIUM 150 MMOL/L (135-145)
[2017-11-08] MEDS: CATHETER FLUSH 10 ML SYR IV SCH ×3 (05:15→21:16)
[2017-11-08] MEDS: MAGNESIUM 1 GM/100 ML IVPB 100 ML IV SCH (05:15)
[2017-11-08] MEDS: POTASSIUM CL 10MEQ/50ML IVPB 50 ML IV SCH (05:15)
[2017-11-08] MEDS: KCL 20 MEQ TAB (K-DUR) PO SCH (05:16)
--- NOTE | 2017-11-08 07:37 | Cardiology Progress Note ---
Subjective Date Seen by Provider: Nov 08, 2017 Time Seen by Provider: 07:34 Subjective/Events-last exam Patient is laying down in bed, feeling better, denied any chest pain, no shortness of breath. Review of Systems General: No Chills, No Night Sweats, No Fatigue, No Malaise, No Appetite, No Other HEENT: No Head Aches, No Visual Changes, No Eye Pain, No Ear Pain, No Dysphasia , No Sinus Congestion, No Post Nasal Drip, No Sore Throat, No Other Pulmonary: No Dyspnea, No Cough, No Pleuritic Chest Pain, No Other Cardiovascular: No: Chest Pain, Palpitations, Orthopnea, Paroxysmal Noc. Dyspnea, Edema, Lt Headedness, Other Objective-Cardiology Exam Last Set of Vital Signs Vital Signs 11/07/17 11/08/17 16:16 06:00 Temp 98.1 Pulse 90 Resp 12 B/P (MAP) 129/94 (106) Pulse Ox 96 O2 Delivery Nasal Cannula O2 Flow Rate 2.00 Capillary Refill : Less Than 3 Seconds I&O Intake and Output 11/08/17 00:00 Intake Total 1274.5376 ml Output Total 2350 ml Balance -1075.4624 ml Intake Oral 0 ml IV Total 1274.5376 ml Output Urine Total 1250 ml Drainage Total 1100 ml # Bowel Movements 10 General: Alert, Cooperative, No Acute Distress, Other (drowsy) HEENT: Atraumatic, EOMI, Mucous Memb Moist/[place] Neck: Supple, No JVD, No Thyromegaly Lungs: Clear to Auscultation, Normal Air Movement Heart: Regular Rate, Normal S1, Normal S2, No Murmurs Abdomen: Normal Bowel Sounds Extremities: No Clubbing, No Cyanosis Skin: No Rashes, Other (upper and lower extremity edema) Neuro: Normal Speech Psych/Mental Status: Mental Status NL Results Lab Laboratory Tests 11/07/17 21:45 11/08/17 04:30 A/P-Cardiology Admission Diagnosis Colon Stricture Chest pain nonspecific etiology Coronary artery disease Congestive heart failure Assessment/Plan Colonic/sigmoid stricture, had multiple biopsies in the past, status post surgical repair and lysis of adhesions. Recovering slowly. Chest pain nonspecific etiology, cardiac catheterization was done in August 2014 showing mild disease nonobstructive disease. Unlikely to be cardiac in nature. had a stress test done on February 09, 2017 showing no significant ischemia Coronary artery disease, last cardiac catheterization was done on September 16, 2014 which showed mild coronary artery disease nonobstructive disease. Continue medical therapy Congestive heart failure, last echocardiogram showed ejection fraction 40-45 percent. Anasarca with poor nutritional state. Borderline hypotensive, cannot tolerate aggressive diuresis at this time. Anemia, multifactorial, worse today, consider transfusion, followed and managed by Dr. Hernandez History of Superficial venous thrombosis Mild bilateral carotid stenosis, last ultrasound was done in March 2016. Continue to monitor. Hypertension, continue to monitor blood pressure Hyperlipidemia, at this time he is at poor nutritional status. Followed and managed by primary care physician Bedbug infestation Generalized weakness and debility, poor oral intake. Bilateral pulmonary infiltrate and bilateral pulmonary edema, followed and managed by primary care physician Preoperative cardiac evaluation, patient is considered at intermediate risk for perioperative cardiovascular complications, decision regarding the surgery, risks versus benefit is deferred to the surgeon Clinical Quality Measures DVT/VTE Risk/Contraindication: Risk Factor Score Per Nursin RFS Level Per Nursing on Admit: 4+=Very High NATASHA BILLINGSLEY MD Nov 08, 2017 07:37
[2017-11-08] MEDS: POLYETHYLENE GLYCOL 17 GM (MIRALAX) PACK PO SCH ×2 (09:17→21:16)
[2017-11-08] MEDS: IRON POLYSAC 150 MG CAP (NIFEREX) PO SCH ×2 (09:17→21:16)
[2017-11-08] MEDS: ASPIRIN E.C. 81 MG (ECOTRIN) TAB PO SCH (09:17)
[2017-11-08] MEDS: PANTOPRAZOLE 40 MG/10 ML (PROTONIX) VIAL IV SCH (09:17)
--- NOTE | 2017-11-08 09:19 | Diagnostic Imaging Report ---
INDICATION: Acute renal failure. EXAMINATION: Portable chest at 3:29 AM. FINDINGS: The right subclavian central line tip projects over the SVC. There are bilateral pleural effusions with bibasilar infiltrate or atelectasis. IMPRESSION: Basilar consolidation with effusion. No change from the previous day. Dictated by: Dictated on workstation # [id number]
--- NOTE | 2017-11-08 09:29 | Physical Therapy Daily Note ---
PT Daily Note-Current Subjective Patient in bed pre tx, agrees to PT, states he has very little pain at rest. Patient has a lot of edema in arms and legs. He has had a BM in the bed. Appearance Patient in recliner post tx with nurse call, tray, chair alarm on, legs elevated. Nurse in the room. Mental Status Patient Orientation: Person, Place, Situation Attachments: Drains, Cheng Catheter, IV Transfers Functional [place] Measure 0=Not Assessed/NA 4=Minimal Assistance 1=Total Assistance 5=Supervision or Setup 2=Maximal Assistance 6=Modified [place] 3=Moderate Assistance 7=Complete IndependenceIRFPAI Quality Coding Scale 6 Independent with activity with or without an assistive device 5 Patient requires set up or clean up by helper. Patient completes activity by themselves 4 Supervision or touching assist (CGA). [place] provide cues , steadying assist 3 The helper provides less than half the effort to complete the activity 2 The helper provides more than half the effort to complete the activity 1 Dependent. The helper does all the effort to complete an activity 7 Patient refused to complete or attempt activity 9 The patient did not perform the activity before the current illness or injury 88 Not attempted due to Medical conditions or safety concerns Transfers (B, C, W/C) (FIM): 3 Scootin Rollin Supine to/from Sit: 3 Sit to/from Stand: 3 Bed to/from Chair: 4 Patient requires mod assist for most bed mobility and sit to stand but performs a stand pivot transfer with CGA. Patient had to perform several sit to stands and transfers to get him cleaned and put on the commode and then to the recliner. Weight Bearing Right Lower Extremity: Right Full Weight Bearing Left Lower Extremity: Left Full Weight Bearing Gait Training Gait (FIM): 1 Distance: 3' Gait Level of Assist: 4 Gait Persons Needed: 1 Gait Assistive Device: FWW Exercises Seated Therapy Exercises: Ankle pumps, Long arc quads, Hip flexion Seated Reps: 15 Treatments bed mobility and transfers, ambulation, functional strengthening, patient was toileted Assessment Current Status: Poor Progress Patient is very weak and has poor endurance. He was exhausted just from standing while getting cleaned up from BM and he stated that he had to sit down now. PT Short Term Goals Short Term Goals Time Frame: Nov 09, 2017 Transfers (B,C,W/C) (FIM): 4 Gait (FIM): 1 Gait Distance Comment: 20' Gait Level of Assist: 4 Gait Assistive Device: FWW PT Plan Problem List Problem List: Activity Tolerance, Functional Strength, Safety, Balance, Gait, Transfer, Bed Mobility, ROM Treatment/Plan Treatment Plan: Continue Plan of Care Treatment Plan: Bed Mobility, Education, Functional Activity Perri, Functional Strength, Gait, Safety, Therapeutic Exercise, Transfers Treatment Duration: Nov 09, 2017 Frequency: 6 times per week Estimated Hrs Per Day: .25 hour per day (15-30') Patient and/or Family Agrees t: Yes Safety Risks/Education Patient Education: Gait Training, Transfer Techniques, Correct Positioning, Safety Issues Teaching Recipient: Patient Teaching Methods: Demonstration, Discussion Response to Teaching: Reinforcement Needed Time/GCodes Time In: 0840 Time Out: 0915 Total Billed Treatment Time: 35 Total Billed Treatment 1 visit FA 35' ALISON LAUREANO PT Nov 08, 2017 09:29
--- NOTE | 2017-11-08 10:58 | Progress Note (SOAP) ---
Subjective Subjective/Events-last exam Afebrile, denies pain, states he is feeling a little better and wanting to try to eat some. Review of Systems Date Seen by Provider: Nov 08, 2017 Time Seen by Provider: 08:23 Objective Exam Last Set of Vital Signs Vital Signs Date Time Temp Pulse Resp B/P (MAP) Pulse Ox O2 Delivery O2 Flow Rate FiO2 11/08/17 09:42 Nasal Cannula 2.00 11/08/17 09:31 86 20 109/71 (84) 96 11/08/17 08:00 98.0 Capillary Refill : Less Than 3 Seconds I&O Intake and Output 11/08/17 00:00 Intake Total 1274.5376 ml Output Total 2350 ml Balance -1075.4624 ml Intake Oral 0 ml IV Total 1274.5376 ml Output Urine Total 1250 ml Drainage Total 1100 ml # Bowel Movements 10 General: Alert, No Acute Distress Lungs: Clear to Auscultation, Normal Air Movement Heart: Regular Rate, No Murmurs Abdomen: Normal Bowel Sounds, Soft Neuro: Normal Speech Results/Procedures Lab Laboratory Tests 11/07/17 21:45: Sodium Level 150H, Potassium Level 4.0, Chloride Level 122H, Carbon Dioxide Level 21, Anion Gap 7, Blood Urea Nitrogen 48H, Creatinine 0.97, Estimat Glomerular Filtration Rate > 60, BUN/Creatinine Ratio 49, Glucose Level 138H, Calcium Level 8.2L 11/08/17 04:30: Sodium Level 150H, Potassium Level 3.7, Chloride Level 121H, Carbon Dioxide Level 20L, Anion Gap 9, Blood Urea Nitrogen 48H, Creatinine 0.94, Estimat Glomerular Filtration Rate > 60, BUN/Creatinine Ratio 51, Glucose Level 120H, Calcium Level 8.1L, White Blood Count 11.4H, Red Blood Count 2.35L, Hemoglobin 7.5L, Hematocrit 23L, Mean Corpuscular Volume 99, Mean Corpuscular Hemoglobin 32 , Mean Corpuscular Hemoglobin Concent 32, Red Cell Distribution Width 27.5H, Platelet Count 138, Mean Platelet Volume , Neutrophils (%) (Auto) 78H, Lymphocytes (%) (Auto) 8L, Monocytes (%) (Auto) 15H, Eosinophils (%) (Auto) 0, Basophils (%) (Auto) 0, Neutrophils # (Auto) 8.9H, Lymphocytes # (Auto) 0.9L, Monocytes # (Auto) 1.7H, Eosinophils # (Auto) 0.0, Basophils # (Auto) 0.0, Phosphorus Level 3.5, Magnesium Level 1.7L Microbiology 11/01/17 Blood Culture - Final, Complete No growth 11/05/17 C. difficile GDH Antigen & Toxins - Final, Complete 10/30/17 MRSA Screen - Final, Complete MRSA not isolated Radiology Date of Exam: 10/31/17 CHEST 1 VIEW, AP/PA ONLY INDICATION: Anemia and renal failure and hypokalemia. Frontal chest obtained at 3:41 a.m. and compared to 10/30/2017 FINDINGS: The heart is enlarged and appears similar to the prior study. The right-sided PICC line is unchanged. There is bibasilar infiltrate which is unchanged compared to the prior study. There is a small amount of pleural fluid in the left costophrenic angle. This appears mildly decreased compared to yesterday. IMPRESSION: Cardiomegaly. Unchanged bibasilar infiltrates. Mild decrease in left pleural fluid compared to the prior study. Assessment/Plan Assessment/Plan (1) Sigmoid stricture Status: Chronic Assessment & Plan: 10/31 -biopsied by Dr. Contreras in Nov -not a surgical candidate in past given his overall poor health -consider CT scan to evaluate if stricture has become obstructing 11/02 -abnormal CT abd/pelvis although difficulty defining many structures due to lack of contrast -consult to Dr. Contreras, who has seen pt in the past for this 11/03/17 - Dr. Contreras plans to take patient to OR Sunday or Sunday; Dr. Oglesby covering this weekend. 11/06/17- plan for surgery today 11/07/17- POD#1 post sigmoid resection, small bowel resection with anastomosis, enterorraphy (2) Hypokalemia Status: Resolved (3) Hypomagnesemia Status: Resolved (4) Hypocalcemia Status: Resolved (5) Acute renal failure Status: Resolved Qualifiers: Qualified Codes: N17.9 - Acute kidney failure, unspecified (6) Hypoalbuminemia Status: Acute Assessment & Plan: 10/30 1.8 11/02 -will replace q8h x24 hours 10/30 1.8 11/02 -will replace q8h x24 hours 11/06 chronic poor nutrition, on TPN now and taking oral (7) Severe anemia Status: Acute Assessment & Plan: 10/30 6.4 on admission transfused 2 units PRBC 11/04/17 - 2 U prbc ordered for today; Hb 7.6 (8) Thrombocythemia Status: Chronic Assessment & Plan: Consult to Dr. Hernandez 11/01- platelets currently low -plan is to hold hydroxyurea for some time -will continue to attempt to correct electrolytes -Dr. Hernandez consulted (9) History of pulmonary embolism Status: Chronic Permanent Comment: 03/2017 Last Edited By: Antony Villarreal on Jun 22, 2017 14: 28 Assessment & Plan: 10/31 -home eliquis on hold today -will likely restart tomorrow if Hgb remains stable 11/01 -pt appears not to have been taking his eliquis at home -renal dosing lovenox started today (10) At risk for falls Status: Chronic Assessment & Plan: 10/31 -pt's living conditions not suitable for him to return home; will need placement at discharge 11/01 -pt spoke with social work and reported is willing to go to facility at discharge; they have begun seeking potential placement -pt reports his biggest goal is "to be clean" -expect that patient will do quite well with placement in a skilled facility where he is taken care of -family informed at admission that patient would not be able to return home, as he was not being adequately cared for, they were - for the most part - in agreement, son had some reservations because he did not think patient would be willing to go; discussed with son that patient would require placement at discharge and could not return home 11/02 -PT to eval and treat (11) Chronic combined systolic and diastolic CHF (congestive heart failure) Status: Chronic Permanent Comment: Cardiac Cath 2014 with nonischemic cardiomyopathy and EF 40% Echocardiogram 01/2017 with aortic root mildly dilated, grade 1 diastolic dysfunction, EF 55-65% and hypokinesis inferior myocardium Stress test 01/2017 negative for ischemia, had predominantly fixed apical defect with mild reversability and low normal LV function Echo 11/03/17 - EF 40-45%; Pulmonary hypertension w/ pulm pressure 60-65mmHg Last Edited By: Nicole Currie on Nov 04, 2017 09:36 Assessment & Plan: 11/01 -appears stable, may consider repeat echo depending on pt's clinical course 11/05/17- Cardiology consult preop (12) Generalized weakness Status: Chronic Assessment & Plan: 11/01 -see above under at risk for falls (13) Sepsis Status: Acute Assessment & Plan: 10/31 -likely secondary to bilateral PNA 11/06- afebrile, unclear if true pneumonia, 7 day course of antibiotics will be completed, continue if desired after surgery based on surgery recommendations Qualifiers: Qualified Codes: A41.9 - Sepsis, unspecified organism (14) Protein calorie malnutrition Status: Chronic Assessment & Plan: 10/30 -prealbumin 10 in Jun 26 -will recheck in AM 11/01 -prealbumin pending 11/02 prealbumin now 7.5; consider TPN for additional nutrition 11/03/17 - pt has been started on TPN Qualifiers: Qualified Codes: E44.0 - Moderate protein-calorie malnutrition (15) GI bleed Status: Chronic Assessment & Plan: 10/31 -heme positive stools on admission -n chi bleeding noted -CT abd/pelvis in AM 11/02 -abnormal CT, consult to Dr. Contreras 11/04 - Hb generally stable at 7.6; transfuse 2U prbc in anticipation of surgery. Qualifiers: Qualified Codes: K92.2 - Gastrointestinal hemorrhage, unspecified (16) PNA (pneumonia) Status: Acute Qualifiers: (17) Cellulitis of right upper extremity Status: Resolved (18) Bilateral pleural effusion Status: Acute (19) Hypotension Status: Resolved Qualifiers: Qualified Codes: I95.9 - Hypotension, unspecified (20) Hyperphosphatemia Status: Resolved (21) Hypernatremia Status: Acute Assessment & Plan: 11/04/17 - electrolyte adjustment in TPN 11/06- persistent worsening, will stop sodium bicarb and start D5W at 100 mls/hr , recheck in 4 hours 11/07- improved to 149 with D5W yesterday, per pharmacy will add free water at 50 ml/hr in TPN 11/08- remains at 150, but received albumin which is similar to NS yesterday, will slightly increase TPN free water rate (22) DVT prophylaxis Status: Acute Assessment & Plan: 10/31 -chemical prophylaxis currently on hold due to need for transfusion on admission -will likely restart in AM if Hgb remains stable 11/01 -stable Hgb -lovenox with renal dosing Clinical Quality Measures DVT/VTE Risk/Contraindication: Risk Factor Score Per Nursin RFS Level Per Nursing on Admit: 4+=Very High ANTONY VILLARREAL MD Nov 08, 2017 10:58
--- NOTE | 2017-11-08 13:32 | Anesthesia-General Post-Op ---
General Patient Condition Mental Status/LOC: Same as Preop Cardiovascular: Satisfactory Nausea/Vomiting: Absent Respiratory: Satisfactory Pain: Controlled Complications: Absent Post Op Complications Complications None Follow Up Care/Instructions Patient Instructions None needed. Anesthesia/Patient Condition Patient Condition Post date note 11/07/17: Patient is doing well, no complaints, stable vital signs, no apparent adverse anesthesia problems. No complications reported per nursing. LINDA FOY CRNA Nov 08, 2017 13:32
[2017-11-08] MEDS ORDERED: MAGNESIUM 1 GM/100 ML IVPB 100 ML IV ONE (15:15)
--- NOTE | 2017-11-08 15:44 | Progress Note (SOAP) ---
Subjective Date Seen by Provider: Nov 08, 2017 Time Seen by Provider: 15:00 Subjective/Events-last exam doing ok. awake and alert. had copious diarrhea last night however improving. tolerating clears but still minimal appetite. no fever/chills. pain controlled. Objective Exam Vital Signs Date Time Temp Pulse Resp B/P (MAP) Pulse Ox O2 Delivery O2 Flow Rate FiO2 11/08/17 13:00 80 11/08/17 12:32 Nasal Cannula 2.00 11/08/17 12:00 98.3 77 12 128/69 (88) 99 Nasal Cannula 2.00 11/08/17 11:00 82 13 132/96 (108) 98 Nasal Cannula 2.00 11/08/17 10:00 82 19 122/102 (109) 99 Nasal Cannula 2.00 11/08/17 09:42 Nasal Cannula 2.00 11/08/17 09:31 86 20 109/71 (84) 96 Nasal Cannula 2.00 11/08/17 09:26 91 Nasal Cannula 2.00 11/08/17 09:00 Nasal Cannula 2.00 11/08/17 09:00 89 13 109/87 (94) 98 Room Air 11/08/17 08:00 98.0 93 22 124/74 (91) 95 Room Air 11/08/17 07:00 90 15 115/89 (98) 97 Nasal Cannula 2.00 11/08/17 07:00 92 11/08/17 06:00 90 12 129/94 (106) 96 Nasal Cannula 2.00 11/08/17 05:00 89 15 117/101 (106) 92 Nasal Cannula 2.00 11/08/17 04:00 90 15 118/90 (99) 97 Nasal Cannula 2.00 11/08/17 04:00 Nasal Cannula 2.00 11/08/17 03:00 82 11 116/92 (100) 100 Nasal Cannula 2.00 11/08/17 02:00 88 12 116/89 (98) 98 Nasal Cannula 2.00 11/08/17 01:00 86 15 118/92 (101) 98 Nasal Cannula 2.00 11/08/17 01:00 96 11/08/17 01:00 89 11/08/17 00:00 Nasal Cannula 2.00 11/08/17 00:00 83 19 108/91 (97) 97 Nasal Cannula 2.00 11/07/17 23:00 87 14 110/73 (85) 100 Nasal Cannula 2.00 11/07/17 22:00 80 14 110/72 (85) 100 Nasal Cannula 2.00 11/07/17 21:00 87 36 104/68 (80) 93 Nasal Cannula 2.00 11/07/17 20:00 Nasal Cannula 2.00 11/07/17 20:00 88 12 104/68 (80) 100 Nasal Cannula 2.00 11/07/17 19:00 77 11 99 Nasal Cannula 2.00 11/07/17 19:00 77 11/07/17 18:00 93 14 114/74 (87) 100 Room Air 11/07/17 17:00 90 14 116/74 (88) 99 Room Air 11/07/17 16:16 Nasal Cannula 2.00 11/07/17 16:16 98.1 11/07/17 16:00 93 12 114/79 (91) 94 Room Air I & O 11/08/17 07:00 Intake Total 1374.5376 ml Output Total 2260 ml Balance -885.4624 ml Capillary Refill : Less Than 3 Seconds General Appearance: No Apparent Distress HEENT: PERRL/EOMI Neck: Full Range of Motion Respiratory: Chest Non Tender, Decreased Breath Sounds Cardiovascular: Regular Rate, Rhythm Gastrointestinal: normal bowel sounds, soft, other (incision clean/dry) Extremity: Normal Capillary Refill Neurologic/Psychiatric: Alert, Oriented x3 Skin: Normal Color Lymphatic: No Adenopathy Results Lab Laboratory Tests 11/07/17 21:45: Sodium Level 150H, Potassium Level 4.0, Chloride Level 122H, Carbon Dioxide Level 21, Anion Gap 7, Blood Urea Nitrogen 48H, Creatinine 0.97, Estimat Glomerular Filtration Rate > 60, BUN/Creatinine Ratio 49, Glucose Level 138H, Calcium Level 8.2L 11/08/17 04:30: Sodium Level 150H, Potassium Level 3.7, Chloride Level 121H, Carbon Dioxide Level 20L, Anion Gap 9, Blood Urea Nitrogen 48H, Creatinine 0.94, Estimat Glomerular Filtration Rate > 60, BUN/Creatinine Ratio 51, Glucose Level 120H, Calcium Level 8.1L, White Blood Count 11.4H, Red Blood Count 2.35L, Hemoglobin 7.5L, Hematocrit 23L, Mean Corpuscular Volume 99, Mean Corpuscular Hemoglobin 32 , Mean Corpuscular Hemoglobin Concent 32, Red Cell Distribution Width 27.5H, Platelet Count 138, Mean Platelet Volume , Neutrophils (%) (Auto) 78H, Lymphocytes (%) (Auto) 8L, Monocytes (%) (Auto) 15H, Eosinophils (%) (Auto) 0, Basophils (%) (Auto) 0, Neutrophils # (Auto) 8.9H, Lymphocytes # (Auto) 0.9L, Monocytes # (Auto) 1.7H, Eosinophils # (Auto) 0.0, Basophils # (Auto) 0.0, Phosphorus Level 3.5, Magnesium Level 1.7L Microbiology 11/01/17 Blood Culture - Final, Complete No growth 11/05/17 C. difficile GDH Antigen & Toxins - Final, Complete 10/30/17 MRSA Screen - Final, Complete MRSA not isolated Assessment/Plan Assessment/Plan Assess & Plan/Chief Complaint sigmoid diverticular stricture s/p sigmoid colectomy and en-bloc small bowel resection with anastomosis. having bowel function. no nausea/vomiting or abd distention. clear liquid diet. restart lovenox. PT and ambulate as much as possible. continue TPN due to significant malnutrition. increase diet to DYS3 diet. transfer to floor. Clinical Quality Measures DVT/VTE Risk/Contraindication: Risk Factor Score Per Nursin RFS Level Per Nursing on Admit: 4+=Very High MIKE OTOOLE MD Nov 08, 2017 15:44
[2017-11-08] MEDS ORDERED: POTASSIUM PHOSPHATE IV SCH ×10 (17:00)
[2017-11-08] MEDS ORDERED: [UNRECOGNIZED DRUG - OTHER] IV SCH ×10 (17:00)
[2017-11-08] MEDS ORDERED: POTASSIUM ACETATE IV SCH ×10 (17:00)
[2017-11-08] MEDS: ENOXAPARIN 40 MG/0.4 ML (LOVENOX) SYR SC SCH (21:16)
[2017-11-09] VITALS: BP 120/77
[2017-11-09 04:01] VITALS: BP 122/77
[2017-11-09] MEDS: CATHETER FLUSH 10 ML SYR IV SCH ×2 (05:20→14:28)
[2017-11-09 05:37] LABS: BASOPHILS % (AUTO) 0 % (0-10); EOSINOPHILS % (AUTO) 0 % (0-10); HEMATOCRIT 25 % (40-54); HEMOGLOBIN 8.2 G/DL (13.3-17.7); LYMPHOCYTES # (AUTO) 0.8 X 10^3 (1.0-4.0); LYMPHOCYTES % (AUTO) 7 % (12-44); MEAN CORPUSCULAR HEMOGLOBIN 32 PG (25-34); MEAN CORPUSCULAR HGB CONC 32 G/DL (32-36); MEAN CORPUSCULAR VOLUME 99 FL (80-99); MONOCYTES # (AUTO) 1.7 X 10^3 (0.0-1.0); MONOCYTES % (AUTO) 15 % (0-12); NEUTROPHILS # (AUTO) 8.9 X 10^3 (1.8-7.8); NEUTROPHILS % (AUTO) 78 % (42-75); PLATELET COUNT 145 10^3/uL (130-400); RED BLOOD COUNT 2.56 10^6/uL (4.35-5.85); RED CELL DISTRIBUTION WIDTH 26.4 % (10.0-14.5); WHITE BLOOD COUNT 11.4 10^3/uL (4.3-11.0)
[2017-11-09 05:47] LABS: INR 1.3 (0.8-1.4); PROTHROMBIN TIME PATIENT 16.1 SEC (12.2-14.7)
[2017-11-09 06:24] LABS: ALANINE AMINOTRANSFERASE 45 U/L (0-55); ALBUMIN 1.9 GM/DL (3.2-4.5); ALKALINE PHOSPHATASE 127 U/L (40-136); BILIRUBIN,TOTAL 0.5 MG/DL (0.1-1.0); BUN/CREATININE RATIO 57; CARBON DIOXIDE 19 MMOL/L (21-32); CHLORIDE 118 MMOL/L (98-107); CREATININE SERUM 0.83 MG/DL (0.60-1.30); GFR ESTIMATED > 60; GLUCOSE 111 MG/DL (70-105); MAGNESIUM 1.7 MG/DL (1.8-2.4); SODIUM 146 MMOL/L (135-145); TOTAL PROTEIN 4.4 GM/DL (6.4-8.2); TRIGLYCERIDES 85 MG/DL (<150)
[2017-11-09] MEDS ORDERED: MAGNESIUM 1 GM/100 ML IVPB 100 ML IV ONE (06:45)
[2017-11-09] MEDS: POTASSIUM CL 10MEQ/50ML IVPB 50 ML IV SCH ×4 (07:33→10:44)
[2017-11-09 08:00] VITALS: BP 133/75
[2017-11-09] MEDS: IRON POLYSAC 150 MG CAP (NIFEREX) PO SCH (09:18)
[2017-11-09] MEDS: PANTOPRAZOLE 40 MG/10 ML (PROTONIX) VIAL IV SCH (09:18)
[2017-11-09] MEDS: POLYETHYLENE GLYCOL 17 GM (MIRALAX) PACK PO SCH (09:18)
[2017-11-09] MEDS: ASPIRIN E.C. 81 MG (ECOTRIN) TAB PO SCH (09:18)
--- NOTE | 2017-11-09 10:00 | Physical Therapy Daily Note ---
PT Daily Note-Current Subjective Patient agrees to PT. Pain Numeric Pain Scale: 5-Moderate Pain Location: Lower Location Body Site: Abdomen Pain Description: Acute Mental Status Patient Orientation: Normal For Age Attachments: Drains, Cheng Catheter, IV Transfers Functional [place] Measure 0=Not Assessed/NA 4=Minimal Assistance 1=Total Assistance 5=Supervision or Setup 2=Maximal Assistance 6=Modified [place] 3=Moderate Assistance 7=Complete IndependenceIRFPAI Quality Coding Scale 6 Independent with activity with or without an assistive device 5 Patient requires set up or clean up by helper. Patient completes activity by themselves 4 Supervision or touching assist (CGA). Lena provide cues , steadying assist 3 The helper provides less than half the effort to complete the activity 2 The helper provides more than half the effort to complete the activity 1 Dependent. The helper does all the effort to complete an activity 7 Patient refused to complete or attempt activity 9 The patient did not perform the activity before the current illness or injury 88 Not attempted due to Medical conditions or safety concerns Transfers (B, C, W/C) (FIM): 4 Sit to/from Stand: 4 Weight Bearing Right Lower Extremity: Right Full Weight Bearing Left Lower Extremity: Left Full Weight Bearing Gait Training Gait (FIM): 1 Distance (FIM): 1=up to 49 ft Distance: 45' Gait Level of Assist: 3 Gait Assistive Device: FWW slow, slightly unsteady Exercises Seated Therapy Exercises: Ankle pumps, Long arc quads, Hip flexion Seated Reps: 15 (x 2 sets) Assessment Patient improving with treatment plan. PT will increase activity as tolerated by patient. PT Short Term Goals Short Term Goals Time Frame: Nov 09, 2017 Transfers (B,C,W/C) (FIM): 4 Gait (FIM): 1 Gait Distance Comment: 20' Gait Level of Assist: 4 Gait Assistive Device: FWW PT Plan Treatment/Plan Treatment Plan: Continue Plan of Care Treatment Plan: Bed Mobility, Education, Functional Activity Perri, Functional Strength, Gait, Safety, Therapeutic Exercise, Transfers Treatment Duration: Nov 09, 2017 Frequency: 6 times per week Estimated Hrs Per Day: .25 hour per day (15-30') Patient and/or Family Agrees t: Yes Time/GCodes Time In: 904 Time Out: 927 Total Billed Treatment Time: 23 Total Billed Treatment 1 visit EX 8 min GT 15 min KAITLYN KAISER PT Nov 09, 2017 10:00
--- NOTE | 2017-11-09 10:01 | Diagnostic Imaging Report ---
INDICATION: Anemia and hypokalemia. Comparison made with prior examination 11/08/2017. FINDINGS: There are bibasilar infiltrates and bilateral pleural effusions. There is cardiomegaly and some venous congestion. There is no pneumothorax. Mediastinum is unremarkable. The central venous catheter is in satisfactory position. IMPRESSION: Bibasilar infiltrates and bilateral pleural effusions. Cardiomegaly and some central pulmonary venous congestion. Dictated by: Dictated on workstation # [id number]
--- NOTE | 2017-11-09 10:30 | Progress Note (SOAP) ---
Subjective Subjective/Events-last exam Afebrile, no acute events. Transferred to floor. Sitting up in chair this morning. Continues with loose stools. Review of Systems Date Seen by Provider: Nov 09, 2017 Time Seen by Provider: 09:22 Objective Exam Last Set of Vital Signs Vital Signs Date Time Temp Pulse Resp B/P (MAP) Pulse Ox O2 Delivery O2 Flow Rate FiO2 11/09/17 08:00 97.1 86 20 133/75 (94) 91 Room Air 11/08/17 16:00 2.00 Capillary Refill : Less Than 3 Seconds I&O Intake and Output 11/09/17 00:00 Intake Total 1480 ml Output Total 2745 ml Balance -1265 ml Intake Oral 880 ml IV Total 600 ml Output Urine Total 1625 ml Drainage Total 1120 ml # Bowel Movements 9 General: Alert, No Acute Distress Lungs: Clear to Auscultation, Normal Air Movement Heart: Regular Rate, No Murmurs Abdomen: Normal Bowel Sounds, Soft Neuro: Normal Speech Psych/Mental Status: Mood NL Results/Procedures Lab Laboratory Tests 11/09/17 05:25: White Blood Count 11.4H, Red Blood Count 2.56L, Hemoglobin 8.2L, Hematocrit 25L , Mean Corpuscular Volume 99, Mean Corpuscular Hemoglobin 32, Mean Corpuscular Hemoglobin Concent 32, Red Cell Distribution Width 26.4H, Platelet Count 145, Mean Platelet Volume , Neutrophils (%) (Auto) 78H, Lymphocytes (%) (Auto) 7L, Monocytes (%) (Auto) 15H, Eosinophils (%) (Auto) 0, Basophils (%) (Auto) 0, Neutrophils # (Auto) 8.9H, Lymphocytes # (Auto) 0.8L, Monocytes # (Auto) 1.7H, Eosinophils # (Auto) 0.0, Basophils # (Auto) 0.0, Prothrombin Time 16.1H, INR Comment 1.3, Sodium Level 146H, Potassium Level 3.0L, Chloride Level 118H, Carbon Dioxide Level 19L, Anion Gap 9, Blood Urea Nitrogen 47H, Creatinine 0.83 , Estimat Glomerular Filtration Rate > 60, BUN/Creatinine Ratio 57, Glucose Level 111H, Calcium Level 8.0L, Phosphorus Level 3.0, Magnesium Level 1.7L, Total Bilirubin 0.5, Aspartate Amino Transf (AST/SGOT) 51H, Alanine Aminotransferase (ALT/SGPT) 45, Alkaline Phosphatase 127, Total Protein 4.4L, Albumin 1.9L, Triglycerides Level 85 Microbiology 11/01/17 Blood Culture - Final, Complete No growth 11/05/17 C. difficile GDH Antigen & Toxins - Final, Complete 10/30/17 MRSA Screen - Final, Complete MRSA not isolated Radiology Date of Exam: 10/31/17 CHEST 1 VIEW, AP/PA ONLY INDICATION: Anemia and renal failure and hypokalemia. Frontal chest obtained at 3:41 a.m. and compared to 10/30/2017 FINDINGS: The heart is enlarged and appears similar to the prior study. The right-sided PICC line is unchanged. There is bibasilar infiltrate which is unchanged compared to the prior study. There is a small amount of pleural fluid in the left costophrenic angle. This appears mildly decreased compared to yesterday. IMPRESSION: Cardiomegaly. Unchanged bibasilar infiltrates. Mild decrease in left pleural fluid compared to the prior study. Assessment/Plan Assessment/Plan (1) Sigmoid stricture Status: Chronic Assessment & Plan: 10/31 -biopsied by Dr. Contreras in Nov -not a surgical candidate in past given his overall poor health -consider CT scan to evaluate if stricture has become obstructing 11/02 -abnormal CT abd/pelvis although difficulty defining many structures due to lack of contrast -consult to Dr. Contreras, who has seen pt in the past for this 11/03/17 - Dr. Contreras plans to take patient to OR Sunday or Sunday; Dr. Oglesby covering this weekend. 11/06/17- plan for surgery today 11/07 s/p sigmoid resection, small bowel resection with anastomosis, enterorraphy - management per Dr. Contreras (2) Hypokalemia Status: Acute Assessment & Plan: 11/09- Initially on admit had severe difficult to replace hypokalemia, had resolved, recurrent today, will replace and recheck. (3) Hypomagnesemia Status: Acute Assessment & Plan: Replacing daily as needed (4) Hypocalcemia Status: Resolved (5) Acute renal failure Status: Resolved Qualifiers: Qualified Codes: N17.9 - Acute kidney failure, unspecified (6) Hypoalbuminemia Status: Acute Assessment & Plan: 10/30 1.8 11/02 -will replace q8h x24 hours 10/30 1.8 11/02 -will replace q8h x24 hours 11/06 chronic poor nutrition, on TPN now and taking oral (7) Severe anemia Status: Acute Assessment & Plan: 10/30 6.4 on admission transfused 2 units PRBC 11/04/17 - 2 U prbc ordered for today; Hb 7.6 11/09 stable (8) Thrombocythemia Status: Chronic Assessment & Plan: Consult to Dr. Hernandez 11/01- platelets currently low -plan is to hold hydroxyurea for some time -will continue to attempt to correct electrolytes -Dr. Hernandez consulted (9) History of pulmonary embolism Status: Chronic Permanent Comment: 03/2017 Last Edited By: Antony Villarreal on Jun 22, 2017 2: 28 pm Assessment & Plan: 10/31 -home eliquis on hold today -will likely restart tomorrow if Hgb remains stable 11/01 -pt appears not to have been taking his eliquis at home -renal dosing lovenox started today (10) At risk for falls Status: Chronic Assessment & Plan: 10/31 -pt's living conditions not suitable for him to return home; will need placement at discharge 11/01 -pt spoke with social work and reported is willing to go to facility at discharge; they have begun seeking potential placement -pt reports his biggest goal is "to be clean" -expect that patient will do quite well with placement in a skilled facility where he is taken care of -family informed at admission that patient would not be able to return home, as he was not being adequately cared for, they were - for the most part - in agreement, son had some reservations because he did not think patient would be willing to go; discussed with son that patient would require placement at discharge and could not return home 11/02 -PT to eval and treat (11) Chronic combined systolic and diastolic CHF (congestive heart failure) Status: Chronic Permanent Comment: Cardiac Cath 2014 with nonischemic cardiomyopathy and EF 40% Echocardiogram 01/2017 with aortic root mildly dilated, grade 1 diastolic dysfunction, EF 55-65% and hypokinesis inferior myocardium Stress test 01/2017 negative for ischemia, had predominantly fixed apical defect with mild reversability and low normal LV function Echo 11/03/17 - EF 40-45%; Pulmonary hypertension w/ pulm pressure 60-65mmHg Last Edited By: Nicole Currie on Nov 04, 2017 9:36 am Assessment & Plan: 11/01 -appears stable, may consider repeat echo depending on pt's clinical course 11/05/17- Cardiology consult preop (12) Generalized weakness Status: Chronic Assessment & Plan: 11/01 -see above under at risk for falls (13) Sepsis Status: Acute Assessment & Plan: 10/31 -likely secondary to bilateral PNA 11/06- afebrile, CXR stable, no hypoxia, 7 day course of antibiotics will be completed, continue if desired based on surgery recommendations Qualifiers: Qualified Codes: A41.9 - Sepsis, unspecified organism (14) Protein calorie malnutrition Status: Chronic Assessment & Plan: 10/30 -prealbumin 10 in b 10/31 -will recheck in AM 11/01 -prealbumin pending 11/02 prealbumin now 7.5; consider TPN for additional nutrition 11/03/17 - pt has been started on TPN Qualifiers: Qualified Codes: E44.0 - Moderate protein-calorie malnutrition (15) GI bleed Status: Chronic Assessment & Plan: 10/31 -heme positive stools on admission -n chi bleeding noted -CT abd/pelvis in AM 11/02 -abnormal CT, consult to Dr. Contreras 11/04 - Hb generally stable at 7.6; transfuse 2U prbc in anticipation of surgery. Qualifiers: Qualified Codes: K92.2 - Gastrointestinal hemorrhage, unspecified (16) PNA (pneumonia) Status: Acute Qualifiers: (17) Cellulitis of right upper extremity Status: Resolved (18) Bilateral pleural effusion Status: Acute (19) Hypotension Status: Resolved Qualifiers: Qualified Codes: I95.9 - Hypotension, unspecified (20) Hyperphosphatemia Status: Resolved (21) Hypernatremia Status: Acute Assessment & Plan: 11/04/17 - electrolyte adjustment in TPN 11/06- persistent worsening, will stop sodium bicarb and start D5W at 100 mls/hr , recheck in 4 hours 11/07- improved to 149 with D5W yesterday, per pharmacy will add free water at 50 ml/hr in TPN 11/08- remains at 150, but received albumin which is similar to NS yesterday, will slightly increase TPN free water rate 11/08- improving, continue current TPN and monitor (22) DVT prophylaxis Status: Acute Assessment & Plan: 10/31 -chemical prophylaxis currently on hold due to need for transfusion on admission -will likely restart in AM if Hgb remains stable 11/01 -stable Hgb -lovenox with renal dosing Clinical Quality Measures DVT/VTE Risk/Contraindication: Risk Factor Score Per Nursin RFS Level Per Nursing on Admit: 4+=Very High ANTONY VILLARREAL MD Nov 09, 2017 10:30 am
[2017-11-09 12:00] VITALS: BP 137/83
--- NOTE | 2017-11-09 12:54 | Progress Note (SOAP) ---
Subjective Date Seen by Provider: Nov 09, 2017 Time Seen by Provider: 12:30 Subjective/Events-last exam doing better. tolerating regular diet and having more solid and less frequent stools. MILAGRO drain SS. no abdominal pain. bilateral extremity swelling due to malnutrition/hypoproteinemia. Objective Exam Vital Signs Date Time Temp Pulse Resp B/P (MAP) Pulse Ox O2 Delivery O2 Flow Rate FiO2 11/09/17 08:00 97.1 86 20 133/75 (94) 91 Room Air 11/09/17 04:01 97.6 80 17 122/77 (92) 91 Room Air 11/09/17 00:00 98.5 89 17 120/77 (91) 92 Room Air 11/08/17 20:25 97.9 81 18 111/68 (82) 93 Room Air 11/08/17 16:55 96.4 73 18 100/60 (73) 93 Room Air 11/08/17 16:00 81 11 106/84 (91) 100 Nasal Cannula 2.00 11/08/17 15:00 88 15 123/84 (97) 97 Nasal Cannula 2.00 11/08/17 14:00 80 12 139/88 (105) 98 Nasal Cannula 2.00 11/08/17 13:00 80 11/08/17 13:00 80 10 117/79 (92) 98 Nasal Cannula 2.00 I & O 11/09/17 07:00 Intake Total 2230 ml Output Total 2905 ml Balance -675 ml Capillary Refill : Less Than 3 Seconds General Appearance: No Apparent Distress HEENT: PERRL/EOMI Neck: Full Range of Motion Respiratory: Chest Non Tender, Lungs Clear Cardiovascular: Regular Rate, Rhythm Gastrointestinal: normal bowel sounds, non tender, soft, other (wound clean/dry ) Extremity: Normal Capillary Refill Neurologic/Psychiatric: Alert, Oriented x3 Skin: Normal Color Lymphatic: No Adenopathy Results Lab Laboratory Tests 11/09/17 05:25: White Blood Count 11.4H, Red Blood Count 2.56L, Hemoglobin 8.2L, Hematocrit 25L , Mean Corpuscular Volume 99, Mean Corpuscular Hemoglobin 32, Mean Corpuscular Hemoglobin Concent 32, Red Cell Distribution Width 26.4H, Platelet Count 145, Mean Platelet Volume , Neutrophils (%) (Auto) 78H, Lymphocytes (%) (Auto) 7L, Monocytes (%) (Auto) 15H, Eosinophils (%) (Auto) 0, Basophils (%) (Auto) 0, Neutrophils # (Auto) 8.9H, Lymphocytes # (Auto) 0.8L, Monocytes # (Auto) 1.7H, Eosinophils # (Auto) 0.0, Basophils # (Auto) 0.0, Prothrombin Time 16.1H, INR Comment 1.3, Sodium Level 146H, Potassium Level 3.0L, Chloride Level 118H, Carbon Dioxide Level 19L, Anion Gap 9, Blood Urea Nitrogen 47H, Creatinine 0.83 , Estimat Glomerular Filtration Rate > 60, BUN/Creatinine Ratio 57, Glucose Level 111H, Calcium Level 8.0L, Phosphorus Level 3.0, Magnesium Level 1.7L, Total Bilirubin 0.5, Aspartate Amino Transf (AST/SGOT) 51H, Alanine Aminotransferase (ALT/SGPT) 45, Alkaline Phosphatase 127, Total Protein 4.4L, Albumin 1.9L, Triglycerides Level 85 11/09/17 11:18: Glucometer 176H Microbiology 11/01/17 Blood Culture - Final, Complete No growth 11/05/17 C. difficile GDH Antigen & Toxins - Final, Complete 10/30/17 MRSA Screen - Final, Complete MRSA not isolated Assessment/Plan Assessment/Plan Assess & Plan/Chief Complaint sigmoid diverticular stricture s/p sigmoid colectomy and en-bloc small bowel resection with anastomosis.. restart lovenox. PT and ambulate as much as possible. continue TPN due to significant malnutrition and hypoproteinemia. increase to regular diet. increase functional capacity with nutritional supplementation as well as PT and ambulation. ok for SNF transfer when criteria met. Clinical Quality Measures DVT/VTE Risk/Contraindication: Risk Factor Score Per Nursin RFS Level Per Nursing on Admit: 4+=Very High MIKE OTOOLE MD Nov 09, 2017 12:54
--- NOTE | 2017-11-09 15:00 | Discharge Summary ---
Diagnosis/Chief Complaint Date of Admission Oct 30, 2017 at 08:18 Date of Discharge Nov 09, 2017 at 14:46 Admission Diagnosis Admission Diagnosis Hypokalemia Hypomagnesemia Severe Anemia Sepsis Bilateral PNA Hypocalcemia Acute Renal Insufficiency GI Bleed Sigmoid Stricture Thrombocythemia Personal Hx of PE Protein Calorie Malnutrition Chronic Combined Systolic and Diastolic Heart Failure, without evidence of decompensation Risk for Falls Generalized Weakness Discharge Diagnosis 1) Sigmoid stricture Status: Chronic Assessment & Plan: 10/31 -biopsied by Dr. Contreras in Nov -not a surgical candidate in past given his overall poor health -consider CT scan to evaluate if stricture has become obstructing 11/02 -abnormal CT abd/pelvis although difficulty defining many structures due to lack of contrast -consult to Dr. Contreras, who has seen pt in the past for this 11/03/17 - Dr. Contreras plans to take patient to OR Sunday or Sunday; Dr. Oglesby covering this weekend. 11/06/17- plan for surgery today 11/07 s/p sigmoid resection, small bowel resection with anastomosis, enterorraphy - management per Dr. Contreras (2) Hypokalemia Status: Acute Assessment & Plan: 11/09- Initially on admit had severe difficult to replace hypokalemia, had resolved, recurrent today, will replace and recheck. (3) Hypomagnesemia Status: Acute Assessment & Plan: Replacing daily as needed (4) Hypocalcemia Status: Resolved (5) Acute renal failure Status: Resolved Qualifiers: Qualified Codes: N17.9 - Acute kidney failure, unspecified (6) Hypoalbuminemia Status: Acute Assessment & Plan: 10/30 1.8 11/02 -will replace q8h x24 hours 10/30 1.8 11/02 -will replace q8h x24 hours 11/06 chronic poor nutrition, on TPN now and taking oral (7) Severe anemia Status: Acute Assessment & Plan: 10/30 6.4 on admission transfused 2 units PRBC 11/04/17 - 2 U prbc ordered for today; Hb 7.6 11/09 stable (8) Thrombocythemia Status: Chronic Assessment & Plan: Consult to Dr. Hernandez 11/01- platelets currently low -plan is to hold hydroxyurea for some time -will continue to attempt to correct electrolytes -Dr. Hernandez consulted (9) History of pulmonary embolism Status: Chronic Permanent Comment: 03/2017 Last Edited By: Alisha San on Jun 22, 2017 14: 28 Assessment & Plan: 10/31 -home eliquis on hold today -will likely restart tomorrow if Hgb remains stable 11/01 -pt appears not to have been taking his eliquis at home -renal dosing lovenox started today (10) At risk for falls Status: Chronic Assessment & Plan: 10/31 -pt's living conditions not suitable for him to return home; will need placement at discharge 11/01 -pt spoke with social work and reported is willing to go to facility at discharge; they have begun seeking potential placement -pt reports his biggest goal is "to be clean" -expect that patient will do quite well with placement in a skilled facility where he is taken care of -family informed at admission that patient would not be able to return home, as he was not being adequately cared for, they were - for the most part - in agreement, son had some reservations because he did not think patient would be willing to go; discussed with son that patient would require placement at discharge and could not return home 11/02 -PT to eval and treat 11/09 Discharged to Swing bed for continued management (11) Chronic combined systolic and diastolic CHF (congestive heart failure) Status: Chronic Permanent Comment: Cardiac Cath 2014 with nonischemic cardiomyopathy and EF 40% Echocardiogram 01/2017 with aortic root mildly dilated, grade 1 diastolic dysfunction, EF 55-65% and hypokinesis inferior myocardium Stress test 01/2017 negative for ischemia, had predominantly fixed apical defect with mild reversability and low normal LV function Echo 11/03/17 - EF 40-45%; Pulmonary hypertension w/ pulm pressure 60-65mmHg Last Edited By: Nicole Currie on Nov 04, 2017 09:36 Assessment & Plan: 11/01 -appears stable, may consider repeat echo depending on pt's clinical course 11/05/17- Cardiology consult preop (12) Generalized weakness Status: Chronic Assessment & Plan: 11/01 -see above under at risk for falls (13) Sepsis Status: Acute Assessment & Plan: 10/31 -likely secondary to bilateral PNA 11/06- afebrile, CXR stable, no hypoxia, 7 day course of antibiotics will be completed, continue if desired based on surgery recommendations Qualifiers: Qualified Codes: A41.9 - Sepsis, unspecified organism (14) Protein calorie malnutrition Status: Chronic Assessment & Plan: 10/30 -prealbumin 10 in Jun 26 -will recheck in AM 11/01 -prealbumin pending 11/02 prealbumin now 7.5; consider TPN for additional nutrition 11/03/17 - pt has been started on TPN Qualifiers: Qualified Codes: E44.0 - Moderate protein-calorie malnutrition (15) GI bleed Status: Chronic Assessment & Plan: 10/31 -heme positive stools on admission -n chi bleeding noted -CT abd/pelvis in AM 11/02 -abnormal CT, consult to Dr. Contreras 11/04 - Hb generally stable at 7.6; transfuse 2U prbc in anticipation of surgery. Qualifiers: Qualified Codes: K92.2 - Gastrointestinal hemorrhage, unspecified (16) PNA (pneumonia) (17) Cellulitis of right upper extremity (18) Bilateral pleural effusion (19) Hypotension- resolved (20) Hyperphosphatemia Status: Resolved (21) Hypernatremia Status: Acute Assessment & Plan: 11/04/17 - electrolyte adjustment in TPN 11/06- persistent worsening, will stop sodium bicarb and start D5W at 100 mls/hr , recheck in 4 hours 11/07- improved to 149 with D5W yesterday, per pharmacy will add free water at 50 ml/hr in TPN 11/08- remains at 150, but received albumin which is similar to NS yesterday, will slightly increase TPN free water rate 11/08- improving, continue current TPN and monitor Chief Complaint/HPI Chief Complaint/HPI This 72-year-old gentleman presents to the emergency room via EMS after having difficulty ambulating in the home. EMS was under the impression that the patient had a fall but he denies falling. He states he would have fallen if his family hadn't helped support him. He is alert to person, place and age. He is disoriented to month. He is alert but appears weak and somewhat lethargic. He was hypotensive for EMS with a blood pressure of 76/52. Mucous membranes are dry. Blood pressure responded well to IV fluids. Blood pressure was 92/55 after 300 mL of normal saline. Patient has a distended abdomen and reported nausea area and EMS gave Zofran 4 mg IV. Patient thinks he may have been vomiting at home recently. Patient has been weak lately and has been requiring full assist assistance for ambulation from family. He has had multiple admissions within the last year for various problems including bowel obstruction from a colonic stricture and hypokalemia. [facility]. Documentation reviewed noted that patient has poor hygiene and inability to care for himself. However, he refused placement in a nursing or assisted care facility. It was noted that family also is unable to care for his needs. Patient arrives disheveled and infested with bedbugs and other bugs. Patient was seen the end of September in the ER for a suspected spider bite on the posterior left shoulder. Pt admitted to the ICU for further treatment. Discharge Summary-Simple/Stand Consultations Hematology Discharge Physical Examination Allergies: Coded Allergies: No Known Drug Allergies (Verified , 06/14/17) Vitals & I&Os Vital Sign - Last 12Hours Date Time Temp Pulse Resp B/P (MAP) Pulse Ox O2 Delivery O2 Flow Rate FiO2 11/09/17 12:00 97.3 76 20 137/83 (101) 93 Room Air 11/08/17 16:00 2.00 Intake and Output 11/09/17 00:00 Intake Total 1380 ml Output Total 1470 ml Balance -90 ml Hospital Course See final discharge diagnosis. Labs Laboratory Tests Test 11/07/17 21:45 11/08/17 04:30 11/09/17 05:25 11/09/17 11:18 Range/Units Sodium Level 150 H 150 H 146 H 135-145 MMOL/L Potassium Level 4.0 3.7 3.0 L 3.6-5.0 MMOL/L Chloride Level 122 H 121 H 118 H 98-107 MMOL/L Carbon Dioxide Level 21 20 L 19 L 21-32 MMOL/L Anion Gap 7 9 9 5-14 MMOL/L Blood Urea Nitrogen 48 H 48 H 47 H 7-18 MG/DL Creatinine 0.97 0.94 0.83 0.60-1.30 MG/DL Estimat Glomerular Filtration Rate > 60 > 60 > 60 BUN/Creatinine Ratio 49 51 57 Glucose Level 138 H 120 H 111 H 70-105 MG/DL Calcium Level 8.2 L 8.1 L 8.0 L 8.5-10.1 MG/DL White Blood Count 11.4 H 11.4 H 4.3-11.0 10^3/uL Red Blood Count 2.35 L 2.56 L 4.35-5.85 10^6/uL Hemoglobin 7.5 L 8.2 L 13.3-17.7 G/DL Hematocrit 23 L 25 L 40-54 % Mean Corpuscular Volume 99 99 80-99 FL Mean Corpuscular Hemoglobin 32 32 25-34 PG Mean Corpuscular Hemoglobin Concent 32 32 32-36 G/DL Red Cell Distribution Width 27.5 H 26.4 H 10.0-14.5 % Platelet Count 138 145 130-400 10^3/uL Mean Platelet Volume 7.4-10.4 FL Neutrophils (%) (Auto) 78 H 78 H 42-75 % Lymphocytes (%) (Auto) 8 L 7 L 12-44 % Monocytes (%) (Auto) 15 H 15 H 0-12 % Eosinophils (%) (Auto) 0 0 0-10 % Basophils (%) (Auto) 0 0 0-10 % Neutrophils # (Auto) 8.9 H 8.9 H 1.8-7.8 X 10^3 Lymphocytes # (Auto) 0.9 L 0.8 L 1.0-4.0 X 10^3 Monocytes # (Auto) 1.7 H 1.7 H 0.0-1.0 X 10^3 Eosinophils # (Auto) 0.0 0.0 0.0-0.3 10^3/uL Basophils # (Auto) 0.0 0.0 0.0-0.1 10^3/uL Phosphorus Level 3.5 3.0 2.3-4.7 MG/DL Magnesium Level 1.7 L 1.7 L 1.8-2.4 MG/DL Prothrombin Time 16.1 H 12.2-14.7 SEC INR Comment 1.3 0.8-1.4 Total Bilirubin 0.5 0.1-1.0 MG/DL Aspartate Amino Transf (AST/SGOT) 51 H 5-34 U/L Alanine Aminotransferase (ALT/SGPT) 45 0-55 U/L Alkaline Phosphatase 127 40-136 U/L Total Protein 4.4 L 6.4-8.2 GM/DL Albumin 1.9 L 3.2-4.5 GM/DL Triglycerides Level 85 <150 MG/DL Glucometer 176 H 70-110 MG/DL Radiology Reviewed Date of Exam: 10/31/17 CHEST 1 VIEW, AP/PA ONLY INDICATION: Anemia and renal failure and hypokalemia. Frontal chest obtained at 3:41 a.m. and compared to 10/30/2017 FINDINGS: The heart is enlarged and appears similar to the prior study. The right-sided PICC line is unchanged. There is bibasilar infiltrate which is unchanged compared to the prior study. There is a small amount of pleural fluid in the left costophrenic angle. This appears mildly decreased compared to yesterday. IMPRESSION: Cardiomegaly. Unchanged bibasilar infiltrates. Mild decrease in left pleural fluid compared to the prior study. Discharge Instructions to patient/family Please see electronic discharge instructions given to patient. Discharge Medications Reviewed and agree with Discharge Medication list on patient's Discharge Instruction sheet Clinical Quality Measures DVT/VTE Risk/Contraindication: Risk Factor Score Per Nursin RFS Level Per Nursing on Admit: 4+=Very High Copy Copies To 1: NJ Roberts BETHANY N MD Nov 09, 2017 15:00
[2017-11-09] MEDS ORDERED: [UNRECOGNIZED DRUG - OTHER] IV SCH ×10 (17:00)
[2017-11-09] MEDS ORDERED: POTASSIUM ACETATE IV SCH ×10 (17:00)
[2017-11-09] MEDS ORDERED: POTASSIUM PHOSPHATE IV SCH ×10 (17:00)
--- NOTE | 2017-11-09 18:38 | Progress Note-Cardiology ---
Cardiology SOAP Progress Note Subjective: Notes gen malaise and weakness No cp or palp or syncope Objective: I&O/Vital Signs 11/09/17 11/09/17 08:00 12:00 Temp 97.1 97.3 Pulse 86 76 Resp 20 20 B/P (MAP) 133/75 (94) 137/83 (101) Pulse Ox 91 93 O2 Delivery Room Air Room Air 11/09/17 00:00 Intake Total 1380 ml Output Total 1470 ml Balance -90 ml Weight (Pounds): 159 Weight (Ounces): 8.0 Weight (Calculated Kilograms): 72.348245 Constitutional: AAO x 3, well-developed, well-nourished Respiratory: No accessory muscle use, No respiratory distress; other (good bilat air entry, but diminished at the bases) Cardiovascular: regular rate-rhythm, S1 and S2, systolic murmur (soft AMERICA at card base) Gastrointestional: No tender; soft; No guarding, No rebound; audible bowel sounds Extremities: No clubbing, No cyanosis; significant edema (involving both upper and lower lims) Neurologic/Psychiatric: grossly intact (power is 4-5/5 bilat) Skin: normal color, warm/dry Results/Procedures: Labs Laboratory Tests 11/09/17 05:25: White Blood Count 11.4H, Red Blood Count 2.56L, Hemoglobin 8.2L, Hematocrit 25L , Mean Corpuscular Volume 99, Mean Corpuscular Hemoglobin 32, Mean Corpuscular Hemoglobin Concent 32, Red Cell Distribution Width 26.4H, Platelet Count 145, Mean Platelet Volume , Neutrophils (%) (Auto) 78H, Lymphocytes (%) (Auto) 7L, Monocytes (%) (Auto) 15H, Eosinophils (%) (Auto) 0, Basophils (%) (Auto) 0, Neutrophils # (Auto) 8.9H, Lymphocytes # (Auto) 0.8L, Monocytes # (Auto) 1.7H, Eosinophils # (Auto) 0.0, Basophils # (Auto) 0.0, Prothrombin Time 16.1H, INR Comment 1.3, Sodium Level 146H, Potassium Level 3.0L, Chloride Level 118H, Carbon Dioxide Level 19L, Anion Gap 9, Blood Urea Nitrogen 47H, Creatinine 0.83 , Estimat Glomerular Filtration Rate > 60, BUN/Creatinine Ratio 57, Glucose Level 111H, Calcium Level 8.0L, Phosphorus Level 3.0, Magnesium Level 1.7L, Total Bilirubin 0.5, Aspartate Amino Transf (AST/SGOT) 51H, Alanine Aminotransferase (ALT/SGPT) 45, Alkaline Phosphatase 127, Total Protein 4.4L, Albumin 1.9L, Triglycerides Level 85 11/09/17 11:18: Glucometer 176H Microbiology 11/01/17 Blood Culture - Final, Complete No growth 11/05/17 C. difficile GDH Antigen & Toxins - Final, Complete 10/30/17 MRSA Screen - Final, Complete MRSA not isolated A/P: Assessment: Sigmoid diverticular stricture; s/p sigmoid colectomy and en-bloc small bowel resection with anastomosis.. Chronic nonspecific chest pain; cardiac catheterization was done in August 2014 showing mild disease nonobstructive disease; had a stress test done on February 09, 2017 showing no significant ischemia Chronic systolic congestive heart failure, last echocardiogram of 11/04/17 showed ejection fraction 40-45 percent, mod MR, mod to severe TR, PASP 60-65 mmHg Anasarca due to poor nutritional state. Anemia, multifactorial, managed by Med and Heme/Onc Svce Mild bilateral carotid stenosis, last ultrasound was done in March 2016 H/o hyperlipidemia, at this time he is in poor nutritional status Electrolyte abnormalities, being corrected by the Med Svce Plan: * I examined him and reviewed his records. He suffers from multiple comorbidities and management is complex * Continue current regimen * Monitor labs ELENA JERONIMO MD FACP [facility] Nov 09, 2017 18:38
== END 2017-11-09 14:46 | disposition swing bed (61) | DRG 329 ==
LOC: EDUNIT# 06:37 → ER 06:38 → ICU 08:18 → 4TH 11-08 16:50
PROVIDERS: ADMIT Family Medicine; ATTEND Family Medicine
PROC: 0DQ80ZZ Repair Small Intestine, Open Approach (ICD-10-PCS; 2017-11-06)
PROC: 0WQF0ZZ Repair Abdominal Wall, Open Approach (ICD-10-PCS; 2017-11-06)
PROC: 0DBN0ZZ Excision of Sigmoid Colon, Open Approach (ICD-10-PCS; principal; 2017-11-06 11:28)
PROC: 0DB80ZZ Excision of Small Intestine, Open Approach (ICD-10-PCS; 2017-11-06 11:28)
DX: K56.51 Intestinal adhesions [bands], with partial obstruction (principal); A41.9 Sepsis, unspecified organism; J18.9 Pneumonia, unspecified organism; N17.9 Acute kidney failure, unspecified; R64 Cachexia; K92.2 Gastrointestinal hemorrhage, unspecified; E44.0 Moderate protein-calorie malnutrition; I11.0 Hypertensive heart disease with heart failure; I50.42 Chronic combined systolic (congestive) and diastolic (congestive) heart failure; L03.113 Cellulitis of right upper limb; E87.1 Hypo-osmolality and hyponatremia; S36.439A Laceration of unspecified part of small intestine, initial encounter; K43.2 Incisional hernia without obstruction or gangrene; E87.6 Hypokalemia; E83.42 Hypomagnesemia; E83.51 Hypocalcemia; D50.0 Iron deficiency anemia secondary to blood loss (chronic); D51.0 Vitamin B12 deficiency anemia due to intrinsic factor deficiency; D64.89 Other specified anemias; T45.1X5A Adverse effect of antineoplastic and immunosuppressive drugs, initial encounter; I95.9 Hypotension, unspecified; E88.09 Other disorders of plasma-protein metabolism, not elsewhere classified; B88.8 Other specified infestations; I25.10 Atherosclerotic heart disease of native coronary artery without angina pectoris; I73.9 Peripheral vascular disease, unspecified; K22.70 Barrett's esophagus without dysplasia; K44.9 Diaphragmatic hernia without obstruction or gangrene; N40.0 Benign prostatic hyperplasia without lower urinary tract symptoms; D47.3 Essential (hemorrhagic) thrombocythemia
CPT/HCPCS: 36415; 36569; 71045; 74176; 76937; 80048; 80051; 80053; 81000; 82140; 82274; 82330; 82962; 83605; 83735; 83880; 84100; 84132; 84134; 84466; 84478; 85007; 85025; 85027; 85610; 85730; 86141; 86850; 86900; 86901; 86920; 87040; 87081; 87324; 87328; 87329; 87449; 93306; 96365

== ENCOUNTER 2017-11-11 11:40 | Inpatient (IN) | payer MEDICARE, MEDICAID ==
[~2017-11-11] VITALS: Ht 167.6 cm; Wt 58.3 kg
[~2017-11-11 11:40] MED LIST changes: +POTA20LI3 PO
[2017-11-11] MEDS ORDERED: VANCOMYCIN INJECTION 1,500 MG in NS IV 500 ML 500 ML IV ONE (11:50)
[2017-11-11 12:00] VITALS: BP 126/84
[2017-11-11] MEDS ORDERED: PHARMACY TO DOSE IV SCH (12:00)
[2017-11-11] MEDS ORDERED: HYDROcodone/APAP 7.5 MG/325 MG (LORTAB, LORCET PLUS) TABLET PO PRN (12:00)
[2017-11-11] MEDS ORDERED: ONDANSETRON 4 MG/2 ML (SDV) Z0FRAN IVP PRN (12:00)
--- NOTE | 2017-11-11 12:19 | History & Physicial (CHS) ---
HPI History of Present Illness: 72 year old male who was admitted to swing bed for continued management after sigmoid resection, small bowel resection with anastamosis and enterorraphy 11/[address] Contreras. Originally hospitalized with anemia, hypotension, profound electrolyte imbalances, acute renal failure on 10/30. Over the last 24 hours patient has developed altered mental status, hypoxia requiring supplemental oxygen, and CXR that showed persistent bilateral infiltrate, with worsening on right compared to CXR 11/09. CXR this AM also showed bilateral effusions. When seen at the time of exam, patient restless, pulling at things and reaching into the air, saying "the shadows are telling him things" and thinking that he was in a racecar driving with his dad. Unable to be redirected, and has become altered enough that he is currently requiring a sitter for safety. Based on his change in clinical status, he has been admitted back to inpatient for management, due to his acuity of illness. Source: RN/MD, RN notes reviewed, old records Exam Limitations: clinical condition Date seen by provider: Nov 11, 2017 Time Seen by Provider: 11:05 Attending Physician Nadia Rodriguez DO [facility] [place] Consult General Surgery - continued post op management Date of Admission Nov 11, 2017 at 11:40 Home Medications Home Medications Reviewed patient Home Medication Reconciliation performed by pharmacy medication reconciliations dictaphone technician and/or nursing. Patients Allergies have been reviewed. Allergies Coded Allergies: No Known Drug Allergies (Verified , 06/14/17) [id number]-[id number] Hx Patient Social History Marrital Status: Living Status: lived at home with son and grandson, plan for discharge is SNF placement Employed/Student: retired Alcohol Use: Denies Use Recreational Drug Use: No Smoking Status: Never a Smoker 2nd Hand Smoke Exposure: No Recent Foreign Travel: No Contact w/other who traveled: No Recent Hopitalizations: Yes (admitted 10/30/17, discharged to swing 11/09/17) Immunizations Up To Date Tetanus Booster (TDap): Unknown Past Medical History PMHx: HTN Chronic non-ischemic systolic heart failure GERD Thrombocythemia Anemia Intermittent renal insufficiency BPH Posterior tibial vein thrombosis Pernicious anemia/B12 deficiency Rodrigues's esophagus Pulmonary embolism Sigmoid lesion nearly obstructive, biopsied 03/2017 PSurgHx: Right hip replacement Gastrectomy Splenectomy Appendectomy Multiple EGD/colonoscopies Sigmoid lesion biopsy Small bowel resection with anastamosis, enterorraphy - 11/06/17 per Kido Family Medical History Significant Family History: No Pertinent Family Hx Review of Systems ([facility]) Constitutional: see HPI EENTM: no symptoms reported Respiratory: see HPI Cardiovascular: no symptoms reported Gastrointestinal: no symptoms reported Genitourinary: no symptoms reported Musculoskeletal: no symptoms reported Skin: no symptoms reported Psychiatric/Neurological: See HPI Reviewed Test Results Reviewed Test Results Lab Test 11/10/17 05:10 11/10/17 05:18 11/11/17 05:00 Range/Units White Blood Count 12.2 H 11.4 H 4.3-11.0 10^3/uL Red Blood Count 2.60 L 2.36 L 4.35-5.85 10^6/uL Hemoglobin 8.2 L 7.5 L 13.3-17.7 G/DL Hematocrit 26 L 23 L 40-54 % Mean Corpuscular Volume 99 99 80-99 FL Mean Corpuscular Hemoglobin 32 32 25-34 PG Mean Corpuscular Hemoglobin Concent 32 32 32-36 G/DL Red Cell Distribution Width 27.0 H 26.9 H 10.0-14.5 % Platelet Count 169 187 130-400 10^3/uL Mean Platelet Volume 13.5 H 7.4-10.4 FL Sodium Level 147 H 144 135-145 MMOL/L Potassium Level 3.3 L 4.5 3.6-5.0 MMOL/L Chloride Level 117 H 116 H 98-107 MMOL/L Carbon Dioxide Level 20 L 21 21-32 MMOL/L Anion Gap 10 7 5-14 MMOL/L Blood Urea Nitrogen 42 H 38 H 7-18 MG/DL Creatinine 0.72 0.63 0.60-1.30 MG/DL Estimat Glomerular Filtration Rate > 60 > 60 BUN/Creatinine Ratio 58 60 Glucose Level 116 H 89 70-105 MG/DL Calcium Level 7.9 L 7.9 L 8.5-10.1 MG/DL Phosphorus Level 2.5 2.9 2.3-4.7 MG/DL Magnesium Level 1.9 1.6 L 1.8-2.4 MG/DL Glucometer 142 H 70-110 MG/DL Radiology Date of Exam: 11/11/17 CHEST 1 VIEW, AP/PA ONLY Indication: Dyspnea Portable chest shows normal heart size and vascularity. There is bilateral airspace disease consistent with infiltrates. There are bilateral pleural effusions. Slightly more consolidation in the right lung infiltrate compared to 11/09/2017 study. Impression: There are bilateral infiltrates and effusions with slightly more infiltrate in the right lung compared to the prior exam. Physical Exam-([facility]) Physical Exam Vital Signs VS - Last 72 Hours, by Label 11/11/17 11/11/17 11/11/17 11/11/17 12:00 12:50 12:59 14:43 Temp 96.9 Pulse 81 81 85 Resp 20 B/P (MAP) 126/84 (98) Pulse Ox 98 95 93 O2 Delivery Nasal Cannula Nasal Cannula O2 Flow Rate 3.00 3.00 FiO2 32 11/11/17 11/11/17 11/11/17 15:32 15:42 18:48 Temp 96.2 Pulse 86 Resp 16 B/P (MAP) 132/83 (99) Pulse Ox 95 93 O2 Delivery Nasal Cannula Nasal Cannula O2 Flow Rate 3.00 3.00 Capillary Refill : General Appearance: mild distress Eyes: Bilateral Eye Normal Inspection, Bilateral Eye EOMI HEENT: No scleral icterus (R), No scleral icterus (L), No photophobia Neck: non-tender, full range of motion, supple, normal inspection Respiratory: chest non-tender, no accessory muscle use, decreased breath sounds Cardiovascular: regular rate, rhythm, no gallop, no JVD, JVD, tachycardia Gastrointestinal: normal bowel sounds, non tender, soft, no organomegaly, no pulsatile mass; No distended, No guarding, No rebound Extremities: normal range of motion, non-tender, normal inspection, no pedal edema, no calf tenderness, slow capillary refill, swelling (upper extremities with mild edema) Neurologic/Psychiatric: sheet writer II-XII nml as tested, disoriented x 3 Skin: warm/dry, pallor Assessment/Plan Assessment/Plan Admission Dx Sepsis HCAP with worsening right infiltrate Bilateral Pleural Effusion Altered Mental Status Hypoxia requiring Supplemental Oxygen s/p small bowel resection with anastamosis, enterorraphy Anemia Thrombocythemia Hx of Pulmonary Embolism Chronic Combined Systolic and Diastolic Heart Failure Pulmonary Hypertension Protein Calorie Malnutrition Weakness Admission Status: Inpatient Order (span 2 midnights) Reason for Inpatient Admission: treatment of inpatient conditions, which will require a minimum of two midnights; pts delirium and general fragile state put him at extremely high risk for decompensation (1) Sepsis Status: Acute Assessment & Plan: 11/11 -secondary to HCAP -see below for details Qualifiers: Qualified Codes: A41.9 - Sepsis, unspecified organism (2) HCAP (healthcare-associated pneumonia) Status: Acute Assessment & Plan: 11/11 -CXR this AM with bilateral infiltrates and effusions, right infiltrate worse than on previous CXR 11/09 -Cefepime, Levaquin and Vanc started -WBC 11.4 this AM -Hypoxia requiring supplemental oxygen -will follow closely, patient at high risk for decompensation -of note, patient did receive cefepime 10/31-11/06, levaquin 11/01-11/06, flagyl and ancef 11/06 (3) Bilateral pleural effusion Status: Acute Assessment & Plan: 11/11 -persistent, also noted on CXR and CT from initial admission -lasix 40 mg IVP x1 this AM (4) Altered mental status Status: Acute Assessment & Plan: 11/11 -seroquel 25 mg PO this AM -suspect secondary to HCAP, as pt has acutely decompensated -start seroquel 25 mg at HS tonight -haldol 5 mg q4H prn agitation -sitter as needed for safety -pt at high risk for decompensation Qualifiers: Qualified Codes: R41.0 - Disorientation, unspecified (5) Hypoxia Status: Acute Assessment & Plan: 11/11 -early this AM sats reportedly 88% on room air and patient placed on 3L NC; yesterday sats 90-91% on room air per documentation review -suspect secondary to HCAP, possibly also effusions, treatment as above (6) S/P small bowel resection Status: Acute Assessment & Plan: 11/11 -POD 5 s/p sigmoid stricture resection, small bowel resection with anastamosis, enterorraphy per Dr. Contreras -abdominal incision closed with morales, edges well approximated and without drainage or signs of infection; drain in place -consult to general surgery for continued post op management -as patient did have recent abdominal surgery, if he does not show improvement with HCAP treatment as outlined above, may want to consider adding Flagyl (7) Hyperchloremia Status: Acute Assessment & Plan: 11/11 -117 --> 116 -on TPN -continue to monitor (8) Hypocalcemia Status: Acute Assessment & Plan: 11/11 -7.9 --> 7.9 -on TPN -continue to monitor (9) Hypomagnesemia Status: Acute Assessment & Plan: 11/11 -1.6 -replaced -on TPN, will continue to monitor (10) Protein calorie malnutrition Status: Chronic Assessment & Plan: 11/11 -significant loss of functional capacity, muscle wasting, profoundly inadequate intake on admission -prealbumin 7.5 on 11/02, TPN started and continues Qualifiers: Qualified Codes: E43 - Unspecified severe protein-calorie malnutrition (11) History of pulmonary embolism Status: Chronic Permanent Comment: 03/2017 Last Edited By: Alisha San on Jun 22, 2017 14: 28 Assessment & Plan: 11/11 -occurred while hospitalized in March -pt was on Eliquis BID, but stopped taking at some point prior to admission -routine DVT prophylaxis (12) Pulmonary hypertension Status: Chronic Permanent Comment: per echo 11/05/17 Last Edited By: Nadia Rodriguez on Nov 11, 2017 19:51 (13) Chronic combined systolic and diastolic CHF (congestive heart failure) Status: Chronic Permanent Comment: Cardiac Cath 2014 with nonischemic cardiomyopathy and EF 40% Echocardiogram 01/2017 with aortic root mildly dilated, grade 1 diastolic dysfunction, EF 55-65% and hypokinesis inferior myocardium Stress test 01/2017 negative for ischemia, had predominantly fixed apical defect with mild reversability and low normal LV function Echo 11/03/17 - EF 40-45%; Pulmonary hypertension w/ pulm pressure 60-65mmHg Last Edited By: Nicole Currie on Nov 04, 2017 09:36 (14) DVT prophylaxis Status: Acute Assessment & Plan: 11/11 -Lovenox 40 mg SQ daily Copy Copies To 1: [facility]/NADIA FOY DO Nov 11, 2017 12:19
[2017-11-11 12:50] VITALS: BP 126/84
[2017-11-11] MEDS ORDERED: RT-ALBUTEROL/IPRATROPIUM 3 ML (DUONEB) VIAL INH PRN (13:15)
[2017-11-11] MEDS ORDERED: [UNRECOGNIZED DRUG - OTHER] IV SCH ×10 (13:17)
[2017-11-11] MEDS ORDERED: POTASSIUM PHOSPHATE IV SCH ×10 (13:17)
[2017-11-11] MEDS ORDERED: POTASSIUM ACETATE IV SCH ×10 (13:17)
[2017-11-11] MEDS: CEFEPIME INJECTION 2,000 MG in NS (IVPB) 50 ML IV SCH ×2 (14:38→21:32)
[2017-11-11] MEDS: RT-ALBUTEROL/IPRATROPIUM 3 ML (DUONEB) VIAL INH SCH ×3 (14:43→22:44)
--- NOTE | 2017-11-11 15:22 | Progress Note ---
Subjective Date Seen by Provider: Nov 11, 2017 Time Seen by Provider: 08:55 Subjective/Events-last exam Patient with slight confusion. Pain controlled. No family at bedside wbc down today 11.4 Objective Exam Vital Signs Date Time Temp Pulse Resp B/P (MAP) Pulse Ox O2 Delivery O2 Flow Rate FiO2 11/11/17 14:43 93 Nasal Cannula 3.00 11/11/17 12:59 85 11/11/17 12:50 81 95 32 11/11/17 12:00 96.9 81 20 126/84 (98) 98 Nasal Cannula 3.00 Capillary Refill : General Appearance: No Apparent Distress HEENT: Normal ENT Inspection Neck: Supple Respiratory: No Accessory Muscle Use, No Respiratory Distress Cardiovascular: Regular Rate, Rhythm Gastrointestinal: soft, tenderness (incisional, jaya more serous) Extremity: Normal Inspection Neurologic/Psychiatric: Alert (slight confusion) Skin: Warm/Dry Lymphatic: No Adenopathy Assessment/Plan Assessment/Plan Assessment/Plan s/p sigmoid resection for benign stricture planning placement this week continue medical management. Clinical Quality Measures DVT/VTE Risk/Contraindication: Risk Factor Score Per Nursin RFS Level Per Nursing on Admit: 4+=Very High JULISA STOLL DO Nov 11, 2017 15:22
[2017-11-11 15:32] VITALS: BP 132/83
[2017-11-11] MEDS: POTASSIUM ACETATE IV SCH ×9 (17:00)
[2017-11-11] MEDS: [UNRECOGNIZED DRUG - OTHER] IV SCH ×9 (17:00)
[2017-11-11] MEDS: POTASSIUM PHOSPHATE IV SCH ×9 (17:00)
[2017-11-11] MEDS: IRON POLYSAC 150 MG CAP (NIFEREX) PO SCH (17:00)
[2017-11-11 19:52] VITALS: BP 110/74
[2017-11-11] MEDS: QUEtiapine 25 MG (SEROquel) TAB IMMEDIATE RELEASE PO SCH (20:49)
[2017-11-11] MEDS: ENOXAPARIN 40 MG/0.4 ML (LOVENOX) SYR SC SCH (20:49)
[2017-11-12] VITALS (10 sets, daily range): BP systolic 97–133; BP diastolic 57–81
[2017-11-12] MEDS: HALOPERIDOL 5 MG/ML (HALDOL) AMP IV PRN (00:22)
[2017-11-12] MEDS: RT-ALBUTEROL/IPRATROPIUM 3 ML (DUONEB) VIAL INH SCH ×6 (02:28→21:33)
[2017-11-12] MEDS: fentaNYL INJECTION 100 MCG/2 ML AMP IVP PRN (03:36)
[2017-11-12] MEDS: CEFEPIME INJECTION 2,000 MG in NS (IVPB) 50 ML IV SCH (05:55)
[2017-11-12] MEDS: IRON POLYSAC 150 MG CAP (NIFEREX) PO SCH ×2 (05:55→16:54)
[2017-11-12 06:08] LABS: BASOPHILS % (AUTO) 0 % (0-10); EOSINOPHILS % (AUTO) 0 % (0-10); HEMATOCRIT 22 % (40-54); LYMPHOCYTES # (AUTO) 0.8 X 10^3 (1.0-4.0); LYMPHOCYTES % (AUTO) 7 % (12-44); MEAN CORPUSCULAR HEMOGLOBIN 31 PG (25-34); MEAN CORPUSCULAR HGB CONC 31 G/DL (32-36); MEAN CORPUSCULAR VOLUME 100 FL (80-99); MONOCYTES # (AUTO) 1.3 X 10^3 (0.0-1.0); MONOCYTES % (AUTO) 12 % (0-12); NEUTROPHILS # (AUTO) 8.2 X 10^3 (1.8-7.8); NEUTROPHILS % (AUTO) 80 % (42-75); PLATELET COUNT 183 10^3/uL (130-400); RED BLOOD COUNT 2.15 10^6/uL (4.35-5.85); RED CELL DISTRIBUTION WIDTH 27.7 % (10.0-14.5); WHITE BLOOD COUNT 10.3 10^3/uL (4.3-11.0)
[2017-11-12 06:20] LABS: BUN/CREATININE RATIO 59; CALCIUM 7.8 MG/DL (8.5-10.1); CARBON DIOXIDE 24 MMOL/L (21-32); CHLORIDE 112 MMOL/L (98-107); CREATININE SERUM 0.64 MG/DL (0.60-1.30); GFR ESTIMATED > 60; GLUCOSE 114 MG/DL (70-105); PHOSPHORUS 3.3 MG/DL (2.3-4.7); POTASSIUM 4.7 MMOL/L (3.6-5.0); SODIUM 143 MMOL/L (135-145)
[2017-11-12 06:26] LABS: HEMOGLOBIN 6.7 G/DL (13.3-17.7)
[2017-11-12 06:27] LABS: BAND NEUTROPHILS 0 %; BASOPHILS % (MANUAL) 0 %; EOSINOPHILS % (MANUAL) 0 %; LYMPHOCYTES % (MANUAL) 8 %; METAMYELOCYTES % 1 %; MONOCYTES % (MANUAL) 10 %; MYELOCYTES % 1 %; NEUTROPHILS % (MANUAL) 80 %
[2017-11-12 06:28] LABS: ANISOCYTOSIS MARKED; ELLIPT/OVALOCYTES SLIGHT; HYPOCHROMASIA MODERATE; MICROCYTOSIS SLIGHT; POIKILOCYTOSIS SLIGHT; POLYCHROMASIA SLIGHT; TARGET CELLS SLIGHT; TEAR DROP CELLS SLIGHT
[2017-11-12] MEDS ORDERED: NS IV 500 ML 500 ML IV ONE (07:30)
[2017-11-12] MEDS: PANTOPRAZOLE 40 MG/10 ML (PROTONIX) VIAL IV SCH (08:03)
--- NOTE | 2017-11-12 09:24 | Progress Note-Hospitalist ---
Subjective HPI/CC On Admission Date Seen by Provider: Nov 12, 2017 Time Seen by Provider: 09:30 Subjective/Events-last exam Patient appears to be at the end-stage of his life Sitting up in chair but confused and very cachectic Will have palliative care nurse evaluate and recommend DO NOT RESUSCITATE and it appears he is a hospice candidate Patient does not wake up during my interview or exam. Checked meds and labs Review of Systems Neurological: Confusion Objective Exam Vital Signs Vital Signs Date Time Temp Pulse Resp B/P (MAP) Pulse Ox O2 Delivery O2 Flow Rate FiO2 11/12/17 09:30 96.0 11/12/17 09:26 77 118/76 11/12/17 09:14 20 96 3.00 11/12/17 08:45 Nasal Cannula 11/11/17 12:50 32 Capillary Refill : Less Than 3 Seconds General Appearance: No Apparent Distress, WD/WN, Cachetic Neck: Normal Inspection, Non Tender Respiratory: Crackles, Decreased Breath Sounds Cardiovascular: Regular Rate, Rhythm, No Edema Extremity: Pedal Edema Neurologic/Psychiatric: Disoriented Skin: Normal Color, Warm/Dry Results/Procedures Lab Laboratory Tests 11/12/17 05:45 Patient resulted labs reviewed. Assessment/Plan Assessment and Plan Assess & Plan/Chief Complaint Assessment: End-stage life status Previous colon resection Confusion Poor social situation Plan: Palliative care consult Recommend DO NOT RESUSCITATE Patient obviously a hospice candidate we'll try to arrange Diagnosis/Problems Diagnosis/Problems (1) HCAP (healthcare-associated pneumonia) Status: Acute (2) Altered mental status Status: Acute Qualifiers: Altered mental status type: delirium Qualified Codes: R41.0 - Disorientation, unspecified (3) Hypoxia Status: Acute (4) Chronic combined systolic and diastolic CHF (congestive heart failure) Status: Chronic Permanent Comment: Cardiac Cath 2014 with nonischemic cardiomyopathy and EF 40% Echocardiogram 01/2017 with aortic root mildly dilated, grade 1 diastolic dysfunction, EF 55-65% and hypokinesis inferior myocardium Stress test 01/2017 negative for ischemia, had predominantly fixed apical defect with mild reversability and low normal LV function Echo 11/03/17 - EF 40-45%; Pulmonary hypertension w/ pulm pressure 60-65mmHg Last Edited By: Nicole Currie on Nov 04, 2017 09:36 (5) Poor prognosis Status: Chronic (6) End of life care Status: Acute (7) Cachexia Status: Chronic (8) Anemia Status: Acute Qualifiers: Anemia type: iron deficiency Iron deficiency anemia type: chronic blood loss Qualified Codes: D50.0 - Iron deficiency anemia secondary to blood loss ( chronic) (9) Transfusion of blood during current hospitalisation Status: Acute Clinical Quality Measures DVT/VTE Risk/Contraindication: Risk Factor Score Per Nursin RFS Level Per Nursing on Admit: 4+=Very High MARIA DEL ROSARIO MO DO Nov 12, 2017 09:24
[2017-11-12] MEDS: ASPIRIN E.C. 81 MG (ECOTRIN) TAB PO SCH (09:51)
[2017-11-12] MEDS ORDERED: LEVOFLOXACIN 750 MG/150 ML IV 150 ML IV SCH (10:30)
[2017-11-12] MEDS ORDERED: PIPERACILLIN/TAZOBACTAM 3.375 GM in D5W 100 ML IVPB 100 ML IV ONE (11:00)
[2017-11-12] MEDS: VANCOMYCIN INJECTION 1,000 MG in NS (IVPB) 250 ML IV SCH (11:22)
--- NOTE | 2017-11-12 13:55 | Physical Therapy Evaluation ---
PT Evaluation-General Medical Diagnosis Admission Date Nov 11, 2017 at 11:40 Medical Diagnosis: anemia; sepsis Onset Date: Nov 11, 2017 Therapy Diagnosis Therapy Diagnosis: weakness Height/Weight Height (Feet): 5 Height (Inches): 6.00 Weight (Pounds): 131 Weight (Ounces): 7.0 Precautions Precautions/Isolations: Fall Prevention, Standard Precautions, Pressure Ulcer Referral Physician: Michael Reason for Referral: Evaluation/Treatment Medical History Pertinent Medical History: Arthritis, CAD, Diverticulitis, GERD, Heart Failure , HTN, PVD, Renal Insufficiency Current History Pt has had a fairly complicated medical stay that started with an acute admission, transfer to [facility] status and then return to acute status--due to AMS. Reviewed History: Yes Social History Home: Single Level Current Living Status: Other Family pt is a poor historian and unable to report. Prior/Core FIM Prior Level of Function Functional [place] Measure 0=Not Assessed/NA 4=Minimal Assistance 1=Total Assistance 5=Supervision or Setup 2=Maximal Assistance 6=Modified [place] 3=Moderate Assistance 7=Complete [place] Bed Mobility: 6 Transfers (B,C,W/C) (FIM): 6 Gait: 6 Prior records indicate he was living with his son and grandson PT Evaluation-Current Subjective No verbalization. He does follow cues. Objective Patient Orientation: Confused Problem Solving: Poor Attachments: Cheng Catheter, IV ROM/Strength ROM Lower Extremities wFL Strength Lower Extremities grossly 3/5 throughout Integumentary/Posture Integumentary refer to nursing notes. Bowel Incontinence: Yes Bladder Incontinence: Cheng Cath Posture rounded shoulders Neuromuscular (Tone, Coordination, Reflexes) impaired Sensory Vision: Functional Hearing: Functional Hand Dominance: Right Sensation Right Lower Extremit: Intact Sensation Left Lower Extremity: Intact Transfers Functional [place] Measure 0=Not Assessed/NA 4=Minimal Assistance 1=Total Assistance 5=Supervision or Setup 2=Maximal Assistance 6=Modified [place] 3=Moderate Assistance 7=Complete [place] Transfers (B, C, W/C) (FIM): 2 sit to stand with max assist; pt remained standing x 4 minutes with mod assist; pericare performed with additional assist as pt had been incont of bowel. Gait Mode of Locomotion: Both Anticipated Mode of Locomotion: Both Gait (FIM): 0 (unable this visit) Balance Sitting Static: Fair Sitting Dynamic: Fair Standing Static: Poor Standing Dynamic: Poor Treatment standing at edge of chair while tracy care performed Assessment/Needs Pt presents with gross functional weakness with impaired ability to problem solve and mobilize without heavy assist. he will benefit from PT to work on functional mobility to maximize his participation within his environment and self care. Rehab Potential: Poor PT Bottle Washer Goals Bottle Washer Goals PT Snf Goals Time Frame: Nov 19, 2017 Transfers (B,C,W/C) (FIM): 4 Gait (FIM): 2 Gait distance (FIM): 1=up to 49 ft Gait Assistive Device: FWW PT Plan Problem List Problem List: Activity Tolerance, Functional Strength, Safety, Balance, Gait, Transfer, Bed Mobility Treatment/Plan Treatment Plan: Continue Plan of Care Treatment Plan: Bed Mobility, Education, Functional Activity Perri, Functional Strength, Gait, Safety, Therapeutic Exercise, Transfers Treatment Duration: Nov 19, 2017 Frequency: 5 times per week Estimated Hrs Per Day: .25 hour per day Patient and/or Family Agrees t: Yes Safety Risks/Education Patient Education: Safety Issues Teaching Recipient: Patient Teaching Methods: Discussion Response to Teaching: Reinforcement Needed Discharge Recommendations Therapy D/C Recommendations: Detention (TCU/NH) Time/GCodes Time In: 1005 Time Out: 1020 Total Billed Treatment Time: 15 Total Billed Treatment vsiit EVM 15 MISSY ALCALA PT Nov 12, 2017 13:55
--- NOTE | 2017-11-12 16:37 | Progress Note (SOAP) ---
Subjective Date Seen by Provider: Nov 12, 2017 Time Seen by Provider: 16:30 Subjective/Events-last exam doing ok, confusion yesterday, Hb low however no clinical bleed. given 1 unit today. tolerating diet and having BM's daily. Objective Exam Vital Signs Date Time Temp Pulse Resp B/P (MAP) Pulse Ox O2 Delivery O2 Flow Rate FiO2 11/12/17 14:44 97 Nasal Cannula 3.00 11/12/17 13:00 76 11/12/17 12:11 96.6 88 16 110/70 (83) 100 Nasal Cannula 3.00 11/12/17 12:05 96.6 88 110/70 11/12/17 10:41 95 Nasal Cannula 3.00 11/12/17 09:30 96.0 11/12/17 09:26 77 118/76 11/12/17 09:25 77 118/76 11/12/17 09:14 99 20 121/57 96 3.00 11/12/17 08:45 99 Nasal Cannula 3.00 11/12/17 07:56 96.8 85 18 122/79 (93) 98 Nasal Cannula 3.00 11/12/17 07:00 94 Nasal Cannula 3.00 11/12/17 07:00 86 11/12/17 04:30 97.0 95 18 133/81 (98) 92 Nasal Cannula 3.00 11/12/17 01:09 98 11/12/17 00:32 96.7 92 19 126/78 (94) 91 Nasal Cannula 3.00 11/11/17 22:45 92 Nasal Cannula 3.00 11/11/17 20:49 Nasal Cannula 3.00 11/11/17 19:52 97.5 99 16 110/74 (86) 96 Nasal Cannula 3.00 11/11/17 18:48 93 Nasal Cannula 3.00 I & O 11/12/17 07:00 Intake Total 3260 ml Output Total 6890 ml Balance -3630 ml Capillary Refill : Less Than 3 Seconds General Appearance: No Apparent Distress HEENT: PERRL/EOMI Neck: Full Range of Motion Respiratory: Chest Non Tender, Normal Breath Sounds Cardiovascular: Regular Rate, Rhythm Gastrointestinal: normal bowel sounds, non tender, soft Extremity: Normal Capillary Refill Neurologic/Psychiatric: Alert, Oriented x3 Skin: Normal Color Lymphatic: No Adenopathy Results Lab Laboratory Tests 11/12/17 05:45: White Blood Count 10.3, Red Blood Count 2.15L, Hemoglobin 6.7*L, Hematocrit 22L , Mean Corpuscular Volume 100H, Mean Corpuscular Hemoglobin 31, Mean Corpuscular Hemoglobin Concent 31L, Red Cell Distribution Width 27.7H, Platelet Count 183, Mean Platelet Volume , Neutrophils (%) (Auto) 80H, Lymphocytes (%) ( Auto) 7L, Monocytes (%) (Auto) 12, Eosinophils (%) (Auto) 0, Basophils (%) (Auto ) 0, Neutrophils # (Auto) 8.2H, Lymphocytes # (Auto) 0.8L, Monocytes # (Auto) 1.3H, Eosinophils # (Auto) 0.0, Basophils # (Auto) 0.0, Neutrophils % (Manual) 80, Lymphocytes % (Manual) 8, Monocytes % (Manual) 10, Eosinophils % (Manual) 0 , Basophils % (Manual) 0, Metamyelocytes % 1, Myelocytes % 1, Band Neutrophils 0 , Polychromasia SLIGHT, Hypochromasia MODERATE, Poikilocytosis SLIGHT, Anisocytosis MARKED, Microcytosis SLIGHT, Macrocytosis MODERATE, Target Cells SLIGHT, Tear Drop Cells SLIGHT, Elliptocytes SLIGHT, Sodium Level 143, Potassium Level 4.7, Chloride Level 112H, Carbon Dioxide Level 24, Anion Gap 7, Blood Urea Nitrogen 38H, Creatinine 0.64, Estimat Glomerular Filtration Rate > 60, BUN/Creatinine Ratio 59, Glucose Level 114H, Calcium Level 7.8L, Phosphorus Level 3.3, Magnesium Level 2.0 Assessment/Plan Assessment/Plan Assess & Plan/Chief Complaint s/p sigmoid colon resection and en-bloc SB resection. malnutrition. hypoproteinemia causing interstitial edema and ascites. continue PT and nutritional supplementation. Clinical Quality Measures DVT/VTE Risk/Contraindication: Risk Factor Score Per Nursin RFS Level Per Nursing on Admit: 4+=Very High MIKE OTOOLE MD Nov 12, 2017 16:37
[2017-11-12] MEDS: POTASSIUM ACETATE IV SCH ×9 (16:41)
[2017-11-12] MEDS: POTASSIUM PHOSPHATE IV SCH ×9 (16:41)
[2017-11-12] MEDS: [UNRECOGNIZED DRUG - OTHER] IV SCH ×9 (16:41)
[2017-11-12] MEDS: PIPERACILLIN/TAZOBACTAM 3.375 GM in D5W 100 ML IVPB 100 ML IV SCH (16:53)
[2017-11-12] MEDS ORDERED: ZINC OXIDE 16% OINT (BUTT PASTE) 113 GM TUBE TOP PRN (19:00)
[2017-11-12] MEDS: QUEtiapine 25 MG (SEROquel) TAB IMMEDIATE RELEASE PO SCH (20:13)
[2017-11-12] MEDS: ENOXAPARIN 40 MG/0.4 ML (LOVENOX) SYR SC SCH (20:13)
[2017-11-13 00:06] VITALS: BP 112/70
[2017-11-13] MEDS: PIPERACILLIN/TAZOBACTAM 3.375 GM in D5W 100 ML IVPB 100 ML IV SCH ×3 (00:47→16:58)
[2017-11-13] MEDS: RT-ALBUTEROL/IPRATROPIUM 3 ML (DUONEB) VIAL INH SCH ×6 (02:14→21:50)
[2017-11-13 04:02] VITALS: BP 115/73
[2017-11-13 05:50] LABS: BASOPHILS % (AUTO) 0 % (0-10); EOSINOPHILS # (AUTO) 0.1 10^3/uL (0.0-0.3); EOSINOPHILS % (AUTO) 1 % (0-10); HEMATOCRIT 24 % (40-54); HEMOGLOBIN 7.6 G/DL (13.3-17.7); LYMPHOCYTES # (AUTO) 0.8 X 10^3 (1.0-4.0); LYMPHOCYTES % (AUTO) 9 % (12-44); MEAN CORPUSCULAR HEMOGLOBIN 32 PG (25-34); MEAN CORPUSCULAR HGB CONC 32 G/DL (32-36); MEAN CORPUSCULAR VOLUME 98 FL (80-99); MEAN PLATELET VOLUME 13.2 FL (7.4-10.4); MONOCYTES # (AUTO) 1.3 X 10^3 (0.0-1.0); MONOCYTES % (AUTO) 15 % (0-12); NEUTROPHILS # (AUTO) 6.5 X 10^3 (1.8-7.8); NEUTROPHILS % (AUTO) 75 % (42-75); PLATELET COUNT 200 10^3/uL (130-400); RED CELL DISTRIBUTION WIDTH 26.3 % (10.0-14.5); WHITE BLOOD COUNT 8.6 10^3/uL (4.3-11.0)
[2017-11-13 06:08] LABS: BUN/CREATININE RATIO 51; CALCIUM 7.9 MG/DL (8.5-10.1); CARBON DIOXIDE 22 MMOL/L (21-32); CHLORIDE 114 MMOL/L (98-107); CREATININE SERUM 0.67 MG/DL (0.60-1.30); GFR ESTIMATED > 60; GLUCOSE 85 MG/DL (70-105); PHOSPHORUS 3.6 MG/DL (2.3-4.7); POTASSIUM 4.6 MMOL/L (3.6-5.0); SODIUM 145 MMOL/L (135-145)
[2017-11-13 08:00] VITALS: BP 116/69
[2017-11-13] MEDS: PANTOPRAZOLE 40 MG/10 ML (PROTONIX) VIAL IV SCH (08:06)
[2017-11-13] MEDS: IRON POLYSAC 150 MG CAP (NIFEREX) PO SCH ×2 (08:06→16:57)
[2017-11-13] MEDS: ASPIRIN E.C. 81 MG (ECOTRIN) TAB PO SCH (08:06)
--- NOTE | 2017-11-13 09:12 | Progress Note-Hospitalist ---
Subjective HPI/CC On Admission Date Seen by Provider: Nov 13, 2017 Time Seen by Provider: 09:00 Subjective/Events-last exam Patient has being copious amounts of watery diarrhea so we'll attempt to start Lactinex and Questran Mentation slightly improved but overall extremely debilitated status Appreciate general surgery evaluation Maintain DO NOT RESUSCITATE Check meds and labs Review of Systems Gastrointestinal: Diarrhea Neurological: Confusion Objective Exam Vital Signs Vital Signs Date Time Temp Pulse Resp B/P (MAP) Pulse Ox O2 Delivery O2 Flow Rate FiO2 11/13/17 18:30 95 Nasal Cannula 2.00 11/13/17 16:35 97.8 90 20 119/70 (86) 11/11/17 12:50 32 Capillary Refill : Less Than 3 Seconds General Appearance: No Apparent Distress, WD/WN, Chronically ill, Cachetic Respiratory: Lungs Clear, Normal Breath Sounds Neurologic/Psychiatric: Alert, Disoriented Results/Procedures Lab Laboratory Tests 11/13/17 05:43 Patient resulted labs reviewed. Assessment/Plan Assessment and Plan Assess & Plan/Chief Complaint Assessment: End-stage life status Previous colon resection Confusion Poor social situation Loose stools Plan: Palliative care consult Recommend DO NOT RESUSCITATE Patient obviously a hospice candidate we'll try to arrange We'll order Lactinex and Questran Diagnosis/Problems Diagnosis/Problems (1) HCAP (healthcare-associated pneumonia) Status: Acute (2) Altered mental status Status: Acute Qualifiers: Altered mental status type: delirium Qualified Codes: R41.0 - Disorientation, unspecified (3) Hypoxia Status: Acute (4) Chronic combined systolic and diastolic CHF (congestive heart failure) Status: Chronic Permanent Comment: Cardiac Cath 2014 with nonischemic cardiomyopathy and EF 40% Echocardiogram 01/2017 with aortic root mildly dilated, grade 1 diastolic dysfunction, EF 55-65% and hypokinesis inferior myocardium Stress test 01/2017 negative for ischemia, had predominantly fixed apical defect with mild reversability and low normal LV function Echo 11/03/17 - EF 40-45%; Pulmonary hypertension w/ pulm pressure 60-65mmHg Last Edited By: Nicole Currie on Nov 04, 2017 09:36 (5) Poor prognosis Status: Chronic (6) End of life care Status: Acute (7) Cachexia Status: Chronic (8) Anemia Status: Acute Qualifiers: Anemia type: iron deficiency Iron deficiency anemia type: chronic blood loss Qualified 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
[2017-11-13] MEDS: CHOLESTYRAMINE 4 GM (QUESTRAN LITE, PREVALITE) PKT PO SCH ×3 (09:37→20:11)
[2017-11-13] MEDS: VANCOMYCIN INJECTION 1,000 MG in NS (IVPB) 250 ML IV SCH (10:55)
[2017-11-13] MEDS: LACTOBACILLUS Acidoph/Bulgar (LACTINEX/FLORANEX) TAB PO SCH ×2 (10:55→16:57)
[2017-11-13 11:53] VITALS: BP 111/67
--- NOTE | 2017-11-13 12:18 | Physical Therapy Daily Note ---
PT Daily Note-Current Subjective Pt L side lying in bed upon arrival. Pt will not open eyes but gives occasional nod & gives permission for Supine Ex. Pain Location: No Pain Reported Mental Status Patient Orientation: Unresponsive Attachments: Cheng Catheter, IV Transfers Functional [place] Measure 0=Not Assessed/NA 4=Minimal Assistance 1=Total Assistance 5=Supervision or Setup 2=Maximal Assistance 6=Modified [place] 3=Moderate Assistance 7=Complete IndependenceIRFPAI Quality Coding Scale 6 Independent with activity with or without an assistive device 5 Patient requires set up or clean up by helper. Patient completes activity by themselves 4 Supervision or touching assist (CGA). [place] provide cues , steadying assist 3 The helper provides less than half the effort to complete the activity 2 The helper provides more than half the effort to complete the activity 1 Dependent. The helper does all the effort to complete an activity 7 Patient refused to complete or attempt activity 9 The patient did not perform the activity before the current illness or injury 88 Not attempted due to Medical conditions or safety concerns Exercises Supine Ex: Ankle pumps, Heel Slides Supine Reps: 10 Treatments Pt is difficult to awaken. Pt never opens eyes during tx. Pt will not vocalize response only occasional nod to questions asked. MILL ORDER SCHEDULER completes PROM Supine Ex before talking to Nurse & Palliative Care. Nurse advises pt has been like this all morning and no meds to affect drowsiness given. Palliative Care Nurse advises family had been visited with and pt had change to DNR but no update yet on if Comfort Care would be decided on at this time. Pt resting in bed with all needs met at end of tx, including call light next to pt. Assessment Current Status: Fair Progress Pt continues to decline and is unresponsive during tx. PT Electroplating Worker Goals Longterm Goals PT Electroplating Worker Goals Time Frame: Nov 19, 2017 Transfers (B,C,W/C) (FIM): 4 Gait (FIM): 2 Gait distance (FIM): 1=up to 49 ft Gait Assistive Device: FWW PT Plan Problem List Problem List: Activity Tolerance, Functional Strength, Safety, Balance, Gait, Transfer, Bed Mobility, ROM Treatment/Plan Treatment Plan: Continue Plan of Care Treatment Plan: Bed Mobility, Education, Functional Activity Perri, Functional Strength, Gait, Safety, Therapeutic Exercise, Transfers Treatment Duration: Nov 19, 2017 Frequency: 5 times per week Estimated Hrs Per Day: .25 hour per day Patient and/or Family Agrees t: Yes Safety Risks/Education Patient Education: Correct Positioning, Safety Issues Teaching Recipient: Patient Teaching Methods: Discussion Response to Teaching: Unable to Comprehend Time/GCodes Time In: 1110 Time Out: 1130 Total Billed Treatment Time: 20 Total Billed Treatment 1, FA (20m) G Codes Necessary: JENNIFER Ellis MILL ORDER SCHEDULER Nov 13, 2017 12:18
--- NOTE | 2017-11-13 13:05 | Progress Note (SOAP) ---
Subjective Date Seen by Provider: Nov 13, 2017 Time Seen by Provider: 13:00 Subjective/Events-last exam doing ok. no episodes confusion overnight. copious diarrhea. tolerating diet. mentation slightly improved. Objective Exam Vital Signs Date Time Temp Pulse Resp B/P (MAP) Pulse Ox O2 Delivery O2 Flow Rate FiO2 11/13/17 11:53 96.0 88 16 111/67 (82) 96 Nasal Cannula 2.50 11/13/17 10:51 96 Nasal Cannula 2.00 11/13/17 08:40 98 Nasal Cannula 2.50 11/13/17 08:00 96.8 91 16 116/69 (85) 98 Nasal Cannula 2.50 11/13/17 07:12 95 Nasal Cannula 2.00 11/13/17 07:00 93 11/13/17 04:02 98.2 92 17 115/73 (87) 96 Nasal Cannula 2.50 11/13/17 02:15 97 Nasal Cannula 2.00 11/13/17 01:00 86 11/13/17 00:06 97.9 89 17 112/70 (84) 93 Nasal Cannula 2.50 11/12/17 21:35 96 Nasal Cannula 2.00 11/12/17 21:00 99 Nasal Cannula 2.00 11/12/17 20:14 Nasal Cannula 2.00 11/12/17 20:00 97.6 92 16 97/57 (70) 99 Nasal Cannula 2.50 11/12/17 19:00 88 11/12/17 18:25 98 Nasal Cannula 3.00 11/12/17 16:29 97.6 73 16 105/64 (78) 100 Nasal Cannula 3.00 11/12/17 14:44 97 Nasal Cannula 3.00 I & O 11/13/17 07:00 Intake Total 1580 ml Output Total 3290 ml Balance -1710 ml Capillary Refill : Less Than 3 Seconds General Appearance: No Apparent Distress HEENT: PERRL/EOMI Neck: Full Range of Motion Respiratory: Chest Non Tender, Normal Breath Sounds Cardiovascular: Regular Rate, Rhythm Gastrointestinal: normal bowel sounds, non tender, soft, other (incision clean/ dry) Extremity: Normal Capillary Refill Neurologic/Psychiatric: Alert, Oriented x3 Skin: Normal Color Lymphatic: No Adenopathy Results Lab Laboratory Tests 11/13/17 05:43: White Blood Count 8.6, Red Blood Count 2.40L, Hemoglobin 7.6L, Hematocrit 24L, Mean Corpuscular Volume 98, Mean Corpuscular Hemoglobin 32, Mean Corpuscular Hemoglobin Concent 32, Red Cell Distribution Width 26.3H, Platelet Count 200, Mean Platelet Volume 13.2H, Neutrophils (%) (Auto) 75, Lymphocytes (%) (Auto) 9L , Monocytes (%) (Auto) 15H, Eosinophils (%) (Auto) 1, Basophils (%) (Auto) 0, Neutrophils # (Auto) 6.5, Lymphocytes # (Auto) 0.8L, Monocytes # (Auto) 1.3H, Eosinophils # (Auto) 0.1, Basophils # (Auto) 0.0, Sodium Level 145, Potassium Level 4.6, Chloride Level 114H, Carbon Dioxide Level 22, Anion Gap 9, Blood Urea Nitrogen 34H, Creatinine 0.67, Estimat Glomerular Filtration Rate > 60, BUN /Creatinine Ratio 51, Glucose Level 85, Calcium Level 7.9L, Phosphorus Level 3.6 , Magnesium Level 2.0 11/13/17 11:50: Lab Scanned Report Transfusion Reaction Form Assessment/Plan Assessment/Plan Assess & Plan/Chief Complaint s/p sigmoid colon resection and en-bloc SB resection. malnutrition. hypoproteinemia causing interstitial edema and ascites, improving slowly. continue PT and nutritional supplementation.a ambulate and chair as much as possible. Clinical Quality Measures DVT/VTE Risk/Contraindication: Risk Factor Score Per Nursin RFS Level Per Nursing on Admit: 4+=Very High MIKE OTOOLE MD Nov 13, 2017 1:05 pm
[2017-11-13 16:35] VITALS: BP 119/70
[2017-11-13] MEDS: [UNRECOGNIZED DRUG - OTHER] IV SCH ×9 (16:51)
[2017-11-13] MEDS: POTASSIUM ACETATE IV SCH ×9 (16:51)
[2017-11-13] MEDS: POTASSIUM PHOSPHATE IV SCH ×9 (16:51)
[2017-11-13 19:35] VITALS: BP 106/65
[2017-11-13] MEDS: ENOXAPARIN 40 MG/0.4 ML (LOVENOX) SYR SC SCH (21:01)
[2017-11-13] MEDS: QUEtiapine 25 MG (SEROquel) TAB IMMEDIATE RELEASE PO SCH (21:01)
[2017-11-14] VITALS (8 sets, daily range): BP systolic 106–118; BP diastolic 59–71
[2017-11-14] MEDS: HALOPERIDOL 5 MG/ML (HALDOL) AMP IV PRN (01:05)
[2017-11-14] MEDS: PIPERACILLIN/TAZOBACTAM 3.375 GM in D5W 100 ML IVPB 100 ML IV SCH ×3 (01:05→16:50)
[2017-11-14] MEDS: RT-ALBUTEROL/IPRATROPIUM 3 ML (DUONEB) VIAL INH SCH ×3 (02:08→19:15)
[2017-11-14] MEDS: IRON POLYSAC 150 MG CAP (NIFEREX) PO SCH ×2 (06:00→16:50)
[2017-11-14] MEDS: LACTOBACILLUS Acidoph/Bulgar (LACTINEX/FLORANEX) TAB PO SCH ×3 (06:00→16:50)
[2017-11-14 06:19] LABS: BASOPHILS % (AUTO) 0 % (0-10); EOSINOPHILS # (AUTO) 0.1 10^3/uL (0.0-0.3); EOSINOPHILS % (AUTO) 1 % (0-10); HEMATOCRIT 24 % (40-54); HEMOGLOBIN 7.3 G/DL (13.3-17.7); LYMPHOCYTES # (AUTO) 0.8 X 10^3 (1.0-4.0); LYMPHOCYTES % (AUTO) 10 % (12-44); MEAN CORPUSCULAR HEMOGLOBIN 31 PG (25-34); MEAN CORPUSCULAR HGB CONC 30 G/DL (32-36); MEAN CORPUSCULAR VOLUME 101 FL (80-99); MEAN PLATELET VOLUME 12.5 FL (7.4-10.4); MONOCYTES # (AUTO) 1.3 X 10^3 (0.0-1.0); MONOCYTES % (AUTO) 17 % (0-12); NEUTROPHILS # (AUTO) 5.5 X 10^3 (1.8-7.8); NEUTROPHILS % (AUTO) 72 % (42-75); PLATELET COUNT 232 10^3/uL (130-400); RED BLOOD COUNT 2.38 10^6/uL (4.35-5.85); RED CELL DISTRIBUTION WIDTH 26.8 % (10.0-14.5); WHITE BLOOD COUNT 7.7 10^3/uL (4.3-11.0)
[2017-11-14 06:51] LABS: BUN/CREATININE RATIO 44; CARBON DIOXIDE 23 MMOL/L (21-32); CHLORIDE 114 MMOL/L (98-107); CREATININE SERUM 0.68 MG/DL (0.60-1.30); GFR ESTIMATED > 60; GLUCOSE 81 MG/DL (70-105); PHOSPHORUS 3.6 MG/DL (2.3-4.7); POTASSIUM 4.4 MMOL/L (3.6-5.0); SODIUM 144 MMOL/L (135-145)
[2017-11-14] MEDS: CHOLESTYRAMINE 4 GM (QUESTRAN LITE, PREVALITE) PKT PO SCH ×3 (08:42→19:50)
[2017-11-14] MEDS: PANTOPRAZOLE 40 MG/10 ML (PROTONIX) VIAL IV SCH (08:42)
[2017-11-14] MEDS: ASPIRIN E.C. 81 MG (ECOTRIN) TAB PO SCH (08:42)
--- NOTE | 2017-11-14 10:18 | Progress Note-Hospitalist ---
Subjective HPI/CC On Admission Date Seen by Provider: Nov 14, 2017 Time Seen by Provider: 09:30 Subjective/Events-last exam Patient did eat a good breakfast today and was alert Patient overall appears more more declined every day and appears to be in an early phase of the process Palliative care consultation maintained Diarrhea is much better on Questran and Lactinex Patient appears to be end-stage and the likelihood of recovery is extremely low Review of Systems General: Fatigue Gastrointestinal: Diarrhea Objective Exam Vital Signs Vital Signs Date Time Temp Pulse Resp B/P (MAP) Pulse Ox O2 Delivery O2 Flow Rate FiO2 11/14/17 09:00 98 Nasal Cannula 2.50 11/14/17 07:00 102 11/14/17 06:40 28 11/14/17 06:01 98.0 20 107/66 (80) Capillary Refill : Less Than 3 Seconds General Appearance: No Apparent Distress, WD/WN, Chronically ill, Cachetic Respiratory: Lungs Clear, Normal Breath Sounds Cardiovascular: Regular Rate, Rhythm, No Edema Neurologic/Psychiatric: Disoriented Results/Procedures Lab Laboratory Tests 11/14/17 05:15 11/14/17 06:02 Patient resulted labs reviewed. Assessment/Plan Assessment and Plan Assess & Plan/Chief Complaint Assessment: End-stage life status Previous colon resection Confusion Poor social situation Loose stools Plan: Palliative care consult Recommend DO NOT RESUSCITATE Patient obviously a hospice candidate we'll try to arrange We'll order Lactinex and Questran Diagnosis/Problems Diagnosis/Problems (1) HCAP (healthcare-associated pneumonia) Status: Acute (2) Altered mental status Status: Acute Qualifiers: Altered mental status type: delirium Qualified Codes: R41.0 - Disorientation, unspecified (3) Hypoxia Status: Acute (4) Chronic combined systolic and diastolic CHF (congestive heart failure) Status: Chronic Permanent Comment: Cardiac Cath 2014 with nonischemic cardiomyopathy and EF 40% Echocardiogram 01/2017 with aortic root mildly dilated, grade 1 diastolic dysfunction, EF 55-65% and hypokinesis inferior myocardium Stress test 01/2017 negative for ischemia, had predominantly fixed apical defect with mild reversability and low normal LV function Echo 11/03/17 - EF 40-45%; Pulmonary hypertension w/ pulm pressure 60-65mmHg Last Edited By: Nicole Currie on Nov 04, 2017 09:36 (5) Poor prognosis Status: Chronic (6) End of life care Status: Acute (7) Cachexia Status: Chronic (8) Anemia Status: Acute Qualifiers: Anemia type: iron deficiency Iron deficiency anemia type: chronic blood loss Qualified Codes: D50.0 - Iron deficiency anemia secondary to blood loss ( chronic) (9) Transfusion of blood during current hospitalisation Status: Acute (10) Hypoproteinemia Status: Acute (11) Diarrhea Status: Acute Qualifiers: Diarrhea type: unspecified type Qualified Codes: R19.7 - Diarrhea, unspecified Clinical Quality Measures DVT/VTE Risk/Contraindication: Risk Factor Score Per Nursin RFS Level Per Nursing on Admit: 4+=Very High MARIA DEL ROSARIO MO DO Nov 14, 2017 10:18
[2017-11-14] MEDS: VANCOMYCIN INJECTION 1,000 MG in NS (IVPB) 250 ML IV SCH (13:00)
--- NOTE | 2017-11-14 13:52 | Physical Therapy Daily Note ---
PT Daily Note-Current Subjective Pt laying Supine in bed with Aide present trying to clean pt up after BM in bed. Pt agrees to PT assist for tx. Pain Location: No Pain Reported Mental Status Patient Orientation: Person, Mumbles Attachments: Cheng Catheter Transfers Functional [place] Measure 0=Not Assessed/NA 4=Minimal Assistance 1=Total Assistance 5=Supervision or Setup 2=Maximal Assistance 6=Modified [place] 3=Moderate Assistance 7=Complete IndependenceIRFPAI Quality Coding Scale 6 Independent with activity with or without an assistive device 5 Patient requires set up or clean up by helper. Patient completes activity by themselves 4 Supervision or touching assist (CGA). [place] provide cues , steadying assist 3 The helper provides less than half the effort to complete the activity 2 The helper provides more than half the effort to complete the activity 1 Dependent. The helper does all the effort to complete an activity 7 Patient refused to complete or attempt activity 9 The patient did not perform the activity before the current illness or injury 88 Not attempted due to Medical conditions or safety concerns Scootin Rollin Exercises Supine Ex: Rolling Treatments Pt rolls side to side during pericare for BM and replacement of bed pads. Pt rolls multiple times. Pt resting due to reporting fatigue after pericare complete. Pt has all needs met & Aide present after pericare & transfer training. Assessment Current Status: Fair Progress Pt is not able to complete task alone. Pt tries to initiate movement but needs staff assistance to complete. Pt continues to remain weak and fatigue easily. PT Hourly Shift Manager Goals Hourly Shift Manager Goals PT Hourly Shift Manager Goals Time Frame: Nov 19, 2017 Transfers (B,C,W/C) (FIM): 4 Gait (FIM): 2 Gait distance (FIM): 1=up to 49 ft Gait Assistive Device: FWW PT Plan Problem List Problem List: Activity Tolerance, Functional Strength, Safety, Balance, Gait, Transfer, Bed Mobility, ROM Treatment/Plan Treatment Plan: Continue Plan of Care Treatment Plan: Bed Mobility, Education, Functional Activity Perri, Functional Strength, Gait, Safety, Therapeutic Exercise, Transfers Treatment Duration: Nov 19, 2017 Frequency: 5 times per week Estimated Hrs Per Day: .25 hour per day Patient and/or Family Agrees t: Yes Safety Risks/Education Patient Education: Transfer Techniques, Correct Positioning, Safety Issues Teaching Recipient: Patient Teaching Methods: Discussion Response to Teaching: Verbalize Understanding Time/GCodes Time In: 1310 Time Out: 1327 Total Billed Treatment Time: 17 Total Billed Treatment 1, FA (17m) G Codes Necessary: JENNIFER Ellis CHIEF CONTROLLER STATION Nov 14, 2017 13:51
--- NOTE | 2017-11-14 15:55 | Progress Note (SOAP) ---
Subjective Date Seen by Provider: Nov 14, 2017 Time Seen by Provider: 12:00 Subjective/Events-last exam doing ok. very tired and fatigued but less confused and combative. tolerating reg diet. still has diarrhea. Objective Exam Vital Signs Date Time Temp Pulse Resp B/P (MAP) Pulse Ox O2 Delivery O2 Flow Rate FiO2 11/14/17 13:00 86 11/14/17 12:00 98.0 76 20 114/68 (83) 96 Nasal Cannula 2.00 11/14/17 09:00 98 Nasal Cannula 2.50 11/14/17 08:00 97.3 92 18 118/71 (87) 98 Nasal Cannula 2.00 11/14/17 07:00 102 11/14/17 06:40 95 92 28 11/14/17 06:32 92 Nasal Cannula 2.00 11/14/17 06:01 98.0 108 20 107/66 (80) 91 Nasal Cannula 2.00 11/14/17 04:01 98.0 102 20 106/62 (77) 93 Nasal Cannula 2.00 11/14/17 02:10 97 Nasal Cannula 2.00 11/14/17 01:00 100 11/14/17 00:15 98.2 108 20 107/66 (80) 91 Nasal Cannula 2.00 11/13/17 21:51 97 Nasal Cannula 2.00 11/13/17 21:00 Nasal Cannula 2.50 11/13/17 19:35 98.4 100 17 106/65 (79) 98 Nasal Cannula 2.00 11/13/17 19:00 94 11/13/17 18:30 95 Nasal Cannula 2.00 11/13/17 16:35 97.8 90 20 119/70 (86) 96 Nasal Cannula 2.50 I & O 11/14/17 07:00 Intake Total 4100 ml Output Total 4510 ml Balance -410 ml Capillary Refill : Less Than 3 Seconds General Appearance: No Apparent Distress HEENT: PERRL/EOMI Neck: Full Range of Motion Respiratory: Chest Non Tender, Normal Breath Sounds Cardiovascular: Regular Rate, Rhythm Gastrointestinal: normal bowel sounds, non tender, soft, other (wound clean/dry ) Extremity: Normal Capillary Refill Neurologic/Psychiatric: Alert, Oriented x3 Skin: Normal Color Lymphatic: No Adenopathy Results Lab Laboratory Tests 11/14/17 05:15: Sodium Level 144, Potassium Level 4.4, Chloride Level 114H, Carbon Dioxide Level 23, Anion Gap 7, Blood Urea Nitrogen 30H, Creatinine 0.68, Estimat Glomerular Filtration Rate > 60, BUN/Creatinine Ratio 44, Glucose Level 81, Calcium Level 8.0L, Phosphorus Level 3.6, Magnesium Level 2.0 11/14/17 06:02: White Blood Count 7.7, Red Blood Count 2.38L, Hemoglobin 7.3L, Hematocrit 24L, Mean Corpuscular Volume 101H, Mean Corpuscular Hemoglobin 31, Mean Corpuscular Hemoglobin Concent 30L, Red Cell Distribution Width 26.8H, Platelet Count 232, Mean Platelet Volume 12.5H, Neutrophils (%) (Auto) 72, Lymphocytes (%) (Auto) 10L, Monocytes (%) (Auto) 17H, Eosinophils (%) (Auto) 1, Basophils (%) (Auto) 0 , Neutrophils # (Auto) 5.5, Lymphocytes # (Auto) 0.8L, Monocytes # (Auto) 1.3H, Eosinophils # (Auto) 0.1, Basophils # (Auto) 0.0 Microbiology 11/13/17 C. difficile GDH Antigen & Toxins - Final, Complete Assessment/Plan Assessment/Plan Assess & Plan/Chief Complaint s/p sigmoid colon resection and en-bloc SB resection. malnutrition. hypoproteinemia causing interstitial edema and ascites, improving slowly. continue PT and nutritional supplementation.a ambulate and chair as much as possible. will add PO flagyl BID to decrease bacterial load in hopes of decreasing diarrhea. Clinical Quality Measures DVT/VTE Risk/Contraindication: Risk Factor Score Per Nursin RFS Level Per Nursing on Admit: 4+=Very High MIKE OTOOLE MD Nov 14, 2017 3:55 pm
[2017-11-14] MEDS: [UNRECOGNIZED DRUG - OTHER] IV SCH ×9 (16:56)
[2017-11-14] MEDS: POTASSIUM PHOSPHATE IV SCH ×9 (16:56)
[2017-11-14] MEDS: POTASSIUM ACETATE IV SCH ×9 (16:56)
[2017-11-14] MEDS: QUEtiapine 25 MG (SEROquel) TAB IMMEDIATE RELEASE PO SCH (21:00)
[2017-11-14] MEDS: metroNIDAZOLE 500 MG (FLAGYL) TAB PO SCH (21:00)
[2017-11-14] MEDS: ENOXAPARIN 40 MG/0.4 ML (LOVENOX) SYR SC SCH (21:00)
[2017-11-15] VITALS (7 sets, daily range): BP systolic 99–118; BP diastolic 54–71
[2017-11-15] MEDS: PIPERACILLIN/TAZOBACTAM 3.375 GM in D5W 100 ML IVPB 100 ML IV SCH ×2 (00:07→09:21)
[2017-11-15] MEDS: LACTOBACILLUS Acidoph/Bulgar (LACTINEX/FLORANEX) TAB PO SCH ×3 (05:29→16:56)
[2017-11-15] MEDS: IRON POLYSAC 150 MG CAP (NIFEREX) PO SCH ×2 (05:29→16:56)
[2017-11-15 05:43] LABS: BASOPHILS % (AUTO) 0 % (0-10); EOSINOPHILS # (AUTO) 0.1 10^3/uL (0.0-0.3); EOSINOPHILS % (AUTO) 1 % (0-10); HEMATOCRIT 23 % (40-54); HEMOGLOBIN 7.3 G/DL (13.3-17.7); LYMPHOCYTES # (AUTO) 0.6 X 10^3 (1.0-4.0); LYMPHOCYTES % (AUTO) 7 % (12-44); MEAN CORPUSCULAR HEMOGLOBIN 32 PG (25-34); MEAN CORPUSCULAR HGB CONC 32 G/DL (32-36); MEAN CORPUSCULAR VOLUME 102 FL (80-99); MEAN PLATELET VOLUME 12.8 FL (7.4-10.4); MONOCYTES # (AUTO) 1.3 X 10^3 (0.0-1.0); MONOCYTES % (AUTO) 15 % (0-12); NEUTROPHILS # (AUTO) 6.9 X 10^3 (1.8-7.8); NEUTROPHILS % (AUTO) 77 % (42-75); PLATELET COUNT 265 10^3/uL (130-400); RED BLOOD COUNT 2.25 10^6/uL (4.35-5.85); RED CELL DISTRIBUTION WIDTH 26.6 % (10.0-14.5); WHITE BLOOD COUNT 8.9 10^3/uL (4.3-11.0)
[2017-11-15 06:10] LABS: BUN/CREATININE RATIO 41; CARBON DIOXIDE 20 MMOL/L (21-32); CHLORIDE 114 MMOL/L (98-107); CREATININE SERUM 0.71 MG/DL (0.60-1.30); GFR ESTIMATED > 60; GLUCOSE 84 MG/DL (70-105); MAGNESIUM 1.9 MG/DL (1.8-2.4); PHOSPHORUS 3.1 MG/DL (2.3-4.7); POTASSIUM 4.1 MMOL/L (3.6-5.0); SODIUM 141 MMOL/L (135-145)
[2017-11-15] MEDS: RT-ALBUTEROL/IPRATROPIUM 3 ML (DUONEB) VIAL INH SCH ×2 (08:20→22:27)
[2017-11-15] MEDS: CHOLESTYRAMINE 4 GM (QUESTRAN LITE, PREVALITE) PKT PO SCH ×3 (09:21→20:34)
[2017-11-15] MEDS: metroNIDAZOLE 500 MG (FLAGYL) TAB PO SCH ×2 (09:21→20:35)
[2017-11-15] MEDS: PANTOPRAZOLE 40 MG/10 ML (PROTONIX) VIAL IV SCH (09:21)
[2017-11-15] MEDS: ASPIRIN E.C. 81 MG (ECOTRIN) TAB PO SCH (09:22)
--- NOTE | 2017-11-15 10:03 | Progress Note-Hospitalist ---
Subjective HPI/CC On Admission Date Seen by Provider: Nov 15, 2017 Time Seen by Provider: 09:00 Subjective/Events-last exam Patient is doing a little better and able to eat so will discontinue TPN Has completed broad-spectrum antibiotics of Zosyn so we'll discontinue that Patient feels much better but it appears that he is still in the end stages of his life but will attempt to do skilled care at [facility] tomorrow maintain DO NOT RESUSCITATE status a [facility] provider was updated on the plan Hospice will be beneficial for the patient in the near future Diarrhea is much improved Review of Systems General: Fatigue, Malaise Gastrointestinal: Diarrhea Objective Exam Vital Signs Vital Signs Date Time Temp Pulse Resp B/P (MAP) Pulse Ox O2 Delivery O2 Flow Rate FiO2 11/15/17 08:20 94 Nasal Cannula 2.00 11/15/17 08:00 98.2 99 22 118/64 (82) 11/14/17 06:40 28 Capillary Refill : Less Than 3 Seconds General Appearance: No Apparent Distress, WD/WN, Chronically ill, Cachetic Respiratory: Lungs Clear, Normal Breath Sounds Cardiovascular: Regular Rate, Rhythm, No Edema Neurologic/Psychiatric: Alert, No Motor/Sensory Deficits, link 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 Assessment/Plan Assessment and Plan Assess & Plan/Chief Complaint Assessment: End-stage life status Previous colon resection Confusion Poor social situation Loose stools Plan: Palliative care consult Recommend DO NOT RESUSCITATE Patient obviously a hospice candidate we'll try to arrange but improved enough to entertain skilled treatment and [facility] tomorrow but likely will transition to hospice in the near future We'll maintain Lactinex and Questran Diagnosis/Problems Diagnosis/Problems (1) HCAP (healthcare-associated pneumonia) Status: Resolved (2) Altered mental status Status: Resolved Qualifiers: Altered mental status type: delirium Qualified Codes: R41.0 - Disorientation, unspecified (3) Hypoxia Status: Resolved (4) Chronic combined systolic and diastolic CHF (congestive heart failure) Status: Chronic Permanent Comment: Cardiac Cath 2014 with nonischemic cardiomyopathy and EF 40% Echocardiogram 01/2017 with aortic root mildly dilated, grade 1 diastolic dysfunction, EF 55-65% and hypokinesis inferior myocardium Stress test 01/2017 negative for ischemia, had predominantly fixed apical defect with mild reversability and low normal LV function Echo 11/03/17 - EF 40-45%; Pulmonary hypertension w/ pulm pressure 60-65mmHg Last Edited By: Nicole Currie on Nov 04, 2017 09:36 (5) Poor prognosis Status: Chronic (6) End of life care Status: Acute (7) Cachexia Status: Chronic (8) Anemia Status: Acute Qualifiers: Anemia type: iron deficiency Iron deficiency anemia type: chronic blood loss Qualified Codes: D50.0 - Iron deficiency anemia secondary to blood loss ( chronic) (9) Transfusion of blood during current hospitalisation Status: Acute (10) Hypoproteinemia Status: Acute (11) Diarrhea Status: Acute Qualifiers: Diarrhea type: unspecified type Qualified Codes: R19.7 - Diarrhea, unspecified Clinical Quality Measures DVT/VTE Risk/Contraindication: Risk Factor Score Per Nursin RFS Level Per Nursing on Admit: 4+=Very High MARIA DEL ROSARIO MO DO Nov 15, 2017 10:02
--- NOTE | 2017-11-15 10:04 | Physical Therapy Daily Note ---
PT Daily Note-Current Subjective Pt laying Supine in bed upon arrival. Pt is awake, more alert this morning. Pt is still confused though & grabs for things in the air that aren't there. Pain Location: No Pain Reported Mental Status Patient Orientation: Person Transfers Functional [place] Measure 0=Not Assessed/NA 4=Minimal Assistance 1=Total Assistance 5=Supervision or Setup 2=Maximal Assistance 6=Modified [place] 3=Moderate Assistance 7=Complete IndependenceIRFPAI Quality Coding Scale 6 Independent with activity with or without an assistive device 5 Patient requires set up or clean up by helper. Patient completes activity by themselves 4 Supervision or touching assist (CGA). [place] provide cues , steadying assist 3 The helper provides less than half the effort to complete the activity 2 The helper provides more than half the effort to complete the activity 1 Dependent. The helper does all the effort to complete an activity 7 Patient refused to complete or attempt activity 9 The patient did not perform the activity before the current illness or injury 88 Not attempted due to Medical conditions or safety concerns Exercises Supine Ex: Ankle pumps, Quad Set, Heel Slides, Hip abd/add Supine Reps: 15 Treatments Pt very drowsy upon arrival. Pt completes Supine Ex in bed with several rest breaks. Pt resting in bed at end of tx with all needs met, including call light next to pt. Assessment Current Status: Fair Progress Pt is very drowsy and is confused at times, reaching for things in the air that are not there. PT Wastewater Treatment Engineer Goals Intermediate Goals PT Intermediate Goals Time Frame: Nov 19, 2017 Transfers (B,C,W/C) (FIM): 4 Gait (FIM): 2 Gait distance (FIM): 1=up to 49 ft Gait Assistive Device: FWW PT Plan Problem List Problem List: Activity Tolerance, Functional Strength, Safety, Balance, Gait, Transfer, Bed Mobility Treatment/Plan Treatment Plan: Continue Plan of Care Treatment Plan: Bed Mobility, Education, Functional Activity Perri, Functional Strength, Gait, Safety, Therapeutic Exercise, Transfers Treatment Duration: Nov 19, 2017 Frequency: 5 times per week Estimated Hrs Per Day: .25 hour per day Patient and/or Family Agrees t: Yes Safety Risks/Education Patient Education: Correct Positioning, Safety Issues Teaching Recipient: Patient Teaching Methods: Discussion Response to Teaching: Reinforcement Needed Time/GCodes Time In: 825 Time Out: 840 Total Billed Treatment Time: 15 Total Billed Treatment 1, EX (15m) G Codes Necessary: JENNIFER Ellis DIGITAL RETOUCHER Nov 15, 2017 10:04
[2017-11-15] MEDS ORDERED: CYANOCOBALAMIN INJ 1000 MCG/ML IM ONE (11:15)
--- NOTE | 2017-11-15 12:00 | Physician Progress Note ---
Progress Note Assessment/Plan Time Seen by Provider: 11:30 Events since last exam Pt is up to chair and eating. He is cachetic. Surgical wound in the abdomen, no sign of infection. Pt is DNR. Possible [facility] to [facility] tomorrow. Assessment/Plan A/P 1. Severe hypokalemia, resolved. 2. Anemia, multi-factorials, GI bleeding, bug infection, Hydrea. Slowly improving. Continue to hold off Hydrea. Will give one dose B12 injection today. 3. h/o partial gastrectomy, pernicious anemia. Need to be on B12 monthly. 4. bedbug infection, cleaned. 5. colonic strictures, s/p multiple biopsies no malignancy. F/u with Dr Contreras. 6. Malnutrition, low albumin. Pt is eating better today. 7. Thrombocythemia in the past Plt over 1 million in the past. He became thrombocytopenia, most likely due to the infection, acute renal failure and history of Hydrea treatment. Hydrea is on hold now. Plt is in the normal range. Will watch for now. Off Hydrea. 8. Bilateral pneumonia. recovering 9. Bilateral large pleural effusion per recent CT scan 10. Possible discharge to senior care tomorrow. 11. See me at cancer center in a month for f/u. Vitals Last set of Vitals Signs Vital Signs Date Time Temp Pulse Resp B/P (MAP) Pulse Ox O2 Delivery O2 Flow Rate FiO2 11/15/17 08:20 94 Nasal Cannula 2.00 11/15/17 08:00 98.2 99 22 118/64 (82) 11/14/17 06:40 28 I&O I&O Intake and Output 11/15/17 00:00 Intake Total 1660 ml Output Total 4290 ml Balance -2630 ml Intake Oral 1560 ml IV Total 100 ml Output Urine Total 3450 ml Drainage Total 840 ml # Bowel Movements 1 Labs Laboratory Tests 11/15/17 05:33: White Blood Count 8.9, Red Blood Count 2.25L, Hemoglobin 7.3L, Hematocrit 23L, Mean Corpuscular Volume 102H, Mean Corpuscular Hemoglobin 32, Mean Corpuscular Hemoglobin Concent 32, Red Cell Distribution Width 26.6H, Platelet Count 265, Mean Platelet Volume 12.8H, Neutrophils (%) (Auto) 77H, Lymphocytes (%) (Auto) 7L, Monocytes (%) (Auto) 15H, Eosinophils (%) (Auto) 1, Basophils (%) (Auto) 0, Neutrophils # (Auto) 6.9, Lymphocytes # (Auto) 0.6L, Monocytes # (Auto) 1.3H, Eosinophils # (Auto) 0.1, Basophils # (Auto) 0.0, Sodium Level 141, Potassium Level 4.1, Chloride Level 114H, Carbon Dioxide Level 20L, Anion Gap 7, Blood Urea Nitrogen 29H, Creatinine 0.71, Estimat Glomerular Filtration Rate > 60, BUN /Creatinine Ratio 41, Glucose Level 84, Calcium Level 8.0L, Phosphorus Level 3.1 , Magnesium Level 1.9 Microbiology 11/13/17 C. difficile [facility] Antigen & Toxins - Final, Complete Clinical Quality Measures DVT/VTE Risk/Contraindication: Risk Factor Score Per Nursin RFS Level Per Nursing on Admit: 4+=Very High ANNE TALLEY MD Nov 15, 2017 12:00
--- NOTE | 2017-11-15 16:35 | Progress Note (SOAP) ---
Subjective Date Seen by Provider: Nov 15, 2017 Time Seen by Provider: 12:00 Subjective/Events-last exam doing better. more awake and alert. still tolerating PO well. still also having diarrhea but less frequent episodes. still ambulating poor and weak. Objective Exam Vital Signs Date Time Temp Pulse Resp B/P (MAP) Pulse Ox O2 Delivery O2 Flow Rate FiO2 11/15/17 13:08 103 11/15/17 12:00 97.9 97 20 99/54 (69) 95 Nasal Cannula 2.50 11/15/17 08:20 94 Nasal Cannula 2.00 11/15/17 08:00 98.2 99 22 118/64 (82) 93 Nasal Cannula 2.50 11/15/17 08:00 Nasal Cannula 2.50 11/15/17 07:15 81 11/15/17 04:00 98.4 105 18 110/70 (83) 92 Nasal Cannula 2.50 11/15/17 01:00 104 11/15/17 00:00 98.2 104 18 110/71 (84) 92 Nasal Cannula 2.50 11/14/17 21:00 Nasal Cannula 2.50 11/14/17 19:40 98.5 105 20 109/59 (76) 98 Nasal Cannula 2.00 11/14/17 19:15 96 Nasal Cannula 2.00 11/14/17 19:00 90 I & O 11/15/17 07:00 Intake Total 1810 ml Output Total 2740 ml Balance -930 ml Capillary Refill : Less Than 3 Seconds General Appearance: No Apparent Distress HEENT: PERRL/EOMI Neck: Full Range of Motion Respiratory: Lungs Clear, Normal Breath Sounds Cardiovascular: Regular Rate, Rhythm Gastrointestinal: normal bowel sounds, non tender, soft Extremity: Normal Capillary Refill Neurologic/Psychiatric: Alert, Oriented x3 Skin: Normal Color Lymphatic: No Adenopathy Results Lab Laboratory Tests 11/15/17 05:33: White Blood Count 8.9, Red Blood Count 2.25L, Hemoglobin 7.3L, Hematocrit 23L, Mean Corpuscular Volume 102H, Mean Corpuscular Hemoglobin 32, Mean Corpuscular Hemoglobin Concent 32, Red Cell Distribution Width 26.6H, Platelet Count 265, Mean Platelet Volume 12.8H, Neutrophils (%) (Auto) 77H, Lymphocytes (%) (Auto) 7L, Monocytes (%) (Auto) 15H, Eosinophils (%) (Auto) 1, Basophils (%) (Auto) 0, Neutrophils # (Auto) 6.9, Lymphocytes # (Auto) 0.6L, Monocytes # (Auto) 1.3H, Eosinophils # (Auto) 0.1, Basophils # (Auto) 0.0, Sodium Level 141, Potassium Level 4.1, Chloride Level 114H, Carbon Dioxide Level 20L, Anion Gap 7, Blood Urea Nitrogen 29H, Creatinine 0.71, Estimat Glomerular Filtration Rate > 60, BUN /Creatinine Ratio 41, Glucose Level 84, Calcium Level 8.0L, Phosphorus Level 3.1 , Magnesium Level 1.9 Microbiology 11/13/17 C. difficile [facility] Antigen & Toxins - Final, Complete Assessment/Plan Assessment/Plan Assess & Plan/Chief Complaint s/p sigmoid colon resection and en-bloc SB resection. malnutrition. hypoproteinemia causing interstitial edema and ascites, improving slowly. continue PT and nutritional supplementation.a ambulate and chair as much as possible. will add PO flagyl BID to decrease bacterial load in hopes of decreasing diarrhea. will remove drain in am. ok for SNF when able. Clinical Quality Measures DVT/VTE Risk/Contraindication: Risk Factor Score Per Nursin RFS Level Per Nursing on Admit: 4+=Very High MIKE OTOOLE MD Nov 15, 2017 4:35 pm
[2017-11-15] MEDS: QUEtiapine 25 MG (SEROquel) TAB IMMEDIATE RELEASE PO SCH (20:34)
[2017-11-15] MEDS: ENOXAPARIN 40 MG/0.4 ML (LOVENOX) SYR SC SCH (20:35)
[2017-11-15] MEDS: HALOPERIDOL 5 MG/ML (HALDOL) AMP IV PRN (23:00)
[2017-11-15] MEDS: fentaNYL INJECTION 100 MCG/2 ML AMP IVP PRN (23:49)
[2017-11-16 04:04] VITALS: BP 102/58
[2017-11-16 05:29] LABS: BASOPHILS % (AUTO) 1 % (0-10); EOSINOPHILS # (AUTO) 0.1 10^3/uL (0.0-0.3); EOSINOPHILS % (AUTO) 1 % (0-10); HEMATOCRIT 24 % (40-54); HEMOGLOBIN 7.2 G/DL (13.3-17.7); LYMPHOCYTES % (AUTO) 14 % (12-44); MEAN CORPUSCULAR HEMOGLOBIN 31 PG (25-34); MEAN CORPUSCULAR HGB CONC 30 G/DL (32-36); MEAN CORPUSCULAR VOLUME 102 FL (80-99); MEAN PLATELET VOLUME 12.6 FL (7.4-10.4); MONOCYTES # (AUTO) 1.2 X 10^3 (0.0-1.0); MONOCYTES % (AUTO) 17 % (0-12); NEUTROPHILS % (AUTO) 68 % (42-75); PLATELET COUNT 330 10^3/uL (130-400); RED BLOOD COUNT 2.33 10^6/uL (4.35-5.85); RED CELL DISTRIBUTION WIDTH 26.8 % (10.0-14.5); WHITE BLOOD COUNT 7.4 10^3/uL (4.3-11.0)
[2017-11-16 05:45] LABS: BUN/CREATININE RATIO 45; CALCIUM 7.9 MG/DL (8.5-10.1); CARBON DIOXIDE 20 MMOL/L (21-32); CHLORIDE 119 MMOL/L (98-107); CREATININE SERUM 0.65 MG/DL (0.60-1.30); GFR ESTIMATED > 60; GLUCOSE 63 MG/DL (70-105); MAGNESIUM 1.6 MG/DL (1.8-2.4); PHOSPHORUS 3.4 MG/DL (2.3-4.7); POTASSIUM 3.8 MMOL/L (3.6-5.0); SODIUM 145 MMOL/L (135-145)
[2017-11-16] MEDS: RT-ALBUTEROL/IPRATROPIUM 3 ML (DUONEB) VIAL INH SCH (06:36)
[2017-11-16] MEDS: LACTOBACILLUS Acidoph/Bulgar (LACTINEX/FLORANEX) TAB PO SCH ×2 (06:45→10:58)
[2017-11-16] MEDS: IRON POLYSAC 150 MG CAP (NIFEREX) PO SCH (06:57)
[2017-11-16 08:00] VITALS: BP 114/63
[2017-11-16] MEDS: metroNIDAZOLE 500 MG (FLAGYL) TAB PO SCH (08:28)
[2017-11-16] MEDS: CHOLESTYRAMINE 4 GM (QUESTRAN LITE, PREVALITE) PKT PO SCH ×2 (08:29→12:56)
[2017-11-16] MEDS: PANTOPRAZOLE 40 MG/10 ML (PROTONIX) VIAL IV SCH (08:29)
[2017-11-16] MEDS: ASPIRIN E.C. 81 MG (ECOTRIN) TAB PO SCH (08:29)
--- NOTE | 2017-11-16 10:11 | Physical Therapy Daily Note ---
PT Daily Note-Current Subjective Agrees to PT. Answers all questions. Transfers Functional [place] Measure 0=Not Assessed/NA 4=Minimal Assistance 1=Total Assistance 5=Supervision or Setup 2=Maximal Assistance 6=Modified [place] 3=Moderate Assistance 7=Complete IndependenceIRFPAI Quality Coding Scale 6 Independent with activity with or without an assistive device 5 Patient requires set up or clean up by helper. Patient completes activity by themselves 4 Supervision or touching assist (CGA). [place] provide cues , steadying assist 3 The helper provides less than half the effort to complete the activity 2 The helper provides more than half the effort to complete the activity 1 Dependent. The helper does all the effort to complete an activity 7 Patient refused to complete or attempt activity 9 The patient did not perform the activity before the current illness or injury 88 Not attempted due to Medical conditions or safety concerns Transfers (B, C, W/C) (FIM): 3 sit to stand x 3 reps with mod assist each time. Pt able to scoot forward in the chair to prepare for the transfer. While standing at edge of chair pt performed static stance and marching in place, each time he stood up. He required min to mod assist for balance in standing. Exercises Supine Ex: Ankle pumps, Heel Slides, Short Arc Quads, Hip abd/add Supine Reps: 10 (AAROm and skilled cues to stay on task. ) Treatments Functional transfers and LE strength Assessment Current Status: Good Progress Improved participation and interaction. Improved ability to stand. Follows cues. PT Sas Sql Developer Goals Alf Goals PT Sas Sql Developer Goals Time Frame: Nov 19, 2017 Transfers (B,C,W/C) (FIM): 4 Gait (FIM): 2 Gait distance (FIM): 1=up to 49 ft Gait Assistive Device: FWW PT Plan Problem List Problem List: Activity Tolerance, Functional Strength, Safety, Balance, Gait, Transfer, Bed Mobility Treatment/Plan Treatment Plan: Continue Plan of Care Treatment Plan: Bed Mobility, Education, Functional Activity Perri, Functional Strength, Gait, Safety, Therapeutic Exercise, Transfers Treatment Duration: Nov 19, 2017 Frequency: 5 times per week Estimated Hrs Per Day: .25 hour per day Patient and/or Family Agrees t: Yes Safety Risks/Education Patient Education: Transfer Techniques, Safety Issues Teaching Recipient: Patient Teaching Methods: Discussion Response to Teaching: Reinforcement Needed Time/GCodes Time In: 940 Time Out: 1003 Total Billed Treatment Time: 23 Total Billed Treatment visit EX 8 FA 15 MISSY ALCALA PT Nov 16, 2017 10:11
--- NOTE | 2017-11-16 10:35 | Progress Note-Hospitalist ---
Subjective HPI/CC On Admission Date Seen by Provider: Nov 16, 2017 Time Seen by Provider: 10:00 Subjective/Events-last exam Patient about the same Drains still in place and still output is a moderate amount Dr. Contreras consultation is appreciated Eating and drinking well Loose stools are much improved Questran and Lactinex both on board No pain is reported Frail status noted Every time I going to see the patient I can't seem to catch his son to update him on the plan shelter bed at [facility] is pending at this current time Review of Systems General: Fatigue, Malaise Gastrointestinal: Diarrhea Objective Exam Vital Signs Vital Signs Date Time Temp Pulse Resp B/P (MAP) Pulse Ox O2 Delivery O2 Flow Rate FiO2 11/16/17 08:29 Nasal Cannula 2.00 11/16/17 08:00 96.6 88 18 114/63 (80) 94 11/14/17 06:40 28 Capillary Refill : Less Than 3 Seconds General Appearance: No Apparent Distress, Cachetic Respiratory: Chest Non Tender, Lungs Clear, Normal Breath Sounds, No Accessory Muscle Use, No Respiratory Distress Cardiovascular: Regular Rate, Rhythm, No Edema, No Gallop, No JVD, No Murmur, Normal Peripheral Pulses Neurologic/Psychiatric: Alert, Depressed Affect Skin: Normal Color, Warm/Dry Results/Procedures Lab Laboratory Tests 11/16/17 05:20 Patient resulted labs reviewed. Assessment/Plan Assessment and Plan Assess & Plan/Chief Complaint Assessment: End-stage life status Previous colon resection Confusion Poor social situation Loose stools Plan: Palliative care consult Recommend DO NOT RESUSCITATE Patient obviously a hospice candidate we'll try to arrange but improved enough to entertain skilled treatment and group home tomorrow but likely will transition to hospice in the near future We'll maintain Lactinex and Questran NHP when bed available Drain per Dr Contreras Diagnosis/Problems Diagnosis/Problems (1) HCAP (healthcare-associated pneumonia) Status: Resolved (2) Altered mental status Status: Resolved Qualifiers: Altered mental status type: delirium Qualified Codes: R41.0 - Disorientation, unspecified (3) Hypoxia Status: Resolved (4) Chronic combined systolic and diastolic CHF (congestive heart failure) Status: Chronic Permanent Comment: Cardiac Cath 2014 with nonischemic cardiomyopathy and EF 40% Echocardiogram 01/2017 with aortic root mildly dilated, grade 1 diastolic dysfunction, EF 55-65% and hypokinesis inferior myocardium Stress test 01/2017 negative for ischemia, had predominantly fixed apical defect with mild reversability and low normal LV function Echo 11/03/17 - EF 40-45%; Pulmonary hypertension w/ pulm pressure 60-65mmHg Last Edited By: Nicole Currie on Nov 04, 2017 09:36 (5) Poor prognosis Status: Chronic (6) End of life care Status: Acute (7) Cachexia Status: Chronic (8) Anemia Status: Acute Qualifiers: Anemia type: iron deficiency Iron deficiency anemia type: chronic blood loss Qualified Codes: D50.0 - Iron deficiency anemia secondary to blood loss ( chronic) (9) Transfusion of blood during current hospitalisation Status: Acute (10) Hypoproteinemia Status: Acute (11) Diarrhea Status: Resolved Qualifiers: Diarrhea type: unspecified type Qualified Codes: R19.7 - Diarrhea, unspecified Clinical Quality Measures DVT/VTE Risk/Contraindication: Risk Factor Score Per Nursin RFS Level Per Nursing on Admit: 4+=Very High MARIA DEL ROSARIO MO DO Nov 16, 2017 10:35
[2017-11-16] MEDS ORDERED: QUET25TA73 PO (11:04)
[2017-11-16] MEDS ORDERED: METR500T21 PO (11:04)
[2017-11-16] MEDS ORDERED: ENOX40DI8 SC (11:04)
[2017-11-16] MEDS ORDERED: ACID1TAB PO (11:04)
[2017-11-16] MEDS ORDERED: ZINC28PA TOP (11:04)
[2017-11-16] MEDS ORDERED: IRON150C3 PO (11:04)
[2017-11-16] MEDS ORDERED: HYDR-34 PO (11:04)
[2017-11-16] MEDS ORDERED: CHOL4PAC3 PO (11:04)
--- NOTE | 2017-11-16 11:06 | Discharge Inst-Skilled Nursing ---
Discharge Inst-Skilled NF Patient Instructions Patient Problems: Pneumonia Weakness Chronic diarrhea Goal: Increase strength Consult/Follow Up/Orders Follow Up Appt.: [facility] appt in 1 week Skilled NF Admit to: [facility] Certification (SNF) I certify that SNF services are required to be given on an inpatient basis because of the above named patient's need for long-term care on a continuing basis for the conditions(s) for which he/she was receiving inpatient hospital services prior to his/her transfer to the SNF. Detention Facility Order: Nursing Services, Prison Keeper-Evaluate & Treat, Physical Therapy-Evaluate & Treat, Speech Language-Evaluate & Treat Discharge Diet: No Restrictions Daily Activity as Tolerated: Yes New & Resume Previous Orders Quiana Benítez Nov 16, 2017 11:05 Pneu Vac Indicated: Yes QUIANA BENÍTEZ DO Nov 16, 2017 11:06
--- NOTE | 2017-11-16 11:23 | Progress Note (SOAP) ---
Subjective Date Seen by Provider: Nov 16, 2017 Time Seen by Provider: 11:00 Subjective/Events-last exam doing well. tolerating diet and having BM's. good pain control. Objective Exam Vital Signs Date Time Temp Pulse Resp B/P (MAP) Pulse Ox O2 Delivery O2 Flow Rate FiO2 11/16/17 08:29 Nasal Cannula 2.00 11/16/17 08:00 96.6 88 18 114/63 (80) 94 Nasal Cannula 2.00 11/16/17 07:05 83 11/16/17 06:38 93 Nasal Cannula 2.00 11/16/17 04:04 97.0 72 18 102/58 (73) 92 Nasal Cannula 2.50 11/15/17 23:46 97.5 89 18 110/61 (77) 95 Nasal Cannula 2.50 11/15/17 22:27 97 Nasal Cannula 3.00 11/15/17 21:16 Nasal Cannula 2.50 11/15/17 20:00 98.0 96 16 108/67 (81) 98 Nasal Cannula 2.50 11/15/17 19:00 101 11/15/17 16:00 97.7 101 16 112/70 (84) 98 Nasal Cannula 2.50 11/15/17 13:08 103 11/15/17 12:00 97.9 97 20 99/54 (69) 95 Nasal Cannula 2.50 I & O 11/16/17 06:59 Intake Total 2630 ml Output Total 2115 ml Balance 515 ml Capillary Refill : Less Than 3 Seconds General Appearance: No Apparent Distress HEENT: PERRL/EOMI Neck: Full Range of Motion Respiratory: Chest Non Tender, Normal Breath Sounds Cardiovascular: Regular Rate, Rhythm Gastrointestinal: normal bowel sounds, non tender, soft Extremity: Normal Capillary Refill Neurologic/Psychiatric: Alert, Oriented x3 Skin: Normal Color Lymphatic: No Adenopathy Results Lab Laboratory Tests 11/16/17 05:20: White Blood Count 7.4, Red Blood Count 2.33L, Hemoglobin 7.2L, Hematocrit 24L, Mean Corpuscular Volume 102H, Mean Corpuscular Hemoglobin 31, Mean Corpuscular Hemoglobin Concent 30L, Red Cell Distribution Width 26.8H, Platelet Count 330, Mean Platelet Volume 12.6H, Neutrophils (%) (Auto) 68, Lymphocytes (%) (Auto) 14 , Monocytes (%) (Auto) 17H, Eosinophils (%) (Auto) 1, Basophils (%) (Auto) 1, Neutrophils # (Auto) 5.0, Lymphocytes # (Auto) 1.0, Monocytes # (Auto) 1.2H, Eosinophils # (Auto) 0.1, Basophils # (Auto) 0.0, Sodium Level 145, Potassium Level 3.8, Chloride Level 119H, Carbon Dioxide Level 20L, Anion Gap 6, Blood Urea Nitrogen 29H, Creatinine 0.65, Estimat Glomerular Filtration Rate > 60, BUN /Creatinine Ratio 45, Glucose Level 63L, Calcium Level 7.9L, Phosphorus Level 3.4, Magnesium Level 1.6L Microbiology 11/13/17 C. difficile [facility] Antigen & Toxins - Final, Complete Assessment/Plan Assessment/Plan Assess & Plan/Chief Complaint s/p sigmoid colon resection and en-bloc SB resection. malnutrition. hypoproteinemia causing interstitial edema and ascites, improving slowly. continue PT and nutritional supplementation.a ambulate and chair as much as possible. will add PO flagyl BID to decrease bacterial load in hopes of decreasing diarrhea. will remove drain in am. ok for SNF when able. Clinical Quality Measures DVT/VTE Risk/Contraindication: Risk Factor Score Per Nursin RFS Level Per Nursing on Admit: 4+=Very High MIKE OTOOLE MD Nov 16, 2017 11:23 am
[2017-11-16 12:30] VITALS: BP 97/58
[2017-11-17] MEDS ORDERED: PANTOPRAZOLE 40 MG (PROTONIX) TAB PO SCH (07:00)
--- NOTE | 2017-11-21 12:25 | Discharge Summary-Hospitalist ---
Diagnosis/Chief Complaint Date of Admission Nov 11, 2017 at 11:40 Date of Discharge Nov 16, 2017 at 14:20 Discharge Date: Nov 16, 2017 Discharge Diagnosis (1) HCAP (healthcare-associated pneumonia) Status: Resolved (2) Altered mental status Status: Resolved (3) Hypoxia Status: Resolved (4) Chronic combined systolic and diastolic CHF (congestive heart failure) Status: Chronic (5) Poor prognosis Status: Chronic (6) End of life care Status: Acute (7) Cachexia Status: Chronic (8) Anemia Status: Acute (9) Transfusion of blood during current hospitalisation Status: Acute (10) Hypoproteinemia Status: Acute (11) Diarrhea Status: Resolved Discharge Summary Discharge Physical Exam Allergies: Coded Allergies: No Known Drug Allergies (Verified , 06/14/17) Vitals & I&Os Vital Signs Date Time Temp Pulse Resp B/P (MAP) Pulse Ox O2 Delivery O2 Flow Rate FiO2 11/16/17 14:20 11/16/17 12:30 96.0 91 20 97 Nasal Cannula 2.00 General Appearance: Alert, Other (frail) Respiratory: Clear to Auscultation Cardiovascular: Regular Rate Psych/Mental Status: Mood NL Hospital Course 11/16/17: Patient about the same Drains still in place and still output is a moderate amount Dr. Contreras consultation is appreciated Eating and drinking well Loose stools are much improved Questran and Lactinex both on board No pain is reported Frail status noted Every time I going to see the patient I can't seem to catch his son to update him on the plan [facility] bed at [facility] is pending at this current time Hospital course: Patient had a lengthy hospital course he was moved back to acute care after failing swing bed due to fever and shortness of breath found to have facility acquired pneumonia is placed on appropriate antibiotics for that but bowel function was difficult to regain but ileus did resolve along with general surgery management and he was placed on TPN. Overall his status was extremely poor and declined and overall unsure if there will be recovery but he was in criteria for nursing facility with skilled care and therapies but likely will need hospice in the very near future. He had completed antibiotics and he was discharged on regular home medication with close follow-up with [facility]. Labs (last 24 hrs) Microbiology 11/13/17 C. difficile GDH Antigen & Toxins - Final, Complete Patient resulted labs reviewed. Discussion & Recommendations Discharge Planning: <30 minutes discharge planning Discharge Home Medications: Active Scripts Active Boudreauxs (Zinc Oxide) 28 Gm Oint 0 Gm TOP NEEDED PRN 30 Days Floranex Tablet (L. Acidophilus/Bulgaricus) 1 Each Tablet 1 Tab.chew PO AC 7 Days Quetiapine Fumarate 25 Mg Tablet 25 Mg PO HS 7 Days Lortab 7.5 Mg Tablet (Acetaminophen/Hydrocodone Bitart) 1 Ea Tablet 1 Ea PO Q4H PRN Prevalite Packet (Cholestyramine/Aspartame) 4 Gm Powd.pack 4 Gm PO TID 3 Days Enoxaparin Sodium 40 Mg/0.4 Ml Syringe 40 Mg SC Q24H 30 Days Ferrex 150 (Iron Polysaccharide Complex) 150 Mg Capsule 150 Mg PO BID WITH MEALS 30 Days Metronidazole 500 Mg Tablet 500 Mg PO BID 4 Days Reported Aspirin EC (Aspirin) 81 Mg Tablet.dr 81 Mg PO DAILY Pantoprazole Sodium 40 Mg Tablet.dr 40 Mg PO DAILY LAST FILLED 06-14-17 #90 Instructions to patient/family Please see electronic discharge instructions given to patient. 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
== END 2017-11-16 14:20 | DRG 193 ==
LOC: 4TH 11:40
PROVIDERS: ADMIT Family Medicine; ATTEND Family Medicine
DX: J18.9 Pneumonia, unspecified organism (principal); R64 Cachexia; E43 Unspecified severe protein-calorie malnutrition; E77.8 Other disorders of glycoprotein metabolism; R18.8 Other ascites; J90 Pleural effusion, not elsewhere classified; I11.0 Hypertensive heart disease with heart failure; I50.42 Chronic combined systolic (congestive) and diastolic (congestive) heart failure; Z66 Do not resuscitate; I42.8 Other cardiomyopathies; R19.7 Diarrhea, unspecified; R41.0 Disorientation, unspecified; D50.0 Iron deficiency anemia secondary to blood loss (chronic); E83.42 Hypomagnesemia; E83.51 Hypocalcemia; E87.8 Other disorders of electrolyte and fluid balance, not elsewhere classified; K22.70 Barrett's esophagus without dysplasia; N40.0 Benign prostatic hyperplasia without lower urinary tract symptoms; I27.20 Pulmonary hypertension, unspecified; K21.9 Gastro-esophageal reflux disease without esophagitis; N28.9 Disorder of kidney and ureter, unspecified; Z99.81 Dependence on supplemental oxygen; Z86.711 Personal history of pulmonary embolism; Z86.718 Personal history of other venous thrombosis and embolism; Z96.641 Presence of right artificial hip joint; Z90.49 Acquired absence of other specified parts of digestive tract
CPT/HCPCS: 36415; 80048; 83735; 84100; 85007; 85025; 85027; 86850; 86900; 86901; 86920; 87324; 87449; 94640; 94760

== ENCOUNTER 2017-12-02 16:43 | Inpatient (IN) | payer MEDICARE, MEDICAID ==
[~2017-12-02] VITALS: Ht 177.8 cm; Wt 65.3 kg
[~2017-12-02 16:43] MED LIST changes: +ACID1TAB PO; +CHOL4PAC3 PO; +ENOX40DI8 SC; +HYDR-34 PO; +IRON150C3 PO; +METR500T21 PO; +QUET25TA73 PO; +ZINC28PA TOP
--- NOTE | 2017-12-02 17:20 | ED General ---
General Source of Information: EMS Exam Limitations: No Limitations History of Present Illness Date Seen by Provider: Dec 02, 2017 Time Seen by Provider: 16:45 Initial Comments Patient is a 72-year-old male who is brought into the emergency room for lethargy from [facility] by [facility] . EMS reports that they were dispatched for the patient become lethargic this afternoon. The senior living reported to EMS that the patient had fallen 2 days ago and they have been watching him closely. He has a hematoma to the left side of his forehead. He also had a sigmoid colon resection on 11/10/[address] Stein at this hospital. EMS reports his temperature was 90F for them. Patient is an unresponsive state on arrival to the emergency room. The temperature was confirmed a rectal thermometer. He was immediately given warmed IV fluids and the bear hugger was placed on him. Timing/Duration: 1-3 Hours Allergies and Home Medications Allergies Coded Allergies: No Known Drug Allergies (Verified , 06/14/17) Home Medications Donepezil HCl 5 Mg Tablet, 5 MG PO DAILY, (Reported) Enoxaparin Sodium 40 Mg/0.4 Ml Syringe, 40 MG SQ DAILY, (Reported) END DATE 12-17-17 Quetiapine Fumarate 25 Mg Tablet, 25 MG PO HS, (Reported) Patient Home Medication List Home Medication List Reviewed: Yes Review of Systems Constitutional: see HPI; No chills, No diaphoresis, No fever (hypothermia) EENTM: see HPI; No no symptoms reported, No ear discharge, No hearing loss Respiratory: see HPI; No cough, No dyspnea on exertion Cardiovascular: see HPI; No chest pain, No edema Gastrointestinal: see HPI; No abdominal pain, No constipation; other (recent colon resection) Genitourinary: see HPI; No decreased output, No discharge Musculoskeletal: see HPI; No back pain, No gout Skin: see HPI; No change in color, No change in hair/nails Psychiatric/Neurological: See HPI; Denies Anxiety, Denies Depressed Hematologic/Lymphatic: See HPI; Denies Anemia Immunological/Allergic: see HPI; denies food allergy All Other Systems Reviewed Negative Unless Noted: Yes Past Swtrbyi-Fdokdw-Mltuor Hx Past Med/Social Hx: Reviewed Nursing Past Med/Soc Hx Patient Social History 2nd Hand Smoke Exposure: No Recent Foreign Travel: No Contact w/Someone Who Travel: No Recent Hopitalizations: Yes (admitted 10/30/17, discharged to swing 11/09/17) Immunizations Up To Date Tetanus Booster (TDap): Unknown PED Vaccines UTD: No Seasonal Allergies Seasonal Allergies: No Past Medical History Surgeries: Yes Abdominal, Appendectomy, Cardiac, Joint Replacement, Orthopedic, Rectal Respiratory: Yes (ASPIRATION PNEUMONIA/SEPSIS 12/2015) Currently Using CPAP: No Currently Using BIPAP: No Cardiac: Yes (CAD, CARDIAC CATHS-NO INTERVENTION; CHF; PVD RIGHT LEG) Chronic Edema/Swelling, Coronary Artery Disease, Deep Vein Thrombosis, High Cholesterol, Hypertension, Peripheral Vascular Neurological: Yes Reproductive Disorders: No Sexually Transmitted Disease: No HIV/AIDS: No Genitourinary: Yes (RENAL CYSTS; INTRERMITTENT RENAL INSUFFICIENCY) Benign Prostatic Hyperpl Gastrointestinal: Yes Gastroesophageal Reflux, Rodrigues's Esophagus, Gastrointestinal Bleed, Diverticulosis, Esophagitis, Hiatal Hernia, Ulcer Musculoskeletal: Yes Arthritis Endocrine: No HEENT: Yes (POOR DENTITION) Loss of Vision: Denies Hearing Impairment: Denies Cancer: Yes (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 9.0oz. 58.719199iq; 25.7 BMI Method:Stated General Appearance: No Apparent Distress, WD/WN HEENT: PERRL/EOMI, TMs Normal, Normal ENT Inspection, Pharynx Normal Neck: Full Range of Motion, Normal Inspection, Non Tender, Supple Respiratory: Chest Non Tender, Lungs Clear, Normal Breath Sounds, No Accessory Muscle Use, No Respiratory Distress Cardiovascular: No Edema, No Gallop, No JVD, No Murmur, Normal Peripheral Pulses, Bradycardia, Other (atrial fibrillation on ECG.) Gastrointestinal: Other (patient has a boardlike abdomen. There are morales still intact from his sigmoid colon resection. There are decreased bowel sounds. ) Rectal: Normal Exam Back: Normal Inspection, No CVA Tenderness, No Vertebral Tenderness Extremity: Normal Capillary Refill, Normal Inspection, Normal Range of Motion, Non Tender, No Calf Tenderness Neurologic/Psychiatric: Other (patient is very lethargic semi-unresponsive. He does make grunting noises and squint his eyes when you try to open them.) Skin: Normal Color, Cool Lymphatic: No Adenopathy Focused Exam Lactate Level Lactic Acid Level Progress/Results/Core Measures Suspected Sepsis SIRS Temperature: Pulse: Respiratory Rate: Blood Pressure / Mean: Results/Orders Lab Results My Orders Medications Given in ED Vital Signs/I&O Capillary Refill : Progress Note : Time: 16:45 Progress Note Patient was placed on the bear hugger, continuous rectal thermometer, and 1 L of warmed normal saline was started as a bolus on the patient on arrival to the emergency room. He previously had room temperature normal saline hanging that was started by EMS and he received 300 mL's prior to stopping it. A Cheng catheter was inserted and he had immediate urine output. 1829 A second liter of warmed normal saline was started on the patient his temperature is 94.0 degrees at this time. 2022: Still awaiting the official CT report for his chest abdomen and pelvis. Dr. Orta was called at this time he agrees with plan of admission to the ICU for severe sepsis and UTI. 2044: A gram of Rocephin was given to the patient in the emergency room but in discussing the case with Dr. Fagan we agree that Zosyn might be more appropriate with the findings on his CT abdomen and pelvis. ECG Initial ECG Impression Date: Dec 02, 2017 Diagnostic Imaging Diagonstic Imaging: Xray, CT Plain Films/CT/US/NM/MRI: chest, abdomen, c-spine, pelvis, head Comments VIA [facility] [place], [place] NAME: TERI DUGAN [facility] REC#: [id number] PT STATUS: REG ER : 1945 PHYSICIAN: ANTOINETTE BROCK ADMIT DATE: 12/02/17/ER Draft Date of Exam:12/02/17 CHEST 1 VIEW, AP/PA ONLY NAME: TERI DUGAN MED REC#: [id number] PT STATUS: REG ER : 1945 PHYSICIAN: ANTOINETTE BROCK ADMIT DATE: 12/02/17/ER Draft Date of Exam:12/02/17 CT HEAD/CERVICAL SPINE WO Clinical indication: Patient fell twice 2 days ago, mostly unresponsive now. Exam: Head CT without IV contrast. Axial CT scan of the cervical spine with sagittal and coronal reformations. Comparison: None. Findings: Head CT: There is no evidence of acute cerebral infarct, intracranial hemorrhage, or gross mass effect. There is diffuse brain parenchymal volume loss seen. There are patchy and confluent areas of low-attenuation white matter changes throughout both cerebral hemispheres and periventricular region seen. 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 There are small chronic lacunar infarcts involving right basal ganglia region and left cerebellum. There is no significant midline shift or herniation. There is no evidence of hydrocephalus. The basal cisterns are unremarkable. The skull, extracranial soft tissue, and orbits are unremarkable. There is moderate mucosal thickening involving the right maxillary sinus, ethmoid sinus and frontal sinus. There is air-fluid level in the right frontal sinus. Temporal bones show no significant abnormality. Cervical spine: There is no acute cervical spine fracture or dislocation. There are cervical spine degenerative disease with vertebral body spurs, facet arthropathy, moderate to severe loss of intervertebral disc height seen from the C2-C7 levels. There is multilevel moderate to severe bony neural foramen narrowing involving the cervical spine and mild to moderate areas of central canal stenosis seen mainly at the C4-C5 and C5-C6 levels. Soft tissue edema of the neck is noted. There is partially visualized bilateral pleural effusions. Impression: 1: There is no definite CT evidence of interval acute cerebral infarction, intracranial hemorrhage, or mass seen. Given the diffuse low attenuation changes throughout the brain parenchyma which can obscure more subtle findings, if there is clinical concern for acute cerebral infarction, MRI of the brain would better evaluate. 2: Suspected multiple areas of chronic ischemic changes involving the brain parenchyma. There is also diffuse brain parenchymal volume loss. 3: There is cervical spine degenerative disease with no acute cervical spine fracture or dislocation. 4: Paranasal sinusitis. 5: Incompletely imaged bilateral pleural effusions. Dictated on workstation # [id number] Dict: 12/02/17 1855 Trans: 12/02/171909 [facility] [id number] Interpreted by: ROCIO ALLEN MD Electronically signed by: Clinical indication: Patient is unresponsive. Exam: Portable chest x-ray upright view. Comparison: Portable chest x-ray semiupright view. Findings: There is no pneumothorax. There is blunting of both costophrenic angle regions concerning for bilateral pleural effusions which was also noted on the prior study. There is bilateral groundglass opacifications in both midlung montero and patchy consolidation in both lung bases. There is mild cardiomegaly and mild pulmonary vascular congestion. There are postop changes to the upper abdominal region. Impression: 1.: There is bilateral pleural effusions and bilateral lung infiltrates which may represent pulmonary congestion. Infectious or inflammatory process cannot be completely excluded. There is also bilateral pleural effusions. 2: There is mild cardiomegaly with mild pulmonary vascular congestion which could be related to congestive heart failure. Dictated on workstation # [id number] Dict: 12/02/17 1838 Trans: 12/02/17 1903 [facility] [id number] Interpreted by: ROCIO ALLEN MD Electronically signed by: NAME: TERI DUGAN [facility] REC#: [id number] PT STATUS: REG ER : 1945 PHYSICIAN: ANTOINETTE BROCK ADMIT DATE: 12/02/17/ER Draft Date of Exam:12/02/17 CT CHEST/ABDOMEN/PELVIS W Clinical indication: Patient came to ER with core temperature of 88 degrees mostly unresponsive, coughing and unable to answer questions. Exam: CT scan of the chest, abdomen and pelvis performed with 100 cc of Omnipaque 350 IV contrast. Coronal and sagittal reformatted images were created. Comparison: CT scan of the abdomen and pelvis without contrast dated 11/01/2017. Findings: Chest CT: There is no significant change to the moderate to large size bilateral pleural effusions. There is compressive atelectasis and consolidation involving both lower lobes with only a small amount of aeration, seen anteriorly. There is mild compressive atelectasis involving the posterior aspects of both upper lobes. Cardiomegaly is seen. Pulmonary bronchi show no significant abnormality. The thoracic aorta is nonaneurysmal and measures 3.8 cm in its ascending portion. There is no thoracic, aortic or abdominal aortic aneurysm or dissection seen. The celiac artery, SMA and bilateral renal arteries are patent. The bilateral iliac arteries are unremarkable. There is mild enlargement of the left main pulmonary artery measuring 3.3 cm. This may be related to lung volume loss versus pulmonary hypertension. Otherwise, the visualized pulmonary vasculature shows no gross abnormality. Visualized portion of thyroid gland is slightly heterogeneous. There is anasarca noted. There is no major mediastinal or hilar lymphadenopathy. CT abdomen and pelvis: There is geographic heterogeneous enhancement of the liver seen on this predominantly arterial phase exam. There is no measurable mass seen. Liver is mildly enlarged measuring 17.3 cm in craniocaudal dimension. The spleen is not visualized. There is heterogeneous and irregular appearance of both kidneys which was also noted on the prior CT scan. There appears to be a large cyst involving the anterior aspect of left kidney which measures grossly 8.2 cm. There is abdominal ascites noted diffusely. There is abdominal ascites and anasarca, which greatly limits evaluation for intra-abdominal structures. The pancreas has stable configuration. Gallbladder is surgically resected as noted on the prior study. There is no evidence of dilated small or large bowel. Previously seen dilated large bowel has resolved. There are collapsed loops of small bowel overlying the abdomen. There is no evidence of enteric contrast pooling or abnormal contrast blush seen as visualized. There is a stable fluid collection around this structure in the right lateral coronal fascia noted which appears stable. There are multiple surgical clips in the epigastric region and paraesophageal region, distally. There are postop changes involving the mid abdominal intestines and the left pelvis region. There is no significant contrast excretion on delayed phases. Cheng catheter is noted. Wires within the rectum are noted. There are degenerative spurs seen throughout the visualized portion of the spine. Right hip arthroplasty and screws in left hip are seen with streak artifact obscuring portion of the pelvis. Impression: 1: There is no significant change in the moderate to large bilateral pleural effusions with compressive atelectasis involving both lungs. 2: The thoracic and abdominal aorta shows no evidence of aneurysmal dilation or dissection. 3: There is anasarca and diffuse abdominal ascites which limits evaluation of organ structures. 4: There is stable appearance of the heterogeneous appearing bilateral kidneys. Large left renal cystic structure is suspected. 5: There is no significant contrast excretion of the kidneys on delayed phases. This may be related to hypotension/shock or renal disease. 6: There is no evidence of intestinal obstruction or intraabdominal free air. The previously seen enlarged colon has resolved. 7. The remainder of this exam shows no significant interval change compared to the prior study of comparison. Dictated on workstation # [id number] Dict: 12/02/171918 Trans: 12/02/172021 [facility] [id number] Interpreted by: ROCIO ALLEN MD Electronically signed by: Reviewed: Reviewed by Me Departure Communication (Admissions) Time/Spoke to Admitting Phy: 20:[address] Mathis at this time he agrees with plan of admission. Impression Primary Impression: Sepsis Additional Impression: UTI (urinary tract infection) Disposition: ADMITTED INPATIENT Condition: Critical Admissions Decision to Admit Reason: Admit from ER (General) Decision to Admit/Date: Dec 02, 2017 Time/Decision to Admit Time: 20:23 Departure-Patient Inst. Referrals: [facility] (PCP/Family) Primary Care Physician ANTOINETTE BROCK Dec 02, 2017 17:20
[2017-12-02 17:25] LABS: BILIRUBIN,URINE NEGATIVE (NEGATIVE); CLARITY,URINE VERY CLOUDY; COLOR,URINE YELLOW; GLUCOSE, URINE (UA) NEGATIVE (NEGATIVE); KETONES,URINE NEGATIVE (NEGATIVE); LEUKOCYTE ESTERASE ,URINE 3+ (NEGATIVE); NITRITE,URINE POSITIVE (NEGATIVE); PH,URINE 6 (5-9); PROTEIN,URINE 3+ (NEGATIVE); UROBILINOGEN,URINE NORMAL (NORMAL)
[2017-12-02 17:26] LABS: HEMATOCRIT 29 % (40-54); HEMOGLOBIN 8.8 G/DL (13.3-17.7); MEAN CORPUSCULAR HEMOGLOBIN 31 PG (25-34); MEAN CORPUSCULAR HGB CONC 30 G/DL (32-36); MEAN CORPUSCULAR VOLUME 101 FL (80-99); MEAN PLATELET VOLUME 13.2 FL (7.4-10.4); PLATELET COUNT 684 10^3/uL (130-400); RED BLOOD COUNT 2.85 10^6/uL (4.35-5.85); RED CELL DISTRIBUTION WIDTH 26.9 % (10.0-14.5)
[2017-12-02] MEDS ORDERED: IOHEXOL 350 MG/ML 100 ML (OMNIPAQUE 350) VIAL IV ONE (17:30)
[2017-12-02] MEDS ORDERED: NS 100 ML (IVPB) BAG IV ONE (17:30)
[2017-12-02 17:35] LABS: WBC,URINE >100 /HPF
[2017-12-02 17:36] LABS: BACTERIA,URINE MODERATE /HPF
[2017-12-02 17:39] LABS: INR 1.2 (0.8-1.4); PROTHROMBIN TIME PATIENT 15.2 SEC (12.2-14.7)
[2017-12-02 17:45] LABS: ALANINE AMINOTRANSFERASE 34 U/L (0-55); ALBUMIN 2.1 GM/DL (3.2-4.5); ALKALINE PHOSPHATASE 116 U/L (40-136); BILIRUBIN,TOTAL 0.4 MG/DL (0.1-1.0); BUN/CREATININE RATIO 23; CALCIUM 8.5 MG/DL (8.5-10.1); CARBON DIOXIDE 24 MMOL/L (21-32); CHLORIDE 119 MMOL/L (98-107); CREATININE SERUM 0.79 MG/DL (0.60-1.30); GFR ESTIMATED > 60; GLUCOSE 83 MG/DL (70-105); POTASSIUM 3.1 MMOL/L (3.6-5.0); SODIUM 150 MMOL/L (135-145); TOTAL PROTEIN 5.2 GM/DL (6.4-8.2)
[2017-12-02 17:58] LABS: EOSINOPHILS % (MANUAL) 1 %; LYMPHOCYTES % (MANUAL) 5 %; MONOCYTES % (MANUAL) 5 %; NEUTROPHILS % (MANUAL) 89 %; NUCLEATED RED BLOOD CELLS 9; WHITE BLOOD COUNT 7.3 10^3/uL (4.3-11.0)
[2017-12-02 17:59] LABS: BURR CELLS SLIGHT; CRENATED RBC SLIGHT; HYPOCHROMASIA MODERATE
--- NOTE | 2017-12-02 19:04 | Diagnostic Imaging Report ---
Clinical indication: Patient is unresponsive. Exam: Portable chest x-ray upright view. Comparison: Portable chest x-ray semiupright view. Findings: There is no pneumothorax. There is blunting of both costophrenic angle regions concerning for bilateral pleural effusions which was also noted on the prior study. There is bilateral groundglass opacifications in both midlung montero and patchy consolidation in both lung bases. There is mild cardiomegaly and mild pulmonary vascular congestion. There are postop changes to the upper abdominal region. Impression: 1.: There is bilateral pleural effusions and bilateral lung infiltrates which may represent pulmonary congestion. Infectious or inflammatory process cannot be completely excluded. There is also bilateral pleural effusions. 2: There is mild cardiomegaly with mild pulmonary vascular congestion which could be related to congestive heart failure. Dictated by: Dictated on workstation # [id number]
--- NOTE | 2017-12-02 19:10 | Diagnostic Imaging Report ---
Clinical indication: Patient fell twice 2 days ago, mostly unresponsive now. Exam: Head CT without IV contrast. Axial CT scan of the cervical spine with sagittal and coronal reformations. Comparison: None. Findings: Head CT: There is no evidence of acute cerebral infarct, intracranial hemorrhage, or gross mass effect. There is diffuse brain parenchymal volume loss seen. There are patchy and confluent areas of low-attenuation white matter changes throughout both cerebral hemispheres and periventricular region seen. 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 There are small chronic lacunar infarcts involving right basal ganglia region and left cerebellum. There is no significant midline shift or herniation. There is no evidence of hydrocephalus. The basal cisterns are unremarkable. The skull, extracranial soft tissue, and orbits are unremarkable. There is moderate mucosal thickening involving the right maxillary sinus, ethmoid sinus and frontal sinus. There is air-fluid level in the right frontal sinus. Temporal bones show no significant abnormality. Cervical spine: There is no acute cervical spine fracture or dislocation. There are cervical spine degenerative disease with vertebral body spurs, facet arthropathy, moderate to severe loss of intervertebral disc height seen from the C2-C7 levels. There is multilevel moderate to severe bony neural foramen narrowing involving the cervical spine and mild to moderate areas of central canal stenosis seen mainly at the C4-C5 and C5-C6 levels. Soft tissue edema of the neck is noted. There is partially visualized bilateral pleural effusions. Impression: 1: There is no definite CT evidence of interval acute cerebral infarction, intracranial hemorrhage, or mass seen. Given the diffuse low attenuation changes throughout the brain parenchyma which can obscure more subtle findings, if there is clinical concern for acute cerebral infarction, MRI of the brain would better evaluate. 2: Suspected multiple areas of chronic ischemic changes involving the brain parenchyma. There is also diffuse brain parenchymal volume loss. 3: There is cervical spine degenerative disease with no acute cervical spine fracture or dislocation. 4: Paranasal sinusitis. 5: Incompletely imaged bilateral pleural effusions. Dictated by: Dictated on workstation # [id number]
[2017-12-02] MEDS ORDERED: cefTRIAXone INJECTION 1,000 MG in NS (IVPB) 50 ML IV ONE (19:15)
[2017-12-02] MEDS ORDERED: NS 1000 ML IV BAG IV ONE (19:30)
[2017-12-02] MEDS ORDERED: NS IV 1000 ML 1,000 ML IV SCH (19:30)
--- NOTE | 2017-12-02 20:22 | Diagnostic Imaging Report ---
Clinical indication: Patient came to ER with core temperature of 88 degrees mostly unresponsive, coughing and unable to answer questions. Exam: CT scan of the chest, abdomen and pelvis performed with 100 cc of Omnipaque 350 IV contrast. Coronal and sagittal reformatted images were created. Comparison: CT scan of the abdomen and pelvis without contrast dated 11/01/2017. Findings: Chest CT: There is no significant change to the moderate to large size bilateral pleural effusions. There is compressive atelectasis and consolidation involving both lower lobes with only a small amount of aeration, seen anteriorly. There is mild compressive atelectasis involving the posterior aspects of both upper lobes. Cardiomegaly is seen. Pulmonary bronchi show no significant abnormality. The thoracic aorta is nonaneurysmal and measures 3.8 cm in its ascending portion. There is no thoracic, aortic or abdominal aortic aneurysm or dissection seen. The celiac artery, SMA and bilateral renal arteries are patent. The bilateral iliac arteries are unremarkable. There is mild enlargement of the left main pulmonary artery measuring 3.3 cm. This may be related to lung volume loss versus pulmonary hypertension. Otherwise, the visualized pulmonary vasculature shows no gross abnormality. Visualized portion of thyroid gland is slightly heterogeneous. There is anasarca noted. There is no major mediastinal or hilar lymphadenopathy. CT abdomen and pelvis: There is geographic heterogeneous enhancement of the liver seen on this predominantly arterial phase exam. There is no measurable mass seen. Liver is mildly enlarged measuring 17.3 cm in craniocaudal dimension. The spleen is not visualized. There is nonspecific heterogeneous and irregular appearance of both kidneys which was also noted on the prior CT scan. There appears to be a large cyst involving the anterior aspect of left kidney which measures grossly 8.2 cm. There is diffuse abdominal ascites and anasarca, which greatly limits evaluation for intra-abdominal structures. The pancreas has stable configuration. Gallbladder is surgically resected as noted on the prior study. There is no evidence of dilated small or large bowel. Previously seen dilated large bowel has resolved. There are collapsed loops of small bowel overlying the abdomen. There is no evidence of enteric contrast pooling or abnormal contrast blush seen as visualized. There is a stable fluid collection around this structure in the right lateral coronal fascia noted which appears stable. There are multiple surgical clips in the epigastric region and paraesophageal region, distally. There are postop changes involving the mid abdominal intestines and the left pelvis region. There is no significant contrast excretion on delayed phases. Cheng catheter is noted. Wires within the rectum are noted. There are degenerative spurs seen throughout the visualized portion of the spine. Right hip arthroplasty and screws in left hip are seen with streak artifact obscuring portion of the pelvis. Impression: 1: There is no significant change in the moderate to large bilateral pleural effusions with compressive atelectasis involving both lungs. 2: The thoracic and abdominal aorta shows no evidence of aneurysmal dilation or dissection. 3: There is anasarca and diffuse abdominal ascites which limits evaluation of organ structures. 4: There is stable nonspecific heterogeneous appearance of both kidneys. Large left renal cystic structure is suspected. 5: There is no significant contrast excretion of the kidneys on delayed phases. This may be related to hypotension/shock or renal disease. 6: There is no evidence of intestinal obstruction or intraabdominal free air. The previously seen enlarged colon has resolved. 7: The remainder of this exam shows no significant interval change compared to the prior study of comparison. Dictated by: Dictated on workstation # [id number]
[2017-12-02] MEDS ORDERED: NS IV 1000 ML 1,000 ML IV ONE (20:36)
[2017-12-02 22:30] VITALS: BP 92/56
[2017-12-02] MEDS ORDERED: NS IV 1000 ML 1,496.85 ML IV PRN (22:30)
[2017-12-02 22:45] VITALS: BP 93/59
[2017-12-02 23:00] VITALS: BP 95/59
[2017-12-02] MEDS: POTASSIUM CL 10MEQ/50ML IVPB 50 ML IV SCH (23:03)
[2017-12-02] MEDS: NOREPINEPHRINE 4 MG in NS (IVPB) 250 ML IV SCH (23:03)
[2017-12-02] MEDS: PIPERACILLIN/TAZOBACTAM 3.375 GM in NS (IVPB) 100 ML IV SCH (23:19)
[2017-12-02 23:30] VITALS: BP 98/58
[2017-12-02 23:45] VITALS: BP 100/61
[2017-12-02] MEDS ORDERED: RT-ALBUTEROL/IPRATROPIUM 3 ML (DUONEB) VIAL INH PRN (23:45)
[2017-12-03] VITALS (16 sets, daily range): BP systolic 75–118; BP diastolic 49–77
[2017-12-03] MEDS: POTASSIUM CL 10MEQ/50ML IVPB 50 ML IV SCH ×3 (00:08→03:54)
[2017-12-03] MEDS: NS IV 1000 ML 1,000 ML IV SCH ×4 (01:53→11:21)
[2017-12-03 03:25] LABS: HEMATOCRIT 28 % (40-54); HEMOGLOBIN 8.4 G/DL (13.3-17.7); MEAN CORPUSCULAR HEMOGLOBIN 30 PG (25-34); MEAN CORPUSCULAR HGB CONC 31 G/DL (32-36); MEAN CORPUSCULAR VOLUME 100 FL (80-99); MEAN PLATELET VOLUME 13.2 FL (7.4-10.4); PLATELET COUNT 676 10^3/uL (130-400); RED BLOOD COUNT 2.76 10^6/uL (4.35-5.85); RED CELL DISTRIBUTION WIDTH 27.6 % (10.0-14.5); WHITE BLOOD COUNT 10.4 10^3/uL (4.3-11.0)
[2017-12-03 03:40] LABS: BUN/CREATININE RATIO 23; CARBON DIOXIDE 22 MMOL/L (21-32); CHLORIDE 123 MMOL/L (98-107); CREATININE SERUM 0.79 MG/DL (0.60-1.30); POTASSIUM 3.6 MMOL/L (3.6-5.0); SODIUM 151 MMOL/L (135-145)
[2017-12-03 03:41] LABS: GFR ESTIMATED > 60; MAGNESIUM 1.6 MG/DL (1.8-2.4); PHOSPHORUS 3.1 MG/DL (2.3-4.7)
[2017-12-03] MEDS ORDERED: DEXTROSE 50% 50 ML (IMS) SYR ONE (03:42)
[2017-12-03 03:43] LABS: GLUCOSE 47 MG/DL (70-105)
[2017-12-03] MEDS: MAGNESIUM 1 GM/100 ML IVPB 100 ML IV SCH ×2 (05:07→06:11)
[2017-12-03] MEDS ORDERED: MAGNESIUM 1 GM/100 ML IVPB 100 ML IV SCH (06:00)
[2017-12-03] MEDS ORDERED: POTASSIUM CL 10MEQ/50ML IVPB 50 ML IV SCH (06:00)
[2017-12-03] MEDS ORDERED: KCL 20 MEQ TAB (K-DUR) PO SCH (06:00)
[2017-12-03] MEDS: PIPERACILLIN/TAZOBACTAM 3.375 GM in NS (IVPB) 100 ML IV SCH (06:38)
--- NOTE | 2017-12-03 07:51 | Diagnostic Imaging Report ---
PATIENT HISTORY: Dyspnea. TECHNIQUE: Single frontal view of the chest COMPARISON: 12/02/2017 FINDINGS: There are small to moderate bilateral pleural effusions, stable since the prior study. There is mild cardiomegaly with central vascular congestion. Bibasilar airspace opacities are seen. There is no pneumothorax. No acute osseous abnormality is seen. IMPRESSION: Stable mild cardiomegaly with central vascular congestion. Stable bilateral pleural effusions with associated bibasilar airspace opacities. Dictated by: Dictated on workstation # [id number]
[2017-12-03] MEDS ORDERED: RT-ALBUTEROL/IPRATROPIUM 3 ML (DUONEB) VIAL INH SCH (08:00)
[2017-12-03] MEDS ORDERED: DONE5TAB30 PO (08:45)
[2017-12-03] MEDS ORDERED: ENOX40DI13 SQ (08:45)
[2017-12-03] MEDS ORDERED: QUET25TA PO (08:45)
--- NOTE | 2017-12-03 11:19 | History & Physicial ([facility]) ---
HPI History of Present Illness: 72 yo M that presented from [place] unresponsive. Spoke with [facility] nurse and she stated that he started to feel bad 2 days ago and stopped communicating yesterday prior to being sent to [place] Spoke with son who is next of kin and he was in agreement with making patient DNR and transitioning to comfort care. Son then notified other family of grave prognosis as patient was in active dying phase. Patient was transitioned to comfort care with family at bedside and passed peacefully this afternoon. Source: family, senior living records Exam Limitations: clinical condition Date seen by provider: Dec 03, 2017 Time Seen by Provider: 09:25 Attending Physician Lavon Marie MD PCP Center/[facility] [place] Consult Date of Admission Dec 02, 2017 at 20:00 Home Medications Home Medications Reviewed patient Home Medication Reconciliation performed by pharmacy medication reconciliations armorer technician and/or nursing. Patients Allergies have been reviewed. Allergies Coded Allergies: No Known Drug Allergies (Verified , 06/14/17) [id number]-Uidcec-Ngjgpa Hx Patient Social History Living Status: [place] Alcohol Use: Denies Use Recreational Drug Use: No 2nd Hand Smoke Exposure: No Recent Foreign Travel: No Contact w/other who traveled: No Recent Hopitalizations: Yes (admitted 10/30/17, discharged to [facility] 11/09/17) Recent Infectious Disease Expo: No Physical Abuse Screen: No Sexual Abuse: No Immunizations Up To Date Tetanus Booster (TDap): Unknown Date of Pneumonia Vaccine: Nov 17, 2017 Past Medical History PMHx: HTN Chronic non-ischemic systolic heart failure GERD Thrombocythemia Anemia Intermittent renal insufficiency BPH Posterior tibial vein thrombosis Pernicious anemia/B12 deficiency Rodrigues's esophagus Pulmonary embolism Sigmoid lesion nearly obstructive, biopsied 03/2017 PSurgHx: Right hip replacement Gastrectomy Splenectomy Appendectomy Multiple EGD/colonoscopies Sigmoid lesion biopsy Small bowel resection with anastamosis, enterorraphy - 11/06/17 per [facility] Family Medical History Significant Family History: No Pertinent Family Hx Review of Systems ([facility]) Constitutional: other (Unable to perform due to altered mental status) Reviewed Test Results Reviewed Test Results Lab Laboratory Tests Test 12/03/17 03:05 12/03/17 05:02 Range/Units White Blood Count 10.4 4.3-11.0 10^3/uL Red Blood Count 2.76 L 4.35-5.85 10^6/uL Hemoglobin 8.4 L 13.3-17.7 G/DL Hematocrit 28 L 40-54 % Mean Corpuscular Volume 100 H 80-99 FL Mean Corpuscular Hemoglobin 30 25-34 PG Mean Corpuscular Hemoglobin Concent 31 L 32-36 G/DL Red Cell Distribution Width 27.6 H 10.0-14.5 % Platelet Count 676 H 130-400 10^3/uL Mean Platelet Volume 13.2 H 7.4-10.4 FL Neutrophils (%) (Auto) 42-75 % Lymphocytes (%) (Auto) 12-44 % Monocytes (%) (Auto) 0-12 % Eosinophils (%) (Auto) 0-10 % Basophils (%) (Auto) 0-10 % Neutrophils # (Auto) 1.8-7.8 X 10^3 Lymphocytes # (Auto) 1.0-4.0 X 10^3 Monocytes # (Auto) 0.0-1.0 X 10^3 Eosinophils # (Auto) 0.0-0.3 10^3/uL Basophils # (Auto) 0.0-0.1 10^3/uL Sodium Level 151 H 135-145 MMOL/L Potassium Level 3.6 3.6-5.0 MMOL/L Chloride Level 123 H 98-107 MMOL/L Carbon Dioxide Level 22 21-32 MMOL/L Anion Gap 6 5-14 MMOL/L Blood Urea Nitrogen 18 7-18 MG/DL Creatinine 0.79 0.60-1.30 MG/DL Estimat Glomerular Filtration Rate > 60 BUN/Creatinine Ratio 23 Glucose Level 47 *L 70-105 MG/DL Lactic Acid Level 0.76 0.50-2.00 MMOL/L Calcium Level 8.0 L 8.5-10.1 MG/DL Phosphorus Level 3.1 2.3-4.7 MG/DL Magnesium Level 1.6 L 1.8-2.4 MG/DL Glucometer 75 70-110 MG/DL Radiology Date of Exam: 12/02/17 CHEST 1 VIEW, AP/PA ONLY Clinical indication: Patient is unresponsive. Exam: Portable chest x-ray upright view. Comparison: Portable chest x-ray semiupright view. Findings: There is no pneumothorax. There is blunting of both costophrenic angle regions concerning for bilateral pleural effusions which was also noted on the prior study. There is bilateral groundglass opacifications in both midlung montero and patchy consolidation in both lung bases. There is mild cardiomegaly and mild pulmonary vascular congestion. There are postop changes to the upper abdominal region. Impression: 1.: There is bilateral pleural effusions and bilateral lung infiltrates which may represent pulmonary congestion. Infectious or inflammatory process cannot be completely excluded. There is also bilateral pleural effusions. 2: There is mild cardiomegaly with mild pulmonary vascular congestion which could be related to congestive heart failure. Date of Exam: 12/02/17 CT HEAD/CERVICAL SPINE WO Clinical indication: Patient fell twice 2 days ago, mostly unresponsive now. Exam: Head CT without IV contrast. Axial CT scan of the cervical spine with sagittal and coronal reformations. Comparison: None. Findings: Head CT: There is no evidence of acute cerebral infarct, intracranial hemorrhage, or gross mass effect. There is diffuse brain parenchymal volume loss seen. There are patchy and confluent areas of low-attenuation white matter changes throughout both cerebral hemispheres and periventricular region seen. 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 There are small chronic lacunar infarcts involving right basal ganglia region and left cerebellum. There is no significant midline shift or herniation. There is no evidence of hydrocephalus. The basal cisterns are unremarkable. The skull, extracranial soft tissue, and orbits are unremarkable. There is moderate mucosal thickening involving the right maxillary sinus, ethmoid sinus and frontal sinus. There is air-fluid level in the right frontal sinus. Temporal bones show no significant abnormality. Cervical spine: There is no acute cervical spine fracture or dislocation. There are cervical spine degenerative disease with vertebral body spurs, facet arthropathy, moderate to severe loss of intervertebral disc height seen from the C2-C7 levels. There is multilevel moderate to severe bony neural foramen narrowing involving the cervical spine and mild to moderate areas of central canal stenosis seen mainly at the C4-C5 and C5-C6 levels. Soft tissue edema of the neck is noted. There is partially visualized bilateral pleural effusions. Impression: 1: There is no definite CT evidence of interval acute cerebral infarction, intracranial hemorrhage, or mass seen. Given the diffuse low attenuation changes throughout the brain parenchyma which can obscure more subtle findings, if there is clinical concern for acute cerebral infarction, MRI of the brain would better evaluate. 2: Suspected multiple areas of chronic ischemic changes involving the brain parenchyma. There is also diffuse brain parenchymal volume loss. 3: There is cervical spine degenerative disease with no acute cervical spine fracture or dislocation. 4: Paranasal sinusitis. 5: Incompletely imaged bilateral pleural effusions. of Exam: 12/02/17 CT CHEST/ABDOMEN/PELVIS W Clinical indication: Patient came to ER with core temperature of 88 degrees mostly unresponsive, coughing and unable to answer questions. Exam: CT scan of the chest, abdomen and pelvis performed with 100 cc of Omnipaque 350 IV contrast. Coronal and sagittal reformatted images were created. Comparison: CT scan of the abdomen and pelvis without contrast dated 11/01/2017. Findings: Chest CT: There is no significant change to the moderate to large size bilateral pleural effusions. There is compressive atelectasis and consolidation involving both lower lobes with only a small amount of aeration, seen anteriorly. There is mild compressive atelectasis involving the posterior aspects of both upper lobes. Cardiomegaly is seen. Pulmonary bronchi show no significant abnormality. The thoracic aorta is nonaneurysmal and measures 3.8 cm in its ascending portion. There is no thoracic, aortic or abdominal aortic aneurysm or dissection seen. The celiac artery, SMA and bilateral renal arteries are patent. The bilateral iliac arteries are unremarkable. There is mild enlargement of the left main pulmonary artery measuring 3.3 cm. This may be related to lung volume loss versus pulmonary hypertension. Otherwise, the visualized pulmonary vasculature shows no gross abnormality. Visualized portion of thyroid gland is slightly heterogeneous. There is anasarca noted. There is no major mediastinal or hilar lymphadenopathy. CT abdomen and pelvis: There is geographic heterogeneous enhancement of the liver seen on this predominantly arterial phase exam. There is no measurable mass seen. Liver is mildly enlarged measuring 17.3 cm in craniocaudal dimension. The spleen is not visualized. There is nonspecific heterogeneous and irregular appearance of both kidneys which was also noted on the prior CT scan. There appears to be a large cyst involving the anterior aspect of left kidney which measures grossly 8.2 cm. There is diffuse abdominal ascites and anasarca, which greatly limits evaluation for intra-abdominal structures. The pancreas has stable configuration. Gallbladder is surgically resected as noted on the prior study. There is no evidence of dilated small or large bowel. Previously seen dilated large bowel has resolved. There are collapsed loops of small bowel overlying the abdomen. There is no evidence of enteric contrast pooling or abnormal contrast blush seen as visualized. There is a stable fluid collection around this structure in the right lateral coronal fascia noted which appears stable. There are multiple surgical clips in the epigastric region and paraesophageal region, distally. There are postop changes involving the mid abdominal intestines and the left pelvis region. There is no significant contrast excretion on delayed phases. Cheng catheter is noted. Wires within the rectum are noted. There are degenerative spurs seen throughout the visualized portion of the spine. Right hip arthroplasty and screws in left hip are seen with streak artifact obscuring portion of the pelvis. Impression: 1: There is no significant change in the moderate to large bilateral pleural effusions with compressive atelectasis involving both lungs. 2: The thoracic and abdominal aorta shows no evidence of aneurysmal dilation or dissection. 3: There is anasarca and diffuse abdominal ascites which limits evaluation of organ structures. 4: There is stable nonspecific heterogeneous appearance of both kidneys. Large left renal cystic structure is suspected. 5: There is no significant contrast excretion of the kidneys on delayed phases. This may be related to hypotension/shock or renal disease. 6: There is no evidence of intestinal obstruction or intraabdominal free air. The previously seen enlarged colon has resolved. 7: The remainder of this exam shows no significant interval change compared to the prior study of comparison. Physical Exam-([facility]) Physical Exam Vital Signs VS - Last 72 Hours, by Label 12/02/17 12/02/17 12/02/17 12/02/17 16:44 17:13 21:50 21:50 Temp 88.8 97.4 97.4 Pulse 48 78 78 Resp 13 25 25 B/P (MAP) 115/80 (92) 97/58 97/58 (92) Pulse Ox 99 94 95 95 O2 Delivery Room Air OxyMask OxyMask OxyMask O2 Flow Rate 4.00 4.00 4.00 FiO2 94 12/02/17 12/02/17 12/02/17 12/02/17 22:30 22:30 22:45 23:00 Temp 97.9 97.2 Pulse 92 82 84 Resp 24 19 28 B/P (MAP) 92/56 (68) 93/59 (70) 95/59 (71) Pulse Ox 99 100 100 100 O2 Delivery Room Air OxyMask OxyMask OxyMask O2 Flow Rate 4.00 4.00 4.00 12/02/17 12/02/17 12/02/17 12/02/17 23:00 23:10 23:10 23:30 Pulse 85 82 85 Resp 22 B/P (MAP) 98/58 (71) Pulse Ox 100 100 98 O2 Delivery OxyMask Room Air O2 Flow Rate 5.00 12/02/17 12/03/17 12/03/17 12/03/17 23:45 00:00 00:00 00:15 Temp 97.2 97.2 Pulse 86 85 86 Resp 28 25 B/P (MAP) 100/61 (74) 98/61 (73) 99/60 (73) Pulse Ox 97 97 100 97 O2 Delivery Room Air Room Air Room Air Room Air 12/03/17 12/03/17 12/03/17 12/03/17 00:30 01:00 01:00 02:00 Temp 97.4 Pulse 85 85 84 84 Resp 17 B/P (MAP) 99/61 (74) 103/62 (76) 100/62 (75) Pulse Ox 98 98 99 O2 Delivery Room Air Room Air Room Air 12/03/17 12/03/17 12/03/17 12/03/17 03:00 04:00 04:00 05:00 Temp 97.4 97.3 97.3 Pulse 84 86 83 Resp 24 26 B/P (MAP) 96/61 (73) 96/59 (71) 100/62 (75) Pulse Ox 100 100 98 100 O2 Delivery Room Air Room Air Room Air Room Air 12/03/17 12/03/17 12/03/17 12/03/17 06:00 07:00 07:00 08:00 Temp 97.1 97.0 97.0 Pulse 77 78 79 79 Resp 24 B/P (MAP) 95/62 (73) 98/63 (75) 102/65 (77) Pulse Ox 100 99 98 O2 Delivery Room Air Room Air Room Air 12/03/17 12/03/17 12/03/17 12/03/17 08:00 09:00 09:42 10:00 Temp 97.2 97.4 Pulse 84 81 Resp 27 B/P (MAP) 104/67 (79) 103/66 (78) Pulse Ox 99 97 98 95 O2 Delivery Room Air Room Air Room Air Room Air 12/03/17 12/03/17 12/03/17 12/03/17 11:00 12:00 12:00 12:28 Temp 97.4 97.4 Pulse 80 55 Resp 23 31 B/P (MAP) 96/62 (73) 118/77 (91) Pulse Ox 98 99 80 90 O2 Delivery Room Air Room Air Room Air OxyMask O2 Flow Rate 15.00 12/03/17 12/03/17 12/03/17 13:00 13:00 15:00 Temp 97.4 Pulse 82 35 Resp 23 B/P (MAP) 75/49 (58) Pulse Ox 70 O2 Delivery Room Air Room Air Capillary Refill : Less Than 3 Seconds General Appearance: moderate distress, cachetic, other (unresponsive to painful stimuli) Respiratory: decreased breath sounds, accessory muscle use, crackles Cardiovascular: regular rate, rhythm Gastrointestinal: soft, no organomegaly Extremities: pedal edema (3+ bilaterally with mottling) Neurologic/Psychiatric: other (Not following any commands, groans with movement ) Skin: cool, diaphoresis, mottled Lymphatic: no adenopathy Assessment/Plan Assessment/Plan Admission Status: Inpatient Order (span 2 midnights) Reason for Inpatient Admission: Requiring IV meds (1) Altered mental status Status: Acute Assessment & Plan: - Patient unresponsive and in active phase of dying - Spent 45 mins with son who is next of kin discussing DNR status and prognosis and transition to comfort care was made Qualifiers: Qualified Codes: R40.2422 - Elvira coma scale score 9-12, at arrival to emergency department (2) End of life care Status: Acute Assessment & Plan: - Palliative care nurse consulted and played active role in helping get patient transitioned to appropriate care needs (3) Cachexia Status: Chronic (4) Hypoxia Status: Acute (5) Dehydration Status: Acute (6) Renal insufficiency Status: Acute (7) Hypernatremia Status: Acute Clinical Quality Measures DVT/VTE Risk/Contraindication: Risk Factor Score Per Nursin RFS Level Per Nursing on Admit: 4+=Very High Copy Copies To 1: Missy ALVAREZ HOLLY R MD Dec 03, 2017 11:19
[2017-12-03] MEDS ORDERED: NS IV 1000 ML 1,000 ML IV SCH (11:20)
[2017-12-03] MEDS: NOREPINEPHRINE 4 MG in NS (IVPB) 250 ML IV SCH (11:22)
--- OUTSIDE RECORDS SUMMARY | 2017-12-03 12:34 | XMS REPORT ---
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 Name Role Phone ANDRES ONTIVEROS Unavailable PROBLEMS Type Condition ICD9-CM Code MJC05-QK Code Onset Dates Condition Status SNOMED Code Problem Renal insufficiency N28.9 Active 938028824 Problem Anemia D64.9 Active 354948464 Problem GERD (gastroesophageal reflux disease) K21.9 Active 286501933 Problem BPH (benign prostatic hyperplasia) N40.0 Active 629034617 Problem Chronic systolic congestive heart failure I50.22 Active 430394904 Problem Thrombocythemia D47.3 Active 3542971 Problem Acute deep vein thrombosis (DVT) of tibial vein of right lower extremity I82.441 Active 217669800541070 Problem Malnutrition E46 Active 0449190 Problem Peripheral vascular disease I73.9 Active 254406014 Problem Arthritis M19.90 Active 4607583 Problem Sprain of foot, left, initial encounter S93.602A Active 31524210 Problem Diverticulitis of large intestine without perforation or abscess without bleeding K57.32 Active 8617339 Problem 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 393305631 ALLERGIES No Known Allergies ENCOUNTERS Encounter Location Date Diagnosis [facility] [address] [facility] [id number] [address] Nov, [facility] [address], [place] [id number] Nov, Encounter for examination for admission to longterm Z02.2 ; Thrombocythemia D47.3 ; Unspecified intestinal obstruction, unspecified as to partial versus complete obstruction K56.609 ; Renal insufficiency N28.9 ; Peripheral vascular disease I73.9 ; Chronic systolic congestive heart failure I50.22 ; Malnutrition E46 and Hypokalemia E87.6 [facility] [address] [facility] [id number] [place] [address] 39328- 9028 Oct, [place] [address] [place] [id number] [place] [address] 07166- 1572 Aug, [place] [address] [place] [id number] [place] [address] 48087- 8702 Jul, Injury of chest wall, initial encounter S29.9XXA ; Hypokalemia E87.6 ; Thrombocythemia D47.3 ; Peripheral vascular disease I73.9 and Chronic systolic congestive heart failure I50.22 [place] [address] [address]- 0709 Jul, [place] [address] 18915- 0317 Jul, [place] [address] 21256- 5948 13 Jun, 2017 [place] [address] 81454- 2921 13 Jun, 2017 Chronic systolic congestive heart failure I50.22 and BPH ( benign prostatic hyperplasia) N40.0 [place] [address] 21320- 3375 Apr, Weight loss, abnormal R63.4 [place] [address] [place] [id number] [place] [address] 57831- 5548 02 Feb, 2017 Diverticulitis of large intestine without perforation or abscess without bleeding K57.32 [place] [address] [place] [id number] [place] [address] 35767- 6156 Jan, [place] [address] 70224- 6301 08 Oct, 2016 Leg edema, right R60.0 [place] [address] [place] [id number] [place] [address] 73025- 0721 02 Oct, 2016 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 [place] [address] 41368- 1581 September, 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 [facility] [id number] [place] [address] 56490- 0198 Aug, Arthritis M19.90 [facility] [id number] [place] [address] 43256- 6091 Aug, [facility] [id number] [place] [address] 29590 -1887 Aug, Osteopenia of left foot M85.872 [place] [address] [place] [id number] [place] [address] 79082- 1504 Jun, Chronic systolic congestive heart failure I50.22 [facility] [id number] [place] [address] 86014 -1727 May, Left foot pain M79.672 and Sprain of foot, left, initial encounter S93.602A [place] [address] [place] [id number] [place] [address] 81303- 7351 Feb, Chronic systolic congestive heart failure I50.22 [place] [address] [place] [id number] [place] [address] 36706- 5616 Jan, [place] [address] [place] [id number] [place] [address] 58376- 1690 Dec, [place] [address] [place] [address] [id number] [place] [address] 45531- 2034 September, Chronic systolic congestive heart failure I50.22 and Acute deep vein thrombosis (DVT) of tibial vein of right lower extremity I82.441 [place] [id number] [place] [address] 98378- 7295 Aug, Acute deep vein thrombosis (DVT) of tibial vein of right lower extremity I82.441 and Chronic systolic congestive heart failure I50.22 [facility] [id number] [place] [address] 87019- 7505 Jul, DVT (deep venous thrombosis) I82.409 [facility] [id number] [place] [address] 91366- 3935 Jul, Acute deep vein thrombosis (DVT) of tibial vein of right lower extremity I82.441 and Thrombocythemia D47.3 [facility] [id number] [place] [address] 36507- 9093 Jul, Acute deep vein thrombosis (DVT) of tibial vein of right lower extremity I82.441 and Renal insufficiency N28.9 [facility] [id number] [place] [address] 10343 -6574 Jul, Right ankle pain M25.571 and Leg edema, right R60.0 [facility] [id number] [place] [address] 65200- 3417 Jul, Gastroenteritis K52.9 [facility] [id number] [place] [address] 04527- 8530 September, Neuropathy 355.9 ; Onychomycosis 110.1 and Xerosis of skin 706.8 [facility] [id number] [place] [address] 91223- 9459 Aug, [facility] [id number] [place] [address] 79603- 1922 Aug, [facility] [id number] [place] [address] 39253- 9138 Aug, [facility] [id number] [place] [address] 80757- 8835 Jun, [facility] [id number] [place] [address] 93430- 7382 Jun, [facility] [id number] [place] [address] 05847- 5459 Jun, [facility] [id number] [place] [address] 07435- 7878 Jun, [facility] [id number] [place] [address] 12484- 2290 Mar, [facility] [place] [facility] [address] [id number] [place] [address]- 7160 Mar, [facility] [place] [facility] [address] [id number] [place] [address] 0818 Dec, [facility] [place] [facility] [address] [id number] [place] [address]- 7728 Dec, [facility] [place] [facility] [address] [id number] [place] [address]- 0591 Nov, [facility] [place] [facility] [address] [id number] [place] [address]- 9782 Nov, [facility] [place] [facility] [address] [id number] [place] [address]- 4193 Nov, [facility] [place] [facility] [address] [id number] [place] [address]- 1888 Nov, [facility] [place] [facility] [address] [id number] [place] [address]- 0066 Nov, [facility] [place] [facility] [address] [id number] [place] [address]- 5560 Nov, [facility] [place] [facility] [address] [id number] [place] [address]- 4902 Oct, [facility] [place] [facility] [address] [id number] [place] [address]- 9408 Oct, [facility] [place] [facility] [address] [id number] [place] [address]- 6483 Oct, [facility] [place] [facility] [address] [id number] [place] [address]- 1860 Oct, [facility] [place] [facility] [address] [id number] [place] [address]- 1347 September, [facility] [place] [facility] [address] [id number] [place] [address]- 7431 September, [facility] [place] [facility] [address] [id number] [address] 1396 September, [facility] [address] [id number] [address] Dec, [facility] [address] [address] 2546 Dec, [facility] [address] [address]- 4842 Nov, [facility] [address] [address]- 5875 Mar, [facility] [address] [address]- 2420 Mar, [facility] [address] [address]- 8945 Mar, [facility] [address] [address]- 4042 Apr, [facility] [address] [address]- 1822 Mar, [facility] [address] [address] 6861 Nov, IMMUNIZATIONS No Known Immunizations SOCIAL HISTORY Never Assessed REASON FOR VISIT low potassium, PHQ2, Audit C PLAN OF CARE Activity Details Follow Up 3 Months Reason: VITAL SIGNS Height 68 in 2017-07-03 Weight 122 lbs 2017-07-03 Temperature 97.2 degrees Fahrenheit 2017-07-03 Heart Rate 78 bpm 2017-07-03 Respiratory Rate 16 2017-07-03 BMI 18.55 kg/m2 2017-07-03 Blood pressure systolic 102 mmHg 2017-07-03 Blood pressure diastolic 68 mmHg 2017-07-03 MEDICATIONS Medication Instructions Dosage Frequency Start Date End Date Duration Status Sodium Bicarbonate 648 MG Orally 4 times a day 1 capsule 6h Active Protonix 40 MG Orally Once a day 1 tablet 24h Active Toprol XL 25 MG Orally Once a day 1 tablet 24h Active Aspirin 81 mg 1 Tablet by Oral route 1 time per day September, Active Hydroxyurea 500 MG Orally Once a day 1 capsule 24h Active Klor-Con 10 10 MEQ Orally Once a day 2 tablet with food 24h Active Poly Iron PN by oral route 2 times a day 150 mg 12h Active RESULTS No Results PROCEDURES Procedure Date Ordered Result Body Site [facility] VISIT ESTABLISHED PATIENT Jul 03, 2017 INSTRUCTIONS MEDICATIONS ADMINISTERED No Known Medications [...]
--- OUTSIDE RECORDS SUMMARY | 2017-12-03 12:35 | XMS REPORT ---
Author Author ANDRES ONTIVEROS [facility] Address [address] [place] [address] Care Team Providers Care Supervisor Of Officials Name Role Phone ANDRES ONTIVEROS Unavailable PROBLEMS Type Condition ICD9-CM Code AVR24-AO Code Onset Dates Condition Status SNOMED Code Problem Renal insufficiency N28.9 Active 204879801 Problem Anemia D64.9 Active 591380466 Problem GERD (gastroesophageal reflux disease) K21.9 Active 722178372 Problem BPH (benign prostatic hyperplasia) N40.0 Active 040020878 Problem Chronic systolic congestive heart failure I50.22 Active 779459373 Problem Thrombocythemia D47.3 Active 7488143 Problem Acute deep vein thrombosis (DVT) of tibial vein of right lower extremity I82.441 Active 586769677197288 Problem Malnutrition E46 Active 0210732 Problem Peripheral vascular disease I73.9 Active 610775747 Problem Arthritis M19.90 Active 2766504 Problem Sprain of foot, left, initial encounter S93.602A Active 32698122 Problem Diverticulitis of large intestine without perforation or abscess without bleeding K57.32 Active 8760245 Problem 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 420097370 ALLERGIES No Information ENCOUNTERS Encounter Location Date Diagnosis [address] [id number] Nov, Encounter for examination for admission to [facility] Z02.2 ; Thrombocythemia D47.3 ; Unspecified intestinal obstruction, unspecified as to partial versus complete obstruction K56.609 ; Renal insufficiency N28.9 ; Peripheral vascular disease I73.9 ; Chronic systolic congestive heart failure I50.22 ; Malnutrition E46 and Hypokalemia E87.6 [facility] [address] [facility] [id number] [address] Oct, [facility] [address] [place] [id number] [place] [address] 97872- 3953 Aug, [place] [address] [place] [address] [id number] [place] [address] 37881- 5718 Jul, Injury of chest wall, initial encounter S29.9XXA ; Hypokalemia E87.6 ; Thrombocythemia D47.3 ; Peripheral vascular disease I73.9 and Chronic systolic congestive heart failure I50.22 [place] [address] [place] [id number] [place] [address] 92922- 4477 Jul, [place] [address] [place] [id number] [place] [address] 46950- 6245 Jul, [place] [address] 55244- 9368 Jun, [place] [address] [place] [id number] [place] [address] 46128- 5799 Jun, Chronic systolic congestive heart failure I50.22 and BPH ( benign prostatic hyperplasia) N40.0 [place] [address] [place] [id number] [place] [address] 21637- 7487 Apr, Weight loss, abnormal R63.4 [place] [address] [place] [id number] [place] [address] 26931- 8159 02 Feb, 2017 Diverticulitis of large intestine without perforation or abscess without bleeding K57.32 [place] [address] [place] [id number] [place] [address] 57779- 0621 Jan, [place] [address] [place] [id number] [place] [address] 20129- 2918 Oct, Leg edema, right R60.0 [place] [address] [place] [id number] [place] [address] 18272- 2552 Oct, 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 [place] [address] [place] [id number] [place] [address] 85765- 6539 September, 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 [place] [address] [place] [address]- 0989 Aug, Arthritis M19.90 [facility] [id number] [place] [address] 59734- 1191 Aug, [facility] [id number] [place] [address] 29381 -2812 Aug, Osteopenia of left foot M85.872 [facility] [id number] [place] [address] 67925- 2453 Jun, Chronic systolic congestive heart failure I50.22 [facility] [id number] [place] [address] 75196 -7221 May, Left foot pain M79.672 and Sprain of foot, left, initial encounter S93.602A [place] [id number] [place] [address] 65702- 8325 Feb, Chronic systolic congestive heart failure I50.22 [facility] [id number] [place] [address] 06802- 6750 Jan, [place] [address] [id number] [place] [address] 04214- 0672 Dec, [facility] [id number] [place] [address] 06819- 1394 September, Chronic systolic congestive heart failure I50.22 and Acute deep vein thrombosis (DVT) of tibial vein of right lower extremity I82.441 [facility] [id number] [place] [address] 47619- 0751 Aug, Acute deep vein thrombosis (DVT) of tibial vein of right lower extremity I82.441 and Chronic systolic congestive heart failure I50.22 [facility] [id number] [place] [address] 74689- 0779 Jul, DVT (deep venous thrombosis) I82.409 [place] [address] [address] [id number] [place] [address] 14723- 9620 Jul, Acute deep vein thrombosis (DVT) of tibial vein of right lower extremity I82.441 and Thrombocythemia D47.3 [facility] [id number] [place] [address] 65197- 0301 Jul, Acute deep vein thrombosis (DVT) of tibial vein of right lower extremity I82.441 and Renal insufficiency N28.9 [facility] [id number] [place] [address] 72745 -7801 Jul, Right ankle pain M25.571 and Leg edema, right R60.0 [facility] [id number] [place] [address] 99809- 7610 Jul, Gastroenteritis K52.9 [facility] [id number] [place] [address] 83904- 0255 September, Neuropathy 355.9 ; Onychomycosis 110.1 and Xerosis of skin 706.8 [facility] [id number] [place] [address] 91921- 5152 Aug, [facility] [id number] [place] [address] 75611- 0974 Aug, [facility] [id number] [place] [address] 74592- 0944 Aug, [facility] [id number] [place] [address] 75875- 2369 Jun, [facility] [id number] [place] [address] 75591- 6122 Jun, [facility] [id number] [place] [address] 16209- 9449 Jun, [facility] [id number] [place] [address] 99370- 3712 Jun, [facility] [id number] [place] [address] 85959- 8540 Mar, [facility] [id number] [place] [address] 00105- 8102 Mar, [facility] [place] [facility] [address] [id number] [place] [address]- 2091 Dec, [facility] [place] [facility] [address] [id number] [place] [address]- 1102 Dec, [facility] [place] [facility] [address] [id number] [place] [address]- 0960 Nov, [facility] [place] [facility] [address] [id number] [place] [address]- 1106 Nov, [facility] [place] [facility] [address] [id number] [place] [address]- 8507 Nov, [facility] [place] [facility] [address] [id number] [place] [address]- 4338 Nov, [facility] [place] [facility] [address] [id number] [place] [address]- 9636 Nov, [facility] [place] [facility] [address] [id number] [place] [address]- 5196 Nov, [facility] [place] [facility] [address] [id number] [place] [address]- 3597 Oct, [facility] [place] [facility] [address] [id number] [place] [address]- 3841 Oct, [facility] [place] [facility] [address] [id number] [place] [address]- 8599 Oct, [facility] [place] [facility] [address] [id number] [place] [address]- 4608 Oct, [facility] [place] [facility] [address] [id number] [place] [address]- 8882 September, [facility] [place] [facility] [address] [id number] [place] [address]- 1665 September, [facility] [place] [facility] [address] [id number] [place] [address]- 1714 September, [facility] [place] [facility] [address] [id number] [address]- 2546 Dec, [facility] [address] [id number] [address]- 4116 Dec, [facility] [address] [address]- 4876 Nov, [facility] [address] [id number] [address]- 7700 Mar, [facility] [address] [address]- 7087 Mar, [facility] [address] [address]- 7061 Mar, [facility] [address] [address]- 9853 Apr, [facility] [address], [place] [address]- 5576 Mar, [facility] [id number], [place] [address]- 3956 Nov, IMMUNIZATIONS No Known Immunizations SOCIAL HISTORY Never Assessed REASON FOR VISIT COncerns from Home Health PLAN OF CARE VITAL SIGNS MEDICATIONS Unknown Medications RESULTS No Results PROCEDURES No Known procedures [...]
[2017-12-03] MEDS ORDERED: LORazepam INJ 2 MG/ML (ATIVAN) VIAL ONE (12:53)
[2017-12-03] MEDS ORDERED: LORazepam INJ 2 MG/ML (ATIVAN) VIAL IVP PRN (13:00)
[2017-12-03] MEDS ORDERED: ATROPINE 1% OPHTHALMIC SOLN 2 ML SL PRN (13:00)
[2017-12-03] MEDS ORDERED: morphine INJ 4 MG/ML 1 ML (VIAL/SYRINGE) IV PRN (13:00)
[2017-12-03] MEDS ORDERED: GLYCOPYRROLATE 0.2 MG/ML (ROBINUL) 2 ML VIAL IV PRN (13:00)
[2017-12-03] MEDS ORDERED: SCOPOLAMINE 1.5 MG (TRANSDERM-SCOP) PATCH TOP SCH (13:00)
[2017-12-03] MEDS ORDERED: ARTIFICAL TEARS 0.4 ML UNIT DOSE (REFRESH PLUS) OU PRN (13:00)
--- NOTE | 2017-12-03 19:54 | Discharge Summary ---
Diagnosis/Chief Complaint Date of Admission Dec 02, 2017 at 20:00 Date of Discharge Dec 03, 2017 at 16:35 Admission Diagnosis Admission Diagnosis Sepsis suspected from UTI Altered Mental Status Comfort Care Hypernatremia Severe Dehydration Hypoxia Acute Renal Failure Discharge Diagnosis See Above Chief Complaint/HPI Chief Complaint/HPI 72 yo M that presented from [place] unresponsive. Spoke with [place] nurse and she stated that he started to feel bad 2 days ago and stopped communicating yesterday prior to being sent to [place] Spoke with son who is next of kin and he was in agreement with making patient DNR and transitioning to comfort care. Son then notified other family of grave prognosis as patient was in active dying phase. Patient was transitioned to comfort care with family at bedside and passed peacefully this afternoon. Discharge Summary-Simple/Stand Consultations Discharge Physical Examination Allergies: Coded Allergies: No Known Drug Allergies (Verified , 06/14/17) Vitals & I&Os Vital Sign - Last 12Hours Date Time Temp Pulse Resp B/P (MAP) Pulse Ox O2 Delivery O2 Flow Rate FiO2 12/03/17 15:00 Room Air 12/03/17 13:00 35 12/03/17 13:00 97.4 23 75/49 (58) 70 12/03/17 12:28 15.00 12/02/17 17:13 94 Intake and Output 12/03/17 00:00 Intake Total 2450 ml Output Total 0 ml Balance 2450 ml General Appearance: Other () Hospital Course See final discharge diagnosis. Radiology Reviewed Date of Exam: 12/02/17 CHEST 1 VIEW, AP/PA ONLY Clinical indication: Patient is unresponsive. Exam: Portable chest x-ray upright view. Comparison: Portable chest x-ray semiupright view. Findings: There is no pneumothorax. There is blunting of both costophrenic angle regions concerning for bilateral pleural effusions which was also noted on the prior study. There is bilateral groundglass opacifications in both midlung montero and patchy consolidation in both lung bases. There is mild cardiomegaly and mild pulmonary vascular congestion. There are postop changes to the upper abdominal region. Impression: 1.: There is bilateral pleural effusions and bilateral lung infiltrates which may represent pulmonary congestion. Infectious or inflammatory process cannot be completely excluded. There is also bilateral pleural effusions. 2: There is mild cardiomegaly with mild pulmonary vascular congestion which could be related to congestive heart failure. Date of Exam: 12/02/17 CT HEAD/CERVICAL SPINE WO Clinical indication: Patient fell twice 2 days ago, mostly unresponsive now. Exam: Head CT without IV contrast. Axial CT scan of the cervical spine with sagittal and coronal reformations. Comparison: None. Findings: Head CT: There is no evidence of acute cerebral infarct, intracranial hemorrhage, or gross mass effect. There is diffuse brain parenchymal volume loss seen. There are patchy and confluent areas of low-attenuation white matter changes throughout both cerebral hemispheres and periventricular region seen. 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 There are small chronic lacunar infarcts involving right basal ganglia region and left cerebellum. There is no significant midline shift or herniation. There is no evidence of hydrocephalus. The basal cisterns are unremarkable. The skull, extracranial soft tissue, and orbits are unremarkable. There is moderate mucosal thickening involving the right maxillary sinus, ethmoid sinus and frontal sinus. There is air-fluid level in the right frontal sinus. Temporal bones show no significant abnormality. Cervical spine: There is no acute cervical spine fracture or dislocation. There are cervical spine degenerative disease with vertebral body spurs, facet arthropathy, moderate to severe loss of intervertebral disc height seen from the C2-C7 levels. There is multilevel moderate to severe bony neural foramen narrowing involving the cervical spine and mild to moderate areas of central canal stenosis seen mainly at the C4-C5 and C5-C6 levels. Soft tissue edema of the neck is noted. There is partially visualized bilateral pleural effusions. Impression: 1: There is no definite CT evidence of interval acute cerebral infarction, intracranial hemorrhage, or mass seen. Given the diffuse low attenuation changes throughout the brain parenchyma which can obscure more subtle findings, if there is clinical concern for acute cerebral infarction, MRI of the brain would better evaluate. 2: Suspected multiple areas of chronic ischemic changes involving the brain parenchyma. There is also diffuse brain parenchymal volume loss. 3: There is cervical spine degenerative disease with no acute cervical spine fracture or dislocation. 4: Paranasal sinusitis. 5: Incompletely imaged bilateral pleural effusions. of Exam: 12/02/17 CT CHEST/ABDOMEN/PELVIS W Clinical indication: Patient came to ER with core temperature of 88 degrees mostly unresponsive, coughing and unable to answer questions. Exam: CT scan of the chest, abdomen and pelvis performed with 100 cc of Omnipaque 350 IV contrast. Coronal and sagittal reformatted images were created. Comparison: CT scan of the abdomen and pelvis without contrast dated 11/01/2017. Findings: Chest CT: There is no significant change to the moderate to large size bilateral pleural effusions. There is compressive atelectasis and consolidation involving both lower lobes with only a small amount of aeration, seen anteriorly. There is mild compressive atelectasis involving the posterior aspects of both upper lobes. Cardiomegaly is seen. Pulmonary bronchi show no significant abnormality. The thoracic aorta is nonaneurysmal and measures 3.8 cm in its ascending portion. There is no thoracic, aortic or abdominal aortic aneurysm or dissection seen. The celiac artery, SMA and bilateral renal arteries are patent. The bilateral iliac arteries are unremarkable. There is mild enlargement of the left main pulmonary artery measuring 3.3 cm. This may be related to lung volume loss versus pulmonary hypertension. Otherwise, the visualized pulmonary vasculature shows no gross abnormality. Visualized portion of thyroid gland is slightly heterogeneous. There is anasarca noted. There is no major mediastinal or hilar lymphadenopathy. CT abdomen and pelvis: There is geographic heterogeneous enhancement of the liver seen on this predominantly arterial phase exam. There is no measurable mass seen. Liver is mildly enlarged measuring 17.3 cm in craniocaudal dimension. The spleen is not visualized. There is nonspecific heterogeneous and irregular appearance of both kidneys which was also noted on the prior CT scan. There appears to be a large cyst involving the anterior aspect of left kidney which measures grossly 8.2 cm. There is diffuse abdominal ascites and anasarca, which greatly limits evaluation for intra-abdominal structures. The pancreas has stable configuration. Gallbladder is surgically resected as noted on the prior study. There is no evidence of dilated small or large bowel. Previously seen dilated large bowel has resolved. There are collapsed loops of small bowel overlying the abdomen. There is no evidence of enteric contrast pooling or abnormal contrast blush seen as visualized. There is a stable fluid collection around this structure in the right lateral coronal fascia noted which appears stable. There are multiple surgical clips in the epigastric region and paraesophageal region, distally. There are postop changes involving the mid abdominal intestines and the left pelvis region. There is no significant contrast excretion on delayed phases. Cheng catheter is noted. Wires within the rectum are noted. There are degenerative spurs seen throughout the visualized portion of the spine. Right hip arthroplasty and screws in left hip are seen with streak artifact obscuring portion of the pelvis. Impression: 1: There is no significant change in the moderate to large bilateral pleural effusions with compressive atelectasis involving both lungs. 2: The thoracic and abdominal aorta shows no evidence of aneurysmal dilation or dissection. 3: There is anasarca and diffuse abdominal ascites which limits evaluation of organ structures. 4: There is stable nonspecific heterogeneous appearance of both kidneys. Large left renal cystic structure is suspected. 5: There is no significant contrast excretion of the kidneys on delayed phases. This may be related to hypotension/shock or renal disease. 6: There is no evidence of intestinal obstruction or intraabdominal free air. The previously seen enlarged colon has resolved. 7: The remainder of this exam shows no significant interval change compared to the prior study of comparison. Discussion & Recommendations 72 yo M that presented to ER with suspected sepsis from UTI with recent fall in [place]. Patient had grave prognosis and was in active phase of dying at time of visit. Patient was transitioned to comfort care after speaking with son who was next of kin. See H&P Discharge Condition at discharge Instructions to patient/family Please see electronic discharge instructions given to patient. Discharge Medications Reviewed and agree with Discharge Medication list on patient's Discharge Instruction sheet Clinical Quality Measures DVT/VTE Risk/Contraindication: Risk Factor Score Per Nursin RFS Level Per Nursing on Admit: 4+=Very High Comfort Measures/ Type of Care: Comfort Measures Cardiopulmonary Arrest: Cardiorespiratory Arrest Date of : Dec 03, 2017 Time of : 15:12 Present on floor at time of Copy Copies To 1: Missy ALVAREZ HOLLY R MD Dec 03, 2017 19:54
== END 2017-12-03 16:35 | disposition expired | DRG 872 ==
LOC: EDUNIT# 16:43 → ER 16:45 → ICU 20:00
PROVIDERS: ADMIT Family Medicine; ATTEND Family Medicine
DX: A41.9 Sepsis, unspecified organism (principal); N39.0 Urinary tract infection, site not specified; N17.9 Acute kidney failure, unspecified; E87.0 Hyperosmolality and hypernatremia; I50.22 Chronic systolic (congestive) heart failure; R64 Cachexia; Z51.5 Encounter for palliative care; Z66 Do not resuscitate; S00.83XA Contusion of other part of head, initial encounter; I11.0 Hypertensive heart disease with heart failure; E86.0 Dehydration; K21.9 Gastro-esophageal reflux disease without esophagitis; D47.3 Essential (hemorrhagic) thrombocythemia; K22.70 Barrett's esophagus without dysplasia; D51.0 Vitamin B12 deficiency anemia due to intrinsic factor deficiency; R40.2422 Glasgow coma scale score 9-12, at arrival to emergency department; R09.02 Hypoxemia; I25.10 Atherosclerotic heart disease of native coronary artery without angina pectoris; E78.00 Pure hypercholesterolemia, unspecified; N40.0 Benign prostatic hyperplasia without lower urinary tract symptoms; Z85.828 Personal history of other malignant neoplasm of skin; Z96.641 Presence of right artificial hip joint; Z86.711 Personal history of pulmonary embolism; Z86.718 Personal history of other venous thrombosis and embolism; Z90.81 Acquired absence of spleen; W19.XXXA Unspecified fall, initial encounter; Y92.129 Unspecified place in nursing home as the place of occurrence of the external cause
CPT/HCPCS: 36415; 51702; 70450; 71045; 71260; 72125; 74177; 80048; 80053; 81000; 82962; 83605; 83735; 84100; 85007; 85025; 85027; 85610; 85730; 87040; 87077; 87081; 87088; 87186; 93005; 94640; 96361; 96365